=== PATIENT | male | born 1955 | race Caucasian/White ===

== ENCOUNTER → 2016-07-01 | Outpatient (CLI) | payer BC ==
[~2016-07-01] MED LIST: ACET-1256 PO; ASCA500 PO; ASPEC325 PO; BND25X PO; CETI10TA84 PO; CLC100 PO; CLTP PO; CYAN10005 PO; DIPH-437 PO; DXM/4 PO; FLAX1CAP11; GABA10PO PO; GABA300C19 PO; GFNSR600 PO; METO50TA16 PO; MRLP17 PO; MULT-506 PO; OMEGCAP2 PO; PANT40TA PO; POTA20TA16 PO; REVLIMID 5 MG PO; SENN-61 PO; SNQ/25 PO; ZOLEDRONIC ACID IV; [UNRECOGNIZED DRUG - OTHER] IV
--- NOTE | 2016-07-01 12:54 | DIAGNOSTIC IMAGING REPORT ---
RIGHT FOOT MIN 3 VIEWS ROUTINE CLINICAL HISTORY: Myeloma. COMPARISON: Right foot radiographs June 25, 2015. FINDINGS: The tarsometatarsal joints are intact. 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 No osseous lesion is identified by radiography within the right foot. IMPRESSION: 1. No osseous lesion identified within the right foot by radiography. 2. No change in severe arthritis of the right first metatarsophalangeal joint. Electronically signed by: Zack Turcios M.D. 07/01/2016 12:52 PM Dictated Date/Time: 07/01/2016 12:49 PM
--- NOTE | 2016-07-01 12:56 | DIAGNOSTIC IMAGING REPORT ---
LEFT FOOT MIN 3 VIEWS ROUTINE CLINICAL HISTORY: Myeloma. COMPARISON: Left foot radiograph June 25, 2015. FINDINGS: Alignment of the left foot is anatomic. There is severe arthritis of the left first metatarsophalangeal joint. No osseous lesion is identified by radiography within the left foot. IMPRESSION: 1. No osseous lesion within the left by radiography. 2. 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 Electronically signed by: Zack Turcios M.D. 07/01/2016 12:54 PM Dictated Date/Time: 07/01/2016 12:53 PM
--- NOTE | 2016-07-01 13:25 | DIAGNOSTIC IMAGING REPORT ---
SKELETAL SURVEY COMPLETE CLINICAL HISTORY: MYELOMA COMPARISON STUDY: Skeletal survey 05/06/2015. FINDINGS: 19 images of the axial and appendicular skeleton were submitted. Innumerable lytic lesions seen scattered throughout the visualized osseous structures are not significant changed. This is consistent with the patient's history of multiple myeloma. Old pathologic fractures within the ribs and spine remain unchanged. No acute fractures identified. IMPRESSION: Overall, no significant change compared to the prior study. Innumerable lytic lesions consistent with patient's history of multiple myeloma are again noted. Electronically signed by: Keyshawn Gtz M.D. 07/01/2016 1:24 PM Dictated Date/Time: 07/01/2016 12:50 PM
== END | disposition home or self-care (01) ==
LOC: C.RAD 11:12
PROVIDERS: ATTEND Nurse Practitioner
DX: C90.02 Multiple myeloma in relapse (principal)

== ENCOUNTER → 2016-10-12 | Outpatient (CLI) | payer BC ==
[~2016-10-12] MED LIST changes: +GABA-1218 PO; -GABA300C19 PO
--- NOTE | 2016-10-12 12:52 | DIAGNOSTIC IMAGING REPORT ---
CHEST 2 VIEWS ROUTINE CLINICAL HISTORY: Cough, multiple myeloma. COMPARISON STUDY: 08/28/2015 FINDINGS: Haziness at the level of cardiophrenic angles, is a finding which is felt to be secondary to prominent fat pads. The heart is normal in size. There is no failure. There is no focal pulmonary consolidation. There are no pleural effusions. There are old bilateral rib deformities.[ IMPRESSION: No active disease in the chest. Electronically signed by: Joselo Koch M.D. 10/12/2016 12:51 PM Dictated Date/Time: 10/12/2016 12:50 PM
== END | disposition home or self-care (01) ==
LOC: C.RAD 12:25
PROVIDERS: ATTEND Internal Medicine Hematology & Oncology
DX: C90.02 Multiple myeloma in relapse (principal)

== ENCOUNTER → 2016-12-02 | Outpatient (CLI) | payer BC ==
[~2016-12-02] MED LIST changes: -GABA-1218 PO; +GABA300C19 PO
--- NOTE | 2016-12-13 13:45 | PULMONARY FUNCTION TEST ---
Spirometry shows a mild decrease in forced vital capacity and FEV1 with a normal FEV1/FVC ratio. This would be compatible with mild restriction. Repeat study done following bronchodilators showed no significant change in function. Lung volumes showed decreased RV, FRC and TLC. This would be compatible with restriction. Diffusion was mildly decreased at 68%. However, when corrected for alveolar ventilation, it was normal. Clinical correlation is advised.
== END | disposition home or self-care (01) ==
LOC: C.RC 10:25
PROVIDERS: ATTEND Family Medicine
DX: J30.2 Other seasonal allergic rhinitis (principal); C90.00 Multiple myeloma not having achieved remission

== ENCOUNTER → 2017-05-04 | Outpatient (CLI) | payer BC ==
[~2017-05-04] MED LIST changes: +AMOX875T PO; +ASCOTAB PO; +ASPI81TA28 PO; +CALC-354 PO; +CHOL1TAB42 PO; +CLR10 PO; +CRD200 PO; +DFC200 PO; +DIPH25TA33 PO; +FIDA1TAB PO; -FLAX1CAP11; +FLAX1CAP11 PO; +GABA-1218 PO; -GABA300C19 PO; +GUAI1TAB55 PO; +LENA10CA3 PO; +MBXC PO; +METO-722 PO; +METO50TA8 PO; +POLY335019 PO; +POTA-639 PO; -POTA20TA16 PO; +VANC1CAP3 PO
--- NOTE | 2017-05-04 15:41 | DIAGNOSTIC IMAGING REPORT ---
PET/CT FULL BODY CLINICAL HISTORY: 61 years-old Male presenting with MYELOMA. TECHNIQUE: PET/CT was performed from the vertex through the feet following the intravenous administration of 9.204 mCi of F18-FDG. Blood glucose level 85 mg/dL. The injection was performed at 12:35 PM and imaging began at 3:[address] was performed for attenuation correction purposes and anatomic localization. COMPARISON: Skeletal survey from 07/01/2016. CT DOSE (mGy.cm): The estimated cumulative dose is 2499.72. FINDINGS: Head and neck: No FDG-avid mass in the visualized portion of the head or neck. No FDG avid or enlarged lymph nodes in the neck. Chest: No FDG-avid lymphadenopathy or pulmonary opacities. No axillary, supraclavicular, or mediastinal lymphadenopathy. Evaluation of the demarco limited without intravenous contrast. Atherosclerosis of the aorta. Normal heart size. No pericardial or pleural effusion. No focal infiltrate or nodule. Airways patent. Abdomen and pelvis: Normal physiologic distribution of radiotracer in the gastrointestinal and genitourinary tracts. No FDG avid lymphadenopathy or mass lesion. Musculoskeletal: Innumerable lucent lesions throughout the axial and appendicular skeleton compatible with the patient's known diagnosis of multiple myeloma. None of these lesions demonstrate FDG avidity. Lower extremities: Lucent lesions in the more distal appendicular skeleton of the lower extremity are not apparent. No FDG avidity in the lower extremities. IMPRESSION: 1. Initial PET/CT demonstrates aneurysmal lucent lesions throughout the axial and appendicular skeleton compatible with the patient's known diagnosis of multiple myeloma. However, none of these lesions demonstrate FDG avidity. This could be compatible with quiescent disease. Electronically signed by: Edi Washburn M.D. 05/04/2017 3:40 PM Dictated Date/Time: 05/04/2017 3:30 PM
== END | disposition home or self-care (01) ==
LOC: C.PET 11:28
PROVIDERS: ATTEND Internal Medicine Hematology & Oncology
DX: C90.02 Multiple myeloma in relapse (principal)

== ENCOUNTER → 2017-05-23 | Outpatient (CLI) | payer OTHER ==
[~2017-05-23] MED LIST changes: -AMOX875T PO; -ASCOTAB PO; -ASPI81TA28 PO; -CALC-354 PO; -CHOL1TAB42 PO; -CLR10 PO; -CRD200 PO; -DFC200 PO; -DIPH25TA33 PO; -FIDA1TAB PO; +FLAX1CAP11; -FLAX1CAP11 PO; -GUAI1TAB55 PO; -LENA10CA3 PO; -MBXC PO; -METO-722 PO; -METO50TA8 PO; -POLY335019 PO; -POTA-639 PO; +POTA20TA16 PO; -VANC1CAP3 PO
--- NOTE | 2017-05-23 12:06 | DIAGNOSTIC IMAGING REPORT ---
THORACIC SPINE 3 VIEWS ROUTINE, L-SPINE MIN 4 VIEWS ROUTINE HISTORY: 62 years-old Male M54.6,C90.00 acute back pain with history of multiple myeloma COMPARISON: PET CT 05/04/2017, skeletal survey radiographs 07/01/2016 and 05/06/2015 TECHNIQUE: 3 views of the thoracic spine and 5 views of the lumbar spine FINDINGS: THORACIC: Innumerable ill-defined lucent lesions are again seen throughout the thoracic spine and ribs. Chronic compression deformity of T11 again seen. Multilevel endplate degenerative changes are redemonstrated without acute fracture or subluxation identified. LUMBAR: Innumerable ill-defined lucent lesions are seen throughout the lumbar spine and pelvis. Multilevel endplate degenerative changes and facet arthrosis. No acute fracture or subluxation. Probable phleboliths of the right hemipelvis are noted. IMPRESSION: 1. No acute fracture or subluxation of the thoracic or lumbar spine. 2. Innumerable lytic lesions are again seen throughout compatible with patient history of multiple myeloma. 3. Chronic compression deformity of T11. The above report was generated using voice recognition software. It may contain grammatical, syntax or spelling errors. Electronically signed by: Mike Cullen M.D. 05/23/2017 12:05 PM Dictated Date/Time: 05/23/2017 11:59 AM
== END | disposition home or self-care (01) ==
LOC: C.RAD1850 11:20
PROVIDERS: ATTEND Family Medicine
DX: M54.6 Pain in thoracic spine (principal); C90.00 Multiple myeloma not having achieved remission; M53.84 Other specified dorsopathies, thoracic region

== ENCOUNTER → 2017-12-13 | Outpatient (CLI) | payer OTHER ==
[~2017-12-13] MED LIST changes: -ACET-1256 PO; -ASCA500 PO; +ASCOTAB PO; -ASPEC325 PO; +ASPI81TA28 PO; -BND25X PO; +CALC-354 PO; +CHOL1TAB42 PO; -CLC100 PO; +CLR10 PO; -CLTP PO; +CRD200 PO; -CYAN10005 PO; +DIPH25TA33 PO; +FIDA1TAB PO; -FLAX1CAP11; +FLAX1CAP11 PO; -GABA-1218 PO; -GFNSR600 PO; +GUAI1TAB55 PO; +LENA10CA3 PO; +MBXC PO; +METO-722 PO; -METO50TA16 PO; -MRLP17 PO; +POLY335019 PO; +POTA-639 PO; -POTA20TA16 PO; -ZOLEDRONIC ACID IV; -[UNRECOGNIZED DRUG - OTHER] IV
--- NOTE | 2017-12-13 13:57 | DIAGNOSTIC IMAGING REPORT ---
CHEST 2 VIEWS ROUTINE CLINICAL HISTORY: PNEUMONIA dyspnea COMPARISON STUDY: 11/07/2017 FINDINGS: Mild stable cardia megaly. Lungs are considered clear. There are no focal infiltrates. IMPRESSION: Lungs are now considered clear. The above report was generated using voice recognition software. It may contain grammatical, syntax or spelling errors. Electronically signed by: Dante Lee M.D. 12/13/2017 1:56 PM Dictated Date/Time: 12/13/2017 1:54 PM
== END | disposition home or self-care (01) ==
LOC: C.RAD1850 13:45
PROVIDERS: ATTEND Family Medicine
DX: J18.9 Pneumonia, unspecified organism (principal)

== ENCOUNTER 2020-02-29 19:16 | Inpatient (IN) ==
[~2020-02-29 19:16] MED LIST changes: -ASCOTAB PO; -ASPI81TA28 PO; -CALC-354 PO; -CETI10TA84 PO; -CHOL1TAB42 PO; -CLR10 PO; -CRD200 PO; -DIPH-437 PO; -DIPH25TA33 PO; -DXM/4 PO; +ETOMIDATE 2 MG/ML 20 ML VIAL IV ONE; -FIDA1TAB PO; -FLAX1CAP11 PO; -GABA10PO PO; -GUAI1TAB55 PO; -LENA10CA3 PO; -MBXC PO; -METO-722 PO; -MULT-506 PO; -OMEGCAP2 PO; -PANT40TA PO; -POLY335019 PO; -POTA-639 PO; -REVLIMID 5 MG PO; +ROCURONIUM BROMIDE 10 MG/ML 10 ML VIAL IV ONE; -SENN-61 PO; -SNQ/25 PO; +SODIUM CHLORIDE 0.9% 10ML FLUSH IV ONE
[2020-02-29] MEDS ORDERED: ACETAMINOPHEN 500 MG TAB PO STA (19:32)
[2020-02-29] MEDS ORDERED: CEFEPIME 2,000 MG/20 ML VIAL IV STA (19:32)
[2020-02-29] MEDS ORDERED: ACETAMINOPHEN 650 MG SUPP PR STA (19:42)
[2020-02-29] MEDS ORDERED: SODIUM CHLORIDE 0.9% 1000ML 1,000 ML IV SCH (19:45)
--- NOTE | 2020-02-29 20:01 | XRay Report ---
XR chest 1V portable HISTORY: SEPSIS COMPARISON: Chest 12/07/2018. FINDINGS: No pneumothorax. No pleural effusions. The heart remains mildly enlarged. Left subclavian P ort-A-Cath terminates at the SVC. There is a hazy left upper lobe airspace opacity. The right lung ap pears clear. IMPRESSION: Hazy left upper lobe airspace opacity. This likely represents a pneumonia. Recommend follow-up to ens ure resolution. ACT 112: Negative or not required by law. Electronically signed by: Keyshawn Gtz M.D. 02/29/2020 8:00 PM
[2020-02-29 20:04] LABS: Basophils # (auto) 0.03 K/uL (0-0.2); Basophils % (auto) 0.4 %; Hematocrit (blood only) 31.7 % (42-52); Hemoglobin 10.6 g/dL (14.0-18.0); Immature Granulocytes # (auto) 0.26 K/uL (0.00-0.02); Immature Granulocytes % (auto) 3.8 %; Lymphocytes # (auto) 0.69 K/uL (1.2-3.4); Lymphocytes % (auto) 10.2 %; Mean Corpuscular Hemoglobin 35.6 pg (25-34); Mean Corpuscular Hgb Conc 33.4 g/dL (32-36); Mean Corpuscular Volume 106.4 fL (80-100); Mean Platelet Volume 10.4 fL (7.4-10.4); Monocytes # (auto) 0.44 K/uL (0.11-0.59); Monocytes % (auto) 6.5 %; Neutrophils # (auto) 5.35 K/uL (1.4-6.5); Neutrophils % (auto) 79.1 %; Nucleated RBC # (auto) 0.06 K/uL (0-0); Nucleated RBC % (auto) 0.9 %; Platelet Count 145 K/uL (130-400); RDW Standard Deviation 57.9 fL (36.4-46.3); Red Blood Count 2.98 M/uL (4.7-6.1); White Blood Count 6.77 K/uL (4.8-10.8)
[2020-02-29 20:06] LABS: iSTAT Creatinine 2.2 mg/dl (0.6-1.3); iSTAT Hemoglobin 11.2 g/dl (14.0-18.0); iSTAT Ionized Calcium 1.08 mmol/l (1.12-1.32); iSTAT Potassium 3.1 mmol/L (3.3-5.0)
[2020-02-29] MEDS ORDERED: ONDANSETRON INJ 2 MG/ML 2 ML VIAL IV STA (20:06)
[2020-02-29 20:14] LABS: INR 1.2 (0.9-1.1); Partial Thromboplastin Ratio 0.9; Partial Thromboplastin Time 25.5 Seconds (21.0-31.0); Prothrombin Time 12.3 Seconds (9.0-12.0)
--- NOTE | 2020-02-29 20:19 | Emergency Department Note ---
Impression & Plan Sepsis, Acute confusion, Fever, Acute dehydration, Atrial fibrillation with rapid ventricular response, Rhabdomyolysis ED Provider Note NAME: PATRIC MAYER AGE: 64 SEX: M : 1955 ARRIVES VIA: Ambulance INFORMANT: [ems, nurses] ED PROVIDER(S): [Jair Pierre MD] CHIEF COMPLAINT: Illness HISTORY OF PRESENT ILLNESS: The patient is a 64-year-old male who was brought by EMS for an illness and change in mental state. Patient was not seen today by his neighbors. He typically goes out to get his mail/paper and he did not leave his house. They called for a wellness check. The patient was found in his home on the floor, he was confused and it appeared as if he had been down for some time. Blisters were noticed about his body and on his left arm. He was brought for evaluation. No further history is obtainable as the patient is altered. There is no family at the bedside, the history was obtained from the EMS crew and the nursing staff. Of note, there was a mention to the EMS crew from one of the neighbors that they think he may have had cancer therapy yesterday. REVIEW OF SYSTEMS: Unobtainable given his mental state. PMHx/PSHx: See Below SOCIAL HISTORY: See Below. PHYSICAL EXAM: GENERAL: Patient is in significant distress, vomiting. HEENT: No acute trauma, normocephalic atraumatic, mucous membranes dry, no nasal congestion, no scleral icterus. Pupils equal and reactive to light. NECK: No stridor, no adenopathy, no meningismus, trachea is midline. LUNGS: Clear to auscultation bilaterally, no wheeze, no rhonchi, breath sounds equal. Increased respiratory rate, no respiratory distress. HEART: Without murmurs gallops or rubs, definitely tachycardic, irregular rhythm. ABDOMEN: Soft, nontender, bowel sounds positive, no hernias, no peritonitis. EXTREMITIES: No cyanosis or edema, full range of motion of all the joints witho ut pain or difficulty. There is a large bandage about the left forearm from the wrist to the elbow. There is an IV in the left AC. NEUROLOGIC: Awake. Answers to his voice. Confused. Moves all extremities. SKIN: Patient has an erythematous flattened rash across the abdomen primarily on the left. He has several areas of linear clear fluid-filled blisters, one area around the left bicep and one across the mid abdomen. He has clear fluid-filled blisters about his left forearm that have been bandaged. No jaundice. DIFFERENTIAL DIAGNOSIS: Sepsis, UTI, pneumonia, metabolic, intracranial bleeding, UTI, chest or abdominal trauma, cervical spine injury, chemo reaction, coronavirus, electrolyte abnormalities, cardiac sources, intracerebral event, toxicologic, neurologic, as well as other pathologies. EMERGENCY DEPARTMENT COURSE/PROCEDURES: ECG: Indication was tachycardia. The ECG shows a rapid atrial fibrillation with a rate of 151. There is diffuse ST depression/change. No ST elevation. No PVCs. The QTc is 545. Continuous Cardiac Monitoring: An order was placed for continuous cardiac monitoring. The monitor shows a rate of 119 with atrial fibrillation. Critical Care Note: I have personally spent 65 minutes of critical care time in the direct management of this patient. This includes bedside care, interpretation of diagnostic studies, and testing, discussion with consultants, patient, and family members, and other required patient management activities. This 65 minutes is in excess of all separately billable procedures. MEDICAL DECISION MAKING: There is no leukocytosis. The patient is anemic with a hemoglobin of 10.6. The anemia is baseline looking back at previous testing. There is a normal platelet count. No concerning coagulopathy. Renal panel testing shows acute 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 with a creatinine of 2.41. No worrisome electrolyte abnormality. There were some subtle liver enzyme elevations. EKG shows an atrial fibrillation with some ST depression diffusely. Cardiac troponin was slightly elevated consistent with cardiac injury or strain. Procalcitonin level was elevated consistent with infection. Lactic acid level was elevated at over 3 consistent with infection. Urinalysis showed dehydration, there was no obvious infection. Coronavirus testing returned negative. Influenza testing returned negative. Total CK was elevated consistent with rhabdomyolysis. Chest film showed a patchy left upper lung infiltrate, no CHF. Chest CT shows a left upper lung infiltrate. Some chronic findings were noted. No evidence for acute rib fracture. Brain CT showed no acute bleed or mass-effect. C-spine CT showed no acute fracture. Abdominal and pelvis CT showed no acute intra-abdominal injury, there was no free air or evidence for abscess. The patient presented quite ill. He was confused and very febrile. He appeared dehydrated. The patient was aggressively managed. He received 2 L of IV saline, he was given a liter of lactated Ringer's. His port was accessed. A peripheral line was placed. He received IV cefepime and IV vancomycin as empiric antibiotic coverage. He was given IV Zofran for nausea. He received IV Lopressor to help control the heart rate. He was given rectal and then IV Tylenol. He was placed on a cooling blanket. With the above treatment, the patient has made improvement. His heart rate has come down, his temperature has come down. He is now answering questions. He states he fell yesterday and could not get up on his own. He has not had chemo treatment for about 4 weeks. He feels weak and thirsty right now. He denies pain. I reexamined the patient after he was more alert. He does not have meningismus. He is resting comfortably. He does not appear in respiratory distress. I spoke to the patient's sisters over the phone. As per their conversation with the patient, he is not to be aggressively resuscitated. He does not want to be on a ventilator or want CPR. He wants to be made comfortable. Hydration, antibiotics, oxygen therapy would be welcomed. Patient is aware of his findings thus far. I did speak to the ICU biomedical scientist. I spoke with the on-call hospitalist. Case management has been involved. Admission is clearly warranted. At this point, it appears he has pneumonia, bacteremia is a concern and blood cultures are of course pending. He was quite dehydrated and appears to be in rhabdomyolysis, likely from his prolonged downtime. Past Med/Surg History Medical History Atrial fibrillation DX SUMMER 2017 - FOLLOWS W/ DR. KENNEY Constipation GERD (gastroesophageal reflux disease) HTN (hypertension) Multiple myeloma Neuropathy BL FOOT; 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 CANCER TREATMENT Seasonal allergies Surgical History History of bone marrow biopsy History of cataract surgery BL History of colonoscopy History of incision and drainage CYST - RT GROIN History of stem cell transplant History of surgery CYST REMOVED FROM COCCYX 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; 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 Family History (System 10/30/19 @ 15:37 by Maricel Arizmendi) Family/Other Family history of diabetes mellitus Social History Smoking Status: Never smoker Second Hand Exposure: No; Do You Dip or Chew Tobacco: No; Hx Alcohol Use: Yes Alcohol type: wine Hx Substance Use: No Preferred Language: Maltese Communication Ability: Effective Predatory Animal Exterminator Required: No Beliefs That Will Affect Care: None Current Living Situation: Alone Other Information That Helps Us Care for You: No Feels Safe at Home: Yes Safety Concerns: Feels Safe At This Time Assistive Devices: None Allergies Allergies Allergy/AdvReac Type Severity Reaction Status Date / Time epinephrine Allergy Intermediate STATES Verified 10/30/19 15:37 GETS A "WARNER" levofloxacin Allergy Intermediate RASH Verified 02/29/20 22:23 Sulfa (Sulfonamide Allergy Intermediate Rash Verified 02/29/20 22:24 Antibiotics) house dust Allergy Unknown Itchy Verified 02/29/20 22:24 Eye(s) Home Meds Home Medications Medication Instructions Recorded Confirmed Calcium 600 + D(3) 1 cap PO QAM 08/07/18 02/29/20 acyclovir 400 mg PO BID 08/07/18 02/29/20 aspirin 81 mg PO QAM 08/07/18 02/29/20 cyanocobalamin (vitamin B-12) 1,000 mcg PO QAM 08/07/18 02/29/20 [Vitamin B-12] gabapentin 300 mg PO TID 08/07/18 02/29/20 guaifenesin [Mucinex] 600 mg PO Q12H PRN 08/07/18 02/29/20 metoprolol tartrate 50 mg PO TID 08/07/18 02/29/20 omega [id number] oil [Fish Oil] 2 cap PO QAM 08/07/18 02/29/20 pantoprazole 40 mg PO BID 08/07/18 02/29/20 ascorbic acid (vitamin C) 500 mg 500 mg PO QAM cap 02/23/19 02/29/20 capsule dexamethasone 4 mg tablet See Rx Instructions .ROUTE 02/23/19 02/29/20 .COMPLEX tab hydrochlorothiazide 12.5 mg PO QAM 06/08/19 02/29/20 potassium chloride 20 meq PO QAM 06/08/19 02/29/20 acetaminophen [Tylenol Extra 500 mg PO Q6H PRN 02/29/20 02/29/20 Strength] cetirizine 10 mg PO BID PRN 02/29/20 02/29/20 cod liver oil 1 cap PO DAILY 02/29/20 02/29/20 docusate sodium [Colace] 100 mg PO DAILY PRN 02/29/20 02/29/20 flaxseed oil 1 ea MISCELLANEOUS DAILY 02/29/20 02/29/20 fluticasone propionate [Flonase] 2 spray INTRANASAL DAILY 02/29/20 02/29/20 Previous Rx's Medication Instructions Recorded doxepin 100 mg capsule 100 mg PO HS #90 cap 02/25/20 Results & Data (ED) Vital Signs Vital Signs - 24 hr 02/29/20 19:20 02/29/20 19:22 02/29/20 19:35 Temperature Temperature Source Pulse Rate 133 H 130 H 152 H Pulse Rate from SpO2 Sensor 109 H 118 H 105 H Respiratory Rate 35 H 34 H Respiratory Effort / Characteristics Blood Pressure 199/91 H Blood Pressure Mean 108 Pulse Oximetry 93 93 94 Oxygen Delivery Method Room Air Room Air Room Air Oxygen Flow Rate Sepsis Recent Fever Within 48 Hours Sepsis New/Unexplained Change in Mental Status Sepsis Action Taken by Nursing 02/29/20 19:40 02/29/20 19:50 02/29/20 19:55 Temperature 41.2 C H 42.1 C H Temperature Source Rectal Pulse Rate 150 H 152 H Pulse Rate from SpO2 Sensor 113 H 112 H Respiratory Rate 32 H 40 H Respiratory Effort / Characteristics Blood Pressure 199/91 H Blood Pressure Mean 127 Pulse Oximetry 94 96 Oxygen Delivery Method Room Air Room Air Oxygen Flow Rate Sepsis Recent Fever Within 48 Hours Yes Sepsis New/Unexplained Change in Mental Status Yes Sepsis Action Taken by Nursing Physician Notified 02/29/20 20:00 02/29/20 20:10 02/29/20 20:20 Temperature Temperature Source Pulse Rate 142 H 144 H 160 H Pulse Rate from SpO2 Sensor 108 H 111 H 144 H Respiratory Rate 31 H 26 H 26 H Respiratory Effort / Characteristics Blood Pressure 173/91 H Blood Pressure Mean 106 Pulse Oximetry 93 95 90 Oxygen Delivery Method Room Air Room Air Room Air Oxygen Flow Rate Sepsis Recent Fever Within 48 Hours Sepsis New/Unexplained Change in Mental Status Sepsis Action Taken by Nursing 02/29/20 20:21 02/29/20 20:30 02/29/20 20:31 Temperature Temperature Source Pulse Rate 130 H 147 H 148 H Pulse Rate from SpO2 Sensor 116 H 123 H 125 H Respiratory Rate 13 32 H 54 H Respiratory Effort / Characteristics Non-Labored Blood Pressure 153/70 H Blood Pressure Mean 100 Pulse Oximetry 95 89 L 95 Oxygen Delivery Method Room Air Oxygen Flow Rate Sepsis Recent Fever Within 48 Hours Sepsis New/Unexplained Change in Mental Status Sepsis Action Taken by Nursing 02/29/20 20:40 02/29/20 21:00 02/29/20 21:02 Temperature Temperature Source Pulse Rate 147 H Pulse Rate from SpO2 Sensor 138 H 132 H Respiratory Rate 22 Respiratory Effort / Characteristics Blood Pressure 178/64 H Blood Pressure Mean 76 Pulse Oximetry 95 Oxygen Delivery Method Room Air Room Air Room Air Oxygen Flow Rate Sepsis Recent Fever Within 48 Hours Sepsis New/Unexplained Change in Mental Status Sepsis Action Taken by Nursing 02/29/20 21:10 02/29/20 21:11 02/29/20 21:12 Temperature Temperature Source Pulse Rate 137 H 133 H 109 H Pulse Rate from SpO2 Sensor 115 H 130 H 101 H Respiratory Rate 33 H 20 21 Respiratory Effort / Characteristics Blood Pressure 169/77 H Blood Pressure Mean 102 Pulse Oximetry 90 88 L 92 Oxygen Delivery Method Room Air Room Air Nasal Cannula Oxygen Flow Rate 2 Sepsis Recent Fever Within 48 Hours Sepsis New/Unexplained Change in Mental Status Sepsis Action Taken by Nursing 02/29/20 21:18 02/29/20 21:20 02/29/20 21:21 Temperature Temperature Source Pulse Rate 109 H 112 H Pulse Rate from SpO2 Sensor 107 H 105 H Respiratory Rate 27 H 23 Respiratory Effort / Characteristics Blood Pressure 159/87 H Blood Pressure Mean 99 Pulse Oximetry 92 95 Oxygen Delivery Method Nasal Cannula Nasal Cannula Nasal Cannula Oxygen Flow Rate 2 2 2 Sepsis Recent Fever Within 48 Hours Sepsis New/Unexplained Change in Mental Status Sepsis Action Taken by Nursing 02/29/20 21:30 02/29/20 21:31 02/29/20 21:40 Temperature Temperature Source Pulse Rate 110 H 114 H 130 H Pulse Rate from SpO2 Sensor 115 H 106 H 117 H Respiratory Rate 21 19 21 Respiratory Effort / Characteristics Blood Pressure 142/66 H Blood Pressure Mean 115 Pulse Oximetry 94 94 Oxygen Delivery Method Nasal Cannula Nasal Cannula Nasal Cannula Oxygen Flow Rate 2 2 2 Sepsis Recent Fever Within 48 Hours Sepsis New/Unexplained Change in Mental Status Sepsis Action Taken by Nursing 02/29/20 21:41 02/29/20 21:50 02/29/20 21:52 Temperature Temperature Source Pulse Rate 111 H 119 H 133 H Pulse Rate from SpO2 Sensor 115 H 113 H 120 H Respiratory Rate 26 H 24 29 H Respiratory Effort / Characteristics Blood Pressure 94/72 L 141/78 H Blood Pressure Mean 74 108 Pulse Oximetry 95 97 96 Oxygen Delivery Method Nasal Cannula Nasal Cannula Nasal Cannula Oxygen Flow Rate 2 2 2 Sepsis Recent Fever Within 48 Hours Sepsis New/Unexplained Change in Mental Status Sepsis Action Taken by Nursing 02/29/20 22:00 02/29/20 22:01 02/29/20 22:02 Temperature Temperature Source Pulse Rate 114 H 119 H 120 H Pulse Rate from SpO2 Sensor 118 H 122 H 118 H Respiratory Rate 26 H 29 H 29 H Respiratory Effort / Characteristics Blood Pressure 149/67 H Blood Pressure Mean 102 Pulse Oximetry 97 96 98 Oxygen Delivery Method Nasal Cannula Nasal Cannula Nasal Cannula Oxygen Flow Rate 2 2 2 Sepsis Recent Fever Within 48 Hours Sepsis New/Unexplained Change in Mental Status Sepsis Action Taken by Nursing 02/29/20 22:06 02/29/20 22:10 02/29/20 22:11 Temperature 39.1 C H Temperature Source Friedman Cath ( Temp Sensing) Pulse Rate 111 H 132 H Pulse Rate from SpO2 Sensor 121 H 122 H Respiratory Rate 21 25 H Respiratory Effort / Characteristics Blood Pressure 144/85 H Blood Pressure Mean 105 Pulse Oximetry 96 Oxygen Delivery Method Nasal Cannula Nasal Cannula Oxygen Flow Rate 2 2 Sepsis Recent Fever Within 48 Hours Sepsis New/Unexplained Change in Mental Status Sepsis Action Taken by Nursing 02/29/20 22:20 02/29/20 22:30 02/29/20 22:31 Temperature Temperature Source Pulse Rate 119 H Pulse Rate from SpO2 Sensor 118 H 109 H 109 H Respiratory Rate 16 19 19 Respiratory Effort / Characteristics Blood Pressure 109/77 Blood Pressure Mean 92 Pulse Oximetry 93 95 95 Oxygen Delivery Method Nasal Cannula Nasal Cannula Nasal Cannula Oxygen Flow Rate 2 2 2 Sepsis Recent Fever Within 48 Hours Sepsis New/Unexplained Change in Mental Status Sepsis Action Taken by Nursing 02/29/20 22:32 02/29/20 22:41 02/29/20 22:51 Temperature 38.8 C H Temperature Source Friedman Cath ( Temp Sensing) Pulse Rate 123 H 113 H Pulse Rate from SpO2 Sensor 105 H 107 H Respiratory Rate 20 20 Respiratory Effort / Characteristics Blood Pressure 109/87 136/75 Blood Pressure Mean 92 96 Pulse Oximetry 92 97 Oxygen Delivery Method Nasal Cannula Nasal Cannula Nasal Cannula Oxygen Flow Rate 2 2 2 Sepsis Recent Fever Within 48 Hours Sepsis New/Unexplained Change in Mental Status Sepsis Action Taken by Nursing 02/29/20 22:54 02/29/20 23:01 02/29/20 23:12 Temperature 38.7 C H Temperature Source Friedman Cath ( Temp Sensing) Pulse Rate 114 H 110 H Pulse Rate from SpO2 Sensor 106 H 107 H Respiratory Rate 18 16 Respiratory Effort / Characteristics Blood Pressure 159/84 H 115/76 Blood Pressure Mean 89 82 Pulse Oximetry 93 96 Oxygen Delivery Method Nasal Cannula Nasal Cannula Oxygen Flow Rate 2 2 Sepsis Recent Fever Within 48 Hours Sepsis New/Unexplained Change in Mental Status Sepsis Action Taken by Usp Medications Current Medication List: was personally reviewed by me Laboratory Data Attestation: I reviewed the patient's lab results. Result diagrams: 02/29/20 19:45 02/29/20 19:45 Lab Results 02/29/20 02/29/20 02/29/20 Range/Units 19:45 19:45 19:45 WBC 6.77 (4.8-10.8) K/uL RBC 2.98 L (4.7-6.1) M/uL Hgb 10.6 L (14.0-18.0) g/dL POC Hgb (14.0-18.0) g/dl Hct 31.7 L (42-52) % POC Hct (42-52) % MCV 106.4 H (80-100) fL MCH 35.6 H (25-34) pg MCHC 33.4 (32-36) g/dL RDW Std Deviation 57.9 H (36.4-46.3) fL RDW Coeff of Elvira 15.0 H (11.5-14.5) % Plt Count 145 (130-400) K/uL MPV 10.4 (7.4-10.4) fL Immature Gran % (Auto) 3.8 % Neut % (Auto) 79.1 % Lymph % (Auto) 10.2 % Ness % (Auto) 6.5 % Eos % (Auto) 0.0 % Baso % (Auto) 0.4 % Neut # (Auto) 5.35 (1.4-6.5) K/uL Lymph # (Auto) 0.69 L (1.2-3.4) K/uL Ness # (Auto) 0.44 (0.11-0.59) K/uL Eos # (Auto) 0.00 (0-0.5) K/uL Baso # (Auto) 0.03 (0-0.2) K/uL Immature Gran # (Auto) 0.26 H (0.00-0.02) K/uL Absolute Nucleated RBC 0.06 H (0-0) K/uL Nucleated RBC % (auto) 0.9 % PT 12.3 H (9.0-12.0) Seconds INR 1.2 H (0.9-1.1) APTT 25.5 (21.0-31.0) Seconds PTT Ratio 0.9 POC Sodium (135-144) mmol/L Sodium 135 L (136-145) mmol/L POC Potassium (3.3-5.0) mmol/L Potassium 3.1 L (3.5-5.1) mmol/L POC Chloride (101-112) mmol/L Chloride 103 (98-107) mmol/L Carbon Dioxide 21 (21-32) mmol/L POC Total CO2 (24-31) mmol/L Anion Gap 11.0 (3-11) POC Anion Gap (16-25) mmol/L POC BUN (7-18) mg/dl BUN 21 H (7-18) mg/dl Creatinine 2.41 H (0.6-1.4) mg/dl POC Creatinine (0.6-1.3) mg/dl Est Cr Clr Drug Dosing Not Reportable Est GFR ( Amer) 32.1 Est GFR (Non-Af Amer) 27.7 BUN/Creatinine Ratio 8.7 L (10-20) Glucose 201 H (70-99) mg/dl POC Glucose (other) (70-99) mg/dl Lactate (0.4-2.0) mmol/L Calcium 8.9 (8.5-10.1) mg/dl POC Ioniz Calcium Terrell (1.12-1.32) mmol/l Magnesium 2.4 (1.8-2.4) mg/dl Total Bilirubin 1.9 H (0.2-1) mg/dl AST 374 H (15-37) U/L ALT 85 H (12-78) U/L Alkaline Phosphatase 65 (45-117) U/L Total Creatine Kinase 29042 H (39-308) U/L Troponin I 0.885 H* (0-0.045) ng/ml Total Protein 9.2 H (6.4-8.2) gm/dl Albumin 2.9 L (3.4-5.0) gm/dl Globulin 6.3 H (2.5-4.0) gm/dl Albumin/Globulin Ratio 0.5 L (0.9-2) Procalcitonin (0-0.5) ng/ml Urine Color Urine Appearance (Clear) Urine pH (4.5-7.5) Ur Specific Evans (1.000-1.030) Urine Protein (Negative) Urine Glucose (UA) (Negative) Urine Ketones (Negative) Urine Blood (Negative) Urine Nitrite (Negative) Urine Bilirubin (Negative) Urine Urobilinogen (Negative) Ur Leukocyte Esterase (Negative) Urine WBC (Auto) (0-5) /hpf Urine RBC (Auto) (0-4) /hpf U Hyaline Cast (Auto) (0-5) /lpf U Epithel Cells (Auto) (0-5) /lpf Urine Bacteria (Auto) (Negative) Ur Renal Epithelial Cell (0-5) /lpf Granular Casts (0) /lpf COVID-19 Eval Order COVID-19 PCR (Negative) Influ A Molecular Assay (Negative) Influ B Molecular Assay (Negative) 02/29/20 02/29/20 02/29/20 Range/Units 19:45 19:54 20:01 WBC (4.8-10.8) K/uL RBC (4.7-6.1) M/uL Hgb (14.0-18.0) g/dL POC Hgb 11.2 L (14.0-18.0) g/dl Hct (42-52) % POC Hct 33 L (42-52) % MCV (80-100) fL MCH (25-34) pg MCHC (32-36) g/dL RDW Std Deviation (36.4-46.3) fL RDW Coeff of Elvira (11.5-14.5) % Plt Count (130-400) K/uL MPV (7.4-10.4) fL Immature Gran % (Auto) % Neut % (Auto) % Lymph % (Auto) % Ness % (Auto) % Eos % (Auto) % Baso % (Auto) % Neut # (Auto) (1.4-6.5) K/uL Lymph # (Auto) (1.2-3.4) K/uL Ness # (Auto) (0.11-0.59) K/uL Eos # (Auto) (0-0.5) K/uL Baso # (Auto) (0-0.2) K/uL Immature Gran # (Auto) (0.00-0.02) K/uL Absolute Nucleated RBC (0-0) K/uL Nucleated RBC % (auto) % PT (9.0-12.0) Seconds INR (0.9-1.1) APTT (21.0-31.0) Seconds PTT Ratio POC Sodium 137 (135-144) mmol/L Sodium (136-145) mmol/L POC Potassium 3.1 L (3.3-5.0) mmol/L Potassium (3.5-5.1) mmol/L POC Chloride 103 (101-112) mmol/L Chloride (98-107) mmol/L Carbon Dioxide (21-32) mmol/L POC Total CO2 18 L (24-31) mmol/L Anion Gap (3-11) POC Anion Gap 21.0 (16-25) mmol/L POC BUN 21 H (7-18) mg/dl BUN (7-18) mg/dl Creatinine (0.6-1.4) mg/dl POC Creatinine 2.2 H (0.6-1.3) mg/dl Est Cr Clr Drug Dosing Est GFR ( Amer) Est GFR (Non-Af Amer) BUN/Creatinine Ratio (10-20) Glucose (70-99) mg/dl POC Glucose (other) 200 H (70-99) mg/dl Lactate 3.6 H* (0.4-2.0) mmol/L Calcium (8.5-10.1) mg/dl POC Ioniz Calcium Terrell 1.08 L (1.12-1.32) mmol/l Magnesium (1.8-2.4) mg/dl Total Bilirubin (0.2-1) mg/dl AST (15-37) U/L ALT (12-78) U/L Alkaline Phosphatase (45-117) U/L Total Creatine Kinase (39-308) U/L Troponin I (0-0.045) ng/ml Total Protein (6.4-8.2) gm/dl Albumin (3.4-5.0) gm/dl Globulin (2.5-4.0) gm/dl Albumin/Globulin Ratio (0.9-2) Procalcitonin 2.27 H (0-0.5) ng/ml Urine Color Urine Appearance (Clear) Urine pH (4.5-7.5) Ur Specific Evans (1.000-1.030) Urine Protein (Negative) Urine Glucose (UA) (Negative) Urine Ketones (Negative) Urine Blood (Negative) Urine Nitrite (Negative) Urine Bilirubin (Negative) Urine Urobilinogen (Negative) Ur Leukocyte Esterase (Negative) Urine WBC (Auto) (0-5) /hpf Urine RBC (Auto) (0-4) /hpf U Hyaline Cast (Auto) (0-5) /lpf U Epithel Cells (Auto) (0-5) /lpf Urine Bacteria (Auto) (Negative) Ur Renal Epithelial Cell (0-5) /lpf Granular Casts (0) /lpf COVID-19 Eval Order COVID-19 PCR (Negative) Influ A Molecular Assay (Negative) Influ B Molecular Assay (Negative) 02/29/20 02/29/20 02/29/20 Range/Units 20:22 20:22 20:22 WBC (4.8-10.8) K/uL RBC (4.7-6.1) M/uL Hgb (14.0-18.0) g/dL POC Hgb (14.0-18.0) g/dl Hct (42-52) % POC Hct (42-52) % MCV (80-100) fL MCH (25-34) pg MCHC (32-36) g/dL RDW Std Deviation (36.4-46.3) fL RDW Coeff of Elvira (11.5-14.5) % Plt Count (130-400) K/uL MPV (7.4-10.4) fL Immature Gran % (Auto) % Neut % (Auto) % Lymph % (Auto) % Ness % (Auto) % Eos % (Auto) % Baso % (Auto) % Neut # (Auto) (1.4-6.5) K/uL Lymph # (Auto) (1.2-3.4) K/uL Ness # (Auto) (0.11-0.59) K/uL Eos # (Auto) (0-0.5) K/uL Baso # (Auto) (0-0.2) K/uL Immature Gran # (Auto) (0.00-0.02) K/uL Absolute Nucleated RBC (0-0) K/uL Nucleated RBC % (auto) % PT (9.0-12.0) Seconds INR (0.9-1.1) APTT (21.0-31.0) Seconds PTT Ratio POC Sodium (135-144) mmol/L Sodium (136-145) mmol/L POC Potassium (3.3-5.0) mmol/L Potassium (3.5-5.1) mmol/L POC Chloride (101-112) mmol/L Chloride (98-107) mmol/L Carbon Dioxide (21-32) mmol/L POC Total CO2 (24-31) mmol/L Anion Gap (3-11) POC Anion Gap (16-25) mmol/L POC BUN (7-18) mg/dl BUN (7-18) mg/dl Creatinine (0.6-1.4) mg/dl POC Creatinine (0.6-1.3) mg/dl Est Cr Clr Drug Dosing Est GFR ( Amer) Est GFR (Non-Af Amer) BUN/Creatinine Ratio (10-20) Glucose (70-99) mg/dl POC Glucose (other) (70-99) mg/dl Lactate (0.4-2.0) mmol/L Calcium (8.5-10.1) mg/dl POC Ioniz Calcium Terrell (1.12-1.32) mmol/l Magnesium (1.8-2.4) mg/dl Total Bilirubin (0.2-1) mg/dl AST (15-37) U/L ALT (12-78) U/L Alkaline Phosphatase (45-117) U/L Total Creatine Kinase (39-308) U/L Troponin I (0-0.045) ng/ml Total Protein (6.4-8.2) gm/dl Albumin (3.4-5.0) gm/dl Globulin (2.5-4.0) gm/dl Albumin/Globulin Ratio (0.9-2) Procalcitonin (0-0.5) ng/ml Urine Color Urine Appearance (Clear) Urine pH (4.5-7.5) Ur Specific Evans (1.000-1.030) Urine Protein (Negative) Urine Glucose (UA) (Negative) Urine Ketones (Negative) Urine Blood (Negative) Urine Nitrite (Negative) Urine Bilirubin (Negative) Urine Urobilinogen (Negative) Ur Leukocyte Esterase (Negative) Urine WBC (Auto) (0-5) /hpf Urine RBC (Auto) (0-4) /hpf U Hyaline Cast (Auto) (0-5) /lpf U Epithel Cells (Auto) (0-5) /lpf Urine Bacteria (Auto) (Negative) Ur Renal Epithelial Cell (0-5) /lpf Granular Casts (0) /lpf COVID-19 Eval Order Covid19 Done at [facility] COVID-19 PCR NEGATIVE (Negative) Influ A Molecular Assay Negative (Negative) Influ B Molecular Assay Negative (Negative) 02/29/20 02/29/20 Range/Units 21:48 21:48 WBC (4.8-10.8) K/uL RBC (4.7-6.1) M/uL Hgb (14.0-18.0) g/dL POC Hgb (14.0-18.0) g/dl Hct (42-52) % POC Hct (42-52) % MCV (80-100) fL MCH (25-34) pg MCHC (32-36) g/dL RDW Std Deviation (36.4-46.3) fL RDW Coeff of Elvira (11.5-14.5) % Plt Count (130-400) K/uL MPV (7.4-10.4) fL Immature Gran % (Auto) % Neut % (Auto) % Lymph % (Auto) % Ness % (Auto) % Eos % (Auto) % Baso % (Auto) % Neut # (Auto) (1.4-6.5) K/uL Lymph # (Auto) (1.2-3.4) K/uL Ness # (Auto) (0.11-0.59) K/uL Eos # (Auto) (0-0.5) K/uL Baso # (Auto) (0-0.2) K/uL Immature Gran # (Auto) (0.00-0.02) K/uL Absolute Nucleated RBC (0-0) K/uL Nucleated RBC % (auto) % PT (9.0-12.0) Seconds INR (0.9-1.1) APTT (21.0-31.0) Seconds PTT Ratio POC Sodium (135-144) mmol/L Sodium (136-145) mmol/L POC Potassium (3.3-5.0) mmol/L Potassium (3.5-5.1) mmol/L POC Chloride (101-112) mmol/L Chloride (98-107) mmol/L Carbon Dioxide (21-32) mmol/L POC Total CO2 (24-31) mmol/L Anion Gap (3-11) POC Anion Gap (16-25) mmol/L POC BUN (7-18) mg/dl BUN (7-18) mg/dl Creatinine (0.6-1.4) mg/dl POC Creatinine (0.6-1.3) mg/dl Est Cr Clr Drug Dosing Est GFR ( Amer) Est GFR (Non-Af Amer) BUN/Creatinine Ratio (10-20) Glucose (70-99) mg/dl POC Glucose (other) (70-99) mg/dl Lactate 1.9 (0.4-2.0) mmol/L Calcium (8.5-10.1) mg/dl POC Ioniz Calcium [place]rell (1.12-1.32) mmol/l Magnesium (1.8-2.4) mg/dl Total Bilirubin (0.2-1) mg/dl AST (15-37) U/L ALT (12-78) U/L Alkaline Phosphatase (45-117) U/L Total Creatine Kinase (39-308) U/L Troponin I (0-0.045) ng/ml Total Protein (6.4-8.2) gm/dl Albumin (3.4-5.0) gm/dl Globulin (2.5-4.0) gm/dl Albumin/Globulin Ratio (0.9-2) Procalcitonin (0-0.5) ng/ml Urine Color [place] Urine Appearance Turbid A (Clear) Urine pH 5.0 (4.5-7.5) Ur Specific [place] 1.025 (1.000-1.030) Urine Protein 3+ H (Negative) Urine Glucose (UA) Trace H (Negative) Urine Ketones 2+ H (Negative) Urine Blood 3+ H (Negative) Urine Nitrite Negative (Negative) Urine Bilirubin Negative (Negative) Urine Urobilinogen Negative (Negative) Ur Leukocyte Esterase 1+ H (Negative) Urine WBC (Auto) 10-30 H (0-5) /hpf Urine RBC (Auto) 10-30 H (0-4) /hpf U Hyaline Cast (Auto) >30 H (0-5) /lpf U Epithel Cells (Auto) >30 H (0-5) /lpf Urine Bacteria (Auto) Negative (Negative) Ur Renal Epithelial Cell 0-5 (0-5) /lpf Granular Casts >30 H (0) /lpf COVID-19 Eval Order COVID-19 PCR (Negative) Influ A Molecular Assay (Negative) Influ B Molecular Assay (Negative) Administered Medications Discontinued Medications Acetaminophen (Acetaminophen 650 Mg Supp) 650 mg MI NOW STA Stop: 02/29/20 19:43 Last Admin: 02/29/20 19:55 Dose: 650 mg Documented by: [id number] Sodium Chloride (Nss 1000ml) 1,000 mls @ 999 mls/hr IV .Q1H1M MIRLANDE Stop: 02/29/20 20:45 Last Infusion: 02/29/20 21:32 Dose: 0 mls/hr Documented by: [id number] Admin: 02/29/20 20:36 Dose: 999 mls/hr Documented by: [id number] Cefepime HCl (Maxipime) 2,000 mg in 20 mls @ 5 mls/min IV NOW STA; Protocol Stop: 02/29/20 19:35 Last Admin: 02/29/20 20:35 Dose: 5 mls/min Documented by: [id number] Sodium Chloride (Nss 1000ml) 1,000 mls @ 999 mls/hr IV .Q1H1M ONE Stop: 02/29/20 21:25 Last Infusion: 02/29/20 22:01 Dose: 0 mls/hr Documented by: [id number] Admin: 02/29/20 20:36 Dose: 999 mls/hr Documented by: [id number] Vancomycin HCl 2,000 mg/ (Sodium Chloride) 540 mls @ 200 mls/hr IV NOW ONE Stop: 02/29/20 23:37 Last Infusion: 03/01/20 00:33 Dose: 0 mls/hr Documented by: [id number] Admin: 02/29/20 21:37 Dose: 200 mls/hr Documented by: [id number] Lactated Ringer's (Lr) 1,000 mls @ 999 mls/hr IV .Q1H1M STA Stop: 02/29/20 22:20 Last Infusion: 02/29/20 22:30 Dose: 0 mls/hr Documented by: [id number] Admin: 02/29/20 21:29 Dose: 999 mls/hr Documented by: [id number] Acetaminophen (Ofirmev) 1,000 mg in 100 mls @ 400 mls/hr IV NOW STA Stop: 02/29/20 21:59 Last Infusion: 02/29/20 22:08 Dose: 0 mls/hr Documented by: [id number] Admin: 02/29/20 21:53 Dose: 400 mls/hr Documented by: [id number] Sodium Chloride (Nss 1000ml) 1,000 mls @ 999 mls/hr IV .Q1H1M ONE Stop: 03/01/20 01:30 Last Admin: 03/01/20 01:12 Dose: 999 mls/hr Documented by: [id number] Metoprolol Tartrate (Metoprolol Tartrate 1 Mg/Ml Vial) 5 mg IV NOW STA Stop: 02/29/20 20:32 Last Admin: 02/29/20 21:10 Dose: 5 mg Documented by: [id number] Miscellaneous Information (Vancomycin Consult Active) 1 ea N/A UD PRN PRN Reason: Consult Stop: 03/30/20 20:55 Last Admin: 02/29/20 21:37 Dose: 1 ea Documented by: [id number] Ondansetron HCl (Ondansetron Inj 2 Mg/Ml 2 Ml Vial) 4 mg IV NOW STA Stop: 02/29/20 20:07 Last Admin: 02/29/20 21:09 Dose: 4 mg Documented by: [id number] Imaging Data Radiologist's Impression: XR chest 1V portable HISTORY: SEPSIS COMPARISON: Chest 12/07/2018. FINDINGS: No pneumothorax. No pleural effusions. The heart remains mildly enlarged. Left subclavian Port-A-Cath terminates at the SVC. There is a hazy left upper lobe airspace opacity. The right lung appears clear. IMPRESSION: Hazy left upper lobe airspace opacity. This likely represents a pneumonia. Recommend follow-up to ensure resolution. CT chest wo con, CT abd pelvis wo con CT DOSE: HISTORY: Fall. Trauma. Possible fracture. TECHNIQUE: Multiaxial CT images of the chest, abdomen, pelvis were performed without contrast. A dose lowering technique was utilized adhering to the principles of ALARA. COMPARISON: Chest CT 11/06/2017. Abdomen and pelvis CT 11/03/2017. FINDINGS: Chest CT: No change in the multiple chronic wyvp-bn-jposdryh compression deformities seen throughout the majority thoracic spine. This most pronounced at T12. No associated retropulsion. There are again noted innumerable small lytic lesions seen scattered throughout the visualized osseous structures consistent with the patient's history of multiple myeloma. A few old bilateral rib fractures. No acute fractures identified within the chest. A left subclavian Port-A-Cath terminates at the proximal SVC. No pneumothorax. The central airways are patent. Mild respiratory motion artifact. Patchy area of consolidation involving the left upper lobe. This likely represents a pneumonia. No mediastinal or hilar lymphadenopathy. Normal caliber thoracic aorta. The heart is normal in size. No pleural or pericardial effusions. Abdomen/pelvis CT: No pneumoperitoneum. No pneumatosis. Innumerable lytic lesions seen scattered throughout the visualized osseous structures consistent with patient's history of multiple myeloma. No acute fractures within the visualized osseous structures. Small fat-containing umbilical hernia. Small fat- containing left inguinal hernia. The bladder is decompressed by a Friedman catheter. There are small extrapleural soft tissue nodules seen within the right posterior hemithorax anterior to the right lower ribs. The largest on image 53 measures 2.2 x 0.9 cm. These are new compared to the prior study could represent small plasmacytomas mild hepatic steatosis. The unenhanced gallbladder, pancreas, spleen, adrenal glands, and left kidney are within normal limits. There is a 1 cm hypodense lesion within the right kidney. This is incompletely characterized on this noncontrast study. No hydronephrosis. No retroperitoneal lymphadenopathy. Normal caliber abdominal aorta. No pelvic free fluid. Suboptimal evaluation for bowel pathology due to the lack of intravenous and oral contrast. However, there is no definite bowel wall thickening or obstruction. Normal appendix. IMPRESSION: 1. No acute traumatic process within the chest, abdomen, or pelvis. 2. Old, healed fractures within the ribs and thoracic spine are again noted. 3. Innumerable scattered lytic lesions seen throughout the visualized osseous structures consistent with the patient's known history of multiple myeloma. 4. Small extrapleural soft tissue nodule seen within the right posterior hemithorax anterior to the right lower ribs. 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 5. Additional findings as described above. HEAD CT NONCONTRAST CT DOSE: HISTORY: Fall. confusion TECHNIQUE: Multiaxial CT images of the head were performed without the use of intravenous contrast. Automated exposure control was utilized for this study. A dose lowering technique was utilized adhering to the principles of ALARA. Comparison: None. Findings: Trace fluid level within the left maxillary sinus and left anterior ethmoid air cells. The mastoid air cells are clear. The calvarium and skull base are intact. The ventricles and sulci are within normal limits. There is no mass, hematoma, midline shift, or acute infarct. Impression: No acute intracranial abnormality. CERVICAL SPINE CT CT DOSE: 3443.69 mGy.cm HISTORY: Fall. TECHNIQUE: Multiaxial CT images of the cervical spine were performed and reformatted in the sagittal and coronal plane without the use of contrast. A dose lowering technique was utilized adhering to the principles of ALARA. COMPARISON: None. FINDINGS: No fractures. No subluxation. Prevertebral soft tissues and the C1-C2 interval are intact. No pneumothorax. Multiple lytic lesions consistent with the patient's known history of multiple myeloma. Disc space narrowing at C5-C6 and C6-C7. IMPRESSION: No fractures within the cervical spine. Multiple myeloma. Head Trauma GCS Score: 13 Discharge Plan Visit Data Chief Complaint: Illness Stated Complaint: SEMI RESPONSIVE, FALL, FEVER ED Provider: Jair Pierre Discharge Problem: Sepsis, Acute confusion, Fever, Acute dehydration, Atrial fibrillation with rapid ventricular response, Rhabdomyolysis Patient Disposition: Admitted As Inpatient Condition: Serious Discharge Instructions Interventions: ED Discharge Assessment Last Done: 02/29/20 23:45 Discharge Problem: Sepsis Qualifiers: Sepsis type: sepsis due to unspecified organism Sepsis acute organ dysfunction status: with acute organ dysfunction Severe sepsis acute organ dysfunction type: encephalopathy Severe sepsis shock status: without septic shock Qualified Code(s): A41.9 - Sepsis, unspecified organism Fever Qualifiers: Fever type: unspecified Qualified Code(s): R50.9 - Fever, unspecified Rhabdomyolysis Qualifiers: Rhabdomyolysis type: non-traumatic Qualified Code(s): M62.82 - Rhabdomyolysis
[2020-02-29 20:21] LABS: Alanine Aminotransferase 85 U/L (12-78); Albumin Level 2.9 gm/dl (3.4-5.0); Aspartate Aminotransferase 374 U/L (15-37); BUN Creatinine Ratio 8.7 (10-20); Blood Urea Nitrogen 21 mg/dl (7-18); Calcium 8.9 mg/dl (8.5-10.1); Carbon Dioxide 21 mmol/L (21-32); Chloride 103 mmol/L (98-107); Est GFR (African American) 32.1; Est GFR (Non-African American) 27.7; Glucose 201 mg/dl (70-99); Magnesium 2.4 mg/dl (1.8-2.4); Potassium 3.1 mmol/L (3.5-5.1); Sodium 135 mmol/L (136-145)
[2020-02-29] MEDS ORDERED: SODIUM CHLORIDE 0.9% 1000ML 1,000 ML IV ONE (20:25)
[2020-02-29 20:30] LABS: Albumin Globulin Ratio 0.5 (0.9-2); Alkaline Phosphatase 65 U/L (45-117); Bilirubin,Total 1.9 mg/dl (0.2-1); Globulin 6.3 gm/dl (2.5-4.0); Total Protein 9.2 gm/dl (6.4-8.2); Troponin I 0.885 ng/ml (0-0.045)
[2020-02-29] MEDS ORDERED: METOPROLOL TARTRATE 1 MG/ML VIAL IV STA (20:31)
[2020-02-29] MEDS ORDERED: VANCOMYCIN CONSULT ACTIVE PRN (20:56)
[2020-02-29] MEDS ORDERED: VANCOMYCIN HCL 2,000 MG in SODIUM CHLORIDE 0.9% 500 ML IV ONE (20:56)
[2020-02-29] MEDS ORDERED: LACTATED RINGER'S 1,000 ML IV STA (21:20)
--- NOTE | 2020-02-29 21:35 | CT Scan Report ---
CT chest wo con, CT abd pelvis wo con CT DOSE: HISTORY: Fall. Trauma. Possible fracture. TECHNIQUE: Multiaxial CT images of the chest, abdomen, pelvis were performed without contrast. A dos e lowering technique was utilized adhering to the principles of ALARA. COMPARISON: Chest CT 11/06/2017. Abdomen and pelvis CT 11/03/2017. FINDINGS: Chest CT: No change in the multiple chronic ehmt-ip-bqjsixyz compression deformities seen throughout the majority thoracic spine. This most pronounced at T12. No associated retropulsion. There are again noted innumerable small lytic lesions seen scattered throughout the visualized osseous structures co nsistent with the patient's history of multiple myeloma. A few old bilateral rib fractures. No acute fractures identified within the chest. A left subclavian Port-A-Cath terminates at the proximal SVC. No pneumothorax. The central airways are patent. Mild respiratory motion artifact. Patchy area of con solidation involving the left upper lobe. This likely represents a pneumonia. No mediastinal or hilar lymphadenopathy. Normal caliber thoracic aorta. The heart is normal in size. No pleural or pericardi al effusions. Abdomen/pelvis CT: No pneumoperitoneum. No pneumatosis. Innumerable lytic lesions seen scattered thro ughout the visualized osseous structures consistent with patient's history of multiple myeloma. No ac [place] fractures within the visualized osseous structures. Small fat-containing umbilical hernia. Small fat-containing left inguinal hernia. The bladder is decompressed by a Friedman catheter. There are small extrapleural soft tissue nodules seen within the right posterior hemithorax anterior to the right lo wer ribs. The largest on image 53 measures 2.2 x 0.9 cm. These are new compared to the prior study co uld represent small plasmacytomas mild hepatic steatosis. The unenhanced gallbladder, pancreas, splee n, adrenal glands, and left kidney are within normal limits. There is a 1 cm hypodense lesion within the right kidney. This is incompletely characterized on this noncontrast study. No hydronephrosis. No retroperitoneal lymphadenopathy. Normal caliber abdominal aorta. No pelvic free fluid. Suboptimal ev aluation for bowel pathology due to the lack of intravenous and oral contrast. However, there is no d efinite bowel wall thickening or obstruction. Normal appendix. IMPRESSION: 1. No acute traumatic process within the chest, abdomen, or pelvis. 2. Old, healed fractures within the ribs and thoracic spine are again noted. 3. Innumerable scattered lytic lesions seen throughout the visualized osseous structures consistent w ith the patient's known history of multiple myeloma. 4. Small extrapleural soft tissue nodule seen within the right posterior hemithorax anterior to the r ight lower ribs. 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 5. Additional findings as described above. ACT 112: Negative or not required by law. Electronically signed by: Keyshawn Gtz M.D. 02/29/2020 9:33 PM
--- NOTE | 2020-02-29 21:39 | CT Scan Report ---
HEAD CT NONCONTRAST CT DOSE: HISTORY: Fall. confusion TECHNIQUE: Multiaxial CT images of the head were performed without the use of intravenous contrast. A utomated exposure control was utilized for this study. A dose lowering technique was utilized adheri ng to the principles of ALARA. Comparison: None. Findings: Trace fluid level within the left maxillary sinus and left anterior ethmoid air cells. The mastoid air cells are clear. The calvarium and skull base are intact. The ventricles and sulci are wi thin normal limits. There is no mass, hematoma, midline shift, or acute infarct. Impression: No acute intracranial abnormality. ACT 112: Negative or not required by law. Electronically signed by: Keyshawn Gtz M.D. 02/29/2020 9:37 PM
--- NOTE | 2020-02-29 21:43 | CT Scan Report ---
CERVICAL SPINE CT CT DOSE: 3443.69 mGy.cm HISTORY: Fall. TECHNIQUE: Multiaxial CT images of the cervical spine were performed and reformatted in the sagittal and coronal plane without the use of contrast. A dose lowering technique was utilized adhering to th e principles of ALARA. COMPARISON: None. FINDINGS: No fractures. No subluxation. Prevertebral soft tissues and the C1-C2 interval are intact. No pneumothorax. Multiple lytic lesions consistent with the patient's known history of multiple myelo ma. Disc space narrowing at C5-C6 and C6-C7. IMPRESSION: No fractures within the cervical spine. Multiple myeloma. ACT 112: Negative or not required by law. Electronically signed by: Keyshawn Gtz M.D. 02/29/2020 9:42 PM
[2020-02-29] MEDS ORDERED: ACETAMINOPHEN 1,000 MG/100 ML VIAL IV STA (21:45)
[2020-02-29 21:55] LABS: Influenza A virus by PCR Negative (Negative); Influenza B virus by PCR Negative (Negative)
[2020-02-29 22:01] LABS: Appearance Urine Turbid (Clear); Bacteria Urine Automated Negative (Negative); Blood Urine 3+ (Negative); Color Urine Orange; Epithelial Cell Urine Auto >30 /lpf (0-5); Glucose Urine UA Trace (Negative); Ketones Urine 2+ (Negative); Leukocyte Esterase Urine 1+ (Negative); Nitrite Urine Negative (Negative); Protein Urine 3+ (Negative); Specific Gravity Urine 1.025 (1.000-1.030); Urobilinogen Urine Negative (Negative)
[2020-02-29 22:09] LABS: Bilirubin Urine Negative (Negative); Ictotest Urine Negative (Negative)
[2020-02-29 22:15] LABS: Cast Urine Automated >30 /lpf (0-5); Granular Casts Urine >30 /lpf (0)
[2020-02-29 22:16] LABS: Renal Epithelial Cells Urine 0-5 /lpf (0-5)
[2020-02-29 22:47] LABS: Creatine Kinase 15222 U/L (39-308)
[2020-03-01] MEDS ORDERED: HEPARIN 100 UNIT/ML 5ML FLUSH FLUSH PRN (00:21)
[2020-03-01] MEDS ORDERED: GLUCOSE 40% GEL 15 GM TUBE PO PRN (00:30)
[2020-03-01] MEDS ORDERED: GLUCAGON FOR INJ 1 MG VIAL SQ PRN (00:30)
[2020-03-01] MEDS ORDERED: DOCUSATE SODIUM 100 MG CAP PO PRN (00:30)
[2020-03-01] MEDS ORDERED: DEXTROSE 50% 50 ML SYRINGE IV PRN (00:30)
[2020-03-01] MEDS ORDERED: GLUCOSE 10 TABS/TUBE PO PRN (00:30)
[2020-03-01] MEDS ORDERED: VANCOMYCIN CONSULT ACTIVE PRN (00:30)
[2020-03-01] MEDS ORDERED: CARBOHYDRATES FOR HYPOGLYCEMIA PO PRN (00:30)
[2020-03-01] MEDS ORDERED: SODIUM CHLORIDE 0.9% 1000ML 1,000 ML IV ONE (00:30)
[2020-03-01] MEDS ORDERED: VANCOMYCIN HCL 1,000 MG in SODIUM CHLORIDE 0.9% 250 ML IV SCH (00:30)
[2020-03-01] MEDS ORDERED: METOPROLOL TARTRATE 1 MG/ML VIAL IV STA ×2 (01:44→21:04)
[2020-03-01] MEDS: INSULIN ASPART 100 UNITS/ML 3 ML PEN SC SCH ×5 (01:47→20:50)
[2020-03-01] MEDS: SODIUM CHLORIDE 0.9% 1000ML 1,000 ML IV SCH ×4 (02:16→19:39)
[2020-03-01] MEDS: METOPROLOL TARTRATE 50 MG TAB PO SCH ×4 (02:23→21:29)
--- NOTE | 2020-03-01 05:34 | History & Physical Report ---
Date of Service February 29, 2020 Assessment & Plan (1) Sepsis: 64yo C male found down at home, acute metabolic encephalopathy. Febrile/tachycardic/tachypneic on arrival. Found with suspected PNA. Aggressively resuscitated in the ER with improvement in clinical status. Procal elevated at 2.27 -Follow cultures -Continue IVF -Repeat chemistry, LFTs in AM Present on Admission?: Yes (2) Pneumonia: Found with RUPINDER infiltrate concerning for PNA -Follow cultures -Vancomycin -Cefepime Present on Admission?: Yes (3) Rhabdomyolysis: [place] >[address]342, prolonged down time. -Aggressive IVF - patient received 3L crystalloid IVF in ER -Bolus NSS x 1L then NSS at 250mL/hr x 2 liters -Friedman in place, closely monitor UOP -Repeat CK -Monitor renal function and electroltyes Present on Admission?: Yes (4) Atrial fibrillation with rapid ventricular response: Tachycardic on arrival -Administered Metoprolol 5mg IV x 1 with improvement in hr -Continue Metoprolol 50mg po TID Present on Admission?: Yes (5) Elevated troponin: Patietn denies CP, palpitations. No EKG evidence of ischemia. +CHLOÉ -Trend troponin -Continue ASA 81mg po daily Present on Admission?: Yes (6) Abnormal liver enzymes: Mildly elevated LFTs. Does not appear to be in acute failure. Most likely secondary to sepsis, prolonged down time and rhabdomyolysis -Repeat LFTs with AM labs. Present on Admission?: Yes (7) Multiple myeloma in remission: Patient receiving chemotherapy, last 4 weeks ago. -Check LDH and Uric acid -Monitor PPx - continue Protonix 40mg po BID, Heparin TID Code - Full Dispo - Admit to PCU Present on Admission?: Yes Admission and Anticipated Discharge Date Admission Date: February 29, 2020 History of Present Illness Chief Complaint: found down Primary Care Provider: Cleveland Kennedy, 64yo C male with history of Multiple Myeloma, AF, GERD, HTN reports mechanical fall in his living room 1 day prior to admission. He laid on the floor x 1 day, unable to get up. Denies syncope or head trauma. Unable to provide clear details. Nursing states he was covered in urine when he arrived as well as vomit. Found by neighbors who noted he did not collect his mail - they called for a well check On arrival to the ER patietn found to be markedly febrile at 41.2 rectal, tachycardic at 150bpm, HTN at 199/91, tachypneic at 35 with adequate oxygenation on room air. ER Course: NSS x 2L, LR x 1 L, Vancomycin, Cefepime, Cooling blanket Allergies Allergy/AdvReac Type Severity Reaction Status Date / Time epinephrine Allergy Intermediate STATES Verified 10/30/19 15:37 GETS A "WARNER" levofloxacin Allergy Intermediate RASH Verified 02/29/20 22:23 Sulfa (Sulfonamide Allergy Intermediate Rash Verified 02/29/20 22:24 Antibiotics) house dust Allergy Unknown Itchy Verified 02/29/20 22:24 Eye(s) Home Medications Home Medications Medication Instructions Recorded Confirmed Type Calcium 600 + D(3) 1 cap PO QAM 08/07/18 02/29/20 History acyclovir 400 mg PO BID 08/07/18 02/29/20 History aspirin 81 mg PO QAM 08/07/18 02/29/20 History cyanocobalamin (vitamin B-12) 1,000 mcg PO QAM 08/07/18 02/29/20 History [Vitamin B-12] gabapentin 300 mg PO TID 08/07/18 02/29/20 History guaifenesin [Mucinex] 600 mg PO Q12H PRN 08/07/18 02/29/20 History metoprolol tartrate 50 mg PO TID 08/07/18 02/29/20 History omega 2-oqw-sae-fish oil [Fish Oil] 2 cap PO QAM 08/07/18 02/29/20 History pantoprazole 40 mg PO BID 08/07/18 02/29/20 History ascorbic acid (vitamin C) 500 mg 500 mg PO QAM cap 02/23/19 02/29/20 History capsule dexamethasone 4 mg tablet See Rx Instructions .ROUTE 02/23/19 02/29/20 History .COMPLEX tab hydrochlorothiazide 12.5 mg PO QAM 06/08/19 02/29/20 History potassium chloride 20 meq PO QAM 06/08/19 02/29/20 History doxepin 100 mg capsule 100 mg PO HS #90 cap 02/25/20 02/29/20 Rx acetaminophen [Tylenol Extra 500 mg PO Q6H PRN 02/29/20 02/29/20 History Strength] cetirizine 10 mg PO BID PRN 02/29/20 02/29/20 History cod liver oil 1 cap PO DAILY 02/29/20 02/29/20 History docusate sodium [Colace] 100 mg PO DAILY PRN 02/29/20 02/29/20 History flaxseed oil 1 ea MISCELLANEOUS DAILY 02/29/20 02/29/20 History fluticasone propionate [Flonase] 2 spray INTRANASAL DAILY 02/29/20 02/29/20 History Past Med/Surg History Medical History Atrial fibrillation DX SUMMER 2017 - FOLLOWS W/ DR. KENNEY Constipation GERD (gastroesophageal reflux disease) HTN (hypertension) Multiple myeloma Neuropathy BL FOOT; 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 CANCER TREATMENT Seasonal allergies Surgical History History of bone marrow biopsy History of cataract surgery BL History of colonoscopy History of incision and drainage CYST - RT GROIN History of stem cell transplant History of surgery CYST REMOVED FROM COCCYX 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; 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 Family History (System 10/30/19 @ 15:37 by Maricel Arizmendi) Family/Other Family history of diabetes mellitus Social History Smoking Status: Never smoker Second Hand Exposure: No; Do You Dip or Chew Tobacco: No; Hx Alcohol Use: Yes Alcohol type: wine Hx Substance Use: No Preferred Language: Malay Communication Ability: Effective 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 Required: No Beliefs That Will Affect Care: None Current Living Situation: Alone Other Information That Helps Us Care for You: No Feels Safe at Home: Yes Safety Concerns: Feels Safe At This Time Assistive Devices: None Review of Systems Review of Systems: All systems reviewed & are unremarkable except as noted in HPI & below +nausea/vomiting x 2 episodes in ER Physical Exam Physical Exam: General: patient ill in appearance, AA&O x 4, answering questions appropriately and following commands Skin: warm, dry, +bullous lesions on forearms, dressing in place, blistering on anterior abdoment HEENT: NC/AT, PERRL, EOMI, anicteric sclera, conjunctiva without injection, +periorbital edema, external ear normal to inspection and nontender, nares patent, dry mucus membranes, dentition intact, no oropharyngeal lesions, neck supple, trachea midline, no LAD, no thyromegaly, no JVD Heart: +S1/S2, regular with ectopy, no m/r/g Lungs: equal air entry bilaterally, no rales/rhonchi/wheezes Abd: +BS, soft, NT/ND, no masses/organomegaly/ascites Ext: warm, 2+ pulses in UE/LE bilaterally, no clubbing/cyanosis or edema Neuro: nonfocal, patient AA&O x 4, speech intact, no facial droop, moving all extremities on command with equal strength 5/5 Results & Data Results & Data ([facility]) Vital Signs (Past 12 Hours) Vital Signs Temp Pulse Pulse Resp BP BP Pulse Ox 03/01/20 03:27 37.4 C 96 H 18 105/70 90 03/01/20 01:53 163 H 124/66 03/01/20 00:38 37.5 C 107 H 22 121/68 100 03/01/20 00:30 123 H 02/29/20 23:52 38.3 C H 02/29/20 23:41 111 H 17 116/72 95 02/29/20 23:31 109 H 18 149/61 H 97 02/29/20 23:23 108 H 16 132/74 97 02/29/20 23:12 110 H 16 115/76 96 02/29/20 23:01 114 H 18 159/84 H 93 02/29/20 22:54 38.7 C H 02/29/20 22:51 113 H 20 136/75 97 02/29/20 22:41 123 H 20 109/87 92 02/29/20 22:32 38.8 C H 02/29/20 22:31 19 109/77 95 02/29/20 22:30 19 95 02/29/20 22:20 119 H 16 93 02/29/20 22:11 132 H 25 H 144/85 H 96 02/29/20 22:10 111 H 21 02/29/20 22:06 39.1 C H 02/29/20 22:02 120 H 29 H 98 02/29/20 22:01 119 H 29 H 149/67 H 96 02/29/20 22:00 114 H 26 H 97 02/29/20 21:52 133 H 29 H 141/78 H 96 02/29/20 21:50 119 H 24 97 02/29/20 21:41 111 H 26 H 94/72 L 95 02/29/20 21:40 130 H 21 94 02/29/20 21:31 114 H 19 142/66 H 94 02/29/20 21:30 110 H 21 02/29/20 21:21 112 H 23 159/87 H 95 02/29/20 21:20 109 H 27 H 02/29/20 21:18 92 02/29/20 21:12 109 H 21 92 02/29/20 21:11 133 H 20 169/77 H 88 L 02/29/20 21:10 137 H 33 H 90 02/29/20 21:02 147 H 22 178/64 H 95 02/29/20 20:31 148 H 54 H 153/70 H 95 02/29/20 20:30 147 H 32 H 89 L 02/29/20 20:21 130 H 13 95 02/29/20 20:20 160 H 26 H 173/91 H 90 02/29/20 20:10 144 H 26 H 95 02/29/20 20:00 142 H 31 H 93 02/29/20 19:55 42.1 C H 02/29/20 19:50 152 H 40 H 96 02/29/20 19:40 41.2 C H 150 H 32 H 199/91 H 94 02/29/20 19:35 152 H 34 H 94 02/29/20 19:22 130 H 93 02/29/20 19:20 133 H 35 H 199/91 H 93 Laboratory Results Lab Results 02/29/20 02/29/20 02/29/20 Range/Units 19:45 19:45 19:45 WBC 6.77 (4.8-10.8) K/uL RBC 2.98 L (4.7-6.1) M/uL Hgb 10.6 L (14.0-18.0) g/dL POC Hgb (14.0-18.0) g/dl Hct 31.7 L (42-52) % POC Hct (42-52) % MCV 106.4 H (80-100) fL MCH 35.6 H (25-34) pg MCHC 33.4 (32-36) g/dL RDW Std Deviation 57.9 H (36.4-46.3) fL RDW Coeff of Elvira 15.0 H (11.5-14.5) % Plt Count 145 (130-400) K/uL MPV 10.4 (7.4-10.4) fL Immature Gran % (Auto) 3.8 % Neut % (Auto) 79.1 % Lymph % (Auto) 10.2 % [place] % (Auto) 6.5 % Eos % (Auto) 0.0 % Baso % (Auto) 0.4 % Neut # (Auto) 5.35 (1.4-6.5) K/uL Lymph # (Auto) 0.69 L (1.2-3.4) K/uL [place] # (Auto) 0.44 (0.11-0.59) K/uL Eos # (Auto) 0.00 (0-0.5) K/uL Baso # (Auto) 0.03 (0-0.2) K/uL Immature Gran # (Auto) 0.26 H (0.00-0.02) K/uL Absolute Nucleated RBC 0.06 H (0-0) K/uL Nucleated RBC % (auto) 0.9 % PT 12.3 H (9.0-12.0) Seconds INR 1.2 H (0.9-1.1) APTT 25.5 (21.0-31.0) Seconds PTT Ratio 0.9 POC Sodium (135-144) mmol/L Sodium 135 L (136-145) mmol/L POC Potassium (3.3-5.0) mmol/L Potassium 3.1 L (3.5-5.1) mmol/L POC Chloride (101-112) mmol/L Chloride 103 (98-107) mmol/L Carbon Dioxide 21 (21-32) mmol/L POC Total CO2 (24-31) mmol/L Anion Gap 11.0 (3-11) POC Anion Gap (16-25) mmol/L POC BUN (7-18) mg/dl BUN 21 H (7-18) mg/dl Creatinine 2.41 H (0.6-1.4) mg/dl POC Creatinine (0.6-1.3) mg/dl Est Cr Clr Drug Dosing Not Reportable Est GFR ( Amer) 32.1 Est GFR (Non-Af Amer) 27.7 BUN/Creatinine Ratio 8.7 L (10-20) Glucose 201 H (70-99) mg/dl POC Glucose (70-99) mg/dl POC Glucose (other) (70-99) mg/dl Lactate (0.4-2.0) mmol/L Calcium 8.9 (8.5-10.1) mg/dl POC Ioniz Calcium Terrell (1.12-1.32) mmol/l Magnesium 2.4 (1.8-2.4) mg/dl Total Bilirubin 1.9 H (0.2-1) mg/dl AST 374 H (15-37) U/L ALT 85 H (12-78) U/L Alkaline Phosphatase 65 (45-117) U/L Total Creatine Kinase 58202 H (39-308) U/L Troponin I 0.885 H* (0-0.045) ng/ml Total Protein 9.2 H (6.4-8.2) gm/dl Albumin 2.9 L (3.4-5.0) gm/dl Globulin 6.3 H (2.5-4.0) gm/dl Albumin/Globulin Ratio 0.5 L (0.9-2) Procalcitonin (0-0.5) ng/ml Urine Color Urine Appearance (Clear) Urine pH (4.5-7.5) Ur Specific [place] (1.000-1.030) Urine Protein (Negative) Urine Glucose (UA) (Negative) Urine Ketones (Negative) Urine Blood (Negative) Urine Nitrite (Negative) Urine Bilirubin (Negative) Urine Urobilinogen (Negative) Ur Leukocyte Esterase (Negative) Urine WBC (Auto) (0-5) /hpf Urine RBC (Auto) (0-4) /hpf U Hyaline Cast (Auto) (0-5) /lpf U Epithel Cells (Auto) (0-5) /lpf Urine Bacteria (Auto) (Negative) Ur Renal Epithelial Cell (0-5) /lpf Granular Casts (0) /lpf COVID-19 Eval Order COVID-19 PCR (Negative) Influ A Molecular Assay (Negative) Influ B Molecular Assay (Negative) 02/29/20 02/29/20 02/29/20 Range/Units 19:45 19:54 20:01 WBC (4.8-10.8) K/uL RBC (4.7-6.1) M/uL Hgb (14.0-18.0) g/dL POC Hgb 11.2 L (14.0-18.0) g/dl Hct (42-52) % POC Hct 33 L (42-52) % MCV (80-100) fL MCH (25-34) pg MCHC (32-36) g/dL RDW Std Deviation (36.4-46.3) fL RDW Coeff of Elvira (11.5-14.5) % Plt Count (130-400) K/uL MPV (7.4-10.4) fL Immature Gran % (Auto) % Neut % (Auto) % Lymph % (Auto) % [place] % (Auto) % Eos % (Auto) % Baso % (Auto) % Neut # (Auto) (1.4-6.5) K/uL Lymph # (Auto) (1.2-3.4) K/uL [place] # (Auto) (0.11-0.59) K/uL Eos # (Auto) (0-0.5) K/uL Baso # (Auto) (0-0.2) K/uL Immature Gran # (Auto) (0.00-0.02) K/uL Absolute Nucleated RBC (0-0) K/uL Nucleated RBC % (auto) % PT (9.0-12.0) Seconds INR (0.9-1.1) APTT (21.0-31.0) Seconds PTT Ratio POC Sodium 137 (135-144) mmol/L Sodium (136-145) mmol/L POC Potassium 3.1 L (3.3-5.0) mmol/L Potassium (3.5-5.1) mmol/L POC Chloride 103 (101-112) mmol/L Chloride (98-107) mmol/L Carbon Dioxide (21-32) mmol/L POC Total CO2 18 L (24-31) mmol/L Anion Gap (3-11) POC Anion Gap 21.0 (16-25) mmol/L POC BUN 21 H (7-18) mg/dl BUN (7-18) mg/dl Creatinine (0.6-1.4) mg/dl POC Creatinine 2.2 H (0.6-1.3) mg/dl Est Cr Clr Drug Dosing Est GFR ( Amer) Est GFR (Non-Af Amer) BUN/Creatinine Ratio (10-20) Glucose (70-99) mg/dl POC Glucose (70-99) mg/dl POC Glucose (other) 200 H (70-99) mg/dl Lactate 3.6 H* (0.4-2.0) mmol/L Calcium (8.5-10.1) mg/dl POC Ioniz Calcium Terrell 1.08 L (1.12-1.32) mmol/l Magnesium (1.8-2.4) mg/dl Total Bilirubin (0.2-1) mg/dl AST (15-37) U/L ALT (12-78) U/L Alkaline Phosphatase (45-117) U/L Total Creatine Kinase (39-308) U/L Troponin I (0-0.045) ng/ml Total Protein (6.4-8.2) gm/dl Albumin (3.4-5.0) gm/dl Globulin (2.5-4.0) gm/dl Albumin/Globulin Ratio (0.9-2) Procalcitonin 2.27 H (0-0.5) ng/ml Urine Color Urine Appearance (Clear) Urine pH (4.5-7.5) Ur Specific [place] (1.000-1.030) Urine Protein (Negative) Urine Glucose (UA) (Negative) Urine Ketones (Negative) Urine Blood (Negative) Urine Nitrite (Negative) Urine Bilirubin (Negative) Urine Urobilinogen (Negative) Ur Leukocyte Esterase (Negative) Urine WBC (Auto) (0-5) /hpf Urine RBC (Auto) (0-4) /hpf U Hyaline Cast (Auto) (0-5) /lpf U Epithel Cells (Auto) (0-5) /lpf Urine Bacteria (Auto) (Negative) Ur Renal Epithelial Cell (0-5) /lpf Granular Casts (0) /lpf COVID-19 Eval Order COVID-19 PCR (Negative) Influ A Molecular Assay (Negative) Influ B Molecular Assay (Negative) 02/29/20 02/29/20 02/29/20 Range/Units 20:22 20:22 20:22 WBC (4.8-10.8) K/uL RBC (4.7-6.1) M/uL Hgb (14.0-18.0) g/dL POC Hgb (14.0-18.0) g/dl Hct (42-52) % POC Hct (42-52) % MCV (80-100) fL MCH (25-34) pg MCHC (32-36) g/dL RDW Std Deviation (36.4-46.3) fL RDW Coeff of Elvira (11.5-14.5) % Plt Count (130-400) K/uL MPV (7.4-10.4) fL Immature Gran % (Auto) % Neut % (Auto) % Lymph % (Auto) % [place] % (Auto) % Eos % (Auto) % Baso % (Auto) % Neut # (Auto) (1.4-6.5) K/uL Lymph # (Auto) (1.2-3.4) K/uL [place] # (Auto) (0.11-0.59) K/uL Eos # (Auto) (0-0.5) K/uL Baso # (Auto) (0-0.2) K/uL Immature Gran # (Auto) (0.00-0.02) K/uL Absolute Nucleated RBC (0-0) K/uL Nucleated RBC % (auto) % PT (9.0-12.0) Seconds INR (0.9-1.1) APTT (21.0-31.0) Seconds PTT Ratio POC Sodium (135-144) mmol/L Sodium (136-145) mmol/L POC Potassium (3.3-5.0) mmol/L Potassium (3.5-5.1) mmol/L POC Chloride (101-112) mmol/L Chloride (98-107) mmol/L Carbon Dioxide (21-32) mmol/L POC Total CO2 (24-31) mmol/L Anion Gap (3-11) POC Anion Gap (16-25) mmol/L POC BUN (7-18) mg/dl BUN (7-18) mg/dl Creatinine (0.6-1.4) mg/dl POC Creatinine (0.6-1.3) mg/dl Est Cr Clr Drug Dosing Est GFR ( Amer) Est GFR (Non-Af Amer) BUN/Creatinine Ratio (10-20) Glucose (70-99) mg/dl POC Glucose (70-99) mg/dl POC Glucose (other) (70-99) mg/dl Lactate (0.4-2.0) mmol/L Calcium (8.5-10.1) mg/dl POC Ioniz Calcium Terrell (1.12-1.32) mmol/l Magnesium (1.8-2.4) mg/dl Total Bilirubin (0.2-1) mg/dl AST (15-37) U/L ALT (12-78) U/L Alkaline Phosphatase (45-117) U/L Total Creatine Kinase (39-308) U/L Troponin I (0-0.045) ng/ml Total Protein (6.4-8.2) gm/dl Albumin (3.4-5.0) gm/dl Globulin (2.5-4.0) gm/dl Albumin/Globulin Ratio (0.9-2) Procalcitonin (0-0.5) ng/ml Urine Color Urine Appearance (Clear) Urine pH (4.5-7.5) Ur Specific [place] (1.000-1.030) Urine Protein (Negative) Urine Glucose (UA) (Negative) Urine Ketones (Negative) Urine Blood (Negative) Urine Nitrite (Negative) Urine Bilirubin (Negative) Urine Urobilinogen (Negative) Ur Leukocyte Esterase (Negative) Urine WBC (Auto) (0-5) /hpf Urine RBC (Auto) (0-4) /hpf U Hyaline Cast (Auto) (0-5) /lpf U Epithel Cells (Auto) (0-5) /lpf Urine Bacteria (Auto) (Negative) Ur Renal Epithelial Cell (0-5) /lpf Granular Casts (0) /lpf COVID-19 Eval Order Covid19 Done at [facility] COVID-19 PCR NEGATIVE (Negative) Influ A Molecular Assay Negative (Negative) Influ B Molecular Assay Negative (Negative) 02/29/20 02/29/20 03/01/20 Range/Units 21:48 21:48 01:20 WBC (4.8-10.8) K/uL RBC (4.7-6.1) M/uL Hgb (14.0-18.0) g/dL POC Hgb (14.0-18.0) g/dl Hct (42-52) % POC Hct (42-52) % MCV (80-100) fL MCH (25-34) pg MCHC (32-36) g/dL RDW Std Deviation (36.4-46.3) fL RDW Coeff of Elvira (11.5-14.5) % Plt Count (130-400) K/uL MPV (7.4-10.4) fL Immature Gran % (Auto) % Neut % (Auto) % Lymph % (Auto) % [place] % (Auto) % Eos % (Auto) % Baso % (Auto) % Neut # (Auto) (1.4-6.5) K/uL Lymph # (Auto) (1.2-3.4) K/uL [place] # (Auto) (0.11-0.59) K/uL Eos # (Auto) (0-0.5) K/uL Baso # (Auto) (0-0.2) K/uL Immature Gran # (Auto) (0.00-0.02) K/uL Absolute Nucleated RBC (0-0) K/uL Nucleated RBC % (auto) % PT (9.0-12.0) Seconds INR (0.9-1.1) APTT (21.0-31.0) Seconds PTT Ratio POC Sodium (135-144) mmol/L Sodium (136-145) mmol/L POC Potassium (3.3-5.0) mmol/L Potassium (3.5-5.1) mmol/L POC Chloride (101-112) mmol/L Chloride (98-107) mmol/L Carbon Dioxide (21-32) mmol/L POC Total CO2 (24-31) mmol/L Anion Gap (3-11) POC Anion Gap (16-25) mmol/L POC BUN (7-18) mg/dl BUN (7-18) mg/dl Creatinine (0.6-1.4) mg/dl POC Creatinine (0.6-1.3) mg/dl Est Cr Clr Drug Dosing Est GFR ( Amer) Est GFR (Non-Af Amer) BUN/Creatinine Ratio (10-20) Glucose (70-99) mg/dl POC Glucose 147 H (70-99) mg/dl POC Glucose (other) (70-99) mg/dl Lactate 1.9 (0.4-2.0) mmol/L Calcium (8.5-10.1) mg/dl POC Ioniz Calcium Terrell (1.12-1.32) mmol/l Magnesium (1.8-2.4) mg/dl Total Bilirubin (0.2-1) mg/dl AST (15-37) U/L ALT (12-78) U/L Alkaline Phosphatase (45-117) U/L Total Creatine Kinase (39-308) U/L Troponin I (0-0.045) ng/ml Total Protein (6.4-8.2) gm/dl Albumin (3.4-5.0) gm/dl Globulin (2.5-4.0) gm/dl Albumin/Globulin Ratio (0.9-2) Procalcitonin (0-0.5) ng/ml Urine Color Jensen Urine Appearance Turbid A (Clear) Urine pH 5.0 (4.5-7.5) Ur Specific [place] 1.025 (1.000-1.030) Urine Protein 3+ H (Negative) Urine Glucose (UA) Trace H (Negative) Urine Ketones 2+ H (Negative) Urine Blood 3+ H (Negative) Urine Nitrite Negative (Negative) Urine Bilirubin Negative (Negative) Urine Urobilinogen Negative (Negative) Ur Leukocyte Esterase 1+ H (Negative) Urine WBC (Auto) 10-30 H (0-5) /hpf Urine RBC (Auto) 10-30 H (0-4) /hpf U Hyaline Cast (Auto) >30 H (0-5) /lpf U Epithel Cells (Auto) >30 H (0-5) /lpf Urine Bacteria (Auto) Negative (Negative) Ur Renal Epithelial Cell 0-5 (0-5) /lpf Granular Casts >30 H (0) /lpf COVID-19 Eval Order COVID-19 PCR (Negative) Influ A Molecular Assay (Negative) Influ B Molecular Assay (Negative) Diagnostic Findings HEAD CT NONCONTRAST CT DOSE: HISTORY: Fall. confusion TECHNIQUE: Multiaxial CT images of the head were performed without the use of intravenous contrast. Automated exposure control was utilized for this study. A dose lowering technique was utilized adhering to the principles of ALARA. Comparison: None. Findings: Trace fluid level within the left maxillary sinus and left anterior ethmoid air cells. The mastoid air cells are clear. The calvarium and skull base are intact. The ventricles and sulci are within normal limits. There is no mass, hematoma, midline shift, or acute infarct. Impression: No acute intracranial abnormality. ACT 112: Negative or not required by law. Electronically signed by: Keyshawn Gtz M.D. 02/29/2020 9:37 PM Dictated: 02/29/202133 CT chest wo con, CT abd pelvis wo con CT DOSE: HISTORY: Fall. Trauma. Possible fracture. TECHNIQUE: Multiaxial CT images of the chest, abdomen, pelvis were performed without contrast. A dose lowering technique was utilized adhering to the principles of ALARA. COMPARISON: Chest CT 11/06/2017. Abdomen and pelvis CT 11/03/2017. FINDINGS: Chest CT: No change in the multiple chronic [id number] compression deformities seen throughout the majority thoracic spine. This most pronounced at T12. No associated retropulsion. There are again noted innumerable small lytic lesions seen scattered throughout the visualized osseous structures consistent with the patient's history of multiple myeloma. A few old bilateral rib fractures. No acute fractures identified within the chest. A left subclavian Port-A-Cath terminates at the proximal SVC. No pneumothorax. The central airways are patent. Mild respiratory motion artifact. Patchy area of consolidation involving the left upper lobe. This likely represents a pneumonia. No mediastinal or hilar lymphadenopathy. Normal caliber thoracic aorta. The heart is normal in size. No pleural or pericardial effusions. Abdomen/pelvis CT: No pneumoperitoneum. No pneumatosis. Innumerable lytic lesions seen scattered throughout the visualized osseous structures consistent with patient's history of multiple myeloma. No acute fractures within the visua lized osseous structures. Small fat-containing umbilical hernia. Small fat- containing left inguinal hernia. The bladder is decompressed by a Friedman catheter. There are small extrapleural soft tissue nodules seen within the right posterior hemithorax anterior to the right lower ribs. The largest on image 53 measures 2.2 x 0.9 cm. These are new compared to the prior study could represent small plasmacytomas mild hepatic steatosis. The unenhanced gallbladder, pancreas, spleen, adrenal glands, and left kidney are within normal limits. There is a 1 cm hypodense lesion within the right kidney. This is incompletely characterized on this noncontrast study. No hydronephrosis. No retroperitoneal lymphadenopathy. Normal caliber abdominal aorta. No pelvic free fluid. Suboptimal evaluation for bowel pathology due to the lack of intravenous and oral contrast. However, there is no definite bowel wall thickening or obstruction. Normal appendix. IMPRESSION: 1. No acute traumatic process within the chest, abdomen, or pelvis. 2. Old, healed fractures within the ribs and thoracic spine are again noted. 3. Innumerable scattered lytic lesions seen throughout the visualized osseous structures consistent with the patient's known history of multiple myeloma. 4. Small extrapleural soft tissue nodule seen within the right posterior hemithorax anterior to the right lower ribs. 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 5. Additional findings as described above. ACT 112: Negative or not required by law. Electronically signed by: Keyshawn Gtz M.D. 02/29/2020 9:33 PM Dictated: 02/29/202117 Transcribed: 02/29/202117 CT chest wo con, CT abd pelvis wo con CT DOSE: HISTORY: Fall. Trauma. Possible fracture. TECHNIQUE: Multiaxial CT images of the chest, abdomen, pelvis were performed without contrast. A dose lowering technique was utilized adhering to the principles of ALARA. COMPARISON: Chest CT 11/06/2017. Abdomen and pelvis CT 11/03/2017. FINDINGS: Chest CT: No change in the multiple chronic [id number] compression deformities seen throughout the majority thoracic spine. This most pronounced at T12. No associated retropulsion. There are again noted innumerable small lytic lesions seen scattered throughout the visualized osseous structures consistent with the patient's history of multiple myeloma. A few old bilateral rib fractures. No acute fractures identified within the chest. A left subclavian Port-A-Cath terminates at the proximal SVC. No pneumothorax. The central airways are patent. Mild respiratory motion artifact. Patchy area of consolidation involving the left upper lobe. This likely represents a pneumonia. No mediastinal or hilar lymphadenopathy. Normal caliber thoracic aorta. The heart is normal in size. No pleural or pericardial effusions. Abdomen/pelvis CT: No pneumoperitoneum. No pneumatosis. Innumerable lytic lesions seen scattered throughout the visualized osseous structures consistent with patient's history of multiple myeloma. No acute fractures within the visualized osseous structures. Small fat-containing umbilical hernia. Small fat- containing left inguinal hernia. The bladder is decompressed by a Friedman catheter. There are small extrapleural soft tissue nodules seen within the right posterior hemithorax anterior to the right lower ribs. The largest on image 53 measures 2.2 x 0.9 cm. These are new compared to the prior study could represent small plasmacytomas mild hepatic steatosis. The unenhanced gallbladder, pancreas, spleen, adrenal glands, and left kidney are within normal limits. Ther e is a 1 cm hypodense lesion within the right kidney. This is incompletely characterized on this noncontrast study. No hydronephrosis. No retroperitoneal lymphadenopathy. Normal caliber abdominal aorta. No pelvic free fluid. Suboptimal evaluation for bowel pathology due to the lack of intravenous and oral contrast. However, there is no definite bowel wall thickening or obstruction. Normal appendix. IMPRESSION: 1. No acute traumatic process within the chest, abdomen, or pelvis. 2. Old, healed fractures within the ribs and thoracic spine are again noted. 3. Innumerable scattered lytic lesions seen throughout the visualized osseous structures consistent with the patient's known history of multiple myeloma. 4. Small extrapleural soft tissue nodule seen within the right posterior hemithorax anterior to the right lower ribs. 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 5. Additional findings as described above. ACT 112: Negative or not required by law. Electronically signed by: Keyshawn Gtz M.D. 02/29/2020 9:33 PM Dictated: 02/29/202117 Transcribed: 02/29/202117 Code Status & VTE Plan Code Status Full VTE Prophylaxis Plan VTE Prophylaxis will be ordered: Yes PG Care Time/CCT Total # of Minutes Spent Total Time Spent with Patient: Total time spent is greater than 50% in coordination of care (as documented) at patient's floor/unit and/or counseling patient: Coding Level of Care Code 74799 Initial Inpt Care Lvl 3 Diagnoses Sepsis A41.9; R65.20; G93.40 Sepsis acute organ dysfunction status: with acute organ dysfunction Sepsis type: sepsis due to unspecified organism Severe sepsis acute organ dysfunction type: encephalopathy Severe sepsis shock status: without septic shock Pneumonia J18.9 Pneumonia type: due to unspecified organism Rhabdomyolysis M62.82 Rhabdomyolysis type: non-traumatic Atrial fibrillation with rapid ventricular response I48.91 Elevated troponin R77.8 Abnormal liver enzymes R74.8 Multiple myeloma in remission C90.01 (1) Sepsis Sepsis acute organ dysfunction status: with acute organ dysfunction Sepsis type: sepsis due to unspecified organism Severe sepsis acute organ dysfunction type: encephalopathy Severe sepsis shock status: without septic shock Qualified Code(s): A41.9 - Sepsis, unspecified organism; R65.20 - Severe sepsis without septic shock; G93.40 - Encephalopathy, unspecified (2) Rhabdomyolysis Rhabdomyolysis type: non-traumatic Qualified Code(s): M62.82 - Rhabdomyolysis (3) Pneumonia Pneumonia type: due to unspecified organism
[2020-03-01] MEDS: HEPARIN SOD 5,000 UNIT/0.5 ML VIAL SQ SCH ×3 (06:15→21:23)
[2020-03-01] MEDS ORDERED: CEFEPIME 2,000 MG in SYRINGE 0 ML IV SCH (08:00)
[2020-03-01 08:30] LABS: Hematocrit (blood only) 25.7 % (42-52); Hemoglobin 8.3 g/dL (14.0-18.0); Mean Corpuscular Hemoglobin 34.6 pg (25-34); Mean Corpuscular Hgb Conc 32.3 g/dL (32-36); Mean Corpuscular Volume 107.1 fL (80-100); Nucleated RBC # (auto) 0.02 K/uL (0-0); Nucleated RBC % (auto) 0.6 %; RDW Standard Deviation 58.6 fL (36.4-46.3); White Blood Count 2.85 K/uL (4.8-10.8)
[2020-03-01] MEDS: ACYCLOVIR 400 MG TAB PO SCH ×2 (08:36→21:27)
[2020-03-01] MEDS: ASPIRIN 81 MG ECTAB PO SCH (08:37)
[2020-03-01] MEDS: PANTOprazole 40 MG TAB PO SCH ×2 (08:37→21:27)
[2020-03-01] MEDS: GABAPENTIN 100 MG CAP PO SCH ×3 (08:37→21:26)
[2020-03-01] MEDS: CYANOCOBALAMIN 500 MCG TABLET (VITAMIN B-12) PO SCH (08:37)
[2020-03-01] MEDS: FLUTICASONE PROPIONATE NA SPR 16 GM BTL SCH (08:38)
[2020-03-01 08:54] LABS: Mean Platelet Volume 9.9 fL (7.4-10.4); Platelet Count 97 K/uL (130-400)
[2020-03-01 08:55] LABS: Basophils # (auto) 0.01 K/uL (0-0.2); Basophils % (auto) 0.4 %; Immature Granulocytes # (auto) 0.05 K/uL (0.00-0.02); Immature Granulocytes % (auto) 1.8 %; Lymphocytes # (auto) 0.34 K/uL (1.2-3.4); Lymphocytes % (auto) 11.9 %; Monocytes # (auto) 0.05 K/uL (0.11-0.59); Monocytes % (auto) 1.8 %; Neutrophils % (auto) 84.1 %; Platelet Estimate Decreased (Normal)
[2020-03-01 08:59] LABS: Albumin Level 1.9 gm/dl (3.4-5.0); BUN Creatinine Ratio 10.3 (10-20); Bilirubin Direct 0.5 mg/dl (0-0.2); Calcium 6.6 mg/dl (8.5-10.1); Creatinine Clr Calc Pharmacy 54.4 ml/min; Est GFR (African American) 50.8; Est GFR (Non-African American) 43.8; Potassium 3.1 mmol/L (3.5-5.1); Uric Acid 4.7 mg/dl (2.6-7.2)
[2020-03-01 09:13] LABS: Estimated Average Glucose 137 mg/dl; Hemoglobin A1C 6.4 % (4.5-5.6)
[2020-03-01 09:19] LABS: Bilirubin,Total 1.1 mg/dl (0.2-1); Phosphorus 2.1 mg/dl (2.5-4.9); Total Protein 6.7 gm/dl (6.4-8.2); Troponin I 1.16 ng/ml (0-0.045)
--- NOTE | 2020-03-01 09:23 | Pharmacy Report ---
Pharmacy Abx Initial Consult - Date of Service March 01, 2020 - Pharmacy Dosing Scope Date of Consult: 02/29/20 Consultation requested by: Dr. Mary Guillermo Pharmacy is consulted to initiate vancomycin IV dosing therapy, order appropriate labs and adjust drug dose/frequency. - Subjective The patient is a 64 year old M admitted on 02/29/20 23:14. - Objective Height: 5 ft 9 in Weight: 101.1 kg Vital Signs (Past 12hrs): Vital Signs Temp Pulse Pulse Resp BP BP Pulse Ox 03/01/20 07:30 36.9 C 76 18 147/61 H 94 03/01/20 03:27 37.4 C 96 H 18 105/70 90 03/01/20 01:53 163 H 124/66 03/01/20 00:38 37.5 C 107 H 22 121/68 100 03/01/20 00:30 123 H 02/29/20 23:52 38.3 C H 02/29/20 23:41 111 H 17 116/72 95 02/29/20 23:31 109 H 18 149/61 H 97 02/29/20 23:23 108 H 16 132/74 97 02/29/20 23:12 110 H 16 115/76 96 02/29/20 23:01 114 H 18 159/84 H 93 02/29/20 22:54 38.7 C H 02/29/20 22:51 113 H 20 136/75 97 02/29/20 22:41 123 H 20 109/87 92 02/29/20 22:32 38.8 C H 02/29/20 22:31 19 109/77 95 02/29/20 22:30 19 95 02/29/20 22:20 119 H 16 93 02/29/20 22:11 132 H 25 H 144/85 H 96 02/29/20 22:10 111 H 21 02/29/20 22:06 39.1 C H 02/29/20 22:02 120 H 29 H 98 02/29/20 22:01 119 H 29 H 149/67 H 96 02/29/20 22:00 114 H 26 H 97 02/29/20 21:52 133 H 29 H 141/78 H 96 02/29/20 21:50 119 H 24 97 02/29/20 21:41 111 H 26 H 94/72 L 95 02/29/20 21:40 130 H 21 94 02/29/20 21:31 114 H 19 142/66 H 94 02/29/20 21:30 110 H 21 02/29/20 21:21 112 H 23 159/87 H 95 Lab Results (24hrs): Laboratory Tests (24 Hours) 03/01/20 03/01/20 03/01/20 07:58 07:58 07:58 WBC 2.85 L Neut # (Auto) 2.40 Creatinine 1.65 H D Est Cr Clr Drug Dosing 54.4 Total Creatine Kinase Procalcitonin Random Vancomycin 18.8 02/29/20 02/29/20 02/29/20 19:45 19:45 19:45 WBC 6.77 Neut # (Auto) 5.35 Creatinine 2.41 H Est Cr Clr Drug Dosing Not Reportable Total Creatine Kinase 57977 H Procalcitonin 2.27 H Random Vancomycin Micro Results: 02/29/20 21:48 Urine Culture - Pending Urine,Straight Cath 02/29/20 20:30 Aerobic Blood Culture - Pending Blood Anaerobic Blood Culture - Pending 02/29/20 20:01 Aerobic Blood Culture - Pending Blood Anaerobic Blood Culture - Pending - Risk Factors for Resistance N/A - Assessment & Plan Assessment 64 year old M initiated on IV Vancomycin + Cefepime + Acyclovir for RUPINDER infiltrate/ suspected PNA Scr improved with aggressive hydration 2.41 --> 1.65 mg/dl overnight. Scr at/around baseline Blood and urine cultures are pending Ordered a nasal MRSA swab per protocol to assist with de-escalation. Plan Vancomycin IV * Loading dose: 2000 mg (20 mg/kg) * Maintenance dose: 1000 mg IV (10 mg/kg) every 12 hours * Goal trough level for PNA/Sepsis : 15 to 20 mcg/mL * Trough level ordered for 03/03/20 @ 1000 (with the 5th maintenance dose) Pharmacy will continue to follow and will adjust dose/frequency as necessary. Thank you.
[2020-03-01] MEDS ORDERED: PIPERACILL/TAZOBAC CONSULT ACTIVE PRN (09:30)
[2020-03-01] MEDS ORDERED: PIPERACILLIN/TAZOBACTAM 4.5 GM in DEXTROSE 5% 100 ML IV ONE (10:00)
--- NOTE | 2020-03-01 11:19 | Hospitalist Progress Note ---
Date of Service March 01, 2020 Assessment & Plan (1) CHLOÉ (acute kidney injury): (2) Sepsis: 64yo C male found down at home x24 hours, with acute metabolic encephalopathy, lactic acidosis. Febrile/tachycardic/tachypneic on arrival. Found with RUPINDER PNA on chest x-ray. Procal elevated at 2.27. Flu negative, Covid negative MRSA swab negative Immunocompromised with port in place -Blood pressures remain acceptable -Continue IV fluid resuscitation as below for rhabdomyolysis -Change cefepime to Zosyn for anaerobic coverage in case of aspiration pneumonia and continue vancomycin -Follow blood cultures -Tylenol as needed for fevers (3) Pneumonia: Found with RUPINDER infiltrate concerning for PNA -Follow cultures Continue antibiotics as above Follow chest x-ray to resolution (4) Rhabdomyolysis: [place] >22132, prolonged down time. CK increased on repeat today to 24,000 -Continue aggressive IVF - patient received 3L crystalloid IVF in ER and another 3 L since admission -Decrease IV fluids to 150 mL's per hour of normal saline -Friedman in place, closely monitor UOP -Follow serial CK -Monitor renal function which is now improving and electrolytes and replace as needed (5) Acute respiratory failure with hypoxia: Requiring 2 L nasal cannula to keep pulse ox greater than 88% Secondary to pneumonia and sepsis Wean off oxygen as able to (6) Atrial fibrillation with rapid ventricular response: Tachycardic on arrival into the 170s -Administered Metoprolol 5mg IV x 1 with improvement Has spontaneously converted to sinus rhythm with mild sinus tachycardia at times -Continue Metoprolol 50mg po TID and consider titration upward as needed -Appreciate cardiology consultation-recommends against anticoagulation at this time given brief period of atrial fibrillation and higher risk given multiple myeloma, anemia and thrombocytopenia (7) Elevated troponin: Patient denies CP, palpitations. No EKG evidence of ischemia. With acute kidney injury and rhabdomyolysis as well as rapid atrial fibrillation all contributing to myocardial demand ischemia. Did not present with acute coronary syndrome -Troponin peaked today at 1.1 and back down again. Appreciate cardiology consultation Echocardiogram without wall motion abnormalities and with preserved EF -Continue ASA 81mg po daily and metoprolol (8) Abnormal liver enzymes: Elevated LFTs most likely secondary to sepsis, prolonged down time and rhabdomyolysis CT abdomen/pelvis with mild hepatic steatosis, normal gallbladder and pancreas. -Repeat LFTs in the morning (9) Multiple myeloma in remission: Patient receiving chemotherapy, last 4 weeks ago. -LDH is quite elevated at 1000 and Uric acid normal Continue acyclovir Follow CBC With multiple lytic bone lesions diffusely on imaging (10) Hypokalemia: Replace with IV potassium Follow BMP and magnesium (11) Hypophosphatemia: Severely low Replace with IV potassium phosphorus and repeat levels later this evening and in the morning (12) CKD (chronic kidney disease): Baseline creatinine is around 1.4-1.7 With CHLOÉ upon admission which is now improved back to baseline -Avoid nephrotoxins -renally dose meds when appropriate -follow BMP (13) HTN (hypertension): Blood pressures are stable -Holding home HCTZ Continue metoprolol (14) GERD (gastroesophageal reflux disease): Continue PPI (15) Fall: Likely secondary to weakness from pneumonia and sepsis CT of the cervical spine, head CT, chest/abdomen/pelvis CT without fractures or acute findings other than PNA (16) Pancytopenia: Secondary to multiple myeloma and chemotherapy Transfuse as needed Follow CBC in the morning (17) Prediabetes: Hemoglobin A1c elevated at 6.4% Follow Accu-Cheks NovoLog sliding scale insulin (18) Neuropathy: Continue home gabapentin, doxepin Thought to be secondary to chemotherapy (19) DVT prophylaxis: Heparin SQ Disposition-continued stay on PCU Full code Discussed his care with his sister on the phone as per patient's request Admission and Anticipated Discharge Date Admission Date: February 29, 2020 Subjective Patient feeling very tired and a little short of breath. He recalls falling in his house but does not remember much since then. He does not remember vomiting but reports were that he was found in vomit. He denies chest pain or cough. Denies nausea or abdominal pain. Denies any joint pains anywhere. He converted from rapid atrial fibrillation to sinus rhythm after couple of hours. Has had some sinus tachycardia since then. Review of Systems Review of Systems: All systems reviewed & are unremarkable except as noted in HPI & below Physical Exam Constitutional: WD/WN, vitals as above Eyes: + anicteric sclerae and EOM intact bilaterally ENMT: external ear and nose normal, oropharynx normal Neck: trachea midline, no thyromegaly Respiratory: Auscultation: + diminished lung sounds (Throughout); no crackles and no wheezes Cardiovascular: Rate/Rhythm: regular rhythm and + tachycardic Heart Sounds: no murmur Extremities: no edema Chest (Breasts): Chest: normal inspection of chest Gastrointestinal (Abdomen): normal bowel sounds, soft, nontender, no hepatosplenomegaly Musculoskeletal: Extremities: extremities normal to inspection; no cyanosis and no clubbing Skin: + lesion (Multiple clear fluid-filled blisters on left arm and hand as well as across the abdomen) Trauma: + evidence of skin trauma (A horizontal linear area of ecchymosis and with some blisters across the mid abdomen, some mottling of lower extremities) Neurologic: moves all extremities and awake; no focal motor deficits Psychiatric: Orientation: alert and oriented x 3 Eye Contact: + fair eye contact Affect: + flat affect Genitourinary: Friedman catheter in place with clear yellow urine Lymphatic: no lymphedema Results & Data Results & Data ([facility]) Vital Signs (Past 12 Hours) Vital Signs Temp Pulse Pulse Resp BP BP Pulse Ox 03/01/20 07:30 36.9 C 76 18 147/61 H 94 03/01/20 03:27 37.4 C 96 H 18 105/70 90 03/01/20 01:53 163 H 124/66 03/01/20 00:38 37.5 C 107 H 22 121/68 100 03/01/20 00:30 123 H 02/29/20 23:52 38.3 C H 02/29/20 23:41 111 H 17 116/72 95 02/29/20 23:31 109 H 18 149/61 H 97 02/29/20 23:23 108 H 16 132/74 97 Laboratory Results 03/01/20 03/01/20 03/01/20 Range/Units Unknown 16:17 12:35 WBC (4.8-10.8) K/uL RBC (4.7-6.1) M/uL Hgb (14.0-18.0) g/dL POC Hgb (14.0-18.0) g/dl Hct (42-52) % POC Hct (42-52) % MCV (80-100) fL MCH (25-34) pg MCHC (32-36) g/dL RDW Std Deviation (36.4-46.3) fL RDW Coeff of Elvira (11.5-14.5) % Plt Count (130-400) K/uL MPV (7.4-10.4) fL Immature Gran % (Auto) % Neut % (Auto) % Lymph % (Auto) % Morgan % (Auto) % Eos % (Auto) % Baso % (Auto) % Neut # (Auto) (1.4-6.5) K/uL Lymph # (Auto) (1.2-3.4) K/uL Morgan # (Auto) (0.11-0.59) K/uL Eos # (Auto) (0-0.5) K/uL Baso # (Auto) (0-0.2) K/uL Immature Gran # (Auto) (0.00-0.02) K/uL Absolute Nucleated RBC (0-0) K/uL Nucleated RBC % (auto) % Platelet Estimate (Normal) PT (9.0-12.0) Seconds INR (0.9-1.1) APTT (21.0-31.0) Seconds PTT Ratio POC Sodium (135-144) mmol/L Sodium 141 (136-145) mmol/L POC Potassium (3.3-5.0) mmol/L Potassium 3.0 L (3.5-5.1) mmol/L POC Chloride (101-112) mmol/L Chloride 114 H (98-107) mmol/L Carbon Dioxide 23 (21-32) mmol/L POC Total CO2 (24-31) mmol/L Anion Gap 4.0 (3-11) POC Anion Gap (16-25) mmol/L POC BUN (7-18) mg/dl BUN 15 (7-18) mg/dl Creatinine 1.70 H (0.6-1.4) mg/dl POC Creatinine (0.6-1.3) mg/dl Est Cr Clr Drug Dosing 52.8 Est GFR ( Amer) 49.0 Est GFR (Non-Af Amer) 42.3 BUN/Creatinine Ratio 8.9 L (10-20) Glucose 106 H (70-99) mg/dl POC Glucose 120 H (70-99) mg/dl POC Glucose (other) (70-99) mg/dl Estimat Average Glucose mg/dl Hemoglobin A1c (4.5-5.6) % Lactate (0.4-2.0) mmol/L Uric Acid (2.6-7.2) mg/dl Calcium 6.8 L (8.5-10.1) mg/dl POC Ioniz Calcium Terrell (1.12-1.32) mmol/l Phosphorus 0.9 L* D (2.5-4.9) mg/dl Magnesium 2.0 (1.8-2.4) mg/dl Total Bilirubin 1.1 H (0.2-1) mg/dl Direct Bilirubin (0-0.2) mg/dl AST 524 H (15-37) U/L ALT 104 H (12-78) U/L Alkaline Phosphatase 45 (45-117) U/L Lactate Dehydrogenase (87-241) U/L Total Creatine Kinase (39-308) U/L Troponin I 1.010 H* (0-0.045) ng/ml Total Protein 6.6 (6.4-8.2) gm/dl Albumin 1.8 L (3.4-5.0) gm/dl Globulin 4.8 H (2.5-4.0) gm/dl Albumin/Globulin Ratio 0.4 L (0.9-2) Procalcitonin (0-0.5) ng/ml Urine Color Urine Appearance (Clear) Urine pH (4.5-7.5) Ur Specific Horner (1.000-1.030) Urine Protein (Negative) Urine Glucose (UA) (Negative) Urine Ketones (Negative) Urine Blood (Negative) Urine Nitrite (Negative) Urine Bilirubin (Negative) Urine Urobilinogen (Negative) Ur Leukocyte Esterase (Negative) Urine WBC (Auto) (0-5) /hpf Urine RBC (Auto) (0-4) /hpf U Hyaline Cast (Auto) (0-5) /lpf U Epithel Cells (Auto) (0-5) /lpf Urine Bacteria (Auto) (Negative) Ur Renal Epithelial Cell (0-5) /lpf Granular Casts (0) /lpf Nasal Screen MRSA (PCR) Negative (Negative) Random Vancomycin mcg/ml COVID-19 Eval Order COVID-19 PCR (Negative) Hepatitis C Ab Screen (Neg) Influ A Molecular Assay (Negative) Influ B Molecular Assay (Negative) Bld Cult Staph aureus PCR (Negative) Blood Culture MRSA PCR (Negative) 03/01/20 03/01/20 03/01/20 Range/Units 11:45 07:58 07:58 WBC (4.8-10.8) K/uL RBC (4.7-6.1) M/uL Hgb (14.0-18.0) g/dL POC Hgb (14.0-18.0) g/dl Hct (42-52) % POC Hct (42-52) % MCV (80-100) fL MCH (25-34) pg MCHC (32-36) g/dL RDW Std Deviation (36.4-46.3) fL RDW Coeff of Elvira (11.5-14.5) % Plt Count (130-400) K/uL MPV (7.4-10.4) fL Immature Gran % (Auto) % Neut % (Auto) % Lymph % (Auto) % Morgan % (Auto) % Eos % (Auto) % Baso % (Auto) % Neut # (Auto) (1.4-6.5) K/uL Lymph # (Auto) (1.2-3.4) K/uL Morgan # (Auto) (0.11-0.59) K/uL Eos # (Auto) (0-0.5) K/uL Baso # (Auto) (0-0.2) K/uL Immature Gran # (Auto) (0.00-0.02) K/uL Absolute Nucleated RBC (0-0) K/uL Nucleated RBC % (auto) % Platelet Estimate (Normal) PT (9.0-12.0) Seconds INR (0.9-1.1) APTT (21.0-31.0) Seconds PTT Ratio POC Sodium (135-144) mmol/L Sodium (136-145) mmol/L POC Potassium (3.3-5.0) mmol/L Potassium (3.5-5.1) mmol/L POC Chloride (101-112) mmol/L Chloride (98-107) mmol/L Carbon Dioxide (21-32) mmol/L POC Total CO2 (24-31) mmol/L Anion Gap (3-11) POC Anion Gap (16-25) mmol/L POC BUN (7-18) mg/dl BUN (7-18) mg/dl Creatinine (0.6-1.4) mg/dl POC Creatinine (0.6-1.3) mg/dl Est Cr Clr Drug Dosing Est GFR ( Amer) Est GFR (Non-Af Amer) BUN/Creatinine Ratio (10-20) Glucose (70-99) mg/dl POC Glucose 155 H (70-99) mg/dl POC Glucose (other) (70-99) mg/dl Estimat Average Glucose mg/dl Hemoglobin A1c (4.5-5.6) % Lactate (0.4-2.0) mmol/L Uric Acid (2.6-7.2) mg/dl Calcium (8.5-10.1) mg/dl POC Ioniz Calcium Terrell (1.12-1.32) mmol/l Phosphorus (2.5-4.9) mg/dl Magnesium (1.8-2.4) mg/dl Total Bilirubin (0.2-1) mg/dl Direct Bilirubin (0-0.2) mg/dl AST (15-37) U/L ALT (12-78) U/L Alkaline Phosphatase (45-117) U/L Lactate Dehydrogenase (87-241) U/L Total Creatine Kinase (39-308) U/L Troponin I (0-0.045) ng/ml Total Protein (6.4-8.2) gm/dl Albumin (3.4-5.0) gm/dl Globulin (2.5-4.0) gm/dl Albumin/Globulin Ratio (0.9-2) Procalcitonin (0-0.5) ng/ml Urine Color Urine Appearance (Clear) Urine pH (4.5-7.5) Ur Specific Horner (1.000-1.030) Urine Protein (Negative) Urine Glucose (UA) (Negative) Urine Ketones (Negative) Urine Blood (Negative) Urine Nitrite (Negative) Urine Bilirubin (Negative) Urine Urobilinogen (Negative) Ur Leukocyte Esterase (Negative) Urine WBC (Auto) (0-5) /hpf Urine RBC (Auto) (0-4) /hpf U Hyaline Cast (Auto) (0-5) /lpf U Epithel Cells (Auto) (0-5) /lpf Urine Bacteria (Auto) (Negative) Ur Renal Epithelial Cell (0-5) /lpf Granular Casts (0) /lpf Nasal Screen MRSA (PCR) (Negative) Random Vancomycin 18.8 mcg/ml COVID-19 Eval Order COVID-19 PCR (Negative) Hepatitis C Ab Screen Neg (Neg) Influ A Molecular Assay (Negative) Influ B Molecular Assay (Negative) Bld Cult Staph aureus PCR (Negative) Blood Culture MRSA PCR (Negative) 03/01/20 03/01/20 03/01/20 Range/Units 07:58 07:58 07:58 WBC (4.8-10.8) K/uL RBC (4.7-6.1) M/uL Hgb (14.0-18.0) g/dL POC Hgb (14.0-18.0) g/dl Hct (42-52) % POC Hct (42-52) % MCV (80-100) fL MCH (25-34) pg MCHC (32-36) g/dL RDW Std Deviation (36.4-46.3) fL RDW Coeff of Elvira (11.5-14.5) % Plt Count (130-400) K/uL MPV (7.4-10.4) fL Immature Gran % (Auto) % Neut % (Auto) % Lymph % (Auto) % Morgan % (Auto) % Eos % (Auto) % Baso % (Auto) % Neut # (Auto) (1.4-6.5) K/uL Lymph # (Auto) (1.2-3.4) K/uL Morgan # (Auto) (0.11-0.59) K/uL Eos # (Auto) (0-0.5) K/uL Baso # (Auto) (0-0.2) K/uL Immature Gran # (Auto) (0.00-0.02) K/uL Absolute Nucleated RBC (0-0) K/uL Nucleated RBC % (auto) % Platelet Estimate (Normal) PT (9.0-12.0) Seconds INR (0.9-1.1) APTT (21.0-31.0) Seconds PTT Ratio POC Sodium (135-144) mmol/L Sodium 142 D (136-145) mmol/L POC Potassium (3.3-5.0) mmol/L Potassium 3.1 L (3.5-5.1) mmol/L POC Chloride (101-112) mmol/L Chloride 115 H (98-107) mmol/L Carbon Dioxide 21 (21-32) mmol/L POC Total CO2 (24-31) mmol/L Anion Gap 6.0 (3-11) POC Anion Gap (16-25) mmol/L POC BUN (7-18) mg/dl BUN 17 (7-18) mg/dl Creatinine 1.65 H D (0.6-1.4) mg/dl POC Creatinine (0.6-1.3) mg/dl Est Cr Clr Drug Dosing 54.4 Est GFR ( Amer) 50.8 Est GFR (Non-Af Amer) 43.8 BUN/Creatinine Ratio 10.3 (10-20) Glucose 98 (70-99) mg/dl POC Glucose (70-99) mg/dl POC Glucose (other) (70-99) mg/dl Estimat Average Glucose 137 mg/dl Hemoglobin A1c 6.4 H (4.5-5.6) % Lactate (0.4-2.0) mmol/L Uric Acid 4.7 (2.6-7.2) mg/dl Calcium 6.6 L D (8.5-10.1) mg/dl POC Ioniz Calcium Terrell (1.12-1.32) mmol/l Phosphorus 2.1 L (2.5-4.9) mg/dl Magnesium (1.8-2.4) mg/dl Total Bilirubin 1.1 H (0.2-1) mg/dl Direct Bilirubin 0.5 H (0-0.2) mg/dl AST 528 H (15-37) U/L ALT 107 H (12-78) U/L Alkaline Phosphatase 45 (45-117) U/L Lactate Dehydrogenase 1010 H (87-241) U/L Total Creatine Kinase 84316 H (39-308) U/L Troponin I 1.160 H* (0-0.045) ng/ml Total Protein 6.7 D (6.4-8.2) gm/dl Albumin 1.9 L (3.4-5.0) gm/dl Globulin (2.5-4.0) gm/dl Albumin/Globulin Ratio (0.9-2) Procalcitonin (0-0.5) ng/ml Urine Color Urine Appearance (Clear) Urine pH (4.5-7.5) Ur Specific Horner (1.000-1.030) Urine Protein (Negative) Urine Glucose (UA) (Negative) Urine Ketones (Negative) Urine Blood (Negative) Urine Nitrite (Negative) Urine Bilirubin (Negative) Urine Urobilinogen (Negative) Ur Leukocyte Esterase (Negative) Urine WBC (Auto) (0-5) /hpf Urine RBC (Auto) (0-4) /hpf U Hyaline Cast (Auto) (0-5) /lpf U Epithel Cells (Auto) (0-5) /lpf Urine Bacteria (Auto) (Negative) Ur Renal Epithelial Cell (0-5) /lpf Granular Casts (0) /lpf Nasal Screen MRSA (PCR) (Negative) Random Vancomycin mcg/ml COVID-19 Eval Order COVID-19 PCR (Negative) Hepatitis C Ab Screen (Neg) Influ A Molecular Assay (Negative) Influ B Molecular Assay (Negative) Bld Cult Staph aureus PCR (Negative) Blood Culture MRSA PCR (Negative) 03/01/20 03/01/20 03/01/20 Range/Units 07:58 07:42 01:20 WBC 2.85 L (4.8-10.8) K/uL RBC 2.40 L (4.7-6.1) M/uL Hgb 8.3 L (14.0-18.0) g/dL POC Hgb (14.0-18.0) g/dl Hct 25.7 L (42-52) % POC Hct (42-52) % MCV 107.1 H (80-100) fL MCH 34.6 H (25-34) pg MCHC 32.3 (32-36) g/dL RDW Std Deviation 58.6 H (36.4-46.3) fL RDW Coeff of Elvira 15.0 H (11.5-14.5) % Plt Count 97 L (130-400) K/uL MPV 9.9 (7.4-10.4) fL Immature Gran % (Auto) 1.8 % Neut % (Auto) 84.1 % Lymph % (Auto) 11.9 % Morgan % (Auto) 1.8 % Eos % (Auto) 0.0 % Baso % (Auto) 0.4 % Neut # (Auto) 2.40 (1.4-6.5) K/uL Lymph # (Auto) 0.34 L (1.2-3.4) K/uL Morgan # (Auto) 0.05 L (0.11-0.59) K/uL Eos # (Auto) 0.00 (0-0.5) K/uL Baso # (Auto) 0.01 (0-0.2) K/uL Immature Gran # (Auto) 0.05 H (0.00-0.02) K/uL Absolute Nucleated RBC 0.02 H (0-0) K/uL Nucleated RBC % (auto) 0.6 % Platelet Estimate Decreased L (Normal) PT (9.0-12.0) Seconds INR (0.9-1.1) APTT (21.0-31.0) Seconds PTT Ratio POC Sodium (135-144) mmol/L Sodium (136-145) mmol/L POC Potassium (3.3-5.0) mmol/L Potassium (3.5-5.1) mmol/L POC Chloride (101-112) mmol/L Chloride (98-107) mmol/L Carbon Dioxide (21-32) mmol/L POC Total CO2 (24-31) mmol/L Anion Gap (3-11) POC Anion Gap (16-25) mmol/L POC BUN (7-18) mg/dl BUN (7-18) mg/dl Creatinine (0.6-1.4) mg/dl POC Creatinine (0.6-1.3) mg/dl Est Cr Clr Drug Dosing Est GFR ( Amer) Est GFR (Non-Af Amer) BUN/Creatinine Ratio (10-20) Glucose (70-99) mg/dl POC Glucose 108 H 147 H (70-99) mg/dl POC Glucose (other) (70-99) mg/dl Estimat Average Glucose mg/dl Hemoglobin A1c (4.5-5.6) % Lactate (0.4-2.0) mmol/L Uric Acid (2.6-7.2) mg/dl Calcium (8.5-10.1) mg/dl POC Ioniz Calcium Terrell (1.12-1.32) mmol/l Phosphorus (2.5-4.9) mg/dl Magnesium (1.8-2.4) mg/dl Total Bilirubin (0.2-1) mg/dl Direct Bilirubin (0-0.2) mg/dl AST (15-37) U/L ALT (12-78) U/L Alkaline Phosphatase (45-117) U/L Lactate Dehydrogenase (87-241) U/L Total Creatine Kinase (39-308) U/L Troponin I (0-0.045) ng/ml Total Protein (6.4-8.2) gm/dl Albumin (3.4-5.0) gm/dl Globulin (2.5-4.0) gm/dl Albumin/Globulin Ratio (0.9-2) Procalcitonin (0-0.5) ng/ml Urine Color Urine Appearance (Clear) Urine pH (4.5-7.5) Ur Specific Horner (1.000-1.030) Urine Protein (Negative) Urine Glucose (UA) (Negative) Urine Ketones (Negative) Urine Blood (Negative) Urine Nitrite (Negative) Urine Bilirubin (Negative) Urine Urobilinogen (Negative) Ur Leukocyte Esterase (Negative) Urine WBC (Auto) (0-5) /hpf Urine RBC (Auto) (0-4) /hpf U Hyaline Cast (Auto) (0-5) /lpf U Epithel Cells (Auto) (0-5) /lpf Urine Bacteria (Auto) (Negative) Ur Renal Epithelial Cell (0-5) /lpf Granular Casts (0) /lpf Nasal Screen MRSA (PCR) (Negative) Random Vancomycin mcg/ml COVID-19 Eval Order COVID-19 PCR (Negative) Hepatitis C Ab Screen (Neg) Influ A Molecular Assay (Negative) Influ B Molecular Assay (Negative) Bld Cult Staph aureus PCR (Negative) Blood Culture MRSA PCR (Negative) 02/29/20 02/29/20 02/29/20 Range/Units 21:48 21:48 20:22 WBC (4.8-10.8) K/uL RBC (4.7-6.1) M/uL Hgb (14.0-18.0) g/dL POC Hgb (14.0-18.0) g/dl Hct (42-52) % POC Hct (42-52) % MCV (80-100) fL MCH (25-34) pg MCHC (32-36) g/dL RDW Std Deviation (36.4-46.3) fL RDW Coeff of Elvira (11.5-14.5) % Plt Count (130-400) K/uL MPV (7.4-10.4) fL Immature Gran % (Auto) % Neut % (Auto) % Lymph % (Auto) % Morgan % (Auto) % Eos % (Auto) % Baso % (Auto) % Neut # (Auto) (1.4-6.5) K/uL Lymph # (Auto) (1.2-3.4) K/uL Morgan # (Auto) (0.11-0.59) K/uL Eos # (Auto) (0-0.5) K/uL Baso # (Auto) (0-0.2) K/uL Immature Gran # (Auto) (0.00-0.02) K/uL Absolute Nucleated RBC (0-0) K/uL Nucleated RBC % (auto) % Platelet Estimate (Normal) PT (9.0-12.0) Seconds INR (0.9-1.1) APTT (21.0-31.0) Seconds PTT Ratio POC Sodium (135-144) mmol/L Sodium (136-145) mmol/L POC Potassium (3.3-5.0) mmol/L Potassium (3.5-5.1) mmol/L POC Chloride (101-112) mmol/L Chloride (98-107) mmol/L Carbon Dioxide (21-32) mmol/L POC Total CO2 (24-31) mmol/L Anion Gap (3-11) POC Anion Gap (16-25) mmol/L POC BUN (7-18) mg/dl BUN (7-18) mg/dl Creatinine (0.6-1.4) mg/dl POC Creatinine (0.6-1.3) mg/dl Est Cr Clr Drug Dosing Est GFR ( Amer) Est GFR (Non-Af Amer) BUN/Creatinine Ratio (10-20) Glucose (70-99) mg/dl POC Glucose (70-99) mg/dl POC Glucose (other) (70-99) mg/dl Estimat Average Glucose mg/dl Hemoglobin A1c (4.5-5.6) % Lactate 1.9 (0.4-2.0) mmol/L Uric Acid (2.6-7.2) mg/dl Calcium (8.5-10.1) mg/dl POC Ioniz Calcium Terrell (1.12-1.32) mmol/l Phosphorus (2.5-4.9) mg/dl Magnesium (1.8-2.4) mg/dl Total Bilirubin (0.2-1) mg/dl Direct Bilirubin (0-0.2) mg/dl AST (15-37) U/L ALT (12-78) U/L Alkaline Phosphatase (45-117) U/L Lactate Dehydrogenase (87-241) U/L Total Creatine Kinase (39-308) U/L Troponin I (0-0.045) ng/ml Total Protein (6.4-8.2) gm/dl Albumin (3.4-5.0) gm/dl Globulin (2.5-4.0) gm/dl Albumin/Globulin Ratio (0.9-2) Procalcitonin (0-0.5) ng/ml Urine Color Thomas Urine Appearance Turbid A (Clear) Urine pH 5.0 (4.5-7.5) Ur Specific Horner 1.025 (1.000-1.030) Urine Protein 3+ H (Negative) Urine Glucose (UA) Trace H (Negative) Urine Ketones 2+ H (Negative) Urine Blood 3+ H (Negative) Urine Nitrite Negative (Negative) Urine Bilirubin Negative (Negative) Urine Urobilinogen Negative (Negative) Ur Leukocyte Esterase 1+ H (Negative) Urine WBC (Auto) 10-30 H (0-5) /hpf Urine RBC (Auto) 10-30 H (0-4) /hpf U Hyaline Cast (Auto) >30 H (0-5) /lpf U Epithel Cells (Auto) >30 H (0-5) /lpf Urine Bacteria (Auto) Negative (Negative) Ur Renal Epithelial Cell 0-5 (0-5) /lpf Granular Casts >30 H (0) /lpf Nasal Screen MRSA (PCR) (Negative) Random Vancomycin mcg/ml COVID-19 Eval Order COVID-19 PCR (Negative) Hepatitis C Ab Screen (Neg) Influ A Molecular Assay Negative (Negative) Influ B Molecular Assay Negative (Negative) Bld Cult Staph aureus PCR (Negative) Blood Culture MRSA PCR (Negative) 02/29/20 02/29/20 02/29/20 Range/Units 20:22 20:22 20:01 WBC (4.8-10.8) K/uL RBC (4.7-6.1) M/uL Hgb (14.0-18.0) g/dL POC Hgb (14.0-18.0) g/dl Hct (42-52) % POC Hct (42-52) % MCV (80-100) fL MCH (25-34) pg MCHC (32-36) g/dL RDW Std Deviation (36.4-46.3) fL RDW Coeff of Elvira (11.5-14.5) % Plt Count (130-400) K/uL MPV (7.4-10.4) fL Immature Gran % (Auto) % Neut % (Auto) % Lymph % (Auto) % Morgan % (Auto) % Eos % (Auto) % Baso % (Auto) % Neut # (Auto) (1.4-6.5) K/uL Lymph # (Auto) (1.2-3.4) K/uL Morgan # (Auto) (0.11-0.59) K/uL Eos # (Auto) (0-0.5) K/uL Baso # (Auto) (0-0.2) K/uL Immature Gran # (Auto) (0.00-0.02) K/uL Absolute Nucleated RBC (0-0) K/uL Nucleated RBC % (auto) % Platelet Estimate (Normal) PT (9.0-12.0) Seconds INR (0.9-1.1) APTT (21.0-31.0) Seconds PTT Ratio POC Sodium (135-144) mmol/L Sodium (136-145) mmol/L POC Potassium (3.3-5.0) mmol/L Potassium (3.5-5.1) mmol/L POC Chloride (101-112) mmol/L Chloride (98-107) mmol/L Carbon Dioxide (21-32) mmol/L POC Total CO2 (24-31) mmol/L Anion Gap (3-11) POC Anion Gap (16-25) mmol/L POC BUN (7-18) mg/dl BUN (7-18) mg/dl Creatinine (0.6-1.4) mg/dl POC Creatinine (0.6-1.3) mg/dl Est Cr Clr Drug Dosing Est GFR ( Amer) Est GFR (Non-Af Amer) BUN/Creatinine Ratio (10-20) Glucose (70-99) mg/dl POC Glucose (70-99) mg/dl POC Glucose (other) (70-99) mg/dl Estimat Average Glucose mg/dl Hemoglobin A1c (4.5-5.6) % Lactate (0.4-2.0) mmol/L Uric Acid (2.6-7.2) mg/dl Calcium (8.5-10.1) mg/dl POC Ioniz Calcium Terrell (1.12-1.32) mmol/l Phosphorus (2.5-4.9) mg/dl Magnesium (1.8-2.4) mg/dl Total Bilirubin (0.2-1) mg/dl Direct Bilirubin (0-0.2) mg/dl AST (15-37) U/L ALT (12-78) U/L Alkaline Phosphatase (45-117) U/L Lactate Dehydrogenase (87-241) U/L Total Creatine Kinase (39-308) U/L Troponin I (0-0.045) ng/ml Total Protein (6.4-8.2) gm/dl Albumin (3.4-5.0) gm/dl Globulin (2.5-4.0) gm/dl Albumin/Globulin Ratio (0.9-2) Procalcitonin (0-0.5) ng/ml Urine Color Urine Appearance (Clear) Urine pH (4.5-7.5) Ur Specific Horner (1.000-1.030) Urine Protein (Negative) Urine Glucose (UA) (Negative) Urine Ketones (Negative) Urine Blood (Negative) Urine Nitrite (Negative) Urine Bilirubin (Negative) Urine Urobilinogen (Negative) Ur Leukocyte Esterase (Negative) Urine WBC (Auto) (0-5) /hpf Urine RBC (Auto) (0-4) /hpf U Hyaline Cast (Auto) (0-5) /lpf U Epithel Cells (Auto) (0-5) /lpf Urine Bacteria (Auto) (Negative) Ur Renal Epithelial Cell (0-5) /lpf Granular Casts (0) /lpf Nasal Screen MRSA (PCR) (Negative) Random Vancomycin mcg/ml COVID-19 Eval Order Covid19 Done at [facility] COVID-19 PCR NEGATIVE (Negative) Hepatitis C Ab Screen (Neg) Influ A Molecular Assay (Negative) Influ B Molecular Assay (Negative) Bld Cult Staph aureus PCR Negative (Negative) Blood Culture MRSA PCR Negative (Negative) 02/29/20 02/29/20 02/29/20 Range/Units 20:01 19:54 19:45 WBC (4.8-10.8) K/uL RBC (4.7-6.1) M/uL Hgb (14.0-18.0) g/dL POC Hgb 11.2 L (14.0-18.0) g/dl Hct (42-52) % POC Hct 33 L (42-52) % MCV (80-100) fL MCH (25-34) pg MCHC (32-36) g/dL RDW Std Deviation (36.4-46.3) fL RDW Coeff of Elvira (11.5-14.5) % Plt Count (130-400) K/uL MPV (7.4-10.4) fL Immature Gran % (Auto) % Neut % (Auto) % Lymph % (Auto) % Morgan % (Auto) % Eos % (Auto) % Baso % (Auto) % Neut # (Auto) (1.4-6.5) K/uL Lymph # (Auto) (1.2-3.4) K/uL Morgan # (Auto) (0.11-0.59) K/uL Eos # (Auto) (0-0.5) K/uL Baso # (Auto) (0-0.2) K/uL Immature Gran # (Auto) (0.00-0.02) K/uL Absolute Nucleated RBC (0-0) K/uL Nucleated RBC % (auto) % Platelet Estimate (Normal) PT (9.0-12.0) Seconds INR (0.9-1.1) APTT (21.0-31.0) Seconds PTT Ratio POC Sodium 137 (135-144) mmol/L Sodium (136-145) mmol/L POC Potassium 3.1 L (3.3-5.0) mmol/L Potassium (3.5-5.1) mmol/L POC Chloride 103 (101-112) mmol/L Chloride (98-107) mmol/L Carbon Dioxide (21-32) mmol/L POC Total CO2 18 L (24-31) mmol/L Anion Gap (3-11) POC Anion Gap 21.0 (16-25) mmol/L POC BUN 21 H (7-18) mg/dl BUN (7-18) mg/dl Creatinine (0.6-1.4) mg/dl POC Creatinine 2.2 H (0.6-1.3) mg/dl Est Cr Clr Drug Dosing Est GFR ( Amer) Est GFR (Non-Af Amer) BUN/Creatinine Ratio (10-20) Glucose (70-99) mg/dl POC Glucose (70-99) mg/dl POC Glucose (other) 200 H (70-99) mg/dl Estimat Average Glucose mg/dl Hemoglobin A1c (4.5-5.6) % Lactate 3.6 H* (0.4-2.0) mmol/L Uric Acid (2.6-7.2) mg/dl Calcium (8.5-10.1) mg/dl POC Ioniz Calcium Terrell 1.08 L (1.12-1.32) mmol/l Phosphorus (2.5-4.9) mg/dl Magnesium (1.8-2.4) mg/dl Total Bilirubin (0.2-1) mg/dl Direct Bilirubin (0-0.2) mg/dl AST (15-37) U/L ALT (12-78) U/L Alkaline Phosphatase (45-117) U/L Lactate Dehydrogenase (87-241) U/L Total Creatine Kinase (39-308) U/L Troponin I (0-0.045) ng/ml Total Protein (6.4-8.2) gm/dl Albumin (3.4-5.0) gm/dl Globulin (2.5-4.0) gm/dl Albumin/Globulin Ratio (0.9-2) Procalcitonin 2.27 H (0-0.5) ng/ml Urine Color Urine Appearance (Clear) Urine pH (4.5-7.5) Ur Specific Horner (1.000-1.030) Urine Protein (Negative) Urine Glucose (UA) (Negative) Urine Ketones (Negative) Urine Blood (Negative) Urine Nitrite (Negative) Urine Bilirubin (Negative) Urine Urobilinogen (Negative) Ur Leukocyte Esterase (Negative) Urine WBC (Auto) (0-5) /hpf Urine RBC (Auto) (0-4) /hpf U Hyaline Cast (Auto) (0-5) /lpf U Epithel Cells (Auto) (0-5) /lpf Urine Bacteria (Auto) (Negative) Ur Renal Epithelial Cell (0-5) /lpf Granular Casts (0) /lpf Nasal Screen MRSA (PCR) (Negative) Random Vancomycin mcg/ml COVID-19 Eval Order COVID-19 PCR (Negative) Hepatitis C Ab Screen (Neg) Influ A Molecular Assay (Negative) Influ B Molecular Assay (Negative) Bld Cult Staph aureus PCR (Negative) Blood Culture MRSA PCR (Negative) 02/29/20 02/29/20 02/29/20 Range/Units 19:45 19:45 19:45 WBC 6.77 (4.8-10.8) K/uL RBC 2.98 L (4.7-6.1) M/uL Hgb 10.6 L (14.0-18.0) g/dL POC Hgb (14.0-18.0) g/dl Hct 31.7 L (42-52) % POC Hct (42-52) % MCV 106.4 H (80-100) fL MCH 35.6 H (25-34) pg MCHC 33.4 (32-36) g/dL RDW Std Deviation 57.9 H (36.4-46.3) fL RDW Coeff of Elvira 15.0 H (11.5-14.5) % Plt Count 145 (130-400) K/uL MPV 10.4 (7.4-10.4) fL Immature Gran % (Auto) 3.8 % Neut % (Auto) 79.1 % Lymph % (Auto) 10.2 % Morgan % (Auto) 6.5 % Eos % (Auto) 0.0 % Baso % (Auto) 0.4 % Neut # (Auto) 5.35 (1.4-6.5) K/uL Lymph # (Auto) 0.69 L (1.2-3.4) K/uL Morgan # (Auto) 0.44 (0.11-0.59) K/uL Eos # (Auto) 0.00 (0-0.5) K/uL Baso # (Auto) 0.03 (0-0.2) K/uL Immature Gran # (Auto) 0.26 H (0.00-0.02) K/uL Absolute Nucleated RBC 0.06 H (0-0) K/uL Nucleated RBC % (auto) 0.9 % Platelet Estimate (Normal) PT 12.3 H (9.0-12.0) Seconds INR 1.2 H (0.9-1.1) APTT 25.5 (21.0-31.0) Seconds PTT Ratio 0.9 POC Sodium (135-144) mmol/L Sodium 135 L (136-145) mmol/L POC Potassium (3.3-5.0) mmol/L Potassium 3.1 L (3.5-5.1) mmol/L POC Chloride (101-112) mmol/L Chloride 103 (98-107) mmol/L Carbon Dioxide 21 (21-32) mmol/L POC Total CO2 (24-31) mmol/L Anion Gap 11.0 (3-11) POC Anion Gap (16-25) mmol/L POC BUN (7-18) mg/dl BUN 21 H (7-18) mg/dl Creatinine 2.41 H (0.6-1.4) mg/dl POC Creatinine (0.6-1.3) mg/dl Est Cr Clr Drug Dosing Not Reportable Est GFR ( Amer) 32.1 Est GFR (Non-Af Amer) 27.7 BUN/Creatinine Ratio 8.7 L (10-20) Glucose 201 H (70-99) mg/dl POC Glucose (70-99) mg/dl POC Glucose (other) (70-99) mg/dl Estimat Average Glucose mg/dl Hemoglobin A1c (4.5-5.6) % Lactate (0.4-2.0) mmol/L Uric Acid (2.6-7.2) mg/dl Calcium 8.9 (8.5-10.1) mg/dl POC Ioniz Calcium Terrell (1.12-1.32) mmol/l Phosphorus (2.5-4.9) mg/dl Magnesium 2.4 (1.8-2.4) mg/dl Total Bilirubin 1.9 H (0.2-1) mg/dl Direct Bilirubin (0-0.2) mg/dl AST 374 H (15-37) U/L ALT 85 H (12-78) U/L Alkaline Phosphatase 65 (45-117) U/L Lactate Dehydrogenase (87-241) U/L Total Creatine Kinase 55800 H (39-308) U/L Troponin I 0.885 H* (0-0.045) ng/ml Total Protein 9.2 H (6.4-8.2) gm/dl Albumin 2.9 L (3.4-5.0) gm/dl Globulin 6.3 H (2.5-4.0) gm/dl Albumin/Globulin Ratio 0.5 L (0.9-2) Procalcitonin (0-0.5) ng/ml Urine Color Urine Appearance (Clear) Urine pH (4.5-7.5) Ur Specific Horner (1.000-1.030) Urine Protein (Negative) Urine Glucose (UA) (Negative) Urine Ketones (Negative) Urine Blood (Negative) Urine Nitrite (Negative) Urine Bilirubin (Negative) Urine Urobilinogen (Negative) Ur Leukocyte Esterase (Negative) Urine WBC (Auto) (0-5) /hpf Urine RBC (Auto) (0-4) /hpf U Hyaline Cast (Auto) (0-5) /lpf U Epithel Cells (Auto) (0-5) /lpf Urine Bacteria (Auto) (Negative) Ur Renal Epithelial Cell (0-5) /lpf Granular Casts (0) /lpf Nasal Screen MRSA (PCR) (Negative) Random Vancomycin mcg/ml COVID-19 Eval Order COVID-19 PCR (Negative) Hepatitis C Ab Screen (Neg) Influ A Molecular Assay (Negative) Influ B Molecular Assay (Negative) Bld Cult Staph aureus PCR (Negative) Blood Culture MRSA PCR (Negative) PG Care Time/CCT Total # of Minutes Spent Total Time Spent with Patient: Total time spent is greater than 50% in coordination of care (as documented) at patient's floor/unit and/or counseling patient: Coding Level of Care Code 56351 Subseq Hosp Care Lvl 3 Diagnoses CHLOÉ (acute kidney injury) N17.9 Sepsis A41.9; R65.20; G93.40 Sepsis acute organ dysfunction status: with acute organ dysfunction Sepsis type: sepsis due to unspecified organism Severe sepsis acute organ dysfunction type: encephalopathy Severe sepsis shock status: without septic shock Pneumonia J18.9 Pneumonia type: due to unspecified organism Rhabdomyolysis M62.82 Rhabdomyolysis type: non-traumatic Acute respiratory failure with hypoxia J96.01 Atrial fibrillation with rapid ventricular response I48.91 Elevated troponin R77.8 Abnormal liver enzymes R74.8 Multiple myeloma in remission C90.01 Hypokalemia E87.6 Hypophosphatemia E83.39 CKD (chronic kidney disease) N18.9 HTN (hypertension) I10 GERD (gastroesophageal reflux disease) K21.9 Fall W19.XXXA Pancytopenia D61.818 Prediabetes R73.03 Neuropathy G62.9 DVT prophylaxis Z29.9 (1) Rhabdomyolysis Rhabdomyolysis type: non-traumatic Qualified Code(s): M62.82 - Rhabdomyolysis (2) Sepsis Sepsis acute organ dysfunction status: with acute organ dysfunction Sepsis type: sepsis due to unspecified organism Severe sepsis acute organ dysfunction type: encephalopathy Severe sepsis shock status: without septic shock Qualified Code(s): A41.9 - Sepsis, unspecified organism; R65.20 - Severe sepsis without septic shock; G93.40 - Encephalopathy, unspecified (3) Pneumonia Pneumonia type: due to unspecified organism
[2020-03-01] MEDS: VANCOMYCIN HCL 1,000 MG in SODIUM CHLORIDE 0.9% 250 ML IV SCH ×2 (11:27→23:50)
[2020-03-01] MEDS: POTASSIUM CHLORIDE / WTR 10 MEQ/100 ML PLCT IV SCH ×3 (11:28→14:18)
[2020-03-01] MEDS: ACETAMINOPHEN 1,000 MG/100 ML VIAL IV PRN ×2 (11:53→23:34)
[2020-03-01 13:21] LABS: Albumin Level 1.8 gm/dl (3.4-5.0); BUN Creatinine Ratio 8.9 (10-20); Calcium 6.8 mg/dl (8.5-10.1); Creatinine Clr Calc Pharmacy 52.8 ml/min; Est GFR (Non-African American) 42.3
[2020-03-01 13:50] LABS: Albumin Globulin Ratio 0.4 (0.9-2); Bilirubin,Total 1.1 mg/dl (0.2-1); Globulin 4.8 gm/dl (2.5-4.0); Phosphorus 0.9 mg/dl (2.5-4.9); Total Protein 6.6 gm/dl (6.4-8.2); Troponin I 1.01 ng/ml (0-0.045)
[2020-03-01] MEDS ORDERED: POTASSIUM PHOS 3 MMOL/1 ML INFUSION IV STA ×2 (13:56→20:59)
[2020-03-01] MEDS ORDERED: POTASSIUM PHOSPHATE 24 MMOL in SODIUM CHLORIDE 0.9% 500 ML IV ONE (14:15)
--- NOTE | 2020-03-01 15:03 | XCELERA ---
[id number]
--- NOTE | 2020-03-01 15:17 | Cardiology Consultation ---
Date of Consultation March 01, 2020 Assessment & Plan (1) Paroxysmal atrial fibrillation: (2) Elevated troponin: (3) Sepsis: ASSESSMENT/PLAN: 1. Paroxysmal atrial fibrillation: This is his at least second known/documented episode. The first was when he was septic with neutropenic fever in 2018 and once again while septic with high fever. Fortunately, he spontaneously converted in less than 2 hours. Would recommend continuation of beta-hermelindo therapy. He believes his home dose is 100 mg twice daily of metoprolol. If tolerable, would change to his home dose. Would hold off on anticoagulation currently unless he has prolonged episode and if his blood counts and clinical s ituation at that time allows. His AFib is likely situational given his acute illness. Would also be concerned with long-term anticoagulation given current anemia and mild thrombocytopenia while being treated for multiple myeloma. 2. Elevated troponin: Likely multifactorial due to rhabdomyolysis, acute illness/sepsis with high fever, and also AFib with RVR overnight. He did not present with acute coronary syndrome. No further ischemic evaluation at this time. 3. Sepsis: As per primary service. 4. Disposition: Follow-up with his primary repairer pump Dr. Baig on discharge. Please call with any other questions or concerns during this hospital stay. Thank you for allowing me to participate in the care of your patient. Please call for any other questions or concerns. Sincerely, Joel Munoz M.D. History of Present Illness Reason for Consultation: AFib with RVR and elevated troponin Requesting Physician: Tamiko Marion MD Attending Physician: Tamiko Marion MD History of Present Illness Mr. Collins is a very pleasant 64-year-old gentleman with a history significant for multiple myeloma on chemotherapy and status post 2 separate stem cell tra nsplants, paroxysmal atrial fibrillation, hypertension, and peripheral neuropathy. His primary repairer pump is Dr. Baig. He was hospitalized in November of 2017 and after hospitalization, developed atrial fibrillation with rapid ventricular response his initial hospitalization at that time was for right lower lobe pneumonia and presumed sepsis and reportedly was pancytopenic at that time. During hospitalization, he received IV amiodarone and was discharged on amiodarone 200 mg daily. He was admitted yesterday on 02/29/2020 for concerns of sepsis and left upper lobe pneumonia. His presenting temperature was 41.2 degree C. He states that he had a mechanical fall at home and felt very weak. He was unable to get up off the floor and estimates that he laid on the floor for greater than 1 day. He was apparently found with emesis present as well although he does not recall all of the details of being on the ground. He believes the neighbor called to check up on him when they noticed that his mail was over flowing. He currently denies chest pain, shortness of breath, syncope, near-syncope, palpitations, edema, or bleeding. His left arm is wrapped as there apparently is some wound on his left arm. When asked about amiodarone, he does not recall being on that medication. His H and P list metoprolol 50 mg 3 times daily but he states he only takes it twice daily and believes the dose to be 100 mg twice daily. He admits that he still feels washed out and weak. He reportedly underwent cardiac catheterization in February of 2011 with no CAD. Review of systems: As above. Review of systems otherwise negative/unremarkable. Family history: No known premature CAD. Social history: Denies tobacco. Rare alcohol. No drugs. Lives alone. Never been . No children. On disability. He was unaccompanied. Allergies Allergy/AdvReac Type Severity Reaction Status Date / Time epinephrine Allergy Intermediate STATES Verified 10/30/19 15:37 GETS A "WARNER" levofloxacin Allergy Intermediate RASH Verified 02/29/20 22:23 Sulfa (Sulfonamide Allergy Intermediate Rash Verified 02/29/20 22:24 Antibiotics) house dust Allergy Unknown Itchy Verified 02/29/20 22:24 Eye(s) Home Medications Home Medications Medication Instructions Recorded Confirmed Type Calcium 600 + D(3) 1 cap PO QAM 08/07/18 02/29/20 History acyclovir 400 mg PO BID 08/07/18 02/29/20 History aspirin 81 mg PO QAM 08/07/18 02/29/20 History cyanocobalamin (vitamin B-12) 1,000 mcg PO QAM 08/07/18 02/29/20 History [Vitamin B-12] gabapentin 300 mg PO TID 08/07/18 02/29/20 History guaifenesin [Mucinex] 600 mg PO Q12H PRN 08/07/18 02/29/20 History metoprolol tartrate 50 mg PO TID 08/07/18 02/29/20 History omega [id number] oil [Fish Oil] 2 cap PO QAM 08/07/18 02/29/20 History pantoprazole 40 mg PO BID 08/07/18 02/29/20 History ascorbic acid (vitamin C) 500 mg 500 mg PO QAM cap 02/23/19 02/29/20 History capsule dexamethasone 4 mg tablet See Rx Instructions .ROUTE 02/23/19 02/29/20 History .COMPLEX tab hydrochlorothiazide 12.5 mg PO QAM 06/08/19 02/29/20 History potassium chloride 20 meq PO QAM 06/08/19 02/29/20 History doxepin 100 mg capsule 100 mg PO HS #90 cap 02/25/20 02/29/20 Rx acetaminophen [Tylenol Extra 500 mg PO Q6H PRN 02/29/20 02/29/20 History Strength] cetirizine 10 mg PO BID PRN 02/29/20 02/29/20 History cod liver oil 1 cap PO DAILY 02/29/20 02/29/20 History docusate sodium [Colace] 100 mg PO DAILY PRN 02/29/20 02/29/20 History flaxseed oil 1 ea MISCELLANEOUS DAILY 02/29/20 02/29/20 History fluticasone propionate [Flonase] 2 spray INTRANASAL DAILY 02/29/20 02/29/20 History Patient History Medical History (Updated 03/01/20 @ 15:13 by Tam Munoz MD) CKD (chronic kidney disease) Constipation GERD (gastroesophageal reflux disease) HTN (hypertension) Multiple myeloma Neuropathy BL FOOT; 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 CANCER TREATMENT Paroxysmal atrial fibrillation Seasonal allergies Surgical History History of bone marrow biopsy History of cataract surgery BL History of colonoscopy History of incision and drainage CYST - RT GROIN History of stem cell transplant History of surgery CYST REMOVED FROM COCCYX 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; 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 Family History (System 10/30/19 @ 15:37 by Maricel Arizmendi) Family/Other Family history of diabetes mellitus Social History Smoking Status: Never smoker Second Hand Exposure: No; Do You Dip or Chew Tobacco: No; Hx Alcohol Use: Yes Alcohol type: wine Hx Substance Use: No Preferred Language: Belarusian Communication Ability: Effective Pocket Stitcher Required: No Beliefs That Will Affect Care: None marital status: Single Current Living Situation: Alone Other Information That Helps Us Care for You: No Feels Safe at Home: Yes Safety Concerns: Feels Safe At This Time Assistive Devices: None Physical Exam 2 Physical Exam: Gen.: No acute distress. Somnolent but able to carry on conversation. Easily arousable. HEENT: Anicteric sclera. Neck: Very thick neck. Cardiac: PMI was nonpalpable. No ventricular heave. Regular. Normal S1-S2. No murmurs, rubs, or gallops. Pulmonary: Clear to auscultation bilaterally without wheezes, rales, or rhonchi. Abdomen: Soft, nontender, nondistended, with normoactive bowel sounds. No bruits noted. Extremities: 2+ right radial pulse. Distal left upper extremity is wrapped. 2+ posterior tibialis pulses bilaterally. Trace bilateral lower extremity edema. No cyanosis. Psychiatric: Affect appears appropriate. Results & Data ([facility]) Vital Signs (Past 12 Hours) Vital Signs Temp Pulse Pulse Resp BP Pulse Ox 03/01/20 12:30 37.7 C H 03/01/20 11:30 39.6 C H 115 H 24 128/64 96 03/01/20 08:00 112 H 03/01/20 07:30 36.9 C 76 18 147/61 H 94 03/01/20 03:27 37.4 C 96 H 18 105/70 90 Laboratory Results Laboratory Results - last 24 hr 02/29/20 02/29/20 02/29/20 19:45 19:45 19:45 WBC 6.77 RBC 2.98 L Hgb 10.6 L POC Hgb Hct 31.7 L POC Hct MCV 106.4 H MCH 35.6 H MCHC 33.4 RDW Std Deviation 57.9 H RDW Coeff of Elvira 15.0 H Plt Count 145 MPV 10.4 Immature Gran % (Auto) 3.8 Neut % (Auto) 79.1 Lymph % (Auto) 10.2 Gregg % (Auto) 6.5 Eos % (Auto) 0.0 Baso % (Auto) 0.4 Neut # (Auto) 5.35 Lymph # (Auto) 0.69 L Gregg # (Auto) 0.44 Eos # (Auto) 0.00 Baso # (Auto) 0.03 Immature Gran # (Auto) 0.26 H Absolute Nucleated RBC 0.06 H Nucleated RBC % (auto) 0.9 Platelet Estimate PT 12.3 H INR 1.2 H APTT 25.5 PTT Ratio 0.9 POC Sodium Sodium 135 L POC Potassium Potassium 3.1 L POC Chloride Chloride 103 Carbon Dioxide 21 POC Total CO2 Anion Gap 11.0 POC Anion Gap POC BUN BUN 21 H Creatinine 2.41 H POC Creatinine Est Cr Clr Drug Dosing Not Reportable Est GFR ( Amer) 32.1 Est GFR (Non-Af Amer) 27.7 BUN/Creatinine Ratio 8.7 L Glucose 201 H POC Glucose POC Glucose (other) Estimat Average Glucose Hemoglobin A1c Lactate Uric Acid Calcium 8.9 POC Ioniz Calcium Terrell Phosphorus Magnesium 2.4 Total Bilirubin 1.9 H Direct Bilirubin AST 374 H ALT 85 H Alkaline Phosphatase 65 Lactate Dehydrogenase Total Creatine Kinase 58755 H Troponin I 0.885 H* Total Protein 9.2 H Albumin 2.9 L Globulin 6.3 H Albumin/Globulin Ratio 0.5 L Procalcitonin Urine Color Urine Appearance Urine pH Ur Specific [place] Urine Protein Urine Glucose (UA) Urine Ketones Urine Blood Urine Nitrite Urine Bilirubin Urine Urobilinogen Ur Leukocyte Esterase Urine WBC (Auto) Urine RBC (Auto) U Hyaline Cast (Auto) U Epithel Cells (Auto) Urine Bacteria (Auto) Ur Renal Epithelial Cell Granular Casts Nasal Screen MRSA (PCR) Random Vancomycin COVID-19 Eval Order COVID-19 PCR Hepatitis C Ab Screen Influ A Molecular Assay Influ B Molecular Assay 02/29/20 02/29/20 02/29/20 19:45 19:54 20:01 WBC RBC Hgb POC Hgb 11.2 L Hct POC Hct 33 L MCV MCH MCHC RDW Std Deviation RDW Coeff of Elvira Plt Count MPV Immature Gran % (Auto) Neut % (Auto) Lymph % (Auto) Gregg % (Auto) Eos % (Auto) Baso % (Auto) Neut # (Auto) Lymph # (Auto) Gregg # (Auto) Eos # (Auto) Baso # (Auto) Immature Gran # (Auto) Absolute Nucleated RBC Nucleated RBC % (auto) Platelet Estimate PT INR APTT PTT Ratio POC Sodium 137 Sodium POC Potassium 3.1 L Potassium POC Chloride 103 Chloride Carbon Dioxide POC Total CO2 18 L Anion Gap POC Anion Gap 21.0 POC BUN 21 H BUN Creatinine POC Creatinine 2.2 H Est Cr Clr Drug Dosing Est GFR ( Amer) Est GFR (Non-Af Amer) BUN/Creatinine Ratio Glucose POC Glucose POC Glucose (other) 200 H Estimat Average Glucose Hemoglobin A1c Lactate 3.6 H* Uric Acid Calcium POC Ioniz Calcium Terrell 1.08 L Phosphorus Magnesium Total Bilirubin Direct Bilirubin AST ALT Alkaline Phosphatase Lactate Dehydrogenase Total Creatine Kinase Troponin I Total Protein Albumin Globulin Albumin/Globulin Ratio Procalcitonin 2.27 H Urine Color Urine Appearance Urine pH Ur Specific [place] Urine Protein Urine Glucose (UA) Urine Ketones Urine Blood Urine Nitrite Urine Bilirubin Urine Urobilinogen Ur Leukocyte Esterase Urine WBC (Auto) Urine RBC (Auto) U Hyaline Cast (Auto) U Epithel Cells (Auto) Urine Bacteria (Auto) Ur Renal Epithelial Cell Granular Casts Nasal Screen MRSA (PCR) Random Vancomycin COVID-19 Eval Order COVID-19 PCR Hepatitis C Ab Screen Influ A Molecular Assay Influ B Molecular Assay 02/29/20 02/29/20 02/29/20 20:22 20:22 20:22 WBC RBC Hgb POC Hgb Hct POC Hct MCV MCH MCHC RDW Std Deviation RDW Coeff of Elvira Plt Count MPV Immature Gran % (Auto) Neut % (Auto) Lymph % (Auto) Gregg % (Auto) Eos % (Auto) Baso % (Auto) Neut # (Auto) Lymph # (Auto) Gregg # (Auto) Eos # (Auto) Baso # (Auto) Immature Gran # (Auto) Absolute Nucleated RBC Nucleated RBC % (auto) Platelet Estimate PT INR APTT PTT Ratio POC Sodium Sodium POC Potassium Potassium POC Chloride Chloride Carbon Dioxide POC Total CO2 Anion Gap POC Anion Gap POC BUN BUN Creatinine POC Creatinine Est Cr Clr Drug Dosing Est GFR ( Amer) Est GFR (Non-Af Amer) BUN/Creatinine Ratio Glucose POC Glucose POC Glucose (other) Estimat Average Glucose Hemoglobin A1c Lactate Uric Acid Calcium POC Ioniz Calcium Terrell Phosphorus Magnesium Total Bilirubin Direct Bilirubin AST ALT Alkaline Phosphatase Lactate Dehydrogenase Total Creatine Kinase Troponin I Total Protein Albumin Globulin Albumin/Globulin Ratio Procalcitonin Urine Color Urine Appearance Urine pH Ur Specific [place] Urine Protein Urine Glucose (UA) Urine Ketones Urine Blood Urine Nitrite Urine Bilirubin Urine Urobilinogen Ur Leukocyte Esterase Urine WBC (Auto) Urine RBC (Auto) U Hyaline Cast (Auto) U Epithel Cells (Auto) Urine Bacteria (Auto) Ur Renal Epithelial Cell Granular Casts Nasal Screen MRSA (PCR) Random Vancomycin COVID-19 Eval Order Covid19 Done at [facility] COVID-19 PCR NEGATIVE Hepatitis C Ab Screen Influ A Molecular Assay Negative Influ B Molecular Assay Negative 02/29/20 02/29/20 03/01/20 21:48 21:48 01:20 WBC RBC Hgb POC Hgb Hct POC Hct MCV MCH MCHC RDW Std Deviation RDW Coeff of Elvira Plt Count MPV Immature Gran % (Auto) Neut % (Auto) Lymph % (Auto) Gregg % (Auto) Eos % (Auto) Baso % (Auto) Neut # (Auto) Lymph # (Auto) Gregg # (Auto) Eos # (Auto) Baso # (Auto) Immature Gran # (Auto) Absolute Nucleated RBC Nucleated RBC % (auto) Platelet Estimate PT INR APTT PTT Ratio POC Sodium Sodium POC Potassium Potassium POC Chloride Chloride Carbon Dioxide POC Total CO2 Anion Gap POC Anion Gap POC BUN BUN Creatinine POC Creatinine Est Cr Clr Drug Dosing Est GFR ( Amer) Est GFR (Non-Af Amer) BUN/Creatinine Ratio Glucose POC Glucose 147 H POC Glucose (other) Estimat Average Glucose Hemoglobin A1c Lactate 1.9 Uric Acid Calcium POC Ioniz Calcium Terrell Phosphorus Magnesium Total Bilirubin Direct Bilirubin AST ALT Alkaline Phosphatase Lactate Dehydrogenase Total Creatine Kinase Troponin I Total Protein Albumin Globulin Albumin/Globulin Ratio Procalcitonin Urine Color [place] Urine Appearance Turbid A Urine pH 5.0 Ur Specific [place] 1.025 Urine Protein 3+ H Urine Glucose (UA) Trace H Urine Ketones 2+ H Urine Blood 3+ H Urine Nitrite Negative Urine Bilirubin Negative Urine Urobilinogen Negative Ur Leukocyte Esterase 1+ H Urine WBC (Auto) 10-30 H Urine RBC (Auto) 10-30 H U Hyaline Cast (Auto) >30 H U Epithel Cells (Auto) >30 H Urine Bacteria (Auto) Negative Ur Renal Epithelial Cell 0-5 Granular Casts >30 H Nasal Screen MRSA (PCR) Random Vancomycin COVID-19 Eval Order COVID-19 PCR Hepatitis C Ab Screen Influ A Molecular Assay Influ B Molecular Assay 03/01/20 03/01/20 03/01/20 07:42 07:58 07:58 WBC 2.85 L RBC 2.40 L Hgb 8.3 L POC Hgb Hct 25.7 L POC Hct MCV 107.1 H MCH 34.6 H MCHC 32.3 RDW Std Deviation 58.6 H RDW Coeff of Elvira 15.0 H Plt Count 97 L MPV 9.9 Immature Gran % (Auto) 1.8 Neut % (Auto) 84.1 Lymph % (Auto) 11.9 Gregg % (Auto) 1.8 Eos % (Auto) 0.0 Baso % (Auto) 0.4 Neut # (Auto) 2.40 Lymph # (Auto) 0.34 L Gregg # (Auto) 0.05 L Eos # (Auto) 0.00 Baso # (Auto) 0.01 Immature Gran # (Auto) 0.05 H Absolute Nucleated RBC 0.02 H Nucleated RBC % (auto) 0.6 Platelet Estimate Decreased L PT INR APTT PTT Ratio POC Sodium Sodium 142 D POC Potassium Potassium 3.1 L POC Chloride Chloride 115 H Carbon Dioxide 21 POC Total CO2 Anion Gap 6.0 POC Anion Gap POC BUN BUN 17 Creatinine 1.65 H D POC Creatinine Est Cr Clr Drug Dosing 54.4 Est GFR ( Amer) 50.8 Est GFR (Non-Af Amer) 43.8 BUN/Creatinine Ratio 10.3 Glucose 98 POC Glucose 108 H POC Glucose (other) Estimat Average Glucose Hemoglobin A1c Lactate Uric Acid 4.7 Calcium 6.6 L D POC Ioniz Calcium Terrell Phosphorus 2.1 L Magnesium Total Bilirubin 1.1 H Direct Bilirubin 0.5 H AST 528 H ALT 107 H Alkaline Phosphatase 45 Lactate Dehydrogenase Total Creatine Kinase 99434 H Troponin I 1.160 H* Total Protein 6.7 D Albumin 1.9 L Globulin Albumin/Globulin Ratio Procalcitonin Urine Color Urine Appearance Urine pH Ur Specific [place] Urine Protein Urine Glucose (UA) Urine Ketones Urine Blood Urine Nitrite Urine Bilirubin Urine Urobilinogen Ur Leukocyte Esterase Urine WBC (Auto) Urine RBC (Auto) U Hyaline Cast (Auto) U Epithel Cells (Auto) Urine Bacteria (Auto) Ur Renal Epithelial Cell Granular Casts Nasal Screen MRSA (PCR) Random Vancomycin COVID-19 Eval Order COVID-19 PCR Hepatitis C Ab Screen Influ A Molecular Assay Influ B Molecular Assay 03/01/20 03/01/20 03/01/20 07:58 07:58 07:58 WBC RBC Hgb POC Hgb Hct POC Hct MCV MCH MCHC RDW Std Deviation RDW Coeff of Elvira Plt Count MPV Immature Gran % (Auto) Neut % (Auto) Lymph % (Auto) Gregg % (Auto) Eos % (Auto) Baso % (Auto) Neut # (Auto) Lymph # (Auto) Gregg # (Auto) Eos # (Auto) Baso # (Auto) Immature Gran # (Auto) Absolute Nucleated RBC Nucleated RBC % (auto) Platelet Estimate PT INR APTT PTT Ratio POC Sodium Sodium POC Potassium Potassium POC Chloride Chloride Carbon Dioxide POC Total CO2 Anion Gap POC Anion Gap POC BUN BUN Creatinine POC Creatinine Est Cr Clr Drug Dosing Est GFR ( Amer) Est GFR (Non-Af Amer) BUN/Creatinine Ratio Glucose POC Glucose POC Glucose (other) Estimat Average Glucose 137 Hemoglobin A1c 6.4 H Lactate Uric Acid Calcium POC Ioniz Calcium [place] Phosphorus Magnesium Total Bilirubin Direct Bilirubin AST ALT Alkaline Phosphatase Lactate Dehydrogenase 1010 H Total Creatine Kinase Troponin I Total Protein Albumin Globulin Albumin/Globulin Ratio Procalcitonin Urine Color Urine Appearance Urine pH Ur Specific [place] Urine Protein Urine Glucose (UA) Urine Ketones Urine Blood Urine Nitrite Urine Bilirubin Urine Urobilinogen Ur Leukocyte Esterase Urine WBC (Auto) Urine RBC (Auto) U Hyaline Cast (Auto) U Epithel Cells (Auto) Urine Bacteria (Auto) Ur Renal Epithelial Cell Granular Casts Nasal Screen MRSA (PCR) Random Vancomycin COVID-19 Eval Order COVID-19 PCR Hepatitis C Ab Screen Neg Influ A Molecular Assay Influ B Molecular Assay 03/01/20 03/01/20 03/01/20 07:58 11:45 12:35 WBC RBC Hgb POC Hgb Hct POC Hct MCV MCH MCHC RDW Std Deviation RDW Coeff of Elvira Plt Count MPV Immature Gran % (Auto) Neut % (Auto) Lymph % (Auto) Gregg % (Auto) Eos % (Auto) Baso % (Auto) Neut # (Auto) Lymph # (Auto) Gregg # (Auto) Eos # (Auto) Baso # (Auto) Immature Gran # (Auto) Absolute Nucleated RBC Nucleated RBC % (auto) Platelet Estimate PT INR APTT PTT Ratio POC Sodium Sodium 141 POC Potassium Potassium 3.0 L POC Chloride Chloride 114 H Carbon Dioxide 23 POC Total CO2 Anion Gap 4.0 POC Anion Gap POC BUN BUN 15 Creatinine 1.70 H POC Creatinine Est Cr Clr Drug Dosing 52.8 Est GFR ( Amer) 49.0 Est GFR (Non-Af Amer) 42.3 BUN/Creatinine Ratio 8.9 L Glucose 106 H POC Glucose 155 H POC Glucose (other) Estimat Average Glucose Hemoglobin A1c Lactate Uric Acid Calcium 6.8 L POC Ioniz Calcium Terrell Phosphorus 0.9 L* D Magnesium 2.0 Total Bilirubin 1.1 H Direct Bilirubin AST 524 H ALT 104 H Alkaline Phosphatase 45 Lactate Dehydrogenase Total Creatine Kinase Troponin I 1.010 H* Total Protein 6.6 Albumin 1.8 L Globulin 4.8 H Albumin/Globulin Ratio 0.4 L Procalcitonin Urine Color Urine Appearance Urine pH Ur Specific [place] Urine Protein Urine Glucose (UA) Urine Ketones Urine Blood Urine Nitrite Urine Bilirubin Urine Urobilinogen Ur Leukocyte Esterase Urine WBC (Auto) Urine RBC (Auto) U Hyaline Cast (Auto) U Epithel Cells (Auto) Urine Bacteria (Auto) Ur Renal Epithelial Cell Granular Casts Nasal Screen MRSA (PCR) Random Vancomycin 18.8 COVID-19 Eval Order COVID-19 PCR Hepatitis C Ab Screen Influ A Molecular Assay Influ B Molecular Assay 03/01/20 Unknown WBC RBC Hgb POC Hgb Hct POC Hct MCV MCH MCHC RDW Std Deviation RDW Coeff of Elvira Plt Count MPV Immature Gran % (Auto) Neut % (Auto) Lymph % (Auto) Gregg % (Auto) Eos % (Auto) Baso % (Auto) Neut # (Auto) Lymph # (Auto) Gregg # (Auto) Eos # (Auto) Baso # (Auto) Immature Gran # (Auto) Absolute Nucleated RBC Nucleated RBC % (auto) Platelet Estimate PT INR APTT PTT Ratio POC Sodium Sodium POC Potassium Potassium POC Chloride Chloride Carbon Dioxide POC Total CO2 Anion Gap POC Anion Gap POC BUN BUN Creatinine POC Creatinine Est Cr Clr Drug Dosing Est GFR ( Amer) Est GFR (Non-Af Amer) BUN/Creatinine Ratio Glucose POC Glucose POC Glucose (other) Estimat Average Glucose Hemoglobin A1c Lactate Uric Acid Calcium POC Ioniz Calcium Terrell Phosphorus Magnesium Total Bilirubin Direct Bilirubin AST ALT Alkaline Phosphatase Lactate Dehydrogenase Total Creatine Kinase Troponin I Total Protein Albumin Globulin Albumin/Globulin Ratio Procalcitonin Urine Color Urine Appearance Urine pH Ur Specific [place] Urine Protein Urine Glucose (UA) Urine Ketones Urine Blood Urine Nitrite Urine Bilirubin Urine Urobilinogen Ur Leukocyte Esterase Urine WBC (Auto) Urine RBC (Auto) U Hyaline Cast (Auto) U Epithel Cells (Auto) Urine Bacteria (Auto) Ur Renal Epithelial Cell Granular Casts Nasal Screen MRSA (PCR) Negative Random Vancomycin COVID-19 Eval Order COVID-19 PCR Hepatitis C Ab Screen Influ A Molecular Assay Influ B Molecular Assay Diagnostic Findings Telemetry personally reviewed: Sinus rhythm. Rhythm was AFib with RVR from approximately 1:33 a.m. to 3:04 a.m. and then converted to sinus rhythm without significant pause. Echo 03/01/2020: Normal LV systolic function and wall motion. No significant valvular abnormalities. ECG 02/29/2020 at 7:29 p.m.: Sinus tachycardia with frequent PACs and atrial run at 151 beats per minute. Inferolateral ST/T-wave abnormality. Chest/abdomen/pelvis CT 02/29/2020: No acute process. Innumerable scattered lytic lesions seen throughout the visualized osseous structures. New, small extrapleural soft tissue nodule within the right posterior hemithorax anterior to the right lower ribs. Medications Administered Current Inpatient Medications Acyclovir (Acyclovir 400 Mg Tab) 400 mg PO BID MIRLANDE Stop: 03/31/20 08:59 Last Admin: 03/01/20 08:36 Dose: 400 mg Documented by: Aspirin (Aspirin 81 Mg Ectab) 81 mg PO QAM MIRLANDE Stop: 03/31/20 08:59 Last Admin: 03/01/20 08:37 Dose: 81 mg Documented by: Cyanocobalamin (Cyanocobalamin 500 Mcg Tablet (Vitamin B-12)) 1,000 mcg PO QAM MIRLANDE Stop: 03/31/20 08:59 Last Admin: 03/01/20 08:37 Dose: 1,000 mcg Documented by: Dextrose (Dextrose 50% 50 Ml Syringe) 25 - 50 ml IV UD PRN; Protocol PRN Reason: Hypoglycemia Protocol Stop: 03/31/20 00:29 Docusate Sodium (Docusate Sodium 100 Mg Cap) 100 mg PO DAILY PRN PRN Reason: Constipation Stop: 03/31/20 00:29 Doxepin HCl (Doxepin Hcl 50 Mg Capsule) 100 mg PO HS MIRLANDE Stop: 03/31/20 20:59 Fluticasone Propionate (Fluticasone Propionate Na Spr 16 Gm Btl) 2 sprays NA DAILY MIRLANDE Stop: 03/31/20 08:59 Last Admin: 03/01/20 08:38 Dose: Not Given Documented by: Gabapentin (Gabapentin 100 Mg Cap) 200 mg PO TID MIRLANDE Stop: 03/31/20 08:59 Last Admin: 03/01/20 14:19 Dose: 200 mg Documented by: Glucagon (Glucagon For Inj 1 Mg Vial) 1 mg SQ UD PRN; Protocol PRN Reason: Hypoglycemia Protocol Stop: 03/31/20 00:29 Glucose (Glucose 10 Tabs/Tube) 4 - 8 tabs PO UD PRN; Protocol PRN Reason: Hypoglycemia Protocol Stop: 03/31/20 00:29 Glucose (Glucose 40% Gel 15 Gm Tube) 15 - 30 gm PO UD PRN; Protocol PRN Reason: Hypoglycemia Protocol Stop: 03/31/20 00:29 Heparin Sodium (Porcine) (Heparin 100 Unit/Ml 5ml Flush) 5 ml FLUSH PRN PRN PRN Reason: Flush Stop: 03/31/20 00:20 Heparin Sodium (Porcine) (Heparin Sod 5,000 Unit/0.5 Ml Vial) 7,500 units SQ Q8 MIRLANDE Stop: 03/31/20 05:59 Last Admin: 03/01/20 14:19 Dose: 7,500 units Documented by: Vancomycin HCl 1,000 mg/ (Sodium Chloride) 270 mls @ 200 mls/hr IV Q12H [facility] Stop: 03/08/20 09:59 Last Infusion: 03/01/20 13:09 Dose: Infused Documented by: Piperacillin Sod/Tazobactam (Sod 3.375 gm/ Dextrose) 115 mls @ 28.75 mls/hr IV Q8H [facility]; Protocol Stop: 03/08/20 17:59 Sodium Chloride (Nss 1000ml) 1,000 mls @ 150 mls/hr IV .Q6H40M [facility] Stop: 03/31/20 10:59 Last Infusion: 03/01/20 14:02 Dose: 150 mls/hr Documented by: Acetaminophen (Ofirmev) 1,000 mg in 100 mls @ 400 mls/hr IV Q8H PRN PRN Reason: fever or pain Stop: 03/04/20 11:21 Last Infusion: 03/01/20 12:38 Dose: Infused Documented by: Potassium Phosphate 24 mmol/ (Sodium Chloride) 508 mls @ 88 mls/hr IV ONE ONE Stop: 03/01/20 20:01 Last Admin: 03/01/20 15:20 Dose: 88 mls/hr Documented by: Insulin Aspart (Insulin Aspart 100 Units/Ml 3 Ml Pen) 0 units SC ACHS MIRLANDE Stop: 03/31/20 00:59 Last Admin: 03/01/20 11:53 Dose: Not Given Documented by: Metoprolol Tartrate (Metoprolol Tartrate 50 Mg Tab) 50 mg PO TID MIRLANDE Stop: 03/31/20 00:29 Last Admin: 03/01/20 14:19 Dose: 50 mg Documented by: Miscellaneous (Carbohydrates For Hypoglycemia ) 15 - 30 gm PO UD PRN PRN Reason: Hypoglycemia Protocol Stop: 03/31/20 00:29 Miscellaneous Information (Vancomycin Consult Active) 1 ea N/A UD PRN PRN Reason: Consult Stop: 03/31/20 00:29 Miscellaneous Information (Piperacill/Tazobac Consult Active) 1 ea N/A UD PRN PRN Reason: Consult Stop: 03/31/20 09:29 Pantoprazole Sodium (Pantoprazole 40 Mg Tab) 40 mg PO BID MIRLANDE Stop: 03/31/20 08:59 Last Admin: 03/01/20 08:37 Dose: 40 mg Documented by: PG Care Time/CCT Total # of Minutes Spent Total Time Spent with Patient: Total time spent is greater than 50% in coordination of care (as documented) at patient's floor/unit and/or counseling patient: Coding Level of Care Code 48438 Inpt Consult Level 4 Diagnoses Paroxysmal atrial fibrillation I48.0 Elevated troponin R77.8 Sepsis A41.9; R65.20; G93.40 Sepsis acute organ dysfunction status: with acute organ dysfunction Sepsis type: sepsis due to unspecified organism Severe sepsis acute organ dysfunction type: encephalopathy Severe sepsis shock status: without septic shock (1) Sepsis Sepsis acute organ dysfunction status: with acute organ dysfunction Sepsis type: sepsis due to unspecified organism Severe sepsis acute organ dysfunction type: encephalopathy Severe sepsis shock status: without septic shock Qualified Code(s): A41.9 - Sepsis, unspecified organism; R65.20 - Severe sepsis without septic shock; G93.40 - Encephalopathy, unspecified
[2020-03-01] MEDS: PIPERACILLIN/TAZOBACTAM 3.375 GM in DEXTROSE 5% 100 ML IV SCH (17:37)
[2020-03-01 20:31] LABS: Calcium 6.5 mg/dl (8.5-10.1); Creatinine Clr Calc Pharmacy 52.8 ml/min; Est GFR (Non-African American) 42.3; Potassium 3.4 mmol/L (3.5-5.1)
[2020-03-01 20:33] LABS: Phosphorus 2.3 mg/dl (2.5-4.9)
[2020-03-01] MEDS ORDERED: DOXEPIN HCL 50 MG CAPSULE PO SCH (21:00)
[2020-03-01] MEDS ORDERED: POTASSIUM CHLORIDE / WTR 10 MEQ/100 ML PLCT IV SCH (21:00)
[2020-03-01] MEDS ORDERED: METOPROLOL TARTRATE 1 MG/ML VIAL IV ONE (21:03)
[2020-03-01] MEDS ORDERED: POTASSIUM CHLORIDE CRTAB 20 MEQ TABCR PO STA (21:10)
[2020-03-01] MEDS ORDERED: POTASSIUM PHOSPHATE 21 MMOL in SODIUM CHLORIDE 0.9% 500 ML IV ONE (21:15)
[2020-03-01] MEDS ORDERED: CALCIUM GLUCONATE 10% 1,000 MG in SODIUM CHLORIDE 0.9% 50 ML IV STA (23:03)
--- NOTE | 2020-03-02 00:17 | Communication Note ---
Date of Service: March 02, 2020 Notified overnight that pt was in a fib with rvr. HR in 180s. Lopressor 5mg IV was ordered. His electrolytes (K+ and phos were optimized). HR eventually decreased to the one-teens. On exam, he had wheezing and a stat portable chest XR was ordered. Showed further definition of his RUPINDER pneumonia, no signs of fluid overload. Given pt was febrile later in the night and with this pt's cancer Hx and now pancytopenia, in discussion with Dr. Guillermo, fungal blood cultures were ordered. Resident Activity Tracking Resident Involvement: Manager Secondary Coverage Note Care Provided: Adult Hospital Medicine
[2020-03-02] MEDS: PIPERACILLIN/TAZOBACTAM 3.375 GM in DEXTROSE 5% 100 ML IV SCH ×3 (01:20→17:20)
[2020-03-02] MEDS ORDERED: KETOROLAC TROMETHAMINE 15 MG/ML VIAL IV ONE (02:56)
[2020-03-02] MEDS: SODIUM CHLORIDE 0.9% 1000ML 1,000 ML IV SCH ×2 (04:09→14:18)
[2020-03-02 06:15] LABS: Hematocrit (blood only) 24.7 % (42-52); Hemoglobin 7.9 g/dL (14.0-18.0); Mean Corpuscular Hemoglobin 34.6 pg (25-34); Mean Corpuscular Volume 108.3 fL (80-100); Mean Platelet Volume 9.9 fL (7.4-10.4); Platelet Count 76 K/uL (130-400); RDW Coefficient of Variation 15.3 % (11.5-14.5); RDW Standard Deviation 60.3 fL (36.4-46.3); Red Blood Count 2.28 M/uL (4.7-6.1); White Blood Count 1.68 K/uL (4.8-10.8)
[2020-03-02] MEDS: HEPARIN SOD 5,000 UNIT/0.5 ML VIAL SQ SCH (06:23)
[2020-03-02 06:46] LABS: Albumin Level 1.6 gm/dl (3.4-5.0); BUN Creatinine Ratio 9.2 (10-20); Calcium 6.6 mg/dl (8.5-10.1); Creatinine Clr Calc Pharmacy 46.9 ml/min; Est GFR (Non-African American) 35.4; Magnesium 1.8 mg/dl (1.8-2.4); Potassium 3.5 mmol/L (3.5-5.1)
[2020-03-02 07:17] LABS: Bilirubin Direct 0.5 mg/dl (0-0.2); Bilirubin,Total 0.9 mg/dl (0.2-1); Phosphorus 3.8 mg/dl (2.5-4.9); Total Protein 6.1 gm/dl (6.4-8.2)
[2020-03-02 07:22] LABS: Basophils # (auto) 0.01 K/uL (0-0.2); Basophils % (auto) 0.6 %; Immature Granulocytes # (auto) 0.12 K/uL (0.00-0.02); Immature Granulocytes % (auto) 7.1 %; Lymphocytes # (auto) 0.31 K/uL (1.2-3.4); Lymphocytes % (auto) 18.5 %; Macrocytosis Present; Monocytes # (auto) 0.03 K/uL (0.11-0.59); Monocytes % (auto) 1.8 %; Neutrophils # (auto) 1.21 K/uL (1.4-6.5); Ovalocytes 1+; Tear Drop Cells 1+
[2020-03-02] MEDS ORDERED: CALCIUM GLUCONATE 10% 1,000 MG in SODIUM CHLORIDE 0.9% 50 ML IV ONE (08:15)
[2020-03-02] MEDS: INSULIN ASPART 100 UNITS/ML 3 ML PEN SC SCH ×4 (08:27→21:11)
[2020-03-02] MEDS: METOPROLOL TARTRATE 50 MG TAB PO SCH ×3 (08:29→21:13)
[2020-03-02] MEDS: GABAPENTIN 100 MG CAP PO SCH (08:30)
[2020-03-02] MEDS: ASPIRIN 81 MG ECTAB PO SCH (08:30)
[2020-03-02] MEDS: PANTOprazole 40 MG TAB PO SCH ×2 (08:30→21:14)
[2020-03-02] MEDS: CYANOCOBALAMIN 500 MCG TABLET (VITAMIN B-12) PO SCH (08:30)
[2020-03-02] MEDS: FLUTICASONE PROPIONATE NA SPR 16 GM BTL SCH (08:34)
[2020-03-02] MEDS ORDERED: METOPROLOL TARTRATE 1 MG/ML VIAL IV PRN (08:54)
[2020-03-02] MEDS: ACETAMINOPHEN 1,000 MG/100 ML VIAL IV PRN ×2 (08:59→16:57)
[2020-03-02] MEDS ORDERED: AZITHROMYCIN 500 MG in DEXTROSE 5% 250 ML IV ONE (09:00)
[2020-03-02] MEDS ORDERED: CASPOFUNGIN 70 MG in SODIUM CHLORIDE 0.9% 250 ML IV ONE (09:00)
[2020-03-02] MEDS: ACYCLOVIR 400 MG TAB PO SCH ×2 (09:20→21:13)
--- NOTE | 2020-03-02 09:31 | XRay Report ---
XR chest 1V portable CLINICAL HISTORY: hypoxia COMPARISON STUDY: Chest CT February 29, 2020. Chest radiograph March 01, 2020. FINDINGS: Left subclavian Zarqaq-y-Hoky is in place. There is no pneumothorax or pleural effusion. In numerable lytic lesions consistent with multiple myeloma are better depicted on chest CT. Dense left upper lobe consolidation has progressed. Right lung is clear. There are multiple old bilateral rib fr actures. Cardiomediastinal silhouette is stable. IMPRESSION: Progression of dense left upper lung consolidation suggestive of pneumonia. Post treatme nt radiographs to ensure resolution are recommended. ACT 112: Negative or not required by law. Electronically signed by: Zack Turcios M.D. 03/02/2020 9:30 AM
--- NOTE | 2020-03-02 09:37 | XRay Report ---
XR shoulder LT min 2V routine CLINICAL HISTORY: Fall. Multiple myeloma. COMPARISON: Left shoulder radiographs August 28, 2015. FINDINGS: Left upper lobe consolidation is better depicted on the chest radiograph. A left subclavia n [id number] is also better shown on that exam. Numerous lytic skeletal lesions are noted on this exam. These are better depicted on recent CT. No pathologic fracture is likely that 5 within the left shoulder. Alignment of the left acromioclavicular and glenohumeral joints is anatomic. 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 IMPRESSION: 1. Multiple lytic skeletal lesions, better depicted on recent CT. No pathologic fracture. 2. Left upper lobe pneumonia. ACT 112: Negative or not required by law. Electronically signed by: Zack Turcios M.D. 03/02/2020 9:35 AM
--- NOTE | 2020-03-02 09:39 | XRay Report ---
XR humerus LT 2V CLINICAL HISTORY: fall,pain COMPARISON: Left shoulder radiographs August 28, 2015. FINDINGS: Numerous small lytic lesions within the left humerus are noted consistent with known multi ple myeloma. No pathologic fracture is noted. Alignment of left shoulder and elbow is anatomic. IMPRESSION: Numerous lytic lesions within the left humerus consistent with multiple myeloma. No patho logic fracture. ACT 112: Negative or not required by law. Electronically signed by: Zack Turcios M.D. 03/02/2020 9:37 AM
--- NOTE | 2020-03-02 09:41 | XRay Report ---
XR forearm LT 2V CLINICAL HISTORY: fall,swelling COMPARISON: None FINDINGS: No acute fracture of the left radius or ulna is identified. There is no evidence for osteo myelitis. Note is made of a small 2 mm metallic density which projects over the anterior soft tissues of the left mid forearm. No additional suspected radiopaque foreign bodies are identified. IV is inc identally noted. There is left forearm soft tissue swelling. IMPRESSION: 1. No fracture or evidence for ostomy myelitis within the left radius or ulna. 2. 2 mm metallic density which projects over the anterior soft tissues of the left mid forearm. This may reflect a tiny metallic foreign body. 3. Left arm soft tissue swelling ACT 112: Negative or not required by law. Electronically signed by: Zack Turcios M.D. 03/02/2020 9:40 AM
--- NOTE | 2020-03-02 10:08 | XRay Report ---
XR chest 1V portable CLINICAL HISTORY: new wheezing, r/o pulm edema COMPARISON STUDY: Chest radiograph and chest CT February 29, 2020. FINDINGS: Left subclavian Buqkzb-[id number]-Haxr is in place. Dense left upper lobe consolidation has signific antly increased. There is no pneumothorax or pleural effusion. There are old bilateral rib fractures. Numerous lytic lesions consistent with multiple myeloma are better depicted on the chest CT. Cardiom ediastinal silhouette is stable. No evidence for pulmonary edema. IMPRESSION: Significant progression of dense left upper lobe consolidation consistent with pneumonia. ACT 112: Negative or not required by law. Electronically signed by: Zack Turcios M.D. 03/02/2020 10:07 AM
[2020-03-02] MEDS: VANCOMYCIN HCL 1,000 MG in SODIUM CHLORIDE 0.9% 250 ML IV SCH (10:27)
[2020-03-02] MEDS ORDERED: LEVALBUTEROL HCL 0.63 MG/3 ML NEB NEB PRN (10:39)
--- NOTE | 2020-03-02 10:40 | Hospitalist Progress Note ---
Date of Service March 02, 2020 Assessment & Plan (1) Sepsis: Severe sepsis This patient is a 64yo C male found down at home x24 hours, with acute metabolic encephalopathy, lactic acidosis. Febrile with temperature of 107.8 /tachycardic/tachypneic on arrival. Found with RUPINDER PNA on chest x-ray. Procal elevated at 2.27. Flu negative, Covid negative MRSA swab negative Immunocompromised with port in place Blood cultures with 1/2 coagulase-negative Staphylococcus, repeat blood cultures no growth to date Fungal blood cultures drawn-smears negative, culture pending UA with seemingly contaminated sample, urine culture no growth Procalcitonin significantly elevated today up to 31.5 With lactic acidosis-lactate elevated at 3.6 on admission and then down to 1.9 Continues to spike significant fevers despite being on antibiotics for over 24 hours this morning. He is not neutropenic Added on azithromycin x1 dose, but then converted to doxycycline to avoid prolonged QT after starting on IV amiodarone. Needs atypical coverage; sent out for Legionella. Added on IV caspofungin-will follow LFTs -Check Fungitell although could be falsely elevated in the setting of Zosyn use -Continue IV Zosyn for pneumonia -Discontinue vancomycin given MRSA swab is negative and has 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 -Blood pressures were a little soft when he had rapid atrial fibrillation as below-transferred down to ICU in case of need for vasopressors on 03/02 -Has received copious IV fluid resuscitation for rhabdomyolysis and now third spacing due to severe hypoalbuminemia-has developed anasarca overnight- discontinue IV fluids and may need IV Bumex tomorrow -Tylenol as needed for fevers, on a cooling blanket (2) Pneumonia: Chest x-ray with RUPINDER socked in PNA-the source of his sepsis -Follow cultures-blood, sputum, fungal Continue antibiotics as above Follow chest x-ray -Supplemental O2 to keep pulse ox greater than 92% -Start Mucinex -Start Xopenex nebs as needed (3) Atrial fibrillation with rapid ventricular response: Paroxysmal atrial fibrillation with heart rates at times to the 190s Rates only improved to the 150s with IV Lopressor Blood pressure became a bit soft today-started on amiodarone with bolus and drip Spontaneously converted twice on 03/02 -Continue Metoprolol 50mg po TID and consider titration upward as needed [id number] score is 1 -Appreciate cardiology consultation-recommends against anticoagulation at this time given higher risk for bleeding given multiple myeloma, anemia and worsening thrombocytopenia (4) CHLOÉ (acute kidney injury): With creatinine elevated at 2.4 on admission and initially improved, but now worse again to 1.98 Urinalysis on admission with granular casts,'s most likely secondary to ATN from severe sepsis He has decreased effective arterial volume secondary to hypoalbuminemia, developing anasarca from copious IV fluid administration for rhabdomyolysis Also with nonanion gap metabolic acidosis He is making urine Appreciate nephrology consultation-plan for Bumex 2 mg IV x1 this evening Follow CK for rhabdomyolysis (5) Rhabdomyolysis: CK >59123 on arrival, secondary to prolonged down time. CK increased after admission to 24,000 but is now decreased to 11,000 after copious IV fluids were given -IV fluids were decreased in rate the day after admission and again this morning, but then after worsening anasarca today will be discontinued completely -Friedman in place, closely monitor UOP -Follow serial CK -Monitor renal function and electrolytes and replace as needed -Appreciate nephrology consultation With edema developing more in the left upper extremity which has evidence of pressure injuries and blisters as well as developing paresthesias and some weakness of the left upper extremity. He has good pulses, motor is intact distally, sensation diminished mostly in the ulnar distribution of the left hand. Watch out for development of compartment syndrome (6) Acute respiratory failure with hypoxia: Requiring 2 L nasal cannula to keep pulse ox greater than 88% Secondary to pneumonia and sepsis Wean off oxygen as able to (7) Elevated troponin: Patient denies CP, palpitations. No EKG evidence of ischemia. With acute kidney injury and rhabdomyolysis as well as rapid atrial fibrillation all contributing to myocardial demand ischemia. Did not present with acute coronary syndrome -Troponin peaked today at 1.1 and back down again. Appreciate cardiology consultation Echocardiogram without wall motion abnormalities and with preserved EF -Continue ASA 81mg po daily but would hold if platelets less than 50 -Continue home metoprolol (8) Abnormal liver enzymes: Elevated LFTs most likely secondary to sepsis and rhabdomyolysis CT abdomen/pelvis with mild hepatic steatosis, normal gallbladder and pancreas. -Repeat LFTs in the morning -Also now on amiodarone which is most likely a short-term solution (9) Multiple myeloma in remission: Patient receiving chemotherapy with Darzalex, last dose was 01/30/2020. Follows with Dr. Potts at the [facility] -LDH is quite elevated at 1000 and Uric acid normal, do not suspect tumor lysis syndrome Continue acyclovir for prophylaxis Follow CBC With multiple lytic bone lesions diffusely on imaging (10) Hypokalemia: Replaced and resolved Follow BMP and magnesium (11) Hypophosphatemia: Severely low-replaced and resolved Follow phosphorus level (12) CKD (chronic kidney disease): Baseline creatinine is around 1.4-1.7 With CHLOÉ as above -Avoid nephrotoxins -renally dose meds when appropriate -follow BMP (13) HTN (hypertension): Blood pressures are on the low side when he has rapid atrial fibrillation, but now improved after spontaneous conversion to sinus rhythm -Continue holding home HCTZ -Continue metoprolol with hold parameters (14) Fall: Likely secondary to weakness from pneumonia and sepsis CT of the cervical spine, head CT, chest/abdomen/pelvis CT without fractures or acute findings other than PNA (15) Pancytopenia: Secondary to multiple myeloma and chemotherapy as well as sepsis, possible DIC? Follow CBC in the morning Transfuse as needed (16) Prediabetes: Hemoglobin A1c elevated at 6.4% Follow Accu-Cheks NovoLog sliding scale insulin (17) Neuropathy: -We will now hold home gabapentin, doxepin while critically ill in the ICU Thought to be secondary to chemotherapy (18) Hypoalbuminemia: Albumin severely low at 1.6, likely secondary to cancer, poor nutrition, and sepsis Follow levels Third spacing (19) Paresthesia of left arm: As above, secondary to significant edema from rhabdomyolysis Watch for development of compartment syndrome Diuresing We will elevate arm on pillow (20) GERD (gastroesophageal reflux disease): Continue PPI (21) DVT prophylaxis: Heparin SQ was held by advertising project manager due to worsening thrombocytopenia Disposition-transferred care to ICU on 03/02 Full code Guarded prognosis I spent prolonged service time on this patient. Began caring for him at 8:30 AM-9 AM, back again from 10:30 AM and came out at 11 AM. I went back into the room again at [id number] Admission and Anticipated Discharge Date Admission Date: February 29, 2020 Subjective Patient continues to spike high fevers through the night and was in rapid atrial fibrillation with rates as high as the 190s overnight for about 2 hours. He was given IV Lopressor and electrolytes were replaced. He spontaneously converted back to sinus rhythm. He again spiked a fever this morning and was back in rapid atrial fibrillation with rates in the 170s. He was given IV Lopressor and had improvement to the 130s to 150s. However, he continued for 4 5 hours in rapid A. fib and was started on IV amiodarone. His blood pressure dropped to 90 systolic and his mentation was not as good as previous. Decision was made to transfer him down to the ICU in case of need for vasopressors. He reported this morning that he was feeling better than previous. He ate and drank a little bit today. He denied any diarrhea at that time. Denied abdominal pains. Denied chest pain. He feels a little short of breath and remains on oxygen. He is not coughing at all. I discussed the case with pulmonology/critical care both in the morning regarding the patient's pneumonia and overall status, and then again in the afternoon when his blood pressures dropped and decision was made to transfer him to the ICU. I also discussed the patient's care with cardiology and pharmacist regarding antibiotic choices. I also contacted his primary oncologist who informed me that the chemotherapy he is on is Darzalex and last dose was 01/30/2020. Oncologist does not expect that his blood counts would be suppressed further at this point in time as he is over 4 weeks out from the last dose Review of Systems Review of Systems: All systems reviewed & are unremarkable except as noted in HPI & below Denies joint pains but feels like he is having trouble lifting his left upper extremity due to significant edema. Also is having some paresthesias in the left forearm and hand likely due to compression on the nerves Physical Exam Constitutional: WD/WN, vitals as above + ill appearing and + obese Eyes: + anicteric sclerae Neck: trachea midline, no thyromegaly Respiratory: Auscultation: + diminished lung sounds (Throughout), + rhonchi (Left upper lung field) and + wheezes (Mild expiratory wheezes in the upper airways); no crackles Cardiovascular: Rate/Rhythm: + tachycardic and + irregularly irregular He art Sounds: no murmur Vessels: radial pulses present and ulnar pulses present Extremities: + edema (Anasarca of the face, left greater than right upper extremity, bilateral lower extremities) Gastrointestinal (Abdomen): normal bowel sounds, soft, nontender, no hepatosplenomegaly Musculoskeletal: Extremities: + extremities abnormal to inspection (Left upper extremity with 2+ edema, no tenderness to palpation over shoulder, elbow, wrist, or hand joints. Able to flex and extend and make a fist and wrist extension and flexion, able to flex and extend the elbow, not able to lift arm above the level of the shoulder), no cyanosis and no clubbing Skin: + lesion (Multiple clear fluid-filled blisters on left arm and hand as well as across the abdomen) and + wound (Left dorsal forearm with skin sloughing off of it, serous drainage, no erythema) Trauma: + evidence of skin trauma (A horizontal linear area of ecchymosis and with some blisters across the mid abdomen, some mottling of lower extremities) Neurologic: + focal motor deficit (Some weakness in the left shoulder abduction as above) and awake Motor/Sensory: + sensory deficit (Mild decreased sensation to light touch in the left hand in the distribution of the left ulnar nerve) Psychiatric: Orientation: alert and oriented x 3 Results & Data Results & Data ([facility]) Vital Signs (Past 12 Hours) Vital Signs Temp Pulse Pulse Resp BP BP Pulse Ox 03/02/20 09:19 165 H 129/71 03/02/20 09:04 165 H 20 129/71 95 03/02/20 07:30 36.5 C 88 18 124/76 96 03/02/20 03:17 38.7 C H 98 H 22 114/70 95 03/02/20 01:20 38.4 C H 03/01/20 23:47 107 H 03/01/20 23:02 39.4 C H 111 H 28 H 132/80 98 Laboratory Results 03/02/20 03/02/20 03/02/20 Range/Units 20:46 16:53 14:04 WBC 2.25 L (4.8-10.8) K/uL RBC 2.54 L (4.7-6.1) M/uL Hgb 8.8 L (14.0-18.0) g/dL Hct 27.3 L (42-52) % MCV 107.5 H (80-100) fL MCH 34.6 H (25-34) pg MCHC 32.2 (32-36) g/dL RDW Std Deviation 61.1 H (36.4-46.3) fL RDW Coeff of Elvira 15.5 H (11.5-14.5) % Plt Count 69 L (130-400) K/uL MPV 9.4 (7.4-10.4) fL Immature Gran % (Auto) 7.1 % Neut % (Auto) 77.0 % Lymph % (Auto) 12.9 % [place] % (Auto) 2.2 % Eos % (Auto) 0.4 % Baso % (Auto) 0.4 % Neut # (Auto) 1.73 (1.4-6.5) K/uL Lymph # (Auto) 0.29 L (1.2-3.4) K/uL [place] # (Auto) 0.05 L (0.11-0.59) K/uL Eos # (Auto) 0.01 (0-0.5) K/uL Baso # (Auto) 0.01 (0-0.2) K/uL Immature Gran # (Auto) 0.16 H (0.00-0.02) K/uL Absolute Nucleated RBC 0.02 H (0-0) K/uL Nucleated RBC % (auto) 0.8 % Macrocytosis Present Tear Drop Cells Ovalocytes 1+ Rouleaux 1+ Sodium (136-145) mmol/L Potassium (3.5-5.1) mmol/L Chloride (98-107) mmol/L Carbon Dioxide (21-32) mmol/L Anion Gap (3-11) BUN (7-18) mg/dl Creatinine (0.6-1.4) mg/dl Est Cr Clr Drug Dosing ml/min Est GFR ( Amer) Est GFR (Non-Af Amer) BUN/Creatinine Ratio (10-20) Glucose (70-99) mg/dl POC Glucose 109 H 121 H (70-99) mg/dl Calcium (8.5-10.1) mg/dl Phosphorus (2.5-4.9) mg/dl Magnesium (1.8-2.4) mg/dl Total Bilirubin (0.2-1) mg/dl Direct Bilirubin (0-0.2) mg/dl AST (15-37) U/L ALT (12-78) U/L Alkaline Phosphatase (45-117) U/L Total Creatine Kinase (39-308) U/L Total Protein (6.4-8.2) gm/dl Albumin (3.4-5.0) gm/dl Procalcitonin (0-0.5) ng/ml TSH (0.300-4.500) uIu/ml Urine Legionella Ag Beta-(1,3)-D-Glucan B-(1,3)-D-Glucan Intrp 03/02/20 03/02/20 03/02/20 Range/Units 14:04 11:34 09:52 WBC (4.8-10.8) K/uL RBC (4.7-6.1) M/uL Hgb (14.0-18.0) g/dL Hct (42-52) % MCV (80-100) fL MCH (25-34) pg MCHC (32-36) g/dL RDW Std Deviation (36.4-46.3) fL RDW Coeff of Elvira (11.5-14.5) % Plt Count (130-400) K/uL MPV (7.4-10.4) fL Immature Gran % (Auto) % Neut % (Auto) % Lymph % (Auto) % [place] % (Auto) % Eos % (Auto) % Baso % (Auto) % Neut # (Auto) (1.4-6.5) K/uL Lymph # (Auto) (1.2-3.4) K/uL [place]on # (Auto) (0.11-0.59) K/uL Eos # (Auto) (0-0.5) K/uL Baso # (Auto) (0-0.2) K/uL Immature Gran # (Auto) (0.00-0.02) K/uL Absolute Nucleated RBC (0-0) K/uL Nucleated RBC % (auto) % Macrocytosis Tear Drop Cells Ovalocytes Rouleaux Sodium 141 (136-145) mmol/L Potassium 4.1 D (3.5-5.1) mmol/L Chloride 114 H (98-107) mmol/L Carbon Dioxide 18 L (21-32) mmol/L Anion Gap 9.0 (3-11) BUN 24 H (7-18) mg/dl Creatinine 1.98 H (0.6-1.4) mg/dl Est Cr Clr Drug Dosing 46.6 ml/min Est GFR ( Amer) 40.8 Est GFR (Non-Af Amer) 35.2 BUN/Creatinine Ratio 12.0 (10-20) Glucose 122 H (70-99) mg/dl POC Glucose 124 H (70-99) mg/dl Calcium 6.7 L (8.5-10.1) mg/dl Phosphorus 4.1 (2.5-4.9) mg/dl Magnesium 2.0 (1.8-2.4) mg/dl Total Bilirubin (0.2-1) mg/dl Direct Bilirubin (0-0.2) mg/dl AST (15-37) U/L ALT (12-78) U/L Alkaline Phosphatase (45-117) U/L Total Creatine Kinase (39-308) U/L Total Protein (6.4-8.2) gm/dl Albumin (3.4-5.0) gm/dl Procalcitonin (0-0.5) ng/ml TSH 1.610 (0.300-4.500) uIu/ml Urine Legionella Ag Pending Beta-(1,3)-D-Glucan B-(1,3)-D-Glucan Intrp 03/02/20 03/02/20 03/02/20 Range/Units 09:43 07:35 05:30 WBC (4.8-10.8) K/uL RBC (4.7-6.1) M/uL Hgb (14.0-18.0) g/dL Hct (42-52) % MCV (80-100) fL MCH (25-34) pg MCHC (32-36) g/dL RDW Std Deviation (36.4-46.3) fL RDW Coeff of Elvira (11.5-14.5) % Plt Count (130-400) K/uL MPV (7.4-10.4) fL Immature Gran % (Auto) % Neut % (Auto) % Lymph % (Auto) % [place] % (Auto) % Eos % (Auto) % Baso % (Auto) % Neut # (Auto) (1.4-6.5) K/uL Lymph # (Auto) (1.2-3.4) K/uL [place] # (Auto) (0.11-0.59) K/uL Eos # (Auto) (0-0.5) K/uL Baso # (Auto) (0-0.2) K/uL Immature Gran # (Auto) (0.00-0.02) K/uL Absolute Nucleated RBC (0-0) K/uL Nucleated RBC % (auto) % Macrocytosis Tear Drop Cells Ovalocytes Rouleaux Sodium (136-145) mmol/L Potassium (3.5-5.1) mmol/L Chloride (98-107) mmol/L Carbon Dioxide (21-32) mmol/L Anion Gap (3-11) BUN (7-18) mg/dl Creatinine (0.6-1.4) mg/dl Est Cr Clr Drug Dosing ml/min Est GFR ( Amer) Est GFR (Non-Af Amer) BUN/Creatinine Ratio (10-20) Glucose (70-99) mg/dl POC Glucose 88 (70-99) mg/dl Calcium (8.5-10.1) mg/dl Phosphorus (2.5-4.9) mg/dl Magnesium (1.8-2.4) mg/dl Total Bilirubin (0.2-1) mg/dl Direct Bilirubin (0-0.2) mg/dl AST (15-37) U/L ALT (12-78) U/L Alkaline Phosphatase (45-117) U/L Total Creatine Kinase (39-308) U/L Total Protein (6.4-8.2) gm/dl Albumin (3.4-5.0) gm/dl Procalcitonin 31.54 H (0-0.5) ng/ml TSH (0.300-4.500) uIu/ml Urine Legionella Ag Beta-(1,3)-D-Glucan Pending B-(1,3)-D-Glucan Intrp Pending 03/02/20 03/02/20 Range/Units 05:30 05:30 WBC 1.68 L (4.8-10.8) K/uL RBC 2.28 L (4.7-6.1) M/uL Hgb 7.9 L (14.0-18.0) g/dL Hct 24.7 L (42-52) % MCV 108.3 H (80-100) fL MCH 34.6 H (25-34) pg MCHC 32.0 (32-36) g/dL RDW Std Deviation 60.3 H (36.4-46.3) fL RDW Coeff of Elvira 15.3 H (11.5-14.5) % Plt Count 76 L (130-400) K/uL MPV 9.9 (7.4-10.4) fL Immature Gran % (Auto) 7.1 % Neut % (Auto) 72.0 % Lymph % (Auto) 18.5 % [place] % (Auto) 1.8 % Eos % (Auto) 0.0 % Baso % (Auto) 0.6 % Neut # (Auto) 1.21 L (1.4-6.5) K/uL Lymph # (Auto) 0.31 L (1.2-3.4) K/uL [place] # (Auto) 0.03 L (0.11-0.59) K/uL Eos # (Auto) 0.00 (0-0.5) K/uL Baso # (Auto) 0.01 (0-0.2) K/uL Immature Gran # (Auto) 0.12 H (0.00-0.02) K/uL Absolute Nucleated RBC (0-0) K/uL Nucleated RBC % (auto) % Macrocytosis Present Tear Drop Cells 1+ Ovalocytes 1+ Rouleaux Sodium 144 (136-145) mmol/L Potassium 3.5 (3.5-5.1) mmol/L Chloride 117 H (98-107) mmol/L Carbon Dioxide 19 L (21-32) mmol/L Anion Gap 7.0 (3-11) BUN 18 (7-18) mg/dl Creatinine 1.97 H (0.6-1.4) mg/dl Est Cr Clr Drug Dosing 46.9 ml/min Est GFR ( Amer) 41.0 Est GFR (Non-Af Amer) 35.4 BUN/Creatinine Ratio 9.2 L (10-20) Glucose 85 (70-99) mg/dl POC Glucose (70-99) mg/dl Calcium 6.6 L (8.5-10.1) mg/dl Phosphorus 3.8 D (2.5-4.9) mg/dl Magnesium 1.8 (1.8-2.4) mg/dl Total Bilirubin 0.9 (0.2-1) mg/dl Direct Bilirubin 0.5 H (0-0.2) mg/dl AST 504 H (15-37) U/L ALT 105 H (12-78) U/L Alkaline Phosphatase 57 (45-117) U/L Total Creatine Kinase 29022 H (39-308) U/L Total Protein 6.1 L (6.4-8.2) gm/dl Albumin 1.6 L (3.4-5.0) gm/dl Procalcitonin (0-0.5) ng/ml TSH (0.300-4.500) uIu/ml Urine Legionella Ag Beta-(1,3)-D-Glucan B-(1,3)-D-Glucan Intrp PG Care Time/CCT Total # of Minutes Spent Total Time Spent with Patient: Total time spent is greater than 50% in coordination of care (as documented) at patient's floor/unit and/or counseling patient: Prolonged Care Time Prolonged Care Time: Yes Total Prolonged Care Time: 75 Coding Level of Care Code 51138 Subseq Hosp Care Lvl 3 (25 - SIGNIFICANT, SEPARATELY IDENTIFIABLE ) Diagnoses Sepsis A41.9; R65.20; G93.40 Sepsis acute organ dysfunction status: with acute organ dysfunction Sepsis type: sepsis due to unspecified organism Severe sepsis acute organ dysfunction type: encephalopathy Severe sepsis shock status: without septic shock Pneumonia J18.9 Pneumonia type: due to unspecified organism Atrial fibrillation with rapid ventricular response I48.91 CHLOÉ (acute kidney injury) N17.9 Rhabdomyolysis M62.82 Rhabdomyolysis type: non-traumatic Acute respiratory failure with hypoxia J96.01 Elevated troponin R77.8 Abnormal liver enzymes R74.8 Multiple myeloma in remission C90.01 Hypokalemia E87.6 Hypophosphatemia E83.39 CKD (chronic kidney disease) N18.9 HTN (hypertension) I10 Fall W19.XXXA Pancytopenia D61.818 Prediabetes R73.03 Neuropathy G62.9 Hypoalbuminemia E88.09 Paresthesia of left arm R20.2 GERD (gastroesophageal reflux disease) K21.9 DVT prophylaxis Z29.9 Additional Codes Prolonged Care Time - Prolonged Care Time: Yes ([id number]) (1) Rhabdomyolysis Rhabdomyolysis type: non-traumatic Qualified Code(s): M62.82 - Rhabdomyolysis (2) Sepsis Sepsis acute organ dysfunction status: with acute organ dysfunction Sepsis type: sepsis due to unspecified organism Severe sepsis acute organ dysfunction type: encephalopathy Severe sepsis shock status: without septic shock Qualified Code(s): A41.9 - Sepsis, unspecified organism; R65.20 - Severe sepsis without septic shock; G93.40 - Encephalopathy, unspecified (3) Pneumonia Pneumonia type: due to unspecified organism
[2020-03-02] MEDS ORDERED: 0.2 MICRON FILTER SET 1 EA IV ONE (11:01)
[2020-03-02] MEDS ORDERED: STAT IV Infusion **Titration per Protocol STA (11:01)
[2020-03-02] MEDS ORDERED: AMIODARONE IV BOLUS & DRIP IV STA (11:01)
[2020-03-02] MEDS ORDERED: AMIODARONE / D5W 150 MG/100 ML BAG IV ONE (11:15)
[2020-03-02] MEDS ORDERED: AMIODARONE / D5W 360 MG/200 ML BAG IV ONE (11:30)
--- NOTE | 2020-03-02 12:46 | Cardiology Progress Note ---
Date of Service March 02, 2020 Assessment & Plan (1) Paroxysmal atrial fibrillation: (2) Elevated troponin: (3) Sepsis: ASSESSMENT/PLAN: 1. Paroxysmal atrial fibrillation: Continues to have episodes of AFib with RVR with his most recent episode prolonged of approximately 3-4 hours less far. Became hypotensive with intravenous metoprolol per primary service. AFib exacerbations likely related to his spiking of fevers and underlying sepsis. Given that his heart rate is so tachycardic and likely to continue to intermittently occur, will start amiodarone IV. Monitor LFTs closely. LFTs are elevated at baseline due to rhabdomyolysis. Amiodarone hopefully will be a temporary medication, depending on clinical course and response. Chads Vasc score is 1, but he has worsening thrombocytopenia and anemia and therefore will not start anticoagulation therapy at this time. 2. Elevated troponin: Likely multifactorial due to rhabdomyolysis, acute illness/sepsis with high fever, and also AFib with RVR overnight. He did not present with acute coronary syndrome. No further ischemic evaluation at this time. 3. Sepsis: As per primary service. Continues to spike fevers. 4. Disposition: His primary civil engineer can resume his cardiology care tomorrow. Patient care discussed with Dr. Marion of the primary hospitalist service. Follow-up with his primary civil engineer Dr. Baig on discharge. Admission and Anticipated Discharge Date Admission Date: February 29, 2020 Subjective He has had recurrent paroxysmal atrial fibrillation with rapid ventricular response. He had an episode overnight at approximately 8:39 p.m. and spontaneously converted at 10:14 p.m. back to sinus rhythm. He then once again developed AFib at approximately 8:44 a.m. this morning and continues to be in atrial fibrillation with rapid ventricular response. His heart rates at times as high as the 170s to 180s or higher. Fortunately, he is asymptomatic. He was given intravenous metoprolol and became mildly hypotensive. He denies palpitations, chest pain, syncope, near-syncope. He feels more short of breath this morning the knee has previously. He continues to spike fevers with a T-max in last 24 hours of 39.4 C. Review of systems: As above. Physical Exam Physical Exam: Gen.: No acute distress. Somnolent but easily arousable and able to converse. HEENT: Anicteric sclera. His face appears to be more edematous. Neck: Very thick neck. Cardiac: PMI was nonpalpable. No ventricular heave. Regular. Normal S1-S2. No murmurs, rubs, or gallops. Pulmonary: Coarse breath sounds bilaterally with expiratory wheezing. Abdomen: Soft, nontender, nondistended, with normoactive bowel sounds. No bruits noted. Extremities: 2+ right radial pulse. Distal left upper extremity is wrapped. 2+ posterior tibialis pulses bilaterally. Trace bilateral lower extremity edema. No cyanosis. Psychiatric: Affect appears appropriate. Results & Data ([facility]) Vital Signs (Past 12 Hours) Vital Signs Temp Pulse Pulse Resp BP BP Pulse Ox 03/02/20 09:19 165 H 129/71 03/02/20 09:04 165 H 20 129/71 95 03/02/20 08:00 84 03/02/20 07:30 36.5 C 88 18 124/76 96 03/02/20 03:17 38.7 C H 98 H 22 114/70 95 03/02/20 01:20 38.4 C H Intake & Output 02/29/20 03/01/20 03/02/20 03/03/20 06:59 06:59 06:59 06:59 Intake Total 5831.667 / 5831.667 6315.000 / 6315.000 2039 Output Total 900 / 900 5 / 2125 Balance 4931.667 / 4931.667 4190.000 / 4190.000 2039 Weight 101.1 kg 107 kg Laboratory Results Laboratory Results - last 24 hr 02/29/20 03/01/20 03/01/20 20:01 12:35 16:17 WBC RBC Hgb Hct MCV MCH MCHC RDW Std Deviation RDW Coeff of Elvira Plt Count MPV Immature Gran % (Auto) Neut % (Auto) Lymph % (Auto) Pickett % (Auto) Eos % (Auto) Baso % (Auto) Neut # (Auto) Lymph # (Auto) Pickett # (Auto) Eos # (Auto) Baso # (Auto) Immature Gran # (Auto) Macrocytosis Tear Drop Cells Ovalocytes Sodium 141 Potassium 3.0 L Chloride 114 H Carbon Dioxide 23 Anion Gap 4.0 BUN 15 Creatinine 1.70 H Est Cr Clr Drug Dosing 52.8 Est GFR ( Amer) 49.0 Est GFR (Non-Af Amer) 42.3 BUN/Creatinine Ratio 8.9 L Glucose 106 H POC Glucose 120 H Calcium 6.8 L Phosphorus 0.9 L* D Magnesium 2.0 Total Bilirubin 1.1 H Direct Bilirubin AST 524 H ALT 104 H Alkaline Phosphatase 45 Total Creatine Kinase Troponin I 1.010 H* Total Protein 6.6 Albumin 1.8 L Globulin 4.8 H Albumin/Globulin Ratio 0.4 L Procalcitonin Urine Legionella Ag Bld Cult Staph aureus PCR Negative Blood Culture MRSA PCR Negative Beta-(1,3)-D-Glucan B-(1,3)-D-Glucan Intrp 03/01/20 03/01/20 03/02/20 19:59 20:39 05:30 WBC 1.68 L RBC 2.28 L Hgb 7.9 L Hct 24.7 L MCV 108.3 H MCH 34.6 H MCHC 32.0 RDW Std Deviation 60.3 H RDW Coeff of Elvira 15.3 H Plt Count 76 L MPV 9.9 Immature Gran % (Auto) 7.1 Neut % (Auto) 72.0 Lymph % (Auto) 18.5 Pickett % (Auto) 1.8 Eos % (Auto) 0.0 Baso % (Auto) 0.6 Neut # (Auto) 1.21 L Lymph # (Auto) 0.31 L Pickett # (Auto) 0.03 L Eos # (Auto) 0.00 Baso # (Auto) 0.01 Immature Gran # (Auto) 0.12 H Macrocytosis Present Tear Drop Cells 1+ Ovalocytes 1+ Sodium 142 Potassium 3.4 L Chloride 116 H Carbon Dioxide 21 Anion Gap 5.0 BUN 15 Creatinine 1.70 H Est Cr Clr Drug Dosing 52.8 Est GFR ( Amer) 49.0 Est GFR (Non-Af Amer) 42.3 BUN/Creatinine Ratio 9.0 L Glucose 106 H POC Glucose 114 H Calcium 6.5 L Phosphorus 2.3 L D Magnesium Total Bilirubin Direct Bilirubin AST ALT Alkaline Phosphatase Total Creatine Kinase Troponin I Total Protein Albumin Globulin Albumin/Globulin Ratio Procalcitonin Urine Legionella Ag Bld Cult Staph aureus PCR Blood Culture MRSA PCR Beta-(1,3)-D-Glucan B-(1,3)-D-Glucan Intrp 03/02/20 03/02/20 03/02/20 05:30 05:30 07:35 WBC RBC Hgb Hct MCV MCH MCHC RDW Std Deviation RDW Coeff of Elvira Plt Count MPV Immature Gran % (Auto) Neut % (Auto) Lymph % (Auto) Pickett % (Auto) Eos % (Auto) Baso % (Auto) Neut # (Auto) Lymph # (Auto) Pickett # (Auto) Eos # (Auto) Baso # (Auto) Immature Gran # (Auto) Macrocytosis Tear Drop Cells Ovalocytes Sodium 144 Potassium 3.5 Chloride 117 H Carbon Dioxide 19 L Anion Gap 7.0 BUN 18 Creatinine 1.97 H Est Cr Clr Drug Dosing 46.9 Est GFR ( Amer) 41.0 Est GFR (Non-Af Amer) 35.4 BUN/Creatinine Ratio 9.2 L Glucose 85 POC Glucose 88 Calcium 6.6 L Phosphorus 3.8 D Magnesium 1.8 Total Bilirubin 0.9 Direct Bilirubin 0.5 H AST 504 H ALT 105 H Alkaline Phosphatase 57 Total Creatine Kinase 24592 H Troponin I Total Protein 6.1 L Albumin 1.6 L Globulin Albumin/Globulin Ratio Procalcitonin 31.54 H Urine Legionella Ag Bld Cult Staph aureus PCR Blood Culture MRSA PCR Beta-(1,3)-D-Glucan B-(1,3)-D-Glucan Intrp 03/02/20 03/02/20 03/02/20 09:43 09:52 11:34 WBC RBC Hgb Hct MCV MCH MCHC RDW Std Deviation RDW Coeff of Elvira Plt Count MPV Immature Gran % (Auto) Neut % (Auto) Lymph % (Auto) Pickett % (Auto) Eos % (Auto) Baso % (Auto) Neut # (Auto) Lymph # (Auto) Pickett # (Auto) Eos # (Auto) Baso # (Auto) Immature Gran # (Auto) Macrocytosis Tear Drop Cells Ovalocytes Sodium Potassium Chloride Carbon Dioxide Anion Gap BUN Creatinine Est Cr Clr Drug Dosing Est GFR ( Amer) Est GFR (Non-Af Amer) BUN/Creatinine Ratio Glucose POC Glucose 124 H Calcium Phosphorus Magnesium Total Bilirubin Direct Bilirubin AST ALT Alkaline Phosphatase Total Creatine Kinase Troponin I Total Protein Albumin Globulin Albumin/Globulin Ratio Procalcitonin Urine Legionella Ag Pending Bld Cult Staph aureus PCR Blood Culture MRSA PCR Beta-(1,3)-D-Glucan Pending B-(1,3)-D-Glucan Intrp Pending Diagnostic Findings Telemetry personally reviewed: Atrial fibrillation with rapid ventricular response at the time of today's visit. He has had paroxysmal AFib, with current episodes starting near 8:44 a.m. to present time. Chest x-ray 03/02/2020: Progression of dense left upper lung consolidation, suggestive of pneumonia. Medications Administered Current Inpatient Medications Acyclovir (Acyclovir 400 Mg Tab) 400 mg PO BID MIRLANDE Stop: 03/31/20 08:59 Last Admin: 03/02/20 09:20 Dose: 400 mg Documented by: Aspirin (Aspirin 81 Mg Ectab) 81 mg PO QAM MIRLANDE Stop: 03/31/20 08:59 Last Admin: 03/02/20 08:30 Dose: 81 mg Documented by: Cyanocobalamin (Cyanocobalamin 500 Mcg Tablet (Vitamin B-12)) 1,000 mcg PO QAM MIRLANDE Stop: 03/31/20 08:59 Last Admin: 03/02/20 08:30 Dose: 1,000 mcg Documented by: Dextrose (Dextrose 50% 50 Ml Syringe) 25 - 50 ml IV UD PRN; Protocol PRN Reason: Hypoglycemia Protocol Stop: 03/31/20 00:29 Docusate Sodium (Docusate Sodium 100 Mg Cap) 100 mg PO DAILY PRN PRN Reason: Constipation Stop: 03/31/20 00:29 Doxepin HCl (Doxepin Hcl 50 Mg Capsule) 100 mg PO HS MIRLANDE Stop: 03/31/20 20:59 Last Admin: 03/01/20 21:26 Dose: 100 mg Documented by: Fluticasone Propionate (Fluticasone Propionate Na Spr 16 Gm Btl) 2 sprays NA DAILY MIRLANDE Stop: 03/31/20 08:59 Last Admin: 03/02/20 08:34 Dose: Not Given Documented by: Gabapentin (Gabapentin 100 Mg Cap) 200 mg PO TID MIRLANDE Stop: 03/31/20 08:59 Last Admin: 03/02/20 08:30 Dose: 200 mg Documented by: Glucagon (Glucagon For Inj 1 Mg Vial) 1 mg SQ UD PRN; Protocol PRN Reason: Hypoglycemia Protocol Stop: 03/31/20 00:29 Glucose (Glucose 10 Tabs/Tube) 4 - 8 tabs PO UD PRN; Protocol PRN Reason: Hypoglycemia Protocol Stop: 03/31/20 00:29 Glucose (Glucose 40% Gel 15 Gm Tube) 15 - 30 gm PO UD PRN; Protocol PRN Reason: Hypoglycemia Protocol Stop: 03/31/20 00:29 Guaifenesin (Guaifenesin 600 Mg Tabcr) 1,200 mg PO Q12 MIRLANDE Stop: 04/01/20 20:59 Heparin Sodium (Porcine) (Heparin 100 Unit/Ml 5ml Flush) 5 ml FLUSH PRN PRN PRN Reason: Flush Stop: 03/31/20 00:20 Heparin Sodium (Porcine) (Heparin Sod 5,000 Unit/0.5 Ml Vial) 7,500 units SQ Q8 MIRLANDE Stop: 03/31/20 05:59 Last Admin: 03/02/20 06:23 Dose: 7,500 units Documented by: Piperacillin Sod/Tazobactam (Sod 3.375 gm/ Dextrose) 115 mls @ 28.75 mls/hr IV Q8H MIRLANDE; Protocol Stop: 03/08/20 17:59 Last Admin: 03/02/20 10:27 Dose: 28.8 mls/hr Documented by: Sodium Chloride (Nss 1000ml) 1,000 mls @ 100 mls/hr IV .Q10H MIRLANDE Stop: 03/31/20 10:59 Last Infusion: 03/02/20 10:50 Dose: 0 mls/hr Documented by: Acetaminophen (Ofirmev) 1,000 mg in 100 mls @ 400 mls/hr IV Q8H PRN PRN Reason: fever or pain Stop: 03/04/20 11:21 Last Infusion: 03/02/20 09:23 Dose: Infused Documented by: Azithromycin 250 mg/ Dextrose 252.5 mls @ 125 mls/hr IV DAILY MIRLANDE Stop: 03/10/20 08:59 Caspofungin 50 mg/ Sodium (Chloride) 260 mls @ 250 mls/hr IV DAILY MIRLANDE Stop: 03/05/20 08:59 Amiodarone HCl/Dextrose (Nexterone / D5w) 360 mg in 200 mls @ 33.333 mls/hr IV ONE ONE Stop: 03/02/20 17:29 Last Admin: 03/02/20 11:43 Dose: 33.3 mls/hr Documented by: Amiodarone HCl/Dextrose (Nexterone / D5w) 360 mg in 200 mls @ 16.667 mls/hr IV .Q12H MIRLANDE Stop: 04/01/20 17:29 Insulin Aspart (Insulin Aspart 100 Units/Ml 3 Ml Pen) 0 units SC ACHS MIRLANDE Stop: 03/31/20 00:59 Last Admin: 03/02/20 11:44 Dose: Not Given Documented by: Levalbuterol HCl (Levalbuterol Hcl 0.63 Mg/3 Ml Neb) 0.63 mg NEB Q6R PRN PRN Reason: wheezing or SOB Stop: 04/01/20 12:59 Metoprolol Tartrate (Metoprolol Tartrate 50 Mg Tab) 50 mg PO TID MIRLANDE Stop: 03/31/20 00:29 Last Admin: 03/02/20 08:29 Dose: 50 mg Documented by: Metoprolol Tartrate (Metoprolol Tartrate 1 Mg/Ml Vial) 5 mg IV Q4 PRN PRN Reason: HR>120 Stop: 04/01/20 11:59 Last Admin: 03/02/20 09:19 Dose: 5 mg Documented by: Miscellaneous (Carbohydrates For Hypoglycemia ) 15 - 30 gm PO UD PRN PRN Reason: Hypoglycemia Protocol Stop: 03/31/20 00:29 Miscellaneous Information (Piperacill/Tazobac Consult Active) 1 ea N/A UD PRN PRN Reason: Consult Stop: 03/31/20 09:29 Pantoprazole Sodium (Pantoprazole 40 Mg Tab) 40 mg PO BID MIRLANDE Stop: 03/31/20 08:59 Last Admin: 03/02/20 08:30 Dose: 40 mg Documented by: PG Care Time/CCT Total # of Minutes Spent Total Time Spent with Patient: Total time spent is greater than 50% in coordination of care (as documented) at patient's floor/unit and/or counseling patient: Coding Level of Care Code 59596 Subseq Hosp Care Lvl 3 Diagnoses Paroxysmal atrial fibrillation I48.0 Elevated troponin R77.8 Sepsis A41.9; R65.20; G93.40 Sepsis acute organ dysfunction status: with acute organ dysfunction Sepsis type: sepsis due to unspecified organism Severe sepsis acute organ dysfunction type: encephalopathy Severe sepsis shock status: without septic shock (1) Sepsis Sepsis acute organ dysfunction status: with acute organ dysfunction Sepsis type: sepsis due to unspecified organism Severe sepsis acute organ dysfunction type: encephalopathy Severe sepsis shock status: without septic shock Qualified Code(s): A41.9 - Sepsis, unspecified organism; R65.20 - Severe sepsis without septic shock; G93.40 - Encephalopathy, unspecified
--- NOTE | 2020-03-02 13:26 | Critical Care Consultation ---
Date of Consultation March 02, 2020 Assessment & Plan (1) Atrial fibrillation with rapid ventricular response: Neurologic: Avoid mind altering agents at this point. He is on doxepin which we will hold. Holding gabapentin as well. Pulmonary: Ventilator/BiPAP settings: Head of the bed elevated to 30 degrees if intubated Cardiovascular: Will maintain mean arterial pressure above 65. Continue amiodarone drip. Holding on anticoagulation given thrombocytopenia and chads vas score of 1. If he becomes more unstable, will have to consider cardioversion for his atrial fibrillation with rapid ventricular response. Continue metoprolol 50 mg 3 times daily. Hold for blood pressure with a systolic less than 100. TSH is pending. He may need a central line and initiation of vasopressors. Continue to treat the underlying issue which is sepsis related to pneumonia. Gastrointestinal: We will maintain n.p.o. status for now. Continue pantoprazole twice daily. He does have LFT derangements likely related to rhabdomyolysis. Patient is complaining of diarrhea. Will check for C. difficile if next bowel movement is diarrhea. Renal: Patient with evidence of CHLOÉ. His albumin is 1.6. He is very likely third spacing. We will hold off further fluid administration at this point. He has evidence of a non anion gap acidosis likely related to large volumes of normal saline resuscitation. He is currently 11 L positive since admission. Will consider diuresis once his blood pressure is improved. We will hold IV fluids at this time. He may have evidence of ischemic ATN from hypotension. Multiple myeloma kidney is difficult to rule out. Replete magnesium and potassium to keep above 2 and 4 respectively. I am going to check a BMP, magnesium and phosphorus level. Trend CK given his rhabdomyolysis. Infectious disease: Continue Zosyn and azithromycin for now. MRSA screen was negative. Procalcitonin is elevated. He has a dense left upper lobe infiltrate. He is immunocompromise. We can continue caspofungin for the time being. He may need a bronchoscopy if no significant improvement is seen. I think most likely he has a bacterial pneumonia, but fungal infection is a possibility. I think this less likely represents invasive aspergillosis. Low threshold for an ID consult. Alkaline phosphatase within normal limits. COVID-19 testing was negative on 02/29/2020. Urine Legionella is pending. Beta glucan is pending as well. This may be falsely elevated in light of his Zosyn administration. He is been having watery diarrhea for several weeks. We will send for C. difficile PCR if his next stool is watery. Continue acyclovir for prophylaxis given his immun ocompromised state. Hematologic: He has evidence of pancytopenia likely from his multiple myeloma. Will need to get his records from his oncologist to see specifically which medications he has been receiving for his multiple myeloma. He has evidence of worsening thrombocytopenia likely related to sepsis coagulopathy and multiple myeloma. We will hold on DVT prophylaxis with chemicals at this time. Endocrine: Insulin protocol per ICU F/E/N: Holding fluids in food at this point. Lines and tubes: Peripheral IV and Friedman catheter VTE prophylaxis: SCD CODE STATUS: Full code Family at bedside: Disposition: Remain in the ICU today I have personally spent 52 minutes of critical care time in the direct management of this patient. This is a life/limb threatening event. This includes time spent evaluating patient, direct bedside care, chart review, placing orders, interpretation of diagnostic studies, discussion with consultants, patient, and family members, as well as other required patient management activities. This time is exclusive of all separately billable procedures, and teaching time and separate from and in addition to any other critical care service time. Thank you for allowing us to participate in the care of this patient. (2) Rhabdomyolysis: (3) Severe sepsis: (4) Fever: (5) Pancytopenia: (6) Multiple myeloma: (7) Acute kidney injury: History of Present Illness Reason for Consultation: Atrial fibrillation with rapid ventricular response and hypotension Requesting Physician: Dr. Tamiko Marion Attending Physician: Tamiko Marion MD History of Present Illness 64-year-old male with a past medical history of multiple myeloma, atrial fibrillation and GERD who was found down in his living room 1 day prior to the admission. He was apparently on the floor for 1 day. Nursing noted that he was covered in urine and vomit on arrival. He has been febrile throughout the hospital admission. His highest fever was 107.8 on admission. He was found to have a CT chest that demonstrated left upper lobe dense infiltrate. He is being started on IV amiodarone on the floor. Due to decreasing blood pressure and shortness of breath, ICU consultation was requested. He is currently saturating 95% on room air. Heart rate in the 160s. He has an elevated troponin which is being attributed to possible rhabdomyolysis and demand ischemia. It is not felt to be due to acute coronary syndrome. Cardiology is following the patient. Patient notes that he has been coughing with increased sputum production. He is shivering. He denies any chest pain. He denies any nausea or vomiting. He notes that he had a bone marrow transplant 2009. His last hospitalization was in 2018. He does have chronic diarrhea. He denies any pain in his legs. He notes that he was feeling well up until Tuesday. He does not recall passing out. He denies any recent travel. He has forced air heating at home. No recent sick contacts. No pets at home. He denies any history of smoking. Echo yesterday demonstrated an EF of 60 to 65%. No valvular abnormalities noted. Right ventricle was poorly visualized but appeared grossly normal in size. CBC demonstrates a hemoglobin of 7.9 and a platelet count that is trending down to 76,000. INR is 1.2 as of 02/28. He has evidence of a non-anion gap acidosis. Chloride is 117. Creatinine is worsening to 1.97. CK is elevated to 11,480. This is improved from the previous value. Troponin was elevated to 1.010 is trending downwards. He has evidence of LFT derangements which may be related to rhabdomyolysis. Procalcitonin is 31.54. TSH as of May 2019 was 1.2, lactate is pending. Blood cultures with evidence of coag negative staph on admission that is likely contaminant. Repeat blood cultures pending. Fungal cultures obtained as well. Patient is currently on azithromycin, caspofungin and Zosyn. He previously received a dose of vancomycin. Allergies Allergy/AdvReac Type Severity Reaction Status Date / Time epinephrine Allergy Intermediate STATES Verified 10/30/19 15:37 GETS A "WARNER" levofloxacin Allergy Intermediate RASH Verified 02/29/20 22:23 Sulfa (Sulfonamide Allergy Intermediate Rash Verified 02/29/20 22:24 Antibiotics) house dust Allergy Unknown Itchy Verified 02/29/20 22:24 Eye(s) Home Medications Home Medications Medication Instructions Recorded Confirmed Type Calcium 600 + D(3) 1 cap PO QAM 08/07/18 02/29/20 History acyclovir 400 mg PO BID 08/07/18 02/29/20 History aspirin 81 mg PO QAM 08/07/18 02/29/20 History cyanocobalamin (vitamin B-12) 1,000 mcg PO QAM 08/07/18 02/29/20 History [Vitamin B-12] gabapentin 300 mg PO TID 08/07/18 02/29/20 History guaifenesin [Mucinex] 600 mg PO Q12H PRN 08/07/18 02/29/20 History metoprolol tartrate 50 mg PO TID 08/07/18 02/29/20 History omega 5-cja-srf-fish oil [Fish Oil] 2 cap PO QAM 08/07/18 02/29/20 History pantoprazole 40 mg PO BID 08/07/18 02/29/20 History ascorbic acid (vitamin C) 500 mg 500 mg PO QAM cap 02/23/19 02/29/20 History capsule dexamethasone 4 mg tablet See Rx Instructions .ROUTE 02/23/19 02/29/20 History .COMPLEX tab hydrochlorothiazide 12.5 mg PO QAM 06/08/19 02/29/20 History potassium chloride 20 meq PO QAM 06/08/19 02/29/20 History doxepin 100 mg capsule 100 mg PO HS #90 cap 02/25/20 02/29/20 Rx acetaminophen [Tylenol Extra 500 mg PO Q6H PRN 02/29/20 02/29/20 History Strength] cetirizine 10 mg PO BID PRN 02/29/20 02/29/20 History cod liver oil 1 cap PO DAILY 02/29/20 02/29/20 History docusate sodium [Colace] 100 mg PO DAILY PRN 02/29/20 02/29/20 History flaxseed oil 1 ea MISCELLANEOUS DAILY 02/29/20 02/29/20 History fluticasone propionate [Flonase] 2 spray INTRANASAL DAILY 02/29/20 02/29/20 History Patient History Medical History (Updated 03/02/20 @ 13:18 by Isaias Alcantara MD) Acute kidney injury CKD (chronic kidney disease) Constipation GERD (gastroesophageal reflux disease) HTN (hypertension) Multiple myeloma Multiple myeloma Neuropathy BL FOOT; 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 CANCER TREATMENT Pancytopenia Paroxysmal atrial fibrillation Prediabetes Seasonal allergies Severe sepsis Surgical History History of bone marrow biopsy History of cataract surgery BL History of colonoscopy History of incision and drainage CYST - RT GROIN History of stem cell transplant History of surgery CYST REMOVED FROM COCCYX 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; 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 Family History Family/Other Family history of diabetes mellitus Social History Smoking Status: Never smoker Second Hand Exposure: No; Do You Dip or Chew Tobacco: No; Hx Alcohol Use: Yes Alcohol type: wine Hx Substance Use: No Preferred Language: Armenian Communication Ability: Effective Spool Sander Required: No Beliefs That Will Affect Care: None marital status: Single Current Living Situation: Alone Other Information That Helps Us Care for You: No Feels Safe at Home: Yes Safety Concerns: Feels Safe At This Time Assistive Devices: Glasses and Oxygen - Continuous Results & Data Results & Data ([facility]) Vital Signs (Past 12 Hours) Vital Signs Temp Pulse Pulse Resp BP BP Pulse Ox 03/02/20 09:19 165 H 129/71 03/02/20 09:04 165 H 20 129/71 95 03/02/20 08:00 84 03/02/20 07:30 97.7 F 88 18 124/76 96 03/02/20 03:17 101.7 F H 98 H 22 114/70 95 03/02/20 01:20 101.1 F H Coding Level of Care Code Critical Care 1st 30-74 mins Diagnoses Atrial fibrillation with rapid ventricular response I48.91 Rhabdomyolysis M62.82 Rhabdomyolysis type: non-traumatic Severe sepsis A41.9; R65.20 Fever R50.9 Fever type: unspecified Pancytopenia D61.818 Multiple myeloma C90.00 Acute kidney injury N17.9 Time Spent (min) 52 (1) Fever Fever type: unspecified Qualified Code(s): R50.9 - Fever, unspecified (2) Rhabdomyolysis Rhabdomyolysis type: non-traumatic Qualified Code(s): M62.82 - Rhabdomyolysis
[2020-03-02 14:15] LABS: Hematocrit (blood only) 27.3 % (42-52); Hemoglobin 8.8 g/dL (14.0-18.0); Mean Corpuscular Hemoglobin 34.6 pg (25-34); Mean Corpuscular Hgb Conc 32.2 g/dL (32-36); Mean Corpuscular Volume 107.5 fL (80-100); Nucleated RBC # (auto) 0.02 K/uL (0-0); Nucleated RBC % (auto) 0.8 %; RDW Coefficient of Variation 15.5 % (11.5-14.5); RDW Standard Deviation 61.1 fL (36.4-46.3); Red Blood Count 2.54 M/uL (4.7-6.1); White Blood Count 2.25 K/uL (4.8-10.8)
[2020-03-02 14:28] LABS: Mean Platelet Volume 9.4 fL (7.4-10.4); Platelet Count 69 K/uL (130-400)
[2020-03-02 14:41] LABS: Calcium 6.7 mg/dl (8.5-10.1); Creatinine Clr Calc Pharmacy 46.6 ml/min; Est GFR (African American) 40.8; Est GFR (Non-African American) 35.2; Potassium 4.1 mmol/L (3.5-5.1)
[2020-03-02 14:42] LABS: Basophils # (auto) 0.01 K/uL (0-0.2); Basophils % (auto) 0.4 %; Eosinophils # (auto) 0.01 K/uL (0-0.5); Eosinophils % (auto) 0.4 %; Immature Granulocytes # (auto) 0.16 K/uL (0.00-0.02); Immature Granulocytes % (auto) 7.1 %; Lymphocytes # (auto) 0.29 K/uL (1.2-3.4); Lymphocytes % (auto) 12.9 %; Macrocytosis Present; Monocytes # (auto) 0.05 K/uL (0.11-0.59); Monocytes % (auto) 2.2 %; Neutrophils # (auto) 1.73 K/uL (1.4-6.5); Ovalocytes 1+; Rouleaux 1+
[2020-03-02 14:46] LABS: Phosphorus 4.1 mg/dl (2.5-4.9); Thyroid Stimulating Hormone 1.61 uIu/ml (0.300-4.500)
--- NOTE | 2020-03-02 16:31 | Nephrology Consultation ---
Date of Consultation March 02, 2020 Assessment & Plan (1) Acute kidney injury: Mr. Collins was admitted with a fall at home, CHLOÉ with rhabdomyolysis, proteinuria, hypoalbuminemia with h/o MM. Cr was 2.4 on admission with b/l cr 1.5 to 1.7. CPK was >26918. Underlying CKD and proteinuria could be secondary to multiple myeloma. Cr slightly improved to 2.0, CPK slightly improved, but getting volume overloaded with NS since admission, and Hypoalbuminemia. --stop IV fluid, give Bumex 2 mg IV x 1 dose now --repeat CPK in am --monitor electrolyte and intake and output Will follow Thank you for the consult. (2) Fall: (3) Pancytopenia: (4) Rhabdomyolysis: History of Present Illness Reason for Consultation: CHLOÉ Attending Physician: Tamiko Marion MD History of Present Illness Mr. Kirt Collins is a 64yo C male with PMH of Stage 3 CKD, Multiple Myeloma, AF, GERD, HTN admitted to [facility] after a fall at home. Nephrology consult was requested to manage CHLOÉ. EMR records were reviewed in detail during visit. Mr. Collins was reported to ahve a mechanical fall at [facility] and he was on the floor for day, unable to get up. He was found by neighbors and eneida to ER. On arrival to the ER he was found to be markedly febrile at 41.2C, tachycardic at 150bpm, BM at 199/91, tachypneic at 35 with adequate oxygenation on room air. Received 2L NS and cefepime in ER. CPK was >22631. Cr was 2.4, K normal. UA with Proteinuria, hematuria and granular cast. Has marked hypoalbuminemia. CT A/L with no post renal obstruction. Has stage 3 A CKD, b/l cr 1.5 to 1.7 with Proteinuria. MM diagnosed in 2009, has been on Chemo. Imaging showed lytic bone lesion. Prior h/o paroxysmal A fib. [facility] admission has been having A fib with RVR. Currently c/o SOB and facial puffiness. Allergies Allergy/AdvReac Type Severity Reaction Status Date / Time epinephrine Allergy Intermediate STATES Verified 10/30/19 15:37 GETS A "WARNER" levofloxacin Allergy Intermediate RASH Verified 02/29/20 22:23 Sulfa (Sulfonamide Allergy Intermediate Rash Verified 02/29/20 22:24 Antibiotics) house dust Allergy Unknown Itchy Verified 02/29/20 22:24 Eye(s) Home Medications Home Medications Medication Instructions Recorded Confirmed Type Calcium 600 + D(3) 1 cap PO QAM 08/07/18 02/29/20 History acyclovir 400 mg PO BID 08/07/18 02/29/20 History aspirin 81 mg PO QAM 08/07/18 02/29/20 History cyanocobalamin (vitamin B-12) 1,000 mcg PO QAM 08/07/18 02/29/20 History [Vitamin B-12] gabapentin 300 mg PO TID 08/07/18 02/29/20 History guaifenesin [Mucinex] 600 mg PO Q12H PRN 08/07/18 02/29/20 History metoprolol tartrate 50 mg PO TID 08/07/18 02/29/20 History omega 1-bmf-mxw-fish oil [Fish Oil] 2 cap PO QAM 08/07/18 02/29/20 History pantoprazole 40 mg PO BID 08/07/18 02/29/20 History ascorbic acid (vitamin C) 500 mg 500 mg PO QAM cap 02/23/19 02/29/20 History capsule dexamethasone 4 mg tablet See Rx Instructions .ROUTE 02/23/19 02/29/20 History .COMPLEX tab hydrochlorothiazide 12.5 mg PO QAM 06/08/19 02/29/20 History potassium chloride 20 meq PO QAM 06/08/19 02/29/20 History doxepin 100 mg capsule 100 mg PO HS #90 cap 02/25/20 02/29/20 Rx acetaminophen [Tylenol Extra 500 mg PO Q6H PRN 02/29/20 02/29/20 History Strength] cetirizine 10 mg PO BID PRN 02/29/20 02/29/20 History cod liver oil 1 cap PO DAILY 02/29/20 02/29/20 History docusate sodium [Colace] 100 mg PO DAILY PRN 02/29/20 02/29/20 History flaxseed oil 1 ea MISCELLANEOUS DAILY 02/29/20 02/29/20 History fluticasone propionate [Flonase] 2 spray INTRANASAL DAILY 02/29/20 02/29/20 History Patient History Medical History (Updated 03/02/20 @ 13:18 by Isaias Alcantara MD) Acute kidney injury CKD (chronic kidney disease) Constipation GERD (gastroesophageal reflux disease) HTN (hypertension) Multiple myeloma Multiple myeloma Neuropathy BL FOOT; 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 CANCER TREATMENT Pancytopenia Paroxysmal atrial fibrillation Prediabetes Seasonal allergies Severe sepsis Surgical History History of bone marrow biopsy History of cataract surgery BL History of colonoscopy History of incision and drainage CYST - RT GROIN History of stem cell transplant History of surgery CYST REMOVED FROM COCCYX 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; 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 Family History Family/Other Family history of diabetes mellitus Social History Smoking Status: Never smoker Second Hand Exposure: No; Do You Dip or Chew Tobacco: No; Hx Alcohol Use: Yes Alcohol type: wine Hx Substance Use: No Preferred Language: Telugu Communication Ability: Effective Manager Spring Required: No Beliefs That Will Affect Care: None marital status: Single Current Living Situation: Alone Other Information That Helps Us Care for You: No Feels Safe at Home: Yes Safety Concerns: Feels Safe At This Time Assistive Devices: Glasses and Oxygen - Continuous Review of Systems Review of Systems: All systems reviewed & are unremarkable except as noted in HPI & below Physical Exam Constitutional: + ill appearing, + obese and + edematous; no acute distress Eyes: + eyelid abnormality (edematous) ENMT: external ear and nose normal, oropharynx normal Ears: no hearing impairment Neck: trachea midline Respiratory: + respiratory distress; no cough Auscultation: + diminished lung sounds and + rales Cardiovascular: Rate/Rhythm: + tachycardic and + irregularly irregular Heart Sounds: normal S1 and normal S2 Extremities: + edema Gastrointestinal (Abdomen): Inspection/Auscultation: normal bowel sounds and + abdominal edema Percussion/Palpation: abdomen nontender, no guarding and abdomen not rigid Musculoskeletal: Head/Neck/Chest: normocephalic and head atraumatic E xtremities: + upper extremity abnormal to inspection (edematous with blisters) Bilateral Skin: no rashes, warm and dry Neurologic: moves all extremities and awake; no focal motor deficits and not confused Psychiatric: A+Ox3, euthymic affect Results & Data ([facility]) Vital Signs (Past 12 Hours) Vital Signs Temp Pulse Pulse Resp BP BP BP 03/02/20 13:00 36.4 C L 130 H 20 90/61 L 03/02/20 09:19 165 H 129/71 03/02/20 09:04 165 H 20 129/71 03/02/20 08:00 84 03/02/20 07:30 36.5 C 88 18 124/76 Pulse Ox 03/02/20 13:00 94 03/02/20 09:19 03/02/20 09:04 95 03/02/20 08:00 03/02/20 07:30 96 PG Care Time/CCT Total # of Minutes Spent Total Time Spent with Patient: Total time spent is greater than 50% in coordination of care (as documented) at patient's floor/unit and/or counseling patient: Coding Level of Care Code 46378 Inpt Consult Level 5 Diagnoses Acute kidney injury N17.9 Fall W19.XXXA Pancytopenia D61.818 Rhabdomyolysis M62.82 Rhabdomyolysis type: non-traumatic (1) Rhabdomyolysis Rhabdomyolysis type: non-traumatic Qualified Code(s): M62.82 - Rhabdomyolysis
[2020-03-02] MEDS ORDERED: BUMETANIDE 2 MG in SYRINGE 0 ML IV ONE (16:45)
[2020-03-02] MEDS: AMIODARONE / D5W 360 MG/200 ML BAG IV SCH (17:06)
[2020-03-02] MEDS: guaiFENesin 600 MG TABCR PO SCH (21:12)
[2020-03-02] MEDS: DOXYCYCLINE HYCLATE 100 MG in DEXTROSE 5% 100 ML IV SCH (21:21)
--- NOTE | 2020-03-02 21:31 | Electrocardiogram Report ---
Test Reason : Blood Pressure : / mmHG Vent. Rate : 151 BPM Atrial Rate : 116 BPM P-R Int : 000 ms QRS Dur : 066 ms QT Int : 344 ms P-R-T Axes : 000 062 031 degrees QTc Int : 545 ms Sinus tachycardia with frequent Premature atrial complexes Abnormal ECG When compared with ECG of 08-JUN-2019 16:52, Vent. rate has increased BY 51 BPM Premature atrial complexes are now Present T wave inversion more evident in Inferolateral leads Confirmed by Tam Munoz ([id number]) on 03/02/2020 9:30:53 PM Referred By: REFERRED SELF Confirmed By:Tam uMnoz
[2020-03-03] MEDS ORDERED: VANCOMYCIN CONSULT ACTIVE PRN (00:58)
[2020-03-03] MEDS ORDERED: VANCOMYCIN HCL 1,500 MG in SODIUM CHLORIDE 0.9% 500 ML IV ONE (01:15)
[2020-03-03] MEDS ORDERED: VANCOMYCIN HCL 1,000 MG in SODIUM CHLORIDE 0.9% 250 ML IV ONE (01:15)
[2020-03-03] MEDS: PIPERACILLIN/TAZOBACTAM 3.375 GM in DEXTROSE 5% 100 ML IV SCH ×3 (01:53→17:54)
[2020-03-03 04:45] LABS: Hemoglobin 7.8 g/dL (14.0-18.0); Mean Corpuscular Hemoglobin 34.5 pg (25-34); Mean Corpuscular Hgb Conc 32.5 g/dL (32-36); Mean Corpuscular Volume 106.2 fL (80-100); RDW Coefficient of Variation 15.4 % (11.5-14.5); Red Blood Count 2.26 M/uL (4.7-6.1); White Blood Count 1.34 K/uL (4.8-10.8)
[2020-03-03 05:07] LABS: Platelet Count 60 K/uL (130-400)
[2020-03-03 05:17] LABS: Albumin Level 1.6 gm/dl (3.4-5.0); BUN Creatinine Ratio 11.9 (10-20); Calcium 6.7 mg/dl (8.5-10.1); Creatinine Clr Calc Pharmacy 36.3 ml/min; Est GFR (African American) 30.2; Magnesium 1.6 mg/dl (1.8-2.4); Potassium 3.6 mmol/L (3.5-5.1)
[2020-03-03 05:22] LABS: Basophils # (auto) 0.01 K/uL (0-0.2); Basophils % (auto) 0.7 %; Dohle Bodies 1+; Echinocytes 1+; Hypogranular Neutrophils 1+; Immature Granulocytes # (auto) 0.11 K/uL (0.00-0.02); Immature Granulocytes % (auto) 8.2 %; Lymphocytes # (auto) 0.24 K/uL (1.2-3.4); Lymphocytes % (auto) 17.9 %; Monocytes # (auto) 0.05 K/uL (0.11-0.59); Monocytes % (auto) 3.7 %; Neutrophils # (auto) 0.93 K/uL (1.4-6.5); Neutrophils % (auto) 69.5 %; Tear Drop Cells 1+
[2020-03-03] MEDS: AMIODARONE / D5W 360 MG/200 ML BAG IV SCH ×2 (05:44→16:45)
[2020-03-03 05:48] LABS: Albumin Globulin Ratio 0.4 (0.9-2); Bilirubin,Total 0.9 mg/dl (0.2-1); Globulin 4.4 gm/dl (2.5-4.0); Phosphorus 4.5 mg/dl (2.5-4.9)
--- NOTE | 2020-03-03 06:15 | Electrocardiogram Report ---
Test Reason : Blood Pressure : / mmHG Vent. Rate : 175 BPM Atrial Rate : 227 BPM P-R Int : 000 ms QRS Dur : 072 ms QT Int : 270 ms P-R-T Axes : 000 051 238 degrees QTc Int : 460 ms Atrial fibrillation with rapid ventricular response Low voltage QRS Abnormal ECG When compared with ECG of 29-FEB-2020 19:29, Atrial fibrillation has replaced Sinus rhythm QRS voltage has decreased Nonspecific T wave abnormality has replaced inverted T waves in Inferior leads Confirmed by Tam Munoz ([id number]) on 03/03/2020 6:15:08 AM Referred By: REFERRED SELF Confirmed By:Tam Munoz
[2020-03-03] MEDS: MAGNESIUM SULFATE / D5W 1 GM/100 ML BAG IV SCH ×2 (06:41→08:23)
--- NOTE | 2020-03-03 07:32 | Cardiology Progress Note ---
Date of Service March 03, 2020 Assessment & Plan Admission and Anticipated Discharge Date Admission Date: H EENT: 2+ carotid upstrokes no evidence of carotid bruits Lungs: Inspiratory and expiratory rhonchi throughout the lung sadler Heart regular rate and rhythm with occasional ectopy no appreciable murmurs rubs or gallops Abdomen: Soft nontender distended positive bowel sounds Extremities no clubbing cyanosis or edema he does have significant bruising on his arm Assessment & Plan (1) Paroxysmal atrial fibrillation: (2) Elevated troponin secondary to demand ischemia (3) Sepsis: Secondary to pneumonia with gram-positive cocci 4. Normal biventricular size and function by echo this admission 5. Pancytopenia secondary to sepsis 6. Elevated LFTs 7. Elevated CPK secondary to rhabdomyolysis From a cardiac standpoint he should remain on amiodarone IV at 0.5 mg/min. He seems to be maintaining sinus rhythm with it with frequent PACs. He cannot be anticoagulated at this time due to his thrombocytopenia. His echocardiogram was reviewed. His atrial fibrillation is secondary to his fevers and sepsis syndrome. He is currently followed by the last waxer in the ICU on appropriate antibiotics. We will have to watch his hemoglobin and platelets and white count at this point as they are now declining. Subjective Patient is sleeping. He was not awoken this morning. He continues to have high fevers. completely with it. With the fevers he has more confusion. At baseline His mental status is normal. Telemetry reveals sinus rhythm with PACs. Since he has been on amiodarone he has maintained sinus rhythm.
[2020-03-03] MEDS: INSULIN ASPART 100 UNITS/ML 3 ML PEN SC SCH ×4 (07:44→21:27)
[2020-03-03] MEDS: FLUTICASONE PROPIONATE NA SPR 16 GM BTL SCH (07:45)
[2020-03-03] MEDS: ASPIRIN 81 MG ECTAB PO SCH (07:45)
[2020-03-03] MEDS: METOPROLOL TARTRATE 50 MG TAB PO SCH ×3 (07:45→21:27)
[2020-03-03] MEDS: guaiFENesin 600 MG TABCR PO SCH ×2 (07:46→21:26)
[2020-03-03] MEDS: PANTOprazole 40 MG TAB PO SCH ×2 (07:46→21:26)
[2020-03-03] MEDS: CYANOCOBALAMIN 500 MCG TABLET (VITAMIN B-12) PO SCH (07:46)
[2020-03-03] MEDS: ACYCLOVIR 400 MG TAB PO SCH ×2 (07:47→21:27)
[2020-03-03] MEDS: DOXYCYCLINE HYCLATE 100 MG in DEXTROSE 5% 100 ML IV SCH ×2 (07:55→21:27)
--- NOTE | 2020-03-03 08:23 | Critical Care Progress Note ---
Date of Service March 03, 2020 Assessment & Plan (1) Atrial fibrillation with rapid ventricular response: Reason Critically Ill: 64 yo M who PMHx of multiple myeloma, currently undergoing chemotherapy who was admitted with severe sepsis. He subsequently became hypotensive, entering into A-fib with rapid ventricular response, and transferred to the ICU with possible need for vasopressor support. Overnight patient converted to sinus rhythm while on the amiodarone drip. Currently hemodynamically stable; has not required pressor support. Maintain good oxgyen saturation with minimal supplementation. The source of his sepsis is thought to be from a left lobar pneumonia, and gram positive bacteremia; currently on broad spectrum antibiotics. Neuro: - metabolic encephalopathy has resolved - holding home doxepin and gabapentin Cardiac: * A fib with RVR - spontaneously converted to sinus rhythm overnight - currently on Amiodarone drip at 0.5mls/hr - metoprolol 50mg, TID for rate control - [id number] score of 1 - holding anticoagulation given ongoing thrombocytopenia - continuous ekg monitor tech Respiratory: * Pneumonia - see below - currently saturating 94% on 3L via NC - no history of underlying lung disease GI: * Transaminitis - ALT 109, AST 494 - likely secondary to hypoperfusion (sepsis) - continue to trend * Hypoalbuminemia - Albumin low at 1.6 - likely secondary to multiple myeloma - NPO - continue Protonix BID RENAL/LYTES: * CHLOÉ - Cr 2.64, up from 1.98 - albumin low, suspect third spacing of fluid - ATN likely contributory as patient was septic upon ICU admission - patient up 11 L since admission, IV discontinued - will diurese with Bumex 2mg, IV, with hopes of improving Cr with increased forward flow - lactic acidosis improving - trend BMP - nephrology following, appreciate recs * Rhabdomyolysis - CK level trending down - fluids discontinued * Hypomagnesemia - level 1.6 - replacement ordered - calcium corrects to normal with low albumin : - azar in place, strict Is/Os ENDO: - Insulin per ICU protocol - TSH normal 1.6 HEME: * Thrombocytopenia - platelet level 60 - likely secondary to myeloma (bone marrow suppression) and sepsis - holding anticoagulation - trend CBC - no active bleeding at this time ID: * Pancytopenic - currently afebrile - patient is immunocompromised (hx multiple myeloma on chemotherapy) - 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 Fungal covered dropped today. - urine legionella antigen pending - procalcitonin elevated to 35 - Flu negative, Covid negative - MRSA swab negative - continue supplemental O2 to keep Ox sat > 92% * Gram + bacteremia - 3 of 4 blood cultures growing gram + cocci in clusters; MRSA PCR negative - continue to follow cultures - antibiotics as above - chemo port in place --> consider surgical removal in the setting of gram + bacteremia - although patient had echo on 03/01/20, which noted no valvular abnormalities. consider repeating given gram + bacteremia on 03/02 - ID teleconsult placed LINES/IV ACCESS: Peripheral IV and Azar catheter CODE STATUS: Full DVT PROPHYLAXIS: SCDs Thank you for allowing us to participate in the care of this patient. Please refer to my attending physician's documentation for any further recommendations. Admission and Anticipated Discharge Date Admission Date: February 29, 2020 Supervising Physician Co-Signing Physician Notes Dr. Doyle was the resident-physician during care of patient. I separately evaluated patient for sutherland portions of the history and the exam. I was present during the critical portion of medical decision making, and I discussed the case with the resident. I generally agree with the findings and plan except for any additions/exceptions noted. Patient continues to be febrile and tachycardic at times. He is converted to a sinus rhythm. He is not a candidate for anticoagulation given his thrombocytopenia and his low [id number] score. Continue broad-spectrum antibiotics. He is growing GPC on the latest blood culture. He does have a port in place which may need removal. Will consult infectious disease. He did have an echo 2 days ago with no evidence of vegetations, but they were not specifically looking for vegetations at that time. He may need a repeat echocardiogram if there is no clearance of bacteremia. He has a dense left upper lobe infiltrate likely a bacterial pneumonia. We have stopped her caspofungin as I suspect that there is enough evidence of bacterial infection at this time. He is mildly neutropenic. He has not required vasopressors or high amounts of oxygen at this time. His renal function is worsening. He is getting Bumex 2 mg IV daily. He is very volume overloaded. He likely has some degree of ATN. He is still a full code. Palliative care consultation may be beneficial in the near future. He will remain in the ICU for today. Subjective Patient reports that he is cold, asks to be covered up Physical Exam Constitutional: + ill appearing, + obese and cooperative Eyes: PERRL, conjunctivae normal, anicteric sclerae ENMT: external ear and nose normal, oropharynx normal Neck: normal visual inspection and trachea midline Respiratory: normal respiratory effort Auscultation: + rhonchi (present diffusely throughotu) and + wheezes (left upper lung field) Cardiovascular: Rate/Rhythm: regular rate and regular rhythm Heart Sounds: normal S1 and normal S2; no murmur Chest (Breasts): Chest: + vascular access device or port Gastrointestinal (Abdomen): normal bowel sounds, soft, nontender, no hepatosplenomegaly Skin: no rashes, warm and dry Psychiatric: Orientation: alert and oriented x 3 Genitourinary: Azar in place draining yellow urine without visible blood clots Resident Activity Tracking Resident Involvement: Resident Care Provided Care Provided: Adult Hospital Medicine
[2020-03-03] MEDS ORDERED: AZITHROMYCIN 250 MG in DEXTROSE 5% 250 ML IV SCH (09:00)
[2020-03-03] MEDS ORDERED: CASPOFUNGIN 50 MG in SODIUM CHLORIDE 0.9% 250 ML IV SCH (09:00)
[2020-03-03] MEDS ORDERED: VANCOMYCIN TROUGH ONE (09:30)
--- NOTE | 2020-03-03 10:42 | Nephrology Progress Note ---
Date of Service March 03, 2020 Assessment & Plan (1) Acute kidney injury: Mr. Collins was admitted with a fall at home, CHLOÉ with rhabdomyolysis, proteinuria, hypoalbuminemia with h/o MM. Cr was 2.4 on admission with b/l cr 1.5 to 1.7. CPK was >59996. Underlying CKD and high grade proteinuria secondary to multiple myeloma. Renal function slightly worsened, volume overloaded with NS since admission, and Hypoalbuminemia. --Recommend another dose of Bumex 2 mg now , aim for net even to slightly negative --monitor electrolyte and intake and output Will follow (2) Fall: (3) Pancytopenia: (4) Rhabdomyolysis: Admission and Anticipated Discharge Date Admission Date: February 29, 2020 Subjective Sourav was seen and evaluated in ICU this morning. Overall feeling poorly, had fever early this am, still has some SOB but. BP stable. Decent UO, net 2 L +. Renal function worsened to cr 2.5. Review of Systems Review of Systems: All systems reviewed & are unremarkable except as noted in HPI & below Physical Exam Constitutional: + ill appearing and + edematous; no acute distress Respiratory: Auscultation: + diminished lung sounds and + rales Cardiovascular: Rate/Rhythm: + tachycardic and + irregularly irregular Heart Sounds: normal S1 and normal S2 Extremities: + edema Skin: no rashes, warm and dry Neurologic: awake; no focal motor deficits and not confused Psychiatric: Orientation: alert and oriented x 3 Results & Data ([facility]) Vital Signs (Past 12 Hours) Vital Signs Temp Pulse Resp BP Pulse Ox 03/03/20 08:41 37.3 C 104 H 34 H 108/86 92 03/03/20 08:30 37.3 C 97 H 27 H 93 03/03/20 08:00 37.3 C 91 H 21 94 03/03/20 07:41 37.3 C 99 H 22 157/73 H 92 03/03/20 07:30 37.3 C 97 H 14 91 03/03/20 07:00 37.4 C 83 20 94 PG Care Time/CCT Total # of Minutes Spent Total Time Spent with Patient: Total time spent is greater than 50% in coordination of care (as documented) at patient's floor/unit and/or counseling patient: Coding Level of Care Code 37069 Subseq Hosp Care Lvl 3 Diagnoses Acute kidney injury N17.9 Fall W19.XXXA Pancytopenia D61.818 Rhabdomyolysis M62.82 Rhabdomyolysis type: non-traumatic (1) Rhabdomyolysis Rhabdomyolysis type: non-traumatic Qualified Code(s): M62.82 - Rhabdomyolysis
[2020-03-03 11:09] LABS: BUN Creatinine Ratio 11.5 (10-20); Calcium 6.7 mg/dl (8.5-10.1); Est GFR (African American) 28.8; Est GFR (Non-African American) 24.8; Potassium 3.8 mmol/L (3.5-5.1)
[2020-03-03] MEDS: ACETAMINOPHEN 1,000 MG/100 ML VIAL IV PRN (13:31)
--- NOTE | 2020-03-03 14:24 | Billing Data ---
Date of Service March 03, 2020 Coding Level of Care Code 73551 Initial Inpt Care Lvl 3
--- NOTE | 2020-03-03 15:22 | Pharmacy Report ---
Pharmacy Abx Dose Short Note - Date of Service March 03, 2020 - Assessment & Plan Assessment 64 year old M receiving vancomycin for treatment of staph species in the blood. Also receiving zosyn, doxycycline, and acyclovir. Therapy was initiated on 02/28 and d/c'd yesterday. Therapy was restarted this morning with a one time dose. A 12 hours random level was obtained to guide further dosing. ID consulted, awaiting further recs. Day # 4 of antimicrobial therapy. Plan Vancomycin * Random level this afternoon was 33.5 mcg/mL * No further dosing required today * Random level ordered for: 03/04/20 with AM labs Pharmacy will continue to follow and will adjust dose/frequency as necessary. Thank you.
--- NOTE | 2020-03-03 17:11 | Hospitalist Progress Note ---
Date of Service March 03, 2020 Assessment & Plan (1) Sepsis: Severe sepsis This patient is a 64yo C male found down at home x24 hours, with acute metabolic encephalopathy, lactic acidosis. Febrile with temperature of 107.8 /tachycardic/tachypneic on arrival. Found with RUPINDER PNA on chest x-ray. Procal elevated at 2.27. Flu negative, Covid negative MRSA swab negative Immunocompromised with port in place Blood cultures with 1/2 coagulase-negative Staphylococcus, repeat blood cultures no growth to date UA with seemingly contaminated sample, urine culture no growth Procalcitonin significantly elevated With lactic acidosis-lactate elevated at 3.6 on admission and then down to 1.9 Continues to spike significant fevers despite being on antibiotics for over 48 hours this morning. He is not neutropenic continue Zosyn, Daptomycin, Doxycycline, stop Caspofungin today -Blood pressures were a little soft when he had rapid atrial fibrillation as below-transferred down to ICU in case of need for vasopressors on 03/02 -Has received copious IV fluid resuscitation for rhabdomyolysis and now third spacing due to severe hypoalbuminemia-has developed anasarca overnight -Tylenol as needed for fevers, on a cooling blanket (2) Pneumonia: Chest x-ray with RUPNIDER socked in PNA-the source of his sepsis -Follow cultures-blood, sputum Continue antibiotics as above Follow chest x-ray -Supplemental O2 to keep pulse ox greater than 92%, currently breathing comfortably on 3L -Start Mucinex -Start Xopenex nebs as needed (3) Atrial fibrillation with rapid ventricular response: Paroxysmal atrial fibrillation with heart rates at times to the 190s Rates only improved to the 150s with IV Lopressor converted to sinus rhythm, sinus tachycardia on amiodarone, continue drip for today cardiology following -Continue Metoprolol 50mg po TID and consider titration upward as needed [id number] score is 1 -Appreciate cardiology consultation-recommends against anticoagulation at this time given higher risk for bleeding given multiple myeloma, anemia and worsening thrombocytopenia (4) CHLOÉ (acute kidney injury): With creatinine elevated at 2.4 on admission and initially improved, but now worse again to 2.6 Urinalysis on admission with granular casts,'s most likely secondary to ATN from severe sepsis He has decreased effective arterial volume secondary to hypoalbuminemia, developing anasarca from copious IV fluid administration for rhabdomyolysis Also with nonanion gap metabolic acidosis He is making urine Appreciate nephrology consultation-plan for Bumex 2 mg IV, want even or negative fluid balance next few days he is positive 11 liters for admission Follow CK for rhabdomyolysis, trending down (5) Rhabdomyolysis: CK >47317 on arrival, secondary to prolonged down time. CK increased after admission to 24,000 but is now decreased to 10,000 after copious IV fluids were given - stop fluids as he is 11 liters positive -Friedman in place, closely monitor UOP -Follow serial CK -Monitor renal function and electrolytes and replace as needed -Appreciate nephrology consultation With edema developing more in the left upper extremity which has evidence of pressure injuries and blisters as well as developing paresthesias and some weakness of the left upper extremity. He has good pulses, motor is intact distally, sensation diminished mostly in the ulnar distribution of the left hand. Watch out for development of compartment syndrome (6) Acute respiratory failure with hypoxia: Requiring 3 L nasal cannula to keep pulse ox greater than 88% Secondary to pneumonia and sepsis Wean off oxygen as able to (7) Elevated troponin: Patient denies CP, palpitations. No EKG evidence of ischemia. With acute kidney injury and rhabdomyolysis as well as rapid atrial fibrillation all contributing to myocardial demand ischemia. Did not present with acute coronary syndrome -Troponin peaked today at 1.1 and back down again. Appreciate cardiology consultation Echocardiogram without wall motion abnormalities and with preserved EF -Continue ASA 81mg po daily but would hold if platelets less than 50 -Continue home metoprolol (8) Abnormal liver enzymes: Elevated LFTs most likely secondary to sepsis and rhabdomyolysis CT abdomen/pelvis with mild hepatic steatosis, normal gallbladder and pancreas. -Repeat LFTs in the morning -Also now on amiodarone which is most likely a short-term solution (9) Multiple myeloma in remission: Patient receiving chemotherapy with Darzalex, last dose was 01/30/2020. Follows with Dr. Potts at the [facility] -LDH is quite elevated at 1000 and Uric acid normal, do not suspect tumor lysis syndrome Continue acyclovir for prophylaxis Follow CBC With multiple lytic bone lesions diffusely on imaging (10) Hypokalemia: Replaced and resolved Follow BMP and magnesium (11) Hypophosphatemia: Severely low-replaced and resolved Follow phosphorus level (12) CKD (chronic kidney disease): Baseline creatinine is around 1.4-1.7 With CHLOÉ as above -Avoid nephrotoxins -renally dose meds when appropriate -follow BMP (13) HTN (hypertension): Blood pressures are on the low side when he has rapid atrial fibrillation, but now improved after spontaneous conversion to sinus rhythm -Continue holding home HCTZ -Continue metoprolol with hold parameters (14) Fall: Likely secondary to weakness from pneumonia and sepsis CT of the cervical spine, head CT, chest/abdomen/pelvis CT without fractures or acute findings other than PNA (15) Pancytopenia: Secondary to multiple myeloma and chemotherapy as well as sepsis, possible DIC? Follow CBC in the morning Transfuse as needed (16) Prediabetes: Hemoglobin A1c elevated at 6.4% Follow Accu-Cheks NovoLog sliding scale insulin (17) Neuropathy: -We will now hold home gabapentin, doxepin while critically ill in the ICU Thought to be secondary to chemotherapy (18) Hypoalbuminemia: Albumin severely low at 1.6, likely secondary to cancer, poor nutrition, and sepsis Follow levels Third spacing (19) Paresthesia of left arm: As above, secondary to significant edema from rhabdomyolysis Watch for development of compartment syndrome Diuresing We will elevate arm on pillow (20) GERD (gastroesophageal reflux disease): Continue PPI (21) DVT prophylaxis: Heparin SQ was held by district attorney due to worsening thrombocytopenia Disposition-transferred care to ICU on 03/02 Full code Admission and Anticipated Discharge Date Admission Date: February 29, 2020 Subjective patient feeling better overall but still spiking fevers he wants to eat, will stop the NPO order discussed with Dr. Alcantara, no plans for bronchoscopy reviewed chart, reviewed labs today Review of Systems Review of Systems: All systems reviewed & are unremarkable except as noted in Subjective Constitutional: + fever, + chills, + sweats, + fatigue and + weakness Respiratory: + cough and + dyspnea Cardiovascular: no chest pain and no edema Physical Exam Constitutional: well developed, + ill appearing and + edematous; no acute distress Neck: trachea midline, no thyromegaly + thick neck Respiratory: normal respiratory effort, lungs clear to auscultation Cardiovascular: Rate/Rhythm: regular rhythm and + tachycardic Heart Sounds: normal S1 and normal S2; no murmur Vessels: no JVD Extremities: + edema (diffuse) Gastrointestinal (Abdomen): normal bowel sounds, soft, nontender, no hepatosplenomegaly Musculoskeletal: no cyanosis or clubbing, extremities motor strength 5/5 Skin: no rashes, warm and dry Lymphatic: no cervical or axillary lymphadenopathy Results & Data Results & Data ([facility]) Vital Signs (Past 12 Hours) Vital Signs Temp Pulse Resp BP Pulse Ox 03/03/20 14:00 38.7 C H 99 H 16 98 03/03/20 13:42 38.7 C H 107 H 40 H 161/77 H 96 03/03/20 13:31 38.6 C H 108 H 37 H 112/89 96 03/03/20 13:30 38.6 C H 108 H 27 H 96 03/03/20 13:00 38.4 C H 105 H 50 H 94 03/03/20 12:30 38.2 C H 105 H 36 H 94 03/03/20 12:00 38.0 C H 103 H 33 H 92 03/03/20 11:41 38.0 C H 99 H 40 H 94/73 L 91 03/03/20 11:30 37.9 C H 97 H 50 H 91 03/03/20 11:26 37.9 C H 97 H 32 H 150/90 H 90 03/03/20 11:00 37.7 C H 98 H 32 H 94 03/03/20 10:30 37.7 C H 94 H 33 H 93 03/03/20 10:00 37.6 C H 87 23 91 03/03/20 09:42 37.6 C H 88 20 133/78 92 03/03/20 09:30 37.5 C 83 29 H 91 03/03/20 09:00 37.4 C 96 H 30 H 90 03/03/20 08:41 37.3 C 104 H 34 H 108/86 92 03/03/20 08:30 37.3 C 97 H 27 H 93 03/03/20 08:00 37.3 C 91 H 21 94 03/03/20 07:41 37.3 C 99 H 22 157/73 H 92 03/03/20 07:30 37.3 C 97 H 14 91 03/03/20 07:00 37.4 C 83 20 94 Laboratory Results Laboratory Results - last 24 hr 03/01/20 03/02/20 03/03/20 19:59 20:46 04:07 WBC 1.34 L RBC 2.26 L Hgb 7.8 L Hct 24.0 L MCV 106.2 H MCH 34.5 H MCHC 32.5 RDW Std Deviation 61.0 H RDW Coeff of Elvira 15.4 H Plt Count 60 L MPV 10.0 Immature Gran % (Auto) 8.2 Neut % (Auto) 69.5 Lymph % (Auto) 17.9 [place] % (Auto) 3.7 Eos % (Auto) 0.0 Baso % (Auto) 0.7 Neut # (Auto) 0.93 L* Lymph # (Auto) 0.24 L [place] # (Auto) 0.05 L Eos # (Auto) 0.00 Baso # (Auto) 0.01 Immature Gran # (Auto) 0.11 H Hypogranular Neuts 1+ Dohle Bodies 1+ Tear Drop Cells 1+ Echinocytes 1+ Sodium Potassium Chloride Carbon Dioxide Anion Gap BUN Creatinine Est Cr Clr Drug Dosing Est GFR ( Amer) Est GFR (Non-Af Amer) BUN/Creatinine Ratio Glucose POC Glucose 109 H Calcium Phosphorus Magnesium Total Bilirubin AST ALT Alkaline Phosphatase Total Creatine Kinase Total Protein Albumin Globulin Albumin/Globulin Ratio Procalcitonin Random Vancomycin Bld Cult Staph aureus PCR Negative Blood Culture MRSA PCR Negative 03/03/20 03/03/20 03/03/20 04:07 04:07 07:43 WBC RBC Hgb Hct MCV MCH MCHC RDW Std Deviation RDW Coeff of Elvira Plt Count MPV Immature Gran % (Auto) Neut % (Auto) Lymph % (Auto) [place] % (Auto) Eos % (Auto) Baso % (Auto) Neut # (Auto) Lymph # (Auto) [place] # (Auto) Eos # (Auto) Baso # (Auto) Immature Gran # (Auto) Hypogranular Neuts Dohle Bodies Tear Drop Cells Echinocytes Sodium 142 Potassium 3.6 Chloride 114 H Carbon Dioxide 19 L Anion Gap 9.0 BUN 30 H Creatinine 2.54 H D Est Cr Clr Drug Dosing 36.3 Est GFR ( Amer) 30.2 Est GFR (Non-Af Amer) 26.0 BUN/Creatinine Ratio 11.9 Glucose 100 H POC Glucose 95 Calcium 6.7 L Phosphorus 4.5 Magnesium 1.6 L Total Bilirubin 0.9 AST 494 H ALT 109 H Alkaline Phosphatase 87 Total Creatine Kinase 62507 H Total Protein 6.0 L Albumin 1.6 L Globulin 4.4 H Albumin/Globulin Ratio 0.4 L Procalcitonin 35.10 H Random Vancomycin Bld Cult Staph aureus PCR Blood Culture MRSA PCR 03/03/20 03/03/20 03/03/20 10:34 11:21 13:52 WBC RBC Hgb Hct MCV MCH MCHC RDW Std Deviation RDW Coeff of Elvira Plt Count MPV Immature Gran % (Auto) Neut % (Auto) Lymph % (Auto) [place] % (Auto) Eos % (Auto) Baso % (Auto) Neut # (Auto) Lymph # (Auto) [place] # (Auto) Eos # (Auto) Baso # (Auto) Immature Gran # (Auto) Hypogranular Neuts Dohle Bodies Tear Drop Cells Echinocytes Sodium 142 Potassium 3.8 Chloride 113 H Carbon Dioxide 18 L Anion Gap 11.0 BUN 30 H Creatinine 2.64 H Est Cr Clr Drug Dosing 35.0 Est GFR ( Amer) 28.8 Est GFR (Non-Af Amer) 24.8 BUN/Creatinine Ratio 11.5 Glucose 112 H POC Glucose 106 H Calcium 6.7 L Phosphorus Magnesium Total Bilirubin AST ALT Alkaline Phosphatase Total Creatine Kinase Total Protein Albumin Globulin Albumin/Globulin Ratio Procalcitonin Random Vancomycin 33.5 Bld Cult Staph aureus PCR Blood Culture MRSA PCR 03/03/20 16:28 WBC RBC Hgb Hct MCV MCH MCHC RDW Std Deviation RDW Coeff of Elvira Plt Count MPV Immature Gran % (Auto) Neut % (Auto) Lymph % (Auto) [place] % (Auto) Eos % (Auto) Baso % (Auto) Neut # (Auto) Lymph # (Auto) [place] # (Auto) Eos # (Auto) Baso # (Auto) Immature Gran # (Auto) Hypogranular Neuts Dohle Bodies Tear Drop Cells Echinocytes Sodium Potassium Chloride Carbon Dioxide Anion Gap BUN Creatinine Est Cr Clr Drug Dosing Est GFR ( Amer) Est GFR (Non-Af Amer) BUN/Creatinine Ratio Glucose POC Glucose 106 H Calcium Phosphorus Magnesium Total Bilirubin AST ALT Alkaline Phosphatase Total Creatine Kinase Total Protein Albumin Globulin Albumin/Globulin Ratio Procalcitonin Random Vancomycin Bld Cult Staph aureus PCR Blood Culture MRSA PCR Medications Administered Current Inpatient Medications Acyclovir (Acyclovir 400 Mg Tab) 400 mg PO BID MIRLANDE Stop: 03/31/20 08:59 Last Admin: 03/03/20 07:47 Dose: 400 mg Documented by: Aspirin (Aspirin 81 Mg Ectab) 81 mg PO QAM [facility] Stop: 03/31/20 08:59 Last Admin: 03/03/20 07:45 Dose: 81 mg Documented by: Cyanocobalamin (Cyanocobalamin 500 Mcg Tablet (Vitamin B-12)) 1,000 mcg PO QAM MIRLANDE Stop: 03/31/20 08:59 Last Admin: 03/03/20 07:46 Dose: 1,000 mcg Documented by: Dextrose (Dextrose 50% 50 Ml Syringe) 25 - 50 ml IV UD PRN; Protocol PRN Reason: Hypoglycemia Protocol Stop: 03/31/20 00:29 Docusate Sodium (Docusate Sodium 100 Mg Cap) 100 mg PO DAILY PRN PRN Reason: Constipation Stop: 03/31/20 00:29 Fluticasone Propionate (Fluticasone Propionate Na Spr 16 Gm Btl) 2 sprays NA DAILY MIRLANDE Stop: 03/31/20 08:59 Last Admin: 03/03/20 07:45 Dose: 2 sprays Documented by: Gabapentin (Gabapentin 100 Mg Cap) 200 mg PO TID MIRLANDE Stop: 03/31/20 08:59 Last Admin: 03/02/20 08:30 Dose: 200 mg Documented by: Glucagon (Glucagon For Inj 1 Mg Vial) 1 mg SQ UD PRN; Protocol PRN Reason: Hypoglycemia Protocol Stop: 03/31/20 00:29 Glucose (Glucose 10 Tabs/Tube) 4 - 8 tabs PO UD PRN; Protocol PRN Reason: Hypoglycemia Protocol Stop: 03/31/20 00:29 Glucose (Glucose 40% Gel 15 Gm Tube) 15 - 30 gm PO UD PRN; Protocol PRN Reason: Hypoglycemia Protocol Stop: 03/31/20 00:29 Guaifenesin (Guaifenesin 600 Mg Tabcr) 1,200 mg PO Q12 MIRLANDE Stop: 04/01/20 20:59 Last Admin: 03/03/20 07:46 Dose: 1,200 mg Documented by: Heparin Sodium (Porcine) (Heparin 100 Unit/Ml 5ml Flush) 5 ml FLUSH PRN PRN PRN Reason: Flush Stop: 03/31/20 00:20 Heparin Sodium (Porcine) (Heparin Sod 5,000 Unit/0.5 Ml Vial) 7,500 units SQ Q8 MIRLANDE Stop: 03/31/20 05:59 Last Admin: 03/02/20 06:23 Dose: 7,500 units Documented by: Piperacillin Sod/Tazobactam (Sod 3.375 gm/ Dextrose) 115 mls @ 28.75 mls/hr IV Q8H [facility]; Protocol Stop: 03/08/20 17:59 Last Infusion: 03/03/20 14:23 Dose: Infused Documented by: Acetaminophen (Ofirmev) 1,000 mg in 100 mls @ 400 mls/hr IV Q8H PRN PRN Reason: fever or pain Stop: 03/04/20 11:21 Last Infusion: 03/03/20 14:23 Dose: Infused Documented by: Amiodarone HCl/Dextrose (Nexterone / D5w) 360 mg in 200 mls @ 16.667 mls/hr IV .Q12H [facility] Stop: 04/01/20 17:29 Last Admin: 03/03/20 16:45 Dose: 0.5 mg/min, 16.7 mls/hr Documented by: Doxycycline Hyclate 100 mg/ (Dextrose) 110 mls @ 55 mls/hr IV BID [facility] Stop: 03/09/20 20:59 Last Infusion: 03/03/20 09:59 Dose: Infused Documented by: Insulin Aspart (Insulin Aspart 100 Units/Ml 3 Ml Pen) 0 units SC ACHS [facility] Stop: 03/31/20 00:59 Last Admin: 03/03/20 16:46 Dose: Not Given Documented by: Levalbuterol HCl (Levalbuterol Hcl 0.63 Mg/3 Ml Neb) 0.63 mg NEB Q6R PRN PRN Reason: wheezing or SOB Stop: 04/01/20 12:59 Metoprolol Tartrate (Metoprolol Tartrate 50 Mg Tab) 50 mg PO TID [facility] Stop: 03/31/20 00:29 Last Admin: 03/03/20 13:32 Dose: 50 mg Documented by: Miscellaneous (Carbohydrates For Hypoglycemia ) 15 - 30 gm PO UD PRN PRN Reason: Hypoglycemia Protocol Stop: 03/31/20 00:29 Miscellaneous Information (Piperacill/Tazobac Consult Active) 1 ea N/A UD PRN PRN Reason: Consult Stop: 03/31/20 09:29 Miscellaneous Information (Vancomycin Consult Active) 1 ea N/A UD PRN PRN Reason: Consult Stop: 04/02/20 00:57 Pantoprazole Sodium (Pantoprazole 40 Mg Tab) 40 mg PO BID MIRLANDE Stop: 03/31/20 08:59 Last Admin: 03/03/20 07:46 Dose: 40 mg Documented by: PG Care Time/CCT Total # of Minutes Spent Total Time Spent with Patient: Total time spent is greater than 50% in coordinat ion of care (as documented) at patient's floor/unit and/or counseling patient: Coding Level of Care Code 07161 Subseq Hosp Care Lvl 3 Diagnoses Sepsis A41.9; R65.20; G93.40 Sepsis acute organ dysfunction status: with acute organ dysfunction Sepsis type: sepsis due to unspecified organism Severe sepsis acute organ dysfunction type: encephalopathy Severe sepsis shock status: without septic shock Pneumonia J18.9 Pneumonia type: due to unspecified organism Atrial fibrillation with rapid ventricular response I48.91 CHLOÉ (acute kidney injury) N17.9 Rhabdomyolysis M62.82 Rhabdomyolysis type: non-traumatic Acute respiratory failure with hypoxia J96.01 Elevated troponin R77.8 Abnormal liver enzymes R74.8 Multiple myeloma in remission C90.01 Hypokalemia E87.6 Hypophosphatemia E83.39 CKD (chronic kidney disease) N18.9 HTN (hypertension) I10 Fall W19.XXXA Pancytopenia D61.818 Prediabetes R73.03 Neuropathy G62.9 Hypoalbuminemia E88.09 Paresthesia of left arm R20.2 GERD (gastroesophageal reflux disease) K21.9 DVT prophylaxis Z29.9 (1) Sepsis Sepsis acute organ dysfunction status: with acute organ dysfunction Sepsis type: sepsis due to unspecified organism Severe sepsis acute organ dysfunction type: encephalopathy Severe sepsis shock status: without septic shock Qualified Code(s): A41.9 - Sepsis, unspecified organism; R65.20 - Severe sepsis without septic shock; G93.40 - Encephalopathy, unspecified (2) Pneumonia Pneumonia type: due to unspecified organism (3) Rhabdomyolysis Rhabdomyolysis type: non-traumatic Qualified Code(s): M62.82 - Rhabdomyolysis
[2020-03-04] MEDS: ACETAMINOPHEN 1,000 MG/100 ML VIAL IV PRN (00:50)
[2020-03-04] MEDS: PIPERACILLIN/TAZOBACTAM 3.375 GM in DEXTROSE 5% 100 ML IV SCH ×3 (02:56→18:12)
[2020-03-04 05:24] LABS: Hemoglobin 8.5 g/dL (14.0-18.0); Mean Corpuscular Hemoglobin 35.1 pg (25-34); Mean Corpuscular Volume 103.3 fL (80-100); Nucleated RBC # (auto) 0.02 K/uL (0-0); Nucleated RBC % (auto) 0.7 %; RDW Coefficient of Variation 15.5 % (11.5-14.5); RDW Standard Deviation 58.6 fL (36.4-46.3); Red Blood Count 2.42 M/uL (4.7-6.1); White Blood Count 2.91 K/uL (4.8-10.8)
[2020-03-04 05:25] LABS: Mean Platelet Volume 10.5 fL (7.4-10.4); Platelet Count 64 K/uL (130-400)
[2020-03-04 05:41] LABS: Albumin Level 1.6 gm/dl (3.4-5.0); BUN Creatinine Ratio 13.1 (10-20); Creatinine Clr Calc Pharmacy 31.6 ml/min; Est GFR (African American) 25.5; Magnesium 2.4 mg/dl (1.8-2.4); Potassium 3.5 mmol/L (3.5-5.1)
[2020-03-04 05:45] LABS: Basophils # (auto) 0.01 K/uL (0-0.2); Basophils % (auto) 0.3 %; Dohle Bodies 1+; Immature Granulocytes # (auto) 0.02 K/uL (0.00-0.02); Immature Granulocytes % (auto) 0.7 %; Lymphocytes # (auto) 0.31 K/uL (1.2-3.4); Lymphocytes % (auto) 10.7 %; Monocytes # (auto) 0.06 K/uL (0.11-0.59); Monocytes % (auto) 2.1 %; Neutrophils # (auto) 2.51 K/uL (1.4-6.5); Neutrophils % (auto) 86.2 %; Toxic Granulation Occasional; Toxic Vacuolation Occasional
[2020-03-04] MEDS ORDERED: METOPROLOL TARTRATE 1 MG/ML VIAL IV ONE (05:51)
[2020-03-04] MEDS ORDERED: METOPROLOL TARTRATE 1 MG/ML VIAL IV STA ×2 (05:51→06:02)
[2020-03-04] MEDS: AMIODARONE / D5W 360 MG/200 ML BAG IV SCH ×2 (06:00→18:37)
[2020-03-04 06:26] LABS: Albumin Globulin Ratio 0.3 (0.9-2); Bilirubin,Total 0.7 mg/dl (0.2-1); Globulin 5.1 gm/dl (2.5-4.0); Phosphorus 4.5 mg/dl (2.5-4.9); Total Protein 6.7 gm/dl (6.4-8.2)
--- NOTE | 2020-03-04 06:51 | Critical Care Progress Note ---
Date of Service March 04, 2020 Assessment & Plan (1) Atrial fibrillation with rapid ventricular response: Reason Critically Ill: 64 yo M who PMHx of multiple myeloma, currently undergoing chemotherapy who was admitted with severe sepsis. He subsequently became hypotensive, entering into A-fib with rapid ventricular response, and was transferred to the ICU with possible need for vasopressor support. He converted to sinus rhythm while on the amiodarone drip; over the past 24 hours he had a 15 minute run of recurrent A-fib with RVR that broke with 10mg of Lopressor. Fortunately, he has remained hemodynamically stable and has not required pressor support. Maintain good oxygen saturation with minimal supplementation. The source of his sepsis is thought to be from a left lobar pneumonia, and staph bacteremia; currently on broad spectrum antibiotics. He continues to spike fevers despite cooling blanket. Neuro: - metabolic encephalopathy has resolved - holding home doxepin and gabapentin Cardiac: * A fib with RVR - converted to sinus rhythm on amiodarone drop; recurrent 15 min run overnight that broke with 10mg of Lopressor - continue Amiodarone drip at 0.5mls/hr - metoprolol 50mg, TID for rate control - [id number] score of 1 - holding anticoagulation given ongoing thrombocytopenia - continuous security monitor - cause of A-fib likely his fever/sepsis - cardiology following, appreciate recs Respiratory: * Pneumonia - see below - tachypnea, RR to 30 - currently saturating 94% on 3L via NC - no history of underlying lung disease GI: * Transaminitis - ALT 102, down from 109 - AST 495, up from 494 - likely secondary to hypoperfusion (sepsis) - continue to trend * Hypoalbuminemia - Albumin low at 1.6 - likely secondary to multiple myeloma - continue Protonix BID - Full Liquid diet RENAL/LYTES: * CHLOÉ - Cr 2.92, up from 2.64; BUN increasing - 2mg Bumex given today in an effort to improve forward flow - etiology: albumin low, suspect third spacing of fluid; ATN likely contributory as patient was septic upon ICU admission - non-oliguric, IV fluids discontinued - lactic acidosis improving - trend BMP - nephrology following, appreciate recs * Rhabdomyolysis - CK level continues to trend down - fluids discontinued - patient found down for > 24 hours prior to presentation * Proteinuria - 3+ protein on UA - etiology: myeloma kidney * Hypomagnesemia - resolved - level 2.4 - calcium corrects to normal with low albumin : - azar in place, strict Is/Os ENDO: - Insulin per ICU protocol - TSH normal 1.6 HEME: * Thrombocytopenia - platelet level 64, up from 60 - likely secondary to myeloma (bone marrow suppression) and sepsis - holding anticoagulation and home aspirin - trend CBC - no active bleeding at this time * Macrocytic Anemia - Hgb 8.5, MCV 103.3 - likely secondary to myeloma (bone marrow suppression) ID: * Pancytopenic - febrile - patient is immunocompromised (hx multiple myeloma on chemotherapy) - most recent chemo infusion 5 weeks [employer] - continue acyclovir prophylaxis * Fever - ongoing despite application of cooling blanked - source: infection vs. drug vs. dysautonomia vs. CVA - patient does have ongoing PNA and gram + bacteremia, on abx - lack of generalized LAD and classic rash, drug fever/DRESS low on differential - neuro exam normal, CVA low suspicion * Pneumonia - dense left upper lobe infiltrate visualized on imaging - suspect bacterial etiology - Continue Zosyn, doxycycline and vancomycin. Fungal covered dropped 03/03 - legionella antigen pending - procalcitonin initially elevated to 35, down to 1 today - Flu negative, Covid negative - MRSA swab negative - continue supplemental O2 to keep Ox sat > 92% * Gram + bacteremia - 2 of 4 blood cultures growing gram + cocci in clusters/staph; MRSA PCR negative; repeat cultures ordered today - antibiotics as above - chemo port in place has been de-accessed--> consider surgical removal in the setting of gram + bacteremia - although patient had echo on 03/01/20, which noted no valvular abnormalities. consider repeating given gram + cocci on 03/03 - ID teleconsult placed; awaiting recommendations Integ: * Blisters - skin findings of left UE blisters appear to be consistent with bullous pemphigoid; dermatology consult placed. - no mucous membrane involvement LINES/IV ACCESS: Peripheral IV and Azar catheter CODE STATUS: Full DVT PROPHYLAXIS: SCDs Thank you for allowing us to participate in the care of this patient. Please refer to my attending physician's documentation for any further recommendations. Admission and Anticipated Discharge Date Admission Date: February 29, 2020 Supervising Physician Co-Signing Physician Notes Dr. Doyle was the resident-physician during care of patient. I separately evaluated patient for [place] portions of the history and the exam. I was present during the critical portion of medical decision making, and I discussed the case with the resident. I generally agree with the findings and plan except for any additions/exceptions noted. Patient continues to be febrile. Blood cultures growing staph species. Final speciation and sensitivities are pending. Appreciate infectious disease telehealth consult. Beta glucan is pending. We will hold off on her CT chest at this time. If repeat blood cultures are positive, will consult surgery to remove the port. Will obtain an upper extremity ultrasound on the left to rule out septic emboli. Continue Zosyn and doxycycline for the time being. Urine Legionella antigen is pending. I doubt that this is a Legionella pneumonia. We will hold off on bronchoscopy given his critical illness at this time. He is worsening 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 possibly related to myeloma kidney, ischemic ATN. Nephrology following. Continue amiodarone and metoprolol for his atrial fibrillation. Holding on anticoagulation as his chads vasc score is low and he has thrombocytopenia. Rhabdomyolysis is improving. Consulting dermatology for pemphigoid-like lesions in the left upper extremity.? Possible source,? Autoimmune process? Remain in ICU for today given tenuous status. Subjective Patient says he is slightly better than yesterday, still cold and shivering under blanket Review of Systems Review of Systems: All systems reviewed & are unremarkable except as noted in HPI & below Physical Exam Constitutional: + ill appearing, + obese and cooperative Eyes: PERRL, conjunctivae normal, anicteric sclerae ENMT: external ear and nose normal, oropharynx normal Neck: normal visual inspection and trachea midline Respiratory: normal respiratory effort Auscultation: + rhonchi (present diffusely throughotu) and + wheezes (left upper lung field) Cardiovascular: Rate/Rhythm: regular rate and regular rhythm Heart Sounds: normal S1 and normal S2; no murmur Chest (Breasts): Chest: + vascular access device or port Gastrointestinal (Abdomen): normal bowel sounds, soft, nontender, no hepatosplenomegaly Skin: no rashes, warm and dry large Blisters on left UE, now popped Psychiatric: Orientation: alert and oriented x 3 Genitourinary: Azar in place Results & Data Results & Data ([facility]) Vital Signs (Past 12 Hours) Vital Signs Pulse BP 03/04/20 06:07 132 H 127/90 03/04/20 05:59 165 H 127/90 Resident Activity Tracking Resident Involvement: Resident Care Provided Care Provided: Adult Hospital Medicine
--- NOTE | 2020-03-04 07:31 | Hospitalist Progress Note ---
Date of Service March 04, 2020 Assessment & Plan (1) Coagulase negative Staphylococcus bacteremia: now with 3 out of 4 cultures growing coag negative staph continue Zosyn IV repeat blood cultures drawn today, 03/04 likely needs port removed, made NPO after midnight might need repeat echocardiogram to firmly ruler out vegetations (2) Sepsis: Severe sepsis This patient is a 64yo C male found down at home x24 hours, with acute metabolic encephalopathy, lactic acidosis. Febrile with temperature of 107.8 /tachycardic/tachypneic on arrival. Found with RUPINDER PNA on chest x-ray. Procal elevated at 2.27. Flu negative, Covid negative MRSA swab negative Immunocompromised with port in place Blood cultures: 02/28 with coag negative staph, 03/01 with coag negative staph, repeat cultures 03/04 UA with seemingly contaminated sample, urine culture no growth Procalcitonin significantly elevated With lactic acidosis-lactate elevated at 3.6 on admission and then down to 1.9 Continues to spike significant fevers despite being on antibiotics for over 72 hours He is not neutropenic continue Zosyn, ID would prefer to use Zithromax but there is issue with QT prolongation with amiodarone -Tylenol as needed for fevers, on a cooling blanket (3) Pneumonia: Chest x-ray with RUPINDER socked in PNA-the source of his sepsis, likely a strep pneumonia -Follow cultures- blood cultures with coag neg staph Continue antibiotics as above Follow chest x-ray -Supplemental O2 to keep pulse ox greater than 92%, working harder to breathe today -Start Mucinex -Start Xopenex nebs as needed (4) Atrial fibrillation with rapid ventricular response: Paroxysmal atrial fibrillation with heart rates at times to the 190s Rates only improved to the 150s with IV Lopressor converted to sinus rhythm, sinus tachycardia on amiodarone, continue drip at 0.5mg/hr cardiology following -Continue Metoprolol 50mg po TID [id number] score is 1 -Appreciate cardiology consultation-recommends against anticoagulation at this time given higher risk for bleeding given multiple myeloma, anemia and worsening thrombocytopenia echo was largely normal (5) CHLOÉ (acute kidney injury): With creatinine elevated at 2.4 on admission and initially improved, but now worse again to 2.9 Urinalysis on admission with granular casts,'s most likely secondary to ATN from severe sepsis He has decreased effective arterial volume secondary to hypoalbuminemia, developing anasarca from copious IV fluid administration for rhabdomyolysis Also with nonanion gap metabolic acidosis He is making urine with Bumex Appreciate nephrology consultation- want even or negative fluid balance next few days he is positive 11 liters for admission Follow CK for rhabdomyolysis, trending down (6) Rhabdomyolysis: CK >07100 on arrival, secondary to prolonged down time. CK increased after admission to 24,000 but is now decreased to 7,000 after copious IV fluids were given - stop fluids 03/02 -Friedman in place, closely monitor UOP -Follow serial CK -Monitor renal function and electrolytes and replace as needed -Appreciate nephrology consultation With edema developing more in the left upper extremity which has evidence of pressure injuries and blisters as well as developing paresthesias and some weakness of the left upper extremity. He has good pulses, motor is intact distally, sensation diminished mostly in the ulnar distribution of the left hand. Watch out for development of compartment syndrome (7) Acute respiratory failure with hypoxia: Requiring 3 L nasal cannula to keep pulse ox greater than 88% Secondary to pneumonia and sepsis increased work of breathing today, tachypnea, labored breathing concern with his lobar pneumonia that he could continue to get worse pulmonary/ICU following (8) Elevated troponin: Patient denies CP, palpitations. No EKG evidence of ischemia. With acute kidney injury and rhabdomyolysis as well as rapid atrial fibrillation all contributing to myocardial demand ischemia. Did not present with acute coronary syndrome -Troponin peaked today at 1.1 and back down again. Appreciate cardiology consultation Echocardiogram without wall motion abnormalities and with preserved EF -Continue ASA 81mg po daily but would hold if platelets less than 50 -Continue home metoprolol (9) Abnormal liver enzymes: Elevated LFTs most likely secondary to sepsis and rhabdomyolysis CT abdomen/pelvis with mild hepatic steatosis, normal gallbladder and pancreas. -Repeat LFTs in the morning -Also now on amiodarone which is most likely a short-term solution (10) Multiple myeloma in remission: Patient receiving chemotherapy with Darzalex, last dose was 01/30/2020. Follows with Dr. Potts at the [facility] -LDH is quite elevated at 1000 and Uric acid normal, do not suspect tumor lysis syndrome Continue acyclovir for prophylaxis Follow CBC With multiple lytic bone lesions diffusely on imaging (11) Hypokalemia: Replaced and resolved Follow BMP and magnesium (12) Hypophosphatemia: Severely low-replaced and resolved Follow phosphorus level (13) CKD (chronic kidney disease): Baseline creatinine is around 1.4-1.7 With CHLOÉ as above -Avoid nephrotoxins -renally dose meds when appropriate -follow BMP (14) HTN (hypertension): Blood pressures are on the low side when he has rapid atrial fibrillation, but now improved after spontaneous conversion to sinus rhythm -Continue holding home HCTZ -Continue metoprolol with hold parameters (15) Fall: Likely secondary to weakness from pneumonia and sepsis CT of the cervical spine, head CT, chest/abdomen/pelvis CT without fractures or acute findings other than PNA (16) Pancytopenia: Secondary to multiple myeloma and chemotherapy as well as sepsis, possible DIC? Follow CBC in the morning Transfuse as needed (17) Prediabetes: Hemoglobin A1c elevated at 6.4% Follow Accu-Cheks NovoLog sliding scale insulin (18) Neuropathy: -We will now hold home gabapentin, doxepin while critically ill in the ICU Thought to be secondary to chemotherapy (19) Hypoalbuminemia: Albumin severely low at 1.6, likely secondary to cancer, poor nutrition, and sepsis Follow levels Third spacing (20) Paresthesia of left arm: As above, secondary to significant edema from rhabdomyolysis Watch for development of compartment syndrome Diuresing We will elevate arm on pillow (21) GERD (gastroesophageal reflux disease): Continue PPI (22) DVT prophylaxis: Heparin SQ was held by geographic information systems engineer due to worsening thrombocytopenia Disposition-transferred care to ICU on 03/02 Full code Admission and Anticipated Discharge Date Admission Date: February 29, 2020 Subjective patient sitting up today in bed, at the bedside he is breathing a little heavier today, more rapid no cough, still spiking fevers, repeat blood cultures drawn today discussed the case with infectious disease at [place], appreciate their input discussed with Dr. Alcantara in ICU, he is managing reviewed chart, reviewed labs patient tolerating full liquids, not really hungry for food no chest pain, no abdominal pain, no vomiting Review of Systems Review of Systems: All systems reviewed & are unremarkable except as noted in Subjective Constitutional: + fever, + chills, + sweats, + fatigue and + weakness Respiratory: + dyspnea Cardiovascular: + edema; no chest pain Gastrointestinal: no abdominal pain, no nausea, no vomiting, no constipation and no diarrhea/loose stools Physical Exam Constitutional: well developed, + ill appearing and + edematous; no acute distress Neck: trachea midline, no thyromegaly + thick neck Respiratory: + labored breathing, + uses accessory muscles and + tachypneic; no respiratory distress Auscultation: no crackles, no rales and no wheezes Cardiovascular: Rate/Rhythm: regular rhythm and + tachycardic Heart Sounds: normal S1 and normal S2; no murmur Vessels: no JVD Extremities: + edema (diffuse) Gastrointestinal (Abdomen): normal bowel sounds, soft, nontender, no hepatosplenomegaly Musculoskeletal: no cyanosis or clubbing, extremities motor strength 5/5 Skin: no rashes, warm and dry Lymphatic: no cervical or axillary lymphadenopathy Results & Data Results & Data ([facility]) Vital Signs (Past 12 Hours) Vital Signs Pulse BP 03/04/20 06:07 132 H 127/90 03/04/20 05:59 165 H 127/90 Laboratory Results Laboratory Results - last 24 hr 03/01/20 03/03/20 03/03/20 19:59 04:07 07:43 WBC RBC Hgb Hct MCV MCH MCHC RDW Std Deviation RDW Coeff of Elvira Plt Count MPV Immature Gran % (Auto) Neut % (Auto) Lymph % (Auto) Pershing % (Auto) Eos % (Auto) Baso % (Auto) Neut # (Auto) Lymph # (Auto) Pershing # (Auto) Eos # (Auto) Baso # (Auto) Immature Gran # (Auto) Absolute Nucleated RBC Nucleated RBC % (auto) Toxic Granulation Toxic Vacuolation Dohle Bodies Sodium Potassium Chloride Carbon Dioxide Anion Gap BUN Creatinine Est Cr Clr Drug Dosing Est GFR ( Amer) Est GFR (Non-Af Amer) BUN/Creatinine Ratio Glucose POC Glucose 95 Calcium Phosphorus Magnesium Total Bilirubin AST ALT Alkaline Phosphatase Total Creatine Kinase Total Protein Albumin Globulin Albumin/Globulin Ratio Procalcitonin 35.10 H Random Vancomycin Bld Cult Staph aureus PCR Negative Blood Culture MRSA PCR Negative 03/03/20 03/03/20 03/03/20 10:34 11:21 13:52 WBC RBC Hgb Hct MCV MCH MCHC RDW Std Deviation RDW Coeff of Elvira Plt Count MPV Immature Gran % (Auto) Neut % (Auto) Lymph % (Auto) Pershing % (Auto) Eos % (Auto) Baso % (Auto) Neut # (Auto) Lymph # (Auto) Pershing # (Auto) Eos # (Auto) Baso # (Auto) Immature Gran # (Auto) Absolute Nucleated RBC Nucleated RBC % (auto) Toxic Granulation Toxic Vacuolation Dohle Bodies Sodium 142 Potassium 3.8 Chloride 113 H Carbon Dioxide 18 L Anion Gap 11.0 BUN 30 H Creatinine 2.64 H Est Cr Clr Drug Dosing 35.0 Est GFR ( Amer) 28.8 Est GFR (Non-Af Amer) 24.8 BUN/Creatinine Ratio 11.5 Glucose 112 H POC Glucose 106 H Calcium 6.7 L Phosphorus Magnesium Total Bilirubin AST ALT Alkaline Phosphatase Total Creatine Kinase Total Protein Albumin Globulin Albumin/Globulin Ratio Procalcitonin Random Vancomycin 33.5 Bld Cult Staph aureus PCR Blood Culture MRSA PCR 03/03/20 03/03/20 03/04/20 16:28 21:14 05:17 WBC RBC Hgb Hct MCV MCH MCHC RDW Std Deviation RDW Coeff of Elvira Plt Count MPV Immature Gran % (Auto) Neut % (Auto) Lymph % (Auto) Pershing % (Auto) Eos % (Auto) Baso % (Auto) Neut # (Auto) Lymph # (Auto) Pershing # (Auto) Eos # (Auto) Baso # (Auto) Immature Gran # (Auto) Absolute Nucleated RBC Nucleated RBC % (auto) Toxic Granulation Toxic Vacuolation Dohle Bodies Sodium 141 Potassium 3.5 Chloride 112 H Carbon Dioxide 19 L Anion Gap 10.0 BUN 38 H Creatinine 2.92 H Est Cr Clr Drug Dosing 31.6 Est GFR ( Amer) 25.5 Est GFR (Non-Af Amer) 22.0 BUN/Creatinine Ratio 13.1 Glucose 107 H POC Glucose 106 H 125 H Calcium 7.0 L Phosphorus 4.5 Magnesium 2.4 Total Bilirubin 0.7 AST 495 H ALT 102 H Alkaline Phosphatase 183 H D Total Creatine Kinase 7223 H Total Protein 6.7 Albumin 1.6 L Globulin 5.1 H Albumin/Globulin Ratio 0.3 L Procalcitonin Random Vancomycin Bld Cult Staph aureus PCR Blood Culture MRSA PCR 03/04/20 03/04/20 03/04/20 05:17 05:17 07:24 WBC 2.91 L RBC 2.42 L Hgb 8.5 L Hct 25.0 L MCV 103.3 H MCH 35.1 H MCHC 34.0 RDW Std Deviation 58.6 H RDW Coeff of Elvira 15.5 H Plt Count 64 L MPV 10.5 H Immature Gran % (Auto) 0.7 Neut % (Auto) 86.2 Lymph % (Auto) 10.7 Pershing % (Auto) 2.1 Eos % (Auto) 0.0 Baso % (Auto) 0.3 Neut # (Auto) 2.51 Lymph # (Auto) 0.31 L Pershing # (Auto) 0.06 L Eos # (Auto) 0.00 Baso # (Auto) 0.01 Immature Gran # (Auto) 0.02 Absolute Nucleated RBC 0.02 H Nucleated RBC % (auto) 0.7 Toxic Granulation Occasional Toxic Vacuolation Occasional Dohle Bodies 1+ Sodium Potassium Chloride Carbon Dioxide Anion Gap BUN Creatinine Est Cr Clr Drug Dosing Est GFR ( Amer) Est GFR (Non-Af Amer) BUN/Creatinine Ratio Glucose POC Glucose 114 H Calcium Phosphorus Magnesium Total Bilirubin AST ALT Alkaline Phosphatase Total Creatine Kinase Total Protein Albumin Globulin Albumin/Globulin Ratio Procalcitonin Random Vancomycin Pending Bld Cult Staph aureus PCR Blood Culture MRSA PCR Microbiology 03/01/20 19:59 Blood Aerobic Blood Culture - Final Coag neg staph not lugdunensis 03/01/20 19:59 Blood Anaerobic Blood Culture - Final 03/01/20 19:59 Blood Aerobic Blood Culture - Preliminary Staphylococcus species 03/01/20 19:59 Blood Anaerobic Blood Culture - Preliminary No growth in Anaerobic bottle after 48 hours. 02/29/20 20:30 Blood Aerobic Blood Culture - Preliminary No growth in Aerobic bottle after 48 hours. 02/29/20 20:30 Blood Anaerobic Blood Culture - Preliminary No growth in Anaerobic bottle after 48 hours. 02/29/20 20:01 Blood Aerobic Blood Culture - Preliminary Coag neg staph not lugdunensis 02/29/20 20:01 Blood Anaerobic Blood Culture - Preliminary No growth in Anaerobic bottle after 48 hours. 03/02/20 05:30 Blood Fungal Smear - Final 02/29/20 21:48 Urine,Straight Cath Urine Culture - Final No growth - less than 1,000 colonies/mL. Medications Administered Current Inpatient Medications Acyclovir (Acyclovir 400 Mg Tab) 400 mg PO BID MIRLANDE Stop: 03/31/20 08:59 Last Admin: 03/03/20 21:27 Dose: 400 mg Documented by: Aspirin (Aspirin 81 Mg Ectab) 81 mg PO QAM [facility] Stop: 03/31/20 08:59 Last Admin: 03/03/20 07:45 Dose: 81 mg Documented by: Cyanocobalamin (Cyanocobalamin 500 Mcg Tablet (Vitamin B-12)) 1,000 mcg PO QAM MIRLANDE Stop: 03/31/20 08:59 Last Admin: 03/03/20 07:46 Dose: 1,000 mcg Documented by: Dextrose (Dextrose 50% 50 Ml Syringe) 25 - 50 ml IV UD PRN; Protocol PRN Reason: Hypoglycemia Protocol Stop: 03/31/20 00:29 Docusate Sodium (Docusate Sodium 100 Mg Cap) 100 mg PO DAILY PRN PRN Reason: Constipation Stop: 03/31/20 00:29 Fluticasone Propionate (Fluticasone Propionate Na Spr 16 Gm Btl) 2 sprays NA DAILY MIRLANDE Stop: 03/31/20 08:59 Last Admin: 03/03/20 07:45 Dose: 2 sprays Documented by: Gabapentin (Gabapentin 100 Mg Cap) 200 mg PO TID MIRLANDE Stop: 03/31/20 08:59 Last Admin: 03/02/20 08:30 Dose: 200 mg Documented by: Glucagon (Glucagon For Inj 1 Mg Vial) 1 mg SQ UD PRN; Protocol PRN Reason: Hypoglycemia Protocol Stop: 03/31/20 00:29 Glucose (Glucose 10 Tabs/Tube) 4 - 8 tabs PO UD PRN; Protocol PRN Reason: Hypoglycemia Protocol Stop: 03/31/20 00:29 Glucose (Glucose 40% Gel 15 Gm Tube) 15 - 30 gm PO UD PRN; Protocol PRN Reason: Hypoglycemia Protocol Stop: 03/31/20 00:29 Guaifenesin (Guaifenesin 600 Mg Tabcr) 1,200 mg PO Q12 MIR[facility]ANDE Stop: 04/01/20 20:59 Last Admin: 03/03/20 21:26 Dose: 1,200 mg Documented by: Heparin Sodium (Porcine) (Heparin 100 Unit/Ml 5ml Flush) 5 ml FLUSH PRN PRN PRN Reason: Flush Stop: 03/31/20 00:20 Heparin Sodium (Porcine) (Heparin Sod 5,000 Unit/0.5 Ml Vial) 7,500 units SQ Q8 MIRLANDE Stop: 03/31/20 05:59 Last Admin: 03/02/20 06:23 Dose: 7,500 units Documented by: Piperacillin Sod/Tazobactam (Sod 3.375 gm/ Dextrose) 115 mls @ 28.75 mls/hr IV Q8H [facility]; Protocol Stop: 03/08/20 17:59 Last Infusion: 03/04/20 07:16 Dose: Infused Documented by: Acetaminophen (Ofirmev) 1,000 mg in 100 mls @ 400 mls/hr IV Q8H PRN PRN Reason: fever or pain Stop: 03/04/20 11:21 Last Infusion: 03/04/20 01:06 Dose: Infused Documented by: Amiodarone HCl/Dextrose (Nexterone / D5w) 360 mg in 200 mls @ 16.667 mls/hr IV .Q12H [facility] Stop: 04/01/20 17:29 Last Admin: 03/04/20 06:00 Dose: 0.5 mg/min, 16.7 mls/hr Documented by: Doxycycline Hyclate 100 mg/ (Dextrose) 110 mls @ 55 mls/hr IV BID [facility] Stop: 03/09/20 20:59 Last Infusion: 03/03/20 23:35 Dose: Infused Documented by: Insulin Aspart (Insulin Aspart 100 Units/Ml 3 Ml Pen) 0 units SC ACHS [facility] Stop: 03/31/20 00:59 Last Admin: 03/03/20 21:27 Dose: Not Given Documented by: Levalbuterol HCl (Levalbuterol Hcl 0.63 Mg/3 Ml Neb) 0.63 mg NEB Q6R PRN PRN Reason: wheezing or SOB Stop: 04/01/20 12:59 Metoprolol Tartrate (Metoprolol Tartrate 50 Mg Tab) 50 mg PO TID [facility] Stop: 03/31/20 00:29 Last Admin: 03/03/20 21:27 Dose: 50 mg Documented by: Miscellaneous (Carbohydrates For Hypoglycemia ) 15 - 30 gm PO UD PRN PRN Reason: Hypoglycemia Protocol Stop: 03/31/20 00:29 Miscellaneous Information (Piperacill/Tazobac Consult Active) 1 ea N/A UD PRN PRN Reason: Consult Stop: 03/31/20 09:29 Miscellaneous Information (Vancomycin Consult Active) 1 ea N/A UD PRN PRN Reason: Consult Stop: 04/02/20 00:57 Pantoprazole Sodium (Pantoprazole 40 Mg Tab) 40 mg PO BID MIRLANDE Stop: 03/31/20 08:59 Last Admin: 03/03/20 21:26 Dose: 40 mg Documented by: PG Care Time/CCT Total # of Minutes Spent Total Time Spent with Patient: Total time spent is greater than 50% in coordination of care (as documented) at patient's floor/unit and/or counseling patient: Coding Level of Care Code 54722 Subseq Hosp Care Lvl 3 Diagnoses Coagulase negative Staphylococcus bacteremia R78.81; B95.7 Sepsis A41.9; R65.20; G93.40 Sepsis acute organ dysfunction status: with acute organ dysfunction Sepsis type: sepsis due to unspecified organism Severe sepsis acute organ dysfunction type: encephalopathy Severe sepsis shock status: without septic shock Pneumonia J18.9 Pneumonia type: due to unspecified organism Atrial fibrillation with rapid ventricular response I48.91 CHLOÉ (acute kidney injury) N17.9 Rhabdomyolysis M62.82 Rhabdomyolysis type: non-traumatic Acute respiratory failure with hypoxia J96.01 Elevated troponin R77.8 Abnormal liver enzymes R74.8 Multiple myeloma in remission C90.01 Hypokalemia E87.6 Hypophosphatemia E83.39 CKD (chronic kidney disease) N18.9 HTN (hypertension) I10 Fall W19.XXXA Pancytopenia D61.818 Prediabetes R73.03 Neuropathy G62.9 Hypoalbuminemia E88.09 Paresthesia of left arm R20.2 GERD (gastroesophageal reflux disease) K21.9 DVT prophylaxis Z29.9 (1) Rhabdomyolysis Rhabdomyolysis type: non-traumatic Qualified Code(s): M62.82 - Rhabdomyolysis (2) Sepsis Sepsis acute organ dysfunction status: with acute organ dysfunction Sepsis type: sepsis due to unspecified organism Severe sepsis acute organ dysfunction type: encephalopathy Severe sepsis shock status: without septic shock Qualified Code(s): A41.9 - Sepsis, unspecified organism; R65.20 - Severe sepsis without septic shock; G93.40 - Encephalopathy, unspecified (3) Pneumonia Pneumonia type: due to unspecified organism
[2020-03-04] MEDS: INSULIN ASPART 100 UNITS/ML 3 ML PEN SC SCH ×4 (07:36→21:48)
[2020-03-04] MEDS ORDERED: BUMETANIDE 1 MG TAB PO ONE (07:42)
[2020-03-04] MEDS: FLUTICASONE PROPIONATE NA SPR 16 GM BTL SCH (08:13)
[2020-03-04] MEDS: METOPROLOL TARTRATE 50 MG TAB PO SCH ×3 (08:13→21:50)
[2020-03-04] MEDS: guaiFENesin 600 MG TABCR PO SCH ×2 (08:15→21:50)
[2020-03-04] MEDS: PANTOprazole 40 MG TAB PO SCH ×2 (08:15→21:51)
[2020-03-04] MEDS: ACYCLOVIR 400 MG TAB PO SCH ×2 (08:16→21:49)
[2020-03-04] MEDS: CYANOCOBALAMIN 500 MCG TABLET (VITAMIN B-12) PO SCH (08:16)
--- NOTE | 2020-03-04 09:22 | Cardiology Progress Note ---
Date of Service March 04, 2020 Assessment & Plan Admission and Anticipated Discharge Date Admission Date: February 29, 2020 Subjective He looks much better than yesterday. He is talking in sentences he denies any further fevers but he does have a cooling blanket on. He is able to talk in sentences. He denies any palpitations or fluttering even when he is had atrial fibrillation. Denies any chest pain or chest pressure. He is eating this morning. He denies any lightheadedness or dizziness. He does have some underlying shortness of breath H EENT: 2+ carotid upstrokes no evidence of carotid bruits Lungs: Inspiratory and expiratory rhonchi throughout the lung sadler Heart regular rate and rhythm no appreciable murmurs rubs or gallops Abdomen: Soft nontender distended positive bowel sounds Extremities no clubbing cyanosis with mild edema he does have significant bruising on his arm Assessment & Plan (1) Paroxysmal atrial fibrillation: (2) Elevated troponin secondary to demand ischemia (3) Sepsis: Secondary to pneumonia with gram-positive cocci 4. Normal biventricular size and function by echo this admission 5. Pancytopenia secondary to sepsis 6. Elevated LFTs 7. Elevated CPK secondary to rhabdomyolysis 8. Acute on chronic kidney disease From a cardiac standpoint he should remain on amiodarone IV at 0.5 mg/min. If he has recurrent extended episodes of atrial fibrillation the amiodarone drip can be increased to 1 mg/min. He cannot be anticoagulated at this time due to his thrombocytopenia. I would prefer to allow him to have a higher blood pressure to perfuse his kidneys but if he continues to have recurrent atrial arrhythmias his metoprolol can be increased to 50 mg p.o. every 6 hours. His echocardiogram was reviewed. His atrial fibrillation is secondary to his fevers and sepsis syndrome. I do wonder if his atrial fibrillation is not exacerbated by underlying obstructive sleep apnea that he is known to have He is currently followed by the utility repairer in the ICU on appropriate antibiotics. His CBC is currently improving but his renal function appears worse. His urine output has been good though. He does appear very edematous in his face with a very low albumin. he would benefit from additional doses of diuretics in discussion with the renal service.. Results & Data ([facility]) Vital Signs (Past 12 Hours) Vital Signs Temp Pulse Resp BP Pulse Ox 03/04/20 07:00 37.2 C 99 H 27 H 93 03/04/20 06:41 37.2 C 95 H 28 H 146/106 H 93 03/04/20 06:07 132 H 127/90 03/04/20 06:00 37.1 C 144 H 34 H 89 L 03/04/20 05:59 165 H 127/90 03/04/20 05:57 37.1 C 153 H 37 H 127/90 94 03/04/20 05:00 36.8 C 115 H 33 H 94 03/04/20 04:41 36.9 C 102 H 30 H 140/102 H 94 03/04/20 04:00 37.1 C 100 H 27 H 96 03/04/20 03:56 37.0 C 90 24 129/96 95 03/04/20 03:00 37.7 C H 100 H 39 H 97 03/04/20 02:41 37.8 C H 106 H 22 117/84 97 03/04/20 02:00 38.2 C H 103 H 24 98 03/04/20 01:42 38.4 C H 113 H 30 H 124/91 97 03/04/20 01:00 38.8 C H 111 H 27 H 94 03/04/20 00:42 38.8 C H 109 H 48 H 164/71 H 94 03/04/20 00:00 38.9 C H 110 H 29 H 94 03/03/20 23:41 39.0 C H 106 H 24 147/83 H 94 03/03/20 23:00 39.0 C H 104 H 25 H 94 03/03/20 22:52 38.9 C H 104 H 29 H 145/106 H 95 03/03/20 22:41 38.9 C H 99 H 39 H 145/106 H 94 03/03/20 22:00 38.8 C H 109 H 39 H 95 03/03/20 21:42 38.6 C H 123 H 33 H 112/92 93
[2020-03-04] MEDS: DOXYCYCLINE HYCLATE 100 MG in DEXTROSE 5% 100 ML IV SCH ×2 (09:43→21:45)
--- NOTE | 2020-03-04 11:37 | Billing Data ---
Date of Service March 04, 2020 Coding Level of Care Code 05983 Initial Inpt Care Lvl 3
--- NOTE | 2020-03-04 11:48 | Nephrology Progress Note ---
Date of Service March 04, 2020 Assessment & Plan (1) Acute kidney injury: Mr. Collins was admitted with a fall at home, CHLOÉ with rhabdomyolysis, proteinuria, hypoalbuminemia with h/o MM. Cr was 2.4 on admission with b/l cr 1.5 to 1.7. CPK was >88400. Underlying CKD and high grade proteinuria secondary to multiple myeloma. CHLOÉ with rhabdomyolysis, hypoalbuminemia and intravascular volume depletion with 3rd spacing with history of nephrotic syndrome secondary to multiple myeloma. Vanco trough level was elevated at yesterday at 34 which slightly dropped to 23. Renal function continues to worsen, creatinine up to 2.9, electrolyte remained acceptable. CPK continues to improve, around 7000 today --continue to use diuretics as needed to keep net negative, still total 12 L positive since admission --monitor electrolyte, renal function daily and intake and output Will follow (2) Fall: (3) Pancytopenia: (4) Rhabdomyolysis: Admission and Anticipated Discharge Date Admission Date: February 29, 2020 Subjective Sourav was seen and evaluated in ICU this morning. Overall feeling poorly, had fever and chills early this am, still has some SOB but. BP stable. Decent UO, net 2 L +. Renal function worsened to cr 2.9. Review of Systems Review of Systems: All systems reviewed & are unremarkable except as noted in HPI & below Physical Exam Constitutional: + ill appearing, + obese and + edematous; no acute distress Respiratory: + respiratory distress Auscultation: + crackles Cardiovascular: Rate/Rhythm: + tachycardic and + irregularly irregular Heart Sounds: normal S1 and normal S2 Extremities: + edema Skin: no rashes, warm and dry Neurologic: awake; no focal motor deficits and not confused Psychiatric: A+Ox3, euthymic affect Results & Data ([facility]) Vital Signs (Past 12 Hours) Vital Signs Temp Pulse Resp BP Pulse Ox 03/04/20 07:00 37.2 C 99 H 27 H 93 03/04/20 06:41 37.2 C 95 H 28 H 146/106 H 93 03/04/20 06:07 132 H 127/90 03/04/20 06:00 37.1 C 144 H 34 H 89 L 03/04/20 05:59 165 H 127/90 03/04/20 05:57 37.1 C 153 H 37 H 127/90 94 03/04/20 05:00 36.8 C 115 H 33 H 94 03/04/20 04:41 36.9 C 102 H 30 H 140/102 H 94 03/04/20 04:00 37.1 C 100 H 27 H 96 03/04/20 03:56 37.0 C 90 24 129/96 95 03/04/20 03:00 37.7 C H 100 H 39 H 97 03/04/20 02:41 37.8 C H 106 H 22 117/84 97 03/04/20 02:00 38.2 C H 103 H 24 98 03/04/20 01:42 38.4 C H 113 H 30 H 124/91 97 03/04/20 01:00 38.8 C H 111 H 27 H 94 03/04/20 00:42 38.8 C H 109 H 48 H 164/71 H 94 03/04/20 00:00 38.9 C H 110 H 29 H 94 PG Care Time/CCT Total # of Minutes Spent Total Time Spent with Patient: Total time spent is greater than 50% in coordina tion of care (as documented) at patient's floor/unit and/or counseling patient: Coding Level of Care Code 20668 Subseq Hosp Care Lvl 3 Diagnoses Acute kidney injury N17.9 Fall W19.XXXA Pancytopenia D61.818 Rhabdomyolysis M62.82 Rhabdomyolysis type: non-traumatic (1) Rhabdomyolysis Rhabdomyolysis type: non-traumatic Qualified Code(s): M62.82 - Rhabdomyolysis
--- NOTE | 2020-03-04 12:56 | XRay Report ---
XR chest 1V portable CLINICAL HISTORY: Pneumonia follow-up study. COMPARISON STUDY: 03/02/2020 FINDINGS: The heart remains enlarged. There is a left-sided A-Port catheter. There is progressive lef t upper lobe pulmonary consolidation. There are equivocal trace effusions.[ IMPRESSION: Worsening left upper lobe pulmonary consolidation. ACT 112: Negative or not required by law. Electronically signed by: Joselo Koch M.D. 03/04/2020 12:55 PM
--- NOTE | 2020-03-04 13:33 | Ultrasound Report ---
US venous doppler UE LT CLINICAL HISTORY: Left arm pain and edema COMPARISON STUDY: No previous studies for comparison. FINDINGS: Grayscale and color flow imaging was performed. The examination was limited, due to edema a nd overlying bandages. There is nonvisualization of of portions of the subclavian, basilic, and ulnar vein. IMPRESSION: 1. Moderately limited study from a technical standpoint. 2. No DVT visualized however portions of the left subclavian basilic and ulnar veins were not visuali zed ACT 112: Negative or not required by law. Electronically signed by: Joselo Koch M.D. 03/04/2020 1:31 PM
--- NOTE | 2020-03-04 16:01 | Dermatology Consultation ---
Date of Consultation March 04, 2020 Assessment & Plan (1) Blister: Edema blisters: - These have developed due to acute onset of generalized swelling/anasarca likely related to aggressive volume resuscitation since admission with his history of rhabdomyolysis. These bulla do not represent bullous pemphigoid and should gradually resolve as his 3rd spacing reduces. No signs of secondary infection on exam. - Keep arm elevated as much as possible above the level of the heart to help with lymphatic drainage. - Agree with current daily wound care covering the erosions/prior blister sites with Aquacel, then ABD pad, then gauze wrap. - Optimize volume status as per primary team. - Call with any changes and I am happy to re-evaluate if needed. Present on Admission?: No History of Present Illness Reason for Consultation: Blisters on left arm Requesting Physician: Madelin Doyle MD Attending Physician: Geovanny Link DO History of Present Illness Patient is a 64-year old male with past medical history of multiple myeloma, atrial fibrillation and GERD who was admitted to [facility] on 03/01/2020 with acute metabolic encephalopathy and possible sepsis after being found down at home. Patient has had a somewhat complicated admission necessitating transfer to the ICU on 03/02/2020 due to persistent fevers and hypotension. Upon admission he was in rhabdomyolysis which required copious IV fluid resuscitation. This also led to the development of anasarca due to low albumin. I have been consulted to evaluate some blisters on the left upper arm. Patient denies any itching associated with the skin. He denies any history of skin issues/rashes or blistering in the past. He was seen by wound nursing earlier today and had the areas on the left forearm wrapped. He also reports that they have been trying to keep it more elevated to help with the swelling, which he believes is somewhat improved over the past day. He denies any other complaints related to the skin today. Allergies Allergy/AdvReac Type Severity Reaction Status Date / Time epinephrine Allergy Intermediate STATES Verified 10/30/19 15:37 GETS A "WARNER" levofloxacin Allergy Intermediate RASH Verified 02/29/20 22:23 Sulfa (Sulfonamide Allergy Intermediate Rash Verified 02/29/20 22:24 Antibiotics) house dust Allergy Unknown Itchy Verified 02/29/20 22:24 Eye(s) Home Medications Home Medications Medication Instructions Recorded Confirmed Type Calcium 600 + D(3) 1 cap PO QAM 08/07/18 02/29/20 History acyclovir 400 mg PO BID 08/07/18 02/29/20 History aspirin 81 mg PO QAM 08/07/18 02/29/20 History cyanocobalamin (vitamin B-12) 1,000 mcg PO QAM 08/07/18 02/29/20 History [Vitamin B-12] gabapentin 300 mg PO TID 08/07/18 02/29/20 History guaifenesin [Mucinex] 600 mg PO Q12H PRN 08/07/18 02/29/20 History metoprolol tartrate 50 mg PO TID 08/07/18 02/29/20 History omega [id number] oil [Fish Oil] 2 cap PO QAM 08/07/18 02/29/20 History pantoprazole 40 mg PO BID 08/07/18 02/29/20 History ascorbic acid (vitamin C) 500 mg 500 mg PO QAM cap 02/23/19 02/29/20 History capsule dexamethasone 4 mg tablet See Rx Instructions .ROUTE 02/23/19 02/29/20 History .COMPLEX tab hydrochlorothiazide 12.5 mg PO QAM 06/08/19 02/29/20 History potassium chloride 20 meq PO QAM 06/08/19 02/29/20 History doxepin 100 mg capsule 100 mg PO HS #90 cap 02/25/20 02/29/20 Rx acetaminophen [Tylenol Extra 500 mg PO Q6H PRN 02/29/20 02/29/20 History Strength] cetirizine 10 mg PO BID PRN 02/29/20 02/29/20 History cod liver oil 1 cap PO DAILY 02/29/20 02/29/20 History docusate sodium [Colace] 100 mg PO DAILY PRN 02/29/20 02/29/20 History flaxseed oil 1 ea MISCELLANEOUS DAILY 02/29/20 02/29/20 History fluticasone propionate [Flonase] 2 spray INTRANASAL DAILY 02/29/20 02/29/20 History Patient History Medical History (Updated 03/04/20 @ 16:40 by Jim Vale MD) Acute kidney injury CKD (chronic kidney disease) Constipation GERD (gastroesophageal reflux disease) HTN (hypertension) Multiple myeloma Multiple myeloma Neuropathy BL FOOT; 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 CANCER TREATMENT Pancytopenia Paroxysmal atrial fibrillation Prediabetes Seasonal allergies Severe sepsis Surgical History History of bone marrow biopsy History of cataract surgery BL History of colonoscopy History of incision and drainage CYST - RT GROIN History of stem cell transplant History of surgery CYST REMOVED FROM COCCYX 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; 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 Family History Family/Other Family history of diabetes mellitus Social History Smoking Status: Never smoker Second Hand Exposure: No; Do You Dip or Chew Tobacco: No; Hx Alcohol Use: Yes Alcohol type: wine Hx Substance Use: No Preferred Language: Armenian Communication Ability: Effective Quality Assurance Technician Required: No Beliefs That Will Affect Care: None marital status: Single Current Living Situation: Alone Other Information That Helps Us Care for You: No Feels Safe at Home: Yes Safety Concerns: Feels Safe At This Time Assistive Devices: Oxygen - Continuous Review of Systems Review of Systems: All systems reviewed & are unremarkable except as noted in HPI & below Physical Exam Constitutional: well developed, + obese and + edematous Eyes: ocular mucosa WNL ENMT: oral mucosa WNL without erosions/ulcerations Skin: +2 tense bullae without surrounding erythema on the dorsal hand with associated pitting edema +few remaining small bullae with surrounding clean-based superficial erosions and associated pitting edema on the dorsal forearm +pitting edema in the right hand/forearm, left lower leg, right lower leg Results & Data ([facility]) Vital Signs (Past 12 Hours) Vital Signs Temp Pulse Resp BP Pulse Ox 03/04/20 13:00 38.2 C H 103 H 44 H 95 03/04/20 12:56 38.2 C H 103 H 38 H 159/86 H 95 03/04/20 12:00 37.9 C H 100 H 23 97 03/04/20 11:58 37.9 C H 102 H 21 130/85 96 03/04/20 11:00 37.7 C H 99 H 19 95 03/04/20 10:41 37.5 C 96 H 34 H 146/80 H 95 03/04/20 10:00 37.2 C 91 H 29 H 95 03/04/20 09:41 37.1 C 90 24 145/89 H 96 03/04/20 09:00 37.0 C 94 H 24 95 03/04/20 08:00 37.0 C 97 H 34 H 94 03/04/20 07:41 37.2 C 102 H 21 144/76 H 95 03/04/20 07:00 37.2 C 99 H 27 H 93 03/04/20 06:41 37.2 C 95 H 28 H 146/106 H 93 03/04/20 06:07 132 H 127/90 03/04/20 06:00 37.1 C 144 H 34 H 89 L 03/04/20 05:59 165 H 127/90 03/04/20 05:57 37.1 C 153 H 37 H 127/90 94 03/04/20 05:00 36.8 C 115 H 33 H 94 03/04/20 04:41 36.9 C 102 H 30 H 140/102 H 94 03/04/20 04:00 37.1 C 100 H 27 H 96 Laboratory Results 03/04/20 03/04/20 03/04/20 Range/Units 16:23 11:18 08:49 WBC (4.8-10.8) K/uL RBC (4.7-6.1) M/uL Hgb (14.0-18.0) g/dL Hct (42-52) % MCV (80-100) fL MCH (25-34) pg MCHC (32-36) g/dL RDW Std Deviation (36.4-46.3) fL RDW Coeff of Elvira (11.5-14.5) % Plt Count (130-400) K/uL MPV (7.4-10.4) fL Immature Gran % (Auto) % Neut % (Auto) % Lymph % (Auto) % [place] % (Auto) % Eos % (Auto) % Baso % (Auto) % Neut # (Auto) (1.4-6.5) K/uL Lymph # (Auto) (1.2-3.4) K/uL [place] # (Auto) (0.11-0.59) K/uL Eos # (Auto) (0-0.5) K/uL Baso # (Auto) (0-0.2) K/uL Immature Gran # (Auto) (0.00-0.02) K/uL Absolute Nucleated RBC (0-0) K/uL Nucleated RBC % (auto) % Toxic Granulation Toxic Vacuolation Dohle Bodies Sodium (136-145) mmol/L Potassium (3.5-5.1) mmol/L Chloride (98-107) mmol/L Carbon Dioxide (21-32) mmol/L Anion Gap (3-11) BUN (7-18) mg/dl Creatinine (0.6-1.4) mg/dl Est Cr Clr Drug Dosing ml/min Est GFR ( Amer) Est GFR (Non-Af Amer) BUN/Creatinine Ratio (-20) Glucose (70-99) mg/dl POC Glucose 124 H 132 H (70-99) mg/dl Calcium (8.5-10.1) mg/dl Phosphorus (2.5-4.9) mg/dl Magnesium (1.8-2.4) mg/dl Total Bilirubin (0.2-1) mg/dl AST (15-37) U/L ALT (12-78) U/L Alkaline Phosphatase (45-117) U/L Total Creatine Kinase (39-308) U/L Total Protein (6.4-8.2) gm/dl Albumin (3.4-5.0) gm/dl Globulin (2.5-4.0) gm/dl Albumin/Globulin Ratio (0.9-2) Procalcitonin 1.25 H (0-0.5) ng/ml Random Vancomycin mcg/ml 03/04/20 03/04/20 03/04/20 Range/Units 07:24 05:17 05:17 WBC 2.91 L (4.8-10.8) K/uL RBC 2.42 L (4.7-6.1) M/uL Hgb 8.5 L (14.0-18.0) g/dL Hct 25.0 L (42-52) % MCV 103.3 H (80-100) fL MCH 35.1 H (25-34) pg MCHC 34.0 (32-36) g/dL RDW Std Deviation 58.6 H (36.4-46.3) fL RDW Coeff of Elvira 15.5 H (11.5-14.5) % Plt Count 64 L (130-400) K/uL MPV 10.5 H (7.4-10.4) fL Immature Gran % (Auto) 0.7 % Neut % (Auto) 86.2 % Lymph % (Auto) 10.7 % [place] % (Auto) 2.1 % Eos % (Auto) 0.0 % Baso % (Auto) 0.3 % Neut # (Auto) 2.51 (1.4-6.5) K/uL Lymph # (Auto) 0.31 L (1.2-3.4) K/uL [place] # (Auto) 0.06 L (0.11-0.59) K/uL Eos # (Auto) 0.00 (0-0.5) K/uL Baso # (Auto) 0.01 (0-0.2) K/uL Immature Gran # (Auto) 0.02 (0.00-0.02) K/uL Absolute Nucleated RBC 0.02 H (0-0) K/uL Nucleated RBC % (auto) 0.7 % Toxic Granulation Occasional Toxic Vacuolation Occasional Dohle Bodies 1+ Sodium (136-145) mmol/L Potassium (3.5-5.1) mmol/L Chloride (98-107) mmol/L Carbon Dioxide (21-32) mmol/L Anion Gap (3-11) BUN (7-18) mg/dl Creatinine (0.6-1.4) mg/dl Est Cr Clr Drug Dosing ml/min Est GFR ( Amer) Est GFR (Non-Af Amer) BUN/Creatinine Ratio (10-20) Glucose (70-99) mg/dl POC Glucose 114 H (70-99) mg/dl Calcium (8.5-10.1) mg/dl Phosphorus (2.5-4.9) mg/dl Magnesium (1.8-2.4) mg/dl Total Bilirubin (0.2-1) mg/dl AST (15-37) U/L ALT (12-78) U/L Alkaline Phosphatase (45-117) U/L Total Creatine Kinase (39-308) U/L Total Protein (6.4-8.2) gm/dl Albumin (3.4-5.0) gm/dl Globulin (2.5-4.0) gm/dl Albumin/Globulin Ratio (0.9-2) Procalcitonin (0-0.5) ng/ml Random Vancomycin 23.2 mcg/ml 03/04/20 03/03/20 03/03/20 Range/Units 05:17 21:14 16:28 WBC (4.8-10.8) K/uL RBC (4.7-6.1) M/uL Hgb (14.0-18.0) g/dL Hct (42-52) % MCV (80-100) fL MCH (25-34) pg MCHC (32-36) g/dL RDW Std Deviation (36.4-46.3) fL RDW Coeff of Elvira (11.5-14.5) % Plt Count (130-400) K/uL MPV (7.4-10.4) fL Immature Gran % (Auto) % Neut % (Auto) % Lymph % (Auto) % [place] % (Auto) % Eos % (Auto) % Baso % (Auto) % Neut # (Auto) (1.4-6.5) K/uL Lymph # (Auto) (1.2-3.4) K/uL [place] # (Auto) (0.11-0.59) K/uL Eos # (Auto) (0-0.5) K/uL Baso # (Auto) (0-0.2) K/uL Immature Gran # (Auto) (0.00-0.02) K/uL Absolute Nucleated RBC (0-0) K/uL Nucleated RBC % (auto) % Toxic Granulation Toxic Vacuolation Dohle Bodies Sodium 141 (136-145) mmol/L Potassium 3.5 (3.5-5.1) mmol/L Chloride 112 H (98-107) mmol/L Carbon Dioxide 19 L (21-32) mmol/L Anion Gap 10.0 (3-11) BUN 38 H (7-18) mg/dl Creatinine 2.92 H (0.6-1.4) mg/dl Est Cr Clr Drug Dosing 31.6 ml/min Est GFR ( Amer) 25.5 Est GFR (Non-Af Amer) 22.0 BUN/Creatinine Ratio 13.1 (10-20) Glucose 107 H (70-99) mg/dl POC Glucose 125 H 106 H (70-99) mg/dl Calcium 7.0 L (8.5-10.1) mg/dl Phosphorus 4.5 (2.5-4.9) mg/dl Magnesium 2.4 (1.8-2.4) mg/dl Total Bilirubin 0.7 (0.2-1) mg/dl AST 495 H (15-37) U/L ALT 102 H (12-78) U/L Alkaline Phosphatase 183 H D (45-117) U/L Total Creatine Kinase 7223 H (39-308) U/L Total Protein 6.7 (6.4-8.2) gm/dl Albumin 1.6 L (3.4-5.0) gm/dl Globulin 5.1 H (2.5-4.0) gm/dl Albumin/Globulin Ratio 0.3 L (0.9-2) Procalcitonin (0-0.5) ng/ml Random Vancomycin mcg/ml PG Care Time/CCT Total # of Minutes Spent Total Time Spent with Patient: Total time spent is greater than 50% in coordination of care (as documented) at patient's floor/unit and/or counseling patient: Coding Level of Care Code 86967 Initial Inpt Care Lvl 2 Diagnoses Blister T14.8XXA
[2020-03-04] MEDS: ALBUT/IPRATROP 3MG/0.5MG NEB 3 ML VIAL NEB SCH ×3 (16:05→22:42)
[2020-03-04] MEDS: SODIUM CHLOR 7% 4 ML NEB NEB SCH (19:28)
[2020-03-05] MEDS ORDERED: STAT IV Infusion **Titration per Protocol STA (00:58)
[2020-03-05] MEDS ORDERED: DEXMEDETOMIDINE HCL 200 MCG in SODIUM CHLORIDE 0.9% 48 ML IV SCH (01:00)
[2020-03-05] MEDS: PIPERACILLIN/TAZOBACTAM 3.375 GM in DEXTROSE 5% 100 ML IV SCH ×3 (02:00→18:43)
[2020-03-05] MEDS: ALBUT/IPRATROP 3MG/0.5MG NEB 3 ML VIAL NEB SCH ×6 (03:35→22:44)
[2020-03-05] MEDS ORDERED: METOPROLOL TARTRATE 1 MG/ML VIAL IV STA ×4 (04:36→21:32)
[2020-03-05 05:13] LABS: Mean Corpuscular Hgb Conc 33.2 g/dL (32-36); Nucleated RBC # (auto) 0.05 K/uL (0-0); Nucleated RBC % (auto) 1.6 %
[2020-03-05 05:32] LABS: Hematocrit (blood only) 21.7 % (42-52); Hemoglobin 7.2 g/dL (14.0-18.0); Mean Corpuscular Volume 102.4 fL (80-100); RDW Coefficient of Variation 15.7 % (11.5-14.5); RDW Standard Deviation 59.3 fL (36.4-46.3); Red Blood Count 2.12 M/uL (4.7-6.1); White Blood Count 2.93 K/uL (4.8-10.8)
[2020-03-05 05:41] LABS: Albumin Globulin Ratio 0.3 (0.9-2); Albumin Level 1.5 gm/dl (3.4-5.0); BUN Creatinine Ratio 13.9 (10-20); Bilirubin,Total 0.8 mg/dl (0.2-1); Calcium 7.1 mg/dl (8.5-10.1); Creatinine Clr Calc Pharmacy 31.2 ml/min; Est GFR (African American) 25.1; Est GFR (Non-African American) 21.6; Globulin 5.1 gm/dl (2.5-4.0); Magnesium 2.2 mg/dl (1.8-2.4); Phosphorus 4.4 mg/dl (2.5-4.9); Potassium 2.9 mmol/L (3.5-5.1); Total Protein 6.6 gm/dl (6.4-8.2)
[2020-03-05 05:56] LABS: Dohle Bodies 1+; Immature Granulocytes # (auto) 0.01 K/uL (0.00-0.02); Immature Granulocytes % (auto) 0.3 %; Lymphocytes # (auto) 0.22 K/uL (1.2-3.4); Lymphocytes % (auto) 7.5 %; Monocytes # (auto) 0.09 K/uL (0.11-0.59); Monocytes % (auto) 3.1 %; Neutrophils # (auto) 2.61 K/uL (1.4-6.5); Neutrophils % (auto) 89.1 %; Ovalocytes 1+; Platelet Count 39 K/uL (130-400); Platelet Estimate Decreased (Normal); Tear Drop Cells 1+
[2020-03-05] MEDS ORDERED: POTASSIUM CHLORIDE 20 MEQ/15 ML UDC PO STA ×2 (05:59→21:26)
[2020-03-05] MEDS ORDERED: POTASSIUM CHLORIDE CRTAB 20 MEQ TABCR PO STA (06:25)
--- NOTE | 2020-03-05 06:27 | Critical Care Progress Note ---
Date of Service March 05, 2020 Assessment & Plan (1) Atrial fibrillation with rapid ventricular response: Reason Critically Ill: 64 yo M who PMHx of multiple myeloma, currently undergoing chemotherapy who was admitted with severe sepsis. Patient developed A-fib with rapid ventricular response, and was transferred to the ICU with possible need for vasopressor support. He initially converted to sinus rhythm when placed on an amiodarone drip; however he has had several recurrent episodes of A-fib with RVR. Today his amiodarone drip was increased to 1.0mls/hr in response. Currently, he is in sinus rhythm. Serial chest Xrays showing progression of L upper lobar PNA. Bronchoscopy performed today showed significant mucous plugging in L upper lobe and macerated pleural epithelium, (likely due to thrombocytopenia) but no evidence of obstruction. BAL analysis pending. He continues to maintain good oxygen saturation with minimal supplementation. The source of his sepsis is thought to be from a left lobar pneumonia and gram pos bacteremia. Currently on broad spectrum antibiotics (vanc/zosyn/doxy). He continues to spike fevers despite cooling blanket. Neuro: - metabolic encephalopathy present on admission has resolved - sedation added today for bronchoscopy procedure - holding home doxepin and gabapentin Cardiac: * A fib with RVR - initially converted to sinus rhythm on amiodarone drip; recurrent runs each day promoted increase of amio drip from 0.5 to 1.0mls/hr - metoprolol 50mg, TID for rate control - [id number] score of 1 - holding anticoagulation given ongoing thrombocytopenia - continuous cardiac cath technician - cause of A-fib likely his fever/sepsis - cardiology following, appreciate recs Respiratory: * Left upper lobar pneumonia - see below - currently saturating 96% on 4L via NC - no history of underlying lung disease GI: * Transaminitis - ALT 94, down from 1092 - AST 439, down from 495 - likely secondary to hypoperfusion (sepsis) - continue to trend * Hypoalbuminemia - Albumin low at 1.6 - likely secondary to multiple myeloma - continue Protonix BID - Full Liquid diet RENAL/LYTES: * CHLOÉ - Cr 2.96, up from 2.92; BUN increasing - etiology: albumin low, suspect third spacing of fluid; ATN likely contributory as patient was septic upon ICU admission - non-oliguric, IV fluids discontinued - lactic acidosis improving - trend BMP - nephrology following, appreciate recs * Rhabdomyolysis - CK level continues to trend down - fluids discontinued - patient found down for > 24 hours prior to presentation * Proteinuria - 3+ protein on UA - etiology: myeloma kidney * Hypomagnesemia - resolved - level 2.2 * Hypokalemia - K at 2.9 today - Mag level normal - replacement ordered - calcium corrects to normal with low albumin : - azar in place, strict Is/Os ENDO: - Insulin per ICU protocol - TSH normal 1.6 HEME: * Thrombocytopenia - platelet level 39, down from 64 - likely secondary to myeloma (bone marrow suppression) and sepsis - holding anticoagulation and home aspirin - trend CBC - no active bleeding at this time * Macrocytic Anemia - Hgb 8.5, MCV 103.3 - likely secondary to myeloma (bone marrow suppression) ID: * Pancytopenic - ANC normal, 2.6K/ul - patient is immunocompromised (hx multiple myeloma on chemotherapy) - most recent chemo infusion 5 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 drug vs. dysautonomia vs. CVA - patient does have ongoing PNA and gram + bacteremia, on abx - lack of generalized LAD and classic rash, drug fever/DRESS low on differential - neuro exam normal, CVA low suspicion * Pneumonia - dense left upper lobe infiltrate visualized on imaging - suspect bacterial etiology; legionella antigen pending - bronchoscopy done today, awaiting analysis - procalcitonin initially elevated to 35, down to 1 - Continue Zosyn, doxycycline + added vancomycin today - Fungal covered dropped 03/03. Beta Glucan pending - Flu negative, Covid negative - MRSA swab negative - continue supplemental O2 to keep Ox sat > 92% * Gram + bacteremia - Blood cultures 03/01: 1 of 2 growing coag neg staph not reena. 1 of 2 growing staph, awaiting speciation. MRSA PCR negative - Blood culture repeated 03/04: no growth to date; continue to follow - antibiotics as above - Upper extremity US 03/04 showing no evidence of septic emboli, although not all vessels were visualized - chemo port in place has been de-accessed--> consider surgical removal in the setting of gram + bacteremia - echo on 03/01/20, which noted no valvular abnormalities; consider repeating given final result of blood cultures - ID teleconsult placed; appreciate recs Integ: * Blisters - no mucous membrane involvement - dermatology consult placed, evaluation not consistent with bullous pemphigoid - likely manifestation of 3rd spacing of excess fluid - wound care nurse consulted LINES/IV ACCESS: Peripheral IV and Azar catheter CODE STATUS: Full DVT PROPHYLAXIS: SCDs Thank you for allowing us to participate in the care of this patient. Please refer to my attending physician's documentation for any further recommendations. Admission and Anticipated Discharge Date Admission Date: February 29, 2020 Supervising Physician Co-Signing Physician Notes Dr. Doyle Was the resident-physician during care of patient. I separately evaluated patient for [place] portions of the history and the exam. I was present during the critical portion of medical decision making, and I discussed the case with the resident. I generally agree with the findings and plan except for any additions/exceptions noted. I performed a bronchoscopy today and found thick mucus in the left upper lobe with impaction. This was suctioned out. Significant maceration of the left upper lobe airways were noted. Subsequent chest x-ray state was worsening of consolidative process on the left side. Fungal cultures and AFB cultures were sent in addition to Gram stain culture. Blood cultures from 03/01/2020 growing Staphylococcus species. Follow-up blood cultures thus far have been negative. Apparently the Staphylococcus species is resistant to oxacillin. Continue vancomycin, Zosyn. Urine Legionella antigen was detected. He is currently on doxycycline due to QTC prolongation and amiodarone use. We will discontinue the IV amiodarone at this time and switch him to p.o tomorrow. I will start him on azithromycin 500 mg daily today as I would classify his Legionella pneumonia and severe. Doxycycline is appropriate for mild to moderate disease, but Levaquin or azithromycin will be preferable for severe disease. We will have to keep a close eye on his QTC as it was prolonged today. Caspofungin was discontinued several days ago. If there is evidence of fungal infection, will have to reconsider starting antifungal such as voriconazole given his immunocompromised state. He continues to be severely hypervolemic and have 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. Dosing diuretics on a as needed basis. Nephrology is following. Appreciate their recommendations. Hemoglobin and platelet count is trending downwards. We will continue to monitor and transfuse as needed. No overt signs of bleeding at this time. Bleeding his potassium. Starting on oral bicarb. Recheck a BMP today. Continue amiodarone and metoprolol for his atrial fibrillation. Appreciate cardiology recommendations. Holding DVT prophylaxis at this time given his thrombocytopenia. Continue duo nebs, hypertonic saline and CPT to help promote airway clearance. Patient continues to be a full code. Palliative care has been consulted. I have personally spent 43 minutes of critical care time in the direct management of this patient. This is a life/limb threatening event. This includes time spent evaluating patient, direct bedside care, chart review, pl acing orders, interpretation of diagnostic studies, discussion with consultants, patient, and/or family members regarding treatment decisions, as well as other required patient management activities. This time is exclusive of all separately billable procedures, and teaching time and separate from and in addition to any other critical care service time. Subjective Patient is sedated for his bronchoscopy Review of Systems Review of Systems: Unobtainable due to cognitive status Physical Exam Constitutional: + ill appearing, + obese and cooperative Eyes: PERRL, conjunctivae normal, anicteric sclerae ENMT: external ear and nose normal, oropharynx normal Neck: normal visual inspection and trachea midline Respiratory: normal respiratory effort Auscultation: + rhonchi (present diffusely throughotu) and + wheezes (left upper lung field) Cardiovascular: Rate/Rhythm: regular rate and regular rhythm Heart Sounds: normal S1 and normal S2; no murmur Chest (Breasts): Chest: + vascular access device or port Gastrointestinal (Abdomen): normal bowel sounds, soft, nontender, no hepatos plenomegaly Skin: no rashes, warm and dry Blisters present on L UE, now bandaged Psychiatric: Orientation: alert and oriented x 3 Genitourinary: Azar catheter in place, draining yellow urine without visible blood clots Results & Data Results & Data ([facility]) Vital Signs (Past 12 Hours) Vital Signs Temp Pulse Pulse Resp BP Pulse Ox 03/05/20 06:11 130 H 112/63 03/05/20 05:23 148 H 118/86 03/05/20 03:35 90 20 94 03/05/20 01:00 37.6 C H 98 H 29 H 95 03/05/20 00:57 98 H 36 H 153/87 H 95 03/05/20 00:05 95 H 35 H 162/92 H 93 03/05/20 00:00 37.7 C H 95 H 28 H 96 03/04/20 23:00 37.7 C H 108 H 43 H 94 03/04/20 22:58 37.7 C H 110 H 34 H 166/83 H 94 03/04/20 22:45 99 H 22 95 03/04/20 22:00 37.9 C H 102 H 35 H 93 03/04/20 21:57 37.9 C H 109 H 27 H 168/86 H 94 03/04/20 21:00 38.1 C H 105 H 26 H 93 03/04/20 20:58 38.0 C H 100 H 36 H 153/77 H 94 03/04/20 20:00 38.1 C H 101 H 37 H 94 03/04/20 19:57 38.1 C H 100 H 43 H 162/82 H 94 03/04/20 19:28 103 H 20 96 03/04/20 19:17 99 H 22 96 03/04/20 19:00 38.3 C H 99 H 40 H 95 03/04/20 18:57 38.3 C H 98 H 33 H 153/81 H 96 Resident Activity Tracking Resident Involvement: Resident Care Provided Care Provided: [facility]
[2020-03-05] MEDS ORDERED: POTASSIUM CHLORIDE / WTR 10 MEQ/100 ML PLCT IV SCH (06:30)
[2020-03-05] MEDS: POTASSIUM CHLORIDE / WTR 10 MEQ/100 ML PLCT IV SCH ×3 (06:30→22:21)
[2020-03-05] MEDS: AMIODARONE / D5W 360 MG/200 ML BAG IV SCH (06:35)
[2020-03-05] MEDS: SODIUM CHLOR 7% 4 ML NEB NEB SCH ×2 (07:06→19:49)
[2020-03-05] MEDS: INSULIN ASPART 100 UNITS/ML 3 ML PEN SC SCH ×4 (07:45→20:59)
--- NOTE | 2020-03-05 07:59 | Pre Anesthesia Assessment ---
Date of Service March 05, 2020 Pre Sedation Assessment Vital Signs Temp Pulse Pulse Resp BP Pulse Ox 03/05/20 07:32 96 H 18 98 03/05/20 06:11 130 H 112/63 03/05/20 05:23 148 H 118/86 03/05/20 03:35 90 20 94 03/05/20 01:00 99.7 F H 98 H 29 H 95 03/05/20 00:57 98 H 36 H 153/87 H 95 03/05/20 00:05 95 H 35 H 162/92 H 93 03/05/20 00:00 99.9 F H 95 H 28 H 96 03/04/20 23:00 99.9 F H 108 H 43 H 94 03/04/20 22:58 99.9 F H 110 H 34 H 166/83 H 94 03/04/20 22:45 99 H 22 95 03/04/20 22:00 100.2 F H 102 H 35 H 93 03/04/20 21:57 100.2 F H 109 H 27 H 168/86 H 94 03/04/20 21:00 100.6 F H 105 H 26 H 93 03/04/20 20:58 100.4 F H 100 H 36 H 153/77 H 94 03/04/20 20:00 100.6 F H 101 H 37 H 94 03/04/20 19:57 100.6 F H 100 H 43 H 162/82 H 94 03/04/20 19:28 103 H 20 96 03/04/20 19:17 99 H 22 96 03/04/20 19:00 100.9 F H 99 H 40 H 95 03/04/20 18:57 100.9 F H 98 H 33 H 153/81 H 96 03/04/20 18:23 101.1 F H 96 H 28 H 169/97 H 95 03/04/20 18:00 101.3 F H 100 H 30 H 96 03/04/20 17:00 101.3 F H 95 H 41 H 94 03/04/20 16:57 101.3 F H 110 H 45 H 145/76 H 94 03/04/20 16:10 91 H 20 94 03/04/20 16:00 101.1 F H 105 H 39 H 94 03/04/20 15:57 101.1 F H 116 H 37 H 174/74 H 93 03/04/20 15:00 100.9 F H 106 H 37 H 93 03/04/20 14:57 100.9 F H 115 H 40 H 147/82 H 94 03/04/20 14:00 100.8 F H 108 H 37 H 95 03/04/20 13:00 100.8 F H 103 H 44 H 95 03/04/20 12:56 100.8 F H 103 H 38 H 159/86 H 95 03/04/20 12:00 100.2 F H 100 H 23 97 03/04/20 11:58 100.2 F H 102 H 21 130/85 96 03/04/20 11:00 99.9 F H 99 H 19 95 03/04/20 10:41 99.5 F 96 H 34 H 146/80 H 95 03/04/20 10:00 99.0 F 91 H 29 H 95 03/04/20 09:41 98.8 F 90 24 145/89 H 96 03/04/20 09:00 98.6 F 94 H 24 95 03/04/20 08:00 98.6 F 97 H 34 H 94 Cardiovascular + regular rate and + regular rhythm + murmur Respiratory + labored breathing and + tachypneic + crackles Pre-Sedation Airway Assessment Smoking Status: Never smoker Hx Sleep Apnea: No Hx Difficult Intubation: No Short, Thick Neck: Yes Thyromental Distance: < 3.5 Finger Breadths Oral Cavity: + WNL Mallampati Class: II ASA: [id number] NPO Status Date of Last Intake of Fluids: 03/04/20 Time of Last Intake of Fluids: 07:58 Date of Last Intake of Solid Food: 03/04/20 Time of Last Intake of Solid Foods: 16:00 Procedure Planning Contraindications for Sedation: none Current Medications Reviewed: Yes Notes The planned sedation has been discussed with the patient. Informed Consent was obtained. I have identified the patient, determined the appropriateness of sedation and have assessed the patient immediately prior to the procedure. All medicine(s) and interventions are by my order.
[2020-03-05] MEDS ORDERED: fentaNYL citrate 100 MCG/2 ML VIAL ONE (08:13)
[2020-03-05] MEDS ORDERED: fentaNYL citrate 100 MCG/2 ML VIAL IV STA (08:42)
--- NOTE | 2020-03-05 08:50 | Procedure Note ---
Procedure Note Date of Service March 05, 2020 Note Sedation started at 8:18 AM. Procedure started 8:20 AM. Procedure ended at 8:33 AM. Sedation ended at 8:38 AM. PREOPERATIVE DIAGNOSIS: Left upper lobe collapse with pneumonia POSTOPERATIVE DIAGNOSIS: Left upper lobe mucous plugging PROCEDURE PERFORMED: Flexible fiberoptic bronchoscopy with bronchial washing and therapeutic lavage COMPLICATIONS: None. INDICATION: Evaluate left upper lobe collapse PROCEDURE: Informed consent was obtained for sedation and procedure. The patient was on a Precedex drip and this was continued. He was given 100 mcg of fentanyl throughout the procedure. Supplemental oxygen via nasal cannula as per nursing records was applied to the nasopharynx with adequate saturations achieved. Topical anesthesia with nebulized 1% lidocaine was achieved. The oropharynx and larynx were well visualized and showed diffuse erythema with areas of necrotic debris within the posterior oropharynx. There was normal vocal cord motion without masses or lesions. Additional topical anesthesia with 1% lidocaine was applied to the trachea and sky. The trachea appeared normal with diffuse green mucus lining the airway.The bronchoscope was then advanced through the sky, which was sharp. The scope was then advanced into the right main stem and each segment, subsegement in the right upper lobe, right middle lobe and right lower lobe was visualized. There was copious amounts of thick green and white secretions secretions noted. There were no other findings including evidence of mass, anatomic distortions, or hemorrhage. The bronchoscope was subsequently withdrawn and advanced into the left mainstem. Again, each segment and subsegment was well visualized. No specific masses or other lesions were identified throughout the tracheobronchial tree on the left. There was copious amounts of thick yellowish-green secretions noted. The bronchoscope was then wedged in the left upper lobe and bronchoalveolar lavage samples were obtained. 120 ml of saline was instilled and 40 ml of fluid was aspirated back.The bronchoscope was withdrawn and the area was suctioned clear. The bronchoscope was then withdrawn. The patient tolerated the procedure well without evidence of desaturation or complications. In summary, very thick mucoid secretions were noted in the left upper lobe. After removal of the secretions, and there was diffuse redness and edema noted in the left upper lobe. No significant bleeding noted. Significant scalp trauma was noted after the procedure. Bronchoalveolar lavage samples were sent for cell count, Gram stain and bacterial culture, AFB culture and smear, fungal culture and smear, Aspergillus galactomannan and cytology. Recommendations: Follow cultures and cytology. Continue antibiotics. Coding CPT Codes Pulmonary/Thoracic - Pulmonary and Thoracic: 38459 Dx bronchoscopy/BAL ([id number]) [facility] [place] Procedure Codes (Charges) Pulmonary/Thoracic Procedure 1: Pulmonary and Thoracic: 27710 Dx bronchoscopy/BAL
[2020-03-05] MEDS: FLUTICASONE PROPIONATE NA SPR 16 GM BTL SCH (08:51)
--- NOTE | 2020-03-05 08:56 | Post Anesthesia Assessment ---
Date of Service March 05, 2020 Post Sedation Assessment Vital Signs Temp Pulse Pulse Resp BP BP Pulse Ox 03/05/20 08:38 93 H 18 104/64 94 03/05/20 08:33 89 20 102/88 96 03/05/20 08:31 91 H 25 H 107/96 94 03/05/20 08:28 92 H 21 126/69 97 03/05/20 08:23 96 H 20 108/60 99 03/05/20 08:18 93 H 18 109/67 99 03/05/20 08:15 93 H 22 99/64 L 94 03/05/20 07:32 96 H 18 98 03/05/20 06:11 130 H 112/63 03/05/20 05:23 148 H 118/86 03/05/20 03:35 90 20 94 03/05/20 01:00 99.7 F H 98 H 29 H 95 03/05/20 00:57 98 H 36 H 153/87 H 95 03/05/20 00:05 95 H 35 H 162/92 H 93 03/05/20 00:00 99.9 F H 95 H 28 H 96 03/04/20 23:00 99.9 F H 108 H 43 H 94 03/04/20 22:58 99.9 F H 110 H 34 H 166/83 H 94 03/04/20 22:45 99 H 22 95 03/04/20 22:00 100.2 F H 102 H 35 H 93 03/04/20 21:57 100.2 F H 109 H 27 H 168/86 H 94 03/04/20 21:00 100.6 F H 105 H 26 H 93 03/04/20 20:58 100.4 F H 100 H 36 H 153/77 H 94 03/04/20 20:00 100.6 F H 101 H 37 H 94 03/04/20 19:57 100.6 F H 100 H 43 H 162/82 H 94 03/04/20 19:28 103 H 20 96 03/04/20 19:17 99 H 22 96 03/04/20 19:00 100.9 F H 99 H 40 H 95 03/04/20 18:57 100.9 F H 98 H 33 H 153/81 H 96 03/04/20 18:23 101.1 F H 96 H 28 H 169/97 H 95 03/04/20 18:00 101.3 F H 100 H 30 H 96 03/04/20 17:00 101.3 F H 95 H 41 H 94 03/04/20 16:57 101.3 F H 110 H 45 H 145/76 H 94 03/04/20 16:10 91 H 20 94 03/04/20 16:00 101.1 F H 105 H 39 H 94 03/04/20 15:57 101.1 F H 116 H 37 H 174/74 H 93 03/04/20 15:00 100.9 F H 106 H 37 H 93 03/04/20 14:57 100.9 F H 115 H 40 H 147/82 H 94 03/04/20 14:00 100.8 F H 108 H 37 H 95 03/04/20 13:00 100.8 F H 103 H 44 H 95 03/04/20 12:56 100.8 F H 103 H 38 H 159/86 H 95 03/04/20 12:00 100.2 F H 100 H 23 97 03/04/20 11:58 100.2 F H 102 H 21 130/85 96 03/04/20 11:00 99.9 F H 99 H 19 95 03/04/20 10:41 99.5 F 96 H 34 H 146/80 H 95 03/04/20 10:00 99.0 F 91 H 29 H 95 03/04/20 09:41 98.8 F 90 24 145/89 H 96 03/04/20 09:00 98.6 F 94 H 24 95 Recovery Score Activity: Moves 4 extremities Respiration: Deep Breath/Cough Circulation: +/-20% PreAnes Value Consciousness: Arouseable (by name) Oxygen Saturation: O2 needed for >90% Post Anesthesia Score: 8 Discharge Sedation Level of Care: Fast Track Phase II Post Sedation Plan On clinical assessment, the patient appears to have tolerated the sedation without complications. Patient is recovering as anticipated. Patient will continue to be monitored by nursing and may be discharged when sedation discharge criteria are met per below protocol. Upon Completions of procedure up to 15 minutes continue every 5 minute vital signs and the P.A.R. score; then discharge to a Phase I or Fast Track to Phase II per the following guidelines: * Discharge Patient to appropriate Phase II area if PAR is 8 or greater or return to pre- procedure baseline. The post - procedure orders will be as directed. * If PAR score is less than 8 or not return to pre-procedure baseline then patient will follow Phase I monitoring till PAR is reached for Phase II. The Phase I may be done in procedure room or may call to secure a Phase I area. * If naloxone or flumazenil are used for reversal, hold in Phase I for continued monitoring from when last reversal dose was given for a minimum of 60 minutes or longer pending the nurse and/or physician discretion of patient condition before discharge to Phase II. Please call the Sedation Physician to re-evaluate and complete post-note for discharge to Phase II area. Do NOT discharge from procedure sedation or Phase 1 until post- sedation evaluation note is complete by procedure /sedation MD Sedation Discharge Instructions to be given to the patient at discharge to home.
--- NOTE | 2020-03-05 09:01 | XRay Report ---
XR chest 1V portable HISTORY: 64 years-old Male post bronch follow-up study in a patient with recent bronchoscopy COMPARISON: Chest radiograph 03/04/2020 TECHNIQUE: Portable AP view of the chest FINDINGS: Unchanged positioning of a left pectoral Glttuh-u-Mogc catheter. Cardiac silhouette is enlarged. The right lung is generally clear. There is unchanged blunting of the costophrenic angles. Severe consoli dation of the left upper lung with mildly progressed left midlung opacities. No pneumothorax. Degener ative changes of the shoulders and spine. IMPRESSION: 1. Severe left upper lung consolidation redemonstrated. 2. No pneumothorax. ACT 112: Negative or not required by law. The above report was generated using voice recognition software. It may contain grammatical, syntax o r spelling errors. Electronically signed by: Mike Cullen M.D. 03/05/2020 8:59 AM
[2020-03-05] MEDS: DOXYCYCLINE HYCLATE 100 MG in DEXTROSE 5% 100 ML IV SCH ×2 (09:22→20:58)
--- NOTE | 2020-03-05 10:13 | Cardiology Progress Note ---
Date of Service March 05, 2020 Assessment & Plan Admission and Anticipated Discharge Date Admission Date: February 29, 2020 Subjective He is sleeping post bronchoscopy from sedation. And HPI cannot be obtained at this point. In discussion with the nursing staff his urine output has been good he has not received any diuretics. He is having recurrent atrial arrhythmias and his amiodarone was increased to 1 mg/min. He seems to break with IV Lopressor when he goes into atrial fibrillation. H EENT: 2+ carotid upstrokes no evidence of carotid bruits Lungs: Inspiratory and expiratory rhonchi throughout the lung sadler with expiratory wheezing Heart regular rate and rhythm no appreciable murmurs rubs or gallops Abdomen: Soft nontender distended positive bowel sounds Extremities no clubbing cyanosis with mild edema Assessment & Plan (1) Paroxysmal atrial fibrillation: (2) Elevated troponin secondary to demand ischemia (3) Sepsis: Secondary to pneumonia with gram-positive cocci 4. Normal biventricular size and function by echo this admission 5. Pancytopenia secondary to sepsis 6. Elevated LFTs 7. Elevated CPK secondary to rhabdomyolysis 8. Acute on chronic kidney disease From a cardiac standpoint he should remain on amiodarone IV at 1 mg/min. He cannot be anticoagulated at this time due to his thrombocytopenia. I would prefer to allow him to have a higher blood pressure to perfuse his kidneys but if he continues to have recurrent atrial arrhythmias his metoprolol can be increased to 50 mg p.o. every 6 hours. His echocardiogram was reviewed. His atrial fibrillation is secondary to his fevers and sepsis syndrome. I do wonder if his atrial fibrillation is not exacerbated by underlying obstructive sleep apnea that he is known to have He is currently followed by the truck supervisor in the ICU on appropriate antibiotics. His urine output has actually been good without diuretics. Unfortunately his renal function has not improved. His electrolytes are being replaced. Left to closely follow his hemoglobin which is trending down. This was discussed with the nursing staff Results & Data ([facility]) Vital Signs (Past 12 Hours) Vital Signs Temp Pulse Pulse Resp BP BP Pulse Ox 03/05/20 08:38 93 H 18 104/64 94 03/05/20 08:33 89 20 102/88 96 03/05/20 08:31 91 H 25 H 107/96 94 03/05/20 08:28 92 H 21 126/69 97 03/05/20 08:23 96 H 20 108/60 99 03/05/20 08:18 93 H 18 109/67 99 03/05/20 08:15 93 H 22 99/64 L 94 03/05/20 07:32 96 H 18 98 03/05/20 06:11 130 H 112/63 03/05/20 05:23 148 H 118/86 03/05/20 03:35 90 20 94 03/05/20 01:00 37.6 C H 98 H 29 H 95 03/05/20 00:57 98 H 36 H 153/87 H 95 03/05/20 00:05 95 H 35 H 162/92 H 93 03/05/20 00:00 37.7 C H 95 H 28 H 96 03/04/20 23:00 37.7 C H 108 H 43 H 94 03/04/20 22:58 37.7 C H 110 H 34 H 166/83 H 94 03/04/20 22:45 99 H 22 95
[2020-03-05] MEDS: METOPROLOL TARTRATE 50 MG TAB PO SCH ×3 (10:32→20:46)
[2020-03-05] MEDS: ACYCLOVIR 400 MG TAB PO SCH ×2 (10:33→20:50)
[2020-03-05] MEDS ORDERED: VANCOMYCIN CONSULT ACTIVE PRN (10:36)
[2020-03-05] MEDS: PANTOprazole 40 MG TAB PO SCH ×2 (10:40→20:49)
--- NOTE | 2020-03-05 10:56 | Nephrology Progress Note ---
Date of Service March 05, 2020 Assessment & Plan (1) Acute kidney injury: Mr. Collins was admitted with a fall at home, CHLOÉ with rhabdomyolysis, proteinuria, hypoalbuminemia with h/o MM. Cr was 2.4 on admission with b/l cr 1.5 to 1.7. CPK was >[id number]. Underlying CKD and high grade proteinuria secondary to multiple myeloma. Transferred to ICU for hemodynamically instability with AFib and RVR, now on IV amiodarone, no anticoagulation because of severe thrombocytopenia. CHLOÉ with rhabdomyolysis, hypoalbuminemia and intravascular volume depletion with 3rd spacing with history of nephrotic syndrome secondary to multiple myeloma. Had bronchoscopy this morning. --although Renal function continues to worsen, creatinine up to 3.0 but the rise in cr is seems slow compared to last few days. multiple electrolyte abnormality however his urine output has been decent off of diuretics, net negative. --replace with KCL 40 lizy and repeat K this afternoon --start on sodium bicarbonate 650 milligram twice a day --continue to use diuretics as needed to keep net negative, still total 12 L positive since admission --monitor electrolyte, renal function daily and intake and output Will follow (2) Fall: (3) Pancytopenia: (4) Rhabdomyolysis: Admission and Anticipated Discharge Date Admission Date: February 29, 2020 Herbert Benjamin was seen and evaluated in ICU this morning. He is awake, alert after anesthesia for bronchoscopy this morning. BP Relatively low, Decent UO, net 0.6 L negative off diuretics. Creatinine staying around 3, has multiple el ectrolyte abnormalities including metabolic acidosis and hypokalemia. Review of Systems Review of Systems: All systems reviewed & are unremarkable except as noted in HPI & below Physical Exam Constitutional: + ill appearing, + obese and + edematous; no acute distress Eyes: + eyelid abnormality (edematous) Respiratory: + respiratory distress; no cough Auscultation: + diminished lung sounds, + crackles and + rales Cardiovascular: Rate/Rhythm: + tachycardic and + irregularly irregular Heart Sounds: normal S1 and normal S2 Extremities: + edema Skin: edematous upper extremity with blisters. Neurologic: awake; no focal motor deficits and not confused Psychiatric: A+Ox3, euthymic affect Orientation: alert and oriented x 3 Results & Data ([facility]) Vital Signs (Past 12 Hours) Vital Signs Temp Pulse Pulse Resp BP BP Pulse Ox 10/28/20 10:42 98 H 22 96 03/05/20 08:38 93 H 18 104/64 94 03/05/20 08:33 89 20 102/88 96 03/05/20 08:31 91 H 25 H 107/96 94 03/05/20 08:28 92 H 21 126/69 97 03/05/20 08:23 96 H 20 108/60 99 03/05/20 08:18 93 H 18 109/67 99 03/05/20 08:15 93 H 22 99/64 L 94 03/05/20 07:32 96 H 18 98 03/05/20 06:11 130 H 112/63 03/05/20 05:23 148 H 118/86 03/05/20 03:35 90 20 94 03/05/20 01:00 37.6 C H 98 H 29 H 95 03/05/20 00:57 98 H 36 H 153/87 H 95 03/05/20 00:05 95 H 35 H 162/92 H 93 03/05/20 00:00 37.7 C H 95 H 28 H 96 03/04/20 23:00 37.7 C H 108 H 43 H 94 03/04/20 22:58 37.7 C H 110 H 34 H 166/83 H 94 PG Care Time/CCT Total # of Minutes Spent Total Time Spent with Patient: Total time spent is greater than 50% in coordination of care (as documented) at patient's floor/unit and/or counseling patient: Coding Level of Care Code 71997 Subseq Hosp Care Lvl 3 Diagnoses Acute kidney injury N17.9 Fall W19.XXXA Pancytopenia D61.818 Rhabdomyolysis M62.82 Rhabdomyolysis type: non-traumatic (1) Rhabdomyolysis Rhabdomyolysis type: non-traumatic Qualified Code(s): M62.82 - Rhabdomyolysis
[2020-03-05] MEDS: guaiFENesin 600 MG TABCR PO SCH ×2 (11:33→20:48)
[2020-03-05] MEDS: CYANOCOBALAMIN 500 MCG TABLET (VITAMIN B-12) PO SCH (11:33)
[2020-03-05] MEDS ORDERED: SODIUM BICARBONATE 650 MG TAB PO SCH (12:15)
[2020-03-05] MEDS ORDERED: AZITHROMYCIN 500 MG in DEXTROSE 5% 250 ML IV SCH (12:15)
--- NOTE | 2020-03-05 12:17 | Billing Data ---
Date of Service March 05, 2020 Coding Level of Care Code Critical Care 1st 30-74 mins Time Spent (min) 43
[2020-03-05] MEDS ORDERED: VANCOMYCIN HCL 750 MG in SODIUM CHLORIDE 0.9% 250 ML IV STA (12:41)
--- NOTE | 2020-03-05 12:50 | Pharmacy Report ---
Pharmacy Abx Dose Short Note - Date of Service March 05, 2020 - Assessment & Plan Assessment 64 year old M receiving vancomycin and zosyn for treatment of pulm source/CoNS bacteremia. Vancomycin restarted today given CoNS oxacillin resistant. Random level was ordered given poor kidney function and resulted as very near therapeutic ~48 hours after last dose. Will redose X 1 conservatively today and dose by random levels for now Day # 6 of antimicrobial therapy. Plan Vancomycin * Trough random level of 14.5 mcg/mL is nearly therapeutic * Redose 750 mg IV X 1 (last dose was 1500mg on 03/03@0200) * Goal trough level : 15 to 20 mcg/mL * Trough or random level ordered for: 03/06/20 with AM labs Pharmacy will continue to follow and will adjust dose/frequency as necessary. Thank you.
[2020-03-05 13:17] LABS: Calcium 7.2 mg/dl (8.5-10.1); Est GFR (African American) 24.9; Est GFR (Non-African American) 21.4; Potassium 3.1 mmol/L (3.5-5.1)
--- NOTE | 2020-03-05 15:50 | Palliative Care Consultation ---
Date of Consultation March 05, 2020 Assessment & Plan (1) Palliative care encounter: I met with Mr. Collins at bedside in his room to discuss his care. I explained by role as palliative care physician to assist with symptom management and clarify what is important to him with his current health status in order to ensure that his care matches with his values and goals. He reports that he lives alone and had been independent with care prior to admission. He does not have any family in the area but has a friend named Christiana Veliz, who has been a support to him. He reports that his goal is to be discharged to home. We reviewed his current status and discussed that he is seriously ill and not able to be discharged. If he does improve enough for discharge, he would likely need rehab before being able to go home alone. As he does not have any immediate family, I asked him who he would want to make medical decisions for him if he were unable to do so. He reports that he had been working this out with his siblings prior to admission but had not come to a conclusion. His most likely candidate was his brother who lives in [place] but he did not want him to make decisions because "he wouldn't agree to pull the plug". When questioned further about whether he would even consider vent support if he is worried about withdrawl, he told me that the conversation was over and that he wanted to rest. He is agreeable to further discussion tomorrow. He also indicated that he wou ld likely want his niece, Kerry Mercedes, to be his surrogate but hasn't discussed this with her. Thank you for allowing us to participate in his care. We will f/u tomorrow to discuss further. (2) Severe sepsis: (3) Multiple myeloma: (4) Acute kidney injury: (5) Paroxysmal atrial fibrillation: History of Present Illness Reason for Consultation: Goals of care Requesting Physician: Dr. Alcantara Attending Physician: Geovanny Link DO History of Present Illness 64 yo gentleman with h/o multiple myeloma with pancytopenia. He was admitted with sepsis after a fall at home with rhabdomyolysis and CHLOÉ. He has also required amiodarone drip for management of afib with RVR. He had bronchoscopy earlier today for removal of extensive mucous plugging causing collapse of RUPINDER. He is awake and alert. He does have some dyspnea and is not wearing his O2 when I entered his room. Dyspnea improved with O2. He has some discomfort with prolonged time in bed but denies any other pain or discomfort. We have been consulted to assist with goals of care. Allergies Allergy/AdvReac Type Severity Reaction Status Date / Time epinephrine Allergy Intermediate STATES Verified 10/30/19 15:37 GETS A "WARNER" levofloxacin Allergy Intermediate RASH Verified 02/29/20 22:23 Sulfa (Sulfonamide Allergy Intermediate Rash Verified 02/29/20 22:24 Antibiotics) house dust Allergy Unknown Itchy Verified 02/29/20 22:24 Eye(s) Home Medications Home Medications Medication Instructions Recorded Confirmed Type Calcium 600 + D(3) 1 cap PO QAM 08/07/18 02/29/20 History acyclovir 400 mg PO BID 08/07/18 02/29/20 History aspirin 81 mg PO QAM 08/07/18 02/29/20 History cyanocobalamin (vitamin B-12) 1,000 mcg PO QAM 08/07/18 02/29/20 History [Vitamin B-12] gabapentin 300 mg PO TID 08/07/18 02/29/20 History guaifenesin [Mucinex] 600 mg PO Q12H PRN 08/07/18 02/29/20 History metoprolol tartrate 50 mg PO TID 08/07/18 02/29/20 History omega 1-ont-vlu-fish oil [Fish Oil] 2 cap PO QAM 08/07/18 02/29/20 History pantoprazole 40 mg PO BID 08/07/18 02/29/20 History ascorbic acid (vitamin C) 500 mg 500 mg PO QAM cap 02/23/19 02/29/20 History capsule dexamethasone 4 mg tablet See Rx Instructions .ROUTE 02/23/19 02/29/20 History .COMPLEX tab hydrochlorothiazide 12.5 mg PO QAM 06/08/19 02/29/20 History potassium chloride 20 meq PO QAM 06/08/19 02/29/20 History doxepin 100 mg capsule 100 mg PO HS #90 cap 02/25/20 02/29/20 Rx acetaminophen [Tylenol Extra 500 mg PO Q6H PRN 02/29/20 02/29/20 History Strength] cetirizine 10 mg PO BID PRN 02/29/20 02/29/20 History cod liver oil 1 cap PO DAILY 02/29/20 02/29/20 History docusate sodium [Colace] 100 mg PO DAILY PRN 02/29/20 02/29/20 History flaxseed oil 1 ea MISCELLANEOUS DAILY 02/29/20 02/29/20 History fluticasone propionate [Flonase] 2 spray INTRANASAL DAILY 02/29/20 02/29/20 History Patient History Medical History (Updated 03/05/20 @ 16:02 by Claudia Santa MD) Acute kidney injury CKD (chronic kidney disease) Constipation GERD (gastroesophageal reflux disease) HTN (hypertension) Multiple myeloma Multiple myeloma Neuropathy BL FOOT; 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 CANCER TREATMENT Pancytopenia Paroxysmal atrial fibrillation Prediabetes Seasonal allergies Severe sepsis Surgical History History of bone marrow biopsy History of cataract surgery BL History of colonoscopy History of incision and drainage CYST - RT GROIN History of stem cell transplant History of surgery CYST REMOVED FROM COCCYX 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; 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 Family History Family/Other Family history of diabetes mellitus Social History Smoking Status: Never smoker Second Hand Exposure: No; Do You Dip or Chew Tobacco: No; Hx Alcohol Use: Yes Alcohol type: wine Hx Substance Use: No Preferred Language: French Communication Ability: Effective Sales Development Coordinator Required: No Beliefs That Will Affect Care: None marital status: Single Current Living Situation: Alone Other Information That Helps Us Care for You: No Feels Safe at Home: Yes Safety Concerns: Feels Safe At This Time Assistive Devices: Oxygen - Continuous Review of Systems Review of Systems: All systems reviewed & are unremarkable except as noted in HPI & below Physical Exam Constitutional: + ill appearing Eyes: EOM intact bilaterally Neck: trachea midline, no thyromegaly Respiratory: + labored breathing Cardiovascular: Rate/Rhythm: + tachycardic and + irregularly irregular Gastrointestinal (Abdomen): Percussion/Palpation: abdomen nontender Musculoskeletal: moving all extremities Skin: mottled on extremities Neurologic: no focal motor deficits Psychiatric: Orientation: alert and oriented x 3 Thought Process: clear/coherent thought process Results & Data ([facility]) Vital Signs (Past 12 Hours) Vital Signs Temp Pulse Pulse Resp BP BP Pulse Ox 03/05/20 15:14 95 H 18 92 03/05/20 11:20 99.7 F H 93 H 33 H 134/57 L 97 03/05/20 11:15 92 H 33 H 96 03/05/20 11:00 92 H 31 H 98 03/05/20 10:50 96 H 39 H 140/72 95 03/05/20 10:45 95 H 51 H 96 03/05/20 10:42 98 H 22 96 03/05/20 10:30 98 H 38 H 96 03/05/20 10:20 97 H 35 H 136/70 95 03/05/20 10:15 95 H 30 H 97 03/05/20 10:00 95 H 31 H 97 03/05/20 09:45 97 H 37 H 97 03/05/20 09:41 94 H 32 H 111/62 96 03/05/20 09:30 93 H 38 H 95 03/05/20 09:26 93 H 31 H 129/77 95 03/05/20 09:15 94 H 28 H 95 03/05/20 09:11 91 H 31 H 129/66 95 03/05/20 09:00 93 H 28 H 96 03/05/20 08:56 90 30 H 131/68 95 03/05/20 08:45 93 H 37 H 95 03/05/20 08:39 94 H 27 H 99/56 L 95 03/05/20 08:38 93 H 18 104/64 94 03/05/20 08:37 93 H 26 H 102/59 L 97 03/05/20 08:35 92 H 23 113/63 97 03/05/20 08:33 91 H 26 H 108/61 102/88 96 03/05/20 08:31 90 24 117/60 107/96 93 03/05/20 08:30 90 25 H 95 03/05/20 08:28 93 H 24 87/76 L 126/69 98 03/05/20 08:25 92 H 28 H 126/69 97 03/05/20 08:24 92 H 23 122/69 99 03/05/20 08:23 96 H 20 108/60 99 03/05/20 08:22 96 H 23 108/60 99 03/05/20 08:20 94 H 25 H 109/67 100 03/05/20 08:18 94 H 27 H 105/59 L 109/67 100 03/05/20 08:15 93 H 36 H 104/60 99/64 L 100 03/05/20 08:13 95 H 28 H 127/61 99 03/05/20 08:11 99 H 25 H 108/58 L 100 03/05/20 08:09 93 H 28 H 99/56 L 100 03/05/20 08:07 94 H 29 H 110/60 100 03/05/20 08:05 96 H 29 H 125/63 100 03/05/20 08:03 97 H 30 H 108/54 L 100 03/05/20 08:00 94 H 28 H 100 03/05/20 07:57 97 H 35 H 117/64 99 03/05/20 07:45 99 H 37 H 98 03/05/20 07:32 96 H 96 H 37 H 132/81 99 03/05/20 07:30 96 H 28 H 99 03/05/20 07:15 98.8 F 89 30 H 100 03/05/20 07:00 92 H 99 03/05/20 06:11 130 H 112/63 03/05/20 05:23 148 H 118/86 PG Care Time/CCT Total # of Minutes Spent Total Time Spent with Patient: Total time spent is greater than 50% in coordination of care (as documented) at patient's floor/unit and/or counseling patient: 73 minutes with 60 minutes spent discussing prognosis, advance care planning and goals of care. Coding Level of Care Code 69010 Inpt Consult Level 4 Diagnoses Palliative care encounter Z51.5 Severe sepsis A41.9; R65.20 Multiple myeloma C90.00 Acute kidney injury N17.9 Paroxysmal atrial fibrillation I48.0 Time Spent (min) 73 Comment [id number]
[2020-03-05 16:52] LABS: Fungitell (1-3)-B-D-Glucan 372 pg/mL
--- NOTE | 2020-03-05 16:53 | Hospitalist Progress Note ---
Date of Service March 05, 2020 Assessment & Plan (1) Coagulase negative Staphylococcus bacteremia: now with 3 out of 4 cultures growing coag negative staph, resistant to oxacillin start on Vancomycin today continue Zosyn IV repeat blood cultures drawn, 03/04 may need port removed might need repeat echocardiogram to firmly ruler out vegetations (2) Sepsis: Severe sepsis This patient is a 64yo C male found down at home x24 hours, with acute metabolic encephalopathy, lactic acidosis. Febrile with temperature of 107.8 /tachycardic/tachypneic on arrival. Found with RUPINDER PNA on chest x-ray. Procal elevated at 2.27. Flu negative, Covid negative MRSA swab negative Immunocompromised with port in place Blood cultures: 02/28 with coag negative staph, 03/01 with coag negative staph, repeat cultures 03/04 UA with seemingly contaminated sample, urine culture no growth Procalcitonin significantly elevated With lactic acidosis-lactate elevated at 3.6 on admission and then down to 1.9 Continues to spike significant fevers despite being on antibiotics for over 72 hours He is not neutropenic urine legionella positive today, will start on Zithromax 500mg daily with close attention to QTc continue Zosyn and Vancomycin no fungal coverage needed poor prognosis at this time, appreciate palliative consultation today working on making a POA, he lives alone, has family that does not live locally (3) Pneumonia: Chest x-ray with RUPINDER socked in PNA-the source of his sepsis, likely a strep pneumonia however, urine legionella positive today change doxy to Zithromax today continue Zosyn, add Vancomycin bronchoscopy today, 03/05, lavage with cultures taken (4) Atrial fibrillation with rapid ventricular response: Paroxysmal atrial fibrillation with heart rates at times to the 190s Rates only improved to the 150s with IV Lopressor converted to sinus rhythm, sinus tachycardia on amiodarone, continue drip at 0.5mg/hr change to PO amiodarone today cardiology following -Continue Metoprolol 50mg po TID [id number] score is 1 -Appreciate cardiology consultation-recommends against anticoagulation at this time given higher risk for bleeding given multiple myeloma, anemia and worsening thrombocytopenia echo was largely normal (5) CHLOÉ (acute kidney injury): With creatinine elevated at 2.4 on admission and initially improved, but now worse again to 2.9 rise is Cr is slowing down Urinalysis on admission with granular casts,'s most likely secondary to ATN from severe sepsis He has decreased effective arterial volume secondary to hypoalbuminemia, developing anasarca from copious IV fluid administration for rhabdomyolysis Also with nonanion gap metabolic acidosis He is making urine with Bumex Appreciate nephrology consultation- want even or negative fluid balance next few days he is positive 12 liters for admission Follow CK for rhabdomyolysis, trending down hypokalemia today, treated with 40mEq KCl sodium bicarb added today (6) Rhabdomyolysis: CK >59506 on arrival, secondary to prolonged down time. CK increased after admission to 24,000 but is now decreased to 7,000 after copious IV fluids were given - stop fluids 03/02 -Friedman in place, closely monitor UOP -Follow serial CK -Monitor renal function and electrolytes and replace as needed -Appreciate nephrology consultation (7) Acute respiratory failure with hypoxia: Requiring 4 L nasal cannula to keep pulse ox greater than 88% Secondary to pneumonia and sepsis increased work of breathing today, tachypnea, labored breathing concern with his lobar pneumonia that he could continue to get worse pulmonary/ICU following palliative care consult placed (8) Elevated troponin: Patient denies CP, palpitations. No EKG evidence of ischemia. With acute kidney injury and rhabdomyolysis as well as rapid atrial fibrillation all contributing to myocardial demand ischemia. Did not present with acute coronary syndrome -Troponin peaked today at 1.1 and back down again. Appreciate cardiology consultation Echocardiogram without wall motion abnormalities and with preserved EF -Continue ASA 81mg po daily but would hold if platelets less than 50 -Continue home metoprolol (9) Abnormal liver enzymes: Elevated LFTs most likely secondary to sepsis and rhabdomyolysis CT abdomen/pelvis with mild hepatic steatosis, normal gallbladder and pancreas. -Repeat LFTs in the morning -Also now on amiodarone which is most likely a short-term solution (10) Multiple myeloma in remission: Patient receiving chemotherapy with Darzalex, last dose was 01/30/2020. Follows with Dr. Potts at the [facility] -LDH is quite elevated at 1000 and Uric acid normal, do not suspect tumor lysis syndrome Continue acyclovir for prophylaxis Follow CBC With multiple lytic bone lesions diffusely on imaging (11) Hypokalemia: Replaced and resolved Follow BMP and magnesium (12) Hypophosphatemia: Severely low-replaced and resolved Follow phosphorus level (13) CKD (chronic kidney disease): Baseline creatinine is around 1.4-1.7 With CHLOÉ as above -Avoid nephrotoxins -renally dose meds when appropriate -follow BMP (14) HTN (hypertension): Blood pressures are on the low side when he has rapid atrial fibrillation, but now improved after spontaneous conversion to sinus rhythm -Continue holding home HCTZ -Continue metoprolol with hold parameters (15) Fall: Likely secondary to weakness from pneumonia and sepsis CT of the cervical spine, head CT, chest/abdomen/pelvis CT without fractures or acute findings other than PNA (16) Pancytopenia: Secondary to multiple myeloma and chemotherapy as well as sepsis, possible DIC? Follow CBC in the morning Transfuse as needed (17) Prediabetes: Hemoglobin A1c elevated at 6.4% Follow Accu-Cheks NovoLog sliding scale insulin (18) Neuropathy: -We will now hold home gabapentin, doxepin while critically ill in the ICU Thought to be secondary to chemotherapy (19) Hypoalbuminemia: Albumin severely low at 1.6, likely secondary to cancer, poor nutrition, and sepsis Follow levels Third spacing (20) Paresthesia of left arm: As above, secondary to significant edema from rhabdomyolysis Watch for development of compartment syndrome Diuresing We will elevate arm on pillow (21) GERD (gastroesophageal reflux disease): Continue PPI (22) DVT prophylaxis: Heparin SQ was held by medical management trainer due to worsening thrombocytopenia Disposition-transferred care to ICU on 03/02 Full code Admission and Anticipated Discharge Date Admission Date: February 29, 2020 Subjective patient had bronchoscopy this morning, thick mucous in left upper bronchus patient still with labored breathing, fevers, cough, poor oral intake he is still edematous, making urine with Bumex Cr has plateaued at 2.9 for the past two days, electrolytes stable discussed with Dr. 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 Review of Systems Review of Systems: All systems reviewed & are unremarkable except as noted in Subjective Constitutional: + fever, + chills, + sweats, + fatigue and + weakness Respiratory: + cough and + dyspnea; no wheezing Cardiovascular: + edema; no chest pain Gastrointestinal: no abdominal pain, no nausea, no vomiting, no constipation a nd no diarrhea/loose stools Physical Exam Constitutional: well developed, + ill appearing and + edematous; no acute distress Neck: trachea midline, no thyromegaly + thick neck Respiratory: normal respiratory effort, lungs clear to auscultation + labored breathing, + uses accessory muscles and + tachypneic; no respiratory distress Auscultation: no crackles, no rales and no wheezes Cardiovascular: Rate/Rhythm: regular rhythm and + tachycardic Heart Sounds: normal S1 and normal S2; no murmur Vessels: no JVD Extremities: + edema (diffuse) Gastrointestinal (Abdomen): normal bowel sounds, soft, nontender, no hepatosplenomegaly Musculoskeletal: no cyanosis or clubbing, extremities motor strength 5/5 Skin: no rashes, warm and dry Lymphatic: no cervical or axillary lymphadenopathy Results & Data Results & Data ([facility]) Vital Signs (Past 12 Hours) Vital Signs Temp Pulse Pulse Resp BP BP Pulse Ox 03/05/20 15:14 95 H 18 92 03/05/20 11:20 37.6 C H 93 H 33 H 134/57 L 97 03/05/20 11:15 92 H 33 H 96 03/05/20 11:00 92 H 31 H 98 03/05/20 10:50 96 H 39 H 140/72 95 03/05/20 10:45 95 H 51 H 96 03/05/20 10:42 98 H 22 96 03/05/20 10:30 98 H 38 H 96 03/05/20 10:20 97 H 35 H 136/70 95 03/05/20 10:15 95 H 30 H 97 03/05/20 10:00 95 H 31 H 97 03/05/20 09:45 97 H 37 H 97 03/05/20 09:41 94 H 32 H 111/62 96 03/05/20 09:30 93 H 38 H 95 03/05/20 09:26 93 H 31 H 129/77 95 03/05/20 09:15 94 H 28 H 95 03/05/20 09:11 91 H 31 H 129/66 95 03/05/20 09:00 93 H 28 H 96 03/05/20 08:56 90 30 H 131/68 95 03/05/20 08:45 93 H 37 H 95 03/05/20 08:39 94 H 27 H 99/56 L 95 03/05/20 08:38 93 H 18 104/64 94 03/05/20 08:37 93 H 26 H 102/59 L 97 03/05/20 08:35 92 H 23 113/63 97 03/05/20 08:33 91 H 26 H 108/61 102/88 96 03/05/20 08:31 90 24 117/60 107/96 93 03/05/20 08:30 90 25 H 95 03/05/20 08:28 93 H 24 87/76 L 126/69 98 03/05/20 08:25 92 H 28 H 126/69 97 03/05/20 08:24 92 H 23 122/69 99 03/05/20 08:23 96 H 20 108/60 99 03/05/20 08:22 96 H 23 108/60 99 03/05/20 08:20 94 H 25 H 109/67 100 03/05/20 08:18 94 H 27 H 105/59 L 109/67 100 03/05/20 08:15 93 H 36 H 104/60 99/64 L 100 03/05/20 08:13 95 H 28 H 127/61 99 03/05/20 08:11 99 H 25 H 108/58 L 100 03/05/20 08:09 93 H 28 H 99/56 L 100 03/05/20 08:07 94 H 29 H 110/60 100 03/05/20 08:05 96 H 29 H 125/63 100 03/05/20 08:03 97 H 30 H 108/54 L 100 03/05/20 08:00 94 H 28 H 100 03/05/20 07:57 97 H 35 H 117/64 99 03/05/20 07:45 99 H 37 H 98 03/05/20 07:32 96 H 96 H 37 H 132/81 99 03/05/20 07:30 96 H 28 H 99 03/05/20 07:15 37.1 C 89 30 H 100 03/05/20 07:00 92 H 99 03/05/20 06:11 130 H 112/63 03/05/20 05:23 148 H 118/86 Laboratory Results Laboratory Results - last 24 hr 03/02/20 03/02/20 03/04/20 09:43 09:52 21:42 WBC RBC Hgb POC Hgb Hct POC Hct MCV MCH MCHC RDW Std Deviation RDW Coeff of Elvira Plt Count Immature Gran % (Auto) Neut % (Auto) Lymph % (Auto) [place] % (Auto) Eos % (Auto) Baso % (Auto) Neut # (Auto) Lymph # (Auto) [place] # (Auto) Eos # (Auto) Baso # (Auto) Immature Gran # (Auto) Absolute Nucleated RBC Nucleated RBC % (auto) Dohle Bodies Platelet Estimate Tear Drop Cells Ovalocytes Sample Site POC pH POC pCO2 POC pO2 POC HCO3 POC Total CO2 POC Base Excess ABG pH (Temp Correct) ABG pCO2 (Temp Corrct POC ABG pO2 at Pt Temp POC ABG O2 Sat Khang Test O2 Delivery Device POC Sodium Sodium POC Potassium Potassium Chloride Carbon Dioxide Anion Gap BUN Creatinine Est Cr Clr Drug Dosing Est GFR ( Amer) Est GFR (Non-Af Amer) BUN/Creatinine Ratio Glucose POC Glucose POC Glucose (other) 191 H Calcium Phosphorus Magnesium Total Bilirubin AST ALT Alkaline Phosphatase Total Protein Albumin Globulin Albumin/Globulin Ratio Fluid Neutrophils % Fluid Lymphocytes % Fluid Eosinophils % Fluid Basophils % Fl Monocyt/Macrophag % Fluid Meso/Macro/[place] % Fluid Other Cells % Pleural Fluid Source Pleural Color Pleural Appearance Pleural WBC Pleural RBC Pleural Other Cells BAL A.galactomannan Ag BAL A.galactomann Index Random Vancomycin Legionella Source Legionella Culture Urine Legionella Ag SEE NOTE A Resp Virus Cult Rapid Viral Specimen Source Beta-(1,3)-D-Glucan 372 H B-(1,3)-D-Glucan Intrp POSITIVE A 03/05/20 03/05/20 03/05/20 05:01 05:01 07:29 WBC 2.93 L RBC 2.12 L Hgb 7.2 L POC Hgb Hct 21.7 L POC Hct MCV 102.4 H MCH 34.0 MCHC 33.2 RDW Std Deviation 59.3 H RDW Coeff of Elvira 15.7 H Plt Count 39 L Immature Gran % (Auto) 0.3 Neut % (Auto) 89.1 Lymph % (Auto) 7.5 [place] % (Auto) 3.1 Eos % (Auto) 0.0 Baso % (Auto) 0.0 Neut # (Auto) 2.61 Lymph # (Auto) 0.22 L [place] # (Auto) 0.09 L Eos # (Auto) 0.00 Baso # (Auto) 0.00 Immature Gran # (Auto) 0.01 Absolute Nucleated RBC 0.05 H Nucleated RBC % (auto) 1.6 Dohle Bodies 1+ Platelet Estimate Decreased L Tear Drop Cells 1+ Ovalocytes 1+ Sample Site POC pH POC pCO2 POC pO2 POC HCO3 POC Total CO2 POC Base Excess ABG pH (Temp Correct) ABG pCO2 (Temp Corrct POC ABG pO2 at Pt Temp POC ABG O2 Sat Khang Test O2 Delivery Device POC Sodium Sodium 139 POC Potassium Potassium 2.9 L D Chloride 108 H Carbon Dioxide 19 L Anion Gap 12.0 H BUN 41 H Creatinine 2.96 H Est Cr Clr Drug Dosing 31.2 Est GFR ( Amer) 25.1 Est GFR (Non-Af Amer) 21.6 BUN/Creatinine Ratio 13.9 Glucose 144 H POC Glucose 159 H POC Glucose (other) Calcium 7.1 L Phosphorus 4.4 Magnesium 2.2 Total Bilirubin 0.8 AST 439 H ALT 94 H Alkaline Phosphatase 254 H Total Protein 6.6 Albumin 1.5 L Globulin 5.1 H Albumin/Globulin Ratio 0.3 L Fluid Neutrophils % Fluid Lymphocytes % Fluid Eosinophils % Fluid Basophils % Fl Monocyt/Macrophag % Fluid Meso/Macro/[place] % Fluid Other Cells % Pleural Fluid Source Pleural Color Pleural Appearance Pleural WBC Pleural RBC Pleural Other Cells BAL A.galactomannan Ag BAL A.galactomann Index Random Vancomycin Legionella Source Legionella Culture Urine Legionella Ag Resp Virus Cult Rapid Viral Specimen Source Beta-(1,3)-D-Glucan B-(1,3)-D-Glucan Intrp 03/05/20 03/05/20 03/05/20 10:50 11:17 12:32 WBC RBC Hgb POC Hgb Hct POC Hct MCV MCH MCHC RDW Std Deviation RDW Coeff of Elvira Plt Count Immature Gran % (Auto) Neut % (Auto) Lymph % (Auto) [place] % (Auto) Eos % (Auto) Baso % (Auto) Neut # (Auto) Lymph # (Auto) [place] # (Auto) Eos # (Auto) Baso # (Auto) Immature Gran # (Auto) Absolute Nucleated RBC Nucleated RBC % (auto) Dohle Bodies Platelet Estimate Tear Drop Cells Ovalocytes Sample Site POC pH POC pCO2 POC pO2 POC HCO3 POC Total CO2 POC Base Excess ABG pH (Temp Correct) ABG pCO2 (Temp Corrct POC ABG pO2 at Pt Temp POC ABG O2 Sat Khang Test O2 Delivery Device POC Sodium Sodium 139 POC Potassium Potassium 3.1 L Chloride 109 H Carbon Dioxide 19 L Anion Gap 11.0 BUN 39 H Creatinine 2.98 H Est Cr Clr Drug Dosing 31.0 Est GFR ( Amer) 24.9 Est GFR (Non-Af Amer) 21.4 BUN/Creatinine Ratio 13.0 Glucose 148 H POC Glucose 168 H POC Glucose (other) Calcium 7.2 L Phosphorus Magnesium Total Bilirubin AST ALT Alkaline Phosphatase Total Protein Albumin Globulin Albumin/Globulin Ratio Fluid Neutrophils % Fluid Lymphocytes % Fluid Eosinophils % Fluid Basophils % Fl Monocyt/Macrophag % Fluid Meso/Macro/[place] % Fluid Other Cells % Pleural Fluid Source Pleural Color Pleural Appearance Pleural WBC Pleural RBC Pleural Other Cells BAL A.galactomannan Ag BAL A.galactomann Index Random Vancomycin 14.5 Legionella Source Legionella Culture Urine Legionella Ag Resp Virus Cult Rapid Viral Specimen Source Beta-(1,3)-D-Glucan B-(1,3)-D-Glucan Intrp 03/05/20 03/05/20 03/05/20 16:04 20:04 Unknown WBC RBC Hgb POC Hgb 6.5 L* Hct POC Hct 19 L* MCV MCH MCHC RDW Std Deviation RDW Coeff of Elvira Plt Count Immature Gran % (Auto) Neut % (Auto) Lymph % (Auto) [place] % (Auto) Eos % (Auto) Baso % (Auto) Neut # (Auto) Lymph # (Auto) [place] # (Auto) Eos # (Auto) Baso # (Auto) Immature Gran # (Auto) Absolute Nucleated RBC Nucleated RBC % (auto) Dohle Bodies Platelet Estimate Tear Drop Cells Ovalocytes Sample Site R Radial POC pH 7.36 POC pCO2 30 L POC pO2 128 H POC HCO3 17 L POC Total CO2 18 L POC Base Excess -8.0 ABG pH (Temp Correct) 7.350 ABG pCO2 (Temp Corrct 31 L POC ABG pO2 at Pt Temp 133 POC ABG O2 Sat 99.0 H Khang Test Pass O2 Delivery Device Cannula POC Sodium 140 Sodium POC Potassium 3.1 L Potassium Chloride Carbon Dioxide Anion Gap BUN Creatinine Est Cr Clr Drug Dosing Est GFR ( Amer) Est GFR (Non-Af Amer) BUN/Creatinine Ratio Glucose POC Glucose 123 H POC Glucose (other) Calcium Phosphorus Magnesium Total Bilirubin AST ALT Alkaline Phosphatase Total Protein Albumin Globulin Albumin/Globulin Ratio Fluid Neutrophils % Fluid Lymphocytes % Fluid Eosinophils % Fluid Basophils % Fl Monocyt/Macrophag % Fluid Meso/Macro/[place] % Fluid Other Cells % Pleural Fluid Source Pleural Color Pleural Appearance Pleural WBC Pleural RBC Pleural Other Cells BAL A.galactomannan Ag BAL A.galactomann Index Random Vancomycin Legionella Source Pending Legionella Culture Pending Urine Legionella Ag Resp Virus Cult Rapid Pending Viral Specimen Source Pending Beta-(1,3)-D-Glucan B-(1,3)-D-Glucan Intrp 03/05/20 03/05/20 Unknown Unknown WBC RBC Hgb POC Hgb Hct POC Hct MCV MCH MCHC RDW Std Deviation RDW Coeff of Elvira Plt Count Immature Gran % (Auto) Neut % (Auto) Lymph % (Auto) [place] % (Auto) Eos % (Auto) Baso % (Auto) Neut # (Auto) Lymph # (Auto) [place] # (Auto) Eos # (Auto) Baso # (Auto) Immature Gran # (Auto) Absolute Nucleated RBC Nucleated RBC % (auto) Dohle Bodies Platelet Estimate Tear Drop Cells Ovalocytes Sample Site POC pH POC pCO2 POC pO2 POC HCO3 POC Total CO2 POC Base Excess ABG pH (Temp Correct) ABG pCO2 (Temp Corrct POC ABG pO2 at Pt Temp POC ABG O2 Sat Khang Test O2 Delivery Device POC Sodium Sodium POC Potassium Potassium Chloride Carbon Dioxide Anion Gap BUN Creatinine Est Cr Clr Drug Dosing Est GFR ( Amer) Est GFR (Non-Af Amer) BUN/Creatinine Ratio Glucose POC Glucose POC Glucose (other) Calcium Phosphorus Magnesium Total Bilirubin AST ALT Alkaline Phosphatase Total Protein Albumin Globulin Albumin/Globulin Ratio Fluid Neutrophils % 37 Fluid Lymphocytes % 51 Fluid Eosinophils % 0 Fluid Basophils % Cancelled Fl Monocyt/Macrophag % 3 Fluid Meso/Macro/[place] % Cancelled Fluid Other Cells % 9.0 Pleural Fluid Source Cancelled Pleural Color Cancelled Pleural Appearance Cancelled Pleural WBC Cancelled Pleural RBC Cancelled Pleural Other Cells Cancelled BAL A.galactomannan Ag Pending BAL A.galactomann Index Pending Random Vancomycin Legionella Source Legionella Culture Urine Legionella Ag Resp Virus Cult Rapid Viral Specimen Source Beta-(1,3)-D-Glucan B-(1,3)-D-Glucan Intrp Medications Administered Current Inpatient Medications Acyclovir (Acyclovir 400 Mg Tab) 400 mg PO BID MIRLANDE Stop: 03/31/20 08:59 Last Admin: 03/05/20 10:33 Dose: 400 mg Documented by: Albuterol (Albut/Ipratrop 3mg/0.5mg Neb 3 Ml Vial) 3 ml NEB Q4R MIRLANDE Stop: 04/03/20 14:59 Last Admin: 03/05/20 19:49 Dose: 3 ml Documented by: Aspirin (Aspirin 81 Mg Ectab) 81 mg PO QAM MIRLANDE Stop: 03/31/20 08:59 Last Admin: 03/03/20 07:45 Dose: 81 mg Documented by: Cyanocobalamin (Cyanocobalamin 500 Mcg Tablet (Vitamin B-12)) 1,000 mcg PO QAM [facility] Stop: 03/31/20 08:59 Last Admin: 03/05/20 11:33 Dose: Not Given Documented by: Dextrose (Dextrose 50% 50 Ml Syringe) 25 - 50 ml IV UD PRN; Protocol PRN Reason: Hypoglycemia Protocol Stop: 03/31/20 00:29 Docusate Sodium (Docusate Sodium 100 Mg Cap) 100 mg PO DAILY PRN PRN Reason: Constipation Stop: 03/31/20 00:29 Fluticasone Propionate (Fluticasone Propionate Na Spr 16 Gm Btl) 2 sprays NA DAILY MIRLANDE Stop: 03/31/20 08:59 Last Admin: 03/05/20 08:51 Dose: Not Given Documented by: Gabapentin (Gabapentin 100 Mg Cap) 200 mg PO TID MIRLANDE Stop: 03/31/20 08:59 Last Admin: 03/02/20 08:30 Dose: 200 mg Documented by: Glucagon (Glucagon For Inj 1 Mg Vial) 1 mg SQ UD PRN; Protocol PRN Reason: Hypoglycemia Protocol Stop: 03/31/20 00:29 Glucose (Glucose 10 Tabs/Tube) 4 - 8 tabs PO UD PRN; Protocol PRN Reason: Hypoglycemia Protocol Stop: 03/31/20 00:29 Glucose (Glucose 40% Gel 15 Gm Tube) 15 - 30 gm PO UD PRN; Protocol PRN Reason: Hypoglycemia Protocol Stop: 03/31/20 00:29 Guaifenesin (Guaifenesin 600 Mg Tabcr) 1,200 mg PO Q12 MIRLANDE Stop: 04/01/20 20:59 Last Admin: 03/05/20 11:33 Dose: Not Given Documented by: Heparin Sodium (Porcine) (Heparin 100 Unit/Ml 5ml Flush) 5 ml FLUSH PRN PRN PRN Reason: Flush Stop: 03/31/20 00:20 Heparin Sodium (Porcine) (Heparin Sod 5,000 Unit/0.5 Ml Vial) 7,500 units SQ Q8 MIRLANDE Stop: 03/31/20 05:59 Last Admin: 03/02/20 06:23 Dose: 7,500 units Documented by: Piperacillin Sod/Tazobactam (Sod 3.375 gm/ Dextrose) 115 mls @ 28.75 mls/hr IV Q8H [facility]; Protocol Stop: 03/08/20 17:59 Last Admin: 03/05/20 18:43 Dose: 28.8 mls/hr Documented by: Doxycycline Hyclate 100 mg/ (Dextrose) 110 mls @ 55 mls/hr IV BID [facility] Stop: 03/09/20 20:59 Last Infusion: 03/05/20 11:33 Dose: Infused Documented by: Sodium Bicarbonate 150 meq/ (Dextrose) 1,150 mls @ 50 mls/hr IV .Q23H [facility] Stop: 04/04/20 20:29 Insulin Aspart (Insulin Aspart 100 Units/Ml 3 Ml Pen) 0 units SC ACHS MIRLANDE Stop: 03/31/20 00:59 Last Admin: 03/05/20 17:00 Dose: Not Given Documented by: Levalbuterol HCl (Levalbuterol Hcl 0.63 Mg/3 Ml Neb) 0.63 mg NEB Q6R PRN PRN Reason: wheezing or SOB Stop: 04/01/20 12:59 Metoprolol Tartrate (Metoprolol Tartrate 50 Mg Tab) 50 mg PO TID [facility] Stop: 03/31/20 00:29 Last Admin: 03/05/20 14:52 Dose: 50 mg Documented by: Miscellaneous (Carbohydrates For Hypoglycemia ) 15 - 30 gm PO UD PRN PRN Reason: Hypoglycemia Protocol Stop: 03/31/20 00:29 Miscellaneous Information (Piperacill/Tazobac Consult Active) 1 ea N/A UD PRN PRN Reason: Consult Stop: 03/31/20 09:29 Miscellaneous Information (Vancomycin Consult Active) 1 ea N/A UD PRN PRN Reason: Consult Stop: 04/04/20 10:35 Pantoprazole Sodium (Pantoprazole 40 Mg Tab) 40 mg PO BID [facility] Stop: 03/31/20 08:59 Last Admin: 03/05/20 10:40 Dose: 40 mg Documented by: Sodium Chloride (Sodium Chlor 7% 4 Ml Neb) 4 ml NEB BIDR [facility] Stop: 04/03/20 18:59 Last Admin: 03/05/20 19:49 Dose: 4 ml Documented by: PG Care Time/CCT Total # of Minutes Spent Total Time Spent with Patient: Total time spent is greater than 50% in coordination of care (as documented) at patient's floor/unit and/or counseling patient: Coding Level of Care Code 52147 Subseq Hosp Care Lvl 3 Diagnoses Coagulase negative Staphylococcus bacteremia R78.81; B95.7 Sepsis A41.9; R65.20; G93.40 Sepsis acute organ dysfunction status: with acute organ dysfunction Sepsis type: sepsis due to unspecified organism Severe sepsis acute organ dysfunction type: encephalopathy Severe sepsis shock status: without septic shock Pneumonia J18.9 Pneumonia type: due to unspecified organism Atrial fibrillation with rapid ventricular response I48.91 CHLOÉ (acute kidney injury) N17.9 Rhabdomyolysis M62.82 Rhabdomyolysis type: non-traumatic Acute respiratory failure with hypoxia J96.01 Elevated troponin R77.8 Abnormal liver enzymes R74.8 Multiple myeloma in remission C90.01 Hypokalemia E87.6 Hypophosphatemia E83.39 CKD (chronic kidney disease) N18.9 HTN (hypertension) I10 Fall W19.XXXA Pancytopenia D61.818 Prediabetes R73.03 Neuropathy G62.9 Hypoalbuminemia E88.09 Paresthesia of left arm R20.2 GERD (gastroesophageal reflux disease) K21.9 DVT prophylaxis Z29.9 (1) Rhabdomyolysis Rhabdomyolysis type: non-traumatic Qualified Code(s): M62.82 - Rhabdomyolysis (2) Sepsis Sepsis acute organ dysfunction status: with acute organ dysfunction Sepsis type: sepsis due to unspecified organism Severe sepsis acute organ dysfunction type: encephalopathy Severe sepsis shock status: without septic shock Qualified Code(s): A41.9 - Sepsis, unspecified organism; R65.20 - Severe sepsis without septic shock; G93.40 - Encephalopathy, unspecified (3) Pneumonia Pneumonia type: due to unspecified organism
[2020-03-05 18:06] LABS: Eosinophil Body Fluid Man 0 %; Fluid Mono/Macrophage 3 %; Lymphocyte Body Fluid Man 51 %; Neutrophil Body Fluid Man 37 %
[2020-03-05 20:19] LABS: iSTAT Allen Test Pass; iSTAT Art Bld Gas pCO2 Correct 31 mmHg (35-46); iSTAT Arterial Blood Gas HCO3 17 meg/L (19-24); iSTAT Arterial Blood Gas pCO2 30 mmHg (35-46); iSTAT Arterial Blood Gas pH 7.36 (7.35-7.45); iSTAT Arterial Blood Gas pO2 128 mmHg (80-95); iSTAT Arterial Blood Gas pO2 C 133; iSTAT Carbon Dioxide 18 mmol/L (24-31); iSTAT Hematocrit 19 % (42-52); iSTAT Hemoglobin 6.5 g/dl (14.0-18.0); iSTAT Potassium 3.1 mmol/L (3.3-5.0); iSTAT Site R Radial; iSTAT Sodium 140 mmol/L (135-144)
[2020-03-05] MEDS ORDERED: STAT IV STA (20:27)
[2020-03-05] MEDS ORDERED: SODIUM BICARBONATE 8.4% 150 MEQ in DEXTROSE 5% 1,000 ML IV SCH (20:30)
[2020-03-05] MEDS ORDERED: SODIUM BICARB 8.4% INJ 50 MEQ/50 ML SYR IV STA (20:42)
[2020-03-05 21:20] LABS: BUN Creatinine Ratio 12.8 (10-20); Calcium 7.1 mg/dl (8.5-10.1); Creatinine Clr Calc Pharmacy 30.1 ml/min; Est GFR (Non-African American) 20.7; Potassium 3.1 mmol/L (3.5-5.1)
[2020-03-06] MEDS: POTASSIUM CHLORIDE / WTR 10 MEQ/100 ML PLCT IV SCH ×4 (00:30→08:34)
[2020-03-06] MEDS: ALBUT/IPRATROP 3MG/0.5MG NEB 3 ML VIAL NEB SCH ×7 (02:10→23:00)
[2020-03-06] MEDS ORDERED: METOPROLOL TARTRATE 1 MG/ML VIAL IV ONE ×2 (02:12→07:38)
[2020-03-06] MEDS: PIPERACILLIN/TAZOBACTAM 3.375 GM in DEXTROSE 5% 100 ML IV SCH ×3 (02:17→17:46)
[2020-03-06 03:35] LABS: Base Excess VBG -2.9 mEq/L; HCO3 VBG 21 mmol/L; Oxygen Saturation VBG 71.7 %; PCO2 VBG 35 mmHg (38-50); PO2 VBG 39 mmHg; pH VBG 7.41 (7.36-7.41)
[2020-03-06 03:49] LABS: Albumin Level 1.4 gm/dl (3.4-5.0); BUN Creatinine Ratio 12.1 (10-20); Calcium 6.9 mg/dl (8.5-10.1); Creatinine Clr Calc Pharmacy 31.3 ml/min; Est GFR (African American) 25.2; Est GFR (Non-African American) 21.7; Potassium 2.8 mmol/L (3.5-5.1)
[2020-03-06 04:11] LABS: Phosphorus 2.4 mg/dl (2.5-4.9)
[2020-03-06] MEDS ORDERED: SODIUM CHLORIDE 0.9% 250 ML IV PRN (05:14)
[2020-03-06 05:44] LABS: Hematocrit (blood only) 18.2 % (42-52); Immature Granulocytes # (auto) 0.02 K/uL (0.00-0.02); Immature Granulocytes % (auto) 0.8 %; Lymphocytes # (auto) 0.31 K/uL (1.2-3.4); Mean Corpuscular Hemoglobin 33.7 pg (25-34); Mean Corpuscular Volume 102.2 fL (80-100); Monocytes % (auto) 4.2 %; Neutrophils # (auto) 1.95 K/uL (1.4-6.5); Nucleated RBC # (auto) 0.07 K/uL (0-0); Nucleated RBC % (auto) 3.1 %; Platelet Count 49 K/uL (130-400); Platelet Estimate Decreased (Normal); RDW Coefficient of Variation 15.8 % (11.5-14.5); RDW Standard Deviation 59.2 fL (36.4-46.3); Red Blood Count 1.78 M/uL (4.7-6.1); Tear Drop Cells 1+; White Blood Count 2.38 K/uL (4.8-10.8)
[2020-03-06] MEDS ORDERED: POTASSIUM PHOS 3 MMOL/1 ML INFUSION IV STA (05:55)
--- NOTE | 2020-03-06 05:59 | Electrocardiogram Report ---
Test Reason : Blood Pressure : / mmHG Vent. Rate : 144 BPM Atrial Rate : 153 BPM P-R Int : 000 ms QRS Dur : 084 ms QT Int : 336 ms P-R-T Axes : 000 053 235 degrees QTc Int : 520 ms Atrial fibrillation with rapid ventricular response Nonspecific ST and T wave abnormality Abnormal ECG When compared with ECG of 02-MAR-2020 08:55, Nonspecific T wave abnormality has replaced inverted T waves in Anterolateral leads Confirmed by Tam Munoz ([id number]) on 03/06/2020 5:58:44 AM Referred By: REFERRED SELF Confirmed By:Tam Munoz
--- NOTE | 2020-03-06 06:09 | Critical Care Progress Note ---
Date of Service March 06, 2020 Assessment & Plan (1) Atrial fibrillation with rapid ventricular response: Reason Critically Ill: 64 yo M who PMHx of multiple myeloma, currently undergoing chemotherapy, who was admitted with severe sepsis. Patient developed A-fib with rapid ventricular response, and was transferred to the ICU with possible need for vasopressor support. He initially converted to sinus rhythm when placed on an amiodarone drip; however he has had several recurrent episodes of A-fib with RVR. Amiodarone drip was discontinued yesterday due to a prolonged QT interval with intent to transition to oral amiodarone today. His A-fib broke with two 5mg pushes of IV Lopressor this morning. Currently, he is in sinus rhythm. He continues to maintain goal MAPs without pressors. The source of his sepsis is thought to be from a left lobar pneumonia and gram pos bacteremia. Patient underwent flexible bronchoscopy performed on 03/05 which showed significant mucous plugging in L upper lobe and macerated pleural epithelium, (likely due to thrombocytopenia) but no evidence of obstruction. Fluid analysis pending. His urine legionella antigen returned positive on 03/05 and macrolide coverage was added to his antibiotic regimen. He continues to maintain good oxygen saturation with minimal supplementation. Currently on broad spectrum antibiotics (vanc/zosyn/azithro). He continues to spike fevers despite cooling blanket and his kidney function remains poor but stable. He developed a non-gapped metabolic acidosis for which a sodium bicarb drip was started overnight. Bicarb has normalized today; drip discontinued. His hemoglobin dropped 6.0 this morning, below the transfusion threshold. Due to his chemo regimen, type and cross is a send out - awaiting for this to return before 2 units of irritated pRBCs can be given (units are on hold in blood bank). Patient met with palliative care yesterday - he remains unwilling to definitively state his wishes regarding goals of care. Oncology consult placed today. Neuro: - metabolic encephalopathy - likely secondary to sepsis - holding home doxepin and gabapentin Cardiac: * A fib with RVR -ongoing - initially converted to sinus rhythm on amiodarone drip; drip was discontinued due to his worsening QTc interval prolongation, plan to transition to oral amio today - metoprolol 50mg, TID increased to QID for tighter rate control - [id number] score of 1 - holding anticoagulation given ongoing thrombocytopenia and anemia - continuous tar heel - cause of A-fib likely his fever/sepsis - cardiology following, appreciate recs Respiratory: * Left upper lobar pneumonia - see below - currently saturating 98% on 3L via NC - no history of underlying lung disease GI: * Transaminitis - ALT 84, down from 94 - AST 336, down from 439 - likely secondary to hypoperfusion (sepsis) - continue to trend * Hypoalbuminemia - Albumin low at 1.6 - likely secondary to multiple myeloma - continue Protonix BID - NPO RENAL/LYTES: * CHLOÉ - Cr remains at 2.9, BUN at 36, ratio 12 - etiology: albumin low, suspect third spacing of fluid; ATN likely contributory as patient was septic upon ICU admission - non-oliguric, IV fluids discontinued - lactic acidosis resolved with bicarb drip - trend BMP - nephrology following, appreciate recs * Rhabdomyolysis - CK level continues to trend down - fluids discontinued - patient found down for > 24 hours prior to presentation * Proteinuria - 3+ protein on UA - etiology: myeloma kidney * Hypomagnesemia - resolved - level 2.2 * Hypokalemia - K at 2.8 today - Mag level normal - replacement ordered - calcium corrects to normal with low albumin : - azar in place, strict Is/Os ENDO: - Insulin per ICU protocol - TSH normal 1.6 HEME: * Multiple Myeloma - patient used to follow with Dr. Lopez - had two stem cell transplants at [facility] - most recent chemo infusion 5 weeks [employer] - oncology consulted, appreciate recs * Thrombocytopenia - platelet level 49, up from 39k - likely secondary to myeloma (bone marrow suppression) and sepsis - holding anticoagulation and home aspirin - trend CBC - no active bleeding at this time * Macrocytic Anemia - Hgb 6.0, MCV 103.3 - likely secondary to myeloma (bone marrow suppression) - typed and screened; 2 units irritated pRBCs ordered. Due to chemo use, type and screen is a send out, unit cannot be transfused until it returns ID: * Pancytopenic - ANC normal, 2.6K/ul - patient is immunocompromised (hx multiple myeloma on chemotherapy) - continue acyclovir prophylaxis * Fever - ongoing despite application of cooling blanket - source: infection vs. drug vs. dysautonomia vs. CVA - patient does have ongoing PNA and gram + bacteremia, on abx - lack of generalized LAD and classic rash, drug fever/DRESS low on differential - neuro exam normal, CVA low suspicion * Pneumonia - dense left upper lobe infiltrate visualized on imaging - legionella antigen returned positive on 03/05; azithromycin coverage added - bronchoscopy 03/05, with extensive mucous plugging, no evidence of obstruction. - 1 of 2 bronch wash samples growing richard. Fungal culture pending. Patient was initially started on anti-fungal treatment, covered dropped 03/03. Beta Glucan retuned at 372. - procalcitonin initially elevated to 35, down to 1 - Continue Zosyn, vanc and azithromycin; doxy d/c today - Flu negative, Covid negative - MRSA swab negative - continue supplemental O2 to keep Ox sat > 92% * Gram + bacteremia - Blood cultures 02/28: 1 of 2 growing coag neg staph not reena. drawn from R arm - Blood cultures 03/01: 1 of 2 growing coag neg staph not reena. 1 of 2 growing staph, awaiting speciation. MRSA PCR negative. both drawn from port - Blood cultures 03/04: no growth to date; continue to follow. 1 drawn from port (10 cc discarded), 1 drawn from R arm - continue antibiotics as above - Upper extremity US 03/04 showing no evidence of septic emboli, although not all vessels were visualized - chemo port in place has been de-accessed--> consider surgical removal in the setting of gram + bacteremia - echo on 03/01/20, which noted no valvular abnormalities; consider repeating given final result of blood cultures - ID teleconsult placed; appreciate recs Integ: * Blisters - no mucous membrane involvement - dermatology consult placed, evaluation not consistent with bullous pemphigoid - likely manifestation of 3rd spacing of excess fluid - wound care nurse consulted LINES/IV ACCESS: Peripheral IV and Azar catheter, chemo port CODE STATUS: Full DVT PROPHYLAXIS: SCDs; chemoprophylaxis contraindicated due to ongoing anemia and thrombocytopenia Thank you for allowing us to participate in the care of this patient. Please refer to my attending physician's documentation for any further recommendations. Admission and Anticipated Discharge Date Admission Date: February 29, 2020 Supervising Physician Co-Signing Physician Notes Dr. Doyle was resident physician during care of patient. I separately evaluated patient for sutherland portions of the history and the exam. I was present during the critical portion of medical decision making, and I discussed the case with the resident. I generally agree with the findings and plan. Patient's blood cultures are negative to date, there is no certainty with which where the previous positive blood cultures came from. In the light that the MRSA PCR is negative I feel it appropriate to de-escalate to MSSA antibiotics given the renal insufficiency. We are awaiting blood product from the blood bank for transfusion. Patient was discussed in multidisciplinary rounds Subjective Patient is asleep on exam, but arousable. Too drowsy to participate in meaningful conversation Review of Systems Review of Systems: Unobtainable due to cognitive status Physical Exam Constitutional: + ill appearing, + obese and cooperative Weight up 4kg since yesterday Shivering on exam Eyes: PERRL, conjunctivae normal, anicteric sclerae ENMT: external ear and nose normal, oropharynx normal Neck: normal visual inspection and trachea midline Respiratory: normal respiratory effort Auscultation: + rhonchi (present diffusely throughotu) and + wheezes (left upper lung field) Cardiovascular: Rate/Rhythm: regular rate and regular rhythm Heart Sounds: normal S1 and normal S2; no murmur Chest (Breasts): Chest: + vascular access device or port Gastrointestinal (Abdomen): normal bowel sounds, soft, nontender, no hepatosplenomegaly Skin: no rashes, warm and dry Blisters on left UE, wrapped by wound care Psychiatric: Orientation: alert and oriented x 3 Genitourinary: Azar catheter in place, draining yellow urine without visible blood clots Results & Data Results & Data ([facility]) Vital Signs (Past 12 Hours) Vital Signs Temp Pulse Pulse Resp BP Pulse Ox 03/06/20 03:18 105 H 26 H 94 03/06/20 02:15 145 H 149/81 H 03/06/20 02:00 146 H 39 H 96 03/06/20 01:29 106 H 33 H 149/81 H 95 03/06/20 01:00 101 H 30 H 96 03/06/20 00:33 106 H 151/72 H 03/06/20 00:29 105 H 34 H 145/88 H 95 03/06/20 00:00 38.2 C H 106 H 34 H 94 03/05/20 23:30 105 H 30 H 151/72 H 95 03/05/20 23:00 98 H 28 H 97 03/05/20 22:45 94 H 28 H 96 03/05/20 22:21 104 H 151/70 H 03/05/20 22:20 97 H 28 H 151/70 H 98 03/05/20 22:00 98 H 33 H 97 03/05/20 21:50 108 H 31 H 147/82 H 97 03/05/20 21:20 156 H 40 H 142/107 H 96 03/05/20 21:00 101 H 37 H 97 03/05/20 20:50 106 H 33 H 150/73 H 97 03/05/20 20:20 101 H 27 H 139/70 98 03/05/20 20:04 86 28 H 99 03/05/20 20:00 37.5 C 98 H 35 H 100 03/05/20 19:50 94 H 35 H 160/75 H 98 03/05/20 19:20 95 H 34 H 151/84 H 97 03/05/20 19:00 92 H 31 H 98 03/05/20 18:20 85 28 H 151/84 H 96 Critical Care Time Critical Care Time: Yes Total Critical Care Time: 45 I have personally spent 45 minutes of critical care time in the direct management of this patient. This is a life/limb threatening event. This includes time spent evaluating patient, direct bedside care, chart review, placing orders, interpretation of diagnostic studies, discussion with consultants, patient, and/or family members regarding treatment decisions, as well as other required patient management activities. This time is exclusive of all separately billable procedures, and teaching time and separate from and in addition to any other critical care service time. Resident Activity Tracking Resident Involvement: Resident Care Provided Care Provided: Adult [facility]
[2020-03-06] MEDS ORDERED: POTASSIUM PHOSPHATE 21 MMOL in SODIUM CHLORIDE 0.9% 500 ML IV ONE (06:15)
--- NOTE | 2020-03-06 06:32 | Electrocardiogram Report ---
Test Reason : Blood Pressure : / mmHG Vent. Rate : 104 BPM Atrial Rate : 104 BPM P-R Int : 140 ms QRS Dur : 096 ms QT Int : 478 ms P-R-T Axes : 019 054 086 degrees QTc Int : 628 ms Poor data quality, interpretation may be adversely affected Sinus tachycardia Low voltage QRS Nonspecific T wave abnormality Abnormal ECG When compared with ECG of 05-MAR-2020 05:19, Sinus rhythm has replaced Atrial fibrillation ST no longer depressed in Anterior leads Confirmed by Tam Munoz ([id number]) on 03/06/2020 6:32:17 AM Referred By: REFERRED SELF Confirmed By:Tam Munoz
[2020-03-06] MEDS: SODIUM CHLOR 7% 4 ML NEB NEB SCH ×3 (07:06→19:38)
[2020-03-06 07:21] LABS: Bilirubin Direct 0.5 mg/dl (0-0.2); Bilirubin,Total 0.9 mg/dl (0.2-1); Total Protein 6.3 gm/dl (6.4-8.2)
--- NOTE | 2020-03-06 07:33 | XRay Report ---
XR chest 1V portable CLINICAL HISTORY: Pneumonia COMPARISON STUDY: 02/26/2020 FINDINGS: The cardiac and mediastinal contours remain stable. There is a left-sided Mediport catheter present. There is dense consolidation of left upper lobe. There is indistinctness of the left heart border suggesting additional airspace opacities. A trace subpulmonic left pleural effusion cannot be excluded.[ IMPRESSION: Persistent left lung airspace opacities. No significant change when compared the precedin g study ACT 112: Negative or not required by law. Electronically signed by: Joselo Koch M.D. 03/06/2020 7:32 AM
[2020-03-06] MEDS: METOPROLOL TARTRATE 1 MG/ML VIAL IV PRN (07:56)
[2020-03-06] MEDS: ACYCLOVIR 400 MG TAB PO SCH ×2 (09:04→21:36)
[2020-03-06] MEDS: PANTOprazole 40 MG TAB PO SCH ×2 (09:04→21:36)
[2020-03-06] MEDS: guaiFENesin 600 MG TABCR PO SCH ×2 (09:04→21:36)
[2020-03-06] MEDS: INSULIN ASPART 100 UNITS/ML 3 ML PEN SC SCH ×4 (09:04→21:36)
[2020-03-06] MEDS: DOXYCYCLINE HYCLATE 100 MG in DEXTROSE 5% 100 ML IV SCH (09:04)
[2020-03-06] MEDS: FLUTICASONE PROPIONATE NA SPR 16 GM BTL SCH (09:05)
[2020-03-06] MEDS: METOPROLOL TARTRATE 50 MG TAB PO SCH ×3 (09:05→21:36)
[2020-03-06] MEDS: CYANOCOBALAMIN 500 MCG TABLET (VITAMIN B-12) PO SCH (09:05)
--- NOTE | 2020-03-06 10:54 | Nephrology Progress Note ---
Date of Service March 06, 2020 Assessment & Plan (1) Acute kidney injury: Mr. Collins was admitted with a fall at home, CHLOÉ with rhabdomyolysis, proteinuria, hypoalbuminemia with h/o MM. Cr was 2.4 on admission with b/l cr 1.5 to 1.7. CPK was >34902. Underlying CKD and high grade proteinuria secondary to multiple myeloma. Transferred to ICU for hemodynamically instability with AFib and RVR, now on IV amiodarone, no anticoagulation because of severe thrombocytopenia. CHLOÉ with rhabdomyolysis, hypoalbuminemia and intravascular volume depletion with 3rd spacing with history of nephrotic syndrome secondary to multiple myeloma. Renal function stable --decent UO without diuretics, use as needed --monitor electrolyte, renal function daily and intake and output --hopefully renal function will start to improve as overall clinically doing better Will follow (2) Fall: (3) Pancytopenia: (4) Rhabdomyolysis: Admission and Anticipated Discharge Date Admission Date: February 29, 2020 Herbert Benjamin was seen and evaluated in ICU this morning. Awake, alert, BP fair, Decent UO, net 1L positive. Creatinine staying around 3, has multiple electrolyte abnormalities including metabolic acidosis and hypokalemia. Review of Systems Review of Systems: All systems reviewed & are unremarkable except as noted in HPI & below Physical Exam Constitutional: + ill appearing, + obese and + edematous; no acute distress Respiratory: + respiratory distress; no cough Auscultation: + diminished lung sounds, + crackles and + rales Cardiovascular: Rate/Rhythm: + tachycardic Heart Sounds: normal S1 and normal S2 Extremities: + edema Musculoskeletal: Head/Neck/Chest: normocephalic and head atraumatic Extremities: + upper extremity abnormal to inspection (edematous with blisters) Bilateral Skin: no rashes, warm and dry Neurologic: awake; no focal motor deficits and not confused Psychiatric: A+Ox3, euthymic affect Orientation: alert and oriented x 3 Results & Data ([facility]) Vital Signs (Past 12 Hours) Vital Signs Temp Pulse Pulse Resp BP Pulse Ox 03/06/20 07:56 147 H 140/75 03/06/20 07:40 160 H 140/75 03/06/20 07:07 113 H 22 95 03/06/20 03:18 105 H 26 H 94 03/06/20 02:15 145 H 149/81 H 03/06/20 02:00 146 H 39 H 96 03/06/20 01:29 106 H 33 H 149/81 H 95 03/06/20 01:00 101 H 30 H 96 03/06/20 00:33 106 H 151/72 H 03/06/20 00:29 105 H 34 H 145/88 H 95 03/06/20 00:00 38.2 C H 106 H 34 H 94 03/05/20 23:30 105 H 30 H 151/72 H 95 03/05/20 23:00 98 H 28 H 97 PG Care Time/CCT Total # of Minutes Spent Total Time Spent with Patient: Total time spent is greater than 50% in coordination of care (as documented) at patient's floor/unit and/or counseling patient: Coding Level of Care Code 65253 Subseq Hosp Care Lvl 3 Diagnoses Acute kidney injury N17.9 Fall W19.XXXA Pancytopenia D61.818 Rhabdomyolysis M62.82 Rhabdomyolysis type: non-traumatic (1) Rhabdomyolysis Rhabdomyolysis type: non-traumatic Qualified Code(s): M62.82 - Rhabdomyolysis
--- NOTE | 2020-03-06 11:12 | Palliative Care Progress Note ---
Date of Service March 06, 2020 Assessment & Plan (1) Palliative care encounter: I followed up and met with this gentleman at his bedside in room 109. The patient was able to recall his conversation yesterday with Dr. Santa regarding the possibility of assigning a designated decision maker in the event he was unable to make decisions independently. He mentioned his two sisters, Celina and Deb. He mentioned that he would not want Deb involved because she 'has a lot on her plate. He did mention that he did complete a form indicating his decision maker during a previous hospital stay. In review of his extended chart, I found a completed document indicating that he would want two decision makers: 1. Zarina Killian who is his sister that lives in [facility] [phone] and in collaboration with 2 .Christiana Samuel [phone] [place] [phone]. The document went further to say that he did not want aggressive care, nor did he wish to have artificial nutrition if indicated in his care. This document was signed on November 10, 2017. For now, when we discussed his code status, he indicated he would not want to be kept alive on machines, but would be willing to have short-term intubation and CPR if necessary. For now, the patient will remain a full code per his wishes. For now, palliative care will sign off on this patient. Please feel free to re- involve us should he decline or if additional support is requested. Thank you for involving the palliative care team. (2) Severe sepsis: (3) Multiple myeloma: (4) Acute kidney injury: (5) Paroxysmal atrial fibrillation: Admission and Anticipated Discharge Date Admission Date: February 29, 2020 Herbert Benjamin was seen and evaluated in ICU this morning. Patient appears in no apparent distress. Please see A/P for further details. Review of Systems Review of Systems: All systems reviewed & are unremarkable except as noted in HPI & below Physical Exam Constitutional: + ill appearing Neck: trachea midline, no thyromegaly Respiratory: + uses accessory muscles Cardiovascular: Rate/Rhythm: + tachycardic and + irregularly irregular Gastrointestinal (Abdomen): normal bowel sounds, soft, nontender, no hepatosplenomegaly Neurologic: no focal motor deficits Psychiatric: Orientation: alert and oriented x 3 Thought Process: clear/coherent thought process Insight: good insight Judgement: good judgement Results & Data ([facility]) Vital Signs (Past 12 Hours) Vital Signs Temp Pulse Pulse Resp BP Pulse Ox 03/06/20 07:56 147 H 140/75 03/06/20 07:40 160 H 140/75 03/06/20 07:07 113 H 22 95 03/06/20 03:18 105 H 26 H 94 03/06/20 02:15 145 H 149/81 H 03/06/20 02:00 146 H 39 H 96 03/06/20 01:29 106 H 33 H 149/81 H 95 03/06/20 01:00 101 H 30 H 96 03/06/20 00:33 106 H 151/72 H 03/06/20 00:29 105 H 34 H 145/88 H 95 03/06/20 00:00 38.2 C H 106 H 34 H 94 03/05/20 23:30 105 H 30 H 151/72 H 95 PG Care Time/CCT Total # of Minutes Spent Total Time Spent with Patient: Total time spent is greater than 50% in coordination of care (as documented) at patient's floor/unit and/or counseling patient: 35 Coding Level of Care Code 22063 Subseq Hosp Care Lvl 3 Diagnoses Palliative care encounter Z51.5 Severe sepsis A41.9; R65.20 Multiple myeloma C90.00 Acute kidney injury N17.9 Paroxysmal atrial fibrillation I48.0 Time Spent (min) 35 Time Spent Midlevel Total time spent 35 minutes with > 50% of that time spent assessing the patient, discussing goals of care with the patient and collaborating with IDT
[2020-03-06 11:41] LABS: BUN Creatinine Ratio 11.5 (10-20); Creatinine Clr Calc Pharmacy 33.3 ml/min; Est GFR (African American) 26.6; Est GFR (Non-African American) 22.9; Potassium 2.9 mmol/L (3.5-5.1)
[2020-03-06] MEDS: POTASSIUM CHLORIDE / WTR 20 MEQ/100 ML PLCT IV SCH ×3 (12:33→16:34)
[2020-03-06] MEDS: AZITHROMYCIN 500 MG in DEXTROSE 5% 250 ML IV SCH (12:46)
--- NOTE | 2020-03-06 18:00 | Consultation Report ---
DATE OF CONSULTATION: 03/06/2020 HISTORY OF PRESENT ILLNESS: He is a 64-year-old man admitted with sepsis. The patient was found on the floor. He was admitted to the ICU. Blood cultures grew out Staph organism. Urine grew out legionella. The patient is on vancomycin, Unasyn and azithromycin. He also was found to have a very high CK. The patient was in 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 with a creatinine between 2 and 3. During his time in the hospital, the patient's creatinine has stabilized at around 3. He is normocalcemic. Absolute neutrophil counts are approximately 1.9. The patient is awake, alert, mildly confused. His hematological history is as follows: In 12/2009, the patient presented with anemia, leukopenia and 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. Serum protein electrophoresis showed monoclonal spike of 3.4 grams. Immunoelectrophoresis showed the spike to be IgG kappa. A kappa lambda chain ratio was 123. Bone marrow biopsy showed kappa restricted plasma cells making up 80-90% of the cellularity of the bone marrow. Cytogenetics showed hyperdiploid state on chromosomes 3, 5, and 9. He was sent to [facility] and placed on a protocol consisting of Revlimid, Velcade, dexamethasone. 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 He was then treated with Revlimid and dexamethasone alone obtaining a good response. His monoclonal protein dropped to 0.4 grams and his light chain ratio to 8. The patient's hemoglobin and renal function improved as well. In 10/2010, he underwent autologous stem cell transplantation with high-dose melphalan. Repeat bone marrow biopsy 11/30/2010 showed only 0.1% plasma cells with normal cytogenetics. He underwent a second autologous transplant on April 22. Post-transplant, he was placed on maintenance Revlimid and weekly dexamethasone. He began this therapy in 05/2011 and continued it to 05/2013. His protein electrophoresis again became positive with monoclonal protein in the mid 2014. This gradually sabino over the next year. Revlimid 25 mg a day for 21 out of 28 days was restarted along with weekly dexamethasone. His monoclonal protein once again declined. However, the dose of Revlimid had to be reduced because of marrow toxicity. Even at a very low dose, he still had difficulty with his blood counts. Therefore, Revlimid was stopped. He also had progression of his monoclonal protein. Second line therapy with Darzalex, Pomalyst and dexamethasone began 06/15/2018. However, once again he could not tolerate medication because of low blood counts. Pomalyst was thus stopped and the patient is currently on Darzalex (daratumumab) alone. PHYSICAL EXAMINATION: The patient is awake but drowsy and mildly confused. No rashes, no adenopathy, no jaundice. No abdominal tenderness. IMPRESSION: 1. IgG kappa myeloma, partial remission. 2. The patient has severely compromised marrow because of this disease and the high-dose chemotherapy he received associated with his transplants. 3. Sepsis as above described with secondary to 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. 4. 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 Suggest the patient should be transfused to a hematocrit of 25-30. He should be vigorously hydrated. The patient on appropriate intravenous antibiotic therapy. Should absolute neutrophil count drop below 1000, I would recommend Neupogen 1.6 mL subQ daily. The patient should be on anti-DVT prophylaxis with either antiembolism stockings or low dose Lovenox. Prognosis guarded. ID and Renal input appreciated I will follow along with you.
--- NOTE | 2020-03-06 21:10 | Hospitalist Progress Note ---
Date of Service March 06, 2020 Assessment & Plan (1) Coagulase negative Staphylococcus bacteremia: 3 out of 4 cultures growing coag negative staph, resistant to oxacillin start on Vancomycin 03/05 continue Zosyn IV repeat blood cultures drawn, 03/04, no growth thus far may need port removed, it is de-accessed at this time no septic clots on venous US might need repeat echocardiogram to firmly ruler out vegetations, initial echo showed no vegetations (2) Sepsis: Severe sepsis This patient is a 64yo C male found down at home x24 hours, with acute metabolic encephalopathy, lactic acidosis. Febrile with temperature of 107.8 /tachycardic/tachypneic on arrival. Found with RUPINDER PNA on chest x-ray. Procal elevated at 2.27. Flu negative, Covid negative MRSA swab negative Immunocompromised with port in place Blood cultures: 02/28 with coag negative staph, 03/01 with coag negative staph, repeat cultures 03/04 UA with seemingly contaminated sample, urine culture no growth Procalcitonin significantly elevated With lactic acidosis-lactate elevated at 3.6 on admission and then down to 1.9 Continues to spike significant fevers despite being on antibiotics He is not neutropenic urine legionella positive, continue Zithromax 500mg daily with close attention to QTc continue Zosyn and Vancomycin no fungal coverage needed poor prognosis at this time, appreciate palliative consultation (3) Anemia: macrocytic, down to 6.0 today this is due to marrow failure, suppression from both myeloma and chemotherapy appreciate hematology consultation will transfuse 2 units but type/cross is send out due to being on chemotherapy, needs irradiated product repeat Hb in the morning (4) Pneumonia: Chest x-ray with RUPINDER socked in PNA-the source of his sepsis, likely a strep pneumonia however, urine legionella positive change doxy to Zithromax 500mg daily continue Zosyn, add Vancomycin bronchoscopy 03/05, lavage with cultures taken breathing a little easier, saturating 99% on 3L (5) Atrial fibrillation with rapid ventricular response: Paroxysmal atrial fibrillation with heart rates at times to the 190s Rates only improved to the 150s with IV Lopressor converted to sinus rhythm, sinus tachycardia on amiodarone, continue drip at 0.5mg/hr change to PO amiodarone 03/05 had some brief RVR episodes today that resolved with Lopressor 5mg IV push increase metoprolol to 50mg QID cardiology following [id number] score is 1 -Appreciate cardiology consultation-recommends against anticoagulation at this time given higher risk for bleeding given multiple myeloma, anemia and worsening thrombocytopenia echo was largely normal (6) CHLOÉ (acute kidney injury): With creatinine elevated at 2.4 on admission and initially improved, but then peaked at 3.07 rise is Cr is slowing down to 2.8 today Urinalysis on admission with granular casts,'s most likely secondary to ATN from severe sepsis He has decreased effective arterial volume secondary to hypoalbuminemia, developing anasarca from copious IV fluid administration for rhabdomyolysis Also with nonanion gap metabolic acidosis, resolved today He is making urine without Bumex Appreciate nephrology consultation- want even or negative fluid balance next few days Follow CK for rhabdomyolysis, trending down hypokalemia today at 2.9, treated with PO replacement sodium bicarb PO (7) Rhabdomyolysis: CK >[address]11 on arrival, secondary to prolonged down time. CK increased after admission to 24,000 but is now decreased to 7,000 after copious IV fluids were given - stop fluids 03/02 -Friedman in place, closely monitor UOP -Follow serial CK -Monitor renal function and electrolytes and replace as needed -Appreciate nephrology consultation (8) Acute respiratory failure with hypoxia: Requiring 3 L nasal cannula and saturations at 99% Secondary to pneumonia and sepsis easier breathing today pulmonary/ICU following palliative care consult placed (9) Elevated troponin: Patient denies CP, palpitations. No EKG evidence of ischemia. With acute kidney injury and rhabdomyolysis as well as rapid atrial fibrillation all contributing to myocardial demand ischemia. Did not present with acute coronary syndrome -Troponin peaked today at 1.1 and back down again. Appreciate cardiology consultation Echocardiogram without wall motion abnormalities and with preserved EF -Continue ASA 81mg po daily but would hold if platelets less than 50 -Continue home metoprolol (10) Abnormal liver enzymes: Elevated LFTs most likely secondary to sepsis and rhabdomyolysis CT abdomen/pelvis with mild hepatic steatosis, normal gallbladder and pancreas. -Also now on amiodarone which is most likely a short-term solution (11) Multiple myeloma in remission: Patient receiving chemotherapy with Darzalex, last dose was 01/30/2020. Follows with Dr. Potts at the [facility] -LDH is quite elevated at 1000 and Uric acid normal, do not suspect tumor lysis syndrome Continue acyclovir for prophylaxis Follow CBC With multiple lytic bone lesions diffusely on imaging (12) Hypokalemia: Replaced and resolved Follow BMP and magnesium (13) Hypophosphatemia: Severely low-replaced and resolved Follow phosphorus level (14) CKD (chronic kidney disease): Baseline creatinine is around 1.4-1.7 With CHLOÉ as above -Avoid nephrotoxins -renally dose meds when appropriate -follow BMP (15) HTN (hypertension): Blood pressures are on the low side when he has rapid atrial fibrillation, but now improved after spontaneous conversion to sinus rhythm -Continue holding home HCTZ -Continue metoprolol with hold parameters (16) Fall: Likely secondary to weakness from pneumonia and sepsis CT of the cervical spine, head CT, chest/abdomen/pelvis CT without fractures or acute findings other than PNA (17) Pancytopenia: Secondary to multiple myeloma and chemotherapy as well as sepsis, possible DIC? Follow CBC in the morning Transfuse as needed (18) Prediabetes: Hemoglobin A1c elevated at 6.4% Follow Accu-Cheks NovoLog sliding scale insulin (19) Neuropathy: -We will now hold home gabapentin, doxepin while critically ill in the ICU Thought to be secondary to chemotherapy (20) Hypoalbuminemia: Albumin severely low at 1.6, likely secondary to cancer, poor nutrition, and sepsis Follow levels Third spacing (21) Paresthesia of left arm: As above, secondary to significant edema from rhabdomyolysis Watch for development of compartment syndrome Diuresing We will elevate arm on pillow (22) GERD (gastroesophageal reflux disease): Continue PPI (23) DVT prophylaxis: Heparin SQ was held by 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 due to worsening thrombocytopenia Disposition-transferred care to ICU on 03/02 Full code Admission and Anticipated Discharge Date Admission Date: February 29, 2020 Subjective patient breathing a little better today poor appetite less severe fevers today reviewed labs, Hb dropped to 6.0, appreciate consultation from hematology his bone marrow is suppressed from both myeloma and the chemotherapy to treat his disease discussed with palliative care, he will continue to be full code, he has named his sister and friend as decision makers Cr is coming down slowly, 2.8 this morning making urine without diuretics, K is 2.9, replacement given metabolic acidosis overnight, treated with bicarb, resolved this morning Review of Systems Review of Systems: All systems reviewed & are unremarkable except as noted in Subjective Constitutional: + fever, + chills, + sweats, + fatigue and + weakness Respiratory: + cough, + dyspnea, + dyspnea on exertion and + sputum production Cardiovascular: + edema; no chest pain Gastrointestinal: no abdominal pain, no nausea, no vomiting, no constipation and no diarrhea/loose stools Physical Exam Constitutional: well developed, + ill appearing and + edematous; no acute distress Neck: trachea midline, no thyromegaly + thick neck Respiratory: normal respiratory effort, lungs clear to auscultation + labored breathing, + uses accessory muscles and + tachypneic; no respiratory distress Auscultation: no crackles, no rales and no wheezes Cardiovascular: Rate/Rhythm: regular rhythm and + tachycardic Heart Sounds: normal S1 and normal S2; no murmur Vessels: no JVD Extremities: + edema (diffuse) Gastrointestinal (Abdomen): normal bowel sounds, soft, nontender, no hepatosplenomegaly Musculoskeletal: no cyanosis or clubbing, extremities motor strength 5/5 Skin: no rashes, warm and dry Lymphatic: no cervical or axillary lymphadenopathy Results & Data Results & Data ([facility]) Vital Signs (Past 12 Hours) Vital Signs Temp Pulse Pulse Resp BP Pulse Ox 03/06/20 20:00 38.2 C H 104 H 22 99 03/06/20 19:38 107 H 26 H 94 03/06/20 19:30 38.2 C H 100 H 32 H 158/78 H 96 03/06/20 19:00 38.1 C H 102 H 27 H 96 03/06/20 17:30 38.0 C H 102 H 31 H 135/77 96 03/06/20 17:00 38.1 C H 102 H 29 H 95 03/06/20 16:30 38.0 C H 98 H 23 151/75 H 95 03/06/20 16:00 37.9 C H 104 H 41 H 94 03/06/20 15:30 37.8 C H 100 H 93 H 29 H 157/74 H 100 03/06/20 15:00 104 H 40 H 95 03/06/20 14:31 101 H 17 97 03/06/20 14:30 103 H 33 H 143/75 H 96 03/06/20 14:00 101 H 28 H 97 03/06/20 13:31 95 H 27 H 98 03/06/20 13:30 96 H 23 165/82 H 97 03/06/20 13:00 96 H 27 H 98 03/06/20 12:31 97 H 21 97 03/06/20 12:30 98 H 23 135/72 98 03/06/20 12:00 96 H 25 H 97 03/06/20 11:30 101 H 34 H 146/72 H 03/06/20 11:17 95 H 24 98 03/06/20 11:00 98 H 33 H 97 03/06/20 10:30 97 H 35 H 148/67 H 97 03/06/20 10:00 90 25 H 99 03/06/20 09:30 103 H 28 H 144/72 H 97 03/06/20 09:00 98 H 19 98 Laboratory Results Laboratory Results - last 24 hr 03/05/20 03/05/20 03/06/20 20:52 20:57 03:23 WBC RBC Hgb Hct MCV MCH MCHC RDW Std Deviation RDW Coeff of Elvira Plt Count Immature Gran % (Auto) Neut % (Auto) Lymph % (Auto) [place] % (Auto) Eos % (Auto) Baso % (Auto) Neut # (Auto) Lymph # (Auto) [place] # (Auto) Eos # (Auto) Baso # (Auto) Immature Gran # (Auto) Absolute Nucleated RBC Nucleated RBC % (auto) Platelet Estimate Tear Drop Cells VBG pH VBG pCO2 VBG pO2 VBG HCO3 VBG O2 Saturation VBG Base Excess Sodium 140 142 Potassium 3.1 L 2.8 L Chloride 110 H 109 H Carbon Dioxide 20 L 24 Anion Gap 10.0 9.0 BUN 39 H 36 H Creatinine 3.07 H 2.95 H Est Cr Clr Drug Dosing 30.1 31.3 Est GFR ( Amer) 24.0 25.2 Est GFR (Non-Af Amer) 20.7 21.7 BUN/Creatinine Ratio 12.8 12.1 Glucose 201 H 228 H POC Glucose 213 H Calcium 7.1 L 6.9 L Phosphorus 2.4 L D Magnesium 2.0 Total Bilirubin 0.9 Direct Bilirubin 0.5 H AST 336 H ALT 84 H Alkaline Phosphatase 289 H Total Creatine Kinase 2513 H Total Protein 6.3 L Albumin 1.4 L Random Vancomycin Blood Type Antibody Screen Antibody Identification Antibody ID Referred Antibody ID Comment Direct Antiglob Test BRENT (IgG-AHG) BRENT, Polyspecific BRENT C3b, C3d 5 Min Crossmatch 03/06/20 03/06/20 03/06/20 03:23 03:23 03:28 WBC 2.38 L RBC 1.78 L Hgb 6.0 L* Hct 18.2 L* MCV 102.2 H MCH 33.7 MCHC 33.0 RDW Std Deviation 59.2 H RDW Coeff of Elvira 15.8 H Plt Count 49 L Immature Gran % (Auto) 0.8 Neut % (Auto) 82.0 Lymph % (Auto) 13.0 [place] % (Auto) 4.2 Eos % (Auto) 0.0 Baso % (Auto) 0.0 Neut # (Auto) 1.95 Lymph # (Auto) 0.31 L [place] # (Auto) 0.10 L Eos # (Auto) 0.00 Baso # (Auto) 0.00 Immature Gran # (Auto) 0.02 Absolute Nucleated RBC 0.07 H Nucleated RBC % (auto) 3.1 Platelet Estimate Decreased L Tear Drop Cells 1+ VBG pH 7.41 VBG pCO2 35 L VBG pO2 39 VBG HCO3 21 VBG O2 Saturation 71.7 VBG Base Excess -2.9 Sodium Potassium Chloride Carbon Dioxide Anion Gap BUN Creatinine Est Cr Clr Drug Dosing Est GFR ( Amer) Est GFR (Non-Af Amer) BUN/Creatinine Ratio Glucose POC Glucose Calcium Phosphorus Magnesium Total Bilirubin Direct Bilirubin AST ALT Alkaline Phosphatase Total Creatine Kinase Total Protein Albumin Random Vancomycin 20.7 Blood Type Antibody Screen Antibody Identification Antibody ID Referred Antibody ID Comment Direct Antiglob Test BRENT (IgG-AHG) BRENT, Polyspecific BRENT C3b, C3d 5 Min Crossmatch 03/06/20 03/06/20 03/06/20 05:32 07:15 09:03 WBC RBC Hgb Hct MCV MCH MCHC RDW Std Deviation RDW Coeff of Elvira Plt Count Immature Gran % (Auto) Neut % (Auto) Lymph % (Auto) [place] % (Auto) Eos % (Auto) Baso % (Auto) Neut # (Auto) Lymph # (Auto) [place] # (Auto) Eos # (Auto) Baso # (Auto) Immature Gran # (Auto) Absolute Nucleated RBC Nucleated RBC % (auto) Platelet Estimate Tear Drop Cells VBG pH VBG pCO2 VBG pO2 VBG HCO3 VBG O2 Saturation VBG Base Excess Sodium Potassium Chloride Carbon Dioxide Anion Gap BUN Creatinine Est Cr Clr Drug Dosing Est GFR ( Amer) Est GFR (Non-Af Amer) BUN/Creatinine Ratio Glucose POC Glucose 167 H Calcium Phosphorus Magnesium Total Bilirubin Direct Bilirubin AST ALT Alkaline Phosphatase Total Creatine Kinase Total Protein Albumin Random Vancomycin Blood Type O Positive Antibody Screen POSITIVE A Antibody Identification Panagglutinin due to drug Antibody ID Referred Pending Antibody ID Comment Direct Antiglob Test Negative BRENT (IgG-AHG) Neg BRENT, Polyspecific Neg BRENT C3b, C3d 5 Min Neg Crossmatch See Detail 03/06/20 03/06/20 03/06/20 11:10 11:40 16:33 WBC RBC Hgb Hct MCV MCH MCHC RDW Std Deviation RDW Coeff of Elvira Plt Count Immature Gran % (Auto) Neut % (Auto) Lymph % (Auto) [place] % (Auto) Eos % (Auto) Baso % (Auto) Neut # (Auto) Lymph # (Auto) [place] # (Auto) Eos # (Auto) Baso # (Auto) Immature Gran # (Auto) Absolute Nucleated RBC Nucleated RBC % (auto) Platelet Estimate Tear Drop Cells VBG pH VBG pCO2 VBG pO2 VBG HCO3 VBG O2 Saturation VBG Base Excess Sodium 143 Potassium 2.9 L Chloride 110 H Carbon Dioxide 25 Anion Gap 8.0 BUN 32 H Creatinine 2.82 H Est Cr Clr Drug Dosing 33.3 Est GFR ( Amer) 26.6 Est GFR (Non-Af Amer) 22.9 BUN/Creatinine Ratio 11.5 Glucose 154 H POC Glucose 154 H 188 H Calcium 7.0 L Phosphorus Magnesium Total Bilirubin Direct Bilirubin AST ALT Alkaline Phosphatase Total Creatine Kinase Total Protein Albumin Random Vancomycin Blood Type Antibody Screen Antibody Identification Antibody ID Referred Antibody ID Comment Direct Antiglob Test BRENT (IgG-AHG) BRENT, Polyspecific BRENT C3b, C3d 5 Min Crossmatch Medications Administered Current Inpatient Medications Acyclovir (Acyclovir 400 Mg Tab) 400 mg PO BID MIRLANDE Stop: 03/31/20 08:59 Last Admin: 03/06/20 09:04 Dose: 400 mg Documented by: Albuterol (Albut/Ipratrop 3mg/0.5mg Neb 3 Ml Vial) 3 ml NEB Q4R MIRLANDE Stop: 04/03/20 14:59 Last Admin: 03/06/20 19:38 Dose: 3 ml Documented by: Aspirin (Aspirin 81 Mg Ectab) 81 mg PO QAM [facility] Stop: 03/31/20 08:59 Last Admin: 03/03/20 07:45 Dose: 81 mg Documented by: Cyanocobalamin (Cyanocobalamin 500 Mcg Tablet (Vitamin B-12)) 1,000 mcg PO QAM MIRLANDE Stop: 03/31/20 08:59 Last Admin: 03/06/20 09:05 Dose: 1,000 mcg Documented by: Dextrose (Dextrose 50% 50 Ml Syringe) 25 - 50 ml IV UD PRN; Protocol PRN Reason: Hypoglycemia Protocol Stop: 03/31/20 00:29 Docusate Sodium (Docusate Sodium 100 Mg Cap) 100 mg PO DAILY PRN PRN Reason: Constipation Stop: 03/31/20 00:29 Fluticasone Propionate (Fluticasone Propionate Na Spr 16 Gm Btl) 2 sprays NA DAILY MIRLANDE Stop: 03/31/20 08:59 Last Admin: 03/06/20 09:05 Dose: 2 sprays Documented by: Gabapentin (Gabapentin 100 Mg Cap) 200 mg PO TID MIRLANDE Stop: 03/31/20 08:59 Last Admin: 03/02/20 08:30 Dose: 200 mg Documented by: Glucagon (Glucagon For Inj 1 Mg Vial) 1 mg SQ UD PRN; Protocol PRN Reason: Hypoglycemia Protocol Stop: 03/31/20 00:29 Glucose (Glucose 10 Tabs/Tube) 4 - 8 tabs PO UD PRN; Protocol PRN Reason: Hypoglycemia Protocol Stop: 03/31/20 00:29 Glucose (Glucose 40% Gel 15 Gm Tube) 15 - 30 gm PO UD PRN; Protocol PRN Reason: Hypoglycemia Protocol Stop: 03/31/20 00:29 Guaifenesin (Guaifenesin 600 Mg Tabcr) 1,200 mg PO Q12 MIRLANDE Stop: 04/01/20 20:59 Last Admin: 03/06/20 09:04 Dose: 1,200 mg Documented by: Heparin Sodium (Porcine) (Heparin 100 Unit/Ml 5ml Flush) 5 ml FLUSH PRN PRN PRN Reason: Flush Stop: 03/31/20 00:20 Heparin Sodium (Porcine) (Heparin Sod 5,000 Unit/0.5 Ml Vial) 7,500 units SQ Q8 MIRLANDE Stop: 03/31/20 05:59 Last Admin: 03/02/20 06:23 Dose: 7,500 units Documented by: Piperacillin Sod/Tazobactam (Sod 3.375 gm/ Dextrose) 115 mls @ 28.75 mls/hr IV Q8H [facility]; Protocol Stop: 03/08/20 17:59 Last Admin: 03/06/20 17:46 Dose: 28.7 mls/hr Documented by: Azithromycin 500 mg/ Dextrose 255 mls @ 127.5 mls/hr IV Q24H [facility] Stop: 03/15/20 13:44 Last Infusion: 03/06/20 15:02 Dose: Infused Documented by: Insulin Aspart (Insulin Aspart 100 Units/Ml 3 Ml Pen) 0 units SC ACHS [facility] Stop: 03/31/20 00:59 Last Admin: 03/06/20 16:34 Dose: 1 units Documented by: Levalbuterol HCl (Levalbuterol Hcl 0.63 Mg/3 Ml Neb) 0.63 mg NEB Q6R PRN PRN Reason: wheezing or SOB Stop: 04/01/20 12:59 Metoprolol Tartrate (Metoprolol Tartrate 1 Mg/Ml Vial) 5 mg IV Q4H PRN PRN Reason: Tachycardia Stop: 04/05/20 07:31 Last Admin: 03/06/20 07:56 Dose: 5 mg Documented by: Metoprolol Tartrate (Metoprolol Tartrate 50 Mg Tab) 50 mg PO Q6H [facility] Stop: 04/05/20 07:59 Last Admin: 03/06/20 15:03 Dose: 50 mg Documented by: Miscellaneous (Carbohydrates For Hypoglycemia ) 15 - 30 gm PO UD PRN PRN Reason: Hypoglycemia Protocol Stop: 03/31/20 00:29 Miscellaneous Information (Piperacill/Tazobac Consult Active) 1 ea N/A UD PRN PRN Reason: Consult Stop: 03/31/20 09:29 Pantoprazole Sodium (Pantoprazole 40 Mg Tab) 40 mg PO BID [facility] Stop: 03/31/20 08:59 Last Admin: 03/06/20 09:04 Dose: 40 mg Documented by: Sodium Chloride (Sodium Chlor 7% 4 Ml Neb) 4 ml NEB BIDR MIRLANDE Stop: 04/03/20 18:59 Last Admin: 03/06/20 19:38 Dose: 4 ml Documented by: PG Care Time/CCT Total # of Minutes Spent Total Time Spent with Patient: Total time spent is greater than 50% in coordination of care (as documented) at patient's floor/unit and/or counseling patient: Coding Level of Care Code 09202 Subseq Hosp Care Lvl 3 Diagnoses Coagulase negative Staphylococcus bacteremia R78.81; B95.7 Sepsis A41.9; R65.20; G93.40 Sepsis acute organ dysfunction status: with acute organ dysfunction Sepsis type: sepsis due to unspecified organism Severe sepsis acute organ dysfunction type: encephalopathy Severe sepsis shock status: without septic shock Anemia D64.9 Pneumonia J18.9 Pneumonia type: due to unspecified organism Atrial fibrillation with rapid ventricular response I48.91 CHLOÉ (acute kidney injury) N17.9 Rhabdomyolysis M62.82 Rhabdomyolysis type: non-traumatic Acute respiratory failure with hypoxia J96.01 Elevated troponin R77.8 Abnormal liver enzymes R74.8 Multiple myeloma in remission C90.01 Hypokalemia E87.6 Hypophosphatemia E83.39 CKD (chronic kidney disease) N18.9 HTN (hypertension) I10 Fall W19.XXXA Pancytopenia D61.818 Prediabetes R73.03 Neuropathy G62.9 Hypoalbuminemia E88.09 Paresthesia of left arm R20.2 GERD (gastroesophageal reflux disease) K21.9 DVT prophylaxis Z29.9 (1) Sepsis Sepsis acute organ dysfunction status: with acute organ dysfunction Sepsis type: sepsis due to unspecified organism Severe sepsis acute organ dysfunction type: encephalopathy Severe sepsis shock status: without septic shock Qualified Code(s): A41.9 - Sepsis, unspecified organism; R65.20 - Severe sepsis without septic shock; G93.40 - Encephalopathy, unspecified (2) Pneumonia Pneumonia type: due to unspecified organism (3) Rhabdomyolysis Rhabdomyolysis type: non-traumatic Qualified Code(s): M62.82 - Rhabdomyolysis
[2020-03-07 01:22] LABS: Hematocrit (blood only) 22.5 % (42-52); Hemoglobin 7.6 g/dL (14.0-18.0)
[2020-03-07] MEDS ORDERED: SODIUM CHLORIDE 0.9% 250 ML IV PRN (01:32)
[2020-03-07 02:14] LABS: Hematocrit (blood only) 22.1 % (42-52); Hemoglobin 7.5 g/dL (14.0-18.0); Mean Corpuscular Hemoglobin 34.2 pg (25-34); Mean Corpuscular Hgb Conc 33.9 g/dL (32-36); Mean Corpuscular Volume 100.9 fL (80-100); Nucleated RBC # (auto) 0.11 K/uL (0-0); Nucleated RBC % (auto) 4.8 %; Red Blood Count 2.19 M/uL (4.7-6.1); White Blood Count 2.31 K/uL (4.8-10.8)
[2020-03-07] MEDS: PIPERACILLIN/TAZOBACTAM 3.375 GM in DEXTROSE 5% 100 ML IV SCH ×2 (02:19→09:19)
[2020-03-07] MEDS: METOPROLOL TARTRATE 50 MG TAB PO SCH ×4 (02:20→21:57)
[2020-03-07 02:30] LABS: Albumin Level 1.5 gm/dl (3.4-5.0); BUN Creatinine Ratio 9.6 (10-20); Calcium 7.4 mg/dl (8.5-10.1); Est GFR (African American) 25.4; Est GFR (Non-African American) 21.9; Potassium 3.1 mmol/L (3.5-5.1)
[2020-03-07 02:36] LABS: Mean Platelet Volume 11.2 fL (7.4-10.4); Platelet Count 43 K/uL (130-400)
[2020-03-07 02:40] LABS: Basophils # (auto) 0.01 K/uL (0-0.2); Basophils % (auto) 0.4 %; Eosinophils # (auto) 0.02 K/uL (0-0.5); Eosinophils % (auto) 0.9 %; Immature Granulocytes # (auto) 0.02 K/uL (0.00-0.02); Immature Granulocytes % (auto) 0.9 %; Lymphocytes # (auto) 0.36 K/uL (1.2-3.4); Lymphocytes % (auto) 15.6 %; Monocytes # (auto) 0.14 K/uL (0.11-0.59); Monocytes % (auto) 6.1 %; Neutrophils # (auto) 1.76 K/uL (1.4-6.5); Neutrophils % (auto) 76.1 %; Polychromasia 1+
[2020-03-07 02:51] LABS: Bilirubin Direct 0.7 mg/dl (0-0.2); Bilirubin,Total 1.1 mg/dl (0.2-1); Phosphorus 2.3 mg/dl (2.5-4.9); Total Protein 6.3 gm/dl (6.4-8.2)
[2020-03-07] MEDS: ALBUT/IPRATROP 3MG/0.5MG NEB 3 ML VIAL NEB SCH ×6 (03:41→23:27)
[2020-03-07] MEDS ORDERED: POTASSIUM PHOS 3 MMOL/1 ML INFUSION IV STA (05:02)
[2020-03-07] MEDS ORDERED: POTASSIUM PHOSPHATE 21 MMOL in SODIUM CHLORIDE 0.9% 500 ML IV ONE (05:15)
--- NOTE | 2020-03-07 05:15 | Electrocardiogram Report ---
Test Reason : Blood Pressure : / mmHG Vent. Rate : 109 BPM Atrial Rate : 147 BPM P-R Int : 168 ms QRS Dur : 084 ms QT Int : 334 ms P-R-T Axes : 039 037 024 degrees QTc Int : 449 ms Sinus tachycardia with Premature atrial complexes Premature ventricular complexes Nonspecific T wave abnormality Low voltage QRS Borderline ECG When compared with ECG of 05-MAR-2020 12:54, Premature atrial complexes are now Present Premature ventricular complexes are now Present Nonspecific T wave abnormality, worse in Inferior leads Nonspecific T wave abnormality, improved in Anterolateral leads Confirmed by Tam Munoz ([id number]) on 03/07/2020 5:15:20 AM Referred By: REFERRED SELF Confirmed By:Tam Munoz
--- NOTE | 2020-03-07 06:09 | Critical Care Progress Note ---
Date of Service March 07, 2020 Assessment & Plan (1) Atrial fibrillation with rapid ventricular response: Reason Critically Ill: 64 yo M who PMHx of multiple myeloma, currently undergoing chemotherapy, who was admitted with severe sepsis. Patient developed A-fib with rapid ventricular response, and was transferred to the ICU with possible need for vasopressor support. He initially converted to sinus rhythm when placed on an amiodarone drip; however he has had several recurrent episodes of A-fib with RVR. Amiodarone drip was discontinued yesterday due to a prolonged QT interval with intent to transition to oral amiodarone today. His A-fib broke with two 5mg pushes of IV Lopressor this morning. Currently, he is in sinus rhythm. He continues to maintain goal MAPs without pressors. The source of his sepsis is thought to be from a left lobar pneumonia and gram pos bacteremia. Patient underwent flexible bronchoscopy performed on 03/05 which showed significant mucous plugging in L upper lobe and macerated pleural epithelium, (likely due to thrombocytopenia) but no evidence of obstruction. Fluid analysis pending. His urine legionella antigen returned positive on 03/05 and macrolide coverage was added to his antibiotic regimen. Currently on broad spectrum antibiotics (vanc/zosyn/azithro). His hypoxia has resolved, breathing well on room air. It is unclear if this is due to adequate treatment of his PNA or due to improvement in his Hgb with blood transfusion. He continues to be febrile, but his fever curve has improved overall since admission. His kidney function remains poor but has plateaued. He developed a non-gapped metabolic acidosis for which a sodium bicarb drip was started overnight. Bicarb has normalized today; drip discontinued. Patient met with palliative care and wishes to continue to pursue aggressive therapy. Neuro: - metabolic encephalopathy; resolving, likely secondary to sepsis - holding home doxepin and gabapentin Cardiac: * A fib with RVR - resolved - initially converted to sinus rhythm on amiodarone drip; drip was discontinued due to his worsening QTc interval prolongation. QTc interval has normalized with discontinuation of amiodarone. - now converted to sinus rhythm - continue metoprolol 50mg, QID - [id number] score of 1 - holding anticoagulation given ongoing thrombocytopenia and anemia - continuous manager cardiac - cause of A-fib likely his fever/sepsis - cardiology following, appreciate recs Respiratory: * Left upper lobar pneumonia - see below - currently saturating 91% on room air - no history of underlying lung disease GI: * Transaminitis - ALT 84, down from 94 - AST 336, down from 439 - likely secondary to hypoperfusion (sepsis) - continue to trend * Hypoalbuminemia - Albumin low at 1.6 - likely secondary to multiple myeloma - continue Protonix BID - NPO RENAL/LYTES: * CHLOÉ - Cr remains at 2.9, BUN at 28, ratio 9 - etiology: albumin low, suspect third spacing of fluid; ATN likely contributory as patient was septic upon ICU admission - non-oliguric, IV fluids discontinued - lactic acidosis resolved with bicarb drip - trend BMP - nephrology following, appreciate recs * Rhabdomyolysis - CK level continues to trend down - fluids discontinued - patient found down for > 24 hours prior to presentation * Proteinuria - 3+ protein on UA - etiology: myeloma kidney - electrolyte replacement per ICU protocol - calcium corrects to normal with low albumin : - azar in place, strict Is/Os ENDO: - Insulin per ICU protocol - TSH normal 1.6 HEME: * Multiple Myeloma - patient used to follow with Dr. 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 - oncology consulted, appreciate recs * Thrombocytopenia - platelet level 43 - likely secondary to myeloma (bone marrow suppression) and sepsis - holding anticoagulation and home aspirin - trend CBC - no active bleeding at this time * Macrocytic Anemia - Hgb 7.5, up from 6.0 - MCV 103.3 - likely secondary to myeloma (bone marrow suppression); no obvious source of bleeding - 2 units irritated pRBCs transfused overnight ID: * Pancytopenic - ANC normal, 1.7/ul; oncology recommending Neupogen if ANC drops below 1 - patient is immunocompromised (hx multiple myeloma on chemotherapy) - continue acyclovir prophylaxis * Fever - improving - fever curve improved since admission - source: infection vs. drug vs. dysautonomia vs. CVA - patient does have ongoing PNA and gram + bacteremia, on abx - lack of generalized LAD and classic rash, drug fever/DRESS low on differential - neuro exam normal, CVA low suspicion * Pneumonia - dense left upper lobe infiltrate visualized on imaging - legionella antigen returned positive on 03/05; azithromycin coverage added (recommend 10 day course) - bronchoscopy 03/05, with extensive mucous plugging, no evidence of obstruction. - 1 of 2 bronch wash samples growing richard. Fungal culture pending. Patient was initially started on anti-fungal treatment, covered dropped 03/03. Beta Glucan retuned at 372. - procalcitonin initially elevated to 35, down to 1 - Flu negative, Covid negative - MRSA swab negative * Gram + bacteremia - Blood cultures 02/28: 1 of 2 growing coag neg staph not reena. drawn from R arm - Blood cultures 03/01: 1 of 2 growing coag neg staph not reena. 1 of 2 growing staph, awaiting speciation. MRSA PCR negative. both drawn from port - Blood cultures 03/04: no growth to date; continue to follow. 1 drawn from port (10 cc discarded), 1 drawn from R arm - recommend 14 day course of zosyn (patient is immunocompromised, at risk for pseudomonas) and 14 day course of vancomycin (1 blood culture grew coag neg staph that was resistant to oxacillin) - Upper extremity US 03/04 showing no evidence of septic emboli, although not all vessels were visualized - chemo port in place has been de-accessed--> consider surgical removal in the setting of gram + bacteremia - echo on 03/01/20, which noted no valvular abnormalities; consider repeating given final result of blood cultures - ID teleconsult placed; appreciate recs Integ: * Blisters - no mucous membrane involvement - dermatology consult placed, evaluation not consistent with bullous pemphigoid - likely manifestation of 3rd spacing of excess fluid - wound care nurse consulted LINES/IV ACCESS: Peripheral IV and Azar catheter, chemo port CODE STATUS: Full DVT PROPHYLAXIS: SCDs; chemoprophylaxis contraindicated due to ongoing anemia and thrombocytopenia Thank you for allowing us to participate in the care of this patient. Please refer to my attending physician's documentation for any further recommendations. Admission and Anticipated Discharge Date Admission Date: February 29, 2020 Supervising Physician Co-Signing Physician Notes Dr. Doyle was resident physician during care of patient. I separately evaluated patient for [place] portions of the history and the exam. I was present during the critical portion of medical decision making, and I discussed the case with the resident. I generally agree with the findings and plan. Patient was discussed in multidisciplinary rounds Oxygenation improved which may be secondary to increased oxygen carrying capacity associated from blood transfusion also could be improvement in presumptive pneumonia. Continue with Zithromax QTC tolerable that will cover the Legionella. Patient continues to improve, again PCR for oxacillin resistance was negative, however, this is coag negative staph that could possibly carry oxacillin resistance. He is been treated with vancomycin and remains therapeutic at this time. He has a negative set of blood cultures from 03/04, given the 2 organisms in the initial blood culture as it is also reported that they are from the port we will continue for 14 days of vancomycin therapy with lock therapy. Ultimately this patient is immunocompromised at risk for Pseudomonas with previous hypoxia that could be related to pneumonia will continue 14-day therapy of Zosyn vancomycin, 10 days of Zithromax therapy in conjunction with previous doxycycline. Unless infectious disease provides alternative recommendations. He is no longer hypoxic he is tolerating room air and does not appear to be in septic shock, at least the sepsis appears to be appropriately treated. He can be downgraded out of the ICU today Subjective Patient received 2 units of irradiated pRBCs overnight. He is feeling better today - much more alert and conversant. Physical Exam Constitutional: + ill appearing, + obese and cooperative Eyes: PERRL, conjunctivae normal, anicteric sclerae ENMT: external ear and nose normal, oropharynx normal Neck: normal visual inspection and trachea midline Respiratory: normal respiratory effort Auscultation: + rhonchi (present dif fusely throughotu) and + wheezes (left upper lung field) Cardiovascular: Rate/Rhythm: regular rate and regular rhythm Heart Sounds: normal S1 and normal S2; no murmur Chest (Breasts): Chest: + vascular access device or port Gastrointestinal (Abdomen): normal bowel sounds, soft, nontender, no hepatosplenomegaly Skin: no rashes, warm and dry Psychiatric: Orientation: alert and oriented x 3 Results & Data Results & Data ([facility]) Vital Signs (Past 12 Hours) Vital Signs Temp Pulse Pulse Resp BP Pulse Ox 03/07/20 04:31 37.9 C H 94 H 24 152/78 H 96 03/07/20 04:25 37.9 C H 91 H 23 152/78 H 95 03/07/20 04:15 37.9 C H 88 19 95 03/07/20 04:09 37.9 C H 94 H 22 177/84 H 96 03/07/20 04:00 37.9 C H 90 21 95 03/07/20 03:55 37.9 C H 91 H 24 162/85 H 99 03/07/20 03:45 38.0 C H 89 36 H 99 03/07/20 03:41 94 H 28 H 97 03/07/20 03:39 38.0 C H 88 23 158/87 H 97 03/07/20 03:30 38.0 C H 92 H 31 H 97 03/07/20 03:24 38.0 C H 96 H 28 H 172/84 H 97 03/07/20 03:15 38.0 C H 92 H 24 98 03/07/20 03:09 38.0 C H 97 H 30 H 171/80 H 97 03/07/20 03:00 38.0 C H 97 H 26 H 97 03/07/20 02:54 38.0 C H 99 H 31 H 158/79 H 97 03/07/20 02:45 38.1 C H 97 H 27 H 98 03/07/20 02:39 38.1 C H 96 H 29 H 158/81 H 97 03/07/20 02:30 38.1 C H 100 H 28 H 96 03/07/20 02:24 38.1 C H 99 H 32 H 160/81 H 97 03/07/20 02:22 38.1 C H 98 H 28 H 138/90 97 03/07/20 02:15 38.1 C H 103 H 19 96 03/07/20 02:10 38.1 C H 101 H 21 138/90 97 03/07/20 02:00 38.2 C H 99 H 29 H 97 03/07/20 01:54 38.2 C H 96 H 31 H 160/83 H 97 03/07/20 01:45 38.2 C H 100 H 29 H 97 03/07/20 01:41 38.2 C H 104 H 18 166/81 H 96 03/07/20 01:30 38.2 C H 96 H 24 98 03/07/20 01:24 38.2 C H 96 H 28 H 146/79 H 97 03/07/20 01:15 38.2 C H 97 H 26 H 96 03/07/20 01:09 38.2 C H 101 H 28 H 157/74 H 97 03/07/20 01:00 38.2 C H 101 H 42 H 96 03/07/20 00:54 38.2 C H 101 H 25 H 166/73 H 96 03/07/20 00:45 38.3 C H 101 H 20 97 03/07/20 00:39 38.3 C H 98 H 29 H 156/79 H 95 03/07/20 00:30 38.3 C H 103 H 19 97 03/07/20 00:24 38.3 C H 99 H 26 H 158/80 H 97 03/07/20 00:15 38.3 C H 99 H 22 169/71 H 97 03/07/20 00:00 38.3 C H 97 H 28 H 97 03/06/20 23:54 38.3 C H 98 H 30 H 158/87 H 97 03/06/20 23:45 38.3 C H 100 H 26 H 97 03/06/20 23:39 38.3 C H 96 H 25 H 167/82 H 97 03/06/20 23:30 38.3 C H 100 H 31 H 96 03/06/20 23:24 38.3 C H 99 H 28 H 153/78 H 96 03/06/20 23:15 38.3 C H 99 H 27 H 98 03/06/20 23:09 38.4 C H 97 H 23 167/77 H 99 03/06/20 23:00 38.4 C H 100 H 99 H 26 H 96 03/06/20 22:54 38.4 C H 98 H 28 H 138/86 97 03/06/20 22:45 38.4 C H 95 H 26 H 97 03/06/20 22:39 38.4 C H 101 H 24 153/103 H 96 03/06/20 22:30 38.4 C H 103 H 29 H 98 03/06/20 22:24 38.4 C H 103 H 30 H 157/77 H 97 03/06/20 22:15 38.3 C H 106 H 33 H 96 03/06/20 22:06 38.3 C H 106 H 30 H 164/72 H 97 03/06/20 22:05 38.3 C H 97 H 28 H 158/87 H 97 03/06/20 22:00 38.3 C H 105 H 28 H 96 03/06/20 21:30 38.3 C H 109 H 31 H 164/72 H 95 03/06/20 21:00 38.3 C H 115 H 20 94 03/06/20 20:00 38.2 C H 104 H 22 99 03/06/20 19:38 107 H 26 H 94 03/06/20 19:30 38.2 C H 100 H 32 H 158/78 H 96 03/06/20 19:00 38.1 C H 102 H 27 H 96 Resident Activity Tracking Resident Involvement: Resident Care Provided Care Provided: [facility]
[2020-03-07] MEDS: SODIUM CHLOR 7% 4 ML NEB NEB SCH ×2 (07:09→19:14)
[2020-03-07] MEDS: POTASSIUM CHLORIDE / WTR 10 MEQ/100 ML PLCT IV SCH ×4 (07:09→10:49)
[2020-03-07] MEDS: ACYCLOVIR 400 MG TAB PO SCH ×2 (07:48→21:56)
[2020-03-07] MEDS: CYANOCOBALAMIN 500 MCG TABLET (VITAMIN B-12) PO SCH (07:49)
[2020-03-07] MEDS: FLUTICASONE PROPIONATE NA SPR 16 GM BTL SCH (07:49)
[2020-03-07] MEDS: PANTOprazole 40 MG TAB PO SCH ×2 (07:49→21:55)
[2020-03-07] MEDS: guaiFENesin 600 MG TABCR PO SCH ×2 (07:49→21:55)
[2020-03-07] MEDS: INSULIN ASPART 100 UNITS/ML 3 ML PEN SC SCH ×4 (07:57→22:16)
--- NOTE | 2020-03-07 08:20 | Billing Data ---
Date of Service March 06, 2020 Coding Level of Care Code Critical Care 1st 30-74 mins Time Spent (min) 40
--- NOTE | 2020-03-07 10:24 | Billing Data ---
Date of Service March 07, 2020 Coding Level of Care Code 74606 Subseq Hosp Care Lvl 3
[2020-03-07] MEDS ORDERED: VANCOMYCIN CONSULT ACTIVE PRN (10:39)
--- NOTE | 2020-03-07 11:15 | Hospitalist Progress Note ---
Date of Service March 07, 2020 Assessment & Plan (1) Coagulase negative Staphylococcus bacteremia: 3 out of 4 cultures growing coag negative staph, resistant to oxacillin start on Vancomycin 03/05 continue Zosyn IV repeat blood cultures drawn, 03/04, no growth thus far at three days may need port removed no septic clots on venous US might need repeat echocardiogram to firmly ruler out vegetations, initial echo showed no vegetations if cultures from 03/04 do grow bacteria then plan for port removal, SKIP (2) Sepsis: Severe sepsis This patient is a 64yo C male found down at home x24 hours, with acute metabolic encephalopathy, lactic acidosis. Febrile with temperature of 107.8 /tachycardic/tachypneic on arrival. Found with RUPINDER PNA on chest x-ray. Procal elevated at 2.27. Flu negative, Covid negative MRSA swab negative Immunocompromised from multiple myeloma with port in place Blood cultures: 02/28 with coag negative staph, 03/01 with coag negative staph, repeat cultures 03/04 UA with seemingly contaminated sample, urine culture no growth Procalcitonin significantly elevated With lactic acidosis-lactate elevated at 3.6 on admission and then down to 1.9 less febrile today He is not neutropenic but he is leukopenic urine legionella positive, continue Zithromax 500mg daily with close attention to QTc continue Zosyn and Vancomycin no fungal coverage needed poor prognosis at this time, he is slowly getting better but 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, 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 (3) Anemia: macrocytic, down to 6.0 03/06 this is due to marrow failure, suppression from both myeloma and chemotherapy appreciate hematology consultation will transfuse 2 units but type/cross is send out due to being on chemotherapy, needs irradiated product Hb up to 7.5 today after transfusion repeat H/H in the morning (4) Pneumonia: Chest x-ray with RUPINDER socked in PNA-the source of his sepsis, likely a strep pneumonia however, urine legionella positive change doxy to Zithromax 500mg daily continue Zosyn, add Vancomycin bronchoscopy 03/05, lavage with cultures taken breathing is better, down to room air today (5) Atrial fibrillation with rapid ventricular response: Paroxysmal atrial fibrillation with heart rates at times to the 190s Rates only improved to the 150s with IV Lopressor converted to sinus rhythm, sinus tachycardia on amiodarone, continue drip at 0.5mg/hr change to PO amiodarone 03/05 had some brief RVR episodes 03/06 that resolved with Lopressor 5mg IV push increase metoprolol to 50mg QID cardiology following [id number] score is 1 -Appreciate cardiology consultation-recommends against anticoagulation at this time given higher risk for bleeding given multiple myeloma, anemia and worsening thrombocytopenia echo was largely normal (6) CHLOÉ (acute kidney injury): With creatinine elevated at 2.4 on admission and initially improved, but then peaked at 3.07 Cr is 2.9 today continue to monitor, no role for diuretics today Urinalysis on admission with granular casts,'s most likely secondary to ATN from severe sepsis He has decreased effective arterial volume secondary to hypoalbuminemia, developing anasarca from copious IV fluid administration for rhabdomyolysis Also with nonanion gap metabolic acidosis, resolved He is making urine without Bumex Appreciate nephrology consultation- want even or negative fluid balance next few days Follow CK for rhabdomyolysis, trending down hypokalemia today at 3.1, treated with PO replacement sodium bicarb PO (7) Rhabdomyolysis: CK >16009 on arrival, secondary to prolonged down time. CK increased after admission to 24,000 but is now decreased to 1500 after copious IV fluids were given - stopped fluids 03/02 -Friedman in place, closely monitor UOP -Follow serial CK -Monitor renal function and electrolytes and replace as needed -Appreciate nephrology consultation (8) Acute respiratory failure with hypoxia: Requiring 3 L nasal cannula and saturations at 99% Secondary to pneumonia and sepsis easier breathing today, down to room air today pulmonary following palliative care consult placed (9) Elevated troponin: Patient denies CP, palpitations. No EKG evidence of ischemia. With acute kidney injury and rhabdomyolysis as well as rapid atrial fibrillation all contributing to myocardial demand ischemia. Did not present with acute coronary syndrome -Troponin peaked at 1.1 and back down again. Appreciate cardiology consultation Echocardiogram without wall motion abnormalities and with preserved EF -Continue ASA 81mg po daily but would hold if platelets less than 50 -Continue home metoprolol (10) Abnormal liver enzymes: Elevated LFTs most likely secondary to sepsis and rhabdomyolysis CT abdomen/pelvis with mild hepatic steatosis, normal gallbladder and pancreas. -Also now on amiodarone which is most likely a short-term solution (11) Multiple myeloma in remission: Patient receiving chemotherapy with Darzalex, last dose was 01/30/2020. [facility] -LDH is quite elevated at 1000 and Uric acid normal, do not suspect tumor lysis syndrome Continue acyclovir for prophylaxis Follow CBC With multiple lytic bone lesions diffusely on imaging (12) Hypokalemia: Replace today Follow BMP and magnesium (13) Hypophosphatemia: Severely low-replaced and resolved Follow phosphorus level (14) CKD (chronic kidney disease): Baseline creatinine is around 1.4-1.7 With CHLOÉ as above -Avoid nephrotoxins -renally dose meds when appropriate -follow BMP (15) HTN (hypertension): Blood pressures are on the low side when he has rapid atrial fibrillation, but now improved after spontaneous conversion to sinus rhythm -Continue holding home HCTZ -Continue metoprolol with hold parameters (16) Fall: Likely secondary to weakness from pneumonia and sepsis CT of the cervical spine, head CT, chest/abdomen/pelvis CT without fractures or acute findings other than PNA (17) Pancytopenia: Secondary to multiple myeloma and chemotherapy as well as sepsis, possible DIC? Follow CBC in the morning Transfuse as needed (18) Prediabetes: Hemoglobin A1c elevated at 6.4% Follow Accu-Cheks NovoLog sliding scale insulin (19) Neuropathy: -We will now hold home gabapentin, doxepin while critically ill in the ICU Thought to be secondary to chemotherapy (20) Hypoalbuminemia: Albumin severely low at 1.5, likely secondary to cancer, poor nutrition, and sepsis Follow levels Third spacing (21) Paresthesia of left arm: As above, secondary to significant edema from rhabdomyolysis Watch for development of compartment syndrome Diuresing We will elevate arm on pillow (22) GERD (gastroesophageal reflux disease): Continue PPI (23) DVT prophylaxis: Heparin SQ was held by structural technician due to worsening thrombocytopenia Disposition-transfer to PCU today, PT/OT Full code Admission and Anticipated Discharge Date Admission Date: February 29, 2020 Subjective patient breathing better today, actually down to room air today he has an intermittently productive cough, mucous is very thick, difficult to get up less fevers today, less edema advance his appetite today, he is tired of liquids, no nausea reviewed labs, WBC 2.3, Hb 7.5 (after transfusion), plts 43k Cr is 2.9, K 3.1, phosphorus 2.3, CK down to 1650, albumin low at 1.[address] Monteiro, will transfer to PCU today Review of Systems Review of Systems: All systems reviewed & are unremarkable except as noted in Subjective Constitutional: + fever, + chills, + sweats, + fatigue, + weakness and + daytime sleepiness Respiratory: + cough, + chest congestion, + dyspnea and + sputum production; no wheezing Cardiovascular: + edema; no chest pain, no palpitations and no syncope Gastrointestinal: no abdominal pain, no nausea, no vomiting, no constipation and no diarrhea/loose stools Physical Exam Constitutional: well developed, + ill appearing and + edematous; no acute distress Neck: trachea midline, no thyromegaly + thick neck Respiratory: + cough and + tachypneic; no respiratory distress Auscultation: no crackles, no rales and no wheezes Cardiovascular: Rate/Rhythm: regular rate and regular rhythm Heart Sounds: normal S1 and normal S2; no murmur Vessels: no JVD Extremities: + edema (diffuse) Gastrointestinal (Abdomen): normal bowel sounds, soft, nontender, no hepatosplenomegaly Musculoskeletal: no cyanosis or clubbing, extremities motor strength 5/5 Skin: no rashes, warm and dry (blistering left forearm) Neurologic: patellar DTR's 2+ bilat, sensation intact and PERRL, EOMI, accommodation nl, no face palsy, no dysarthria Psychiatric: Orientation: alert and oriented x 3 Affect: + flat affect Lymphatic: no cervical or axillary lymphadenopathy Results & Data Results & Data ([facility]) Vital Signs (Past 12 Hours) Vital Signs Temp Pulse Pulse Pulse Resp BP Pulse Ox 03/07/20 11:08 100 H 24 93 03/07/20 10:10 37.8 C H 97 H 22 159/93 H 91 03/07/20 10:00 37.8 C H 94 H 24 91 03/07/20 09:11 37.7 C H 105 H 23 91 03/07/20 09:10 37.7 C H 102 H 27 H 175/87 H 91 03/07/20 09:00 37.7 C H 96 H 24 92 03/07/20 07:55 37.6 C H 97 H 23 161/102 H 96 03/07/20 07:25 37.7 C H 90 21 167/94 H 100 03/07/20 07:10 82 25 H 97 03/07/20 04:31 37.9 C H 94 H 24 152/78 H 96 03/07/20 04:25 37.9 C H 91 H 23 152/78 H 95 03/07/20 04:15 37.9 C H 88 19 95 03/07/20 04:09 37.9 C H 94 H 22 177/84 H 96 03/07/20 04:00 37.9 C H 90 21 95 03/07/20 03:55 37.9 C H 91 H 24 162/85 H 99 03/07/20 03:45 38.0 C H 89 36 H 99 03/07/20 03:41 94 H 28 H 97 03/07/20 03:39 38.0 C H 88 23 158/87 H 97 03/07/20 03:30 38.0 C H 92 H 31 H 97 03/07/20 03:24 38.0 C H 96 H 28 H 172/84 H 97 03/07/20 03:15 38.0 C H 92 H 24 98 03/07/20 03:09 38.0 C H 97 H 30 H 171/80 H 97 03/07/20 03:00 38.0 C H 97 H 26 H 97 03/07/20 02:54 38.0 C H 99 H 31 H 158/79 H 97 03/07/20 02:45 38.1 C H 97 H 27 H 98 03/07/20 02:39 38.1 C H 96 H 29 H 158/81 H 97 03/07/20 02:30 38.1 C H 100 H 28 H 96 03/07/20 02:24 38.1 C H 99 H 32 H 160/81 H 97 03/07/20 02:22 38.1 C H 98 H 28 H 138/90 97 03/07/20 02:15 38.1 C H 103 H 19 96 03/07/20 02:10 38.1 C H 101 H 21 138/90 97 03/07/20 02:00 38.2 C H 99 H 29 H 97 03/07/20 01:54 38.2 C H 96 H 31 H 160/83 H 97 03/07/20 01:45 38.2 C H 100 H 29 H 97 03/07/20 01:41 38.2 C H 104 H 18 166/81 H 96 03/07/20 01:30 38.2 C H 96 H 24 98 03/07/20 01:24 38.2 C H 96 H 28 H 146/79 H 97 03/07/20 01:15 38.2 C H 97 H 26 H 96 03/07/20 01:09 38.2 C H 101 H 28 H 157/74 H 97 03/07/20 01:00 38.2 C H 101 H 42 H 96 03/07/20 00:54 38.2 C H 101 H 25 H 166/73 H 96 03/07/20 00:45 38.3 C H 101 H 20 97 03/07/20 00:39 38.3 C H 98 H 29 H 156/79 H 95 03/07/20 00:30 38.3 C H 103 H 19 97 03/07/20 00:24 38.3 C H 99 H 26 H 158/80 H 97 03/07/20 00:15 38.3 C H 99 H 22 169/71 H 97 03/07/20 00:00 38.3 C H 97 H 28 H 97 03/06/20 23:54 38.3 C H 98 H 30 H 158/87 H 97 03/06/20 23:45 38.3 C H 100 H 26 H 97 03/06/20 23:39 38.3 C H 96 H 25 H 167/82 H 97 03/06/20 23:30 38.3 C H 100 H 31 H 96 03/06/20 23:24 38.3 C H 99 H 28 H 153/78 H 96 03/06/20 23:15 38.3 C H 99 H 27 H 98 Laboratory Results Laboratory Results - last 24 hr 03/06/20 03/06/20 03/06/20 05:32 11:10 11:40 WBC RBC Hgb Hct MCV MCH MCHC RDW Std Deviation RDW Coeff of Elvira Plt Count MPV Immature Gran % (Auto) Neut % (Auto) Lymph % (Auto) [place] % (Auto) Eos % (Auto) Baso % (Auto) Neut # (Auto) Lymph # (Auto) [place] # (Auto) Eos # (Auto) Baso # (Auto) Immature Gran # (Auto) Absolute Nucleated RBC Nucleated RBC % (auto) Polychromasia Sodium 143 Potassium 2.9 L Chloride 110 H Carbon Dioxide 25 Anion Gap 8.0 BUN 32 H Creatinine 2.82 H Est Cr Clr Drug Dosing 33.3 Est GFR ( Amer) 26.6 Est GFR (Non-Af Amer) 22.9 BUN/Creatinine Ratio 11.5 Glucose 154 H POC Glucose 154 H Calcium 7.0 L Phosphorus Magnesium Total Bilirubin Direct Bilirubin AST ALT Alkaline Phosphatase Total Creatine Kinase Total Protein Albumin Random Vancomycin Blood Type O Positive Antibody Screen POSITIVE A Antibody Identification Panagglutinin due to drug Antibody ID Comment Direct Antiglob Test Negative BRENT (IgG-AHG) Neg BRENT, Polyspecific Neg BRENT C3b, C3d 5 Min Neg Crossmatch See Detail 03/06/20 03/06/20 03/07/20 16:33 21:33 01:13 WBC RBC Hgb 7.6 L Hct 22.5 L MCV MCH MCHC RDW Std Deviation RDW Coeff of Elvira Plt Count MPV Immature Gran % (Auto) Neut % (Auto) Lymph % (Auto) [place] % (Auto) Eos % (Auto) Baso % (Auto) Neut # (Auto) Lymph # (Auto) [place] # (Auto) Eos # (Auto) Baso # (Auto) Immature Gran # (Auto) Absolute Nucleated RBC Nucleated RBC % (auto) Polychromasia Sodium Potassium Chloride Carbon Dioxide Anion Gap BUN Creatinine Est Cr Clr Drug Dosing Est GFR ( Amer) Est GFR (Non-Af Amer) BUN/Creatinine Ratio Glucose POC Glucose 188 H 163 H Calcium Phosphorus Magnesium Total Bilirubin Direct Bilirubin AST ALT Alkaline Phosphatase Total Creatine Kinase Total Protein Albumin Random Vancomycin Blood Type Antibody Screen Antibody Identification Antibody ID Comment Direct Antiglob Test BRENT (IgG-AHG) BRENT, Polyspecific BRENT C3b, C3d 5 Min Crossmatch 03/07/20 03/07/20 03/07/20 02:04 02:04 07:56 WBC 2.31 L RBC 2.19 L Hgb 7.5 L Hct 22.1 L MCV 100.9 H MCH 34.2 H MCHC 33.9 RDW Std Deviation 63.0 H RDW Coeff of Elvira 17.0 H Plt Count 43 L MPV 11.2 H Immature Gran % (Auto) 0.9 Neut % (Auto) 76.1 Lymph % (Auto) 15.6 [place] % (Auto) 6.1 Eos % (Auto) 0.9 Baso % (Auto) 0.4 Neut # (Auto) 1.76 Lymph # (Auto) 0.36 L [place] # (Auto) 0.14 Eos # (Auto) 0.02 Baso # (Auto) 0.01 Immature Gran # (Auto) 0.02 Absolute Nucleated RBC 0.11 H Nucleated RBC % (auto) 4.8 Polychromasia 1+ Sodium 146 H Potassium 3.1 L Chloride 114 H Carbon Dioxide 27 Anion Gap 5.0 BUN 28 H Creatinine 2.93 H Est Cr Clr Drug Dosing 32.0 Est GFR ( Amer) 25.4 Est GFR (Non-Af Amer) 21.9 BUN/Creatinine Ratio 9.6 L Glucose 111 H POC Glucose 158 H Calcium 7.4 L Phosphorus 2.3 L Magnesium 2.0 Total Bilirubin 1.1 H Direct Bilirubin 0.7 H AST 277 H ALT 80 H Alkaline Phosphatase 332 H Total Creatine Kinase 1650 H Total Protein 6.3 L Albumin 1.5 L Random Vancomycin Blood Type Antibody Screen Antibody Identification Antibody ID Comment Direct Antiglob Test BRENT (IgG-AHG) BRENT, Polyspecific BRENT C3b, C3d 5 Min Crossmatch 03/07/20 03/07/20 10:51 10:59 WBC RBC Hgb Hct MCV MCH MCHC RDW Std Deviation RDW Coeff of Elvira Plt Count MPV Immature Gran % (Auto) Neut % (Auto) Lymph % (Auto) [place] % (Auto) Eos % (Auto) Baso % (Auto) Neut # (Auto) Lymph # (Auto) [place] # (Auto) Eos # (Auto) Baso # (Auto) Immature Gran # (Auto) Absolute Nucleated RBC Nucleated RBC % (auto) Polychromasia Sodium Potassium Chloride Carbon Dioxide Anion Gap BUN Creatinine Est Cr Clr Drug Dosing Est GFR ( Amer) Est GFR (Non-Af Amer) BUN/Creatinine Ratio Glucose POC Glucose 135 H Calcium Phosphorus Magnesium Total Bilirubin Direct Bilirubin AST ALT Alkaline Phosphatase Total Creatine Kinase Total Protein Albumin Random Vancomycin Pending Blood Type Antibody Screen Antibody Identification Antibody ID Comment Direct Antiglob Test BRENT (IgG-AHG) BRENT, Polyspecific BRENT C3b, C3d 5 Min Crossmatch Medications Administered Current Inpatient Medications Acyclovir (Acyclovir 400 Mg Tab) 400 mg PO BID MIRLANDE Stop: 11/23/20 08:59 Last Admin: 03/07/20 07:48 Dose: 400 mg Documented by: Albuterol (Albut/Ipratrop 3mg/0.5mg Neb 3 Ml Vial) 3 ml NEB Q4R MIRLANDE Stop: 04/03/20 14:59 Last Admin: 03/07/20 11:07 Dose: 3 ml Documented by: Aspirin (Aspirin 81 Mg Ectab) 81 mg PO QAM MIRLANDE Stop: 03/31/20 08:59 Last Admin: 03/03/20 07:45 Dose: 81 mg Documented by: Cyanocobalamin (Cyanocobalamin 500 Mcg Tablet (Vitamin B-12)) 1,000 mcg PO QAM REPLACED BY [facility] Stop: 03/31/20 08:59 Last Admin: 03/07/20 07:49 Dose: 1,000 mcg Documented by: Dextrose (Dextrose 50% 50 Ml Syringe) 25 - 50 ml IV UD PRN; Protocol PRN Reason: Hypoglycemia Protocol Stop: 03/31/20 00:29 Docusate Sodium (Docusate Sodium 100 Mg Cap) 100 mg PO DAILY PRN PRN Reason: Constipation Stop: 03/31/20 00:29 Fluticasone Propionate (Fluticasone Propionate Na Spr 16 Gm Btl) 2 sprays NA DAILY MIRLANDE Stop: 03/31/20 08:59 Last Admin: 03/07/20 07:49 Dose: 2 sprays Documented by: Gabapentin (Gabapentin 100 Mg Cap) 200 mg PO TID MIRLANDE Stop: 03/31/20 08:59 Last Admin: 03/02/20 08:30 Dose: 200 mg Documented by: Glucagon (Glucagon For Inj 1 Mg Vial) 1 mg SQ UD PRN; Protocol PRN Reason: Hypoglycemia Protocol Stop: 03/31/20 00:29 Glucose (Glucose 10 Tabs/Tube) 4 - 8 tabs PO UD PRN; Protocol PRN Reason: Hypoglycemia Protocol Stop: 03/31/20 00:29 Glucose (Glucose 40% Gel 15 Gm Tube) 15 - 30 gm PO UD PRN; Protocol PRN Reason: Hypoglycemia Protocol Stop: 03/31/20 00:29 Guaifenesin (Guaifenesin 600 Mg Tabcr) 1,200 mg PO Q12 MIRLANDE Stop: 04/01/20 20:59 Last Admin: 03/07/20 07:49 Dose: 1,200 mg Documented by: Heparin Sodium (Porcine) (Heparin 100 Unit/Ml 5ml Flush) 5 ml FLUSH PRN PRN PRN Reason: Flush Stop: 03/31/20 00:20 Heparin Sodium (Porcine) (Heparin Sod 5,000 Unit/0.5 Ml Vial) 7,500 units SQ Q8 MIRLANDE Stop: 03/31/20 05:59 Last Admin: 03/02/20 06:23 Dose: 7,500 units Documented by: Piperacillin Sod/Tazobactam (Sod 3.375 gm/ Dextrose) 115 mls @ 28.75 mls/hr IV Q8H REPLACED BY [facility]; Protocol Stop: 03/15/20 13:59 Last Admin: 03/07/20 09:19 Dose: 28.8 mls/hr Documented by: Azithromycin 500 mg/ Dextrose 255 mls @ 127.5 mls/hr IV Q24H REPLACED BY [facility] Stop: 03/15/20 13:44 Last Infusion: 03/06/20 15:02 Dose: Infused Documented by: Sodium Chloride (Nss) 250 mls @ 15 mls/hr IV .[id number] PRN PRN Reason: For Transfusion Stop: 03/07/20 11:32 Vancomycin HCl 1 ml/ Syringe 1 mls @ 4 mls/min INTC Q24H REPLACED BY [facility]; Protocol Stop: 04/06/20 10:44 Insulin Aspart (Insulin Aspart 100 Units/Ml 3 Ml Pen) 0 units SC ACHS REPLACED BY [facility] Stop: 03/31/20 00:59 Last Admin: 03/07/20 07:57 Dose: Not Given Documented by: Levalbuterol HCl (Levalbuterol Hcl 0.63 Mg/3 Ml Neb) 0.63 mg NEB Q6R PRN PRN Reason: wheezing or SOB Stop: 04/01/20 12:59 Metoprolol Tartrate (Metoprolol Tartrate 1 Mg/Ml Vial) 5 mg IV Q4H PRN PRN Reason: Tachycardia Stop: 04/05/20 07:31 Last Admin: 03/06/20 07:56 Dose: 5 mg Documented by: Metoprolol Tartrate (Metoprolol Tartrate 50 Mg Tab) 50 mg PO Q6H MIRLANDE Stop: 04/05/20 07:59 Last Admin: 03/07/20 07:48 Dose: 50 mg Documented by: Miscellaneous (Carbohydrates For Hypoglycemia ) 15 - 30 gm PO UD PRN PRN Reason: Hypoglycemia Protocol Stop: 03/31/20 00:29 Miscellaneous Information (Piperacill/Tazobac Consult Active) 1 ea N/A UD PRN PRN Reason: Consult Stop: 03/15/20 13:59 Miscellaneous Information (Vancomycin Consult Active) 1 ea N/A UD PRN PRN Reason: Consult Stop: 04/06/20 10:38 Pantoprazole Sodium (Pantoprazole 40 Mg Tab) 40 mg PO BID REPLACED BY [facility] Stop: 03/31/20 08:59 Last Admin: 03/07/20 07:49 Dose: 40 mg Documented by: Sodium Chloride (Sodium Chlor 7% 4 Ml Neb) 4 ml NEB BIDR MIRLANDE Stop: 04/03/20 18:59 Last Admin: 03/07/20 07:09 Dose: 4 ml Documented by: PG Care Time/CCT Total # of Minutes Spent Total Time Spent with Patient: Total time spent is greater than 50% in coordination of care (as documented) at patient's floor/unit and/or counseling patient: Coding Level of Care Code 51551 Subseq Hosp Care Lvl 3 Diagnoses Coagulase negative Staphylococcus bacteremia R78.81; B95.7 Sepsis A41.9; R65.20; G93.40 Sepsis acute organ dysfunction status: with acute organ dysfunction Sepsis type: sepsis due to unspecified organism Severe sepsis acute organ dysfunction type: encephalopathy Severe sepsis shock status: without septic shock Anemia D64.9 Pneumonia J18.9 Pneumonia type: due to unspecified organism Atrial fibrillation with rapid ventricular response I48.91 CHLOÉ (acute kidney injury) N17.9 Rhabdomyolysis M62.82 Rhabdomyolysis type: non-traumatic Acute respiratory failure with hypoxia J96.01 Elevated troponin R77.8 Abnormal liver enzymes R74.8 Multiple myeloma in remission C90.01 Hypokalemia E87.6 Hypophosphatemia E83.39 CKD (chronic kidney disease) N18.9 HTN (hypertension) I10 Fall W19.XXXA Pancytopenia D61.818 Prediabetes R73.03 Neuropathy G62.9 Hypoalbuminemia E88.09 Paresthesia of left arm R20.2 GERD (gastroesophageal reflux disease) K21.9 DVT prophylaxis Z29.9 (1) Rhabdomyolysis Rhabdomyolysis type: non-traumatic Qualified Code(s): M62.82 - Rhabdomyolysis (2) Sepsis Sepsis acute organ dysfunction status: with acute organ dysfunction Sepsis type: sepsis due to unspecified organism Severe sepsis acute organ dysfunction type: encephalopathy Severe sepsis shock status: without septic shock Qualified Code(s): A41.9 - Sepsis, unspecified organism; R65.20 - Severe sepsis without septic shock; G93.40 - Encephalopathy, unspecified (3) Pneumonia Pneumonia type: due to unspecified organism
--- NOTE | 2020-03-07 11:57 | Nephrology Progress Note ---
Date of Service March 07, 2020 Assessment & Plan (1) Acute kidney injury: Mr. Collins was admitted with a fall at home, CHLOÉ with rhabdomyolysis, proteinuria, hypoalbuminemia with h/o MM. Cr was 2.4 on admission with b/l cr 1.5 to 1.7. CPK was >[id number]. Underlying CKD and high grade proteinuria secondary to multiple myeloma. Transferred to ICU for hemodynamically instability with AFib and RVR, now on IV amiodarone, no anticoagulation because of severe thrombocytopenia. CHLOÉ with rhabdomyolysis, hypoalbuminemia and intravascular volume depletion with 3rd spacing with history of nephrotic syndrome secondary to multiple myeloma. Renal function stable, decent UO. --overall stable. --monitor electrolyte, renal function daily and intake and output --hopefully renal function will start to improve as overall clinically doing better Will follow (2) Fall: (3) Pancytopenia: (4) Rhabdomyolysis: Admission and Anticipated Discharge Date Admission Date: February 29, 2020 Herbert Benjamin was seen and evaluated in ICU this morning. Awake, alert, BP fair, Decent UO, net negative >1.2 L. Creatinine staying around 3, metabolic acidosis and hypokalemia improved.. Review of Systems Review of Systems: All systems reviewed & are unremarkable except as noted in HPI & below Physical Exam Constitutional: well developed and well nourished; no acute distress Respiratory: normal respiratory effort, lungs clear to auscultation Cardiovascular: RRR, no murmur, no edema Neurologic: moves all extremities and awake; not confused Psychiatric: A+Ox3, euthymic affect Results & Data ([facility]) Vital Signs (Past 12 Hours) Vital Signs Temp Pulse Pulse Pulse Resp BP Pulse Ox 03/07/20 11:11 37.9 C H 104 H 25 H 153/95 H 92 03/07/20 11:08 100 H 24 93 03/07/20 11:00 37.9 C H 103 H 28 H 91 03/07/20 10:10 37.8 C H 97 H 22 159/93 H 91 03/07/20 10:00 37.8 C H 94 H 24 91 03/07/20 09:11 37.7 C H 105 H 23 91 03/07/20 09:10 37.7 C H 102 H 27 H 175/87 H 91 03/07/20 09:00 37.7 C H 96 H 24 92 03/07/20 07:55 37.6 C H 97 H 23 161/102 H 96 03/07/20 07:25 37.7 C H 90 21 167/94 H 100 03/07/20 07:10 82 25 H 97 03/07/20 04:31 37.9 C H 94 H 24 152/78 H 96 03/07/20 04:25 37.9 C H 91 H 23 152/78 H 95 03/07/20 04:15 37.9 C H 88 19 95 03/07/20 04:09 37.9 C H 94 H 22 177/84 H 96 03/07/20 04:00 37.9 C H 90 21 95 03/07/20 03:55 37.9 C H 91 H 24 162/85 H 99 03/07/20 03:45 38.0 C H 89 36 H 99 03/07/20 03:41 94 H 28 H 97 03/07/20 03:39 38.0 C H 88 23 158/87 H 97 03/07/20 03:30 38.0 C H 92 H 31 H 97 03/07/20 03:24 38.0 C H 96 H 28 H 172/84 H 97 03/07/20 03:15 38.0 C H 92 H 24 98 03/07/20 03:09 38.0 C H 97 H 30 H 171/80 H 97 03/07/20 03:00 38.0 C H 97 H 26 H 97 03/07/20 02:54 38.0 C H 99 H 31 H 158/79 H 97 03/07/20 02:45 38.1 C H 97 H 27 H 98 03/07/20 02:39 38.1 C H 96 H 29 H 158/81 H 97 03/07/20 02:30 38.1 C H 100 H 28 H 96 03/07/20 02:24 38.1 C H 99 H 32 H 160/81 H 97 03/07/20 02:22 38.1 C H 98 H 28 H 138/90 97 03/07/20 02:15 38.1 C H 103 H 19 96 03/07/20 02:10 38.1 C H 101 H 21 138/90 97 03/07/20 02:00 38.2 C H 99 H 29 H 97 03/07/20 01:54 38.2 C H 96 H 31 H 160/83 H 97 03/07/20 01:45 38.2 C H 100 H 29 H 97 03/07/20 01:41 38.2 C H 104 H 18 166/81 H 96 03/07/20 01:30 38.2 C H 96 H 24 98 03/07/20 01:24 38.2 C H 96 H 28 H 146/79 H 97 03/07/20 01:15 38.2 C H 97 H 26 H 96 03/07/20 01:09 38.2 C H 101 H 28 H 157/74 H 97 03/07/20 01:00 38.2 C H 101 H 42 H 96 03/07/20 00:54 38.2 C H 101 H 25 H 166/73 H 96 03/07/20 00:45 38.3 C H 101 H 20 97 03/07/20 00:39 38.3 C H 98 H 29 H 156/79 H 95 03/07/20 00:30 38.3 C H 103 H 19 97 03/07/20 00:24 38.3 C H 99 H 26 H 158/80 H 97 03/07/20 00:15 38.3 C H 99 H 22 169/71 H 97 03/07/20 00:00 38.3 C H 97 H 28 H 97 PG Care Time/CCT Total # of Minutes Spent Total Time Spent with Patient: Total time spent is greater than 50% in coordination of care (as documented) at patient's floor/unit and/or counseling patient: Coding Level of Care Code 14624 Subseq Hosp Care Lvl 3 Diagnoses Acute kidney injury N17.9 Fall W19.XXXA Pancytopenia D61.818 Rhabdomyolysis M62.82 Rhabdomyolysis type: non-traumatic (1) Rhabdomyolysis Rhabdomyolysis type: non-traumatic Qualified Code(s): M62.82 - Rhabdomyolysis
[2020-03-07] MEDS: AZITHROMYCIN 500 MG in DEXTROSE 5% 250 ML IV SCH (12:52)
[2020-03-07] MEDS ORDERED: VANCOMYCIN HCL 750 MG in SODIUM CHLORIDE 0.9% 250 ML IV ONE (13:00)
[2020-03-07] MEDS ORDERED: CEFTAROLINE FOSAMIL ACETATE 200 MG in SODIUM CHLORIDE 0.9% 250 ML IV SCH (16:00)
[2020-03-07] MEDS: CEFTAROLINE FOSAMIL ACETATE 400 MG in SODIUM CHLORIDE 0.9% 250 ML IV SCH (16:13)
--- NOTE | 2020-03-07 22:02 | Electrocardiogram Report ---
Test Reason : Blood Pressure : / mmHG Vent. Rate : 100 BPM Atrial Rate : 100 BPM P-R Int : 134 ms QRS Dur : 082 ms QT Int : 308 ms P-R-T Axes : 036 046 046 degrees QTc Int : 397 ms Normal sinus rhythm Nonspecific T wave abnormality Abnormal ECG When compared with ECG of 06-MAR-2020 07:58, Premature ventricular complexes are no longer Present Premature atrial complexes are no longer Present Nonspecific T wave abnormality, improved in Inferior leads Confirmed by Tam Munoz ([id number]) on 03/07/2020 10:02:16 PM Referred By: REFERRED SELF Confirmed By:Tam Munoz
[2020-03-08] MEDS: METOPROLOL TARTRATE 50 MG TAB PO SCH ×4 (02:33→20:16)
[2020-03-08] MEDS: ALBUT/IPRATROP 3MG/0.5MG NEB 3 ML VIAL NEB SCH ×3 (03:20→10:42)
[2020-03-08] MEDS: CEFTAROLINE FOSAMIL ACETATE 400 MG in SODIUM CHLORIDE 0.9% 250 ML IV SCH ×2 (04:45→16:03)
[2020-03-08] MEDS: METOPROLOL TARTRATE 1 MG/ML VIAL IV PRN ×2 (04:45→08:59)
[2020-03-08] MEDS: SODIUM CHLOR 7% 4 ML NEB NEB SCH ×2 (07:19→19:16)
[2020-03-08] MEDS: INSULIN ASPART 100 UNITS/ML 3 ML PEN SC SCH ×4 (08:33→22:43)
[2020-03-08] MEDS: guaiFENesin 600 MG TABCR PO SCH ×2 (08:36→20:16)
[2020-03-08] MEDS: CYANOCOBALAMIN 500 MCG TABLET (VITAMIN B-12) PO SCH (08:37)
[2020-03-08] MEDS: ACYCLOVIR 400 MG TAB PO SCH ×2 (08:37→20:16)
[2020-03-08] MEDS: PANTOprazole 40 MG TAB PO SCH ×2 (08:37→20:16)
[2020-03-08] MEDS ORDERED: dilTIAZem HCl 5 MG/ML 5 ML VIAL IV STA (09:19)
[2020-03-08 09:28] LABS: Mean Corpuscular Hgb Conc 32.7 g/dL (32-36); Nucleated RBC # (auto) 0.07 K/uL (0-0); Nucleated RBC % (auto) 2.9 %
[2020-03-08 09:47] LABS: Hematocrit (blood only) 29.7 % (42-52); Hemoglobin 9.7 g/dL (14.0-18.0); Mean Corpuscular Hemoglobin 33.2 pg (25-34); Mean Corpuscular Volume 101.7 fL (80-100); RDW Coefficient of Variation 18.1 % (11.5-14.5); RDW Standard Deviation 67.7 fL (36.4-46.3); Red Blood Count 2.92 M/uL (4.7-6.1); White Blood Count 2.46 K/uL (4.8-10.8)
[2020-03-08 10:02] LABS: Basophils # (auto) 0.01 K/uL (0-0.2); Basophils % (auto) 0.4 %; Immature Granulocytes # (auto) 0.02 K/uL (0.00-0.02); Immature Granulocytes % (auto) 0.8 %; Lymphocytes # (auto) 0.38 K/uL (1.2-3.4); Lymphocytes % (auto) 15.4 %; Monocytes % (auto) 4.1 %; Neutrophils # (auto) 1.95 K/uL (1.4-6.5); Neutrophils % (auto) 79.3 %; Platelet Count 37 K/uL (130-400); Rouleaux 1+
[2020-03-08 10:23] LABS: Albumin Level 1.6 gm/dl (3.4-5.0); BUN Creatinine Ratio 7.9 (10-20); Blood Urea Nitrogen 23 mg/dl (7-18); Calcium 8.1 mg/dl (8.5-10.1); Carbon Dioxide 24 mmol/L (21-32); Chloride 112 mmol/L (98-107); Est GFR (African American) 25.7; Est GFR (Non-African American) 22.2; Glucose 160 mg/dl (70-99); Phosphorus 3.1 mg/dl (2.5-4.9); Sodium 144 mmol/L (136-145)
[2020-03-08] MEDS: FLUTICASONE PROPIONATE NA SPR 16 GM BTL SCH (11:57)
[2020-03-08] MEDS: AZITHROMYCIN 500 MG in DEXTROSE 5% 250 ML IV SCH (12:05)
[2020-03-08] MEDS ORDERED: ALBUT/IPRATROP 3MG/0.5MG NEB 3 ML VIAL NEB PRN (13:04)
--- NOTE | 2020-03-08 13:19 | Nephrology Progress Note ---
Date of Service March 08, 2020 Assessment & Plan (1) Acute kidney injury: CHLOÉ due to rhabdomyolysis and possible ATN. BP acceptable. Total body water high but intravascularly dry. Hypoalbuminemia. No need for additional IVF at this time. Will monitor I/O's and strive for an even fluid balance. Encourage oral protein intake. HCTZ has been held. CHLOÉ with rhabdomyolysis, hypoalbuminemia and intravascular volume depletion with 3rd spacing with history of nephrotic syndrome secondary to multiple myeloma. Medications appropriately dosed for kidney function. 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 s/p 2 u PRBC earlier during admission. (3) Rhabdomyolysis: Last CK remained elevated but improving. Will repeat in the AM. Urine output is acceptable. Continue to document I/O's. (4) CKD (chronic kidney disease): CKD III A3 related to history of multiple myeloma. Baseline creatinine 1.5-1.7 mg/dL. Admission and Anticipated Discharge Date Admission Date: February 29, 2020 Subjective No acute events overnight. Afebrile. Fatigue persists. Denies significant dyspnea. Appetite decreased. Voiding large volume of urine. No chest pain or palpitations. Review of Systems Constitutional: + fatigue and + weakness Eyes: no problem reported Ear, Nose, Mouth, Throat: no problem reported Respiratory: no cough, no chest congestion and no dyspnea Cardiovascular: no problem reported Gastrointestinal: no problem reported Musculoskeletal: no problem reported Integumentary: no problem reported Neurologic: no problem reported Psychiatric: no problem reported Endocrine: no problem reported Hematologic / Lymphatic: no problem reported Physical Exam Constitutional: well developed and + obese; no acute distress Eyes: + anicteric sclerae; no corneal abnormality ENMT: Mouth: no oral mucosal abnormality and oral mucous membranes not dry Neck: normal visual inspection, trachea midline and + thick neck Respiratory: + tachypneic; no respiratory distress Auscultation: + diminished lung sounds Cardiovascular: Rate/Rhythm: regular rate Heart Sounds: normal S1 and normal S2 Extremities: + edema Gastrointestinal (Abdomen): Inspection/Auscultation: + abdomen distended Percussion/Palpation: abdomen nontender Musculoskeletal: Extremities: no cyanosis and no clubbing Skin: normal turgor; no lesions Neurologic: Motor/Sensory: no tremor and no asterixis Psychiatric: Orientation: alert and oriented x 3 Results & Data ([facility]) Vital Signs (Past 12 Hours) Vital Signs Temp Pulse Pulse Resp BP BP BP 03/08/20 12:24 37.3 C 100 H 22 152/83 H 03/08/20 10:44 102 H 18 03/08/20 10:37 96 H 03/08/20 08:59 167 H 152/85 H 03/08/20 08:00 36.8 C 96 H 24 170/79 H 03/08/20 07:20 96 H 22 03/08/20 05:50 164/85 H 03/08/20 04:45 98 H 178/80 H 03/08/20 04:26 37.2 C 98 H 18 178/80 H 03/08/20 03:22 101 H 26 H 03/08/20 02:34 36.8 C Pulse Ox 03/08/20 12:24 98 03/08/20 10:44 98 03/08/20 10:37 03/08/20 08:59 03/08/20 08:00 100 03/08/20 07:20 95 03/08/20 05:50 03/08/20 04:45 03/08/20 04:26 95 03/08/20 03:22 96 03/08/20 02:34 PG Care Time/CCT Total # of Minutes Spent Total Time Spent with Patient: Total time spent is greater than 50% in coordination of care (as documented) at patient's floor/unit and/or counseling patient: Coding Level of Care Code 82800 Subseq Hosp Care Lvl 3 Diagnoses Acute kidney injury N17.9 Pancytopenia D61.818 Rhabdomyolysis M62.82 Rhabdomyolysis type: non-traumatic CKD (chronic kidney disease) N18.9 (1) Rhabdomyolysis Rhabdomyolysis type: non-traumatic Qualified Code(s): M62.82 - Rhabdomyolysis
--- NOTE | 2020-03-08 16:36 | Hospitalist Progress Note ---
Date of Service March 08, 2020 Assessment & Plan (1) Coagulase negative Staphylococcus bacteremia: 3 out of 4 cultures growing coag negative staph, resistant to oxacillin start on Vancomycin 03/05 continue Zosyn IV repeat blood cultures drawn, 03/04, no growth thus far at four days no fever today, first time all week he has had a 24 hour period without a fever may need port removed no septic clots on venous US might need repeat echocardiogram to firmly ruler out vegetations, initial echo showed no vegetations if cultures from 03/04 do grow bacteria then plan for port removal, SKIP (2) Sepsis: Severe sepsis This patient is a 64yo C male found down at home x24 hours, with acute metabolic encephalopathy, lactic acidosis. Febrile with temperature of 107.8 /tachycardic/tachypneic on arrival. Found with RUPINDER PNA on chest x-ray. Procal elevated at 2.27. Flu negative, Covid negative MRSA swab negative Immunocompromised from multiple myeloma with port in place Blood cultures: 02/28 with coag negative staph, 03/01 with coag negative staph, repeat cultures 03/04 no growth UA with seemingly contaminated sample, urine culture no growth Procalcitonin significantly elevated With lactic acidosis-lactate elevated at 3.6 on admission and then down to 1.9 no fever today!! He is not neutropenic but he is leukopenic urine legionella positive, continue Zithromax 500mg daily with close attention to QTc continue Zosyn and Vancomycin no fungal coverage needed poor prognosis at this time, he is slowly getting better but overall snf prognosis poor with multiple myeloma, 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 (3) Anemia: macrocytic, down to 6.0 03/06 this is due to marrow failure, suppression from both myeloma and chemotherapy appreciate hematology consultation transfused 2 units 03/06, Hb up above 9 today (4) Pneumonia: Chest x-ray with RUPINDER socked in PNA-the source of his sepsis, likely a strep pneumonia however, urine legionella positive continue Zithromax 500mg daily x 7 days continue Zosyn, add Vancomycin bronchoscopy 03/05, lavage with cultures taken continue flutter valve breathing is better, down to room air for two days (5) Atrial fibrillation with rapid ventricular response: Paroxysmal atrial fibrillation with heart rates at times to the 190s converted to sinus rhythm, sinus tachycardia on amiodarone change to PO amiodarone 03/05 had some brief RVR this morning, resolved with Diltiazem 10mg IV push continue metoprolol 50mg QID cardiology following [id number] score is 1 -Appreciate cardiology consultation-recommends against anticoagulation at this time given higher risk for bleeding given multiple myeloma, anemia and worsening thrombocytopenia echo was largely normal (6) CHLOÉ (acute kidney injury): With creatinine elevated at 2.4 on admission and initially improved, but then peaked at 3.07 Cr is 2.9 again today continue to monitor, no role for diuretics today he continues to self diurese Urinalysis on admission with granular casts,'s most likely secondary to ATN from severe sepsis He has decreased effective arterial volume secondary to hypoalbuminemia, developing anasarca from copious IV fluid administration for rhabdomyolysis Also with nonanion gap metabolic acidosis, resolved He is making urine without Bumex Appreciate nephrology consultation- want even or negative fluid balance next few days Follow CK for rhabdomyolysis, trending down (7) Rhabdomyolysis: CK >51292 on arrival, secondary to prolonged down time. CK increased after admission to 24,000 but is now decreased to 1500 after copious IV fluids were given - stopped fluids 03/02 -Azar in place, closely monitor UOP -Follow serial CK -Monitor renal function and electrolytes and replace as needed -Appreciate nephrology consultation (8) Acute respiratory failure with hypoxia: Requiring 3 L nasal cannula and saturations at 99% Secondary to pneumonia and sepsis easier breathing past two days, on room air pulmonary following (9) Elevated troponin: Patient denies CP, palpitations. No EKG evidence of ischemia. With acute kidney injury and rhabdomyolysis as well as rapid atrial fibrillation all contri buting to myocardial demand ischemia. Did not present with acute coronary syndrome -Troponin peaked at 1.1 and back down again. Appreciate cardiology consultation Echocardiogram without wall motion abnormalities and with preserved EF -Continue ASA 81mg po daily but would hold if platelets less than 50 -Continue home metoprolol (10) Abnormal liver enzymes: Elevated LFTs most likely secondary to sepsis and rhabdomyolysis CT abdomen/pelvis with mild hepatic steatosis, normal gallbladder and pancreas. -Also now on amiodarone which is most likely a short-term solution (11) Multiple myeloma in remission: Patient receiving chemotherapy with Darzalex, last dose was 01/30/2020. Follows with Dr. Katlyn at the cancer [facility] -LDH is quite elevated at 1000 and Uric acid normal, do not suspect tumor lysis syndrome Continue acyclovir for prophylaxis Follow CBC With multiple lytic bone lesions diffusely on imaging (12) Hypokalemia: Follow BMP and magnesium (13) Hypophosphatemia: Severely low-replaced and resolved Follow phosphorus level (14) CKD (chronic kidney disease): Baseline creatinine is around 1.4-1.7 With CHLOÉ as above -Avoid nephrotoxins -renally dose meds when appropriate -follow BMP (15) HTN (hypertension): Blood pressures are on the low side when he has rapid atrial fibrillation, but now improved after spontaneous conversion to sinus rhythm -Continue holding home HCTZ -Continue metoprolol with hold parameters (16) Fall: Likely secondary to weakness from pneumonia and sepsis CT of the cervical spine, head CT, chest/abdomen/pelvis CT without fractures or acute findings other than PNA (17) Pancytopenia: Secondary to multiple myeloma and chemotherapy as well as sepsis, possible DIC? Follow CBC in the morning Transfuse as needed (18) Prediabetes: Hemoglobin A1c elevated at 6.4% Follow Accu-Cheks NovoLog sliding scale insulin (19) Neuropathy: -We will now hold home gabapentin, doxepin while critically ill in the ICU Thought to be secondary to chemotherapy (20) Hypoalbuminemia: Albumin severely low at 1.5, likely secondary to cancer, poor nutrition, and sepsis Follow levels Third spacing (21) Paresthesia of left arm: As above, secondary to significant edema from rhabdomyolysis Watch for development of compartment syndrome Diuresing We will elevate arm on pillow (22) GERD (gastroesophageal reflux disease): Continue PPI (23) DVT prophylaxis: Heparin SQ was held by health education aide due to worsening thrombocytopenia Disposition-transfer to PCU today, PT/OT Full code Admission and Anticipated Discharge Date Admission Date: February 29, 2020 Subjective patient continues to breathe well on room air no fever for 24 hours, this is the first time in a week he has not had a fever, possible sign that he is recovering went into RVR this morning, resolved after Lopressor 5mg IV and Diltiazem 10mg IV he had no symptoms, HR in the 160's reviewed labs, WBC 2k, Hb 9.7, plts 37 CR 2.9, potassium and magnesium did not come back he is still not eating well, he is drinking he is making a lot of urine via azar, several liters Review of Systems Review of Systems: All systems reviewed & are unremarkable except as noted in Subjective Physical Exam Constitutional: well developed, + ill appearing and + edematous; no acute distress Neck: trachea midline, no thyromegaly + thick neck Respiratory: normal respiratory effort, lungs clear to auscultation + cough and + tachypneic; no respiratory distress Auscultation: no crackles, no rales and no wheezes Cardiovascular: Rate/Rhythm: + tachycardic and + irregularly irregular Heart Sounds: normal S1 and normal S2; no murmur Vessels: no JVD Extremities: + edema (diffuse) Gastrointestinal (Abdomen): normal bowel sounds, soft, nontender, no hepatosplenomegaly Musculoskeletal: no cyanosis or clubbing, extremities motor strength 5/5 Skin: no rashes, warm and dry (blistering left forearm) Neurologic: patellar DTR's 2+ bilat, sensation intact and PERRL, EOMI, accommodation nl, no face palsy, no dysarthria Psychiatric: Orientation: alert and oriented x 3 Affect: + flat affect Lymphatic: no cervical or axillary lymphadenopathy Results & Data Results & Data ([facility]) Vital Signs (Past 12 Hours) Vital Signs Temp Pulse Pulse Resp BP BP BP 03/08/20 15:20 36.7 C 89 22 172/100 H 03/08/20 12:24 37.3 C 100 H 22 152/83 H 03/08/20 10:44 102 H 18 03/08/20 10:37 96 H 03/08/20 08:59 167 H 152/85 H 03/08/20 08:00 36.8 C 96 H 24 170/79 H 03/08/20 07:20 96 H 22 03/08/20 05:50 164/85 H 03/08/20 04:45 98 H 178/80 H Pulse Ox 03/08/20 15:20 96 03/08/20 12:24 98 03/08/20 10:44 98 03/08/20 10:37 03/08/20 08:59 03/08/20 08:00 100 03/08/20 07:20 95 03/08/20 05:50 03/08/20 04:45 Laboratory Results Laboratory Results - last 24 hr 03/07/20 03/07/2003/08/20 16:43 19:59 07:22 WBC RBC Hgb Hct MCV MCH MCHC RDW Std Deviation RDW Coeff of Elvira Plt Count Immature Gran % (Auto) Neut % (Auto) Lymph % (Auto) [place] % (Auto) Eos % (Auto) Baso % (Auto) Neut # (Auto) Lymph # (Auto) [place] # (Auto) Eos # (Auto) Baso # (Auto) Immature Gran # (Auto) Absolute Nucleated RBC Nucleated RBC % (auto) Rouleaux Sodium Potassium Chloride Carbon Dioxide Anion Gap BUN Creatinine Est Cr Clr Drug Dosing Est GFR ( Amer) Est GFR (Non-Af Amer) BUN/Creatinine Ratio Glucose POC Glucose 145 H 120 H 132 H Calcium Phosphorus Magnesium Albumin 03/08/20 03/08/20 03/08/20 09:09 09:09 11:17 WBC 2.46 L RBC 2.92 L Hgb 9.7 L Hct 29.7 L MCV 101.7 H MCH 33.2 MCHC 32.7 RDW Std Deviation 67.7 H RDW Coeff of Elvira 18.1 H Plt Count 37 L Immature Gran % (Auto) 0.8 Neut % (Auto) 79.3 Lymph % (Auto) 15.4 [place] % (Auto) 4.1 Eos % (Auto) 0.0 Baso % (Auto) 0.4 Neut # (Auto) 1.95 Lymph # (Auto) 0.38 L [place] # (Auto) 0.10 L Eos # (Auto) 0.00 Baso # (Auto) 0.01 Immature Gran # (Auto) 0.02 Absolute Nucleated RBC 0.07 H Nucleated RBC % (auto) 2.9 Rouleaux 1+ Sodium 144 Potassium TNP Chloride 112 H Carbon Dioxide 24 Anion Gap 8.0 BUN 23 H Creatinine 2.90 H Est Cr Clr Drug Dosing 32.0 Est GFR ( Amer) 25.7 Est GFR (Non-Af Amer) 22.2 BUN/Creatinine Ratio 7.9 L Glucose 160 H POC Glucose 172 H Calcium 8.1 L Phosphorus 3.1 Magnesium TNP Albumin 1.6 L 03/08/20 16:13 WBC RBC Hgb Hct MCV MCH MCHC RDW Std Deviation RDW Coeff of Elvira Plt Count Immature Gran % (Auto) Neut % (Auto) Lymph % (Auto) [place] % (Auto) Eos % (Auto) Baso % (Auto) Neut # (Auto) Lymph # (Auto) [place] # (Auto) Eos # (Auto) Baso # (Auto) Immature Gran # (Auto) Absolute Nucleated RBC Nucleated RBC % (auto) Rouleaux Sodium Potassium Chloride Carbon Dioxide Anion Gap BUN Creatinine Est Cr Clr Drug Dosing Est GFR ( Amer) Est GFR (Non-Af Amer) BUN/Creatinine Ratio Glucose POC Glucose 127 H Calcium Phosphorus Magnesium Albumin Medications Administered Current Inpatient Medications Acyclovir (Acyclovir 400 Mg Tab) 400 mg PO BID [facility] Stop: 03/31/20 08:59 Last Admin: 03/08/20 08:37 Dose: 400 mg Documented by: Albuterol (Albut/Ipratrop 3mg/0.5mg Neb 3 Ml Vial) 3 ml NEB Q4R PRN PRN Reason: Shortness Of Breath Or Wheezing Stop: 04/03/20 14:59 Aspirin (Aspirin 81 Mg Ectab) 81 mg PO QAM [facility] Stop: 03/31/20 08:59 Last Admin: 03/03/20 07:45 Dose: 81 mg Documented by: Cyanocobalamin (Cyanocobalamin 500 Mcg Tablet (Vitamin B-12)) 1,000 mcg PO QAM MIRLANDE Stop: 03/31/20 08:59 Last Admin: 03/08/20 08:37 Dose: 1,000 mcg Documented by: Dextrose (Dextrose 50% 50 Ml Syringe) 25 - 50 ml IV UD PRN; Protocol PRN Reason: Hypoglycemia Protocol Stop: 03/31/20 00:29 Docusate Sodium (Docusate Sodium 100 Mg Cap) 100 mg PO DAILY PRN PRN Reason: Constipation Stop: 03/31/20 00:29 Fluticasone Propionate (Fluticasone Propionate Na Spr 16 Gm Btl) 2 sprays NA DAILY MIRLANDE Stop: 03/31/20 08:59 Last Admin: 03/08/20 11:57 Dose: Not Given Documented by: Gabapentin (Gabapentin 100 Mg Cap) 200 mg PO TID MIRLANDE Stop: 03/31/20 08:59 Last Admin: 03/02/20 08:30 Dose: 200 mg Documented by: Glucagon (Glucagon For Inj 1 Mg Vial) 1 mg SQ UD PRN; Protocol PRN Reason: Hypoglycemia Protocol Stop: 03/31/20 00:29 Glucose (Glucose 10 Tabs/Tube) 4 - 8 tabs PO UD PRN; Protocol PRN Reason: Hypoglycemia Protocol Stop: 03/31/20 00:29 Glucose (Glucose 40% Gel 15 Gm Tube) 15 - 30 gm PO UD PRN; Protocol PRN Reason: Hypoglycemia Protocol Stop: 03/31/20 00:29 Guaifenesin (Guaifenesin 600 Mg Tabcr) 1,200 mg PO Q12 MIRLANDE Stop: 04/01/20 20:59 Last Admin: 03/08/20 08:36 Dose: 1,200 mg Documented by: Heparin Sodium (Porcine) (Heparin 100 Unit/Ml 5ml Flush) 5 ml FLUSH PRN PRN PRN Reason: Flush Stop: 03/31/20 00:20 Heparin Sodium (Porcine) (Heparin Sod 5,000 Unit/0.5 Ml Vial) 7,500 units SQ Q8 MIRLANDE Stop: 03/31/20 05:59 Last Admin: 03/02/20 06:23 Dose: 7,500 units Documented by: Azithromycin 500 mg/ Dextrose 255 mls @ 127.5 mls/hr IV Q24H [facility] Stop: 03/15/20 13:44 Last Infusion: 03/08/20 14:15 Dose: Infused Documented by: Vancomycin HCl 2.1 ml/ Syringe 2.1 mls @ 504 mls/hr INTC Q24H MIRLANDE; Protocol Stop: 03/18/20 23:59 Last Admin: 03/08/20 16:08 Dose: 504 mls/hr Documented by: Ceftaroline Fosamil 400 mg/ (Sodium Chloride) 263.3333 mls @ 256.667 mls/hr IV Q12H MIRLANDE; Protocol Stop: 03/18/20 23:59 Last Admin: 03/08/20 16:03 Dose: 257 mls/hr Documented by: Insulin Aspart (Insulin Aspart 100 Units/Ml 3 Ml Pen) 0 units SC ACHS MIRLANDE Stop: 03/31/20 00:59 Last Admin: 03/08/20 12:12 Dose: 2 units Documented by: Levalbuterol HCl (Levalbuterol Hcl 0.63 Mg/3 Ml Neb) 0.63 mg NEB Q6R PRN PRN Reason: wheezing or SOB Stop: 04/01/20 12:59 Metoprolol Tartrate (Metoprolol Tartrate 1 Mg/Ml Vial) 5 mg IV Q4H PRN PRN Reason: Tachycardia Stop: 04/05/20 07:31 Last Admin: 03/08/20 08:59 Dose: 5 mg Documented by: Metoprolol Tartrate (Metoprolol Tartrate 50 Mg Tab) 50 mg PO Q6H MIRLANDE Stop: 04/05/20 07:59 Last Admin: 03/08/20 16:08 Dose: 50 mg Documented by: Miscellaneous (Carbohydrates For Hypoglycemia ) 15 - 30 gm PO UD PRN PRN Reason: Hypoglycemia Protocol Stop: 03/31/20 00:29 Pantoprazole Sodium (Pantoprazole 40 Mg Tab) 40 mg PO BID MIRLANDE Stop: 03/31/20 08:59 Last Admin: 03/08/20 08:37 Dose: 40 mg Documented by: Sodium Chloride (Sodium Chlor 7% 4 Ml Neb) 4 ml NEB BIDR [facility] Stop: 04/03/20 18:59 Last Admin: 03/08/20 07:19 Dose: 4 ml Documented by: PG Care Time/CCT Total # of Minutes Spent Total Time Spent with Patient: Total time spent is greater than 50% in coordination of care (as documented) at patient's floor/unit and/or counseling patient: Coding Level of Care Code 44328 Subseq Hosp Care Lvl 3 Diagnoses Coagulase negative Staphylococcus bacteremia R78.81; B95.7 Sepsis A41.9; R65.20; G93.40 Sepsis acute organ dysfunction status: with acute organ dysfunction Sepsis type: sepsis due to unspecified organism Severe sepsis acute organ dysfunction type: encephalopathy Severe sepsis shock status: without septic shock Anemia D64.9 Pneumonia J18.9 Pneumonia type: due to unspecified organism Atrial fibrillation with rapid ventricular response I48.91 CHLOÉ (acute kidney injury) N17.9 Rhabdomyolysis M62.82 Rhabdomyolysis type: non-traumatic Acute respiratory failure with hypoxia J96.01 Elevated troponin R77.8 Abnormal liver enzymes R74.8 Multiple myeloma in remission C90.01 Hypokalemia E87.6 Hypophosphatemia E83.39 CKD (chronic kidney disease) N18.9 HTN (hypertension) I10 Fall W19.XXXA Pancytopenia D61.818 Prediabetes R73.03 Neuropathy G62.9 Hypoalbuminemia E88.09 Paresthesia of left arm R20.2 GERD (gastroesophageal reflux disease) K21.9 DVT prophylaxis Z29.9 (1) Rhabdomyolysis Rhabdomyolysis type: non-traumatic Qualified Code(s): M62.82 - Rhabdomyolysis (2) Sepsis Sepsis acute organ dysfunction status: with acute organ dysfunction Sepsis type: sepsis due to unspecified organism Severe sepsis acute organ dysfunction type: encephalopathy Severe sepsis shock status: without septic shock Qualified Code(s): A41.9 - Sepsis, unspecified organism; R65.20 - Severe sepsis without septic shock; G93.40 - Encephalopathy, unspecified (3) Pneumonia Pneumonia type: due to unspecified organism
[2020-03-08 22:38] LABS: Aspergillus Ag, BAL Not Detected (Not Detected)
[2020-03-09] MEDS: CEFTAROLINE FOSAMIL ACETATE 400 MG in SODIUM CHLORIDE 0.9% 250 ML IV SCH ×2 (03:04→15:30)
[2020-03-09] MEDS: METOPROLOL TARTRATE 50 MG TAB PO SCH ×4 (03:04→21:09)
[2020-03-09] MEDS: SODIUM CHLOR 7% 4 ML NEB NEB SCH ×2 (07:22→20:03)
[2020-03-09] MEDS: INSULIN ASPART 100 UNITS/ML 3 ML PEN SC SCH ×4 (07:59→21:12)
[2020-03-09 08:20] LABS: Albumin Level 1.6 gm/dl (3.4-5.0); BUN Creatinine Ratio 7.6 (10-20); Calcium 8.3 mg/dl (8.5-10.1); Est GFR (African American) 26.7; Potassium 2.9 mmol/L (3.5-5.1)
[2020-03-09 08:21] LABS: Phosphorus 3.2 mg/dl (2.5-4.9)
[2020-03-09 08:23] LABS: Nucleated RBC # (auto) 0.06 K/uL (0-0)
[2020-03-09 08:39] LABS: Basophils # (auto) 0.02 K/uL (0-0.2); Basophils % (auto) 0.6 %; Eosinophils # (auto) 0.02 K/uL (0-0.5); Eosinophils % (auto) 0.6 %; Hematocrit (blood only) 30.1 % (42-52); Hemoglobin 9.8 g/dL (14.0-18.0); Immature Granulocytes # (auto) 0.02 K/uL (0.00-0.02); Immature Granulocytes % (auto) 0.6 %; Lymphocytes # (auto) 0.67 K/uL (1.2-3.4); Lymphocytes % (auto) 21.7 %; Mean Corpuscular Hemoglobin 32.8 pg (25-34); Mean Corpuscular Hgb Conc 32.6 g/dL (32-36); Mean Corpuscular Volume 100.7 fL (80-100); Monocytes # (auto) 0.16 K/uL (0.11-0.59); Monocytes % (auto) 5.2 %; Neutrophils % (auto) 71.3 %; Platelet Count 56 K/uL (130-400); RDW Coefficient of Variation 17.8 % (11.5-14.5); RDW Standard Deviation 65.4 fL (36.4-46.3); Red Blood Count 2.99 M/uL (4.7-6.1); Rouleaux 1+; White Blood Count 3.09 K/uL (4.8-10.8)
[2020-03-09] MEDS: guaiFENesin 600 MG TABCR PO SCH ×2 (08:49→21:09)
[2020-03-09] MEDS: FLUTICASONE PROPIONATE NA SPR 16 GM BTL SCH (08:51)
[2020-03-09] MEDS: CYANOCOBALAMIN 500 MCG TABLET (VITAMIN B-12) PO SCH (08:51)
[2020-03-09] MEDS: ACYCLOVIR 400 MG TAB PO SCH ×2 (08:52→21:08)
[2020-03-09] MEDS: PANTOprazole 40 MG TAB PO SCH ×2 (08:52→21:08)
--- NOTE | 2020-03-09 08:55 | Hospitalist Progress Note ---
Date of Service March 09, 2020 Assessment & Plan (1) Coagulase negative Staphylococcus bacteremia: 3 out of 4 cultures growing coag negative staph, resistant to oxacillin start on Vancomycin 03/05 continue Ceftaroline/Zithromax for pneumonia repeat blood cultures drawn, 03/04, no growth thus far at five days no fever for 48 hours will plan to keep port for now no septic clots on venous US might need repeat echocardiogram to firmly ruler out vegetations, initial echo showed no vegetations for now, keep port and no need for SKIP since cultures from 03/04 show no growth (2) Sepsis: Severe sepsis This patient is a 64yo C male found down at home x24 hours, with acute metabolic encephalopathy, lactic acidosis. Febrile with temperature of 107.8 /tachycardic/tachypneic on arrival. Found with RUPINDER PNA on chest x-ray. Procal elevated at 2.27. Flu negative, Covid negative MRSA swab negative Immunocompromised from multiple myeloma with port in place Blood cultures: 02/28 with coag negative staph, 03/01 with coag negative staph, repeat cultures 03/04 no growth With lactic acidosis-lactate elevated at 3.6 on admission and then down to 1.9 no fever for two days He is not neutropenic but he is leukopenic urine legionella positive, continue Zithromax 500mg daily with close attention to QTc will need 7 days of treatment continue Ceftaroline and Vancomycin no fungal coverage needed poor prognosis at this time, he is slowly getting better but 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, 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 will nee rehab (3) Anemia: macrocytic, down to 6.0 03/06 this is due to marrow failure, suppression from both myeloma and chemotherapy appreciate hematology consultation transfused 2 units 03/06, Hb up to 9.8 (4) Pneumonia: Chest x-ray with RUPINDER socked in PNA-the source of his sepsis, likely a strep pneumonia however, urine legionella positive continue Zithromax 500mg daily x 7 days (started 03/06, today is day 4) continue Ceftaroline and Vancomycin, need 14 days from negative culture which was 03/04 bronchoscopy 03/05, lavage with cultures taken, no growth continue flutter valve breathing is better, down to room air for three days (5) Atrial fibrillation with rapid ventricular response: Paroxysmal atrial fibrillation with heart rates at times to the 190s converted to sinus rhythm, sinus tachycardia on amiodarone continue amiodarone 200mg PO daily continue metoprolol 50mg QID, change to 100mg BID tomorrow cardiology following [id number] score is 1 -Appreciate cardiology consultation-recommends against anticoagulation at this time given higher risk for bleeding given multiple myeloma, anemia and worsening thrombocytopenia echo was largely normal (6) CHLOÉ (acute kidney injury): With creatinine elevated at 2.4 on admission and initially improved, but then peaked at 3.07 Cr down to 2.8 continue to monitor, no role for diuretics today he continues to self diurese K is low at 2.9, give 20mEq TID plus 30mEq IV today Urinalysis on admission with granular casts,'s most likely secondary to ATN from severe sepsis He has decreased effective arterial volume secondary to hypoalbuminemia, developing anasarca from copious IV fluid administration for rhabdomyolysis Also with nonanion gap metabolic acidosis, resolved He is making urine without Bumex Appreciate nephrology consultation- want even or negative fluid balance next few days Follow CK for rhabdomyolysis, trending down (7) Rhabdomyolysis: CK >42194 on arrival, secondary to prolonged down time. CK increased after admission to 24,000 but is now decreased to 1500 after copious IV fluids were given - stopped fluids 03/02 -Friedman in place, closely monitor UOP -Follow serial CK -Monitor renal function and electrolytes and replace as needed -Appreciate nephrology consultation (8) Acute respiratory failure with hypoxia: Was requiring 3 L nasal cannula and saturations at 99% Secondary to pneumonia and sepsis easier breathing past three days, on room air pulmonary following (9) Elevated troponin: Patient denies CP, palpitations. No EKG evidence of ischemia. With acute kidney injury and rhabdomyolysis as well as rapid atrial fibrillation all contributing to myocardial demand ischemia. Did not present with acute coronary syndrome -Troponin peaked at 1.1 and back down again. Appreciate cardiology consultation Echocardiogram without wall motion abnormalities and with preserved EF -Continue ASA 81mg po daily but would hold if platelets less than 50 -Continue home metoprolol (10) Abnormal liver enzymes: Elevated LFTs most likely secondary to sepsis and rhabdomyolysis CT abdomen/pelvis with mild hepatic steatosis, normal gallbladder and pancreas. -Also now on amiodarone which is most likely a short-term solution (11) Multiple myeloma in remission: Patient receiving chemotherapy with Darzalex, last dose was 01/30/2020. Follows with Dr. Potts at the [facility] -LDH is quite elevated at 1000 and Uric acid normal, do not suspect tumor lysis syndrome Continue acyclovir for prophylaxis Follow CBC With multiple lytic bone lesions diffusely on imaging (12) Hypokalemia: 2.9 today, ordered 20mEq TID and 30mEq IV (13) Hypophosphatemia: Severely low-replaced and resolved Follow phosphorus level (14) CKD (chronic kidney disease): Baseline creatinine is around 1.4-1.7 With CHLOÉ as above -Avoid nephrotoxins -renally dose meds when appropriate -follow BMP (15) HTN (hypertension): Blood pressures are on the low side when he has rapid atrial fibrillation, but now improved after spontaneous conversion to sinus rhythm -Continue holding home HCTZ -Continue metoprolol with hold parameters (16) Fall: Likely secondary to weakness from pneumonia and sepsis CT of the cervical spine, head CT, chest/abdomen/pelvis CT without fractures or acute findings other than PNA (17) Pancytopenia: Secondary to multiple myeloma and chemotherapy as well as sepsis, possible DIC? Follow CBC in the morning Transfuse as needed (18) Prediabetes: Hemoglobin A1c elevated at 6.4% Follow Accu-Cheks NovoLog sliding scale insulin (19) Neuropathy: -We will now hold home gabapentin, doxepin while critically ill in the ICU Thought to be secondary to chemotherapy (20) Hypoalbuminemia: Albumin severely low at 1.6, likely secondary to cancer, poor nutrition, and sepsis Follow levels Third spacing (21) Paresthesia of left arm: As above, secondary to significant edema from rhabdomyolysis Watch for development of compartment syndrome Diuresing We will elevate arm on pillow (22) GERD (gastroesophageal reflux disease): Continue PPI (23) DVT prophylaxis: Heparin SQ was held by provider contracting consultant due to worsening thrombocytopenia Disposition- continue PT/OT, plan for rehab, likely ready Tuesday Full code Admission and Anticipated Discharge Date Admission Date: February 29, 2020 Subjective patient is breathing better today, has a cough but no sputum coming up no fever now for two straight days reviewed labs, WBC low and platelets low, Hb is stable Cr down slightly at 2.8, making a lot of urine blood cultures still negative from 03/04 discussed with patient that he will likely need rehab when he is recovered from illness he agrees with this no chest pain, no vomiting, no diarrhea Review of Systems Review of Systems: All systems reviewed & are unremarkable except as noted in Subjective Constitutional: + fatigue and + weakness; no fever, no chills and no sweats Respiratory: + cough, + dyspnea and + dyspnea on exertion; no sputum production Cardiovascular: + edema; no chest pain, no palpitations, no lightheadedness and no syncope Gastrointestinal: no abdominal pain, no nausea, no vomiting, no constipation and no diarrhea/loose stools Physical Exam Constitutional: well developed, + ill appearing and + edematous; no acute distress Neck: trachea midline, no thyromegaly + thick neck Respiratory: normal respiratory effort, lungs clear to auscultation + cough; no respiratory distress Auscultation: no crackles, no rales and no wheezes Cardiovascular: Rate/Rhythm: regular rate and + irregularly irregular Heart Sounds: normal S1 and normal S2; no murmur Vessels: no JVD Extremities: + edema (diffuse) Gastrointestinal (Abdomen): normal bowel sounds, soft, nontender, no hepatosplenomegaly Musculoskeletal: no cyanosis or clubbing, extremities motor strength 5/5 Skin: no rashes, warm and dry (blistering left forearm) Neurologic: patellar DTR's 2+ bilat, sensation intact and PERRL, EOMI, accommo dation nl, no face palsy, no dysarthria Psychiatric: Orientation: alert and oriented x 3 Affect: + flat affect Lymphatic: no cervical or axillary lymphadenopathy Results & Data Results & Data ([facility]) Vital Signs (Past 12 Hours) Vital Signs Temp Pulse Pulse Resp BP BP Pulse Ox 03/09/20 08:31 36.9 C 86 21 139/79 96 03/09/20 08:15 89 03/09/20 07:22 88 18 98 03/09/20 03:42 36.6 C 87 16 163/83 H 95 03/08/20 23:22 36.7 C 89 20 155/91 H 99 Laboratory Results Laboratory Results - last 24 hr 03/05/20 03/08/20 03/08/20 Unknown 09:09 09:09 WBC RBC Hgb Hct MCV MCH MCHC RDW Std Deviation RDW Coeff of Elvira Plt Count 37 L Immature Gran % (Auto) 0.8 Neut % (Auto) 79.3 Lymph % (Auto) 15.4 [place] % (Auto) 4.1 Eos % (Auto) 0.0 Baso % (Auto) 0.4 Neut # (Auto) 1.95 Lymph # (Auto) 0.38 L [place] # (Auto) 0.10 L Eos # (Auto) 0.00 Baso # (Auto) 0.01 Immature Gran # (Auto) 0.02 Absolute Nucleated RBC Nucleated RBC % (auto) Rouleaux 1+ Sodium 144 Potassium TNP Chloride 112 H Carbon Dioxide 24 Anion Gap 8.0 BUN 23 H Creatinine 2.90 H Est Cr Clr Drug Dosing 32.0 Est GFR ( Amer) 25.7 Est GFR (Non-Af Amer) 22.2 BUN/Creatinine Ratio 7.9 L Glucose 160 H POC Glucose Calcium 8.1 L Phosphorus 3.1 Magnesium TNP Albumin 1.6 L BAL A.galactomannan Ag Not Detected BAL A.galactomann Index 0.34 03/08/20 03/08/20 03/08/20 11:17 16:13 20:26 WBC RBC Hgb Hct MCV MCH MCHC RDW Std Deviation RDW Coeff of Elvira Plt Count Immature Gran % (Auto) Neut % (Auto) Lymph % (Auto) [place] % (Auto) Eos % (Auto) Baso % (Auto) Neut # (Auto) Lymph # (Auto) [place] # (Auto) Eos # (Auto) Baso # (Auto) Immature Gran # (Auto) Absolute Nucleated RBC Nucleated RBC % (auto) Rouleaux Sodium Potassium Chloride Carbon Dioxide Anion Gap BUN Creatinine Est Cr Clr Drug Dosing Est GFR ( Amer) Est GFR (Non-Af Amer) BUN/Creatinine Ratio Glucose POC Glucose 172 H 127 H 114 H Calcium Phosphorus Magnesium Albumin BAL A.galactomannan Ag BAL A.galactomann Index 03/09/20 03/09/20 03/09/20 07:26 07:38 07:45 WBC 3.09 L RBC 2.99 L Hgb 9.8 L Hct 30.1 L MCV 100.7 H MCH 32.8 MCHC 32.6 RDW Std Deviation 65.4 H RDW Coeff of Elvira 17.8 H Plt Count 56 L D Immature Gran % (Auto) 0.6 Neut % (Auto) 71.3 Lymph % (Auto) 21.7 [place] % (Auto) 5.2 Eos % (Auto) 0.6 Baso % (Auto) 0.6 Neut # (Auto) 2.20 Lymph # (Auto) 0.67 L [place] # (Auto) 0.16 Eos # (Auto) 0.02 Baso # (Auto) 0.02 Immature Gran # (Auto) 0.02 Absolute Nucleated RBC 0.06 H Nucleated RBC % (auto) 2.0 Rouleaux 1+ Sodium 144 Potassium 2.9 L Chloride 112 H Carbon Dioxide 24 Anion Gap 8.0 BUN 21 H Creatinine 2.81 H Est Cr Clr Drug Dosing 33.0 Est GFR ( Amer) 26.7 Est GFR (Non-Af Amer) 23.0 BUN/Creatinine Ratio 7.6 L Glucose 111 H POC Glucose 106 H Calcium 8.3 L Phosphorus 3.2 Magnesium Albumin 1.6 L BAL A.galactomannan Ag BAL A.galactomann Index Medications Administered Current Inpatient Medications Acyclovir (Acyclovir 400 Mg Tab) 400 mg PO BID [facility] Stop: 03/31/20 08:59 Last Admin: 03/09/20 08:52 Dose: 400 mg Documented by: Albuterol (Albut/Ipratrop 3mg/0.5mg Neb 3 Ml Vial) 3 ml NEB Q4R PRN PRN Reason: Shortness Of Breath Or Wheezing Stop: 04/03/20 14:59 Aspirin (Aspirin 81 Mg Ectab) [facility] [place] Stop: 03/31/20 08:59 Last Admin: 03/03/20 07:45 Dose: 81 mg Documented by: Cyanocobalamin (Cyanocobalamin 500 Mcg Tablet (Vitamin B-12)) 1,000 mcg PO QAM [facility] Stop: 03/31/20 08:59 Last Admin: 03/09/20 08:51 Dose: 1,000 mcg Documented by: Dextrose (Dextrose 50% 50 Ml Syringe) 25 - 50 ml IV UD PRN; Protocol PRN Reason: Hypoglycemia Protocol Stop: 03/31/20 00:29 Docusate Sodium (Docusate Sodium 100 Mg Cap) 100 mg PO DAILY PRN PRN Reason: Constipation Stop: 03/31/20 00:29 Fluticasone Propionate (Fluticasone Propionate Na Spr 16 Gm Btl) 2 sprays NA DAILY [facility] Stop: 03/31/20 08:59 Last Admin: 03/09/20 08:51 Dose: 2 sprays Documented by: Gabapentin (Gabapentin 100 Mg Cap) 200 mg PO TID [facility] Stop: 03/31/20 08:59 Last Admin: 03/02/20 08:30 Dose: 200 mg Documented by: Glucagon (Glucagon For Inj 1 Mg Vial) 1 mg SQ UD PRN; Protocol PRN Reason: Hypoglycemia Protocol Stop: 03/31/20 00:29 Glucose (Glucose 10 Tabs/Tube) 4 - 8 tabs PO UD PRN; Protocol PRN Reason: Hypoglycemia Protocol Stop: 03/31/20 00:29 Glucose (Glucose 40% Gel 15 Gm Tube) 15 - 30 gm PO UD PRN; Protocol PRN Reason: Hypoglycemia Protocol Stop: 03/31/20 00:29 Guaifenesin (Guaifenesin 600 Mg Tabcr) 1,200 mg PO Q12 [facility] Stop: 04/01/20 20:59 Last Admin: 03/09/20 08:49 Dose: 1,200 mg Documented by: Heparin Sodium (Porcine) (Heparin 100 Unit/Ml 5ml Flush) 5 ml FLUSH PRN PRN PRN Reason: Flush Stop: 03/31/20 00:20 Heparin Sodium (Porcine) (Heparin Sod 5,000 Unit/0.5 Ml Vial) 7,500 units SQ Q8 [facility] Stop: 03/31/20 05:59 Last Admin: 03/02/20 06:23 Dose: 7,500 units Documented by: Azithromycin 500 mg/ Dextrose 255 mls @ 127.5 mls/hr IV Q24H [facility] Stop: 03/15/20 13:44 Last Infusion: 03/08/20 14:15 Dose: Infused Documented by: Vancomycin HCl 2.1 ml/ Syringe 2.1 mls @ 504 mls/hr INTC Q24H [facility]; Protocol Stop: 03/18/20 23:59 Last Admin: 03/08/20 16:08 Dose: 504 mls/hr Documented by: Ceftaroline Fosamil 400 mg/ (Sodium Chloride) 263.3333 mls @ 256.667 mls/hr IV Q12H [facility]; Protocol Stop: 03/18/20 23:59 Last Infusion: 03/09/20 04:29 Dose: Infused Documented by: Potassium Chloride (K Jose / Wtr) 10 meq in 100 mls @ 100 mls/hr IV Q1H [facility] Stop: 03/09/20 09:51 Insulin Aspart (Insulin Aspart 100 Units/Ml 3 Ml Pen) 0 units SC ACHS [facility] Stop: 03/31/20 00:59 Last Admin: 03/09/20 07:59 Dose: Not Given Documented by: Levalbuterol HCl (Levalbuterol Hcl 0.63 Mg/3 Ml Neb) 0.63 mg NEB Q6R PRN PRN Reason: wheezing or SOB Stop: 04/01/20 12:59 Metoprolol Tartrate (Metoprolol Tartrate 1 Mg/Ml Vial) 5 mg IV Q4H PRN PRN Reason: Tachycardia Stop: 04/05/20 07:31 Last Admin: 03/08/20 08:59 Dose: 5 mg Documented by: Metoprolol Tartrate (Metoprolol Tartrate 50 Mg Tab) 50 mg PO Q6H [facility] Stop: 04/05/20 07:59 Last Admin: 03/09/20 08:49 Dose: 50 mg Documented by: Miscellaneous (Carbohydrates For Hypoglycemia ) 15 - 30 gm PO UD PRN PRN Reason: Hypoglycemia Protocol Stop: 03/31/20 00:29 Pantoprazole Sodium (Pantoprazole 40 Mg Tab) 40 mg PO BID [facility] Stop: 03/31/20 08:59 Last Admin: 03/09/20 08:52 Dose: 40 mg Documented by: Potassium Chloride (Potassium Chloride 20 Meq Tabcr) 20 meq PO TID [facility] Stop: 04/08/20 08:59 Sodium Chloride (Sodium Chlor 7% 4 Ml Neb) 4 ml NEB BIDR [facility] Stop: 04/03/20 18:59 Last Admin: 03/09/20 07:22 Dose: 4 ml Documented by: PG Care Time/CCT Total # of Minutes Spent Total Time Spent with Patient: Total time spent is greater than 50% in coordination of care (as documented) at patient's floor/unit and/or counseling patient: Coding Level of Care Code 05542 Subseq Hosp Care Lvl 3 Diagnoses Coagulase negative Staphylococcus bacteremia R78.81; B95.7 Sepsis A41.9; R65.20; G93.40 Sepsis acute organ dysfunction status: with acute organ dysfunction Sepsis type: sepsis due to unspecified organism Severe sepsis acute organ dysfunction type: encephalopathy Severe sepsis shock status: without septic shock Anemia D64.9 Pneumonia J18.9 Pneumonia type: due to unspecified organism Atrial fibrillation with rapid ventricular response I48.91 CHLOÉ (acute kidney injury) N17.9 Rhabdomyolysis M62.82 Rhabdomyolysis type: non-traumatic Acute respiratory failure with hypoxia J96.01 Elevated troponin R77.8 Abnormal liver enzymes R74.8 Multiple myeloma in remission C90.01 Hypokalemia E87.6 Hypophosphatemia E83.39 CKD (chronic kidney disease) N18.9 HTN (hypertension) I10 Fall W19.XXXA Pancytopenia D61.818 Prediabetes R73.03 Neuropathy G62.9 Hypoalbuminemia E88.09 Paresthesia of left arm R20.2 GERD (gastroesophageal reflux disease) K21.9 DVT prophylaxis Z29.9 (1) Rhabdomyolysis Rhabdomyolysis type: non-traumatic Qualified Code(s): M62.82 - Rhabdomyolysis (2) Sepsis Sepsis acute organ dysfunction status: with acute organ dysfunction Sepsis type: sepsis due to unspecified organism Severe sepsis acute organ dysfunction type: encephalopathy Severe sepsis shock status: without septic shock Quali fied Code(s): A41.9 - Sepsis, unspecified organism; R65.20 - Severe sepsis without septic shock; G93.40 - Encephalopathy, unspecified (3) Pneumonia Pneumonia type: due to unspecified organism
[2020-03-09] MEDS: POTASSIUM CHLORIDE / WTR 10 MEQ/100 ML PLCT IV SCH ×3 (09:45→12:10)
[2020-03-09 10:19] LABS: Magnesium 1.7 mg/dl (1.8-2.4)
[2020-03-09] MEDS: POTASSIUM CHLORIDE CRTAB 20 MEQ TABCR PO SCH ×3 (11:01→21:08)
--- NOTE | 2020-03-09 11:39 | Cardiology Progress Note ---
Date of Service March 09, 2020 Assessment & Plan (1) Paroxysmal atrial fibrillation: (2) Hypokalemia: (3) Hypomagnesemia: (4) Pancytopenia: Case discussed with Dr. Link. Initiating oral amiodarone 200 mg daily (he was previously amiodarone loaded intravenously). Continue metoprolol 50 mg every 6 hours, with further adjustments based on hemodynamics/recurrent dysrhythmias. May need to taper as amiodarone is added if he develops bradycardia (less than 50 bpm). No anticoagulation short-term due to thrombocytopenia/anemia. Replenish electrolytes to decrease risk of recurrent dysrhythmia: -Potassium goal>3.5 (ideally>4) -Magnesium goal>1.8 (ideally>2) Admission and Anticipated Discharge Date Admission Date: February 29, 2020 Subjective Uneventful night. Episodes of atrial fibrillation with rapid ventricular response yesterday, but none overnight or this morning. Off IV amiodarone and on oral beta-blockers, initiating oral amiodarone as well. He denied any chest pain, dyspnea, subjective palpitations, or lightheadedness. During yesterday's episodes of atrial fibrillation with rapid ventricular response he has not noted any associated symptoms. No specific complaints at the time of my visit. Physical Exam Physical Exam: Subdued affect, no distress. Afebrile. Normotensive. Pulse 86 and regular. Respirations 21 but not obviously labored. Skin: Scattered ecchymoses (e.g. right forearm). HEENT: unremarkable. Neck: Jugular venous pulse one third of the way to the angle of the jaw at 90 degrees, no obvious carotid bruits. Lungs: Scattered rhonchi with faint expiratory wheezing. No accessory muscle use, intercostal retraction, or nasal flaring. Cardiac: Mildly reduced heart tones, no obvious murmur or gallop. Abdomen benign. Extremities: Trace pretibial edema, pulses brisk. Neurologic: Subdued affect, answers questions appropriately, grossly nonfocal. Results & Data ([facility]) Vital Signs (Past 12 Hours) Vital Signs Temp Pulse Pulse Resp BP Pulse Ox 03/09/20 08:31 98.4 F 86 21 139/79 96 03/09/20 08:15 89 03/09/20 07:22 88 18 98 03/09/20 03:42 97.9 F 87 16 163/83 H 95 Laboratory Results WBC 3.09, hemoglobin 9.8, platelet count 56,000. Normal sodium, potassium reduced at 2.9, BUN 21, creatinine 2.8 (stable). Magnesium 1.7. Albumin 1.6. Diagnostic Findings Telemetry monitoring showed sinus rhythm between 70 and 90 bpm overnight. As noted, he had episodes of atrial fibrillation with rapid ventricular response yesterday. PG Care Time/CCT Total # of Minutes Spent Total Time Spent with Patient: Total time spent is greater than 50% in coordination of care (as documented) at patient's floor/unit and/or counseling patient: Coding Level of Care Code 15991 Subseq Hosp Care Lvl 3 Diagnoses Paroxysmal atrial fibrillation I48.0 Hypokalemia E87.6 Hypomagnesemia E83.42 Pancytopenia D61.818
[2020-03-09] MEDS: AMIODARONE 200 MG TAB PO SCH (11:45)
--- NOTE | 2020-03-09 12:23 | Nephrology Progress Note ---
Date of Service March 09, 2020 Assessment & Plan (1) Acute kidney injury: CHLOÉ due to rhabdomyolysis and possible ATN. Creatinine stable at 2.8 mg/dL. Remains in a negative daily fluid balance without diuretics. BP acceptable. Total body water remains increased despite poor oral intake. O bligatory intake via IV > 1 L from IV medications. Working on converting or PO. Encourage oral protein intake. HCTZ has been held. CHLÉO with rhabdomyolysis, hypoalbuminemia, and intravascular volume depletion with 3rd spacing complicated by underlying nephrosis secondary to multiple myeloma. Medications appropriately dosed for kidney function. 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 s/p 2 u PRBC earlier during admission. (3) Rhabdomyolysis: Last CK remained elevated but improving. Will repeat in the AM. Urine output is acceptable. Continue to document I/O's. (4) CKD (chronic kidney disease): CKD III A3 related to history of multiple myeloma. Baseline creatinine 1.5-1.7 mg/dL. Admission and Anticipated Discharge Date Admission Date: February 29, 2020 Subjective No acute events overnight. Denies chest pain or palpitations. Breathing comfortably. No fevers or chills. Kirt remains very weak. He is thirst. Appetite is poor. Review of Systems Review of Systems: All systems reviewed & are unremarkable except as noted in HPI & below Physical Exam Constitutional: well developed and + obese; no acute distress Eyes: + anicteric sclerae; no corneal abnormality ENMT: Mouth: no oral mucosal abnormality and oral mucous membranes not dry Neck: normal visual inspection, trachea midline and + thick neck Respiratory: + tachypneic; no respiratory distress Auscultation: + diminished lung sounds Cardiovascular: Rate/Rhythm: regular rate Heart Sounds: normal S1 and normal S2 Extremities: + edema Gastrointestinal (Abdomen): Inspection/Auscultation: + abdomen distended Percussion/Palpation: abdomen nontender Musculoskeletal: Extremities: no cyanosis and no clubbing Skin: normal turgor; no lesions Neurologic: Motor/Sensory: no tremor and no asterixis Psychiatric: Orientation: alert and oriented x 3 Results & Data ([facility]) Vital Signs (Past 12 Hours) Vital Signs Temp Pulse Pulse Resp BP Pulse Ox 03/09/20 11:34 36.7 C 96 H 20 162/94 H 97 11/01/20 08:31 36.9 C 86 21 139/79 96 03/09/20 08:15 89 03/09/20 07:22 88 18 98 03/09/20 03:42 36.6 C 87 16 163/83 H 95 Laboratory Results Laboratory Results - last 24 hr 03/05/20 03/08/20 03/08/20 Unknown 16:13 20:26 WBC RBC Hgb Hct MCV MCH MCHC RDW Std Deviation RDW Coeff of Elvira Plt Count Immature Gran % (Auto) Neut % (Auto) Lymph % (Auto) Wolfe % (Auto) Eos % (Auto) Baso % (Auto) Neut # (Auto) Lymph # (Auto) Wolfe # (Auto) Eos # (Auto) Baso # (Auto) Immature Gran # (Auto) Absolute Nucleated RBC Nucleated RBC % (auto) Rouleaux Sodium Potassium Chloride Carbon Dioxide Anion Gap BUN Creatinine Est Cr Clr Drug Dosing Est GFR ( Amer) Est GFR (Non-Af Amer) BUN/Creatinine Ratio Glucose POC Glucose 127 H 114 H Calcium Phosphorus Magnesium Albumin BAL A.galactomannan Ag Not Detected BAL A.galactomann Index 0.34 03/09/20 03/09/20 03/09/20 07:26 07:38 07:45 WBC 3.09 L RBC 2.99 L Hgb 9.8 L Hct 30.1 L MCV 100.7 H MCH 32.8 MCHC 32.6 RDW Std Deviation 65.4 H RDW Coeff of Elvira 17.8 H Plt Count 56 L D Immature Gran % (Auto) 0.6 Neut % (Auto) 71.3 Lymph % (Auto) 21.7 Wolfe % (Auto) 5.2 Eos % (Auto) 0.6 Baso % (Auto) 0.6 Neut # (Auto) 2.20 Lymph # (Auto) 0.67 L Wolfe # (Auto) 0.16 Eos # (Auto) 0.02 Baso # (Auto) 0.02 Immature Gran # (Auto) 0.02 Absolute Nucleated RBC 0.06 H Nucleated RBC % (auto) 2.0 Rouleaux 1+ Sodium 144 Potassium 2.9 L Chloride 112 H Carbon Dioxide 24 Anion Gap 8.0 BUN 21 H Creatinine 2.81 H Est Cr Clr Drug Dosing 33.0 Est GFR ( Amer) 26.7 Est GFR (Non-Af Amer) 23.0 BUN/Creatinine Ratio 7.6 L Glucose 111 H POC Glucose 106 H Calcium 8.3 L Phosphorus 3.2 Magnesium 1.7 L Albumin 1.6 L BAL A.galactomannan Ag BAL A.galactomann Index 03/09/20 11:19 WBC RBC Hgb Hct MCV MCH MCHC RDW Std Deviation RDW Coeff of Elvira Plt Count Immature Gran % (Auto) Neut % (Auto) Lymph % (Auto) Wolfe % (Auto) Eos % (Auto) Baso % (Auto) Neut # (Auto) Lymph # (Auto) Wolfe # (Auto) Eos # (Auto) Baso # (Auto) Immature Gran # (Auto) Absolute Nucleated RBC Nucleated RBC % (auto) Rouleaux Sodium Potassium Chloride Carbon Dioxide Anion Gap BUN Creatinine Est Cr Clr Drug Dosing Est GFR ( Amer) Est GFR (Non-Af Amer) BUN/Creatinine Ratio Glucose POC Glucose 126 H Calcium Phosphorus Magnesium Albumin BAL A.galactomannan Ag BAL A.galactomann Index PG Care Time/CCT Total # of Minutes Spent Total Time Spent with Patient: Total time spent is greater than 50% in coordination of care (as documented) at patient's floor/unit and/or counseling patient: Coding Level of Care Code 65315 Subseq Hosp Care Lvl 3 Diagnoses Acute kidney injury N17.9 Pancytopenia D61.818 Rhabdomyolysis M62.82 Rhabdomyolysis type: non-traumatic CKD (chronic kidney disease) N18.9 (1) Rhabdomyolysis Rhabdomyolysis type: non-traumatic Qualified Code(s): M62.82 - Rhabdomyolysis
[2020-03-09] MEDS: AZITHROMYCIN 500 MG in DEXTROSE 5% 250 ML IV SCH (12:57)
[2020-03-09] MEDS: MAGNESIUM SULFATE / D5W 1 GM/100 ML BAG IV SCH ×2 (13:00→15:00)
[2020-03-10] MEDS: CEFTAROLINE FOSAMIL ACETATE 400 MG in SODIUM CHLORIDE 0.9% 250 ML IV SCH ×2 (04:19→15:49)
[2020-03-10] MEDS: SODIUM CHLOR 7% 4 ML NEB NEB SCH (07:25)
[2020-03-10 07:40] LABS: Mean Corpuscular Hgb Conc 32.8 g/dL (32-36); Nucleated RBC # (auto) 0.03 K/uL (0-0); Nucleated RBC % (auto) 0.7 %
[2020-03-10 07:58] LABS: Hemoglobin 9.5 g/dL (14.0-18.0); Mean Corpuscular Hemoglobin 32.9 pg (25-34); Mean Corpuscular Volume 100.3 fL (80-100); RDW Coefficient of Variation 17.6 % (11.5-14.5); RDW Standard Deviation 64.6 fL (36.4-46.3); Red Blood Count 2.89 M/uL (4.7-6.1)
[2020-03-10 08:05] LABS: Platelet Count 77 K/uL (130-400)
[2020-03-10 08:06] LABS: Basophils # (auto) 0.01 K/uL (0-0.2); Basophils % (auto) 0.3 %; Eosinophils # (auto) 0.01 K/uL (0-0.5); Eosinophils % (auto) 0.3 %; Immature Granulocytes # (auto) 0.06 K/uL (0.00-0.02); Immature Granulocytes % (auto) 1.5 %; Lymphocytes % (auto) 20.5 %; Monocytes # (auto) 0.23 K/uL (0.11-0.59); Monocytes % (auto) 5.9 %; Neutrophils # (auto) 2.79 K/uL (1.4-6.5); Neutrophils % (auto) 71.5 %
[2020-03-10 08:26] LABS: Albumin Level 1.6 gm/dl (3.4-5.0); BUN Creatinine Ratio 6.5 (10-20); Creatinine Clr Calc Pharmacy 33.3 ml/min; Est GFR (African American) 28.1; Est GFR (Non-African American) 24.3; Potassium 2.9 mmol/L (3.5-5.1)
[2020-03-10] MEDS: INSULIN ASPART 100 UNITS/ML 3 ML PEN SC SCH ×4 (08:32→21:56)
[2020-03-10] MEDS: guaiFENesin 600 MG TABCR PO SCH ×2 (08:34→19:49)
[2020-03-10] MEDS: MULTIVITAMIN TAB PO SCH (08:35)
[2020-03-10] MEDS: CYANOCOBALAMIN 500 MCG TABLET (VITAMIN B-12) PO SCH (08:35)
[2020-03-10] MEDS: ACYCLOVIR 400 MG TAB PO SCH ×2 (08:35→19:49)
[2020-03-10] MEDS: POTASSIUM CHLORIDE CRTAB 20 MEQ TABCR PO SCH ×3 (08:35→21:56)
[2020-03-10] MEDS: AMIODARONE 200 MG TAB PO SCH (08:35)
[2020-03-10] MEDS: FLUTICASONE PROPIONATE NA SPR 16 GM BTL SCH (08:36)
[2020-03-10] MEDS: PANTOprazole 40 MG TAB PO SCH ×2 (08:36→19:49)
[2020-03-10] MEDS: METOPROLOL TARTRATE 100 MG TAB PO SCH ×2 (08:36→19:49)
[2020-03-10 08:38] LABS: Phosphorus 2.6 mg/dl (2.5-4.9)
--- NOTE | 2020-03-10 11:11 | Nephrology Progress Note ---
Date of Service March 10, 2020 Assessment & Plan (1) Acute kidney injury: CHLOÉ due to rhabdomyolysis and possible ATN. Creatinine slightly improved to 2.7 mg/dL. Remains in a negative daily fluid balance without diuretics. Metabolic profile demonstrates persistent hypokalemia. Oral replacement with KCl 20 mEq TID started yesterday and continued. Additional 30 mEq IV provided this AM. Will recheck a metabolic profile this afternoon. Magnesium 2.0 is acceptable. PO4 acceptable but dropped slightly to 2.6 and will be monitored. Encourage nutrition, including protein supplements. BP slightly elevated this morning. Asymptomatic in this regard. Defer JAVON/ARB for now in setting of renal recovery. CHLOÉ with rhabdomyolysis, hypoalbuminemia, and intravascular volume depletion with 3rd spacing complicated by underlying nephrosis secondary to multiple myeloma. Medications appropriately dosed for kidney function. 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 s/p 2 u PRBC earlier during admission. (3) Rhabdomyolysis: Last CK remained elevated but improving. Will repeat in the AM. Urine output is acceptable. Continue to document I/O's. (4) CKD (chronic kidney disease): CKD III A3 related to history of multiple myeloma. Baseline creatinine 1.5-1.7 mg/dL. Admission and Anticipated Discharge Date Admission Date: February 29, 2020 Subjective No acute events overnight. Remains very weak. Appetite decreased. No fevers or chills. No chest pain or palpitations. Denies significant dyspnea. Reports some congestion in his chest this morning. No diarrhea. Review of Systems Review of Systems: All systems reviewed & are unremarkable except as noted in HPI & below Physical Exam Constitutional: well developed and + obese; no acute distress Eyes: + anicteric sclerae; no corneal abnormality ENMT: Mouth: + dry oral mucous membranes; no oral mucosal abnormality Neck: normal visual inspection, trachea midline and + thick neck Respiratory: no respiratory distress Auscultation: + diminished lung sounds Cardiovascular: Rate/Rhythm: regular rate Heart Sounds: normal S1 and normal S2 Extremities: + edema Gastrointestinal (Abdomen): Inspection/Auscultation: + abdomen distended Percussion/Palpation: abdomen nontender Musculoskeletal: Extremities: no cyanosis and no clubbing Skin: normal turgor; no lesions Neurologic: Motor/Sensory: no tremor and no asterixis Psychiatric: Orientation: alert and oriented x 3 Results & Data ([facility]) Vital Signs (Past 12 Hours) Vital Signs Temp Pulse Resp BP Pulse Ox 03/10/20 07:25 104 H 20 97 03/10/20 07:20 36.7 C 104 H 22 177/98 H 94 03/10/20 04:40 36.7 C 86 20 176/99 H 95 03/10/20 00:17 36.7 C 101 H 22 148/87 H 95 Laboratory Results Laboratory Results - last 24 hr 03/09/20 03/09/20 03/09/20 11:19 15:40 20:10 WBC RBC Hgb Hct MCV MCH MCHC RDW Std Deviation RDW Coeff of Elvira Plt Count Immature Gran % (Auto) Neut % (Auto) Lymph % (Auto) Ralls % (Auto) Eos % (Auto) Baso % (Auto) Neut # (Auto) Lymph # (Auto) Ralls # (Auto) Eos # (Auto) Baso # (Auto) Immature Gran # (Auto) Absolute Nucleated RBC Nucleated RBC % (auto) Sodium Potassium Chloride Carbon Dioxide Anion Gap BUN Creatinine Est Cr Clr Drug Dosing Est GFR ( Amer) Est GFR (Non-Af Amer) BUN/Creatinine Ratio Glucose POC Glucose 126 H 147 H 109 H Calcium Phosphorus Magnesium Total Creatine Kinase Albumin Stl C. diff Tox B Gene 03/10/20 03/10/20 03/10/20 00:38 06:49 06:49 WBC 3.90 L RBC 2.89 L Hgb 9.5 L Hct 29.0 L MCV 100.3 H MCH 32.9 MCHC 32.8 RDW Std Deviation 64.6 H RDW Coeff of Elvira 17.6 H Plt Count 77 L Immature Gran % (Auto) 1.5 Neut % (Auto) 71.5 Lymph % (Auto) 20.5 Ralls % (Auto) 5.9 Eos % (Auto) 0.3 Baso % (Auto) 0.3 Neut # (Auto) 2.79 Lymph # (Auto) 0.80 L Ralls # (Auto) 0.23 Eos # (Auto) 0.01 Baso # (Auto) 0.01 Immature Gran # (Auto) 0.06 H Absolute Nucleated RBC 0.03 H Nucleated RBC % (auto) 0.7 Sodium 145 Potassium 2.9 L Chloride 115 H Carbon Dioxide 22 Anion Gap 9.0 BUN 18 Creatinine 2.69 H Est Cr Clr Drug Dosing 33.3 Est GFR ( Amer) 28.1 Est GFR (Non-Af Amer) 24.3 BUN/Creatinine Ratio 6.5 L Glucose 131 H POC Glucose Calcium 8.0 L Phosphorus 2.6 Magnesium 2.0 Total Creatine Kinase 339 H Albumin 1.6 L Stl C. diff Tox B Gene Negative Cdiff Gene 03/10/20 07:18 WBC RBC Hgb Hct MCV MCH MCHC RDW Std Deviation RDW Coeff of Elvira Plt Count Immature Gran % (Auto) Neut % (Auto) Lymph % (Auto) Ralls % (Auto) Eos % (Auto) Baso % (Auto) Neut # (Auto) Lymph # (Auto) Ralls # (Auto) Eos # (Auto) Baso # (Auto) Immature Gran # (Auto) Absolute Nucleated RBC Nucleated RBC % (auto) Sodium Potassium Chloride Carbon Dioxide Anion Gap BUN Creatinine Est Cr Clr Drug Dosing Est GFR ( Amer) Est GFR (Non-Af Amer) BUN/Creatinine Ratio Glucose POC Glucose 117 H Calcium Phosphorus Magnesium Total Creatine Kinase Albumin Stl C. diff Tox B Gene PG Care Time/CCT Total # of Minutes Spent Total Time Spent with Patient: Total time spent is greater than 50% in coordination of care (as documented) at patient's floor/unit and/or counseling patient: Coding Level of Care Code 60962 Subseq Hosp Care Lvl 3 Diagnoses Acute kidney injury N17.9 Pancytopenia D61.818 Rhabdomyolysis M62.82 Rhabdomyolysis type: non-traumatic CKD (chronic kidney disease) N18.9 (1) Rhabdomyolysis Rhabdomyolysis type: non-traumatic Qualified Code(s): M62.82 - Rhabdomyolysis
[2020-03-10] MEDS: POTASSIUM CHLORIDE / WTR 10 MEQ/100 ML PLCT IV SCH ×3 (11:53→13:59)
[2020-03-10] MEDS: AZITHROMYCIN 500 MG in DEXTROSE 5% 250 ML IV SCH (11:55)
--- NOTE | 2020-03-10 15:34 | Hospitalist Progress Note ---
Date of Service March 10, 2020 Assessment & Plan (1) Coagulase negative Staphylococcus bacteremia: 3 out of 4 cultures growing coag negative staph, resistant to oxacillin on 1 set and sensitive on another Was Vancomycin but has now been discontinued intravenously, but he is getting Vanco locks in his port in an effort to save it. Port does not appear infected. Repeat blood cultures from 03/04 remain no growth to date Carly CAMPO was contacted by the ICU team re: antibiotics and duration given his positive blood cultures from 03/01 with two different coag neg staph species (one oxacillin sensitive, one resistant). Dr. Wong recommended discontinuation of zosyn and vanc, and instead treating the bacteremia with IV ceftaroline for 14 days from the first negative blood culture. She also recommended removal of his mediport given he is still febrile (although she was aware he is a bleeding risk given thrombocytopenia and anemia). She agreed with 10 day duration of azithromycin for legionella PNA. Remains afebrile now for 72 hours will plan to keep port for now no septic clots on venous US might need repeat echocardiogram to firmly ruler out vegetations, initial echo showed no vegetations (2) Sepsis: Severe sepsis, septicemia-resolving This patient is a 64yo C male found down at home x24 hours, with acute metabolic encephalopathy, lactic acidosis. Febrile with temperature of 107.8 /tachycardic/tachypneic on arrival. Found with RUPINDER PNA on chest x-ray. Procal elevated at 2.27. Flu negative, Covid negative MRSA swab negative Immunocompromised from multiple myeloma with port in place Blood cultures: 02/28 with coag negative staph, 03/01 with coag negative staph, repeat cultures 03/04 no growth as above With lactic acidosis-lactate elevated at 3.6 on admission and then down to 1.9 Now afebrile x 72 hrs urine legionella positive, continue Zithromax 500mg daily with close attention to QTc as above x 10 days continue Ceftaroline and Vancomycin no fungal coverage needed, Beta-D glucan positive (false positive?), Fungal cultures negative Serenity growing from bronc washing (3) Anemia: macrocytic, down to 6.0 03/06 this is due to marrow failure, suppression from both myeloma and chemotherapy appreciate hematology consultation transfused 2 units 03/06, Hb up to 9.5 today and stable Follow CBC (4) Pneumonia: Chest x-ray with RUPINDER socked in PNA-the source of his sepsis urine legionella antigen positive continue Zithromax 500mg daily x 10 days (started 03/06, final dose will be 03/15) bronchoscopy 03/05, lavage with cultures taken, no growth continue flutter valve breathing is better, down to room air for many days Encourage mobilization (5) Atrial fibrillation with rapid ventricular response: Paroxysmal atrial fibrillation with heart rates at times to the 190s converted to sinus rhythm, sinus tachycardia on IV amiodarone continue amiodarone 200mg PO daily continue metoprolol 100mg BID cardiology following [id number] score is 1 -Appreciate cardiology consultation-recommends against anticoagulation at this time given higher risk for bleeding given multiple myeloma, anemia and worsening thrombocytopenia echo was largely normal (6) HCLOÉ (acute kidney injury): With creatinine elevated at 2.4 on admission and initially improved, but then peaked at 3.07 Cr stable at 2.6-2.8 continue to monitor, no role for diuretics today he continues to self diurese Urinalysis on admission with granular casts,'s most likely secondary to ATN from severe sepsis He has decreased effective arterial volume secondary to hypoalbuminemia, developing anasarca from copious IV fluid administration for rhabdomyolysis Also with nonanion gap metabolic acidosis, resolved He is making urine without Bumex Appreciate nephrology consultation- want even or negative fluid balance next few days Follow CK for rhabdomyolysis, trending down (7) Rhabdomyolysis: CK >24061 on arrival, secondary to prolonged down time. CK increased after admission to 24,000 but is now decreased to 300 after copious IV fluids were given - stopped fluids 03/02 -Friedman in place, closely monitor UOP, can likely discontinue Friedman catheter tomorrow -Follow serial CK -Monitor renal function and electrolytes and replace as needed -Appreciate nephrology consultation (8) Acute respiratory failure with hypoxia: Was requiring 3 L nasal cannula and saturations at 99% Secondary to pneumonia and sepsis Now resolved (9) Elevated troponin: Patient denies CP, palpitations. No EKG evidence of ischemia. With acute kidney injury and rhabdomyolysis as well as rapid atrial fibrillation all contributing to myocardial demand ischemia. Did not present with acute coronary syndrome -Troponin peaked at 1.1 and back down again. Appreciate cardiology consultation Echocardiogram without wall motion abnormalities and with preserved EF -Was on ASA 81mg po daily but held for low platelets-can likely restart tomorrow if platelets remain greater than 50 -Continue metoprolol as above (10) Abnormal liver enzymes: Elevated LFTs most likely secondary to sepsis and rhabdomyolysis CT abdomen/pelvis with mild hepatic steatosis, normal gallbladder and pancreas. -Also now on amiodarone LFTs were improving on last check-we will follow again in the morning (11) Multiple myeloma in remission: Patient receiving chemotherapy with Darzalex, last dose was 01/30/2020. Follows with Dr. Potts at the [facility] -LDH is quite elevated at 1000 and Uric acid normal, do not suspect tumor lysis syndrome Continue acyclovir for prophylaxis Follow CBC With multiple lytic bone lesions diffusely on imaging -Future chemotherapy is on hold until stabilized from medical standpoint (12) Hypokalemia: K is low again at 2.9, continue 20mEq TID plus 30mEq IV again today Repeat BMP later in the day was improved with potassium 3.5 Follow BMP in the morning (13) Hypophosphatemia: Severely low-replaced and resolved Follow phosphorus level (14) CKD (chronic kidney disease): Baseline creatinine is around 1.4-1.7 With CHLOÉ as above -Avoid nephrotoxins -renally dose meds when appropriate -follow BMP (15) HTN (hypertension): Blood pressures are on the low side when he has rapid atrial fibrillation, but now improved after spontaneous conversion to sinus rhythm -Continue holding home HCTZ -Continue metoprolol with hold parameters (16) Fall: Likely secondary to weakness from pneumonia and sepsis CT of the cervical spine, head CT, chest/abdomen/pelvis CT without fractures or acute findings other than PNA With continued left shoulder pain and weakness-consult orthopedic surgery (17) Pancytopenia: Secondary to multiple myeloma and chemotherapy as well as sepsis, possible DIC? Now improving Follow CBC in the morning Transfuse as needed (18) Prediabetes: Hemoglobin A1c elevated at 6.4% Follow Accu-Cheks NovoLog sliding scale insulin (19) Neuropathy: -Continue to hold home gabapentin, doxepin Thought to be secondary to chemotherapy (20) Hypoalbuminemia: Albumin severely low at 1.6, likely secondary to cancer, poor nutrition, and sepsis Follow levels Third spacing Appreciate dietary consultation (21) Paresthesia of left arm: As above, secondary to significant edema from rhabdomyolysis Watch for development of compartment syndrome Diuresing -Continue to elevate arm on pillow (22) GERD (gastroesophageal reflux disease): Continue PPI (23) Shoulder weakness: With persistent weakness of the left shoulder, but able to move the distal hand and fingers, suspect some sort of rotator cuff tear during his fall Continues with edema Doppler of the left upper extremity negative for DVT X-rays negative for fracture of the shoulder -Consult orthopedic surgery for further management to see if MRI is necessary (24) DVT prophylaxis: Heparin SQ was held by mortgage loan coordinator due to worsening thrombocytopenia, but can be restarted now that platelets are greater than 50 Disposition- continue PT/OT, plan for rehab, likely ready in the next 2 to 3 days Full code Admission and Anticipated Discharge Date Admission Date: February 29, 2020 Subjective Patient reports still feels very weak. He could not do much with physical therapy today but was out of bed to chair for a little bit. He still cannot move his left arm at the shoulder at all. He is weaned off oxygen and reports feeling a little short of breath. Not much cough. No chest pain. No nausea but has a very low appetite. He is having loose stools but C. difficile is negative. He is making urine and Friedman catheter remains in place. He would like it to stay in at least 1 more day until he can be more mobile. Telemetry with normal sinus rhythm, PVCs, PACs, rates 90s to 120s with a burst of A. fib to the 160s. Review of Systems Review of Systems: All systems reviewed & are unremarkable except as noted in HPI & below Physical Exam Constitutional: WD/WN, vitals as above + obese Eyes: + anicteric sclerae Neck: trachea midline, no thyromegaly Respiratory: Auscultation: + diminished lung sounds (Throughout) and + rhonchi (Left upper lung field) Cardiovascular: Rate/Rhythm: regular rate and regular rhythm Heart Sounds: no murmur Vessels: radial pulses present Extremities: + edema (Much improved with less edema of the legs and arms except left arm2+) Chest (Breasts): Chest: + vascular access device or port (Port in place on the left, no surrounding erythema) Gastrointestinal (Abdomen): normal bowel sounds, soft, nontender, no hepatosplenomegaly Musculoskeletal: Extremities: + extremities abnormal to inspection (Left upper extremity with 2+ edema, no tenderness to palpation over shoulder, elbow, wrist, or hand joints. Able to flex and extend and make a fist and wrist extension and flexion, able to flex and extend the elbow, not able to lift arm above the level of the shoulder), no cyanosis and no clubbing Neurologic: + focal motor deficit (Some weakness in the left shoulder abduction as above) and awake Psychiatric: Orientation: alert and oriented x 3 Affect: euthymic affect Genitourinary: Friedman catheter in place draining clear yellow urine Results & Data Results & Data ([facility]) Vital Signs (Past 12 Hours) Vital Signs Temp Pulse Resp BP Pulse Ox 03/10/20 11:14 36.6 C 90 22 138/78 98 03/10/20 07:25 104 H 20 97 03/10/20 07:20 36.7 C 104 H 22 177/98 H 94 03/10/20 04:40 36.7 C 86 20 176/99 H 95 Laboratory Results 03/10/20 03/10/20 03/10/20 Range/Units 16:16 14:34 11:22 WBC (4.8-10.8) K/uL RBC (4.7-6.1) M/uL Hgb (14.0-18.0) g/dL Hct (42-52) % MCV (80-100) fL MCH (25-34) pg MCHC (32-36) g/dL RDW Std Deviation (36.4-46.3) fL RDW Coeff of Elvira (11.5-14.5) % Plt Count (130-400) K/uL Immature Gran % (Auto) % Neut % (Auto) % Lymph % (Auto) % Hudson % (Auto) % Eos % (Auto) % Baso % (Auto) % Neut # (Auto) (1.4-6.5) K/uL Lymph # (Auto) (1.2-3.4) K/uL Hudson # (Auto) (0.11-0.59) K/uL Eos # (Auto) (0-0.5) K/uL Baso # (Auto) (0-0.2) K/uL Immature Gran # (Auto) (0.00-0.02) K/uL Absolute Nucleated RBC (0-0) K/uL Nucleated RBC % (auto) % Sodium 145 (136-145) mmol/L Potassium 3.5 D (3.5-5.1) mmol/L Chloride 116 H (98-107) mmol/L Carbon Dioxide 21 (21-32) mmol/L Anion Gap 8.0 (3-11) BUN 17 (7-18) mg/dl Creatinine 2.81 H (0.6-1.4) mg/dl Est Cr Clr Drug Dosing 31.9 ml/min Est GFR ( Amer) 26.7 Est GFR (Non-Af Amer) 23.0 BUN/Creatinine Ratio 5.9 L (10-20) Glucose 118 H (70-99) mg/dl POC Glucose 104 H 110 H (70-99) mg/dl Calcium 8.3 L (8.5-10.1) mg/dl Phosphorus (2.5-4.9) mg/dl Magnesium (1.8-2.4) mg/dl Total Creatine Kinase (39-308) U/L Albumin (3.4-5.0) gm/dl Stl C. diff Tox B Gene (Neg) 03/10/20 03/10/20 03/10/20 Range/Units 07:18 06:49 06:49 WBC 3.90 L (4.8-10.8) K/uL RBC 2.89 L (4.7-6.1) M/uL Hgb 9.5 L (14.0-18.0) g/dL Hct 29.0 L (42-52) % MCV 100.3 H (80-100) fL MCH 32.9 (25-34) pg MCHC 32.8 (32-36) g/dL RDW Std Deviation 64.6 H (36.4-46.3) fL RDW Coeff of Elvira 17.6 H (11.5-14.5) % Plt Count 77 L (130-400) K/uL Immature Gran % (Auto) 1.5 % Neut % (Auto) 71.5 % Lymph % (Auto) 20.5 % Hudson % (Auto) 5.9 % Eos % (Auto) 0.3 % Baso % (Auto) 0.3 % Neut # (Auto) 2.79 (1.4-6.5) K/uL Lymph # (Auto) 0.80 L (1.2-3.4) K/uL Hudson # (Auto) 0.23 (0.11-0.59) K/uL Eos # (Auto) 0.01 (0-0.5) K/uL Baso # (Auto) 0.01 (0-0.2) K/uL Immature Gran # (Auto) 0.06 H (0.00-0.02) K/uL Absolute Nucleated RBC 0.03 H (0-0) K/uL Nucleated RBC % (auto) 0.7 % Sodium 145 (136-145) mmol/L Potassium 2.9 L (3.5-5.1) mmol/L Chloride 115 H (98-107) mmol/L Carbon Dioxide 22 (21-32) mmol/L Anion Gap 9.0 (3-11) BUN 18 (7-18) mg/dl Creatinine 2.69 H (0.6-1.4) mg/dl Est Cr Clr Drug Dosing 33.3 ml/min Est GFR ( Amer) 28.1 Est GFR (Non-Af Amer) 24.3 BUN/Creatinine Ratio 6.5 L (10-20) Glucose 131 H (70-99) mg/dl POC Glucose 117 H (70-99) mg/dl Calcium 8.0 L (8.5-10.1) mg/dl Phosphorus 2.6 (2.5-4.9) mg/dl Magnesium 2.0 (1.8-2.4) mg/dl Total Creatine Kinase 339 H (39-308) U/L Albumin 1.6 L (3.4-5.0) gm/dl Stl C. diff Tox B Gene (Neg) 03/10/20 03/09/20 Range/Units 00:38 20:10 WBC (4.8-10.8) K/uL RBC (4.7-6.1) M/uL Hgb (14.0-18.0) g/dL Hct (42-52) % MCV (80-100) fL MCH (25-34) pg MCHC (32-36) g/dL RDW Std Deviation (36.4-46.3) fL RDW Coeff of Elvira (11.5-14.5) % Plt Count (130-400) K/uL Immature Gran % (Auto) % Neut % (Auto) % Lymph % (Auto) % Hudson % (Auto) % Eos % (Auto) % Baso % (Auto) % Neut # (Auto) (1.4-6.5) K/uL Lymph # (Auto) (1.2-3.4) K/uL Hudson # (Auto) (0.11-0.59) K/uL Eos # (Auto) (0-0.5) K/uL Baso # (Auto) (0-0.2) K/uL Immature Gran # (Auto) (0.00-0.02) K/uL Absolute Nucleated RBC (0-0) K/uL Nucleated RBC % (auto) % Sodium (136-145) mmol/L Potassium (3.5-5.1) mmol/L Chloride (98-107) mmol/L Carbon Dioxide (21-32) mmol/L Anion Gap (3-11) BUN (7-18) mg/dl Creatinine (0.6-1.4) mg/dl Est Cr Clr Drug Dosing ml/min Est GFR ( Amer) Est GFR (Non-Af Amer) BUN/Creatinine Ratio (10-20) Glucose (70-99) mg/dl POC Glucose 109 H (70-99) mg/dl Calcium (8.5-10.1) mg/dl Phosphorus (2.5-4.9) mg/dl Magnesium (1.8-2.4) mg/dl Total Creatine Kinase (39-308) U/L Albumin (3.4-5.0) gm/dl Stl C. diff Tox B Gene Negative Cdiff Gene (Neg) PG Care Time/CCT Total # of Minutes Spent Total Time Spent with Patient: Total time spent is greater than 50% in brownfield program coordinator rdination of care (as documented) at patient's floor/unit and/or counseling patient: Coding Level of Care Code 14214 Subseq Hosp Care Lvl 3 Diagnoses Coagulase negative Staphylococcus bacteremia R78.81; B95.7 Sepsis A41.9; R65.20; G93.40 Sepsis acute organ dysfunction status: with acute organ dysfunction Sepsis type: sepsis due to unspecified organism Severe sepsis acute organ dysfunction type: encephalopathy Severe sepsis shock status: without septic shock Anemia D64.9 Pneumonia J18.9 Pneumonia type: due to unspecified organism Atrial fibrillation with rapid ventricular response I48.91 CHLOÉ (acute kidney injury) N17.9 Rhabdomyolysis M62.82 Rhabdomyolysis type: non-traumatic Acute respiratory failure with hypoxia J96.01 Elevated troponin R77.8 Abnormal liver enzymes R74.8 Multiple myeloma in remission C90.01 Hypokalemia E87.6 Hypophosphatemia E83.39 CKD (chronic kidney disease) N18.9 HTN (hypertension) I10 Fall W19.XXXA Pancytopenia D61.818 Prediabetes R73.03 Neuropathy G62.9 Hypoalbuminemia E88.09 Paresthesia of left arm R20.2 GERD (gastroesophageal reflux disease) K21.9 Shoulder weakness R29.898 DVT prophylaxis Z29.9 (1) Rhabdomyolysis Rhabdomyolysis type: non-traumatic Qualified Code(s): M62.82 - Rhabdomyolysis (2) Sepsis Sepsis acute organ dysfunction status: with acute organ dysfunction Sepsis type: sepsis due to unspecified organism Severe sepsis acute organ dysfunction type: encephalopathy Severe sepsis shock status: without septic shock Qualified Code(s): A41.9 - Sepsis, unspecified organism; R65.20 - Severe sepsis without septic shock; G93.40 - Encephalopathy, unspecified (3) Pneumonia Pneumonia type: due to unspecified organism
[2020-03-10 16:11] LABS: BUN Creatinine Ratio 5.9 (10-20); Calcium 8.3 mg/dl (8.5-10.1); Creatinine Clr Calc Pharmacy 31.9 ml/min; Est GFR (African American) 26.7; Potassium 3.5 mmol/L (3.5-5.1)
[2020-03-10] MEDS: HEPARIN SOD 5,000 UNIT/0.5 ML VIAL SQ SCH (21:56)
[2020-03-11] MEDS: CEFTAROLINE FOSAMIL ACETATE 400 MG in SODIUM CHLORIDE 0.9% 250 ML IV SCH ×2 (04:17→15:31)
[2020-03-11] MEDS: HEPARIN SOD 5,000 UNIT/0.5 ML VIAL SQ SCH ×3 (05:25→21:44)
[2020-03-11 06:24] LABS: Hematocrit (blood only) 29.6 % (42-52); Hemoglobin 9.8 g/dL (14.0-18.0); Mean Corpuscular Hemoglobin 33.3 pg (25-34); Mean Corpuscular Hgb Conc 33.1 g/dL (32-36); Mean Corpuscular Volume 100.7 fL (80-100); Platelet Count 98 K/uL (130-400); RDW Coefficient of Variation 17.6 % (11.5-14.5); RDW Standard Deviation 65.1 fL (36.4-46.3); Red Blood Count 2.94 M/uL (4.7-6.1); White Blood Count 3.56 K/uL (4.8-10.8)
[2020-03-11 06:54] LABS: Albumin Level 1.7 gm/dl (3.4-5.0); BUN Creatinine Ratio 5.7 (10-20); Bilirubin Direct 0.4 mg/dl (0-0.2); Calcium 8.1 mg/dl (8.5-10.1); Creatinine Clr Calc Pharmacy 33.1 ml/min; Est GFR (African American) 28.3; Est GFR (Non-African American) 24.4; Magnesium 1.8 mg/dl (1.8-2.4); Potassium 2.9 mmol/L (3.5-5.1)
[2020-03-11 06:56] LABS: Bilirubin,Total 0.8 mg/dl (0.2-1); Phosphorus 2.8 mg/dl (2.5-4.9); Total Protein 6.6 gm/dl (6.4-8.2)
[2020-03-11 07:00] LABS: Basophils # (auto) 0.01 K/uL (0-0.2); Basophils % (auto) 0.3 %; Eosinophils # (auto) 0.02 K/uL (0-0.5); Eosinophils % (auto) 0.6 %; Immature Granulocytes # (auto) 0.07 K/uL (0.00-0.02); Lymphocytes % (auto) 25.3 %; Monocytes # (auto) 0.19 K/uL (0.11-0.59); Monocytes % (auto) 5.3 %; Neutrophils # (auto) 2.37 K/uL (1.4-6.5); Neutrophils % (auto) 66.5 %
[2020-03-11] MEDS: METOPROLOL TARTRATE 100 MG TAB PO SCH ×2 (07:37→21:19)
[2020-03-11] MEDS: AMIODARONE 200 MG TAB PO SCH (07:38)
[2020-03-11] MEDS: FLUTICASONE PROPIONATE NA SPR 16 GM BTL SCH (07:38)
[2020-03-11] MEDS: POTASSIUM CHLORIDE CRTAB 20 MEQ TABCR PO SCH ×3 (07:38→21:23)
[2020-03-11] MEDS: guaiFENesin 600 MG TABCR PO SCH ×2 (07:39→21:18)
[2020-03-11] MEDS: ASPIRIN 81 MG ECTAB PO SCH (07:39)
[2020-03-11] MEDS: MULTIVITAMIN TAB PO SCH (07:40)
[2020-03-11] MEDS: CYANOCOBALAMIN 500 MCG TABLET (VITAMIN B-12) PO SCH (07:40)
[2020-03-11] MEDS: PANTOprazole 40 MG TAB PO SCH ×2 (07:40→21:18)
[2020-03-11] MEDS: ACYCLOVIR 400 MG TAB PO SCH ×2 (07:40→21:18)
[2020-03-11] MEDS: INSULIN ASPART 100 UNITS/ML 3 ML PEN SC SCH ×4 (07:42→21:45)
[2020-03-11] MEDS ORDERED: POTASSIUM CHLORIDE CRTAB 20 MEQ TABCR PO ONE (08:15)
[2020-03-11] MEDS: POTASSIUM CHLORIDE / WTR 10 MEQ/100 ML PLCT IV SCH ×3 (09:39→11:30)
[2020-03-11 10:16] LABS: Appearance Urine Cloudy (Clear); Bacteria Urine Automated Negative (Negative); Bilirubin Urine Negative (Negative); Blood Urine 2+ (Negative); Color Urine Yellow; Epithelial Cell Urine Auto >30 /lpf (0-5); Glucose Urine UA Negative (Negative); Ketones Urine Negative (Negative); Leukocyte Esterase Urine Trace (Negative); Nitrite Urine Negative (Negative); Protein Urine 1+ (Negative); Urobilinogen Urine Negative (Negative); pH Urine 5.5 (4.5-7.5)
--- NOTE | 2020-03-11 10:24 | Consultation Report ---
DATE OF CONSULTATION: 03/11/2020 CHIEF COMPLAINT: Left shoulder weakness. HISTORY OF PRESENT ILLNESS: The patient is a 64-year-old male, right hand dominant, who was found down by his neighbor on 03/01/2020. He had a mechanical fall one day prior to that and laid on the floor for a day on his left side. Prior to this injury not had any problems with his left shoulder. He was brought to the Emergency Room where he was found to be markedly febrile, tachycardic and hypertensive as well as tachypneic. He was admitted to the hospital with a diagnosis of a sepsis and rhabdomyolysis as well as AFib with RVR. He is currently receiving chemotherapy for multiple myeloma. He had metabolic encephalopathy on first arrival to the hospital. His mental status is somewhat improved. He has been found to be bacteremic with coag negative staph and is currently on IV antibiotics. He has received 2 units of packed red blood cells for anemia during his hospital admission, suspected due to marrow failure. He has been diagnosed with pneumonias, which is the suspected source of his sepsis. His AFib with RVR is converted back to sinus rhythm and he is on amiodarone. He is also being treated for acute kidney injury. His creatinine kinase is decreased from his rhabdomyolysis diagnosis. He is being followed by Hematology, Nephrology and Cardiology. His elevated troponins have trended downward since his hospital admission. Liver function tests were elevated on admission and are trending downward. Blood pressure is under better control. In speaking with the patient about his left shoulder, he reports that he is unable to raise his arm up. He has never had something like this before. He does report a history of neuropathy affecting the pinkie, ring and long fingers on the left hand. He states that the shoulder is not a very painful. Denies any numbness or tingling above and beyond his baseline neuropathy. PAST MEDICAL HISTORY, PAST SURGICAL HISTORY, 14-POINT REVIEW OF SYSTEMS, SOCIAL HISTORY, ALLERGIES, MEDICATIONS: Are reviewed in the chart. PHYSICAL EXAMINATION: VITAL SIGNS: Show him to be afebrile this morning at 36.7. Blood pressure slightly elevated at 163/89, mildly tachycardic at 102, respiratory rate 19. Oxygen saturation 96% on room air. GENERAL: A pleasant male who has some difficulty finding words, but responds to questions appropriately. PSYCHIATRIC: Mood and affect are appropriate. EXTREMITIES: Left shoulder exam reveals the patient to have intact sensation to light touch in the axillary, radial and median nerve distributions. He has some decreased sensation to light touch; however, in the ulnar nerve distribution on his pinkie finger. However, his finger abduction is intact. He is able to fire EPL and FPL. He can fire wrist extensors and wrist flexors at 4/5. Biceps and triceps function are intact at 4-/5 and 4/5 respectively. His deltoid function is intact at 4/5. He is able to fire his subscapularis with 4/5 strength. However, he has no ability to externally rotate his arm with his elbow kept at the side. When I place his shoulder in 90 degrees of abducted position, he is unable to hold the arm there. RESULTS REVIEWED: X-rays done on admission 03/02/2020 are reviewed. These include x-rays of the humerus and shoulder. No fractures visualized. He does have some lytic lesions consistent with his diagnosis of multiple myeloma. 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 The patient has recovered significantly from his hospital admission; however, has multiple underlying medical comorbidities of high severity, most notably multiple myeloma on chemotherapy and coag negative staph bacteremia. Differential diagnosis includes a rotator cuff tear versus neuropathy versus others. PLAN: MRI of the left shoulder would be a reasonable consideration to help narrow the differential diagnosis. This is certainly not an emergency; however, and we will defer to the primary care team on whether he is medically stable enough to go for an MRI. This can be ordered at their discretion. The preferred study would be a noncontrast MRI. Recommend physical therapy for continued passive range of motion and mobilization of his arm and shoulder. Orthopedics will continue to follow. [facility]
--- NOTE | 2020-03-11 10:41 | Hospitalist Progress Note ---
Date of Service March 11, 2020 Assessment & Plan (1) Coagulase negative Staphylococcus bacteremia: 3 out of 4 cultures growing coag negative staph, resistant to oxacillin on 1 set and sensitive on another Was Vancomycin but has now been discontinued intravenously, but he is getting Vanco locks in his port in an effort to save it. Port does not appear infected. Repeat blood cultures from 03/04 remain no growth to date Carly CAMPO was contacted by the ICU team re: antibiotics and duration given his positive blood cultures from 03/01 with two different coag neg staph species (one oxacillin sensitive, one resistant). Dr. Wong recommended discontinuation of zosyn and vanc, and instead treating the bacteremia with IV ceftaroline for 14 days from the first negative blood culture. She also recommended removal of his mediport given he is still febrile (although she was aware he is a bleeding risk given thrombocytopenia and anemia). She agreed with 10 day duration of azithromycin for legionella PNA. Remains afebrile now for many days will plan to keep port for now no septic clots on venous US might need repeat echocardiogram to firmly ruler out vegetations, initial echo showed no vegetations (2) Sepsis: Severe sepsis, septicemia-resolved This patient is a 64yo C male found down at home x24 hours, with acute metabolic encephalopathy, lactic acidosis. Febrile with temperature of 107.8 /tachycardic/tachypneic on arrival. Found with RUPINDER PNA on chest x-ray. Procal elevated at 2.27. Flu negative, Covid negative MRSA swab negative Immunocompromised from multiple myeloma with port in place Blood cultures: 02/28 with coag negative staph, 03/01 with coag negative staph, repeat cultures 03/04 no growth as above With lactic acidosis-lactate elevated at 3.6 on admission and then down to 1.9 Now afebrile as above for many days urine legionella positive, continue Zithromax 500mg daily with close attention to QTc as above x 10 days continue Ceftaroline for bacteremia and Vancomycin [place] no fungal coverage needed, Beta-D glucan positive (false positive?), BAL negative, fungal cultures negative Serenity growing from bronc washing (3) Anemia: macrocytic, down to 6.0 03/06 this is due to marrow failure, suppression from both myeloma and chemotherapy appreciate hematology consultation transfused 2 units 03/06, Hb up to 9.8 today and stable Follow CBC (4) Pneumonia: Chest x-ray with RUPINDER socked in PNA-the source of his sepsis urine legionella antigen positive continue Zithromax 500mg daily x 10 days (started 03/06, final dose will be 03/15) bronchoscopy 03/05, lavage with cultures taken, no growth continue flutter valve breathing is better, down to room air for many days Encourage mobilization Lungs sound clear (5) Atrial fibrillation with rapid ventricular response: Paroxysmal atrial fibrillation with heart rates at times to the 190s converted to sinus rhythm, sinus tachycardia on IV amiodarone continue amiodarone 200mg PO daily continue metoprolol 100mg BID cardiology following Only some atrial ectopy but no A. fib sustained for many days [id number] score is 1 -Appreciate cardiology consultation-recommends against anticoagulation at this time given higher risk for bleeding given multiple myeloma, anemia and worsening thrombocytopenia echo was largely normal (6) CHLOÉ (acute kidney injury): With creatinine elevated at 2.4 on admission and initially improved, but then peaked at 3.07 Cr remains stable at 2.6-2.8 continue to monitor he continues to self diurese, copious amounts of urine Now with hypernatremia which is somewhat concerning-checking urine osmolality as per nephrology Follow urine output Urinalysis on admission with granular casts,'s most likely secondary to ATN from severe sepsis Repeat urinalysis on 03/11 again with granular casts but improving, otherwise contaminated, less protein He has decreased effective arterial volume secondary to hypoalbuminemia, developed anasarca from copious IV fluid administration for rhabdomyolysis which is now improved Also with nonanion gap metabolic acidosis, resolved Follow BMP Continue Friedman catheter for now as per nephrology for close monitoring of urine output in the setting of hypernatremia and CHLOÉ (7) Rhabdomyolysis: CK >72899 on arrival, secondary to prolonged down time. CK increased after admission to 24,000 but is now decreased to 300 after copious IV fluids were given - stopped fluids 03/02 -Friedman in place, closely monitor UOP -Monitor renal function and electrolytes and replace as needed -Appreciate nephrology consultation (8) Acute respiratory failure with hypoxia: Was requiring 3 L nasal cannula and saturations at 99% Secondary to pneumonia and sepsis Now resolved (9) Elevated troponin: Patient denies CP, palpitations. No EKG evidence of ischemia. With acute kidney injury and rhabdomyolysis as well as rapid atrial fibrillation all contributing to myocardial demand ischemia. Did not present with acute coronary syndrome -Troponin peaked at 1.1 and back down again. Appreciate cardiology consultation Echocardiogram without wall motion abnormalities and with preserved EF -Continue ASA 81mg po daily -Continue metoprolol as above (10) Abnormal liver enzymes: Elevated LFTs most likely secondary to sepsis and rhabdomyolysis-now much improved CT abdomen/pelvis with mild hepatic steatosis, normal gallbladder and pancreas. -Also now on amiodarone (11) Multiple myeloma in remission: Patient receiving chemotherapy with Darzalex, last dose was 01/30/2020. Follows with Dr. Potts at the [facility] -LDH was quite elevated at 1000 and Uric acid normal, did not suspect tumor lysis syndrome Continue acyclovir for prophylaxis Follow CBC With multiple lytic bone lesions diffusely on imaging -Future chemotherapy is on hold until stabilized from medical standpoint (12) Hypokalemia: K is persistently low at 2.9 Some due to poor p.o. intake, other may be nephrogenic in origin -Increased replacement orally to 40mEq TID plus further IV replacement today as per nephrology Follow BMP in the morning (13) Hypophosphatemia: Severely low-replaced and resolved Follow phosphorus level (14) CKD (chronic kidney disease): Baseline creatinine is around 1.4-1.7 With CHLOÉ as above -Avoid nephrotoxins -renally dose meds when appropriate -follow BMP (15) HTN (hypertension): Blood pressures are on the low side when he has rapid atrial fibrillation, but now improved after spontaneous conversion to sinus rhythm -Continue holding home HCTZ -Continue metoprolol with hold parameters (16) Fall: Likely secondary to weakness from pneumonia and sepsis CT of the cervical spine, head CT, chest/abdomen/pelvis CT without fractures or acute findings other than PNA With continued left shoulder pain and weakness-consult orthopedic surgery- recommends MRI when medically stable (17) Pancytopenia: Secondary to multiple myeloma and chemotherapy as well as sepsis, possible DIC? Now improving Follow CBC in the morning Transfuse as needed (18) Prediabetes: Hemoglobin A1c elevated at 6.4% Follow Accu-Cheks NovoLog sliding scale insulin (19) Neuropathy: -Continue to hold home gabapentin, doxepin Thought to be secondary to chemotherapy (20) Hypoalbuminemia: Albumin severely low at 1.7, likely secondary to cancer, poor nutrition, and sepsis Follow levels Third spacing but is improving Appreciate dietary consultation Encourage patient to increase p.o. intake (21) Paresthesia of left arm: As above, secondary to significant edema from rhabdomyolysis Now improving with improvement in edema Diuresing -Continue to elevate arm on pillow (22) GERD (gastroesophageal reflux disease): Continue PPI (23) Shoulder weakness: With persistent weakness of the left shoulder, but able to move the distal hand and fingers, suspect some sort of rotator cuff tear during his fall Continues with edema which is improving Doppler of the left upper extremity negative for DVT X-rays negative for fracture of the shoulder -Consult orthopedic surgery for further management appreciated-recommends left shoulder MRI without contrast when medically stable. Could be neuropathy versus rotator cuff tear as per orthopedics. Would not be a good surgical candidate at this time secondary to multiple comorbidities and acute illness (24) Hypernatremia: Sodium rising to 149 as above, with copious urine output Checking urine osmolality Follow BMP (25) DVT prophylaxis: Heparin SQ restarted now that platelets are greater than 50 Disposition- continue PT/OT, plan for rehab, likely ready in the next 2 to 3 days Full code Admission and Anticipated Discharge Date Admission Date: February 29, 2020 Subjective Patient feels tired, not getting much sleep due to interruptions through the night.He denies chest pain or shortness of breath. He seems lethargic today but is conversive and has a flat affect. The orthopedic surgeon came by he reports and told him that he may have a rotator cuff tear and could get an MRI when felt to be safe to do so from a medical standpoint. He is making copious urine and his sodium level has gone up. Remains afebrile. Telemetry with sinus arrhythmia, PACs, rates in the 90s, atrial couplets, PVCs Review of Systems Review of Systems: All systems reviewed & are unremarkable except as noted in HPI & below Physical Exam Constitutional: WD/WN, vitals as above + obese Eyes: + anicteric sclerae Neck: trachea midline, no thyromegaly Respiratory: normal respiratory effort, lungs clear to auscultation Cardiovascular: Rate/Rhythm: regular rate and regular rhythm Heart Sounds: no murmur Vessels: radial pulses present Extremities: + edema (Much improved with less edema of the legs and 1+ left arm) Chest (Breasts): Chest: + vascular access device or port (Port in place on the left, no surrounding erythema) Gastrointestinal (Abdomen): normal bowel sounds, soft, nontender, no hepatosplenomegaly Musculoskeletal: Extremities: no cyanosis and no clubbing No tenderness palpation over left shoulder, edema is less in the left upper arm, still with some edema in the left fingers, able to flex and extend fingers and thumb on the left Neurologic: awake Psychiatric: Orientation: alert and oriented x 3 Affect: + flat affect Genitourinary: Friedman catheter with clear yellow urine Results & Data Results & Data ([facility]) Vital Signs (Past 12 Hours) Vital Signs Temp Pulse Resp BP Pulse Ox 03/11/20 07:33 36.7 C 102 H 19 163/89 H 96 03/11/20 04:21 36.8 C 95 H 20 145/88 H 95 03/10/20 23:39 37.1 C 86 20 159/72 H 96 Laboratory Results 03/11/20 03/11/20 03/11/20 Range/Units 10:10 10:10 07:31 WBC (4.8-10.8) K/uL RBC (4.7-6.1) M/uL Hgb (14.0-18.0) g/dL Hct (42-52) % MCV (80-100) fL MCH (25-34) pg MCHC (32-36) g/dL RDW Std Deviation (36.4-46.3) fL RDW Coeff of Elvira (11.5-14.5) % Plt Count (130-400) K/uL MPV (7.4-10.4) fL Immature Gran % (Auto) % Neut % (Auto) % Lymph % (Auto) % [place] % (Auto) % Eos % (Auto) % Baso % (Auto) % Neut # (Auto) (1.4-6.5) K/uL Lymph # (Auto) (1.2-3.4) K/uL [place] # (Auto) (0.11-0.59) K/uL Eos # (Auto) (0-0.5) K/uL Baso # (Auto) (0-0.2) K/uL Immature Gran # (Auto) (0.00-0.02) K/uL Sodium (136-145) mmol/L Potassium (3.5-5.1) mmol/L Chloride (98-107) mmol/L Carbon Dioxide (21-32) mmol/L Anion Gap (3-11) BUN (7-18) mg/dl Creatinine (0.6-1.4) mg/dl Est Cr Clr Drug Dosing ml/min Est GFR ( Amer) Est GFR (Non-Af Amer) BUN/Creatinine Ratio (10-20) Glucose (70-99) mg/dl POC Glucose 115 H (70-99) mg/dl Calcium (8.5-10.1) mg/dl Phosphorus (2.5-4.9) mg/dl Magnesium (1.8-2.4) mg/dl Total Bilirubin (0.2-1) mg/dl Direct Bilirubin (0-0.2) mg/dl AST (15-37) U/L ALT (12-78) U/L Alkaline Phosphatase (45-117) U/L Total Protein (6.4-8.2) gm/dl Albumin (3.4-5.0) gm/dl Urine Color Yellow Urine Appearance Cloudy A (Clear) Urine pH 5.5 (4.5-7.5) Ur Specific [place] 1.010 (1.000-1.030) Urine Protein 1+ H (Negative) Urine Glucose (UA) Negative (Negative) Urine Ketones Negative (Negative) Urine Blood 2+ H (Negative) Urine Nitrite Negative (Negative) Urine Bilirubin Negative (Negative) Urine Urobilinogen Negative (Negative) Ur Leukocyte Esterase Trace H (Negative) Urine WBC (Auto) 10-30 H (0-5) /hpf Urine RBC (Auto) 5-10 H (0-4) /hpf U Hyaline Cast (Auto) 10-30 H (0-5) /lpf U Epithel Cells (Auto) >30 H (0-5) /lpf Urine Bacteria (Auto) Negative (Negative) Granular Casts 5-10 H (0) /lpf Urine Yeast Not Reportable Urine Osmolality 264 L (500-800) mOsm/kg Antibody ID Referred 03/11/20 03/11/20 03/10/20 Range/Units 05:53 05:53 19:57 WBC 3.56 L (4.8-10.8) K/uL RBC 2.94 L (4.7-6.1) M/uL Hgb 9.8 L (14.0-18.0) g/dL Hct 29.6 L (42-52) % MCV 100.7 H (80-100) fL MCH 33.3 (25-34) pg MCHC 33.1 (32-36) g/dL RDW Std Deviation 65.1 H (36.4-46.3) fL RDW Coeff of Elvira 17.6 H (11.5-14.5) % Plt Count 98 L (130-400) K/uL MPV 12.0 H (7.4-10.4) fL Immature Gran % (Auto) 2.0 % Neut % (Auto) 66.5 % Lymph % (Auto) 25.3 % [place] % (Auto) 5.3 % Eos % (Auto) 0.6 % Baso % (Auto) 0.3 % Neut # (Auto) 2.37 (1.4-6.5) K/uL Lymph # (Auto) 0.90 L (1.2-3.4) K/uL [place] # (Auto) 0.19 (0.11-0.59) K/uL Eos # (Auto) 0.02 (0-0.5) K/uL Baso # (Auto) 0.01 (0-0.2) K/uL Immature Gran # (Auto) 0.07 H (0.00-0.02) K/uL Sodium 149 H (136-145) mmol/L Potassium 2.9 L D (3.5-5.1) mmol/L Chloride 117 H (98-107) mmol/L Carbon Dioxide 24 (21-32) mmol/L Anion Gap 8.0 (3-11) BUN 15 (7-18) mg/dl Creatinine 2.68 H (0.6-1.4) mg/dl Est Cr Clr Drug Dosing 33.1 ml/min Est GFR ( Amer) 28.3 Est GFR (Non-Af Amer) 24.4 BUN/Creatinine Ratio 5.7 L (10-20) Glucose 114 H (70-99) mg/dl POC Glucose 125 H (70-99) mg/dl Calcium 8.1 L (8.5-10.1) mg/dl Phosphorus 2.8 (2.5-4.9) mg/dl Magnesium 1.8 (1.8-2.4) mg/dl Total Bilirubin 0.8 (0.2-1) mg/dl Direct Bilirubin 0.4 H (0-0.2) mg/dl AST 82 H (15-37) U/L ALT 56 (12-78) U/L Alkaline Phosphatase 222 H (45-117) U/L Total Protein 6.6 (6.4-8.2) gm/dl Albumin 1.7 L (3.4-5.0) gm/dl Urine Color Urine Appearance (Clear) Urine pH (4.5-7.5) Ur Specific [place] (1.000-1.030) Urine Protein (Negative) Urine Glucose (UA) (Negative) Urine Ketones (Negative) Urine Blood (Negative) Urine Nitrite (Negative) Urine Bilirubin (Negative) Urine Urobilinogen (Negative) Ur Leukocyte Esterase (Negative) Urine WBC (Auto) (0-5) /hpf Urine RBC (Auto) (0-4) /hpf U Hyaline Cast (Auto) (0-5) /lpf U Epithel Cells (Auto) (0-5) /lpf Urine Bacteria (Auto) (Negative) Granular Casts (0) /lpf Urine Yeast Urine Osmolality (500-800) mOsm/kg Antibody ID Referred 03/10/20 03/10/20 03/10/20 Range/Units 16:16 14:34 11:22 WBC (4.8-10.8) K/uL RBC (4.7-6.1) M/uL Hgb (14.0-18.0) g/dL Hct (42-52) % MCV (80-100) fL MCH (25-34) pg MCHC (32-36) g/dL RDW Std Deviation (36.4-46.3) fL RDW Coeff of Elvira (11.5-14.5) % Plt Count (130-400) K/uL MPV (7.4-10.4) fL Immature Gran % (Auto) % Neut % (Auto) % Lymph % (Auto) % [place] % (Auto) % Eos % (Auto) % Baso % (Auto) % Neut # (Auto) (1.4-6.5) K/uL Lymph # (Auto) (1.2-3.4) K/uL [place] # (Auto) (0.11-0.59) K/uL Eos # (Auto) (0-0.5) K/uL Baso # (Auto) (0-0.2) K/uL Immature Gran # (Auto) (0.00-0.02) K/uL Sodium 145 (136-145) mmol/L Potassium 3.5 D (3.5-5.1) mmol/L Chloride 116 H (98-107) mmol/L Carbon Dioxide 21 (21-32) mmol/L Anion Gap 8.0 (3-11) BUN 17 (7-18) mg/dl Creatinine 2.81 H (0.6-1.4) mg/dl Est Cr Clr Drug Dosing 31.9 ml/min Est GFR ( Amer) 26.7 Est GFR (Non-Af Amer) 23.0 BUN/Creatinine Ratio 5.9 L (10-20) Glucose 118 H (70-99) mg/dl POC Glucose 104 H 110 H (70-99) mg/dl Calcium 8.3 L (8.5-10.1) mg/dl Phosphorus (2.5-4.9) mg/dl Magnesium (1.8-2.4) mg/dl Total Bilirubin (0.2-1) mg/dl Direct Bilirubin (0-0.2) mg/dl AST (15-37) U/L ALT (12-78) U/L Alkaline Phosphatase (45-117) U/L Total Protein (6.4-8.2) gm/dl Albumin (3.4-5.0) gm/dl Urine Color Urine Appearance (Clear) Urine pH (4.5-7.5) Ur Specific [place] (1.000-1.030) Urine Protein (Negative) Urine Glucose (UA) (Negative) Urine Ketones (Negative) Urine Blood (Negative) Urine Nitrite (Negative) Urine Bilirubin (Negative) Urine Urobilinogen (Negative) Ur Leukocyte Esterase (Negative) Urine WBC (Auto) (0-5) /hpf Urine RBC (Auto) (0-4) /hpf U Hyaline Cast (Auto) (0-5) /lpf U Epithel Cells (Auto) (0-5) /lpf Urine Bacteria (Auto) (Negative) Granular Casts (0) /lpf Urine Yeast Urine Osmolality (500-800) mOsm/kg Antibody ID Referred 03/06/20 Range/Units 07:15 WBC (4.8-10.8) K/uL RBC (4.7-6.1) M/uL Hgb (14.0-18.0) g/dL Hct (42-52) % MCV (80-100) fL MCH (25-34) pg MCHC (32-36) g/dL RDW Std Deviation (36.4-46.3) fL RDW Coeff of Elvira (11.5-14.5) % Plt Count (130-400) K/uL MPV (7.4-10.4) fL Immature Gran % (Auto) % Neut % (Auto) % Lymph % (Auto) % [place] % (Auto) % Eos % (Auto) % Baso % (Auto) % Neut # (Auto) (1.4-6.5) K/uL Lymph # (Auto) (1.2-3.4) K/uL [place] # (Auto) (0.11-0.59) K/uL Eos # (Auto) (0-0.5) K/uL Baso # (Auto) (0-0.2) K/uL Immature Gran # (Auto) (0.00-0.02) K/uL Sodium (136-145) mmol/L Potassium (3.5-5.1) mmol/L Chloride (98-107) mmol/L Carbon Dioxide (21-32) mmol/L Anion Gap (3-11) BUN (7-18) mg/dl Creatinine (0.6-1.4) mg/dl Est Cr Clr Drug Dosing ml/min Est GFR ( Amer) Est GFR (Non-Af Amer) BUN/Creatinine Ratio (10-20) Glucose (70-99) mg/dl POC Glucose (70-99) mg/dl Calcium (8.5-10.1) mg/dl Phosphorus (2.5-4.9) mg/dl Magnesium (1.8-2.4) mg/dl Total Bilirubin (0.2-1) mg/dl Direct Bilirubin (0-0.2) mg/dl AST (15-37) U/L ALT (12-78) U/L Alkaline Phosphatase (45-117) U/L Total Protein (6.4-8.2) gm/dl Albumin (3.4-5.0) gm/dl Urine Color Urine Appearance (Clear) Urine pH (4.5-7.5) Ur Specific [place] (1.000-1.030) Urine Protein (Negative) Urine Glucose (UA) (Negative) Urine Ketones (Negative) Urine Blood (Negative) Urine Nitrite (Negative) Urine Bilirubin (Negative) Urine Urobilinogen (Negative) Ur Leukocyte Esterase (Negative) Urine WBC (Auto) (0-5) /hpf Urine RBC (Auto) (0-4) /hpf U Hyaline Cast (Auto) (0-5) /lpf U Epithel Cells (Auto) (0-5) /lpf Urine Bacteria (Auto) (Negative) Granular Casts (0) /lpf Urine Yeast Urine Osmolality (500-800) mOsm/kg Antibody ID Referred PG Care Time/CCT Total # of Minutes Spent Total Time Spent with Patient: Total time spent is greater than 50% in coordination of care (as documented) at patient's floor/unit and/or counseling patient: Coding Level of Care Code 71888 Subseq Hosp Care Lvl 3 Diagnoses Coagulase negative Staphylococcus bacteremia R78.81; B95.7 Sepsis A41.9; R65.20; G93.40 Sepsis acute organ dysfunction status: with acute organ dysfunction Sepsis type: sepsis due to unspecified organism Severe sepsis acute organ dysfunction type: encephalopathy Severe sepsis shock status: without septic shock Anemia D64.9 Pneumonia J18.9 Pneumonia type: due to unspecified organism Atrial fibrillation with rapid ventricular response I48.91 CHLOÉ (acute kidney injury) N17.9 Rhabdomyolysis M62.82 Rhabdomyolysis type: non-traumatic Acute respiratory failure with hypoxia J96.01 Elevated troponin R77.8 Abnormal liver enzymes R74.8 Multiple myeloma in remission C90.01 Hypokalemia E87.6 Hypophosphatemia E83.39 CKD (chronic kidney disease) N18.9 HTN (hypertension) I10 Fall W19.XXXA Pancytopenia D61.818 Prediabetes R73.03 Neuropathy G62.9 Hypoalbuminemia E88.09 Paresthesia of left arm R20.2 GERD (gastroesophageal reflux disease) K21.9 Shoulder weakness R29.898 Hypernatremia E87.0 DVT prophylaxis Z29.9 (1) Rhabdomyolysis Rhabdomyolysis type: non-traumatic Qualified Code(s): M62.82 - Rhabdomyolysis (2) Sepsis Sepsis acute organ dysfunction status: with acute organ dysfunction Sepsis type: sepsis due to unspecified organism Severe sepsis acute organ dysfunction type: encephalopathy Severe sepsis shock status: without septic shock Qualified Code(s): A41.9 - Sepsis, unspecified organism; R65.20 - Severe sepsis without septic shock; G93.40 - Encephalopathy, unspecified (3) Pneumonia Pneumonia type: due to unspecified organism
[2020-03-11] MEDS: AZITHROMYCIN 500 MG in DEXTROSE 5% 250 ML IV SCH (11:50)
--- NOTE | 2020-03-11 12:40 | Nephrology Progress Note ---
Date of Service March 11, 2020 Assessment & Plan (1) Acute kidney injury: CHLOÉ due to rhabdomyolysis and possible ATN. Creatinine stable at 2.7 mg/dL. Polyuria persists. Persistent hypokalemia. Increasing free water deficit. Endorses thirst. Oral fluid encouraged. Metabolic profile demonstrates persistent hypokalemia. Oral replacement with KCl 20 mEq TID increased to 40 mEq TID today. Additional 30 mEq IV provided this AM. Will recheck a metabolic profile this afternoon. Magnesium had been. PO4 acceptable. Urine studies will be updated today, including osmolality. Encourage nutrition, including protein supplements. BP slightly elevated this morning. Asymptomatic in this regard. Defer JAVON/ARB for now in setting of renal recovery. CHLOÉ with rhabdomyolysis, hypoalbuminemia, and intravascular volume depletion with 3rd spacing complicated by underlying nephrosis secondary to multiple myeloma. Medications appropriately dosed for kidney function. 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 s/p 2 u PRBC earlier during admission. (3) Rhabdomyolysis: Last CK remained elevated but improving. Will repeat in the AM. Urine output is acceptable. Continue to document I/O's. (4) CKD (chronic kidney disease): CKD III A3 related to history of multiple myeloma. Baseline creatinine 1.5-1.7 mg/dL. Admission and Anticipated Discharge Date Admission Date: February 29, 2020 Subjective No acute events overnight. Kirt remains very weak. Appetite is poor. A few small loose bowel movements reported overnight. No chest pain or palpitations. Denies significant dyspnea. Remains polyuric. Review of Systems Review of Systems: All systems reviewed & are unremarkable except as noted in HPI & below Constitutional: + fatigue and + weakness Gastrointestinal: A few small loose bowel movements overnight Physical Exam Constitutional: well developed and + obese; no acute distress Eyes: + anicteric sclerae; no corneal abnormality ENMT: Mouth: + dry oral mucous membranes; no oral mucosal abnormality Neck: normal visual inspection, trachea midline and + thick neck Respiratory: no respiratory distress Auscultation: + diminished lung sounds Cardiovascular: Rate/Rhythm: regular rate Heart Sounds: normal S1 and normal S2 Extremities: + edema Gastrointestinal (Abdomen): Inspection/Auscultation: + abdomen distended Percussion/Palpation: abdomen nontender Musculoskeletal: Extremities: no cyanosis and no clubbing Skin: normal turgor; no lesions Neurologic: Motor/Sensory: no tremor and no asterixis Psychiatric: Orientation: alert and oriented x 3 Results & Data ([facility]) Vital Signs (Past 12 Hours) Vital Signs Temp Pulse Resp BP Pulse Ox 03/11/20 11:24 36.7 C 83 16 164/75 H 98 03/11/20 07:33 36.7 C 102 H 19 163/89 H 96 03/11/20 04:21 36.8 C 95 H 20 145/88 H 95 Laboratory Results Laboratory Results - last 24 hr 03/06/20 03/10/20 03/10/20 07:15 14:34 16:16 WBC RBC Hgb Hct MCV MCH MCHC RDW Std Deviation RDW Coeff of Elvira Plt Count MPV Immature Gran % (Auto) Neut % (Auto) Lymph % (Auto) [place] % (Auto) Eos % (Auto) Baso % (Auto) Neut # (Auto) Lymph # (Auto) [place] # (Auto) Eos # (Auto) Baso # (Auto) Immature Gran # (Auto) Sodium 145 Potassium 3.5 D Chloride 116 H Carbon Dioxide 21 Anion Gap 8.0 BUN 17 Creatinine 2.81 H Est Cr Clr Drug Dosing 31.9 Est GFR ( Amer) 26.7 Est GFR (Non-Af Amer) 23.0 BUN/Creatinine Ratio 5.9 L Glucose 118 H POC Glucose 104 H Calcium 8.3 L Phosphorus Magnesium Total Bilirubin Direct Bilirubin AST ALT Alkaline Phosphatase Total Protein Albumin Urine Color Urine Appearance Urine pH Ur Specific [place] Urine Protein Urine Glucose (UA) Urine Ketones Urine Blood Urine Nitrite Urine Bilirubin Urine Urobilinogen Ur Leukocyte Esterase Urine WBC (Auto) Urine RBC (Auto) U Hyaline Cast (Auto) U Epithel Cells (Auto) Urine Bacteria (Auto) Granular Casts Urine Yeast Urine Osmolality Antibody ID Referred 03/10/20 03/11/20 03/11/20 19:57 05:53 05:53 WBC 3.56 L RBC 2.94 L Hgb 9.8 L Hct 29.6 L MCV 100.7 H MCH 33.3 MCHC 33.1 RDW Std Deviation 65.1 H RDW Coeff of Elvira 17.6 H Plt Count 98 L MPV 12.0 H Immature Gran % (Auto) 2.0 Neut % (Auto) 66.5 Lymph % (Auto) 25.3 [place] % (Auto) 5.3 Eos % (Auto) 0.6 Baso % (Auto) 0.3 Neut # (Auto) 2.37 Lymph # (Auto) 0.[address] [place] # (Auto) 0.19 Eos # (Auto) 0.02 Baso # (Auto) 0.01 Immature Gran # (Auto) 0.07 H Sodium 149 H Potassium 2.9 L D Chloride 117 H Carbon Dioxide 24 Anion Gap 8.0 BUN 15 Creatinine 2.68 H Est Cr Clr Drug Dosing 33.1 Est GFR ( Amer) 28.3 Est GFR (Non-Af Amer) 24.4 BUN/Creatinine Ratio 5.7 L Glucose 114 H POC Glucose 125 H Calcium 8.1 L Phosphorus 2.8 Magnesium 1.8 Total Bilirubin 0.8 Direct Bilirubin 0.4 H AST 82 H ALT 56 Alkaline Phosphatase 222 H Total Protein 6.6 Albumin 1.7 L Urine Color Urine Appearance Urine pH Ur Specific [place] Urine Protein Urine Glucose (UA) Urine Ketones Urine Blood Urine Nitrite Urine Bilirubin Urine Urobilinogen Ur Leukocyte Esterase Urine WBC (Auto) Urine RBC (Auto) U Hyaline Cast (Auto) U Epithel Cells (Auto) Urine Bacteria (Auto) Granular Casts Urine Yeast Urine Osmolality Antibody ID Referred 03/11/20 03/11/20 03/11/20 07:31 10:10 10:10 WBC RBC Hgb Hct MCV MCH MCHC RDW Std Deviation RDW Coeff of Elvira Plt Count MPV Immature Gran % (Auto) Neut % (Auto) Lymph % (Auto) [place] % (Auto) Eos % (Auto) Baso % (Auto) Neut # (Auto) Lymph # (Auto) [place] # (Auto) Eos # (Auto) Baso # (Auto) Immature Gran # (Auto) Sodium Potassium Chloride Carbon Dioxide Anion Gap BUN Creatinine Est Cr Clr Drug Dosing Est GFR ( Amer) Est GFR (Non-Af Amer) BUN/Creatinine Ratio Glucose POC Glucose 115 H Calcium Phosphorus Magnesium Total Bilirubin Direct Bilirubin AST ALT Alkaline Phosphatase Total Protein Albumin Urine Color Yellow Urine Appearance Cloudy A Urine pH 5.5 Ur Specific [place] 1.010 Urine Protein 1+ H Urine Glucose (UA) Negative Urine Ketones Negative Urine Blood 2+ H Urine Nitrite Negative Urine Bilirubin Negative Urine Urobilinogen Negative Ur Leukocyte Esterase Trace H Urine WBC (Auto) 10-30 H Urine RBC (Auto) 5-10 H U Hyaline Cast (Auto) 10-30 H U Epithel Cells (Auto) >30 H Urine Bacteria (Auto) Negative Granular Casts 5-10 H Urine Yeast Not Reportable Urine Osmolality 264 L Antibody ID Referred 03/11/20 11:22 WBC RBC Hgb Hct MCV MCH MCHC RDW Std Deviation RDW Coeff of Elvira Plt Count MPV Immature Gran % (Auto) Neut % (Auto) Lymph % (Auto) [place] % (Auto) Eos % (Auto) Baso % (Auto) Neut # (Auto) Lymph # (Auto) [place] # (Auto) Eos # (Auto) Baso # (Auto) Immature Gran # (Auto) Sodium Potassium Chloride Carbon Dioxide Anion Gap BUN Creatinine Est Cr Clr Drug Dosing Est GFR ( Amer) Est GFR (Non-Af Amer) BUN/Creatinine Ratio Glucose POC Glucose 108 H Calcium Phosphorus Magnesium Total Bilirubin Direct Bilirubin AST ALT Alkaline Phosphatase Total Protein Albumin Urine Color Urine Appearance Urine pH Ur Specific [place] Urine Protein Urine Glucose (UA) Urine Ketones Urine Blood Urine Nitrite Urine Bilirubin Urine Urobilinogen Ur Leukocyte Esterase Urine WBC (Auto) Urine RBC (Auto) U Hyaline Cast (Auto) U Epithel Cells (Auto) Urine Bacteria (Auto) Granular Casts Urine Yeast Urine Osmolality Antibody ID Referred PG Care Time/CCT Total # of Minutes Spent Total Time Spent with Patient: Total time spent is greater than 50% in coordination of care (as documented) at patient's floor/unit and/or counseling patient: Coding Level of Care Code 17490 Subseq Hosp Care Lvl 3 Diagnoses Acute kidney injury N17.9 Pancytopenia D61.818 Rhabdomyolysis M62.82 Rhabdomyolysis type: non-traumatic CKD (chronic kidney disease) N18.9 (1) Rhabdomyolysis Rhabdomyolysis type: non-traumatic Qualified Code(s): M62.82 - Rhabdomyolysis
[2020-03-11 15:28] LABS: BUN Creatinine Ratio 5.3 (10-20); Calcium 8.1 mg/dl (8.5-10.1); Creatinine Clr Calc Pharmacy 32.7 ml/min; Est GFR (African American) 27.9; Est GFR (Non-African American) 24.1; Magnesium 1.7 mg/dl (1.8-2.4); Potassium 3.9 mmol/L (3.5-5.1)
[2020-03-11] MEDS: MAGNESIUM SULFATE / D5W 1 GM/100 ML BAG IV SCH ×2 (17:18→19:40)
[2020-03-12] MEDS: CEFTAROLINE FOSAMIL ACETATE 400 MG in SODIUM CHLORIDE 0.9% 250 ML IV SCH ×2 (04:09→16:20)
[2020-03-12] MEDS: HEPARIN SOD 5,000 UNIT/0.5 ML VIAL SQ SCH ×3 (05:25→22:18)
[2020-03-12 07:11] LABS: Albumin Level 1.6 gm/dl (3.4-5.0); BUN Creatinine Ratio 4.5 (10-20); Calcium 8.2 mg/dl (8.5-10.1); Creatinine Clr Calc Pharmacy 31.6 ml/min; Est GFR (African American) 27.2; Est GFR (Non-African American) 23.4; Phosphorus 2.6 mg/dl (2.5-4.9); Potassium 3.5 mmol/L (3.5-5.1)
[2020-03-12 07:27] LABS: Hemoglobin 9.1 g/dL (14.0-18.0); Mean Corpuscular Hemoglobin 32.6 pg (25-34); Mean Corpuscular Hgb Conc 32.5 g/dL (32-36); Mean Corpuscular Volume 100.4 fL (80-100); Mean Platelet Volume 12.2 fL (7.4-10.4); Platelet Count 119 K/uL (130-400); RDW Coefficient of Variation 17.3 % (11.5-14.5); RDW Standard Deviation 63.8 fL (36.4-46.3); Red Blood Count 2.79 M/uL (4.7-6.1)
[2020-03-12 07:28] LABS: Basophils # (auto) 0.01 K/uL (0-0.2); Basophils % (auto) 0.3 %; Eosinophils # (auto) 0.02 K/uL (0-0.5); Eosinophils % (auto) 0.5 %; Immature Granulocytes # (auto) 0.09 K/uL (0.00-0.02); Immature Granulocytes % (auto) 2.4 %; Lymphocytes # (auto) 1.15 K/uL (1.2-3.4); Lymphocytes % (auto) 30.3 %; Monocytes # (auto) 0.21 K/uL (0.11-0.59); Monocytes % (auto) 5.5 %; Neutrophils # (auto) 2.32 K/uL (1.4-6.5); Tear Drop Cells 1+
[2020-03-12] MEDS: METOPROLOL TARTRATE 100 MG TAB PO SCH ×2 (08:52→21:52)
[2020-03-12] MEDS: PANTOprazole 40 MG TAB PO SCH ×2 (08:52→21:53)
[2020-03-12] MEDS: FLUTICASONE PROPIONATE NA SPR 16 GM BTL SCH (08:52)
[2020-03-12] MEDS: ACYCLOVIR 400 MG TAB PO SCH ×2 (08:53→21:54)
[2020-03-12] MEDS: AMIODARONE 200 MG TAB PO SCH (08:53)
[2020-03-12] MEDS: guaiFENesin 600 MG TABCR PO SCH ×2 (08:53→21:52)
[2020-03-12] MEDS: CYANOCOBALAMIN 500 MCG TABLET (VITAMIN B-12) PO SCH (08:53)
[2020-03-12] MEDS: MULTIVITAMIN TAB PO SCH (08:53)
[2020-03-12] MEDS: INSULIN ASPART 100 UNITS/ML 3 ML PEN SC SCH ×4 (08:54→21:52)
[2020-03-12] MEDS: ASPIRIN 81 MG ECTAB PO SCH (10:41)
[2020-03-12] MEDS: POTASSIUM CHLORIDE CRTAB 20 MEQ TABCR PO SCH (10:42)
--- NOTE | 2020-03-12 12:37 | Nephrology Progress Note ---
Date of Service March 12, 2020 Assessment & Plan (1) Acute kidney injury: CHLOÉ due to rhabdomyolysis and possible ATN. Creatinine stable at 2.7 mg/dL. Polyuria persists. Persistent hypokalemia improving with replacement. Stable free water deficit despite thirst and encouraged PO fluids. Will provide IV D5w today @150 ml/hr with a stop at 2 L to assist in correction. Uosm suggests that Kirt is still struggling to concentrate his urine but without significant solute diuresis. Metabolic profile demonstrates persistent hypokalemia. Oral replacement with KCl 40 mEq TID. Magnesium monitored with treatment. PO4 acceptable. Urine studies will be updated today, including osmolality. Encourage nutrition, including protein supplements. BP slightly elevated this morning. Asymptomatic in this regard. Defer JAVON/ARB for now in setting of renal recovery. CHLOÉ with rhabdomyolysis, hypoalbuminemia, and intravascular volume depletion with 3rd spacing complicated by underlying nephrosis secondary to multiple myeloma. Medications appropriately dosed for kidney function. 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 s/p 2 u PRBC earlier during admission. (3) Rhabdomyolysis: Resolved. Last CK 300. Urine output is acceptable. Continue to document I/O's. (4) CKD (chronic kidney disease): CKD III A3 related to history of multiple myeloma. Baseline creatinine 1.5-1.7 mg/dL. Admission and Anticipated Discharge Date Admission Date: February 29, 2020 Subjective No acute events overnight. Kitr remains very weak. He was out of bed to chair with PT/OT this morning. Appetite is poor. No diarrhea. No chest pain or palpitations. Denies significant dyspnea. Remains polyuric. Review of Systems Review of Systems: All systems reviewed & are unremarkable except as noted in HPI & below Physical Exam Constitutional: well developed and + obese; no acute distress Eyes: + anicteric sclerae; no corneal abnormality ENMT: Mouth: + dry oral mucous membranes; no oral mucosal abnormality Neck: normal visual inspection, trachea midline and + thick neck Respiratory: no respiratory distress Auscultation: + diminished lung sounds Cardiovascular: Rate/Rhythm: regular rate Heart Sounds: normal S1 and normal S2 Extremities: + edema Gastrointestinal (Abdomen): Inspection/Auscultation: + abdomen distended Percussion/Palpation: abdomen nontender Musculoskeletal: Extremities: no cyanosis and no clubbing Skin: normal turgor; no lesions Neurologic: Motor/Sensory: no tremor and no asterixis Psychiatric: Orientation: alert and oriented x 3 Results & Data ([facility]) Vital Signs (Past 12 Hours) Vital Signs Temp Pulse Pulse Resp BP Pulse Ox 03/12/20 11:09 36.7 C 83 16 126/79 99 03/12/20 08:00 85 03/12/20 04:24 36.8 C 88 18 151/64 H 95 Laboratory Results Laboratory Results - last 24 hr 03/11/20 03/11/20 03/11/20 14:48 16:10 20:30 WBC RBC Hgb Hct MCV MCH MCHC RDW Std Deviation RDW Coeff of Elvira Plt Count MPV Immature Gran % (Auto) Neut % (Auto) Lymph % (Auto) [place] % (Auto) Eos % (Auto) Baso % (Auto) Neut # (Auto) Lymph # (Auto) [place] # (Auto) Eos # (Auto) Baso # (Auto) Immature Gran # (Auto) Tear Drop Cells Sodium 146 H Potassium 3.9 D Chloride 119 H Carbon Dioxide 20 L Anion Gap 8.0 BUN 14 Creatinine 2.71 H Est Cr Clr Drug Dosing 32.7 Est GFR ( Amer) 27.9 Est GFR (Non-Af Amer) 24.1 BUN/Creatinine Ratio 5.3 L Glucose 139 H POC Glucose 125 H 146 H Calcium 8.1 L Phosphorus Magnesium 1.7 L Albumin Specimen Hemolysis 03/12/20 03/12/20 03/12/20 06:01 06:01 07:26 WBC 3.80 L RBC 2.79 L Hgb 9.1 L Hct 28.0 L MCV 100.4 H MCH 32.6 MCHC 32.5 RDW Std Deviation 63.8 H RDW Coeff of Elvira 17.3 H Plt Count 119 L MPV 12.2 H Immature Gran % (Auto) 2.4 Neut % (Auto) 61.0 Lymph % (Auto) 30.3 [place] % (Auto) 5.5 Eos % (Auto) 0.5 Baso % (Auto) 0.3 Neut # (Auto) 2.32 Lymph # (Auto) 1.15 L [place] # (Auto) 0.21 Eos # (Auto) 0.02 Baso # (Auto) 0.01 Immature Gran # (Auto) 0.09 H Tear Drop Cells 1+ Sodium 149 H Potassium 3.5 Chloride 120 H Carbon Dioxide 24 Anion Gap 4.0 BUN 13 Creatinine 2.77 H Est Cr Clr Drug Dosing 31.6 Est GFR ( Amer) 27.2 Est GFR (Non-Af Amer) 23.4 BUN/Creatinine Ratio 4.5 L Glucose 118 H POC Glucose 129 H Calcium 8.2 L Phosphorus 2.6 Magnesium Albumin 1.6 L Specimen Hemolysis 03/12/20 11:06 WBC RBC Hgb Hct MCV MCH MCHC RDW Std Deviation RDW Coeff of Elvira Plt Count MPV Immature Gran % (Auto) Neut % (Auto) Lymph % (Auto) [place] % (Auto) Eos % (Auto) Baso % (Auto) Neut # (Auto) Lymph # (Auto) [place] # (Auto) Eos # (Auto) Baso # (Auto) Immature Gran # (Auto) Tear Drop Cells Sodium Potassium Chloride Carbon Dioxide Anion Gap BUN Creatinine Est Cr Clr Drug Dosing Est GFR ( Amer) Est GFR (Non-Af Amer) BUN/Creatinine Ratio Glucose POC Glucose 135 H Calcium Phosphorus Magnesium Albumin Specimen Hemolysis PG Care Time/CCT Total # of Minutes Spent Total Time Spent with Patient: Total time spent is greater than 50% in coordination of care (as documented) at patient's floor/unit and/or counseling patient: Coding Level of Care Code 74769 Subseq Hosp Care Lvl 3 Diagnoses Acute kidney injury N17.9 Pancytopenia D61.818 Rhabdomyolysis M62.82 Rhabdomyolysis type: non-traumatic CKD (chronic kidney disease) N18.9 (1) Rhabdomyolysis Rhabdomyolysis type: non-traumatic Qualified Code(s): M62.82 - Rhabdomyolysis
[2020-03-12] MEDS: AZITHROMYCIN 500 MG in DEXTROSE 5% 250 ML IV SCH (12:48)
[2020-03-12] MEDS ORDERED: ZINC SULFATE 220 MG CAPSULE PO SCH (13:45)
--- NOTE | 2020-03-12 14:16 | Hospitalist Progress Note ---
Date of Service March 12, 2020 Assessment & Plan (1) Coagulase negative Staphylococcus bacteremia: 3 out of 4 cultures growing coag negative staph, resistant to oxacillin on 1 set and sensitive on another Was Vancomycin but has now been discontinued intravenously, but he is getting Vanco locks in his port in an effort to save it. Port does not appear infected. Repeat blood cultures from 03/04 remain no growth to date Carly CAMPO was contacted by the ICU team re: antibiotics and duration given his positive blood cultures from 03/01 with two different coag neg staph species (one oxacillin sensitive, one resistant). Dr. Wong recommended discontinuation of zosyn and vanc, and instead treating the bacteremia with IV ceftaroline for 14 days from the first negative blood culture. She also recommended removal of his mediport given he is still febrile (although she was aware he is a bleeding risk given thrombocytopenia and anemia). She agreed with 10 day duration of azithromycin for legionella PNA. Remains afebrile now for many days will plan to keep port for now no septic clots on venous US initial echo showed no vegetations (2) Sepsis: Severe sepsis, septicemia-resolved This patient is a 64yo C male found down at home x24 hours, with acute metabolic encephalopathy, lactic acidosis. Febrile with temperature of 107.8 /tachycardic/tachypneic on arrival. Found with RUPINDER PNA on chest x-ray. Procal elevated at 2.27. Flu negative, Covid negative MRSA swab negative Immunocompromised from multiple myeloma with port in place Blood cultures: 02/28 with coag negative staph, 03/01 with coag negative staph, repeat cultures 03/04 no growth as above With lactic acidosis-lactate elevated at 3.6 on admission and then down to 1.9 Now afebrile as above for many days urine legionella positive, continue Zithromax 500mg daily with close attention to QTc as above x 10 days continue Ceftaroline for bacteremia and Vancomycin [place] no fungal coverage needed, Beta-D glucan positive (false positive?), BAL aggluttinin negative, fungal cultures negative Serenity growing from bronc washing-colonized (3) Anemia: macrocytic, down to 6.0 03/06 this is due to marrow failure, suppression from both myeloma and chemotherapy appreciate hematology consultation transfused 2 units 03/06, Hb up to 9.1 today and stable Follow CBC (4) Pneumonia: Chest x-ray with RUPINDER socked in PNA-the source of his sepsis urine legionella antigen positive continue Zithromax 500mg daily x 10 days (started 03/06, final dose will be 03/15) bronchoscopy 03/05, lavage with cultures taken, no growth continue flutter valve breathing is better, down to room air for many days Encourage mobilization Lungs sound clear (5) Atrial fibrillation with rapid ventricular response: Paroxysmal atrial fibrillation with heart rates at times to the 190s converted to sinus rhythm, sinus tachycardia on IV amiodarone continue amiodarone 200mg PO daily continue metoprolol 100mg BID cardiology following Only some atrial ectopy but no A. fib sustained for many days [id number] score is 1 -Appreciate cardiology consultation-recommends against anticoagulation at this time given higher risk for bleeding given multiple myeloma, anemia and worsening thrombocytopenia echo was largely normal stable for transfer off [facility] (6) CHLOÉ (acute kidney injury): With creatinine elevated at 2.4 on admission and initially improved, but then peaked at 3.07 Cr remains stable at 2.6-2.8 continue to monitor he continues to self diurese, copious amounts of urine Now with hypernatremia which is somewhat concerning-checking urine osmolality as per nephrology which shows not properly diluting urine yet Na+ increasing further Follow urine output Urinalysis on admission with granular casts,'s most likely secondary to ATN from severe sepsis Repeat urinalysis on 03/11 again with granular casts but improving, otherwise contaminated, less protein He has decreased effective arterial volume secondary to hypoalbuminemia, developed anasarca from copious IV fluid administration for rhabdomyolysis which is now improved Also with nonanion gap metabolic acidosis, resolved Follow BMP Continue Friedman catheter for now as per nephrology for close monitoring of urine output in the setting of hypernatremia and CHLOÉ -giving 2L D5W to help keep up with hydration given hypernatremia and polyuria as per Nephro (7) Rhabdomyolysis: CK >82659 on arrival, secondary to prolonged down time. CK increased after admission to 24,000 but is now decreased to 300 after copious IV fluids were given - stopped fluids 03/02 -Friedman in place, closely monitor UOP -Monitor renal function and electrolytes and replace as needed -Appreciate nephrology consultation (8) Acute respiratory failure with hypoxia: Was requiring 3 L nasal cannula and saturations at 99% Secondary to pneumonia and sepsis Now resolved (9) Elevated troponin: Patient denies CP, palpitations. No EKG evidence of ischemia. With acute kidney injury and rhabdomyolysis as well as rapid atrial fibrillation all contributing to myocardial demand ischemia. Did not present with acute coronary syndrome -Troponin peaked at 1.1 and back down again. Appreciate cardiology consultation Echocardiogram without wall motion abnormalities and with preserved EF -Continue ASA 81mg po daily -Continue metoprolol as above (10) Abnormal liver enzymes: Elevated LFTs most likely secondary to sepsis and rhabdomyolysis-now much improved CT abdomen/pelvis with mild hepatic steatosis, normal gallbladder and pancreas. -Also now on amiodarone (11) Multiple myeloma in remission: Patient receiving chemotherapy with Darzalex, last dose was 01/30/2020. Follows with Dr. Potts at the [facility] -LDH was quite elevated at 1000 and Uric acid normal, did not suspect tumor lysis syndrome Continue acyclovir for prophylaxis Follow CBC With multiple lytic bone lesions diffusely on imaging -Future chemotherapy is on hold until stabilized from medical standpoint (12) Hypokalemia: K+ finally improved after many days of replacing Some due to poor p.o. intake, other may be nephrogenic in origin -continue replacement orally but decrease dose to 40mEq BID Follow BMP in the morning (13) Hypophosphatemia: Severely low-replaced and resolved Follow phosphorus level (14) CKD (chronic kidney disease): Baseline creatinine is around 1.4-1.7 With CHLOÉ as above -Avoid nephrotoxins -renally dose meds when appropriate -follow BMP (15) HTN (hypertension): Blood pressures are on the low side when he has rapid atrial fibrillation, but now improved after spontaneous conversion to sinus rhythm -Continue holding home HCTZ -Continue metoprolol with hold parameters (16) Fall: Likely secondary to weakness from pneumonia and sepsis CT of the cervical spine, head CT, chest/abdomen/pelvis CT without fractures or acute findings other than PNA With continued left shoulder pain and weakness-consult orthopedic surgery- recommends MRI when medically stable (17) Pancytopenia: Secondary to multiple myeloma and chemotherapy as well as sepsis, possible DIC? Now improving Follow CBC in the morning Transfuse as needed (18) Prediabetes: Hemoglobin A1c elevated at 6.4% Follow Accu-Cheks NovoLog sliding scale insulin (19) Neuropathy: -Continue to hold home gabapentin, doxepin Thought to be secondary to chemotherapy (20) Hypoalbuminemia: Albumin severely low at 1.7, likely secondary to cancer, poor nutrition, and sepsis Follow levels Third spacing but is improving Appreciate dietary consultation Encourage patient to increase p.o. intake (21) Paresthesia of left arm: As above, secondary to significant edema from rhabdomyolysis Now improving with improvement in edema Diuresing -Continue to elevate arm on pillow (22) GERD (gastroesophageal reflux disease): Continue PPI (23) Shoulder weakness: With persistent weakness of the left shoulder, but able to move the distal hand and fingers, suspect some sort of rotator cuff tear during his fall Continues with edema which is improving Doppler of the left upper extremity negative for DVT X-rays negative for fracture of the shoulder -Consult orthopedic surgery for further management appreciated-recommends left shoulder MRI without contrast when medically stable. Could be neuropathy versus rotator cuff tear as per orthopedics. Would not be a good surgical candidate at this time secondary to multiple comorbidities and acute illness (24) Hypernatremia: Sodium rising to 149 again, with copious urine output Checking urine osmolality again D5W as above kidneys not properly diluting urine Appreciate Nephro management Follow BMP (25) DVT prophylaxis: Heparin SQ Disposition- continue PT/OT, plan for rehab, lnot medically stable yet Downgrade to medical Full code Admission and Anticipated Discharge Date Admission Date: February 29, 2020 Subjective Pt feeling ok. No chest pain or SOB, mild cough. Was OOB to chair x 1 hour today and was quite weak, very difficult for him. No abd pain. Still not eating much Telwe with NSR Review of Systems Review of Systems: All systems reviewed & are unremarkable except as noted in HPI & below Physical Exam Constitutional: WD/WN, vitals as above + obese Eyes: + anicteric sclerae Neck: trachea midline, no thyromegaly Respiratory: normal respiratory effort, lungs clear to auscultation Cardiovascular: Rate/Rhythm: regular rate and regular rhythm Heart Sounds: no murmur Extremities: + edema (Much improved with less edema of the legs and 1+ left arm) Chest (Breasts): Chest: + vascular access device or port (Port in place on the left, no surrounding erythema) Gastrointestinal (Abdomen): normal bowel sounds, soft, nontender, no hepatosplenomegaly Musculoskeletal: Extremities: no cyanosis and no clubbing Skin: + lesion (Multiple clear fluid-filled blisters on left arm and hand as well as across the abdomen) Neurologic: awake Psychiatric: Orientation: alert and oriented x 3 Affect: + flat affect Genitourinary: Friedman catheter with clear yellow urine Lymphatic: no lymphedema Results & Data Results & Data ([facility]) Vital Signs (Past 12 Hours) Vital Signs Temp Pulse Pulse Resp BP Pulse Ox 03/12/20 11:09 36.7 C 83 16 126/79 99 03/12/20 08:00 85 03/12/20 04:24 36.8 C 88 18 151/64 H 95 Laboratory Results 03/12/20 03/12/20 03/12/20 Range/Units 11:06 07:26 06:01 WBC (4.8-10.8) K/uL RBC (4.7-6.1) M/uL Hgb (14.0-18.0) g/dL Hct (42-52) % MCV (80-100) fL MCH (25-34) pg MCHC (32-36) g/dL RDW Std Deviation (36.4-46.3) fL RDW Coeff of Elvira (11.5-14.5) % Plt Count (130-400) K/uL MPV (7.4-10.4) fL Immature Gran % (Auto) % Neut % (Auto) % Lymph % (Auto) % [place] % (Auto) % Eos % (Auto) % Baso % (Auto) % Neut # (Auto) (1.4-6.5) K/uL Lymph # (Auto) (1.2-3.4) K/uL [place] # (Auto) (0.11-0.59) K/uL Eos # (Auto) (0-0.5) K/uL Baso # (Auto) (0-0.2) K/uL Immature Gran # (Auto) (0.00-0.02) K/uL Tear Drop Cells Sodium 149 H (136-145) mmol/L Potassium 3.5 (3.5-5.1) mmol/L Chloride 120 H (98-107) mmol/L Carbon Dioxide 24 (21-32) mmol/L Anion Gap 4.0 (3-11) BUN 13 (7-18) mg/dl Creatinine 2.77 H (0.6-1.4) mg/dl Est Cr Clr Drug Dosing 31.6 ml/min Est GFR ( Amer) 27.2 Est GFR (Non-Af Amer) 23.4 BUN/Creatinine Ratio 4.5 L (10-20) Glucose 118 H (70-99) mg/dl POC Glucose 135 H 129 H (70-99) mg/dl Calcium 8.2 L (8.5-10.1) mg/dl Phosphorus 2.6 (2.5-4.9) mg/dl Magnesium (1.8-2.4) mg/dl Albumin 1.6 L (3.4-5.0) gm/dl Specimen Hemolysis 03/12/20 03/11/20 03/11/20 Range/Units 06:01 20:30 16:10 WBC 3.80 L (4.8-10.8) K/uL RBC 2.79 L (4.7-6.1) M/uL Hgb 9.1 L (14.0-18.0) g/dL Hct 28.0 L (42-52) % MCV 100.4 H (80-100) fL MCH 32.6 (25-34) pg MCHC 32.5 (32-36) g/dL RDW Std Deviation 63.8 H (36.4-46.3) fL RDW Coeff of Elvira 17.3 H (11.5-14.5) % Plt Count 119 L (130-400) K/uL MPV 12.2 H (7.4-10.4) fL Immature Gran % (Auto) 2.4 % Neut % (Auto) 61.0 % Lymph % (Auto) 30.3 % [place] % (Auto) 5.5 % Eos % (Auto) 0.5 % Baso % (Auto) 0.3 % Neut # (Auto) 2.32 (1.4-6.5) K/uL Lymph # (Auto) 1.15 L (1.2-3.4) K/uL [place] # (Auto) 0.21 (0.11-0.59) K/uL Eos # (Auto) 0.02 (0-0.5) K/uL Baso # (Auto) 0.01 (0-0.2) K/uL Immature Gran # (Auto) 0.09 H (0.00-0.02) K/uL Tear Drop Cells 1+ Sodium (136-145) mmol/L Potassium (3.5-5.1) mmol/L Chloride (98-107) mmol/L Carbon Dioxide (21-32) mmol/L Anion Gap (3-11) BUN (7-18) mg/dl Creatinine (0.6-1.4) mg/dl Est Cr Clr Drug Dosing ml/min Est GFR ( Amer) Est GFR (Non-Af Amer) BUN/Creatinine Ratio (10-20) Glucose (70-99) mg/dl POC Glucose 146 H 125 H (70-99) mg/dl Calcium (8.5-10.1) mg/dl Phosphorus (2.5-4.9) mg/dl Magnesium (1.8-2.4) mg/dl Albumin (3.4-5.0) gm/dl Specimen Hemolysis 03/11/20 Range/Units 14:48 WBC (4.8-10.8) K/uL RBC (4.7-6.1) M/uL Hgb (14.0-18.0) g/dL Hct (42-52) % MCV (80-100) fL MCH (25-34) pg MCHC (32-36) g/dL RDW Std Deviation (36.4-46.3) fL RDW Coeff of Elvira (11.5-14.5) % Plt Count (130-400) K/uL MPV (7.4-10.4) fL Immature Gran % (Auto) % Neut % (Auto) % Lymph % (Auto) % [place] % (Auto) % Eos % (Auto) % Baso % (Auto) % Neut # (Auto) (1.4-6.5) K/uL Lymph # (Auto) (1.2-3.4) K/uL [place] # (Auto) (0.11-0.59) K/uL Eos # (Auto) (0-0.5) K/uL Baso # (Auto) (0-0.2) K/uL Immature Gran # (Auto) (0.00-0.02) K/uL Tear Drop Cells Sodium 146 H (136-145) mmol/L Potassium 3.9 D (3.5-5.1) mmol/L Chloride 119 H (98-107) mmol/L Carbon Dioxide 20 L (21-32) mmol/L Anion Gap 8.0 (3-11) BUN 14 (7-18) mg/dl Creatinine 2.71 H (0.6-1.4) mg/dl Est Cr Clr Drug Dosing 32.7 ml/min Est GFR ( Amer) 27.9 Est GFR (Non-Af Amer) 24.1 BUN/Creatinine Ratio 5.3 L (10-20) Glucose 139 H (70-99) mg/dl POC Glucose (70-99) mg/dl Calcium 8.1 L (8.5-10.1) mg/dl Phosphorus (2.5-4.9) mg/dl Magnesium 1.7 L (1.8-2.4) mg/dl Albumin (3.4-5.0) gm/dl Specimen Hemolysis PG Care Time/CCT Total # of Minutes Spent Total Time Spent with Patient: Total time spent is greater than 50% in coordination of care (as documented) at patient's floor/unit and/or counseling patient: Coding Level of Care Code 95078 Subseq Hosp Care Lvl 3 Diagnoses Coagulase negative Staphylococcus bacteremia R78.81; B95.7 Sepsis A41.9; R65.20; G93.40 Sepsis acute organ dysfunction status: with acute organ dysfunction Sepsis type: sepsis due to unspecified organism Severe sepsis acute organ dysfunction type: encephalopathy Severe sepsis shock status: without septic shock Anemia D64.9 Pneumonia J18.9 Pneumonia type: due to unspecified organism Atrial fibrillation with rapid ventricular response I48.91 CHLOÉ (acute kidney injury) N17.9 Rhabdomyolysis M62.82 Rhabdomyolysis type: non-traumatic Acute respiratory failure with hypoxia J96.01 Elevated troponin R77.8 Abnormal liver enzymes R74.8 Multiple myeloma in remission C90.01 Hypokalemia E87.6 Hypophosphatemia E83.39 CKD (chronic kidney disease) N18.9 HTN (hypertension) I10 Fall W19.XXXA Pancytopenia D61.818 Prediabetes R73.03 Neuropathy G62.9 Hypoalbuminemia E88.09 Paresthesia of left arm R20.2 GERD (gastroesophageal reflux disease) K21.9 Shoulder weakness R29.898 Hypernatremia E87.0 DVT prophylaxis Z29.9 (1) Sepsis Sepsis acute organ dysfunction status: with acute organ dysfunction Sepsis type: sepsis due to unspecified organism Severe sepsis acute organ dysfunction type: encephalopathy Severe sepsis shock status: without septic shock Qualified Code(s): A41.9 - Sepsis, unspecified organism; R65.20 - Severe sepsis without septic shock; G93.40 - Encephalopathy, unspecified (2) Pneumonia Pneumonia type: due to unspecified organism (3) Rhabdomyolysis Rhabdomyolysis type: non-traumatic Qualified Code(s): M62.82 - Rhabdomyolysis
[2020-03-12] MEDS: DEXTROSE 5% 1,000 ML IV SCH ×2 (14:41→22:54)
[2020-03-12] MEDS ORDERED: RAPID SEQUENCE INDUCTION BAG ONE (17:15)
--- NOTE | 2020-03-12 17:28 | Procedure Note ---
Procedure Note Date of Service March 12, 2020 INTUBATION PROCEDURE NOTE: Attending: Dr Mirta Alvarado MD Patient was evaluated and plan to intubate was made for cardiac arrest. Sedative agent used: Etomidate 20 mg Paralysis agent used: Rocuronium 30 mg Emergent consent was implied given patients rapidly declining clinical status and need for airway protection. The patient was prepared in the appropriate fashion. The patient was easily pre-oxygenated by using [id number] ventilation. With help of glide scope grade 1 vocal cords were visualized and 7.5 [place] ETT was introduced on first attempt to 24 cm at the lip. The stylette was removed and balloon was inflated with 10mL of air. Appropriate Colorimetric change was appreciated for at least 10 breaths. Bilateral chest rise and breath sounds were appreciated without air sounds in the epigastrium. Patient tolerated the procedure well and there were no immediate complications. Chest Xray to follow for confirming placement. Coding CPT Codes Resuscitation - Resuscitation: [id number] Endotracheal Intubation, emergency ([id number]) [facility] [place] (Charges) Resuscitation Resuscitation: 32745 Endotracheal Intubation, emergency
[2020-03-12] MEDS ORDERED: PROPOFOL IV EMULSION 10 MG/ML 100 ML VIAL IV ONE (17:48)
[2020-03-12] MEDS ORDERED: STAT IV Infusion **Titration per Protocol STA ×3 (17:53→18:22)
[2020-03-12] MEDS ORDERED: NOREPINEPHRINE BIT INJ 8 MG in DEXTROSE 5% 500 ML IV SCH (18:00)
[2020-03-12] MEDS ORDERED: PROPOFOL BOLUS FROM BAG IV PRN (18:09)
--- NOTE | 2020-03-12 18:16 | Procedure Note ---
Procedure Note Date of Service March 12, 2020 Procedure: Inserting ultrasound-guided central online content editor: Dr. Mirta Alvarado Indication: Hypotension. Consent: Emergent Anesthesia: 1% lidocaine without epinephrine local. Procedure: Consent was verified and timeout performed. Appropriate imaging studies were reviewed prior to the procedure. Under aseptic and sterile condition, right IJ vein was accessed under direct ultrasound guidance. Guidewire was confirmed to be within the lumen of vein with the help of ultrasound. Catheter was introduced via Seldinger technique. Guide a wire was removed. Good non-pulsatile blood flow was appreciated from all the ports. The catheter was placed at 16 cm and sutured in place. BioPatch was applied to the catheter and a sterile Tegaderm dressing was applied over the catheter with careful attention to sterility. Lung sliding was appreciated post procedure with the help ultrasound. Chest x-ray to follow Patient tolerated the procedure well. Blood loss: Less than 2 cc Complications: None Coding CPT Codes Tubes, Drains, and Vasc Access - Tubes, Drains, and Vasc Access: [id number] Place catheter in vein superior or inferior vena cava ([id number]) Tubes, Drains, and Vasc Access - Tubes, Drains, and Vasc Access: [id number] Ultrasound Guidance For Vascular ([id number]) [facility] [place] Procedure Codes (Charges) Tubes, Drains, and Vasc Access Procedure 1: Tubes, Drains, and Vasc Access: [id number] Place catheter in vein superior or inferior vena cava Procedure 2: Tubes, Drains, and Vasc Access: [id number] Ultrasound Guidance For Vascular
[2020-03-12] MEDS ORDERED: LACTATED RINGER'S 1,000 ML IV ONE (18:26)
--- NOTE | 2020-03-12 18:29 | Critical Care Consultation ---
Date of Consultation March 12, 2020 Assessment & Plan (1) Atrial fibrillation with rapid ventricular response: 64-year-old with a complicated past medical history of multiple myeloma on chemotherapy, A. fib with not on antianticoagulation, was admitted to the ICU on this admission for sepsis from bacteremia, left upper lobe pneumonia as well as rhabdomyolysis. He was hemodynamically stable and successfully downgraded. On 03/12/2020 he had CODE BLUE frequently transferred to ICU Neurologic: Intubated Sedated Pulmonary: -- VDRF Secondary to cardiac arrest Continue with ventilatory support Keep RASS -1 Daily sedation holidays and SBT's Chlorhexidine mouthwash Cardiovascular: --Cardiac arrest Follow-up troponin Follow-up EKG --A. fib Not on any anticoagulation due to high risk of bleeding Continue with rate control Gastrointestinal: -- Acute blood loss anaemia Rule out GI bleed Type and screen Transfuse as needed to keep hemoglobin greater than 7, transfuse 1 unit PRBC Monitor H&H Consult GI Renal: --CHLOÉ on CKD Likely secondary rhabdomyolysis with a component of ATN Currently in polyuric phase Monitor BUN/creatinine Avoid nephrotoxic medication --Hypernatremia with hyperchloremia Replace with free water Infectious disease: --Septic shock with coagulase-negative staph bacteremia Patient still spiking fevers Vancomycin has been discontinued, patient is getting Vanco locks to save the port. I think the port might need to come out if the blood culture is positive and he still spiking fever. On IV ceftaroline --Legionella pneumonia Total 10 days of azithromycin Hematologic: --Acute blood loss anemia Plan as above --Multiple myeloma On chemotherapy as an outpatient Endocrine: Hyperglycemia protocol as per ICU Lines and tubes: Right IJ, Friedman catheter, left Port-A-Cath VTE prophylaxis: ICDs GI prophylaxis: Protonix CODE STATUS: Full code Plan: Follow-up lactate, follow-up ABG. Based on the ABG will decide whether the patient will need VQ scan or not. Follow-up CMP Repeat H&H at 4 hours if it is trending down transfuse Hold heparin. I have personally spent 65 minutes of critical care time in the direct management of this patient. This is a life/limb threatening event. This includes time spent evaluating patient, direct bedside care, chart review, placing orders, interpretation of diagnostic studies, discussion with consultants, patient, and family members, as well as other required patient management activities. This time is exclusive of all separately billable procedures, and teaching time and separate from and in addition to any other critical care service time. Please note the above document was generated using voice recognition software. It may contain grammatical, syntax or spelling errors. History of Present Illness Attending Physician: Tamiko Marion MD History of Present Illness 64-year-old male history of multiple myeloma on chemotherapy and was admitted to the ICU initially after being found on the floor at his home, on this admission for sepsis he also developed A. fib with RVR but he was not considered a candidate for anticoagulation given his high risk of bleeding. He had vasopressor support in the beginning. Was also started on amiodarone drip at that time. Amiodarone drip was discontinued later on because of prolonged QT. The left upper lobe pneumonia which the patient has was found to be Legionella. Patient was also found to be in rhabdomyolysis on the ICU which has since resolved. Patient blood culture also grew coagulase-negative staph oxacillin sensitive. Today on the floor there was a CODE BLUE called. The patient was having bowel movement he suddenly became unresponsive with no pulse CPR was initiated he got 1 dose of epi patient got ROSC. At that time I was present in the room. He was still obtunded. Plan was to intubate the patient. He was successfully intubated. Patient was looking very pale. Blood pressure just prior to intubation was systolic in the 130s and diastolic in the 70s. With heart rate of 120. Patient was breathing agonal. Patient has been spiking fever. History was obtained from previous records. Allergies Allergy/AdvReac Type Severity Reaction Status Date / Time epinephrine Allergy Intermediate STATES Verified 10/30/19 15:37 GETS A "WARNER" levofloxacin Allergy Intermediate RASH Verified 02/29/20 22:23 Sulfa (Sulfonamide Allergy Intermediate Rash Verified 02/29/20 22:24 Antibiotics) house dust Allergy Unknown Itchy Verified 02/29/20 22:24 Eye(s) Home Medications Home Medications Medication Instructions Recorded Confirmed Type Calcium 600 + D(3) 1 cap PO QAM 08/07/18 02/29/20 History acyclovir 400 mg PO BID 08/07/18 02/29/20 History aspirin 81 mg PO QAM 08/07/18 02/29/20 History cyanocobalamin (vitamin B-12) 1,000 mcg PO QAM 08/07/18 02/29/20 History [Vitamin B-12] gabapentin 300 mg PO TID 08/07/18 02/29/20 History guaifenesin [Mucinex] 600 mg PO Q12H PRN 08/07/18 02/29/20 History metoprolol tartrate 50 mg PO TID 08/07/18 02/29/20 History omega 5-oez-zty-fish oil [Fish Oil] 2 cap PO QAM 08/07/18 02/29/20 History pantoprazole 40 mg PO BID 08/07/18 02/29/20 History ascorbic acid (vitamin C) 500 mg 500 mg PO QAM cap 02/23/19 02/29/20 History capsule dexamethasone 4 mg tablet See Rx Instructions .ROUTE 02/23/19 02/29/20 History .COMPLEX tab hydrochlorothiazide 12.5 mg PO QAM 06/08/19 02/29/20 History potassium chloride 20 meq PO QAM 06/08/19 02/29/20 History doxepin 100 mg capsule 100 mg PO HS #90 cap 02/25/20 02/29/20 Rx acetaminophen [Tylenol Extra 500 mg PO Q6H PRN 02/29/20 02/29/20 History Strength] cetirizine 10 mg PO BID PRN 02/29/20 02/29/20 History cod liver oil 1 cap PO DAILY 02/29/20 02/29/20 History docusate sodium [Colace] 100 mg PO DAILY PRN 02/29/20 02/29/20 History flaxseed oil 1 ea MISCELLANEOUS DAILY 02/29/20 02/29/20 History fluticasone propionate [Flonase] 2 spray INTRANASAL DAILY 02/29/20 02/29/20 History Patient History Medical History (Updated 03/11/20 @ 10:50 by Tamiko Marion MD) Acute kidney injury CKD (chronic kidney disease) Constipation GERD (gastroesophageal reflux disease) HTN (hypertension) Multiple myeloma Multiple myeloma Neuropathy BL FOOT; 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 CANCER TREATMENT Pancytopenia Paroxysmal atrial fibrillation Prediabetes Seasonal allergies Severe sepsis Surgical History History of bone marrow biopsy History of cataract surgery BL History of colonoscopy History of incision and drainage CYST - RT GROIN History of stem cell transplant History of surgery CYST REMOVED FROM COCCYX 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; 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 Family History Family/Other Family history of diabetes mellitus Social History Smoking Status: Never smoker Second Hand Exposure: No; Do You Dip or Chew Tobacco: No; Hx Alcohol Use: Yes Alcohol type: wine Hx Substance Use: No Preferred Language: Latvian Communication Ability: Effective Maintenance Mechanic Required: No Beliefs That Will Affect Care: None marital status: Single Current Living Situation: Alone Other Information That Helps Us Care for You: No Feels Safe at Home: Yes Safety Concerns: Feels Safe At This Time Assistive Devices: None Review of Systems Review of Systems: Unobtainable due to cognitive status and Unobtainable due to endotracheal tube Physical Exam Physical Exam: Constitutional: No acute distress HEENT: PERRLA, positive ETT, pale conjunctiva Respiratory system: Decreased air entry bilaterally, no wheeze, no rhonchi, positive crackles bilaterally CVS: S1-S2 positive, left-sided Port-A-Cath Abdomen: Soft, nontender, nondistended, positive bowel sounds x4, obese Extremities: +1 pulses bilaterally radialis/ dorsalis pedis, no cyanosis, positive edema Neuro: Patient was moving all extremities actively just prior to intubation Psych: Unable to assess G/U: Positive Friedman Skin: no rashes, warm and dry Lymphatic: no cervical or axillary lymphadenopathy Results & Data Results & Data ([facility]) Vital Signs (Past 12 Hours) Vital Signs Temp Pulse Pulse Resp BP BP Pulse Ox 03/12/20 18:00 38.4 C H 121 H 20 86/52 L 100 03/12/20 17:50 38.3 C H 123 H 21 85/52 L 100 03/12/20 17:45 38.3 C H 126 H 20 89/61 L 100 03/12/20 17:42 38.2 C H 127 H 20 89/61 L 100 03/12/20 17:35 38.0 C H 132 H 20 98/62 L 96 03/12/20 15:51 36.8 C 96 H 20 146/67 H 99 03/12/20 11:09 36.7 C 83 16 126/79 99 03/12/20 08:00 85 03/12/20 18:38 Coding Level of Care Code Critical Care 1st 30-74 mins Diagnoses Atrial fibrillation with rapid ventricular response I48.91 Time Spent (min) 65
[2020-03-12] MEDS: propofoL 1,000 MG/100 ML VIAL IV SCH ×2 (18:30→22:56)
[2020-03-12] MEDS ORDERED: fentaNYL DRIP 1,250 MCG/250 ML BAG IV SCH (18:30)
[2020-03-12 18:48] LABS: Hematocrit (blood only) 23.1 % (42-52); Hemoglobin 7.3 g/dL (14.0-18.0); Mean Corpuscular Hemoglobin 32.9 pg (25-34); Mean Corpuscular Volume 104.1 fL (80-100); Mean Platelet Volume 11.1 fL (7.4-10.4); Nucleated RBC # (auto) 0.04 K/uL (0-0); Nucleated RBC % (auto) 0.6 %; Platelet Count 176 K/uL (130-400); RDW Coefficient of Variation 17.5 % (11.5-14.5); RDW Standard Deviation 66.3 fL (36.4-46.3); Red Blood Count 2.22 M/uL (4.7-6.1); White Blood Count 6.51 K/uL (4.8-10.8)
--- NOTE | 2020-03-12 18:54 | XRay Report ---
XR chest 1V portable HISTORY: central line placed COMPARISON: Chest 03/06/2020. FINDINGS: Left upper lobe consolidation has slightly improved. A left subclavian Port-A-Cath which te rminates at the proximal SVC. Interval placement of right jugular central venous catheter which also terminates in the SVC. Endotracheal tube terminates 4.3 cm from the sky. There is an additional tu be which is looped over the neck. If this represents a nasogastric tube should be removed. No pneumot horax. No pleural effusions. The heart is normal in size. IMPRESSION: 1. There is a tube which is looped in the region of the neck. This could be related to the endotrache al tube. However, if there has been a nasogastric tube placed, then this should be removed. 2. Slight improvement in the left upper lobe consolidation. 3. The remaining lines/tubes appear in good position. 4. No pneumothorax. ACT 112: Negative or not required by law. Electronically signed by: Keyshawn Gtz M.D. 03/12/2020 6:53 PM
[2020-03-12 19:05] LABS: Albumin Level 1.4 gm/dl (3.4-5.0); BUN Creatinine Ratio 3.9 (10-20); Calcium 7.6 mg/dl (8.5-10.1); Creatinine Clr Calc Pharmacy 28.8 ml/min; Est GFR (African American) 24.3; Est GFR (Non-African American) 20.9; Potassium 3.8 mmol/L (3.5-5.1)
[2020-03-12 19:07] LABS: Mean Corpuscular Hgb Conc 31.6 g/dL (32-36)
[2020-03-12 19:09] LABS: Anisocytosis Present; Basophils # (auto) 0.01 K/uL (0-0.2); Basophils % (auto) 0.2 %; Eosinophils # (auto) 0.02 K/uL (0-0.5); Eosinophils % (auto) 0.3 %; Immature Granulocytes # (auto) 0.15 K/uL (0.00-0.02); Immature Granulocytes % (auto) 2.3 %; Lymphocytes # (auto) 1.72 K/uL (1.2-3.4); Lymphocytes % (auto) 26.4 %; Monocytes # (auto) 0.33 K/uL (0.11-0.59); Monocytes % (auto) 5.1 %; Neutrophils # (auto) 4.28 K/uL (1.4-6.5); Neutrophils % (auto) 65.7 %; Polychromasia 1+
[2020-03-12 19:09] LABS: iSTAT Allen Test Pass; iSTAT Art Bld Gas pCO2 Correct 56 mmHg (35-46); iSTAT Art Bld Gas pH Corrected 7.121 (7.35-7.45); iSTAT Arterial Blood Gas HCO3 18 meg/L (19-24); iSTAT Arterial Blood Gas pCO2 53 mmHg (35-46); iSTAT Arterial Blood Gas pH 7.14 (7.35-7.45); iSTAT Arterial Blood Gas pO2 < 32 mmHg (80-95); iSTAT Arterial Blood Gas pO2 C 23; iSTAT Carbon Dioxide 20 mmol/L (24-31); iSTAT FiO2 100 %; iSTAT Hematocrit 30 % (42-52); iSTAT Hemoglobin 10.2 g/dl (14.0-18.0); iSTAT Site R Radial; iSTAT Sodium 141 mmol/L (135-144)
[2020-03-12 19:14] LABS: Albumin Globulin Ratio 0.3 (0.9-2); Bilirubin,Total 0.5 mg/dl (0.2-1); Globulin 4.3 gm/dl (2.5-4.0); Total Protein 5.7 gm/dl (6.4-8.2); Troponin I 0.174 ng/ml (0-0.045)
--- NOTE | 2020-03-12 19:46 | Procedure Note ---
Procedure Note Date of Service March 12, 2020 Procedure: Femoral Arterial Line Placement Attending: Dr. Alvarado APC: Wayne Benjamin PA-C Indication: Central Drug Administration, Poor Venous Access, Multiple Lab Draws Necessary, etc. Anesthesia: Lidocaine 1% Emergent consent implied in the setting of status post PEA arrest requiring clos e hemodynamic monitoring, vasopressor support, frequent ABGs, etc. A time-out was completed verifying correct patient, procedure, site, positioning, and implants(s) or special equipment if applicable. Patients RIGHT Groin was cleansed and draped in the typical sterile fashion using Chloraprep. The Femoral Vein and Femoral Artery were identified using ultrasound. The superficial tissue was anesthetized using 3.0 mL of 1% lidocaine without epinephrine under direct visualization with the ultrasound. After adequate anesthetization was achieved, the Femoral Artery was cannulated under direct ultrasound guidance using an introducer needle on a syringe. Good arterial blood return was maintained prior to removal of syringe from introducer needle. Using Seldinger Technique, a guide wire was advanced through the introducer needle without resistance. The introducer needle was removed and ultrasound images were obtained of the guide wire within the Femoral Vein and saved to the patients medical record. A 20 gauge arterial catheter was advanced into the vessel without resistance. The guide wire was removed intact from the catheter without issue. Line was attached to appropriate transducer tubing. The catheter was placed at the hub and sutured in place. BioPatch was applied to the catheter and a sterile Tegaderm dressing was applied over the catheter with careful attention to sterility. Patient tolerated procedure well. No immediate complications were met. Images obtained are saved for permanent record Procedural Ultrasound Guidance: Procedure Date: 03/12/2020 Indication: Pressors, frequent ABGs, Poor peripheral access. Attending: Dr. Alvarado APC: Wayne Benjamin PA-C Artery AND Vein visualized: YES Compressible Vein: YES Guidewire or Short Catheter seen in artery prior to catheter placement: YES Line confirmed in Artery with ultrasound: YES Images obtained are saved for permanent record. Coding CPT Codes Tubes, Drains, and Vasc Access - Tubes, Drains, and Vasc Access: [id number] Place Catheter In Artery ([id number]) Tubes, Drains, and Vasc Access - Tubes, Drains, and Vasc Access: [id number] Ultrasound Guidance For Vascular ([id number]) [facility] Procedure Codes (Charges) Tubes, Drains, and Vasc Access Procedure 3: Tubes, Drains, and Vasc Access: [id number] Place Catheter In Artery Procedure 4: Tubes, Drains, and Vasc Access: [id number] Ultrasound Guidance For Vascular
[2020-03-12 20:05] LABS: iSTAT Art Bld Gas pCO2 Correct 33 mmHg (35-46); iSTAT Art Bld Gas pH Corrected 7.382 (7.35-7.45); iSTAT Arterial Blood Gas HCO3 19 meg/L (19-24); iSTAT Arterial Blood Gas pCO2 31 mmHg (35-46); iSTAT Arterial Blood Gas pO2 374 mmHg (80-95); iSTAT Arterial Blood Gas pO2 C 381; iSTAT Carbon Dioxide 20 mmol/L (24-31); iSTAT FiO2 100 %; iSTAT Hematocrit 18 % (42-52); iSTAT Hemoglobin 6.1 g/dl (14.0-18.0); iSTAT Potassium 3.8 mmol/L (3.3-5.0); iSTAT Site Art Line; iSTAT Sodium 146 mmol/L (135-144)
[2020-03-12] MEDS ORDERED: LACTATED RINGER'S 500 ML IV ONE (20:10)
[2020-03-12] MEDS ORDERED: SODIUM CHLORIDE 0.9% 250 ML IV PRN ×2 (20:10→20:31)
--- NOTE | 2020-03-12 20:42 | Communication Note ---
Date of Service: March 12, 2020 I assumed care of patient after 7 PM. RIGHT femoral arterial line was placed. Please see separate note. OG was placed as well. Orders were placed to CT chest as well as abdomen pelvis secondary to drop in H&H status post PEA arrest. I did receive a phone call from radiologist who reports concerning findings of new large RIGHT-sided intra-abdominal hematoma which is retroperitoneal. Orders had been previously placed to transfuse 2 units. This is complicated by the fact that the patient has a prior history of stem cell transplant x2 and previ ous blood has had to come from [facility] out of [facility]. Thankfully, we have 2 units of irradiated blood on hold for the patient. I spoke with blood bank who will prepare the units. 2207: I spoke with on-call general surgery. He agrees with transfer to appropriate facility with need for possible intervention radiation as well as more robust blood supply. 2210: I spoke with Dr. Quigley at [facility]. Explained current circumstances and wish to transfer to facility. After lengthy conversation. He does agree to accept patient in transfer. He does suggest that I reach out to the patient's nurse contacts and explain dire situation given the patient's underlying comorbidities and recent arrest as well as RP bleed. Additionally, repeat COVID-19 testing was necessary per [facility] policy prior to transfer. Order was placed for COVID-19 rapid. 224: Attempted to call Sister (Zarina Killian) @ listed number in chart to no answer. 224: I reached out to Christiana Samuel ([phone])/( - CELL - Preferred). She acknowledges that most recently during this hospitalization, she and the patient's sister Chari Killian have been assigned to make medical decisions for the patient. She is uncertain of extended wishes of the patient at this time and did not wish to make any decisions regarding continuation of care versus comfort measures if felt appropriate without speaking with Chari. I offered to reach out to Chari to explain situation. She provided me home phone contact. I will be in touch with Chari for any changes. 2250: Received a call back from Dr. Quigley regarding further questions with regard to patient's care. 2257: Called sister Zarina ([phone]). Had a lengthy discussion regarding today's events as well as concern with RP bleed and possible need for intervention versus surgery versus limitations at this institution. We did discuss that she has been assigned medical decision making in conjunction with Christiana. At this point, there has been no discussion regarding end-of-life wishes, whether the patient would want chronic hemodialysis, or other long-term care decisions. She does acknowledge that she understands that this may be decision she would need to make in the next few days. After our discussion, ultimately she wishes for the patient to be transferred to [place] to allow for their assessment with the caveat that she would be willing to reassess transition to comfort measures only if in the event that it was felt the patient was progressing to nonsurvivable state and if costs of procedure intervention outweigh the benefits. She will reach out to Christiana paul to discuss ongoing care. I informed her that I would contact her when we receive bed assignment from [facility]. 2328: Spoke with Christiana. She and Zarina are in agreement. Will proceed with transfer as previously discussed. 2342: COVID-19 PCR NEGATIVE. 2243: Contacted [facility] and provided NEGATIVE results to transfer nurse. Confirmed Tresa to fly. Will call back w/ ETA. 0009: Called from [facility] with bed assignment. Cindy Patel to call w/ ETA. 0011: Called Christiana to update her w/ bed assignment at [facility] (SICU [id number]) I have personally spent 85 minutes of critical care time in the direct management of this patient. This is a life/limb threatening event. This includes time spent evaluating patient, direct bedside care, chart review, placing orders, interpretation of diagnostic studies, discussion with consultants, patient, and family members, as well as other required patient management a ctivities. This time is exclusive of all separately billable procedures, and teaching time and separate from and in addition to any other critical care service time. Coding Level of Care Code Critical Care ea addt'l 30 min Time Spent (min) 85
[2020-03-12 20:49] LABS: Hematocrit (blood only) 21.2 % (42-52); Hemoglobin 6.9 g/dL (14.0-18.0)
[2020-03-12] MEDS ORDERED: POTASSIUM CHLORIDE CRTAB 20 MEQ TABCR PO SCH (21:00)
--- NOTE | 2020-03-12 21:37 | CT Scan Report ---
CT chest wo con, CT abd pelvis wo con CT DOSE: 2354.55 mGy.cm HISTORY: Status post cardiac arrest. TECHNIQUE: Multiaxial CT images of the chest, abdomen, and pelvis were performed without contrast. A dose lowering technique was utilized adhering to the principles of ALARA. COMPARISON: Chest CT and abdomen pelvis CT 02/29/2020. FINDINGS: No change in the multiple chronic pgpd-ya-[id number] compression deformities seen throughout the majority thoracic spine. This most pronounced at T12. No associated retropulsion. There are again noted innumerable small lytic lesions seen scattered throughout the visualized osseous structures co nsistent with the patient's history of multiple myeloma. A few old bilateral rib fractures. There are acute fractures within the anterior bilateral anterior third, fourth fifth, and sixth ribs. There is also an acute nondisplaced right anterior second rib fracture. This may be due to the recent chest c ompressions. There is a right jugular central venous catheter terminates at the SVC. Nasogastric tube terminates in the stomach. Endotracheal tube terminates 3.5 cm from the sky. No pericardial effus ion. The heart is normal in size. Small left and trace right pleural effusions. No mediastinal hemato ma. A left subclavian Port-A-Cath terminates at the proximal SVC. No pneumothorax. The central airway s are patent. Mild respiratory motion artifact. Dense consolidation involving the left upper lobe as it progressed. This likely represents a pneumonia. No mediastinal or hilar lymphadenopathy. Normal ca liber thoracic aorta. Abdomen/pelvis CT: No pneumoperitoneum. No pneumatosis. Innumerable lytic lesions seen scattered thro ughout the visualized osseous structures consistent with patient's history of multiple myeloma. Bilat eral anterior rib fractures are better appreciated on the same day chest CT. Small fat-containing umb ilical hernia. Small fat-containing left inguinal hernia. The bladder is decompressed by a Friedman cath eter. There are small extrapleural soft tissue nodules seen within the right posterior hemithorax ant erior to the right lower ribs. These could represent small plasmacytomas. Mild hepatic steatosis. The unenhanced pancreas, spleen, adrenal glands, and left kidney are within normal limits. Punctate ston e within the gallbladder. There is a 1 cm hypodense lesion within the right kidney. This is incomplet justo characterized on this noncontrast study. No hydronephrosis. No retroperitoneal lymphadenopathy. N ormal caliber abdominal aorta. Interval development of a large right-sided intra-abdominal hematoma m easuring 15 x 8 x 7 cm in size. This is primarily retroperitoneal. However, there are a few intraperi toneal components of hemorrhage identified. This is most pronounced within the right upper quadrant w here there is a small amount of perihepatic hemorrhage. There is also small amount of intraperitoneal hemorrhage obscuring the appendix and distal ileal loops. This hematoma results in mild anterior dis placement of the cecum and ascending colon. This may represent mesenteric/omental injury. No extralum inal gas to suggest a bowel injury. There is also right flank subcutaneous contusion. There is a part ially visualized right common femoral catheter. IMPRESSION: 1. Bilateral anterior rib fractures as described above. No pneumothorax. 2. Satisfactory support line placement. 3. Interval development of a large right-sided intra-abdominal hematoma measuring 15 x 8 x 7 cm in si ze. This is primarily retroperitoneal. However, there are a few intraperitoneal components of hemorrh age identified. This is most pronounced within the right upper quadrant where there is a small amount of perihepatic hemorrhage. There is also small amount of intraperitoneal hemorrhage obscuring the ap pendix and distal ileal loops. This hematoma results in mild anterior displacement of the cecum and a scending colon. This may represent mesenteric/omental injury. No extraluminal gas to suggest a bowel injury. 4. Small left and trace right effusions. 5. Innumerable scattered lytic lesions seen throughout the visualized osseous structures consistent w ith the patient's known history of multiple myeloma. 6. Additional findings as described above. 7. These findings were discussed with the patient's surveyor helper rod, Wayne Benjamin at 9:30 PM on 03/12/2020. ACT 112: Negative or not required by law. Electronically signed by: Keyshawn Gtz M.D. 03/12/2020 9:36 PM
[2020-03-12] MEDS ORDERED: DEXTROSE 5% IV ONE (22:15)
[2020-03-12] MEDS ORDERED: PROTAMINE SULFATE IV ONE (22:15)
[2020-03-12 22:23] LABS: INR 1.5 (0.9-1.1); Partial Thromboplastin Ratio 1.8; Prothrombin Time 15.6 Seconds (9.0-12.0)
[2020-03-12 22:26] LABS: Potassium Random Urine 51.3 mmol/L; Uric Acid Urine Random 57.6 mg/dl
[2020-03-12] MEDS ORDERED: PHYTONADIONE 5 MG in SODIUM CHLORIDE 0.9% 50 ML IV ONE (22:45)
[2020-03-13] MEDS ORDERED: CALCIUM 600MG + VIT D 400 IU TAB PO SCH (09:00)
[2020-03-13] MEDS ORDERED: ASCORBIC ACID 500 MG TAB PO SCH (09:00)
--- NOTE | 2020-03-13 17:35 | Discharge Summary ---
Date of Service March 13, 2020 Admission HPI Per Admitting Provider 64yo C male with history of Multiple Myeloma, AF, GERD, HTN reports mechanical fall in his living room 1 day prior to admission. He laid on the floor x 1 day, unable to get up. Denies syncope or head trauma. Unable to provide clear details. Nursing states he was covered in urine when he arrived as well as vomit. Found by neighbors who noted he did not collect his mail - they called for a well check On arrival to the ER [place] found to be markedly febrile at 41.2 rectal, tachycardic at 150bpm, HTN at 199/91, tachypneic at 35 with adequate oxygenation on room air. ER Course: NSS x 2L, LR x 1 L, Vancomycin, Cefepime, Cooling blanket Principal Diagnosis Coagulase negative Staphylococcus Septicemia, Legionella Pneumonia, Rhabdomyolysis, Acute kidney injury, Retroperitoneal hemorrhage, PEA arrest Discharge Exam Constitutional + obese Eyes + anicteric sclerae Neck trachea midline, no thyromegaly Respiratory normal respiratory effort, lungs clear to auscultation Auscultation: + diminished lung sounds (Throughout) and + rhonchi (Left upper lung field) Cardiovascular Rate/Rhythm: regular rate and regular rhythm Heart Sounds: no murmur Vessels: radial pulses present Extremities: + edema (Much improved with less edema of the legs and 1+ left arm) Chest (Breasts) Chest: + vascular access device or port (Port in place on the left, no surrounding erythema) Gastrointestinal (Abdomen) normal bowel sounds, soft, nontender, no hepatosplenomegaly Musculoskeletal Extremities: no cyanosis and no clubbing Skin + lesion (Multiple clear fluid-filled blisters on left arm and hand as well as across the abdomen) Neurologic awake Discharge Data Allergies Allergy/AdvReac Type Severity Reaction Status Date / Time epinephrine Allergy Intermediate STATES Verified 10/30/19 15:37 GETS A "WARNER" levofloxacin Allergy Intermediate RASH Verified 02/29/20 22:23 Sulfa (Sulfonamide Allergy Intermediate Rash Verified 02/29/20 22:24 Antibiotics) house dust Allergy Unknown Itchy Verified 02/29/20 22:24 Eye(s) Consultations 02/29/20 21:53 ED Decision to Admit Stat 03/01/20 10:53 Consult Cardiology Routine 03/02/20 07:58 Consult Nephrology Routine 03/02/20 14:10 Consult Industrial Sewer Stat 03/03/20 08:00 Consult Cardiology Routine 03/03/20 10:25 Consult Infectious Diseases Routine 03/04/20 10:44 Consult Dermatology Routine 03/04/20 15:06 Consult Palliative Care Routine 03/06/20 10:54 Consult Oncology Routine 03/10/20 15:32 Consult Orthopedic Surgery Routine 03/12/20 22:11 Burn CD for patient Stat Ordered Studies 02/29/20 19:32 CT abd pelvis wo con Stat CT chest wo con Stat CT head/brain wo con Stat 02/29/20 20:19 CT cervical spine wo con Stat 03/04/20 11:37 US venous doppler UE LT Urgent 03/12/20 17:26 US point of care ultrasound Urgent 03/12/20 20:10 CT abd pelvis wo con Stat CT chest wo con Stat CXRs ECHO Hospital Course (1) Retroperitoneal bleed: Noted to have large right sided RP bleed s/p PEA arrest on day of discharge. Likely cause of PEA arrest but could have been as a result of CPR also. He had no c/o back pain or abd pain when seen by me a few hours earlier and hgb had been stable for many days prior to PEA arrest. He was on SQ heparin for DVT prophylaxis only and platelets had recovered to normal Hgb dropped to 6.0 and was transfused 2 units blood Transfer out to tertiary care facility in case of need for IR provedure to stop bleeding as well as for central blood bank given need for specialized blood in setting of previous stem cell transplants (2) PEA (Pulseless electrical activity): as above, occurred on day of discharge possibly secondary to spontaneous RP bleed achieved ROSC after a few minutes Now intubated and being transferred out as above (3) Coagulase negative Staphylococcus bacteremia: 3 out of 4 cultures growing coag negative staph, resistant to oxacillin on 1 set and sensitive on another Was Vancomycin but has now been discontinued intravenously, but he is getting Vanco locks in his port in an effort to save it. Port does not appear infected. Repeat blood cultures from 03/04 remain no growth to date Carly ALBER was contacted by the ICU team re: antibiotics and duration given his positive blood cultures from 03/01 with two different coag neg staph species (one oxacillin sensitive, one resistant). Dr. Wong recommended discontinuation of zosyn and vanc, and instead treating the bacteremia with IV ceftaroline for 14 days from the first negative blood culture. She also recommended removal of his mediport given he is still febrile (although she was aware he is a bleeding risk given thrombocytopenia and anemia). She agreed with 10 day duration of azithromycin for legionella PNA. Remains afebrile now for many days will plan to keep port for now no septic clots on venous US initial echo showed no vegetations (4) Sepsis: Severe sepsis, septicemia-resolved This patient is a 64yo C male found down at home x24 hours, with acute metabolic encephalopathy, lactic acidosis. Febrile with temperature of 107.8 /tachycardic/tachypneic on arrival. Found with RUPINDER PNA on chest x-ray. Procal elevated at 2.27. Flu negative, Covid negative MRSA swab negative Immunocompromised from multiple myeloma with port in place Blood cultures: 02/28 with coag negative staph, 03/01 with coag negative staph, repeat cultures 03/04 no growth as above With lactic acidosis-lactate elevated at 3.6 on admission and then down to 1.9 Now afebrile as above for many days urine legionella positive, continue Zithromax 500mg daily with close attention to QTc as above x 10 days continue Ceftaroline for bacteremia and Vancomycin [place] no fungal coverage needed, Beta-D glucan positive (false positive?), BAL aggluttinin negative, fungal cultures negative Serenity growing from bronc washing-colonized (5) Anemia: macrocytic, down to 6.0 03/06 this was thought to be due to marrow failure, suppression from both myeloma and chemotherapy appreciate hematology consultation transfused 2 units 03/06, Hb up to 9.1 for many days and stable then down to 6.0 again as above on day of dc / RP bleed transfused 2 more units on day of dc (6) Pneumonia: Chest x-ray with RUPINDER socked in PNA-the source of his sepsis along with CoN Staph bacteremia urine legionella antigen positive continue Zithromax 500mg daily x 10 days (started 03/06, final dose will be 03/15) bronchoscopy 03/05, lavage with cultures taken, no growth continue flutter valve breathing is better, down to room air for many days Encourage mobilization Now on vent for PEA arrest (7) Atrial fibrillation with rapid ventricular response: Paroxysmal atrial fibrillation with heart rates at times to the 190s converted to sinus rhythm, sinus tachycardia on IV amiodarone continue amiodarone 200mg PO daily continue metoprolol 100mg BID cardiology following Only some atrial ectopy but no A. fib sustained for many days [id number] score is 1 -Appreciate cardiology consultation-recommends against anticoagulation at this time given higher risk for bleeding given multiple myeloma, anemia and worsening thrombocytopenia echo was largely normal (8) CHLOÉ (acute kidney injury): With creatinine elevated at 2.4 on admission and initially improved, but then peaked at 3.07 Cr remains stable at 2.6-2.8 continue to monitor he continues to self diurese, copious amounts of urine Now with hypernatremia which is somewhat concerning-checking urine osmolality as per nephrology which shows not properly diluting urine yet Na+ increasing further Follow urine output Urinalysis on admission with granular casts, most likely secondary to ATN from severe sepsis Repeat urinalysis on 03/11 again with granular casts but improving, otherwise contaminated, less protein He has decreased effective arterial volume secondary to hypoalbuminemia, developed anasarca from copious IV fluid administration for rhabdomyolysis which is now improved Also with nonanion gap metabolic acidosis, resolved Follow BMP Continue Friedman catheter for now as per nephrology for close monitoring of urine output in the setting of hypernatremia and CHLOÉ -giving 2L D5W to help keep up with hydration given hypernatremia and polyuria as per Nephro (9) Rhabdomyolysis: CK >14474 on arrival, secondary to prolonged down time. CK increased after admission to 24,000 but is now decreased to 300 after copious IV fluids were given - stopped fluids 03/02 -Friedman in place, closely monitor UOP -Monitor renal function and electrolytes and replace as needed -Appreciate nephrology consultation (10) Acute respiratory failure with hypoxia: Was requiring 3 L nasal cannula and saturations at 99% Secondary to pneumonia and sepsis Was resolved, now on vent as above for resp failure from PEA arrest (11) Elevated troponin: Patient denies CP, palpitations. No EKG evidence of ischemia. With acute kidney injury and rhabdomyolysis as well as rapid atrial fibrillation all contributing to myocardial demand ischemia. Did not present with acute coronary syndrome -Troponin peaked at 1.1 and back down again. Appreciate cardiology consultation Echocardiogram without wall motion abnormalities and with preserved EF -Continue ASA 81mg po daily -Continue metoprolol as above (12) Abnormal liver enzymes: Elevated LFTs most likely secondary to sepsis and rhabdomyolysis-now much improved CT abdomen/pelvis with mild hepatic steatosis, normal gallbladder and pancreas. -Also now on amiodarone (13) Multiple myeloma in remission: Patient receiving chemotherapy with Darzalex, last dose was 01/30/2020. Follows with Dr. Potts at the [facility] -LDH was quite elevated at 1000 and Uric acid normal, did not suspect tumor lysis syndrome Continue acyclovir for prophylaxis Follow CBC With multiple lytic bone lesions diffusely on imaging -Future chemotherapy is on hold until stabilized from medical standpoint (14) Hypokalemia: K+ finally improved after many days of replacing Some due to poor p.o. intake, other may be nephrogenic in origin -continue replacement orally but decrease dose to 40mEq BID Follow BMP in the morning (15) Hypophosphatemia: Severely low-replaced and resolved Follow phosphorus level (16) CKD (chronic kidney disease): Baseline creatinine is around 1.4-1.7 With CHLOÉ as above -Avoid nephrotoxins -renally dose meds when appropriate -follow BMP (17) HTN (hypertension): Blood pressures are on the low side when he has rapid atrial fibrillation, but now improved after spontaneous conversion to sinus rhythm -Continue holding home HCTZ -Continue metoprolol with hold parameters (18) Fall: Likely secondary to weakness from pneumonia and sepsis CT of the cervical spine, head CT, chest/abdomen/pelvis CT without fractures or acute findings other than PNA With continued left shoulder pain and weakness-consult orthopedic surgery- recommends MRI when medically stable (19) Pancytopenia: Secondary to multiple myeloma and chemotherapy as well as sepsis, possible DIC? Follow CBC in the morning Transfuse as needed (20) Prediabetes: Hemoglobin A1c elevated at 6.4% Follow Accu-Cheks NovoLog sliding scale insulin (21) Neuropathy: -Continue to hold home gabapentin, doxepin Thought to be secondary to chemotherapy (22) Hypoalbuminemia: Albumin severely low at 1.7, likely secondary to cancer, poor nutrition, and sepsis Follow levels Third spacing but is improving Appreciate dietary consultation Encourage patient to increase p.o. intake (23) Paresthesia of left arm: As above, secondary to significant edema from rhabdomyolysis Now improving with improvement in edema Diuresing -Continue to elevate arm on pillow (24) GERD (gastroesophageal reflux disease): Continue PPI (25) Shoulder weakness: With persistent weakness of the left shoulder, but able to move the distal hand and fingers, suspect some sort of rotator cuff tear during his fall Continues with edema which is improving Doppler of the left upper extremity negative for DVT X-rays negative for fracture of the shoulder -Consult orthopedic surgery for further management appreciated-recommends left shoulder MRI without contrast when medically stable. Could be neuropathy versus rotator cuff tear as per orthopedics. Would not be a good surgical candidate at this time secondary to multiple comorbidities and acute illness (26) Hypernatremia: Sodium rising to 149 again, with copious urine output Checking urine osmolality again D5W as above kidneys not properly diluting urine Appreciate Nephro management Follow BMP (27) DVT prophylaxis: Heparin SQ should be held for RP bleeding Disposition- transfer to tertiary care facility Full code Total Time Total Time Spent Total Time Spent (In Minutes): 35 min Total Time Includes: Examination of the Patient Discharge Plan Discharge Items Patient Disposition: Transfer Acute Care Hospital Reason For Visit: FEVER, TACHYCARDIA Discharge Diagnosis: RP Bleed Condition on Discharge: Serious Activity: As commented below Activity Comment: Bedrest Lifting: None Follow-up/Referrals: Cleveland Kennedy DO [Primary Care Provider] - Diet: Nothing by Mouth Addtl Attending Provider Instructions: [place] [facility] [place] [facility] Studies at Discharge: No Stand-Alone Forms: My [facility] Skilled Items Patient informed of condition?: No DNR: No Discharge Level of Care: Other Communicable Disease: No Discharge Prognosis: Deteriorating Lines: Peripheral IV Urinary Catheter: Yes Medications and DC Order Prescriptions: Discontinued doxepin 100 mg capsule 100 mg PO HS Qty: 90 RF: 1 dexamethasone 4 mg tablet See Rx Instructions .ROUTE .COMPLEX RF: 0 ascorbic acid (vitamin C) 500 mg capsule 500 mg PO QAM RF: 0 cyanocobalamin (vitamin B-12) [Vitamin B-12] 1,000 mcg Tablet 1,000 mcg PO QAM RF: 0 acyclovir 400 mg Tablet 400 mg PO BID RF: 0 pantoprazole 40 mg Tablet,Delayed Release (Dr/Ec) 40 mg PO BID RF: 0 metoprolol tartrate 50 mg Tablet 50 mg PO TID RF: 0 gabapentin 300 mg Capsule 300 mg PO TID RF: 0 Calcium 600 + D(3) 600 mg calcium- 200 unit Capsule 1 cap PO QAM RF: 0 omega 9-[id number]-fish oil [Fish Oil] 1,000 mg (120 mg-180 mg) Capsule 2 cap PO QAM RF: 0 guaifenesin [Mucinex] 600 mg Tablet Extended Release 12hr 600 mg PO Q12H PRN (Reason: Congestion) RF: 0 aspirin 81 mg Tablet,Delayed Release (Dr/Ec) 81 mg PO QAM RF: 0 potassium chloride 20 mEq Tablet Extended Release 20 meq PO QAM RF: 0 hydrochlorothiazide 25 mg Tablet 12.5 mg PO QAM RF: 0 fluticasone propionate [Flonase] 50 mcg/actuation [place],Suspension 2 spray INTRANASAL DAILY RF: 0 acetaminophen [Tylenol Extra Strength] 500 mg Tablet 500 mg PO Q6H PRN (Reason: Headache) RF: 0 docusate sodium [Colace] 100 mg Capsule 100 mg PO DAILY PRN (Reason: Constipation) RF: 0 cetirizine 10 mg Tablet 10 mg PO BID PRN (Reason: Allergy Symptoms) RF: 0 flaxseed oil Oil 1 ea MISCELLANEOUS DAILY RF: 0 cod liver oil Capsule 1 cap PO DAILY RF: 0 Discharge Orders: Discharge Order (Routine); Ordered 03/13/20 Ordered By: Wayne Koroma/Other Patient Handouts: Prediabetes, A1C Admission Data Admit Date/Time: 02/29/20 23:14 Attending Provider: Tamiko Marion Admit Provider: Haleigh Guillermo Primary Care Provider: Cleveland Kennedy Other Providers: [facility] ; Haleigh Guillermo ; Tam Munoz ; Evangelina Dunham Vyacheslav ; Hi Baig ; Danny Blank ; Radha Davidson ; Donald Guillermo I. ; Donald Tolbert II ; Allegra Adames ; Dante Shultz ; Jim Vale ; Claudia Santa ; Skyler Garcia ; Edi Sterling Other Interventions: Discharge Summary Assessment (RN) Last Done: 03/13/20 01:56 Coding Level of Care Code D/C Day Management >30 mins Diagnoses Retroperitoneal bleed R58 PEA (Pulseless electrical activity) I46.9 Coagulase negative Staphylococcus bacteremia R78.81; B95.7 Sepsis A41.9; R65.20; G93.40 Sepsis acute organ dysfunction status: with acute organ dysfunction Sepsis type: sepsis due to unspecified organism Severe sepsis acute organ dysfunction type: encephalopathy Severe sepsis shock status: without septic shock Anemia D64.9 Pneumonia J18.9 Pneumonia type: due to unspecified organism Atrial fibrillation with rapid ventricular response I48.91 CHLOÉ (acute kidney injury) N17.9 Rhabdomyolysis M62.82 Rhabdomyolysis type: non-traumatic Acute respiratory failure with hypoxia J96.01 Elevated troponin R77.8 Abnormal liver enzymes R74.8 Multiple myeloma in remission C90.01 Hypokalemia E87.6 Hypophosphatemia E83.39 CKD (chronic kidney disease) N18.9 HTN (hypertension) I10 Fall W19.XXXA Pancytopenia D61.818 Prediabetes R73.03 Neuropathy G62.9 Hypoalbuminemia E88.09 Paresthesia of left arm R20.2 GERD (gastroesophageal reflux disease) K21.9 Shoulder weakness R29.898 Hypernatremia E87.0 DVT prophylaxis Z29.9
[2020-03-16 00:41] LABS: Legionella Culture Source LUL; Source BRONCH WASH LUL
== END 2020-03-13 01:56 | disposition short-term general hospital (02) | DRG 871 ==
LOC: ED 19:16 → 2S 23:14 → SUATTDRO 23:14 → 2S 23:45 → 1E 03-02 13:53 → 2S 03-07 13:32 → 2E 03-09 14:55 → 1E 03-12 13:57

== ENCOUNTER 2020-04-16 11:06 | Inpatient (IN) ==
[2020-04-16] MEDS ORDERED: SODIUM CHLORIDE 0.9% 1000ML 1,000 ML IV ONE ×3 (11:49→22:45)
[2020-04-16 12:21] LABS: Basophils # (auto) 0.01 K/uL (0-0.2); Basophils % (auto) 0.2 %; Eosinophils # (auto) 0.06 K/uL (0-0.5); Eosinophils % (auto) 1.3 %; Hematocrit (blood only) 27.4 % (42-52); Hemoglobin 9.1 g/dL (14.0-18.0); Immature Granulocytes # (auto) 0.02 K/uL (0.00-0.02); Immature Granulocytes % (auto) 0.4 %; Lymphocytes # (auto) 1.65 K/uL (1.2-3.4); Lymphocytes % (auto) 35.9 %; Mean Corpuscular Hemoglobin 31.5 pg (25-34); Mean Corpuscular Hgb Conc 33.2 g/dL (32-36); Mean Corpuscular Volume 94.8 fL (80-100); Mean Platelet Volume 9.8 fL (7.4-10.4); Monocytes % (auto) 6.5 %; Neutrophils # (auto) 2.55 K/uL (1.4-6.5); Neutrophils % (auto) 55.7 %; Platelet Count 168 K/uL (130-400); RDW Coefficient of Variation 17.1 % (11.5-14.5); RDW Standard Deviation 54.2 fL (36.4-46.3); Red Blood Count 2.89 M/uL (4.7-6.1); White Blood Count 4.59 K/uL (4.8-10.8)
--- NOTE | 2020-04-16 12:22 | Emergency Department Note ---
Impression & Plan Pneumonia, Acute hypotension, Weakness, Acute dehydration ED Provider Note NAME: PATRIC MAYER AGE: 64 SEX: M : 1955 ARRIVES VIA: Ambulance INFORMANT: Patient, ED PROVIDER(S): Haja Arizmendi DO CHIEF COMPLAINT: Weakness HPI: The patient is a 64-year-old male who presented to the emergency department for an evaluation of generalized weakness. The patient was seen in our facility recently for different complaints. He has a history of multiple myeloma. He had cardiac arrest and was transferred to [facility]. After his stay at [facility] he was transferred to rehab and is currently living at [facility]. He has been having follow-up appointments as usual but recently was starting to feel weak. He states that he has been compliant with his outpatient medications. The patient had a follow-up appointment today with [place] and was noted to have low blood pressure. For that reason he was sent to the emergency department for further evaluation. He denies having any nausea or vomiting but has had some loose bowel movements. He complains of mild abdominal distention and pain. He denies having any dysuria or frequency. He states he is having dizziness upon standing. ROS: See above HPI for pertinent positives & negatives. A total of 10 systems reviewed and were otherwise negative. PAST MEDICAL HISTORY: See Below PAST SURGICAL HISTORY: See Below FAMILY HISTORY: See Below SOCIAL HISTORY: See Below HOME MEDICATIONS: See Below ALLERGIES: See Below VITALS: See Below PHYSICAL EXAMINATION: GENERAL: Patient is awake alert in no acute distress patient is resting comfortably and showing no signs of anxiety EYES: The conjunctivae are clear. The pupils are round and reactive. EARS, NOSE, MOUTH AND THROAT: The nose is without any evidence of any deformity. Mucous membranes are dry. NECK: The neck is nontender and supple. RESPIRATORY: Normal respiratory effort is noted there is no evidence of wheezing rhonchi or rales CARDIOVASCULAR: Regular rhythm was noted to auscultation. No definite murmur was noted. GASTROINTESTINAL: The abdomen was soft and mildly distended. There was no guarding rigidity appreciated. MUSCULOSKELETAL/EXTREMITIES: There is no evidence of gross deformity full range of motion is noted in the hips and shoulders. SKIN: Skin was warm and dry. There is poor turgor noted. Pulses were symmetric in both feet. NEUROLOGIC: Patient is awake alert and oriented x3. MEDICAL DECISION MAKING: The patient is a 64-year-old male who presented to the emergency department for an evaluation of generalized weakness. The patient was sent to the emergency department by his cardiology group because of hypotension. The patient himself has been having generalized weakness as well as some loose bowel movements. He was treated with IV fluids and IV antibiotics for presumed new pneumonia. I discussed the patient's laboratory and radiographic studies with him. Given his condition and his recent history of cardiac arrest and transfer I did feel the patient may be better treated as an inpatient. I discussed [facility]. They have agreed to evaluate the patient in the emergency department for further management and disposition. Triage Nursing notes reviewed. Prior medical records reviewed Vital Signs: reviewed and remarkable for hypotension Differential diagnosis: Infection, dehydration, metabolic abnormality, hypo/hyperglycemia, electrolyte disturbance, anemia, hypoxia, cardiac sources, intracerebral event, toxicologic, neurologic, as well as other pathologies. ER treatment provided: See below Diagnostics interpreted by me: ECG: EKG was obtained in the emergency department. My interpretation is normal sinus rhythm at 89 bpm. There was no ectopy. Inferior and lateral ST depressions with T wave inversions were noted. This was compared to a tracing from March 072019. The ST segment abnormalities are more pronounced however a similar tracing was noted from the previous EKG. Cardiac Monitoring: An order was placed for continuous cardiac monitoring. The monitor shows a rate of 89 bpm with sinus rhythm. Laboratory studies: As stated above and show below. Imaging studies: See below Consultation(s): [id number]: I discussed this case with Dr. Burk Past Med/Surg History Medical History Acute confusion Acute dehydration Acute kidney injury CKD (chronic kidney disease) Constipation Fever HTN (hypertension) Hypomagnesemia Multiple myeloma Multiple myeloma Neuropathy BL FOOT; 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 CANCER TREATMENT Pancytopenia Paroxysmal atrial fibrillation Retroperitoneal bleed Rhabdomyolysis Seasonal allergies Severe sepsis Surgical History History of bone marrow biopsy History of cataract surgery BL History of colonoscopy History of incision and drainage CYST - RT GROIN History of stem cell transplant History of surgery CYST REMOVED FROM COCCYX 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; 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 Family History Family/Other Family history of diabetes mellitus Social History Smoking Status: Never smoker Second Hand Exposure: No; Hx Alcohol Use: Yes Alcohol type: wine Hx Substance Use: No Preferred Language: [place]guill[place] Communication Ability: Effective Fruit Packer Required: No Beliefs That Will Affect Care: None marital status: Single Current Living Situation: Alone Feels Safe at Home: Yes Assistive Devices: None Allergies Allergies Allergy/AdvReac Type Severity Reaction Status Date / Time epinephrine Allergy Intermediate STATES Verified 04/16/20 13:32 GETS A "WARNER" levofloxacin Allergy Intermediate RASH Verified 04/16/20 13:32 Sulfa (Sulfonamide Allergy Intermediate Rash Verified 04/16/20 13:32 Antibiotics) house dust Allergy Unknown Itchy Verified 04/16/20 13:32 Eye(s) Home Meds Home Medications Medication Instructions Recorded Confirmed Calcium 600 + D(3) 1 cap PO QAM 08/07/18 04/16/20 acyclovir 400 mg PO BID 08/07/18 04/16/20 aspirin 81 mg PO QAM 08/07/18 04/16/20 cyanocobalamin (vitamin B-12) 1,000 mcg PO QAM 08/07/18 04/16/20 [Vitamin B-12] gabapentin 300 mg PO TID 08/07/18 04/16/20 guaifenesin [Mucinex] 600 mg PO Q12H PRN 08/07/18 04/16/20 metoprolol tartrate 50 mg PO TID 08/07/18 04/16/20 omega 5-tao-zlw-fish oil [Fish Oil] 2 cap PO QAM 08/07/18 04/16/20 ascorbic acid (vitamin C) 500 mg 500 mg PO QAM cap 02/23/19 04/16/20 capsule potassium chloride 20 meq PO QAM 06/08/19 04/16/20 acetaminophen [Tylenol Extra 500 mg PO Q6H PRN 02/29/20 04/16/20 Strength] cetirizine 10 mg PO BID PRN 02/29/20 04/16/20 docusate sodium [Colace] 100 mg PO DAILY PRN 02/29/20 04/16/20 fluticasone propionate [Flonase] 2 spray INTRANASAL DAILY 02/29/20 04/16/20 albuterol sulfate 2.5 mg INHALATION Q4H PRN 04/16/20 04/16/20 amiodarone 200 mg PO DAILY 04/16/20 04/16/20 carboxymethylcellulose sodium 1 drp OPB BID 04/16/20 04/16/20 [Artificial Tears (cmc)] doxycycline hyclate 100 mg IV Q12H 04/16/20 04/16/20 heparin (porcine) 5,000 unit SUBCUT Q8H 04/16/20 04/16/20 lidocaine 1 patch TOPICAL DAILY 04/16/20 04/16/20 lisinopril 5 mg PO DAILY 04/16/20 04/16/20 loteprednol etabonate [Lotemax] 1 drp OPB DAILY 04/16/20 04/16/20 miconazole nitrate 1 applic TOPICAL BID 04/16/20 04/16/20 multivitamin 1 tab PO QAM 04/16/20 04/16/20 oxycodone 2.5 mg PO Q4H PRN 04/16/20 04/16/20 pantoprazole 20 mg PO BID 04/16/20 04/16/20 polyethylene glycol 3350 [Miralax] 17 g PO DAILY PRN 04/16/20 04/16/20 simethicone 80 mg PO QID PRN 04/16/20 04/16/20 Previous Rx's Medication Instructions Recorded doxepin 100 mg capsule 100 mg PO HS #90 cap 02/25/20 Results & Data (ED) Vital Signs Vital Signs - 24 hr 04/16/20 11:27 04/16/20 11:41 04/16/20 11:59 Temperature 37.0 C Temperature Source Oral Pulse Rate 93 H 92 H Respiratory Rate 18 18 Respiratory Effort / Characteristics Non-Labored Spontaneous Respiratory Depth Normal Respiratory Pattern Agonal Blood Pressure 87/54 L 86/50 L Blood Pressure Mean 65 63 Blood Pressure Position Semi-fowlers Pulse Oximetry 100 100 100 Oxygen Delivery Method Room Air Room Air Sepsis Recent Fever Within 48 Hours No Sepsis New/Unexplained Change in Mental Status N/A Sepsis Action Taken by Nursing No Action Required 04/16/20 12:15 04/16/20 12:30 04/16/20 13:00 Temperature Temperature Source Pulse Rate 89 86 88 Respiratory Rate 23 21 19 Respiratory Effort / Characteristics Respiratory Depth Respiratory Pattern Blood Pressure 94/55 L 109/59 L 106/57 L Blood Pressure Mean 65 72 76 Blood Pressure Position Pulse Oximetry 100 100 96 Oxygen Delivery Method Sepsis Recent Fever Within 48 Hours Sepsis New/Unexplained Change in Mental Status Sepsis Action Taken by Nursing 04/16/20 13:30 04/16/20 14:00 Temperature Temperature Source Pulse Rate 87 88 Respiratory Rate 19 23 Respiratory Effort / Characteristics Respiratory Depth Respiratory Pattern Blood Pressure 117/58 L 110/55 L Blood Pressure Mean 74 72 Blood Pressure Position Pulse Oximetry 97 99 Oxygen Delivery Method Sepsis Recent Fever Within 48 Hours Sepsis New/Unexplained Change in Mental Status Sepsis Action Taken by Correction Medications Current Medication List: was personally reviewed by me Laboratory Data Attestation: I reviewed the patient's lab results. Result diagrams: 04/16/20 12:04 04/16/20 12:04 Lab Results 04/16/20 04/16/20 04/16/20 Range/Units 12:04 12:04 12:04 WBC (4.8-10.8) K/uL RBC (4.7-6.1) M/uL Hgb (14.0-18.0) g/dL Hct (42-52) % MCV (80-100) fL MCH (25-34) pg MCHC (32-36) g/dL RDW Std Deviation (36.4-46.3) fL RDW Coeff of Elvira (11.5-14.5) % Plt Count (130-400) K/uL MPV (7.4-10.4) fL Immature Gran % (Auto) % Neut % (Auto) % Lymph % (Auto) % Gem % (Auto) % Eos % (Auto) % Baso % (Auto) % Neut # (Auto) (1.4-6.5) K/uL Lymph # (Auto) (1.2-3.4) K/uL Gem # (Auto) (0.11-0.59) K/uL Eos # (Auto) (0-0.5) K/uL Baso # (Auto) (0-0.2) K/uL Immature Gran # (Auto) (0.00-0.02) K/uL PT (9.0-12.0) Seconds INR (0.9-1.1) APTT (21.0-31.0) Seconds PTT Ratio Sodium 137 (136-145) mmol/L Potassium 3.3 L (3.5-5.1) mmol/L Chloride 106 (98-107) mmol/L Carbon Dioxide 24 (21-32) mmol/L Anion Gap 7.0 (3-11) BUN 12 (7-18) mg/dl Creatinine 3.16 H (0.6-1.4) mg/dl Est Cr Clr Drug Dosing 26.6 ml/min Est GFR ( Amer) 23.2 Est GFR (Non-Af Amer) 20.0 BUN/Creatinine Ratio 3.8 L (10-20) Glucose 108 H (70-99) mg/dl Lactate (0.4-2.0) mmol/L Calcium 8.7 (8.5-10.1) mg/dl Magnesium 2.0 (1.8-2.4) mg/dl Total Bilirubin 0.8 (0.2-1) mg/dl AST 33 (15-37) U/L ALT 24 (12-78) U/L Alkaline Phosphatase 183 H (45-117) U/L Troponin I < 0.015 (0-0.045) ng/ml Total Protein 8.0 (6.4-8.2) gm/dl Albumin 2.4 L (3.4-5.0) gm/dl Globulin 5.6 H (2.5-4.0) gm/dl Albumin/Globulin Ratio 0.4 L (0.9-2) Procalcitonin 0.17 (0-0.5) ng/ml Random Cortisol 16.68 mcg/dl COVID-19 Eval Order SARS-CoV-2, RNA, NAAT (NEGATIVE) 04/16/20 04/16/20 04/16/20 Range/Units 12:04 12:04 12:04 WBC 4.59 L (4.8-10.8) K/uL RBC 2.89 L (4.7-6.1) M/uL Hgb 9.1 L (14.0-18.0) g/dL Hct 27.4 L (42-52) % MCV 94.8 (80-100) fL MCH 31.5 (25-34) pg MCHC 33.2 (32-36) g/dL RDW Std Deviation 54.2 H (36.4-46.3) fL RDW Coeff of Elvira 17.1 H (11.5-14.5) % Plt Count 168 (130-400) K/uL MPV 9.8 (7.4-10.4) fL Immature Gran % (Auto) 0.4 % Neut % (Auto) 55.7 % Lymph % (Auto) 35.9 % Gem % (Auto) 6.5 % Eos % (Auto) 1.3 % Baso % (Auto) 0.2 % Neut # (Auto) 2.55 (1.4-6.5) K/uL Lymph # (Auto) 1.65 (1.2-3.4) K/uL Gem # (Auto) 0.30 (0.11-0.59) K/uL Eos # (Auto) 0.06 (0-0.5) K/uL Baso # (Auto) 0.01 (0-0.2) K/uL Immature Gran # (Auto) 0.02 (0.00-0.02) K/uL PT 13.6 H (9.0-12.0) Seconds INR 1.3 H (0.9-1.1) APTT 28.9 (21.0-31.0) Seconds PTT Ratio 1.0 Sodium (136-145) mmol/L Potassium (3.5-5.1) mmol/L Chloride (98-107) mmol/L Carbon Dioxide (21-32) mmol/L Anion Gap (3-11) BUN (7-18) mg/dl Creatinine (0.6-1.4) mg/dl Est Cr Clr Drug Dosing ml/min Est GFR ( Amer) Est GFR (Non-Af Amer) BUN/Creatinine Ratio (10-20) Glucose (70-99) mg/dl Lactate 2.2 H* (0.4-2.0) mmol/L Calcium (8.5-10.1) mg/dl Magnesium (1.8-2.4) mg/dl Total Bilirubin (0.2-1) mg/dl AST (15-37) U/L ALT (12-78) U/L Alkaline Phosphatase (45-117) U/L Troponin I (0-0.045) ng/ml Total Protein (6.4-8.2) gm/dl Albumin (3.4-5.0) gm/dl Globulin (2.5-4.0) gm/dl Albumin/Globulin Ratio (0.9-2) Procalcitonin (0-0.5) ng/ml Random Cortisol mcg/dl COVID-19 Eval Order SARS-CoV-2, RNA, NAAT (NEGATIVE) 04/16/20 04/16/20 04/16/20 Range/Units 12:04 12:04 14:04 WBC (4.8-10.8) K/uL RBC (4.7-6.1) M/uL Hgb (14.0-18.0) g/dL Hct (42-52) % MCV (80-100) fL MCH (25-34) pg MCHC (32-36) g/dL RDW Std Deviation (36.4-46.3) fL RDW Coeff of Elvira (11.5-14.5) % Plt Count (130-400) K/uL MPV (7.4-10.4) fL Immature Gran % (Auto) % Neut % (Auto) % Lymph % (Auto) % Gem % (Auto) % Eos % (Auto) % Baso % (Auto) % Neut # (Auto) (1.4-6.5) K/uL Lymph # (Auto) (1.2-3.4) K/uL Gem # (Auto) (0.11-0.59) K/uL Eos # (Auto) (0-0.5) K/uL Baso # (Auto) (0-0.2) K/uL Immature Gran # (Auto) (0.00-0.02) K/uL PT (9.0-12.0) Seconds INR (0.9-1.1) APTT (21.0-31.0) Seconds PTT Ratio Sodium (136-145) mmol/L Potassium (3.5-5.1) mmol/L Chloride (98-107) mmol/L Carbon Dioxide (21-32) mmol/L Anion Gap (3-11) BUN (7-18) mg/dl Creatinine (0.6-1.4) mg/dl Est Cr Clr Drug Dosing ml/min Est GFR ( Amer) Est GFR (Non-Af Amer) BUN/Creatinine Ratio (10-20) Glucose (70-99) mg/dl Lactate 1.2 (0.4-2.0) mmol/L Calcium (8.5-10.1) mg/dl Magnesium (1.8-2.4) mg/dl Total Bilirubin (0.2-1) mg/dl AST (15-37) U/L ALT (12-78) U/L Alkaline Phosphatase (45-117) U/L Troponin I (0-0.045) ng/ml Total Protein (6.4-8.2) gm/dl Albumin (3.4-5.0) gm/dl Globulin (2.5-4.0) gm/dl Albumin/Globulin Ratio (0.9-2) Procalcitonin (0-0.5) ng/ml Random Cortisol mcg/dl COVID-19 Eval Order Covid19 IDNow atMMNC SARS-CoV-2, RNA, NAAT NEGATIVE (NEGATIVE) Administered Medications Vancomycin HCl 1,750 mg/ (Sodium Chloride) 535 mls @ 200 mls/hr IV NOW ONE Stop: 04/16/20 16:08 Last Admin: 04/16/20 14:23 Dose: 200 mls/hr Documented by: [id number] Discontinued Medications Sodium Chloride (Nss 1000ml) 1,000 mls @ 999 mls/hr IV .Q1H1M ONE Stop: 04/16/20 12:49 Last Infusion: 04/16/20 13:14 Dose: 0 mls/hr Documented by: [id number] Admin: 04/16/20 12:13 Dose: 999 mls/hr Documented by: [id number] Piperacillin Sod/Tazobactam Sod (Zosyn) 4.5 gm in 120 mls @ 240 mls/hr IV NOW ONE Stop: 04/16/20 13:57 Last Infusion: 04/16/20 14:25 Dose: 0 mls/hr Documented by: [id number] Admin: 04/16/20 13:44 Dose: 240 mls/hr Documented by: [id number] Sodium Chloride (Nss 1000ml) 1,000 mls @ 999 mls/hr IV .Q1H1M ONE Stop: 04/16/20 14:28 Last Admin: 04/16/20 13:44 Dose: 999 mls/hr Documented by: [id number] Imaging Data Radiologist's Impression: Patient: PATRIC MAYER Admit Date: 04/16/20 MR#: [id number] Address1: [address] [place] [address] Acct ID:[id number] Address2: Date: 1955 [facility] Zip: [place] [address] Age: 64 Location: ED Sex: M Room/Bed: Replaced By [facility] Phy: Diagnosis: N/V Weakness Tejal Phy: Cleveland Kennedy D.O. Service Date: 04/16/20 [facility] Phy: Interpreting Phy: Joselo Koch MD Admit Phy: Ordering Phy: Haja Arizmendi DO cc: ~ XR KUB/Abdomen 1 view CLINICAL HISTORY: Abdominal distention COMPARISON STUDY: No previous studies for comparison. FINDINGS: There is mild gaseous prominence of left central bowel loops. There a re no transition zones indicate bowel obstruction. There are no calcifications suspicious for renal calculi. Pelvic basin calcifications likely represent phleboliths IMPRESSION: Nonobstructive bowel gas pattern ACT 112: Negative or not required by law. Electronically signed by: Joselo Koch M.D. 04/16/2020 12:29 PM Dictated: 04/16/20 1228 Transcribed: 04/16/20 1228 Patient: PATRIC MAYER Admit Date: 04/16/20 MR#: [id number] Address1: [address] [place] [address] Acct ID:[id number] Address2: Date: 1955 [facility] Zip: [place] [address] Age: 64 Location: ED Sex: M Room/Bed: Replaced By [facility] Phy: Diagnosis: N/V Weakness Tejal Phy: Cleveland Kennedy D.O. Service Date: 04/16/20 [facility] Phy: Interpreting Phy: Joselo Koch MD Admit Phy: Ordering Phy: Haja Arizmendi DO cc: ~ XR chest 1V portable CLINICAL HISTORY: SEPSIS COMPARISON STUDY: 03/12/2020 FINDINGS: The endotracheal tube nasogastric tube and bilateral central venous catheters have been removed. There is been interval clearing of the left upper lobe airspace opacities. There is blunting the right lateral costophrenic angle. There are airspace opacities the right medial lung base, atelectatic versus infectious/inflammatory[. There is equivocal lytic lesion involving the left proximal humeral metaphysis IMPRESSION: 1. Suspected trace right pleural effusion 2. Right medial basilar opacities, atelectatic versus infectious/inflammatory 3. Interval clearing of the previously identified left upper lobe consolidation 4. Equivocal lytic lesion involving the left proximal humeral metaphysis ACT 112: Negative or not required by law. Electronically signed by: Joselo Koch M.D. 04/16/2020 12:32 PM Dictated: 04/16/20 1229 Transcribed: 04/16/20 1229 Blood Pressure Blood Pressure Findings: Low blood pressure Discharge Plan Visit Data Chief Complaint: Illness Stated Complaint: N/V Weakness ED Provider: Haja Arizmendi Discharge Problem: Pneumonia, Acute hypotension, Weakness, Acute dehydration Forms Stand Alone Forms: [employer] Prescriptions Prescriptions: No Action doxepin 100 mg capsule 100 mg PO HS Qty: 90 RF: 1 ascorbic acid (vitamin C) 500 mg capsule 500 mg PO QAM RF: 0 cyanocobalamin (vitamin B-12) [Vitamin B-12] 1,000 mcg Tablet 1,000 mcg PO QAM RF: 0 acyclovir 400 mg Tablet 400 mg PO BID RF: 0 metoprolol tartrate 50 mg Tablet 50 mg PO TID RF: 0 gabapentin 300 mg Capsule 300 mg PO TID RF: 0 Calcium 600 + D(3) 600 mg calcium- 200 unit Capsule 1 cap PO QAM RF: 0 omega 4-wyn-iac-fish oil [Fish Oil] 1,000 mg (120 mg-180 mg) Capsule 2 cap PO QAM RF: 0 guaifenesin [Mucinex] 600 mg Tablet Extended Release 12hr 600 mg PO Q12H PRN (Reason: Congestion) RF: 0 aspirin 81 mg Tablet,Delayed Release (Dr/Ec) 81 mg PO QAM RF: 0 potassium chloride 20 mEq Tablet Extended Release 20 meq PO QAM RF: 0 fluticasone propionate [Flonase] 50 mcg/actuation [place],Suspension 2 spray INTRANASAL DAILY RF: 0 acetaminophen [Tylenol Extra Strength] 500 mg Tablet 500 mg PO Q6H PRN (Reason: Headache) RF: 0 docusate sodium [Colace] 100 mg Capsule 100 mg PO DAILY PRN (Reason: Constipation) RF: 0 cetirizine 10 mg Tablet 10 mg PO BID PRN (Reason: Allergy Symptoms) RF: 0 multivitamin Tablet 1 tab PO QAM RF: 0 amiodarone 200 mg Tablet 200 mg PO DAILY RF: 0 pantoprazole 20 mg tablet,delayed release (DR/EC) 20 mg PO BID RF: 0 doxycycline hyclate 100 mg Recon Soln 100 mg IV Q12H RF: 0 miconazole nitrate 2 % Ointment 1 applic TOPICAL BID RF: 0 lidocaine 5 % Adhesive Patch,Medicated 1 patch TOPICAL DAILY RF: 0 lisinopril 5 mg Tablet 5 mg PO DAILY RF: 0 loteprednol etabonate [Lotemax] 0.5 % Drops,Suspension 1 drp OPB DAILY RF: 0 polyethylene glycol 3350 [Miralax] 17 gram/dose Powder 17 g PO DAILY PRN (Reason: Constipation) RF: 0 heparin (porcine) 5,000 unit/mL Solution 5,000 unit SUBCUT Q8H RF: 0 simethicone 80 mg Tablet,Chewable 80 mg PO QID PRN (Reason: abdominal bloating/ gas pain) RF: 0 oxycodone 5 mg Tablet 2.5 mg PO Q4H PRN (Reason: Moderate Pain (Scale Score 5-6)) RF: 0 albuterol sulfate 2.5 mg/0.5 mL Solution For Nebulization 2.5 mg INHALATION Q4H PRN (Reason: Wheezing) RF: 0 Artificial Tears (cmc) 1 % Drops 1 drp OPB BID RF: 0 Discharge Problem: Pneumonia Qualifiers: Pneumonia type: due to unspecified organism Laterality: unspecified laterality Lung location: unspecified part of lung Qualified Code(s): J18.9 - Pneumonia, unspecified organism
--- NOTE | 2020-04-16 12:30 | XRay Report ---
XR KUB/Abdomen 1 view CLINICAL HISTORY: Abdominal distention COMPARISON STUDY: No previous studies for comparison. FINDINGS: There is mild gaseous prominence of left central bowel loops. There are no transition zones indicate bowel obstruction. There are no calcifications suspicious for renal calculi. Pelvic basin c alcifications likely represent phleboliths IMPRESSION: Nonobstructive bowel gas pattern ACT 112: Negative or not required by law. Electronically signed by: Joselo Koch M.D. 04/16/2020 12:29 PM
--- NOTE | 2020-04-16 12:34 | XRay Report ---
XR chest 1V portable CLINICAL HISTORY: SEPSIS COMPARISON STUDY: 03/12/2020 FINDINGS: The endotracheal tube nasogastric tube and bilateral central venous catheters have been rem dariel. There is been interval clearing of the left upper lobe airspace opacities. There is blunting th e right lateral costophrenic angle. There are airspace opacities the right medial lung base, atelecta tic versus infectious/inflammatory[. There is equivocal lytic lesion involving the left proximal darwin ral metaphysis IMPRESSION: 1. Suspected trace right pleural effusion 2. Right medial basilar opacities, atelectatic versus infectious/inflammatory 3. Interval clearing of the previously identified left upper lobe consolidation 4. Equivocal lytic lesion involving the left proximal humeral metaphysis ACT 112: Negative or not required by law. Electronically signed by: Joselo Koch M.D. 04/16/2020 12:32 PM
[2020-04-16 12:36] LABS: INR 1.3 (0.9-1.1); Partial Thromboplastin Time 28.9 Seconds (21.0-31.0); Prothrombin Time 13.6 Seconds (9.0-12.0)
[2020-04-16 12:37] LABS: Alanine Aminotransferase 24 U/L (12-78); Albumin Level 2.4 gm/dl (3.4-5.0); Aspartate Aminotransferase 33 U/L (15-37); BUN Creatinine Ratio 3.8 (10-20); Blood Urea Nitrogen 12 mg/dl (7-18); Calcium 8.7 mg/dl (8.5-10.1); Carbon Dioxide 24 mmol/L (21-32); Chloride 106 mmol/L (98-107); Creatinine Clr Calc Pharmacy 26.6 ml/min; Est GFR (African American) 23.2; Glucose 108 mg/dl (70-99); Potassium 3.3 mmol/L (3.5-5.1); Sodium 137 mmol/L (136-145)
[2020-04-16 12:42] LABS: Albumin Globulin Ratio 0.4 (0.9-2); Alkaline Phosphatase 183 U/L (45-117); Bilirubin,Total 0.8 mg/dl (0.2-1); Globulin 5.6 gm/dl (2.5-4.0); Troponin I < 0.015 ng/ml (0-0.045)
[2020-04-16] MEDS ORDERED: PIPERACILLIN/TAZOBACTAM 4.5 GM/120 ML BAG IV ONE (13:28)
[2020-04-16] MEDS ORDERED: PIPERACILL/TAZOBAC CONSULT ACTIVE PRN (13:28)
[2020-04-16] MEDS ORDERED: VANCOMYCIN CONSULT ACTIVE PRN (13:28)
[2020-04-16] MEDS ORDERED: VANCOMYCIN HCL 1,750 MG in SODIUM CHLORIDE 0.9% 500 ML IV ONE (13:28)
--- NOTE | 2020-04-16 14:24 | Electrocardiogram Report ---
Test Reason : Blood Pressure : / mmHG Vent. Rate : 089 BPM Atrial Rate : 089 BPM P-R Int : 148 ms QRS Dur : 086 ms QT Int : 420 ms P-R-T Axes : 031 030 018 degrees QTc Int : 511 ms Normal sinus rhythm Nonspecific ST and T wave abnormality Prolonged QT Abnormal ECG When compared with ECG of 07-MAR-2020 09:11, Nonspecific T wave abnormality, worse in Inferior leads QT has lengthened Confirmed by Haja Gaona ([id number]) on 04/16/2020 2:23:30 PM Referred By: Confirmed By:Haja Gaona
[2020-04-16 16:20] LABS: Appearance Urine Clear (Clear); Bacteria Urine Automated Negative (Negative); Bilirubin Urine Negative (Negative); Blood Urine Negative (Negative); Color Urine Yellow; Epithelial Cell Urine Auto >30 /lpf (0-5); Glucose Urine UA Negative (Negative); Ketones Urine Negative (Negative); Leukocyte Esterase Urine Trace (Negative); Nitrite Urine Negative (Negative); Protein Urine 1+ (Negative); RBC Urine Automated 0-4 /hpf (0-4); Specific Gravity Urine 1.011 (1.000-1.030); Urobilinogen Urine Negative (Negative)
--- NOTE | 2020-04-16 16:28 | History & Physical Report ---
Date of Service April 16, 2020 Assessment & Plan (1) Pneumonia: Admit obs med tele On chest Xray right medial basilar opacity atelectasis vs infection/inflammation, left upper lobe consolidation from previous now resolved Will continue vanc given in ED until MRSA swab obtained, dc if negative. Doxy rather than azithro due to prolonged QT and ceftriaxone to cover pneumonia. Initial procalcitonin normal, recheck am. If still wnl and patient is stable could consider dc'ing abx as pna is equivocal and patient does not have a cough or leukocytosis COVID negative (2) Nausea: Unclear etiology but may be stress gastritis from recent cardiac arrest and hospitalization Will give Compazine 5 mg q8h scheduled and pantoprazole bid QT is prolonged on EKG so will avoid Zofran for now KUB without obstruction (3) Weakness: Secondary to deconditioning, dehydration, possible infection PT/OT (4) Acute dehydration: Secondary to nausea/vomiting NSS @ 125 Recheck prp am (5) Anemia: History of spontaneous retroperitoneal bleed in the setting of low platelets following chemotherapy in July Now with hgb 9.1 which appears to be around baseline recheck prp am (6) Multiple myeloma: Patient was on Darzalex, it does not appear that he has resumed chemotherapy since his previous admission in July Continue acyclovir for now for tumor lysis syndrome prophylaxis, will inquire tomorrow with his oncologist about last chemo, likely was on 01/30/2020 Lytic bone lesions on imaging (7) CHLOÉ (acute kidney injury): Creatinine 3.16 likely due to dehydration at least in part although bun is not elevated. Hypokalemia, no anion gap, bicarb wnl Avoid nephrotoxins - will hold home lisinopril IVF @ 125 mls/hr Recheck prp am (8) Hypotension: Likely secondary to acute dehydration Blood pressures were running in the 80s systolically on presentation to ED, now 98/55 Given 2L IVF in ED, will continue IVF with NSS @ 125 ml/hr (9) CKD (chronic kidney disease): Per [place] discharge summary, patient was discharged with creatinine 1.6. Baseline pre-February was 1.4-1.7 (10) Paroxysmal atrial fibrillation: EKG currently in SR Not anticoagulated due to recent retroperitoneal bleed. Additonally, cardiology was consulted last admission as this was a new diagnosis and they did not recommend anticoagulation inthe setting of multiple myeloma with risk for bleeding and as patient's CHA2DS2_VASc score was 1 DC'd asa per orders from Dr. Baig in [facility] records. Will leave amiodarone at 200 mg for now, Dr. Baig considering decreasing to 100 mg daily (11) HTN (hypertension): Hold lisinopril as above, continue metoprolol (12) Shoulder weakness: Left shoulder, ongoing since admission in July, possibly due to rotator cuff injury sustained during fall. Ortho was consulted during the last admission and recommended an MRI without contrast when medically stable. (13) Hypokalemia: Potassium 3.3 - will give 20 mEq po (14) Elevated INR: INR 1.3, appears his INR was elevated as far back as November 2017. 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 Collins presents today for weakness and nausea/vomiting which he says has been ongoing since his discharge from [facility] a month and a half ago. He had occasional lightheadedness, no chest pain or palpitations. One loose stool per day, no blood in his stool, no abdominal pain. He is chilled but no aches or fevers. No dysuria or hesitancy. He has healing left arm wounds but otherwise no skin issues. He has no cough but does feel somewhat short of breath. Mr. Collins was discharged from [facility] on 03/22 after being transferred from [facility]. He had been admitted to [facility] after being found down for about a day by a neighbor. He was septic with a very high fever and found to have Legionella pna and coag neg staph in his blood thought to be from an infected port. He was improving but then had a cardiac arrest with PEA and was found to have a large retroperitoneal bleed. This subsequently lead to his transfer to [facility]. From there he went to [facility] and then [facility] and continues to be a resident there. Pmhx: multiple myeloma s/p autologous stem cell transplantation x 2 , cardiac arrest, atrial fibrillation, peripheral neuropathy secondary to chemotherapy, hypertension, allergic rhinitis, Social: from [employer], on disability due to cancer, never smoker, rare alcohol Family: sister with DM, mother of complications from an MVA, father had prediabetes Allergies Allergy/AdvReac Type Severity Reaction Status Date / Time epinephrine Allergy Intermediate STATES Verified 04/16/20 13:32 GETS A "WARNER" levofloxacin Allergy Intermediate RASH Verified 04/16/20 13:32 Sulfa (Sulfonamide Allergy Intermediate Rash Verified 04/16/20 13:32 Antibiotics) house dust Allergy Unknown Itchy Verified 04/16/20 13:32 Eye(s) Home Medications Medication Instructions Recorded Confirmed Type Calcium 600 + D(3) 1 cap PO QAM 08/07/18 04/16/20 History acyclovir 400 mg PO BID 08/07/18 04/16/20 History aspirin 81 mg PO QAM 08/07/18 04/16/20 History cyanocobalamin (vitamin B-12) 1,000 mcg PO QAM 08/07/18 04/16/20 History [Vitamin B-12] gabapentin 300 mg PO TID 08/07/18 04/16/20 History guaifenesin [Mucinex] 600 mg PO Q12H PRN 08/07/18 04/16/20 History metoprolol tartrate 50 mg PO TID 08/07/18 04/16/20 History omega 4-isb-pip-fish oil [Fish Oil] 2 cap PO QAM 08/07/18 04/16/20 History ascorbic acid (vitamin C) 500 mg 500 mg PO QAM cap 02/23/19 04/16/20 History capsule potassium chloride 20 meq PO QAM 06/08/19 04/16/20 History doxepin 100 mg capsule 100 mg PO HS #90 cap 02/25/20 04/16/20 Rx acetaminophen [Tylenol Extra 500 mg PO Q6H PRN 02/29/20 04/16/20 History Strength] cetirizine 10 mg PO BID PRN 02/29/20 04/16/20 History docusate sodium [Colace] 100 mg PO DAILY PRN 02/29/20 04/16/20 History fluticasone propionate [Flonase] 2 spray INTRANASAL DAILY 02/29/20 04/16/20 History albuterol sulfate 2.5 mg INHALATION Q4H PRN 04/16/20 04/16/20 History amiodarone 200 mg PO DAILY 04/16/20 04/16/20 History carboxymethylcellulose sodium 1 drp OPB BID 04/16/20 04/16/20 History [Artificial Tears (cmc)] doxycycline hyclate 100 mg IV Q12H 04/16/20 04/16/20 History heparin (porcine) 5,000 unit SUBCUT Q8H 04/16/20 04/16/20 History lidocaine 1 patch TOPICAL DAILY 04/16/20 04/16/20 History lisinopril 5 mg PO DAILY 04/16/20 04/16/20 History loteprednol etabonate [Lotemax] 1 drp OPB DAILY 04/16/20 04/16/20 History miconazole nitrate 1 applic TOPICAL BID 04/16/20 04/16/20 History multivitamin 1 tab PO QAM 04/16/20 04/16/20 History oxycodone 2.5 mg PO Q4H PRN 04/16/20 04/16/20 History pantoprazole 20 mg PO BID 04/16/20 04/16/20 History polyethylene glycol 3350 [Miralax] 17 g PO DAILY PRN 04/16/20 04/16/20 History simethicone 80 mg PO QID PRN 04/16/20 04/16/20 History Past Med/Surg History Medical History Acute confusion Acute dehydration Acute kidney injury CKD (chronic kidney disease) Constipation Fever HTN (hypertension) Hypomagnesemia Multiple myeloma Multiple myeloma Neuropathy BL FOOT; 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 CANCER TREATMENT Pancytopenia Paroxysmal atrial fibrillation Retroperitoneal bleed Rhabdomyolysis Seasonal allergies Severe sepsis Surgical History History of bone marrow biopsy History of cataract surgery BL History of colonoscopy History of incision and drainage CYST - RT GROIN History of stem cell transplant History of surgery CYST REMOVED FROM COCCYX 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; 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 Family History Family/Other Family history of diabetes mellitus Social History Smoking Status: Never smoker Second Hand Exposure: No; Hx Alcohol Use: Yes Alcohol type: wine Hx Substance Use: No Preferred Language: Thai Communication Ability: Effective Test Bore Helper Required: No Beliefs That Will Affect Care: None marital status: Single Current Living Situation: Personal Care Facility Current Living Situation Comment: [facility] Other Information That Helps Us Care for You: No Feels Safe at Home: Yes Safety Concerns: Feels Safe At This Time Assistive Devices: Glasses Review of Systems Review of Systems: All systems reviewed & are unremarkable except as noted in HPI & below Physical Exam Physical Exam: General: no distress Eyes: normal inspection, PERLL Respiratory: chest non tender, clear to auscultation, normal breath sounds, no respiratory distress, no accessory muscle use Cardiac: regular rate and rhythm, no rub or gallop, no murmur, no edema, no jvd GI/: active bowel sounds, no abd pain or tenderness, soft, non distended Extremities: normal range of motion, normal strength, non tender Neuro: CN II - XII intact, alert Psych:Oriented x 3, normal mood and affect Skin: normal color, dry Results & Data Results & Data ([facility]) Vital Signs (Past 12 Hours) Vital Signs Temp Pulse Resp BP Pulse Ox 04/16/20 16:09 88 21 95/55 L 100 04/16/20 16:00 90 18 97/61 L 100 04/16/20 15:30 89 21 113/56 L 98 04/16/20 15:00 83 17 116/62 98 04/16/20 14:30 84 20 104/62 98 04/16/20 14:00 88 23 110/55 L 99 04/16/20 13:30 87 19 117/58 L 97 04/16/20 13:00 88 19 106/57 L 96 04/16/20 12:30 86 21 109/59 L 100 04/16/20 12:15 89 23 94/55 L 100 04/16/20 11:59 100 04/16/20 11:41 92 H 18 86/50 L 100 04/16/20 11:27 37.0 C 93 H 18 87/54 L 100 Supervising Physician Co-Signing Physician Notes I personally examined the patient and verified all [place] points of history and exam, discussed case, and agree with decision making with S Guillard [employer]. nausae/vomiting. probably hasn't eaten in about 2 days, only about 25-30oz fluids per day last few days. no cp no sob no f/c/s vitals noted fatigued and nasueated. heent nc at mm somewhat dry. cardio reg no r/m/g. lungs cta b/l no rr/w good effort abd soft maybe mild epigastric ttp no guarding no rebound no rigidity intractable nausea/vomiting/dehydration and subsequent ARF - exam c/w maybe mild gastritis but definitely appears ill and quite dehydrated. fluids, acid suppression, anti-emetics, encourage PO intake. if fails then GI for EGD questionable pneumonia - no sx, no hypoxia, but does have plausibility for aspiration - for now abx, follow closely - but if ongoing questionable at worst findings - then low threshold to dc abx. otherwise as above, no pharmacologic dvt prohp given recent retroperitoneal bleed. PG Care Time/CCT Total # of Minutes Spent Total Time Spent with Patient: Total time spent is greater than 50% in coordination of care (as documented) at patient's floor/unit and/or counseling patient: Coding Level of Care Code 68486 Initial Inpt Care Lvl 3 Diagnoses Pneumonia J18.9 Laterality: unspecified laterality Lung location: unspecified part of lung Pneumonia type: due to unspecified organism Nausea R11.0 Weakness R53.1 Acute dehydration E86.0 Anemia D64.9 Multiple myeloma C90.00 CHLOÉ (acute kidney injury) N17.9 Hypotension I95.9 CKD (chronic kidney disease) N18.9 Paroxysmal atrial fibrillation I48.0 HTN (hypertension) I10 Shoulder weakness R29.898 Hypokalemia E87.6 Elevated INR R79.1 Alkaline phosphatase elevation R74.8 Prediabetes R73.03 Neuropathy G62.9 DVT prophylaxis Z29.9 (1) Pneumonia Laterality: unspecified laterality Lung location: unspecified part of lung Pneumonia type: due to unspecified organism Qualified Code(s): J18.9 - Pneumonia, unspecified organism
[2020-04-16] MEDS ORDERED: DOCUSATE SODIUM 100 MG CAP PO PRN (19:14)
[2020-04-16] MEDS ORDERED: guaiFENesin 600 MG TABCR PO PRN (19:14)
[2020-04-16] MEDS ORDERED: POTASSIUM CHLORIDE CRTAB 20 MEQ TABCR PO STA (19:14)
[2020-04-16] MEDS ORDERED: SIMETHICONE 80 MG CHEW PO PRN (19:14)
[2020-04-16] MEDS ORDERED: POLYETHYLENE (MIRALAX) 17 GM PACK PO PRN (19:14)
[2020-04-16] MEDS ORDERED: ACETAMINOPHEN 500 MG TAB PO PRN ×2 (19:14→22:49)
[2020-04-16] MEDS ORDERED: CETIRIZINE HCL 10 MG TABLET PO PRN (19:14)
[2020-04-16] MEDS ORDERED: oxyCODONE HCL IR 5 MG TAB (IMMEDIATE RELEASE) PO PRN (19:24)
[2020-04-16] MEDS: SODIUM CHLORIDE 0.9% 1000ML 1,000 ML IV SCH (19:48)
[2020-04-16] MEDS ORDERED: cefTRIAXone SODIUM 2,000 MG in DEXTROSE 5% 50 ML IV SCH (20:00)
[2020-04-16] MEDS: PROCHLORPERAZINE MALEATE 5 MG TAB PO SCH (20:12)
[2020-04-16] MEDS: METOPROLOL TARTRATE 50 MG TAB PO SCH (20:13)
[2020-04-16] MEDS: PANTOprazole 40 MG TAB PO SCH (20:14)
[2020-04-16] MEDS: DOXEPIN HCL 50 MG CAPSULE PO SCH (20:14)
[2020-04-16] MEDS: ACYCLOVIR 400 MG TAB PO SCH (20:15)
[2020-04-16] MEDS ORDERED: GABAPENTIN 300 MG CAP PO SCH (21:00)
[2020-04-16] MEDS ORDERED: PANTOprazole 40 MG TAB PO SCH (21:00)
[2020-04-16] MEDS: MICONAZOLE NITRATE 2% CR 30 GM TUBE EXT SCH (21:01)
[2020-04-16] MEDS: DOXYCYCLINE HYCLATE 100 MG in DEXTROSE 5% 100 ML IV SCH (21:01)
[2020-04-16] MEDS ORDERED: SODIUM CHLORIDE 0.9% 1000ML 1,000 ML IV SCH (23:45)
[2020-04-17 00:14] LABS: Mean Corpuscular Hemoglobin 32.3 pg (25-34); Mean Corpuscular Hgb Conc 33.3 g/dL (32-36); Mean Corpuscular Volume 96.8 fL (80-100); Mean Platelet Volume 8.8 fL (7.4-10.4); Platelet Count 113 K/uL (130-400); RDW Coefficient of Variation 17.4 % (11.5-14.5); RDW Standard Deviation 55.6 fL (36.4-46.3); Red Blood Count 2.17 M/uL (4.7-6.1); White Blood Count 3.72 K/uL (4.8-10.8)
[2020-04-17 00:15] LABS: Eosinophils # (auto) 0.06 K/uL (0-0.5); Eosinophils % (auto) 1.6 %; Immature Granulocytes # (auto) 0.03 K/uL (0.00-0.02); Immature Granulocytes % (auto) 0.8 %; Lymphocytes # (auto) 0.41 K/uL (1.2-3.4); Monocytes # (auto) 0.18 K/uL (0.11-0.59); Monocytes % (auto) 4.8 %; Neutrophils # (auto) 3.04 K/uL (1.4-6.5); Neutrophils % (auto) 81.8 %; RBC Morphology Unremarkable
[2020-04-17 00:16] LABS: Albumin Level 1.8 gm/dl (3.4-5.0); BUN Creatinine Ratio 4.1 (10-20); Calcium 7.5 mg/dl (8.5-10.1); Creatinine Clr Calc Pharmacy 28.9 ml/min; Est GFR (African American) 25.6; Est GFR (Non-African American) 22.1; Potassium 3.7 mmol/L (3.5-5.1)
[2020-04-17 00:21] LABS: Albumin Globulin Ratio 0.4 (0.9-2); Bilirubin,Total 0.5 mg/dl (0.2-1); Globulin 4.2 gm/dl (2.5-4.0)
[2020-04-17] MEDS ORDERED: PIPERACILL/TAZOBAC CONSULT ACTIVE PRN (03:36)
[2020-04-17] MEDS ORDERED: PIPERACILLIN/TAZOBACTAM 3.375 GM in DEXTROSE 5% 100 ML IV ONE (04:00)
--- NOTE | 2020-04-17 04:49 | Communication Note ---
Date of Service: April 16, 2020 Notified of altered mental status and undetectable blood pressure in patient around 9 pm. Evaluated patient and he was found to be minimally responsive and hypotensive with MAP around 65. Patient was also febrile and tachycardic. Immediately bolused NSS x2 L and got CBC CMP and lactic acid pressure improved, as did patient's mental status patient having abdominal pain and his hemoglobin dropped from 9.1 to 7. Given his recent history of retroperitoneal hemorrhage and hypotension did get CT abdomen pelvis to evaluate retroperitoneal hemorrhage which showed marked improvement from previous scan without active bleeding. Patient is now +5 L since admission so drop in hemoglobin likely dilutional and overall anemia from previous major bleed. Will get hemoccult in subsequent stools to rule out GI losses. Patient doing better at present. Added zosyn for patient's pneumonia coverage as he does meet risk factors for pseudomonal infection given recent hospitalizations with IV antibiotics in last month. Fever resolved after tylenol dose. still waiting on lactate, Will get repeat CBC in AM and continue to monitor closely.
[2020-04-17] MEDS: SODIUM CHLORIDE 0.9% 1000ML 1,000 ML IV SCH ×2 (06:33→19:23)
[2020-04-17] MEDS: PROCHLORPERAZINE MALEATE 5 MG TAB PO SCH ×3 (06:34→21:13)
[2020-04-17 06:40] LABS: Hematocrit (blood only) 20.7 % (42-52); Hemoglobin 6.8 g/dL (14.0-18.0); Mean Corpuscular Hemoglobin 31.9 pg (25-34); Mean Corpuscular Hgb Conc 32.9 g/dL (32-36); Mean Corpuscular Volume 97.2 fL (80-100); Mean Platelet Volume 9.5 fL (7.4-10.4); Platelet Count 103 K/uL (130-400); RDW Coefficient of Variation 17.5 % (11.5-14.5); RDW Standard Deviation 56.7 fL (36.4-46.3); Red Blood Count 2.13 M/uL (4.7-6.1); White Blood Count 3.02 K/uL (4.8-10.8)
[2020-04-17 06:49] LABS: ALC (manual) 0.82 K/uL (1.2-3.4); ANC (manual) 2.13 K/uL (1.4-6.5); Eosinophils # (manual) 0.05 K/uL (0-0.5); Eosinophils % (manual) 1.7 %; Giant Platelets 1+; Large Granular Lymph # (manua 0.55 K/uL; Large Granular Lymph % (manual) 18.3 %; Lymphocytes # (manual) 0.26 K/uL (1.2-3.4); Lymphocytes % (manual) 8.7 %; Monocytes # (manual) 0.03 K/uL (0.11-0.59); Monocytes % (manual) 0.9 %; Neutrophils # (manual) 2.13 K/uL (1.4-6.5); Neutrophils % (manual) 70.4 %
[2020-04-17 06:50] LABS: BUN Creatinine Ratio 3.8 (10-20); Creatinine Clr Calc Pharmacy 28.3 ml/min; Est GFR (Non-African American) 21.5
[2020-04-17] MEDS ORDERED: SODIUM CHLORIDE 0.9% 250 ML IV PRN (07:02)
--- NOTE | 2020-04-17 07:42 | CT Scan Report ---
ABDOMEN AND PELVIS CT WITHOUT CONTRAST CT DOSE: 698.20 mGy.cm HISTORY: Right-sided abdominal Pain Hypotension TECHNIQUE: Multiaxial CT images of the abdomen and pelvis were performed without contrast. A dose lo wering technique was utilized adhering to the principles of ALARA. COMPARISON STUDY: Abdomen and pelvis CT 03/12/2020. FINDINGS: Small right pleural effusion has increased in size. Focal consolidation within the right lo wer lobe posteriorly favors compressive atelectasis from the pleural effusion. Trace left pleural eff usion has improved. No pneumoperitoneum. No pneumatosis. Innumerable lytic lesions are again seen thr oughout the visualized osseous structures consistent with the patient's history of multiple myeloma. Healing/healed bilateral pathologic rib fractures are noted. Cholelithiasis. No gallbladder wall thic kening. The unenhanced liver, spleen, adrenal glands, and pancreas are within normal limits. No renal or ureteral stones. No hydronephrosis. No retroperitoneal lymphadenopathy. Normal bladder. Suboptima l evaluation for bowel pathology due to the lack of intravenous and oral contrast. However, there is no definite bowel wall thickening or obstruction. A short segment of the appendix is identified and a ppears to be within normal limits. The right retroperitoneal hematoma has significantly decreased in size. Mild right perinephric edema remains unchanged. A right retroperitoneal hematoma measures a max imal thickness of 3.7 cm. This previously measured up to 9 cm. Tiny fat-containing umbilical hernia. Subcutaneous nodules within the anterior abdominal wall are likely secondary to medication injection. IMPRESSION: 1. Interval decrease in size in the small right retroperitoneal hematoma. 2. Small right pleural effusion and trace left pleural effusion. 3. Cholelithiasis. 4. No definite bowel wall thickening or obstruction. 5. Multiple lytic lesions seen throughout the osseous structures consistent with multiple myeloma. ACT 112: Negative or not required by law. Electronically signed by: Keyshawn Gtz M.D. 04/17/2020 7:40 AM
[2020-04-17] MEDS: ASCORBIC ACID 500 MG TAB PO SCH (08:26)
[2020-04-17] MEDS: MULTIVITAMIN TAB PO SCH (08:27)
[2020-04-17] MEDS: AMIODARONE 200 MG TAB PO SCH (08:27)
[2020-04-17] MEDS: CALCIUM 600MG + VIT D 400 IU TAB PO SCH (08:27)
[2020-04-17] MEDS: ACYCLOVIR 400 MG TAB PO SCH ×2 (08:28→21:13)
[2020-04-17] MEDS: PANTOprazole 40 MG TAB PO SCH (08:28)
[2020-04-17] MEDS: POTASSIUM CHLORIDE CRTAB 20 MEQ TABCR PO SCH (08:28)
[2020-04-17] MEDS: GABAPENTIN 100 MG CAP PO SCH ×3 (08:29→21:12)
[2020-04-17] MEDS: LIDOCAINE 5% 1 PATCH TD SCH (08:30)
[2020-04-17] MEDS: MICONAZOLE NITRATE 2% CR 30 GM TUBE EXT SCH ×2 (08:31→21:11)
[2020-04-17] MEDS ORDERED: OMEGA-3 (PURIFIED FISH OIL) 1 GM CAP PO SCH (09:00)
[2020-04-17] MEDS ORDERED: lisinopril 5 MG TAB PO SCH (09:00)
[2020-04-17] MEDS ORDERED: ASPIRIN 81 MG ECTAB PO SCH (09:00)
[2020-04-17] MEDS: DOXYCYCLINE HYCLATE 100 MG in DEXTROSE 5% 100 ML IV SCH (09:18)
[2020-04-17] MEDS: CYANOCOBALAMIN 500 MCG TABLET (VITAMIN B-12) PO SCH (09:20)
[2020-04-17] MEDS: FLUTICASONE PROPIONATE NA SPR 16 GM BTL NAE SCH (09:20)
--- NOTE | 2020-04-17 09:42 | Hospitalist Progress Note ---
Date of Service April 17, 2020 Assessment & Plan (1) Hypotension: Kirt Collins is a 70-year-old male with complex past medical history significant for multiple myeloma; who presents for nausea, vomiting, decreased oral intake, weakness over the last several weeks. Overnight had acute Dec ompensation of blood pressure that was unresponsive to two one liter normal saline bolus Acute hypotension: -Overnight patient had profound hypotension to systolic of 50s -Was nonresponsive to normal saline boluses, and patient continued to remain with increased somnolence -CT abdomen pelvis was conducted which demonstrated similar appearing retroperitoneal hematoma as closely demonstrated in March -Patient improved somnolence and blood pressure following infusion of 2 units PRBCs -Hemoglobin overnight decreased from admission 9.1 to this a.m. 6.8 -Continue to monitor H&H daily, repeat this afternoon Retroperitoneal bleed: -CT abdomen pelvis from March demonstrated retroperitoneal bleed at that time, as compared to CT from overnight appearance similar -Potential concerns that given inability to demonstrate improvement in retroperitoneal bleed with definite concerns for acute blood loss of undetermined source that the retroperitoneal bleed demonstrated on CT scan overnight with the exacerbation of previous retroperitoneal bleed that had not previously completely resolved -We will discuss potential options with general surgery colleagues for further elucidation of potential options -Continue to monitor H&H daily, patient consented for blood if no improvement Nausea/vomiting: -Patient continues to have nausea, however has not had vomiting since admission -Continue Protonix for potential calibrations from gastritis -Continue to evaluate following maintain stabilization from acute blood loss Weakness: -Weakness was present prior to acute blood loss, but worsened overnight -Given patient's recent retroperitoneal bleed, previous worsening of peritoneal bleed and limited oral intake, potential considerations for vitamin deficiency, iron deficiency, anemia related weakness -Pretransfusion iron panel pending -We will continue to monitor (2) Nausea: (3) Weakness: (4) Acute dehydration: (5) Retroperitoneal bleed: Admission and Anticipated Discharge Date Admission Date: April 16, 2020 Supervising Physician Co-Signing Physician Notes I personally examined the patient and verified all [place] points of history and ex am, discussed case, and agree with decision making with Dr Napier. more awake after transfusion. drank some, still hasn't eaten. nausea better. a little bit of abdominal discomfort. vitals noted nad heent nc at mmm breathing unlabored no accessory muscles good effort abd soft mild distention mild lower abdominal tenderness no epigastric tenderness no guarding no rebound acute hypotension / acute blood loss anemia - suspect recurrent retroperitoneal bleed (appears c/w hemorrhagic shock but without overt GI bleeding or other site of bleeding) - CT fairly stable but given time frame in between ??was it smaller and then current CT shows being bigger again. follow closely but appears more stable now. needed 2 units PRBC, may need more - but again stable for now. if it is rebleed into same space would expect tamponade at a lower loss than before. follow for FOBT and any overt GI bleeding - but wtihout any evident at this point appears less and less likely that GI bleeding is culprit. nausea - does seem improved. continue acid suppression and anti-emetics. UGI bleed would tie together nausae and blood loss anemia - but there's really no bedside/clinical evidence that this is the case otherwise as above Subjective Presented to bedside this morning approximately 0700 after discussions with night team, and demonstration of continued vital sign instability, with downtrending hemoglobin. On presentation to bedside, patient was with increased somnolence but arousable to verbal stimuli. Was able to intermittently make complete sentences and was able to follow along with discussions between nursing staff and with this provider. With the decreased hemoglobin demonstrated on labs from a.m. patient was consented for 2 units of packed red blood cells and subsequently transfusion. Throughout the day patient had improvement in mentation with improvement of somnolence, continues to remain with increased fatigue despite the transfusion of 2 units packed red blood cells. Patient was additionally complaining of some diffuse abdominal pain, with continued nausea, no vomiting, no changes to bowel movements, denies bright red blood per rectum, denies melena. Review of Systems Review of Systems: Unobtainable due to reduced consciousness Physical Exam Constitutional: well developed, well nourished and + lethargic; no acute distress Eyes: PERRL, conjunctivae normal, anicteric sclerae Respiratory: normal respiratory effort, lungs clear to auscultation Cardiovascular: Rate/Rhythm: regular rhythm and + tachycardic Heart Sounds: no gallop, no murmur and no cardiac rub Vessels: normal peripheral pulses; no JVD Gastrointestinal (Abdomen): Inspection/Auscultation: abdomen normal to inspection and normal bowel sounds; abdomen not distended and no abdominal wall ecchymosis Percussion/Palpation: + abdomen tender (Diffuse) and abdomen soft; no guarding and abdomen not rigid Skin: turgor not decreased, no rashes, no lesions and no jaundice Psychiatric: Orientation: alert and oriented x 3 Results & Data Results & Data ([facility]) Vital Signs (Past 12 Hours) Vital Signs Temp Pulse Pulse Resp BP BP Pulse Ox 04/17/20 08:03 37.1 C 87 20 107/65 97 04/17/20 02:07 91 H 04/17/20 01:19 85/50 L 04/16/20 23:47 36.7 C 91 H 20 114/61 98 04/16/20 23:18 88/49 L 04/16/20 22:48 38.4 C H 92 H 56/38 L 96 04/16/20 22:41 36.5 C 90 20 59/35 L 96 Laboratory Results 04/17/20 04/17/20 04/17/20 Range/Units 17:10 16:56 11:18 WBC (4.8-10.8) K/uL RBC (4.7-6.1) M/uL Hgb Pending (14.0-18.0) g/dL Hct Pending (42-52) % MCV (80-100) fL MCH (25-34) pg MCHC (32-36) g/dL RDW Std Deviation (36.4-46.3) fL RDW Coeff of Elvira (11.5-14.5) % Plt Count (130-400) K/uL MPV (7.4-10.4) fL Immature Gran % (Auto) % Neut % (Auto) % Lymph % (Auto) % Preston % (Auto) % Eos % (Auto) % Baso % (Auto) % Neut # (Auto) (1.4-6.5) K/uL Lymph # (Auto) (1.2-3.4) K/uL Preston # (Auto) (0.11-0.59) K/uL Eos # (Auto) (0-0.5) K/uL Baso # (Auto) (0-0.2) K/uL Immature Gran # (Auto) (0.00-0.02) K/uL Neutrophils % (Manual) % Lymphocytes % (Manual) % Monocytes % (Manual) % Eosinophils % (Manual) % Neutrophils # (Manual) (1.4-6.5) K/uL Total Absolute Neuts (1.4-6.5) K/uL Lymphocytes # (Manual) (1.2-3.4) K/uL Total Abs Lymphocytes (1.2-3.4) K/uL Monocytes # (Manual) (0.11-0.59) K/uL Eosinophils # (Manual) (0-0.5) K/uL Large Granular Lymphs % # Lrg Granular Lymphs K/uL Giant Platelets RBC Morphology Sodium (136-145) mmol/L Potassium (3.5-5.1) mmol/L Chloride (98-107) mmol/L Carbon Dioxide (21-32) mmol/L Anion Gap (3-11) BUN (7-18) mg/dl Creatinine (0.6-1.4) mg/dl Est Cr Clr Drug Dosing ml/min Est GFR ( Amer) Est GFR (Non-Af Amer) BUN/Creatinine Ratio (10-20) Glucose (70-99) mg/dl POC Glucose 106 H 121 H (70-99) mg/dl Lactate (0.4-2.0) mmol/L Calcium (8.5-10.1) mg/dl Total Bilirubin (0.2-1) mg/dl AST (15-37) U/L ALT (12-78) U/L Alkaline Phosphatase (45-117) U/L Total Protein (6.4-8.2) gm/dl Albumin (3.4-5.0) gm/dl Globulin (2.5-4.0) gm/dl Albumin/Globulin Ratio (0.9-2) Procalcitonin (0-0.5) ng/ml Blood Type Antibody Screen Crossmatch 04/17/20 04/17/20 04/17/20 Range/Units 07:41 07:30 05:48 WBC (4.8-10.8) K/uL RBC (4.7-6.1) M/uL Hgb (14.0-18.0) g/dL Hct (42-52) % MCV (80-100) fL MCH (25-34) pg MCHC (32-36) g/dL RDW Std Deviation (36.4-46.3) fL RDW Coeff of Elvira (11.5-14.5) % Plt Count (130-400) K/uL MPV (7.4-10.4) fL Immature Gran % (Auto) % Neut % (Auto) % Lymph % (Auto) % Preston % (Auto) % Eos % (Auto) % Baso % (Auto) % Neut # (Auto) (1.4-6.5) K/uL Lymph # (Auto) (1.2-3.4) K/uL Preston # (Auto) (0.11-0.59) K/uL Eos # (Auto) (0-0.5) K/uL Baso # (Auto) (0-0.2) K/uL Immature Gran # (Auto) (0.00-0.02) K/uL Neutrophils % (Manual) % Lymphocytes % (Manual) % Monocytes % (Manual) % Eosinophils % (Manual) % Neutrophils # (Manual) (1.4-6.5) K/uL Total Absolute Neuts (1.4-6.5) K/uL Lymphocytes # (Manual) (1.2-3.4) K/uL Total Abs Lymphocytes (1.2-3.4) K/uL Monocytes # (Manual) (0.11-0.59) K/uL Eosinophils # (Manual) (0-0.5) K/uL Large Granular Lymphs % # Lrg Granular Lymphs K/uL Giant Platelets RBC Morphology Sodium (136-145) mmol/L Potassium (3.5-5.1) mmol/L Chloride (98-107) mmol/L Carbon Dioxide (21-32) mmol/L Anion Gap (3-11) BUN (7-18) mg/dl Creatinine (0.6-1.4) mg/dl Est Cr Clr Drug Dosing ml/min Est GFR ( Amer) Est GFR (Non-Af Amer) BUN/Creatinine Ratio (10-20) Glucose (70-99) mg/dl POC Glucose 97 (70-99) mg/dl Lactate (0.4-2.0) mmol/L Calcium (8.5-10.1) mg/dl Total Bilirubin (0.2-1) mg/dl AST (15-37) U/L ALT (12-78) U/L Alkaline Phosphatase (45-117) U/L Total Protein (6.4-8.2) gm/dl Albumin (3.4-5.0) gm/dl Globulin (2.5-4.0) gm/dl Albumin/Globulin Ratio (0.9-2) Procalcitonin 0.30 (0-0.5) ng/ml Blood Type O Positive Antibody Screen NEGATIVE Crossmatch See Detail 04/17/20 04/17/20 04/16/20 Range/Units 05:48 05:48 23:45 WBC 3.02 L (4.8-10.8) K/uL RBC 2.13 L (4.7-6.1) M/uL Hgb 6.8 L* (14.0-18.0) g/dL Hct 20.7 L* (42-52) % MCV 97.2 (80-100) fL MCH 31.9 (25-34) pg MCHC 32.9 (32-36) g/dL RDW Std Deviation 56.7 H (36.4-46.3) fL RDW Coeff of Elvira 17.5 H (11.5-14.5) % Plt Count 103 L (130-400) K/uL MPV 9.5 (7.4-10.4) fL Immature Gran % (Auto) % Neut % (Auto) % Lymph % (Auto) % Preston % (Auto) % Eos % (Auto) % Baso % (Auto) % Neut # (Auto) (1.4-6.5) K/uL Lymph # (Auto) (1.2-3.4) K/uL Preston # (Auto) (0.11-0.59) K/uL Eos # (Auto) (0-0.5) K/uL Baso # (Auto) (0-0.2) K/uL Immature Gran # (Auto) (0.00-0.02) K/uL Neutrophils % (Manual) 70.4 % Lymphocytes % (Manual) 8.7 % Monocytes % (Manual) 0.9 % Eosinophils % (Manual) 1.7 % Neutrophils # (Manual) 2.13 (1.4-6.5) K/uL Total Absolute Neuts 2.13 (1.4-6.5) K/uL Lymphocytes # (Manual) 0.26 L (1.2-3.4) K/uL Total Abs Lymphocytes 0.82 L (1.2-3.4) K/uL Monocytes # (Manual) 0.03 L (0.11-0.59) K/uL Eosinophils # (Manual) 0.05 (0-0.5) K/uL Large Granular Lymphs 18.3 % # Lrg Granular Lymphs 0.55 K/uL Giant Platelets 1+ RBC Morphology Sodium 141 (136-145) mmol/L Potassium 4.0 (3.5-5.1) mmol/L Chloride 116 H (98-107) mmol/L Carbon Dioxide 19 L (21-32) mmol/L Anion Gap 6.0 (3-11) BUN 11 (7-18) mg/dl Creatinine 2.97 H (0.6-1.4) mg/dl Est Cr Clr Drug Dosing 28.3 ml/min Est GFR ( Amer) 25.0 Est GFR (Non-Af Amer) 21.5 BUN/Creatinine Ratio 3.8 L (10-20) Glucose 87 (70-99) mg/dl POC Glucose (70-99) mg/dl Lactate 1.2 (0.4-2.0) mmol/L Calcium 7.0 L (8.5-10.1) mg/dl Total Bilirubin (0.2-1) mg/dl AST (15-37) U/L ALT (12-78) U/L Alkaline Phosphatase (45-117) U/L Total Protein (6.4-8.2) gm/dl Albumin (3.4-5.0) gm/dl Globulin (2.5-4.0) gm/dl Albumin/Globulin Ratio (0.9-2) Procalcitonin (0-0.5) ng/ml Blood Type Antibody Screen Crossmatch 04/16/20 04/16/20 04/16/20 Range/Units 23:45 23:45 22:31 WBC 3.72 L (4.8-10.8) K/uL RBC 2.17 L (4.7-6.1) M/uL Hgb 7.0 L (14.0-18.0) g/dL Hct 21.0 L (42-52) % MCV 96.8 (80-100) fL MCH 32.3 (25-34) pg MCHC 33.3 (32-36) g/dL RDW Std Deviation 55.6 H (36.4-46.3) fL RDW Coeff of Elvira 17.4 H (11.5-14.5) % Plt Count 113 L (130-400) K/uL MPV 8.8 (7.4-10.4) fL Immature Gran % (Auto) 0.8 % Neut % (Auto) 81.8 % Lymph % (Auto) 11.0 % Preston % (Auto) 4.8 % Eos % (Auto) 1.6 % Baso % (Auto) 0.0 % Neut # (Auto) 3.04 (1.4-6.5) K/uL Lymph # (Auto) 0.41 L (1.2-3.4) K/uL Preston # (Auto) 0.18 (0.11-0.59) K/uL Eos # (Auto) 0.06 (0-0.5) K/uL Baso # (Auto) 0.00 (0-0.2) K/uL Immature Gran # (Auto) 0.03 H (0.00-0.02) K/uL Neutrophils % (Manual) % Lymphocytes % (Manual) % Monocytes % (Manual) % Eosinophils % (Manual) % Neutrophils # (Manual) (1.4-6.5) K/uL Total Absolute Neuts (1.4-6.5) K/uL Lymphocytes # (Manual) (1.2-3.4) K/uL Total Abs Lymphocytes (1.2-3.4) K/uL Monocytes # (Manual) (0.11-0.59) K/uL Eosinophils # (Manual) (0-0.5) K/uL Large Granular Lymphs % # Lrg Granular Lymphs K/uL Giant Platelets RBC Morphology Unremarkable Sodium 143 (136-145) mmol/L Potassium 3.7 (3.5-5.1) mmol/L Chloride 115 H (98-107) mmol/L Carbon Dioxide 20 L (21-32) mmol/L Anion Gap 8.0 (3-11) BUN 12 (7-18) mg/dl Creatinine 2.91 H (0.6-1.4) mg/dl Est Cr Clr Drug Dosing 28.9 ml/min Est GFR ( Amer) 25.6 Est GFR (Non-Af Amer) 22.1 BUN/Creatinine Ratio 4.1 L (10-20) Glucose 104 H (70-99) mg/dl POC Glucose 131 H (70-99) mg/dl Lactate (0.4-2.0) mmol/L Calcium 7.5 L (8.5-10.1) mg/dl Total Bilirubin 0.5 (0.2-1) mg/dl AST 31 (15-37) U/L ALT 17 (12-78) U/L Alkaline Phosphatase 150 H (45-117) U/L Total Protein 6.0 L D (6.4-8.2) gm/dl Albumin 1.8 L (3.4-5.0) gm/dl Globulin 4.2 H (2.5-4.0) gm/dl Albumin/Globulin Ratio 0.4 L (0.9-2) Procalcitonin (0-0.5) ng/ml Blood Type Antibody Screen Crossmatch 04/16/20 Range/Units 22:13 WBC (4.8-10.8) K/uL RBC (4.7-6.1) M/uL Hgb (14.0-18.0) g/dL Hct (42-52) % MCV (80-100) fL MCH (25-34) pg MCHC (32-36) g/dL RDW Std Deviation (36.4-46.3) fL RDW Coeff of Elvira (11.5-14.5) % Plt Count (130-400) K/uL MPV (7.4-10.4) fL Immature Gran % (Auto) % Neut % (Auto) % Lymph % (Auto) % Preston % (Auto) % Eos % (Auto) % Baso % (Auto) % Neut # (Auto) (1.4-6.5) K/uL Lymph # (Auto) (1.2-3.4) K/uL Preston # (Auto) (0.11-0.59) K/uL Eos # (Auto) (0-0.5) K/uL Baso # (Auto) (0-0.2) K/uL Immature Gran # (Auto) (0.00-0.02) K/uL Neutrophils % (Manual) % Lymphocytes % (Manual) % Monocytes % (Manual) % Eosinophils % (Manual) % Neutrophils # (Manual) (1.4-6.5) K/uL Total Absolute Neuts (1.4-6.5) K/uL Lymphocytes # (Manual) (1.2-3.4) K/uL Total Abs Lymphocytes (1.2-3.4) K/uL Monocytes # (Manual) (0.11-0.59) K/uL Eosinophils # (Manual) (0-0.5) K/uL Large Granular Lymphs % # Lrg Granular Lymphs K/uL Giant Platelets RBC Morphology Sodium (136-145) mmol/L Potassium (3.5-5.1) mmol/L Chloride (98-107) mmol/L Carbon Dioxide (21-32) mmol/L Anion Gap (3-11) BUN (7-18) mg/dl Creatinine (0.6-1.4) mg/dl Est Cr Clr Drug Dosing ml/min Est GFR ( Amer) Est GFR (Non-Af Amer) BUN/Creatinine Ratio (10-20) Glucose (70-99) mg/dl POC Glucose 113 H (70-99) mg/dl Lactate (0.4-2.0) mmol/L Calcium (8.5-10.1) mg/dl Total Bilirubin (0.2-1) mg/dl AST (15-37) U/L ALT (12-78) U/L Alkaline Phosphatase (45-117) U/L Total Protein (6.4-8.2) gm/dl Albumin (3.4-5.0) gm/dl Globulin (2.5-4.0) gm/dl Albumin/Globulin Ratio (0.9-2) Procalcitonin (0-0.5) ng/ml Blood Type Antibody Screen Crossmatch Medications Administered Current Inpatient Medications Acetaminophen (Acetaminophen 500 Mg Tab) 500 mg PO Q6H PRN PRN Reason: Headache Stop: 05/16/20 19:13 Acetaminophen (Acetaminophen 500 Mg Tab) 1,000 mg PO Q6H PRN PRN Reason: Fever Stop: 05/16/20 22:48 Last Admin: 04/17/20 00:04 Dose: 1,000 mg Documented by: Acyclovir (Acyclovir 400 Mg Tab) 400 mg PO BID [place]ANDE Stop: 05/16/20 20:59 Last Admin: 04/17/20 08:28 Dose: 400 mg Documented by: Amiodarone HCl (Amiodarone 200 Mg Tab) 200 mg PO DAILY [facility] Stop: 05/17/20 08:59 Last Admin: 04/17/20 08:27 Dose: 200 mg Documented by: Ascorbic Acid (Ascorbic Acid 500 Mg Tab) 500 mg PO QAM [facility] Stop: 05/17/20 08:59 Last Admin: 04/17/20 08:26 Dose: 500 mg Documented by: Cetirizine HCl (Cetirizine Hcl 10 Mg Tablet) 10 mg PO BID PRN PRN Reason: Allergy Symptoms Stop: 05/16/20 19:13 Cyanocobalamin (Cyanocobalamin 500 Mcg Tablet (Vitamin B-12)) 1,000 mcg PO QAM [facility] Stop: 05/17/20 08:59 Last Admin: 04/17/20 09:20 Dose: 1,000 mcg Documented by: Docusate Sodium (Docusate Sodium 100 Mg Cap) 100 mg PO DAILY PRN PRN Reason: Constipation Stop: 05/16/20 19:13 Doxepin HCl (Doxepin Hcl 50 Mg Capsule) 100 mg PO HS [facility] Stop: 05/16/20 20:59 Last Admin: 04/16/20 20:14 Dose: 100 mg Documented by: Fluticasone Propionate (Fluticasone Propionate Na Spr 16 Gm Btl) 2 sprays MARSHA DAILY [facility] Stop: 05/17/20 08:59 Last Admin: 04/17/20 09:20 Dose: 2 sprays Documented by: Gabapentin (Gabapentin 100 Mg Cap) 200 mg PO TID [facility] Stop: 05/17/20 08:59 Last Admin: 04/17/20 13:30 Dose: 200 mg Documented by: Guaifenesin (Guaifenesin 600 Mg Tabcr) 600 mg PO Q12H PRN PRN Reason: Congestion Stop: 05/16/20 19:13 Sodium Chloride (Nss 1000ml) 1,000 mls @ 125 mls/hr IV .Q8H [facility] Stop: 05/16/20 19:13 Last Infusion: 04/17/20 14:50 Dose: 125 mls/hr Documented by: Pantoprazole Sodium 40 mg/ (Dextrose) 100 mls @ 20 mls/hr IV Q5H [facility] Stop: 05/17/20 09:14 Last Admin: 12/10/20 15:03 Dose: 8 mg/hr, 20 mls/hr Documented by: Lidocaine (Lidocaine 5% 1 Patch) 1 patch TD DAILY [facility] Stop: 05/17/20 08:59 Last Admin: 04/17/20 08:30 Dose: Not Given Documented by: Lisinopril (Lisinopril 5 Mg Tab) 5 mg PO DAILY [facility] Stop: 05/17/20 08:59 Last Admin: 04/17/20 08:26 Dose: 5 mg Documented by: Metoprolol Tartrate (Metoprolol Tartrate 50 Mg Tab) 50 mg PO TID [facility] Stop: 05/16/20 20:59 Last Admin: 04/16/20 20:13 Dose: 50 mg Documented by: Miconazole Nitrate (Miconazole Nitrate 2% Cr 30 Gm Tube) 1 appln EXT BID [facility] Stop: 05/16/20 20:59 Last Admin: 04/17/20 08:31 Dose: Not Given Documented by: Miscellaneous (Remove Lidoderm Patch) 1 ea N/A DAILY@2100 [facility] Stop: 05/16/20 20:59 Last Admin: 04/16/20 20:21 Dose: Not Given Documented by: Multivitamins (Multivitamin Tab) [facility] [place] Stop: 05/17/20 08:59 Last Admin: 04/17/20 08:27 Dose: 1 tab Documented by: Multivitamins/Minerals (Calcium 600mg + Vit D 400 Iu Tab) 1 tab PO QAM [facility] Stop: 05/17/20 08:59 Last Admin: 04/17/20 08:27 Dose: 1 tab Documented by: Oxycodone HCl (Oxycodone Hcl Ir 5 Mg Tab (Immediate Release)) 5 mg PO Q4H PRN PRN Reason: Moderate Pain (Scale Score 5-6) Stop: 04/30/20 19:23 Polyethylene Glycol (Polyethylene (Miralax) 17 Gm Pack) 17 gm PO DAILY PRN PRN Reason: Constipation Stop: 05/16/20 19:13 Potassium Chloride (Potassium Chloride Crtab 20 Meq Tabcr) 20 meq PO QAM [facility] Stop: 05/17/20 08:59 Last Admin: 04/17/20 08:28 Dose: 20 meq Documented by: Prochlorperazine (Prochlorperazine Maleate 5 Mg Tab) 5 mg PO Q8 [facility] Stop: 05/16/20 19:44 Last Admin: 04/17/20 13:30 Dose: 5 mg Documented by: Simethicone (Simethicone 80 Mg Chew) 80 mg PO QID PRN PRN Reason: abdominal bloating/ gas pain Stop: 05/16/20 19:13 Resident Activity Tracking Resident Involvement: Resident Care Provided Care Provided: Adult Hospital Medicine
[2020-04-17] MEDS ORDERED: PIPERACILLIN/TAZOBACTAM 3.375 GM in DEXTROSE 5% 100 ML IV SCH (10:00)
[2020-04-17] MEDS: PANTOprazole 40 MG in DEXTROSE 5% 100 ML IV SCH ×3 (10:11→19:24)
[2020-04-17] MEDS ORDERED: Nursing to Pharmacy Communication SCH (15:15)
--- NOTE | 2020-04-17 18:15 | Billing Data ---
Date of Service April 17, 2020 Coding Level of Care Code 77123 Subseq Hosp Care Lvl 3
[2020-04-17 18:21] LABS: Hematocrit (blood only) 29.7 % (42-52)
[2020-04-17 18:28] LABS: Ferritin 1277.9 ng/ml (8-388)
[2020-04-17] MEDS ORDERED: DOXYCYCLINE HYCLATE 100 MG CAP PO SCH (21:00)
[2020-04-17] MEDS: DOXEPIN HCL 50 MG CAPSULE PO SCH (21:12)
[2020-04-18] MEDS: PANTOprazole 40 MG in DEXTROSE 5% 100 ML IV SCH ×5 (00:21→20:20)
[2020-04-18] MEDS: SODIUM CHLORIDE 0.9% 1000ML 1,000 ML IV SCH ×2 (03:36→11:32)
[2020-04-18] MEDS: PROCHLORPERAZINE MALEATE 5 MG TAB PO SCH ×3 (06:29→21:47)
--- NOTE | 2020-04-18 06:47 | Electrocardiogram Report ---
Test Reason : Blood Pressure : / mmHG Vent. Rate : 086 BPM Atrial Rate : 086 BPM P-R Int : 170 ms QRS Dur : 090 ms QT Int : 372 ms P-R-T Axes : 055 045 069 degrees QTc Int : 445 ms Normal sinus rhythm Low voltage QRS Nonspecific T wave abnormality Abnormal ECG When compared with ECG of 16-APR-2020 11:23, QT has shortened Confirmed by Tam Munoz ([id number]) on 04/18/2020 6:46:42 AM Referred By: REFERRED SELF Confirmed By:Tam Munoz
[2020-04-18 07:46] LABS: Hematocrit (blood only) 26.7 % (42-52)
[2020-04-18 08:03] LABS: BUN Creatinine Ratio 3.7 (10-20); Calcium 7.2 mg/dl (8.5-10.1); Creatinine Clr Calc Pharmacy 30.3 ml/min; Est GFR (African American) 26.9; Est GFR (Non-African American) 23.2; Potassium 3.4 mmol/L (3.5-5.1)
[2020-04-18] MEDS: ACYCLOVIR 400 MG TAB PO SCH ×2 (10:03→20:21)
[2020-04-18] MEDS: GABAPENTIN 100 MG CAP PO SCH ×3 (10:03→20:21)
[2020-04-18] MEDS: FLUTICASONE PROPIONATE NA SPR 16 GM BTL NAE SCH (10:03)
[2020-04-18] MEDS: MULTIVITAMIN TAB PO SCH (10:04)
[2020-04-18] MEDS: AMIODARONE 200 MG TAB PO SCH (10:04)
[2020-04-18] MEDS: POTASSIUM CHLORIDE CRTAB 20 MEQ TABCR PO SCH (10:04)
[2020-04-18] MEDS: LIDOCAINE 5% 1 PATCH TD SCH (10:04)
[2020-04-18] MEDS: CALCIUM 600MG + VIT D 400 IU TAB PO SCH ×2 (10:05→10:18)
[2020-04-18] MEDS: ASCORBIC ACID 500 MG TAB PO SCH (10:05)
[2020-04-18] MEDS: CYANOCOBALAMIN 500 MCG TABLET (VITAMIN B-12) PO SCH (10:05)
[2020-04-18] MEDS: MICONAZOLE NITRATE 2% CR 30 GM TUBE EXT SCH ×2 (10:07→20:23)
--- NOTE | 2020-04-18 15:53 | Hospitalist Progress Note ---
Date of Service April 18, 2020 Assessment & Plan (1) Hypotension: Kirt Collins is a 70-year-old male with complex past medical history significant for multiple myeloma; who presents for nausea, vomiting, decreased oral intake, weakness over the last several weeks. Overnight had acute Dec ompensation of blood pressure that was unresponsive to two one liter normal saline bolus Acute hypotension: -Overnight patient had profound hypotension to systolic of 50s -Was nonresponsive to normal saline boluses, and patient continued to remain with increased somnolence -CT abdomen pelvis was conducted which demonstrated similar appearing retroperitoneal hematoma as closely demonstrated in March -Patient improved somnolence and blood pressure following infusion of 2 units PRBCs -Hemoglobin stable throughout the day -Continue to monitor H&H daily, repeat this evening Retroperitoneal bleed: -CT abdomen pelvis from March demonstrated retroperitoneal bleed at that time, as compared to CT from overnight appearance similar -Potential concerns that given inability to demonstrate improvement in retroperitoneal bleed with definite concerns for acute blood loss of undetermined source that the retroperitoneal bleed demonstrated on CT scan overnight with the exacerbation of previous retroperitoneal bleed that had not previously completely resolved -We will discuss potential options with general surgery colleagues for further elucidation of potential options -Continue to monitor H&H daily, patient consented for blood if no improvement Nausea/vomiting: -Patient continues to have nausea, however has not had vomiting since admission -Continue Protonix for potential calibrations from gastritis -Continue to evaluate following maintain stabilization from acute blood loss Weakness: -Weakness was present prior to acute blood loss, but worsened overnight -Given patient's recent retroperitoneal bleed, previous worsening of peritoneal bleed and limited oral intake, potential considerations for vitamin deficiency, iron deficiency, anemia related weakness -likely secondary to decreased oral intake -We will continue to monitor Decreased oral intake: -patient with reduced appetite and decreased oral intake for several weeks -trial Remeron 15mg QHS for appetite stimulation (2) Nausea: (3) Weakness: (4) Acute dehydration: (5) Retroperitoneal bleed: Admission and Anticipated Discharge Date Admission Date: April 17, 2020 Supervising Physician Co-Signing Physician Notes I personally examined the patient and verified all [place] points of history and exam, discussed case, and agree with decision making with Dr Napier.. eating better, not a lot but better. no n/v. belly feeling ok. less fatigued. vitals noted nad heent nc at mmm breathing unlabored no accessory muscles good effort skinno rashes no pallor or icterus intractable nausea/vomiting/dehydration and subsequent ARF - improving. continue ppi and antiemetics. eating better, but still not great - trial of remeron HS to help appetite questionable pneumonia - no sx, no hypoxia, off abx and doing well acute hypotension / acute blood loss anemia - suspect recurrent retroperitoneal bleed (appears c/w hemorrhagic shock but without overt GI bleeding or other site of bleeding) - CT fairly stable but given time frame in between ??was it smaller and then current CT shows being bigger again. follow closely but appears more stable now. needed 2 units PRBC, may need more - but again stable for now. if it is rebleed into same space would expect tamponade at a lower loss than before. follow for FOBT and any overt GI bleeding - but wtihout any evident at this point appears less and less likely that GI bleeding is culprit. follow CBC, since rebleed - probably repeat CT for stability over time otherwise as above, no pharmacologic dvt proph given retroperitoneal bleed. Subjective Patient feels considerably improved this AM, no longer having increased fatigue or somnelence, was able to work with PT/OT and feels like his strength is a little better but is struggling to know why his overall fatigue continues. Was able to eat better throughout the day without nausea or vomiting or worsening of abdominal pain. Wants help with deciding if it would be worthwhile to continue to hold [facility] or if he should release it because he might have to stay awhile. Educated that the bed hold is probably the better decision at this time, as he continues to improve but that it will be something that he has to review on a day to day basis. Review of Systems Review of Systems: All systems reviewed & are unremarkable except as noted in Subjective Physical Exam Constitutional: well developed and well nourished; no acute distress Eyes: PERRL, conjunctivae normal, anicteric sclerae Respiratory: normal respiratory effort, lungs clear to auscultation Cardiovascular: Rate/Rhythm: regular rhythm and + tachycardic Heart Sounds: no gallop, no murmur and no cardiac rub Vessels: normal peripheral pulses; no JVD Gastrointestinal (Abdomen): Inspection/Auscultation: abdomen normal to inspection and normal bowel sounds; abdomen not distended and no abdominal wall ecchymosis Percussion/Palpation: + abdomen tender (non-focal) and abdomen soft; no guarding and abdomen not rigid Skin: turgor not decreased, no rashes, no lesions and no jaundice Psychiatric: Orientation: alert and oriented x 3 Results & Data Results & Data ([facility]) Vital Signs (Past 12 Hours) Vital Signs Temp Pulse Pulse Resp BP Pulse Ox 04/18/20 15:09 36.7 C 93 H 20 127/72 99 04/18/20 11:41 36.7 C 100 H 20 115/73 99 04/18/20 08:04 36.7 C 98 H 20 119/71 96 04/18/20 07:32 96 H 04/18/20 04:00 36.6 C 96 H 18 114/66 96 Laboratory Results 04/18/20 04/18/20 04/18/20 Range/Units 11:29 07:43 06:52 Hgb (14.0-18.0) g/dL Hct (42-52) % Sodium (136-145) mmol/L Potassium (3.5-5.1) mmol/L Chloride (98-107) mmol/L Carbon Dioxide (21-32) mmol/L Anion Gap (3-11) BUN (7-18) mg/dl Creatinine (0.6-1.4) mg/dl Est Cr Clr Drug Dosing ml/min Est GFR ( Amer) Est GFR (Non-Af Amer) BUN/Creatinine Ratio (10-20) Glucose (70-99) mg/dl POC Glucose 118 H 94 (70-99) mg/dl Calcium (8.5-10.1) mg/dl Iron (35-175) mcg/dl TIBC (250-450) mcg/dl Ferritin (8-388) ng/ml Vitamin B12 612 (193-986) pg/ml Folate 10.00 (>5.38) ng/ml 04/18/20 04/18/20 04/17/20 Range/Units 06:52 06:52 20:14 Hgb 9.0 L (14.0-18.0) g/dL Hct 26.7 L (42-52) % Sodium 146 H (136-145) mmol/L Potassium 3.4 L (3.5-5.1) mmol/L Chloride 121 H (98-107) mmol/L Carbon Dioxide 19 L (21-32) mmol/L Anion Gap 6.0 (3-11) BUN 10 (7-18) mg/dl Creatinine 2.79 H (0.6-1.4) mg/dl Est Cr Clr Drug Dosing 30.3 ml/min Est GFR ( Amer) 26.9 Est GFR (Non-Af Amer) 23.2 BUN/Creatinine Ratio 3.7 L (10-20) Glucose 89 (70-99) mg/dl POC Glucose 112 H (70-99) mg/dl Calcium 7.2 L (8.5-10.1) mg/dl Iron (35-175) mcg/dl TIBC (250-450) mcg/dl Ferritin (8-388) ng/ml Vitamin B12 (193-986) pg/ml Folate (>5.38) ng/ml 04/17/20 04/17/20 04/17/20 Range/Units 17:10 16:56 05:48 Hgb 10.0 L D (14.0-18.0) g/dL Hct 29.7 L (42-52) % Sodium (136-145) mmol/L Potassium (3.5-5.1) mmol/L Chloride (98-107) mmol/L Carbon Dioxide (21-32) mmol/L Anion Gap (3-11) BUN (7-18) mg/dl Creatinine (0.6-1.4) mg/dl Est Cr Clr Drug Dosing ml/min Est GFR ( Amer) Est GFR (Non-Af Amer) BUN/Creatinine Ratio (10-20) Glucose (70-99) mg/dl POC Glucose 106 H (70-99) mg/dl Calcium (8.5-10.1) mg/dl Iron 54 (35-175) mcg/dl TIBC 154 L (250-450) mcg/dl Ferritin 1277.9 H (8-388) ng/ml Vitamin B12 (193-986) pg/ml Folate (>5.38) ng/ml Medications Administered Current Inpatient Medications Acetaminophen (Acetaminophen 500 Mg Tab) 500 mg PO Q6H PRN PRN Reason: Headache Stop: 05/16/20 19:13 Acetaminophen (Acetaminophen 500 Mg Tab) 1,000 mg PO Q6H PRN PRN Reason: Fever Stop: 05/16/20 22:48 Last Admin: 12/10/20 00:04 Dose: 1,000 mg Documented by: Acyclovir (Acyclovir 400 Mg Tab) 400 mg PO BID [facility] Stop: 05/16/20 20:59 Last Admin: 04/18/20 10:03 Dose: 400 mg Documented by: Amiodarone HCl (Amiodarone 200 Mg Tab) 200 mg PO DAILY [facility] Stop: 05/17/20 08:59 Last Admin: 04/18/20 10:04 Dose: 200 mg Documented by: Ascorbic Acid (Ascorbic Acid 500 Mg Tab) 500 mg PO QAM [facility] Stop: 05/17/20 08:59 Last Admin: 04/18/20 10:05 Dose: 500 mg Documented by: Cetirizine HCl (Cetirizine Hcl 10 Mg Tablet) 10 mg PO BID PRN PRN Reason: Allergy Symptoms Stop: 05/16/20 19:13 Cyanocobalamin (Cyanocobalamin 500 Mcg Tablet (Vitamin B-12)) 1,000 mcg PO QAM [facility] Stop: 05/17/20 08:59 Last Admin: 04/18/20 10:05 Dose: 1,000 mcg Documented by: Docusate Sodium (Docusate Sodium 100 Mg Cap) 100 mg PO DAILY PRN PRN Reason: Constipation Stop: 05/16/20 19:13 Doxepin HCl (Doxepin Hcl 50 Mg Capsule) 100 mg PO HS [facility] Stop: 05/16/20 20:59 Last Admin: 04/17/20 21:12 Dose: 100 mg Documented by: Fluticasone Propionate (Fluticasone Propionate Na Spr 16 Gm Btl) 2 sprays MARSHA DAILY [facility] Stop: 05/17/20 08:59 Last Admin: 04/18/20 10:03 Dose: Not Given Documented by: Gabapentin (Gabapentin 100 Mg Cap) 200 mg PO TID [facility] Stop: 05/17/20 08:59 Last Admin: 04/18/20 14:24 Dose: 200 mg Documented by: Guaifenesin (Guaifenesin 600 Mg Tabcr) 600 mg PO Q12H PRN PRN Reason: Congestion Stop: 05/16/20 19:13 Sodium Chloride (Nss 1000ml) 1,000 mls @ 125 mls/hr IV .Q8H [facility] Stop: 05/16/20 19:13 Last Admin: 04/18/20 11:32 Dose: 125 mls/hr Documented by: Pantoprazole Sodium 40 mg/ (Dextrose) 100 mls @ 20 mls/hr IV Q5H [facility] Stop: 05/17/20 09:14 Last Admin: 04/18/20 11:30 Dose: 8 mg/hr, 20 mls/hr Documented by: Lidocaine (Lidocaine 5% 1 Patch) 1 patch TD DAILY [facility] Stop: 05/17/20 08:59 Last Admin: 04/18/20 10:04 Dose: Not Given Documented by: Lisinopril (Lisinopril 5 Mg Tab) 5 mg PO DAILY [facility] Stop: 05/17/20 08:59 Last Admin: 04/17/20 08:26 Dose: 5 mg Documented by: Metoprolol Tartrate (Metoprolol Tartrate 50 Mg Tab) 50 mg PO TID [facility] Stop: 05/16/20 20:59 Last Admin: 04/16/20 20:13 Dose: 50 mg Documented by: Miconazole Nitrate (Miconazole Nitrate 2% Cr 30 Gm Tube) 1 appln EXT BID [facility] Stop: 05/16/20 20:59 Last Admin: 04/18/20 10:07 Dose: 1 appln Documented by: Mirtazapine (Mirtazapine Tab 15 Mg Tab) 15 mg PO HS [facility] Stop: 05/18/20 20:59 Miscellaneous (Remove Lidoderm Patch) 1 ea N/A DAILY@2100 [facility] Stop: 05/16/20 20:59 Last Admin: 04/17/20 21:12 Dose: Not Given Documented by: Multivitamins (Multivitamin Tab) 1 tab PO QAM [facility] Stop: 05/17/20 08:59 Last Admin: 04/18/20 10:04 Dose: 1 tab Documented by: Multivitamins/Minerals (Calcium 600mg + Vit D 400 Iu Tab) 1 tab PO QAM [facility] Stop: 05/17/20 08:59 Last Admin: 04/18/20 10:18 Dose: Not Given Documented by: Oxycodone HCl (Oxycodone Hcl Ir 5 Mg Tab (Immediate Release)) 5 mg PO Q4H PRN PRN Reason: Moderate Pain (Scale Score 5-6) Stop: 04/30/20 19:23 Polyethylene Glycol (Polyethylene (Miralax) 17 Gm Pack) 17 gm PO DAILY PRN PRN Reason: Constipation Stop: 05/16/20 19:13 Potassium Chloride (Potassium Chloride Crtab 20 Meq Tabcr) 20 meq PO QAM [place]DE Stop: 05/17/20 08:59 Last Admin: 04/18/20 10:04 Dose: 20 meq Documented by: Prochlorperazine (Prochlorperazine Maleate 5 Mg Tab) 5 mg PO Q8 [facility] Stop: 05/16/20 19:44 Last Admin: 04/18/20 14:24 Dose: 5 mg Documented by: Simethicone (Simethicone 80 Mg Chew) 80 mg PO QID PRN PRN Reason: abdominal bloating/ gas pain Stop: 05/16/20 19:13 Resident Activity Tracking Resident Involvement: Resident Care Provided Care Provided: Adult Hospital Medicine
--- NOTE | 2020-04-18 17:54 | Billing Data ---
Date of Service April 18, 2020 Coding Level of Care Code 34602 Subseq Hosp Care Lvl 3
[2020-04-18] MEDS: SODIUM CHLOR 0.45% + 20MEQ KCL 20 MEQ/1,000 ML BAG IV SCH (18:54)
[2020-04-18] MEDS: DOXEPIN HCL 50 MG CAPSULE PO SCH (20:21)
[2020-04-18] MEDS: MIRTAZAPINE TAB 15 MG TAB PO SCH (20:21)
[2020-04-18 20:57] LABS: Hematocrit (blood only) 27.2 % (42-52); Hemoglobin 9.2 g/dL (14.0-18.0)
[2020-04-19] MEDS: PANTOprazole 40 MG in DEXTROSE 5% 100 ML IV SCH ×2 (01:31→06:58)
[2020-04-19] MEDS: SODIUM CHLOR 0.45% + 20MEQ KCL 20 MEQ/1,000 ML BAG IV SCH ×4 (04:54→22:10)
[2020-04-19] MEDS: PROCHLORPERAZINE MALEATE 5 MG TAB PO SCH ×3 (05:01→21:08)
[2020-04-19 06:32] LABS: Mean Corpuscular Hemoglobin 30.9 pg (25-34); Mean Corpuscular Hgb Conc 33.3 g/dL (32-36); Mean Corpuscular Volume 92.8 fL (80-100); RDW Coefficient of Variation 18.5 % (11.5-14.5); RDW Standard Deviation 59.6 fL (36.4-46.3); Red Blood Count 2.91 M/uL (4.7-6.1); White Blood Count 3.25 K/uL (4.8-10.8)
[2020-04-19 06:58] LABS: Mean Platelet Volume 9.5 fL (7.4-10.4); Platelet Count 86 K/uL (130-400)
[2020-04-19 06:59] LABS: BUN Creatinine Ratio 2.6 (10-20); Calcium 7.3 mg/dl (8.5-10.1); Creatinine Clr Calc Pharmacy 33.4 ml/min; Est GFR (African American) 30.7; Est GFR (Non-African American) 26.5; Potassium 3.3 mmol/L (3.5-5.1)
[2020-04-19 07:01] LABS: Eosinophils # (auto) 0.22 K/uL (0-0.5); Eosinophils % (auto) 6.8 %; Immature Granulocytes # (auto) 0.03 K/uL (0.00-0.02); Immature Granulocytes % (auto) 0.9 %; Lymphocytes # (auto) 1.02 K/uL (1.2-3.4); Lymphocytes % (auto) 31.4 %; Monocytes # (auto) 0.23 K/uL (0.11-0.59); Monocytes % (auto) 7.1 %; Neutrophils # (auto) 1.75 K/uL (1.4-6.5); Neutrophils % (auto) 53.8 %; Platelet Estimate Decreased (Normal)
--- NOTE | 2020-04-19 07:46 | Hospitalist Progress Note ---
Date of Service April 19, 2020 Assessment & Plan (1) Hypotension: Kirt Collins is a 70-year-old male with complex past medical history significant for multiple myeloma; who presents for nausea, vomiting, decreased oral intake, weakness over the last several weeks. Hospital stay significant for acute retroperitoneal hemorrhage causing hypotension. Nausea/vomiting: - new emesis this morning - prochlorperazine scheduled, added PRN zofrn 4 mg IV - likely aspect of gastric ulceration/gastritis/mucosal irritation causing nausea. Already on Pantoprazole 40 mg BID, added sucralfate QID for additional coverage. - will monitor into tomorrow and consider GI consult for scope if N/V not improving. Acute hypotension: resolved - s/p 2 u PRBC transfusion for hg 6.8 - CT A/P showing retroperitoneal hematoma similar to march - H/H stable, asymptomatic anemia with Hg/Hct 02/02 - consented for blood in situation of re-bleed Weakness: -Weakness was present prior to acute blood loss,improved at this time -Given patient's recent retroperitoneal bleed, likely secondary to anemia + dehydration Decreased oral intake: -patient with reduced appetite and decreased oral intake for several weeks -trial Remeron 15mg QHS for appetite stimulation DVT ppx: chemical contraindicated in setting of retroperitoneal bleed. SCDs FEN/GI: oral intake, PPI + sucralfate Code Status: FUll Code DIspo: bed hold at [facility] for return when medically stable (2) Nausea: (3) Weakness: (4) Acute dehydration: (5) Retroperitoneal bleed: Admission and Anticipated Discharge Date Admission Date: April 17, 2020 Supervising Physician Co-Signing Physician Notes I personally examined the patient and verified all [place] points of history and exam, discussed case, and agree with decision making with Dr Rhodes. some nausea/dry heaves this AM but better now. actually ate better today than overall. vitals noted nad heent nc at mmm breathing unlabored no accessory muscles good effort skin no rashes no pallor or icterus. ad soft nd nt intractable nausea/vomiting/dehydration and subsequent ARF - improving. continue ppi and antiemetics. add carafate. continues to be eating better, continue current meds otherwise, continue to encourage intake. goal appears to be calories about 2049 a day - outlined extensively. questionable pneumonia - no sx, no hypoxia, off abx and doing well hypernatremia and hypokalemia - fluids adjusted, f/u BMP in AM acute hypotension / acute blood loss anemia - suspect recurrent retroperitoneal bleed (appears c/w hemorrhagic shock but without overt GI bleeding or other site of bleeding) - CT fairly stable but given time frame in between ??was it smaller and then current CT shows being bigger again. follow closely but appears more stable now. needed 2 units PRBC, appearing stable now. if it is rebleed into same space would expect tamponade at a lower loss than before. FOBT negative, and no s/s of GI bleeding. follow CBC, since rebleed - probably repeat CT for stability over time, but appearing overall stable. otherwise as above, no pharmacologic dvt proph given retroperitoneal bleed. if Hgb stable, eating continues to improve, electrolytes improve - possibly back to SNF again tomorrow Subjective had an episode of emesis this mornign during breakfast. says these episodes don't happen often and don't have specific triggers. describes "episode" as having emesis and esophageal spasms afterward for 15 minutes. also says he takes a while to return to normal and feel okay after episode. generally feels improving in terms of strength and is okay with going back to [facility] for care after stable at the hospital. Review of Systems Constitutional: no weakness Respiratory: + cough; no dyspnea Gastrointestinal: + abdominal pain, + nausea and + vomiting; no hematemesis, no constipation and no diarrhea/loose stools Physical Exam Physical Exam: Constitutional: obese, in no apparent distress, sitting somewhat agitated in bed. Cardiac: RRR, no murmurs, gallops or rubs. Normal S1, S2 Pulm: CTA BL, no wheezes, rhonchi, crackles or rubs, moving air well throughout both lungs Back: no CVA tenderness, no bruising Results & Data Results & Data ([facility]) Vital Signs (Past 12 Hours) Vital Signs Temp Pulse Pulse Resp BP Pulse Ox 04/19/20 06:30 36.5 C 99 H 16 159/88 H 97 04/19/20 02:52 36.5 C 100 H 16 121/73 94 04/19/20 01:02 109 H 04/18/20 23:50 36.5 C 102 H 20 144/73 H 98 Laboratory Results WBC 3.25 K/uL (4.8-10.8) L 04/19/20 05:55 RBC 2.91 M/uL (4.7-6.1) L 04/19/20 05:55 Hgb 9.0 g/dL (14.0-18.0) L 04/19/20 05:55 Hct 27.0 % (42-52) L 04/19/20 05:55 MCV 92.8 fL (80-100) 04/19/20 05:55 MCH 30.9 pg (25-34) 04/19/20 05:55 MCHC 33.3 g/dL (32-36) 04/19/20 05:55 RDW Std Deviation 59.6 fL (36.4-46.3) H 04/19/20 05:55 RDW Coeff of Elvira 18.5 % (11.5-14.5) H 04/19/20 05:55 Plt Count 86 K/uL (130-400) L 04/19/20 05:55 MPV 9.5 fL (7.4-10.4) 04/19/20 05:55 Immature Gran % (Auto) 0.9 % 04/19/20 05:55 Neut % (Auto) 53.8 % 04/19/20 05:55 Lymph % (Auto) 31.4 % 04/19/20 05:55 Mora % (Auto) 7.1 % 04/19/20 05:55 Eos % (Auto) 6.8 % 04/19/20 05:55 Baso % (Auto) 0.0 % 04/19/20 05:55 Neut # (Auto) 1.75 K/uL (1.4-6.5) 04/19/20 05:55 Lymph # (Auto) 1.02 K/uL (1.2-3.4) L 04/19/20 05:55 Mora # (Auto) 0.23 K/uL (0.11-0.59) 04/19/20 05:55 Eos # (Auto) 0.22 K/uL (0-0.5) 04/19/20 05:55 Baso # (Auto) 0.00 K/uL (0-0.2) 04/19/20 05:55 Immature Gran # (Auto) 0.03 K/uL (0.00-0.02) H 04/19/20 05:55 Neutrophils % (Manual) 70.4 % 04/17/20 05:48 Lymphocytes % (Manual) 8.7 % 04/17/20 05:48 Monocytes % (Manual) 0.9 % 04/17/20 05:48 Eosinophils % (Manual) 1.7 % 04/17/20 05:48 Neutrophils # (Manual) 2.13 K/uL (1.4-6.5) 04/17/20 05:48 Total Absolute Neuts 2.13 K/uL (1.4-6.5) 04/17/20 05:48 Lymphocytes # (Manual) 0.26 K/uL (1.2-3.4) L 04/17/20 05:48 Total Abs Lymphocytes 0.82 K/uL (1.2-3.4) L 04/17/20 05:48 Monocytes # (Manual) 0.03 K/uL (0.11-0.59) L 04/17/20 05:48 Eosinophils # (Manual) 0.05 K/uL (0-0.5) 04/17/20 05:48 Large Granular Lymphs 18.3 % 04/17/20 05:48 # Lrg Granular Lymphs 0.55 K/uL 04/17/20 05:48 Platelet Estimate Decreased (Normal) L 04/19/20 05:55 Giant Platelets 1+ 04/17/20 05:48 RBC Morphology Unremarkable 04/16/20 23:45 PT 13.6 Seconds (9.0-12.0) H 04/16/20 12:04 INR 1.3 (0.9-1.1) H 04/16/20 12:04 APTT 28.9 Seconds (21.0-31.0) 04/16/20 12:04 PTT Ratio 1.0 04/16/20 12:04 Sodium 147 mmol/L (136-145) H 04/19/20 05:55 Potassium 3.3 mmol/L (3.5-5.1) L 04/19/20 05:55 Chloride 123 mmol/L (98-107) H 04/19/20 05:55 Carbon Dioxide 20 mmol/L (21-32) L 04/19/20 05:55 Anion Gap 4.0 (3-11) 04/19/20 05:55 BUN 7 mg/dl (7-18) 04/19/20 05:55 Creatinine 2.50 mg/dl (0.6-1.4) H 04/19/20 05:55 Est Cr Clr Drug Dosing 33.4 ml/min 04/19/20 05:55 Est GFR ( Amer) 30.7 04/19/20 05:55 Est GFR (Non-Af Amer) 26.5 04/19/20 05:55 BUN/Creatinine Ratio 2.6 (10-20) L 04/19/20 05:55 Glucose 92 mg/dl (70-99) 04/19/20 05:55 POC Glucose 171 mg/dl (70-99) H 04/19/20 11:59 Lactate 1.2 mmol/L (0.4-2.0) 04/16/20 23:45 Calcium 7.3 mg/dl (8.5-10.1) L 04/19/20 05:55 Magnesium 2.0 mg/dl (1.8-2.4) 04/16/20 12:04 Iron 54 mcg/dl (35-175) 04/17/20 05:48 TIBC 154 mcg/dl (250-450) L 04/17/20 05:48 Total Bilirubin 0.5 mg/dl (0.2-1) 04/16/20 23:45 Ferritin 1277.9 ng/ml (8-388) H 04/17/20 05:48 AST 31 U/L (15-37) 04/16/20 23:45 ALT 17 U/L (12-78) 04/16/20 23:45 Alkaline Phosphatase 150 U/L (45-117) H 04/16/20 23:45 Troponin I < 0.015 ng/ml (0-0.045) 04/16/20 12:04 Total Protein 6.0 gm/dl (6.4-8.2) L D 04/16/20 23:45 Albumin 1.8 gm/dl (3.4-5.0) L 04/16/20 23:45 Globulin 4.2 gm/dl (2.5-4.0) H 04/16/20 23:45 Albumin/Globulin Ratio 0.4 (0.9-2) L 04/16/20 23:45 Vitamin B12 612 pg/ml (193-986) 04/18/20 06:52 Folate 10.00 ng/ml (>5.38) 04/18/20 06:52 Procalcitonin 0.30 ng/ml (0-0.5) 04/17/20 05:48 Random Cortisol 16.68 mcg/dl 04/16/20 12:04 Urine Color Yellow 04/16/20 15:57 Urine Appearance Clear (Clear) 04/16/20 15:57 Urine pH 6.0 (4.5-7.5) 04/16/20 15:57 Ur Specific [place] 1.011 (1.000-1.030) 04/16/20 15:57 Urine Protein 1+ (Negative) H 04/16/20 15:57 Urine Glucose (UA) Negative (Negative) 04/16/20 15:57 Urine Ketones Negative (Negative) 04/16/20 15:57 Urine Blood Negative (Negative) 04/16/20 15:57 Urine Nitrite Negative (Negative) 04/16/20 15:57 Urine Bilirubin Negative (Negative) 04/16/20 15:57 Urine Urobilinogen Negative (Negative) 04/16/20 15:57 Ur Leukocyte Esterase Trace (Negative) H 04/16/20 15:57 Urine WBC (Auto) 1-5 /hpf (0-5) 04/16/20 15:57 Urine RBC (Auto) 0-4 /hpf (0-4) 04/16/20 15:57 U Hyaline Cast (Auto) 5-10 /lpf (0-5) H 04/16/20 15:57 U Epithel Cells (Auto) >30 /lpf (0-5) H 04/16/20 15:57 Urine Bacteria (Auto) Negative (Negative) 04/16/20 15:57 Nasal Screen MRSA (PCR) Negative (Negative) 04/16/20 13:42 Stool Occult Bld Scrn Negative (Negative) 04/18/20 Unknown COVID-19 Eval Order Covid19 IDNow [facility] 04/16/20 12:04 SARS-CoV-2, RNA, NAAT NEGATIVE (NEGATIVE) 04/16/20 12:04 Blood Type O Positive 04/17/20 07:30 Antibody Screen NEGATIVE 04/17/20 07:30 Crossmatch See Detail 04/17/20 07:30 Resident Activity Tracking Resident Involvement: Resident Care Provided Care Provided: Adult Hospital Medicine
[2020-04-19] MEDS: AMIODARONE 200 MG TAB PO SCH (08:14)
[2020-04-19] MEDS: CYANOCOBALAMIN 500 MCG TABLET (VITAMIN B-12) PO SCH (08:14)
[2020-04-19] MEDS: MULTIVITAMIN TAB PO SCH (08:14)
[2020-04-19] MEDS: CALCIUM 600MG + VIT D 400 IU TAB PO SCH (08:15)
[2020-04-19] MEDS: ACYCLOVIR 400 MG TAB PO SCH ×2 (08:15→21:09)
[2020-04-19] MEDS: FLUTICASONE PROPIONATE NA SPR 16 GM BTL NAE SCH (08:15)
[2020-04-19] MEDS: ASCORBIC ACID 500 MG TAB PO SCH (08:15)
[2020-04-19] MEDS: POTASSIUM CHLORIDE CRTAB 20 MEQ TABCR PO SCH (08:15)
[2020-04-19] MEDS: GABAPENTIN 100 MG CAP PO SCH ×3 (08:16→21:09)
[2020-04-19] MEDS: LIDOCAINE 5% 1 PATCH TD SCH (08:16)
[2020-04-19] MEDS: MICONAZOLE NITRATE 2% CR 30 GM TUBE EXT SCH ×2 (08:17→22:14)
[2020-04-19] MEDS ORDERED: ONDANSETRON INJ 2 MG/ML 2 ML VIAL IV PRN (08:56)
[2020-04-19] MEDS: PANTOprazole 40 MG TAB PO SCH ×2 (09:47→21:10)
--- NOTE | 2020-04-19 16:47 | Billing Data ---
Date of Service April 19, 2020 Coding Level of Care Code 71733 Subseq Hosp Care Lvl 3
[2020-04-19] MEDS: SUCRALFATE 1 GM/10 ML UDC PO SCH ×2 (17:05→21:08)
[2020-04-19] MEDS: METOPROLOL TARTRATE 50 MG TAB PO SCH (21:08)
[2020-04-19] MEDS: DOXEPIN HCL 50 MG CAPSULE PO SCH (21:09)
[2020-04-19] MEDS: MIRTAZAPINE TAB 15 MG TAB PO SCH (21:10)
[2020-04-20] MEDS: SODIUM CHLOR 0.45% + 20MEQ KCL 20 MEQ/1,000 ML BAG IV SCH ×3 (05:08→13:31)
[2020-04-20] MEDS: PROCHLORPERAZINE MALEATE 5 MG TAB PO SCH ×2 (06:11→13:27)
[2020-04-20 06:26] LABS: Hemoglobin 9.1 g/dL (14.0-18.0); Mean Corpuscular Hemoglobin 31.1 pg (25-34); Mean Corpuscular Hgb Conc 33.7 g/dL (32-36); Mean Corpuscular Volume 92.2 fL (80-100); RDW Standard Deviation 56.6 fL (36.4-46.3); Red Blood Count 2.93 M/uL (4.7-6.1); White Blood Count 3.09 K/uL (4.8-10.8)
[2020-04-20 06:31] LABS: Mean Platelet Volume 8.8 fL (7.4-10.4); Platelet Count 73 K/uL (130-400)
[2020-04-20 06:52] LABS: Eosinophils # (auto) 0.15 K/uL (0-0.5); Eosinophils % (auto) 4.9 %; Immature Granulocytes # (auto) 0.02 K/uL (0.00-0.02); Immature Granulocytes % (auto) 0.6 %; Lymphocytes # (auto) 1.11 K/uL (1.2-3.4); Lymphocytes % (auto) 35.9 %; Monocytes # (auto) 0.21 K/uL (0.11-0.59); Monocytes % (auto) 6.8 %; Neutrophils % (auto) 51.8 %
[2020-04-20 07:01] LABS: BUN Creatinine Ratio 1.7 (10-20); Calcium 7.5 mg/dl (8.5-10.1); Creatinine Clr Calc Pharmacy 36.2 ml/min; Est GFR (African American) 33.8; Est GFR (Non-African American) 29.2; Potassium 3.6 mmol/L (3.5-5.1)
[2020-04-20] MEDS: POTASSIUM CHLORIDE CRTAB 20 MEQ TABCR PO SCH (07:58)
[2020-04-20] MEDS: METOPROLOL TARTRATE 50 MG TAB PO SCH ×2 (07:58→13:27)
[2020-04-20] MEDS: CYANOCOBALAMIN 500 MCG TABLET (VITAMIN B-12) PO SCH (07:59)
[2020-04-20] MEDS: GABAPENTIN 100 MG CAP PO SCH ×2 (07:59→13:28)
[2020-04-20] MEDS: MULTIVITAMIN TAB PO SCH (07:59)
[2020-04-20] MEDS: AMIODARONE 200 MG TAB PO SCH (08:00)
[2020-04-20] MEDS: ASCORBIC ACID 500 MG TAB PO SCH (08:00)
[2020-04-20] MEDS: PANTOprazole 40 MG TAB PO SCH (08:00)
[2020-04-20] MEDS: CALCIUM 600MG + VIT D 400 IU TAB PO SCH (08:00)
[2020-04-20] MEDS: ACYCLOVIR 400 MG TAB PO SCH (08:00)
[2020-04-20] MEDS: FLUTICASONE PROPIONATE NA SPR 16 GM BTL NAE SCH (08:01)
[2020-04-20] MEDS: LIDOCAINE 5% 1 PATCH TD SCH (08:01)
[2020-04-20] MEDS: SUCRALFATE 1 GM/10 ML UDC PO SCH ×2 (08:01→13:29)
[2020-04-20] MEDS: MICONAZOLE NITRATE 2% CR 30 GM TUBE EXT SCH (08:01)
--- NOTE | 2020-04-20 09:19 | XRay Report ---
XR chest 1V portable HISTORY: Aspiration pneumonia. Follow-up. COMPARISON: Chest 04/16/2020. FINDINGS: No pneumothorax. The heart is stable in size. The left lung consistent essentially clear. S mall right pleural effusion and hazy right basilar densities persist. Bilateral anterior rib fracture s are better appreciated on the recent chest CT. A few lytic lesions are noted consistent with the pa tient's history of multiple myeloma. IMPRESSION: 1. No change in the small right pleural effusion and hazy right basilar densities. This may represent atelectasis. 2. A few lytic lesions consistent with patient's history of multiple myeloma. 3. Bilateral anterior rib fractures are better appreciated on the recent chest CT. No pneumothorax. ACT 112: Negative or not required by law. Electronically signed by: Keyshawn Gtz M.D. 04/20/2020 9:17 AM
--- NOTE | 2020-04-20 10:15 | Hospitalist Progress Note ---
Date of Service April 20, 2020 Assessment & Plan (1) Hypotension: Kirt Collins is a 70-year-old male with complex past medical history significant for multiple myeloma; who presents for nausea, vomiting, decreased oral intake, weakness over the last several weeks. Hospital stay significant for acute retroperitoneal hemorrhage causing hypotension. Nausea/vomiting: - new emesis this morning - prochlorperazine scheduled, added PRN zofrn 4 mg IV - likely aspect of gastric ulceration/gastritis/mucosal irritation causing nausea. Already on Pantoprazole 40 mg BID, added sucralfate QID for additional coverage. - will monitor into tomorrow and consider GI consult for scope if N/V not improving. Acute hypotension: resolved - s/p 2 u PRBC transfusion for hg 6.8 - CT A/P showing retroperitoneal hematoma similar to march - H/H stable, asymptomatic anemia with Hg/Hct 02/02 - consented for blood in situation of re-bleed Weakness: -Weakness was present prior to acute blood loss,improved at this time -Given patient's recent retroperitoneal bleed, likely secondary to anemia + dehydration Decreased oral intake: -patient with reduced appetite and decreased oral intake for several weeks -trial Remeron 15mg QHS for appetite stimulation DVT ppx: chemical contraindicated in setting of retroperitoneal bleed. SCDs FEN/GI: oral intake, PPI + sucralfate Code Status: FUll Code DIspo: bed hold at [facility] for return when medically stable (2) Nausea: (3) Weakness: (4) Acute dehydration: (5) Retroperitoneal bleed: Admission and Anticipated Discharge Date Admission Date: April 17, 2020 Results & Data Results & Data ([facility]) Vital Signs (Past 12 Hours) Vital Signs Temp Pulse Pulse Resp BP Pulse Ox 04/20/20 07:37 87 04/20/20 07:18 37.2 C 88 18 156/82 H 98 04/20/20 05:22 36.4 C L 87 20 150/81 H 98 04/20/20 01:47 86 04/19/20 22:22 38.1 C H 83 16 133/78 96
--- NOTE | 2020-04-20 18:18 | Discharge Summary ---
Date of Service April 20, 2020 Admission HPI Per Admitting Provider Mr. Collins presents today for weakness and nausea/vomiting which he says has been ongoing since his discharge from [facility] a month and a half ago. He had occasional lightheadedness, no chest pain or palpitations. One loose stool per day, no blood in his stool, no abdominal pain. He is chilled but no aches or fevers. No dysuria or hesitancy. He has healing left arm wounds but otherwise no skin issues. He has no cough but does feel somewhat short of breath. Mr. Collins was discharged from [facility] on 03/22 after being transferred from [facility]. He had been admitted to [facility] after being found down for about a day by a neighbor. He was septic with a very high fever and found to have Legionella pna and coag neg staph in his blood thought to be from an infected port. He was improving but then had a cardiac arrest with PEA and was found to have a large retroperitoneal bleed. This subsequently lead to his transfer to [facility]. From there he went to [facility] and then [facility] and continues to be a resident there. Pmhx: multiple myeloma s/p autologous stem cell transplantation x 2 , cardiac arrest, atrial fibrillation, peripheral neuropathy secondary to chemotherapy, hypertension, allergic rhinitis, Social: from [facility], on disability due to cancer, never smoker, rare alcohol Family: sister with DM, mother of complications from an MVA, father had prediabetes Admission Exam Per Admitting Provider General: no distress Eyes: normal inspection, PERLL Respiratory: chest non tender, clear to auscultation, normal breath sounds, no respiratory distress, no accessory muscle use Cardiac: regular rate and rhythm, no rub or gallop, no murmur, no edema, no jvd GI/: active bowel sounds, no abd pain or tenderness, soft, non distended Extremities: normal range of motion, normal strength, non tender Neuro: CN II - XII intact, alert Psych:Oriented x 3, normal mood and affect Skin: normal color, dry Principal Diagnosis Nausea, Retroperitoneal Bleed Discharge Exam Constitutional: obese, in no apparent distress,laying comfortably in bed. Eyes: EOMI, pupils equal and reactive bilaterally, no scleral icterus Cardiac: RRR, no murmurs, gallops or rubs. Normal S1, S2 Pulm: CTA BL, no wheezes, rhonchi, crackles or rubs, moving air well. somewhat diminished air movement in right lower lung. Abd: soft, mild epigastric tenderness, nondistended, normal bowel sounds, no rebound or guarding Extremities: 2+ peripheral pulses, no edema Neuro: no focal deficits, moving all 4 limbs, A&Ox3 Discharge Data Allergies Allergy/AdvReac Type Severity Reaction Status Date / Time epinephrine Allergy Intermediate STATES Verified 04/16/20 13:32 GETS A "WARNER" levofloxacin Allergy Intermediate RASH Verified 04/16/20 13:32 Sulfa (Sulfonamide Allergy Intermediate Rash Verified 04/16/20 13:32 Antibiotics) house dust Allergy Unknown Itchy Verified 04/16/20 13:32 Eye(s) Consultations 04/16/20 13:29 ED Decision to Admit Stat 04/16/20 19:14 Consult Case Management - Discharge Planning Routine Ordered Studies 04/17/20 00:25 CT abd pelvis wo con Urgent Hospital Course (1) Hypotension: Kirt Collins is a 70-year-old male with complex past medical history significant for multiple myeloma in remission, retroperitoneal bleed, CKD, PAF; who was admitted for nausea, vomiting, decreased oral intake, weakness over the last several weeks. Hospital stay significant for acute retroperitoneal hemorrhage causing hypotension. Nausea/vomiting: - Mostly controlled with scheduled Compazine 5 mg Q8 scheduled. Some breakthrough nausea and emesis in the AM without specific trigger. Discussed adding Phenergan 12.5 mg QHS to decrease AM nausea. - History of torsades de pointes after multiple QT prolonging agents, therefore avoiding and limiting use of such medications. - Pantoprazole 40 mg BID and Sucralfate QID for improvement of any gastric irritation. - Can consider outpatient EGD if nausea does not improve. - Remeron 15 mg QHS initiated to increase appetite Retroperitoneal Bleed - History of bleed in March 2020 - Acutely decompensated overnight requiring 2 units [address]BC transfusion with CT scan showing retroperitoneal bleed near same size as previously. Most likely improved in the interim and then acutely bled again. - Hemoglobin stable at 9.1 at discharge. - Consider follow up CBC in 1 week to monitor Hg levels. CHLOÉ on CKD due to dehydration - Gabapentin dose decreased from 300 to 200 mg TID - responded well to fluid resuscitation - discharge creatinine 2.5 - Consider repeat BMP in 1 week to monitor creatinine. Patient discharged back to [facility] for previously established need for acute rehab. (2) Nausea: (3) Weakness: (4) Acute dehydration: (5) Retroperitoneal bleed: Total Time Total Time Spent Total Time Spent (In Minutes): see attending attestation Discharge Plan Discharge Items Patient Disposition: Transfer Half-Way Fac Reason For Visit: PNEUMONIA Discharge Diagnosis: Retroperitoneal Hemorrhage, Nausea Activity: Resume your previous activity Non-emergency contact: Primary Care Provider Call non-emergency contact if: you have any medication questions and your symptoms worsen Follow-up/Referrals: Cleveland Kennedy, [Primary Care Provider] - Diet: Regular and Other - See Diet Comment Diet Comment: Goal of 2050 calories per day, however you get there! Addtl Attending Provider Instructions: (1) Hypotension: Kirt Collins is a 70-year-old male with complex past medical history significant for multiple myeloma in remission and retroperitoneal hemorrhage; who presents for nausea, vomiting, decreased oral intake, weakness over the last several weeks. Hospital stay significant for acute retroperitoneal hemorrhage causing hypotension. Nausea/vomiting: - continuing emesis this morning - prochlorperazine scheduled, PRN zofran helped. WIll d/c on Phenergan 12.5 mg at bedtime to avoid repeat episode of torsades with QT prolongation. - likely aspect of gastric ulceration/gastritis/mucosal irritation causing nausea. Already on Pantoprazole 40 mg BID, added sucralfate QID for additional coverage. - may need outpatient GI evaluation for Acute hypotension: resolved - s/p 2 u PRBC transfusion for hg 6.8 - CT A/P showing retroperitoneal hematoma similar to march - H/H stable, asymptomatic anemia with Hg/Hct 9/27 - consented for blood in situation of re-bleed Weakness: -Weakness was present prior to acute blood loss,improved at this time -Given patient's recent retroperitoneal bleed, likely secondary to anemia + dehydration Decreased oral intake: -patient with reduced appetite and decreased oral intake for several weeks -trial Remeron 15mg QHS for appetite stimulation DVT ppx: chemical contraindicated in setting of retroperitoneal bleed. SCDs FEN/GI: oral intake, PPI + sucralfate Code Status: FUll Code DIspo: return to [facility] (2) Nausea: (3) Weakness: (4) Acute dehydration: (5) Retroperitoneal bleed: Pending Studies at Discharge: No Stand-Alone Forms: My [facility] Skilled Items Patient informed of condition?: Yes DNR: No Discharge Level of Care: Acute rehab Communicable Disease: No Discharge Prognosis: Stable Lines: None Urinary Catheter: No Medications and DC Order Prescriptions: New promethazine 6.25 mg/5 mL Syrup 12.5 mg PO HS Qty: 473 RF: 0 mirtazapine 15 mg Tablet 15 mg PO HS Qty: 30 RF: 0 prochlorperazine maleate 5 mg Tablet 5 mg PO Q8 Qty: 30 RF: 0 pantoprazole 40 mg Tablet,Delayed Release (Dr/Ec) 40 mg PO BID 30 Days Qty: 60 RF: 0 sucralfate 100 mg/mL suspension 1 g PO QID 30 Days Qty: 1200 RF: 0 Continued doxepin 100 mg capsule 100 mg PO HS Qty: 90 RF: 1 ascorbic acid (vitamin C) 500 mg capsule 500 mg PO QAM RF: 0 cyanocobalamin (vitamin B-12) [Vitamin B-12] 1,000 mcg Tablet 1,000 mcg PO QAM RF: 0 acyclovir 400 mg Tablet 400 mg PO BID RF: 0 metoprolol tartrate 50 mg Tablet 50 mg PO TID RF: 0 gabapentin 300 mg Capsule 300 mg PO TID RF: 0 Calcium 600 + D(3) 600 mg calcium- 200 unit Capsule 1 cap PO QAM RF: 0 omega 3-cqz-[id number]-fish oil [Fish Oil] 1,000 mg (120 mg-180 mg) Capsule 2 cap PO QAM RF: 0 guaifenesin [Mucinex] 600 mg Tablet Extended Release 12hr 600 mg PO Q12H PRN (Reason: Congestion) RF: 0 aspirin 81 mg Tablet,Delayed Release (Dr/Ec) 81 mg PO QAM RF: 0 potassium chloride 20 mEq Tablet Extended Release 20 meq PO QAM RF: 0 fluticasone propionate 50 mcg/actuation [place],Suspension 2 spray INTRANASAL DAILY RF: 0 acetaminophen [Tylenol Extra Strength] 500 mg Tablet 500 mg PO Q6H PRN (Reason: Headache) RF: 0 docusate sodium [Colace] 100 mg Capsule 100 mg PO DAILY PRN (Reason: Constipation) RF: 0 cetirizine 10 mg Tablet 10 mg PO BID PRN (Reason: Allergy Symptoms) RF: 0 multivitamin Tablet 1 tab PO QAM RF: 0 amiodarone 200 mg Tablet 200 mg PO DAILY RF: 0 pantoprazole 20 mg tablet,delayed release (DR/EC) 20 mg PO BID RF: 0 doxycycline hyclate 100 mg Recon Soln 100 mg IV Q12H RF: 0 miconazole nitrate 2 % Ointment 1 applic TOPICAL BID RF: 0 lisinopril 5 mg Tablet 5 mg PO DAILY RF: 0 loteprednol etabonate [Lotemax] 0.5 % Drops,Suspension 1 drp OPB DAILY RF: 0 polyethylene glycol 3350 [Miralax] 17 gram/dose Powder 17 g PO DAILY PRN (Reason: Constipation) RF: 0 simethicone 80 mg Tablet,Chewable 80 mg PO QID PRN (Reason: abdominal bloating/ gas pain) RF: 0 oxycodone 5 mg Tablet 2.5 mg PO Q4H PRN (Reason: Moderate Pain (Scale Score 5-6)) RF: 0 albuterol sulfate 2.5 mg/0.5 mL Solution For Nebulization 2.5 mg INHALATION Q4H PRN (Reason: Wheezing) RF: 0 Artificial Tears (cmc) 1 % Drops 1 drp OPB BID RF: 0 Discontinued lidocaine 5 % Adhesive Patch,Medicated 1 patch TOPICAL DAILY RF: 0 heparin (porcine) 5,000 unit/mL Solution 5,000 unit SUBCUT Q8H RF: 0 Discharge Orders: Discharge Order (Routine); Ordered 04/20/20 Ordered By: Ginny Rhodes Admission Data Admit Date/Time: 04/17/20 18:45 Attending Provider: Trav Marroquin Admit Provider: Trav Marroquin Primary Care Provider: Cleveland Kennedy Other Providers: Alfonso Burk ; Ginny Rhodes ; Jeanne Ellis [facility] Other Interventions: Discharge Summary Assessment (RN) Last Done: 04/20/20 14:53 Supervising Physician Co-Signing Physician Notes I personally examined the patient and verified all [place] points of history and exam, discussed case, and agree with decision making with Dr Rhodes. nausea again this AM but otherwise feeling better/eating more than he has in quite a while. vitals noted nad heent nc at mmm breathing unlabored no accessory muscles good effort skin no rashes no pallor or icterus. cn 2-12 grossly intact and shows no focal neuro deficits. intractable nausea/vomiting/dehydration and subsequent ARF - improving. ongoing med management - if fails to show ongoing improvement then can consider GI for EGD - but has shown good progress w aggressive med management. goal appears to be calories about 2049 a day - outlined extensively, and pt expresses good understanding. BMP approx biweekly for now tempx1 - no other s/s infection. stable for return to snf so that he can hopefully have ongoing rehab type care. likely inflammatory changes from resolving retroperitoneal bleed questionable pneumonia - no sx, no hypoxia, off abx and doing well (see above) hypernatremia and hypokalemia - appears mostly to have been related to initial IV fluids being NSS -- that, plus his acute frailty, seems to have led to him "equilibrating to IV fluids" to a degree --> this has been changed and i suspect that now that his PO intake is better, his electrolytes will improve. again as above - approx biweekly BMP at would be appropriate acute hypotension / acute blood loss anemia - suspect recurrent retroperitoneal bleed (appears c/w hemorrhagic shock but without overt GI bleeding or other site of bleeding) - CT fairly stable but given time frame in between ??was it smaller and then current CT shows being bigger again. follow closely but appears more stable now. needed 2 units PRBC, appearing stable now. if it is rebleed into same space would expect tamponade at a lower loss than before. FOBT negative, and no s/s of GI bleeding. follow CBC, since rebleed - probably repeat CT for stability over time, but appearing overall stable. see above otherwise otherwise as above, no pharmacologic dvt proph given retroperitoneal bleed. stable for return to snf Resident Activity Tracking Resident Involvement: Resident Care Provided Care Provided: Adult Hospital Medicine
--- NOTE | 2020-04-20 18:42 | Billing Data ---
Date of Service April 20, 2020 Coding Level of Care Code D/C Day Management <30 mins
[2020-04-20] MEDS ORDERED: PROMETHAZINE HCL 12.5 MG/10 ML UDP PO SCH (21:00)
--- NOTE | 2020-04-23 11:30 | Coding Letter ---
To promote full compliance with coding requirements relating to patient care, provider participation is requested in all cases of senior c developer uncertainty. Please assist us with the question(s) below: Coding Question(s): The diagnosis below was documented in the 04/18/[address] Napier/Dr. Marroquin then subsequently fell off all further documentation. Please indicate if it is still a possible diagnosis or ruled out. Physician's Response(s): METABOLIC ENCEPHALOPATHY ( ) Diagnosed and POA ( ) Diagnosed and not POA ( ) Ruled out ( ) Other (please specify) MTDD
--- NOTE | 2020-04-24 06:22 | Coding Query ---
To promote full compliance with coding requirements relating to patient care, provider participation is requested in all cases of legal document specialist uncertainty. Please assist us with the question(s) below: Coding Question(s): The diagnosis below was documented in the 04/18/[address] Napier/Dr. Marroquin then subsequently fell off all further documentation. Please indicate if it is still a possible diagnosis or ruled out. Physician's Response(s): METABOLIC ENCEPHALOPATHY ( x ) Diagnosed and POA (and resolved as hospital stay progressed) ( ) Diagnosed and not POA ( ) Ruled out ( ) Other (please specify) MTDD
== END 2020-04-20 15:39 ==
LOC: ED 11:06 → 2N 11:06

== ENCOUNTER 2020-05-15 18:30 | Inpatient (IN) ==
[2020-05-15] MEDS ORDERED: CALCIUM GLUCONATE 10% 1,000 MG in SODIUM CHLORIDE 0.9% 50 ML IV ONE (18:42)
[2020-05-15] MEDS ORDERED: SODIUM CHLORIDE 0.9% 1000ML 1,000 ML IV ONE (18:46)
[2020-05-15] MEDS ORDERED: SODIUM BICARB 8.4% INJ 50 MEQ/50 ML SYR IV STA (18:46)
[2020-05-15] MEDS ORDERED: ONDANSETRON INJ 2 MG/ML 2 ML VIAL IV STA (18:56)
--- NOTE | 2020-05-15 18:56 | Emergency Department Note ---
Impression & Plan CHLOÉ (acute kidney injury) ED Provider Note Provider: Dylan Hicks MD DATE OF SERVICE:05/15/2020 CHIEF COMPLAINT: Lab abnormality, decreased intake, nausea HISTORY OF PRESENT ILLNESS: Patient is a 65-year-old gentleman with a complex medical history and last several months evidently had a Legionella pneumonia and sepsis with multiple myeloma history then suffered a cardiac arrest and a large retroperitoneal bleed treated initially at [facility]. Has had stem cell transplant twice in the past as well as atrial fibrillation maintained on amiodarone but no anticoagulation currently. Patient states over the last several days has been feeling a bit more weak and having more nausea and some upper abdominal discomfort. States he has been eating or drinking a bit less. Blood work from [facility] where he is currently residing indicate that the patient's renal function around noon on May showed a creatinine of 5 and a potassium of 5.5. This worsened today and he was referred here due to repeat laboratory testing today with collection at 6 AM this morning showed creatinine worsening of 5.5 and a potassium of 6.7 was sent here for further evaluation. Patient's AST and ALT were unremarkable but alkaline phosphatase was 205. This was stable compared to alkaline phosphatase of 209 yesterday. BUN yesterday was 25 and today is 29. Patient denies fevers. Patient states he did recover from Covid that he had at the beginning of April. Denies significant chest pain or respiratory symptoms. Patient does note generalized weakness. REVIEW OF SYSTEMS: A total of 10 review of systems was obtained and negative except as stated above in the HPI. PAST MEDICAL HISTORY: As noted above MEDICATIONS: Reviewed medications with the facility SOCIAL HISTORY: Currently resides at [facility], non-smoker PHYSICAL EXAM: GENERAL: alert and oriented in no acute distress on stretcher Head: normocephalic and atraumatic EYES: No injection, discharge or icterus. NECK: Trachea midline. LUNGS: Airway patent. No retractions. Breath sounds clear HEART: Regular rate and rhythm. No chest wall tenderness ABDOMEN: Soft with some slight upper abdominal tenderness. Not peritoneal. No guarding. SKIN: Acyanotic, warm, dry, without rashes EXTREMITIES: Without swelling, tenderness or deformity NEUROLOGICAL: No focal deficits. No aphasia. No facial droop or slurred speech. Patient does have some slight fogginess of recent events. EK bpm normal sinus rhythm without PVC or PAC. Low voltage and some baseline artifact is present. No clear ST segment elevation. Normal QRS duration. Normal QTC noted.Compared to April 172019, QTC has shortened more and less T wave inversions laterally. CONTINUOUS CARDIAC MONITORING: was ordered and showed a heart rate of 91 bpm in normal sinus rhythm Patient's laboratory studies and imaging reviewed. Differential includes Infection, dehydration, metabolic abnormality, gastrointestinal, hypo/hyperglycemia, electrolyte disturbance, anemia, hypoxia, cardiac sources, intracerebral event, toxicologic, neurologic, as well as other pathologies. IMPRESSION/MEDICAL DECISION MAKING: Patient has had a complex past several months related to multiple medical conditions including sepsis, cardiac arrest, retroperitoneal bleed, Covid pneumonia presenting referred from facility due to worsening renal function and electrolytes on laboratory studies. Patient has some upper abdominal discomfort and nausea appears from records he has had some nausea for some time. Now with decreased intake although BUNs not secondly elevated on the presenting labs. Repeats were sent here. Given some bicarb and calcium initially but likely the initial EKG does not show significant QRS widening or peaked T waves. Given some IV fluid hydration here. CT scan the abdomen pelvis without contrast was completed given his abdominal pain and evaluate for possible obstructive pathology entering his renal function. Patient denies recent infectious symptoms otherwise and lower suspicion at this point for sepsis. IV team had to establish IV access was some difficulty and delay in obtaining this some blood. Laboratory studies show mild hyperkalemia 5.7 with a creatinine here 5.2 and a BUN of 30. Again the patient has already received some calcium and bicarb here. Do not feel he needs other aggressive hyperkalemic treatment at this time and do not see an emergent need for dialysis tonight. Patient will need further optimization of his renal status and nephrology consultation going forward. No troponin elevation or transaminitis. CT scan of the abdomen pelvis as below without significant findings. Hospitalist was alerted. Patient was agreeable for Friedman for bladder decompression if there is a postobstructive component to his renal dysfunction. Not having significant respiratory dysfunction and will defer any antibiotics questioning the pneumonia finding on the CT to the inpatient team. DIAGNOSIS: Acute kidney injury DISPOSITION: Hospitalist will evaluate Patient was agreeable with this plan. Preliminary Findings Only See Final Report For Complete Findings CT ABDOMEN & PELVIS Without Contrast: Subtle reticular nodular opacity in the posterior left lower lobe could represent pneumonia. Recommend clinical correlation. Previously seen hematoma in the right upper abdomen adjacent to the ascending colon and right pararenal fascia has decreased in size with a small residual amount remaining measuring approximately 10 mm. Cholelithiasis without cholecystitis. No biliary dilatation. Numerous lytic lesions throughout the visualized bones compatible with history of multiple myeloma. Old compression deformity at T11. Normal appendix. No bowel wall thickening or obstruction. Hepatic steatosis. Radiologist: Francy Farooq MD Study ready at 22:43 and initial results transmitted at 22:56 Past Med/Surg History Medical History Acute confusion Acute dehydration Acute kidney injury CKD (chronic kidney disease) Constipation Fever HTN (hypertension) Hypomagnesemia Multiple myeloma Multiple myeloma Neuropathy BL FOOT; 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 CANCER TREATMENT Pancytopenia Paroxysmal atrial fibrillation Retroperitoneal bleed Rhabdomyolysis Seasonal allergies Severe sepsis Surgical History History of bone marrow biopsy History of cataract surgery BL History of colonoscopy History of incision and drainage CYST - RT GROIN History of stem cell transplant History of surgery CYST REMOVED FROM COCCYX 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; 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 Family History Family/Other Family history of diabetes mellitus Social History Smoking Status: Never smoker Second Hand Exposure: No; Hx Alcohol Use: Yes Alcohol type: wine and hard liquor Hx Substance Use: No Preferred Language: Maltese Communication Ability: Effective Stereo Compiler Required: No Beliefs That Will Affect Care: None marital status: Single Current Living Situation: Alone and Rehab Current Living Situation Comment: [facility] Other Information That Helps Us Care for You: No Feels Safe at Home: Yes Safety Concerns: Feels Safe At This Time Assistive Devices: None Allergies Allergies Allergy/AdvReac Type Severity Reaction Status Date / Time epinephrine Allergy Intermediate STATES Verified 05/15/20 20:40 GETS A "WARNER" levofloxacin Allergy Intermediate RASH Verified 05/15/20 20:40 Sulfa (Sulfonamide Allergy Intermediate Rash Verified 05/15/20 20:40 Antibiotics) house dust Allergy Unknown Itchy Verified 05/15/20 20:40 Eye(s) Home Meds Home Medications Medication Instructions Recorded Confirmed Cetrizine 10 mg PO DAILY PRN 05/15/20 05/15/20 Tylenol Supp 650 mg SC Q6 PRN 05/15/20 05/15/20 acetaminophen [Tylenol] 650 mg PO Q4 PRN 05/15/20 05/15/20 acyclovir 400 mg PO BID 05/15/20 05/15/20 albuterol sulfate [Proventil HFA] 2 puff INHALATION Q6H PRN 05/15/20 05/15/20 amiodarone 200 mg PO DAILY 05/15/20 05/15/20 artifi.tears(hypromellose)(PF) 1 drp OPHTHALMIC (EYE) BID 05/15/20 05/15/20 [GenTeal (PF)] ascorbic acid (vitamin C) [Vitamin 500 mg PO DAILY 05/15/20 05/15/20 C] aspirin [Aspir-Low] 81 mg PO DAILY 05/15/20 05/15/20 calcium carbonate-vitamin D3 1 tab PO DAILY 05/15/20 05/15/20 [Calcium 600 + D(3)] cefuroxime axetil 250 mg PO BID 05/15/20 05/15/20 cyanocobalamin (vitamin B-12) 1,000 mcg PO DAILY 05/15/20 05/15/20 [Vitamin B-12] docusate sodium 100 mg PO DAILY PRN 05/15/20 05/15/20 doxepin 100 mg PO HS 05/15/20 05/15/20 famotidine 20 mg PO DAILY 05/15/20 05/15/20 fluticasone propionate [Flonase 2 spray INTRANASAL DAILY 05/15/20 05/15/20 Allergy Relief] gabapentin 300 mg PO TID 05/15/20 05/15/20 guaifenesin [Mucinex] 600 mg PO BID 05/15/20 05/15/20 ipratropium-albuterol 3 ml INHALATION Q4H PRN 05/15/20 05/15/20 loteprednol etabonate [Lotemax] 1 drp OPHTHALMIC (EYE) DAILY 05/15/20 05/15/20 melatonin 5 mg PO HS 05/15/20 05/15/20 metoprolol tartrate 50 mg PO TID 05/15/20 05/15/20 miconazole nitrate 1 applic TOPICAL BID 05/15/20 05/15/20 mirtazapine 15 mg PO HS 05/15/20 05/15/20 multivitamin 1 tab PO DAILY 05/15/20 05/15/20 omega-3 fatty acids [Fish Oil] 2,000 mg PO DAILY 05/15/20 05/15/20 pantoprazole 40 mg PO BID 05/15/20 05/15/20 polyethylene glycol 3350 [Miralax] 17 g PO DAILY PRN 05/15/20 05/15/20 prochlorperazine maleate 5 mg PO Q8 PRN 05/15/20 05/15/20 promethazine [Phenergan] 25 mg SC Q6H PRN 05/15/20 05/15/20 simethicone 80 mg PO Q6 PRN 05/15/20 05/15/20 sodium chloride 0.9 % 0 ml IV UD 05/15/20 05/15/20 sucralfate [Carafate] 1 g PO ACHS 05/15/20 05/15/20 zinc sulfate 220 mg PO HS 05/15/20 05/15/20 Results & Data (ED) Vital Signs Vital Signs - 24 hr 05/15/20 18:42 05/15/20 20:25 05/15/20 20:26 Temperature 36.6 C Temperature Source Oral Pulse Rate 79 85 Pulse Rate [Right Finger] Pulse Rate from SpO2 Sensor 85 Respiratory Rate 16 Respiratory Effort / Characteristics Non-Labored Respiratory Depth Normal Blood Pressure 96/62 L 103/42 L Blood Pressure [Right Arm] Blood Pressure Mean 73 46 Blood Pressure Mean [Right Arm] Blood Pressure Position [Right Arm] Pulse Oximetry 96 95 95 Oxygen Delivery Method Room Air Room Air Room Air Sepsis Recent Fever Within 48 Hours No Sepsis New/Unexplained Change in Mental Status No Sepsis Action Taken by Nursing No Action Required 05/15/20 20:30 05/15/20 21:14 05/15/20 22:00 Temperature Temperature Source Pulse Rate 87 90 Pulse Rate [Right Finger] 88 86 Pulse Rate from SpO2 Sensor 88 Respiratory Rate 16 16 19 Respiratory Effort / Characteristics Respiratory Depth Normal Normal Blood Pressure 104/48 L 104/54 L Blood Pressure [Right Arm] 104/48 L 104/56 L Blood Pressure Mean 69 73 Blood Pressure Mean [Right Arm] 66 72 Blood Pressure Position [Right Arm] Lying Lying Pulse Oximetry 98 97 98 Oxygen Delivery Method Room Air Room Air Room Air Sepsis Recent Fever Within 48 Hours Sepsis New/Unexplained Change in Mental Status Sepsis Action Taken by Nursing 05/15/20 22:01 Temperature Temperature Source Pulse Rate 91 H Pulse Rate [Right Finger] Pulse Rate from SpO2 Sensor Respiratory Rate 28 H Respiratory Effort / Characteristics Respiratory Depth Blood Pressure Blood Pressure [Right Arm] Blood Pressure Mean Blood Pressure Mean [Right Arm] Blood Pressure Position [Right Arm] Pulse Oximetry Oxygen Delivery Method Sepsis Recent Fever Within 48 Hours Sepsis New/Unexplained Change in Mental Status Sepsis Action Taken by Nursing Laboratory Data Result diagrams: 05/15/20 21:47 05/15/20 20:07 Lab Results 05/15/20 05/15/20 05/15/20 Range/Units 20:07 20:07 20:07 WBC Cancelled RBC Cancelled Hgb Cancelled Hct Cancelled MCV Cancelled MCH Cancelled MCHC Cancelled RDW Std Deviation Cancelled RDW Coeff of Elvira Cancelled Plt Count Cancelled MPV Cancelled Immature Gran % (Auto) Cancelled Neut % (Auto) Cancelled Lymph % (Auto) Cancelled [place] % (Auto) Cancelled Eos % (Auto) Cancelled Baso % (Auto) Cancelled Neut # (Auto) Cancelled Lymph # (Auto) Cancelled [place] # (Auto) Cancelled Eos # (Auto) Cancelled Baso # (Auto) Cancelled Immature Gran # (Auto) Cancelled Absolute Nucleated RBC Cancelled Nucleated RBC % (auto) Cancelled Neutrophils % (Manual) Cancelled Band Neutrophils % Cancelled Lymphocytes % (Manual) Cancelled Prolymphocyte % Cancelled Reactive Lymphs % (Man) Cancelled Monocytes % (Manual) Cancelled Eosinophils % (Manual) Cancelled Basophils % (Manual) Cancelled Metamyelocytes % (Man) Cancelled Myelocytes % (Man) Cancelled Promyelocytes % (Man) Cancelled Blast Cells % (Manual) Cancelled Plasma Cell % (Manual) Cancelled Other Cells % Cancelled Nucleated RBC % Cancelled Neutrophils # (Manual) Cancelled Band Neutrophils # Cancelled Total Absolute Neuts Cancelled Lymphocytes # (Manual) Cancelled Prolymphocyte # Cancelled Reactive Lymphs # Cancelled Total Abs Lymphocytes Cancelled Monocytes # (Manual) Cancelled Eosinophils # (Manual) Cancelled Basophils # (Manual) Cancelled Metamyelocytes # (Man) Cancelled Myelocytes # (Manual) Cancelled Promyelocytes # (Man) Cancelled Blast Cells # (Man) Cancelled Plasma Cell # (Manual) Cancelled Other Cells # Cancelled Nucleated RBCs # (Man) Cancelled Hypersegmented Neuts Cancelled Hyposegmented Neuts Cancelled Hypogranular Neuts Cancelled Large Granular Lymphs Cancelled # Lrg Granular Lymphs Cancelled Hairy Cells Cancelled Smudge Cells Cancelled Toxic Granulation Cancelled Toxic Vacuolation Cancelled Dohle Bodies Cancelled Jefferson Rods Cancelled Platelet Estimate Cancelled Hypogranular Platelets Cancelled Clumped Platelets Cancelled Giant Platelets Cancelled Platelet Satelliting Cancelled RBC Morphology Cancelled Polychromasia Cancelled Hypochromasia Cancelled Poikilocytosis Cancelled Basophilic Stippling Cancelled Anisocytosis Cancelled Microcytosis Cancelled Macrocytosis Cancelled Spherocytes Cancelled Pappenheimer Bodies Cancelled Sickle Cells Cancelled Target Cells Cancelled Tear Drop Cells Cancelled Ovalocytes Cancelled Stomatocytes Cancelled Weaver-Bendena Bodies Cancelled Echinocytes Cancelled Acanthocytes (Spur) Cancelled Rouleaux Cancelled RBC Agglutinates Cancelled Schistocytes Cancelled RBC Morph Comment Cancelled Sezary Cell Cancelled PT Cancelled INR Cancelled APTT (21.0-31.0) Seconds PTT Ratio Sodium 139 (136-145) mmol/L Potassium 5.7 H (3.5-5.1) mmol/L Chloride 116 H (98-107) mmol/L Carbon Dioxide 18 L (21-32) mmol/L Anion Gap 5.0 (3-11) BUN 30 H (7-18) mg/dl Creatinine 5.20 H* (0.6-1.4) mg/dl Est Cr Clr Drug Dosing 14.5 ml/min Est GFR ( Amer) 12.6 Est GFR (Non-Af Amer) 10.9 BUN/Creatinine Ratio 5.8 L (10-20) Glucose 94 (70-99) mg/dl Calcium 9.4 (8.5-10.1) mg/dl Phosphorus 3.6 (2.5-4.9) mg/dl Magnesium 1.9 (1.8-2.4) mg/dl Total Bilirubin 0.5 (0.2-1) mg/dl AST 28 (15-37) U/L ALT 17 (12-78) U/L Alkaline Phosphatase 209 H (45-117) U/L Troponin I < 0.015 (0-0.045) ng/ml Total Protein 6.9 (6.4-8.2) gm/dl Albumin 2.1 L (3.4-5.0) gm/dl Globulin 4.8 H (2.5-4.0) gm/dl Albumin/Globulin Ratio 0.4 L (0.9-2) Lipase (73-393) U/L TSH 4.730 H (0.300-4.500) uIu/ml Free T4 1.03 (0.8-1.6) ng/dl Urine Color Urine Appearance (Clear) Urine pH (4.5-7.5) Ur Specific [place] (1.000-1.030) Urine Protein (Negative) Urine Glucose (UA) (Negative) Urine Ketones (Negative) Urine Blood (Negative) Urine Nitrite (Negative) Urine Bilirubin (Negative) Urine Urobilinogen (Negative) Ur Leukocyte Esterase (Negative) Urine WBC (Auto) (0-5) /hpf Urine RBC (Auto) (0-4) /hpf U Hyaline Cast (Auto) (0-5) /lpf U Epithel Cells (Auto) (0-5) /lpf Urine Bacteria (Auto) (Negative) 05/15/20 05/15/20 05/15/20 Range/Units 20:07 21:47 21:47 WBC 4.76 L RBC 2.62 L Hgb 8.3 L Hct 25.4 L MCV 96.9 MCH 31.7 MCHC 32.7 RDW Std Deviation 67.5 H RDW Coeff of Elvira 19.6 H Plt Count 79 L MPV 10.1 Immature Gran % (Auto) 0.8 Neut % (Auto) 58.2 Lymph % (Auto) 29.2 [place] % (Auto) 10.5 Eos % (Auto) 1.3 Baso % (Auto) 0.0 Neut # (Auto) 2.77 Lymph # (Auto) 1.39 [place] # (Auto) 0.50 Eos # (Auto) 0.06 Baso # (Auto) 0.00 Immature Gran # (Auto) 0.04 H Absolute Nucleated RBC Nucleated RBC % (auto) Neutrophils % (Manual) Band Neutrophils % Lymphocytes % (Manual) Prolymphocyte % Reactive Lymphs % (Man) Monocytes % (Manual) Eosinophils % (Manual) Basophils % (Manual) Metamyelocytes % (Man) Myelocytes % (Man) Promyelocytes % (Man) Blast Cells % (Manual) Plasma Cell % (Manual) Other Cells % Nucleated RBC % Neutrophils # (Manual) Band Neutrophils # Total Absolute Neuts Lymphocytes # (Manual) Prolymphocyte # Reactive Lymphs # Total Abs Lymphocytes Monocytes # (Manual) Eosinophils # (Manual) Basophils # (Manual) Metamyelocytes # (Man) Myelocytes # (Manual) Promyelocytes # (Man) Blast Cells # (Man) Plasma Cell # (Manual) Other Cells # Nucleated RBCs # (Man) Hypersegmented Neuts Hyposegmented Neuts Hypogranular Neuts Large Granular Lymphs # Lrg Granular Lymphs Hairy Cells Smudge Cells Toxic Granulation Toxic Vacuolation Dohle Bodies Jefferson Rods Platelet Estimate Hypogranular Platelets Clumped Platelets Giant Platelets Platelet Satelliting RBC Morphology Polychromasia Hypochromasia Poikilocytosis Basophilic Stippling Anisocytosis Microcytosis Macrocytosis Spherocytes Pappenheimer Bodies Sickle Cells Target Cells Tear Drop Cells Ovalocytes Stomatocytes Weaver-Bendena Bodies Echinocytes Acanthocytes (Spur) Rouleaux RBC Agglutinates Schistocytes RBC Morph Comment Sezary Cell PT 12.6 H INR 1.2 H APTT 21.7 (21.0-31.0) Seconds PTT Ratio 0.8 Sodium (136-145) mmol/L Potassium (3.5-5.1) mmol/L Chloride (98-107) mmol/L Carbon Dioxide (21-32) mmol/L Anion Gap (3-11) BUN (7-18) mg/dl Creatinine (0.6-1.4) mg/dl Est Cr Clr Drug Dosing ml/min Est GFR ( Amer) Est GFR (Non-Af Amer) BUN/Creatinine Ratio (10-20) Glucose (70-99) mg/dl Calcium (8.5-10.1) mg/dl Phosphorus (2.5-4.9) mg/dl Magnesium (1.8-2.4) mg/dl Total Bilirubin (0.2-1) mg/dl AST (15-37) U/L ALT (12-78) U/L Alkaline Phosphatase (45-117) U/L Troponin I (0-0.045) ng/ml Total Protein (6.4-8.2) gm/dl Albumin (3.4-5.0) gm/dl Globulin (2.5-4.0) gm/dl Albumin/Globulin Ratio (0.9-2) Lipase 242 (73-393) U/L TSH (0.300-4.500) uIu/ml Free T4 (0.8-1.6) ng/dl Urine Color Urine Appearance (Clear) Urine pH (4.5-7.5) Ur Specific [place] (1.000-1.030) Urine Protein (Negative) Urine Glucose (UA) (Negative) Urine Ketones (Negative) Urine Blood (Negative) Urine Nitrite (Negative) Urine Bilirubin (Negative) Urine Urobilinogen (Negative) Ur Leukocyte Esterase (Negative) Urine WBC (Auto) (0-5) /hpf Urine RBC (Auto) (0-4) /hpf U Hyaline Cast (Auto) (0-5) /lpf U Epithel Cells (Auto) (0-5) /lpf Urine Bacteria (Auto) (Negative) 05/15/20 Range/Units 22:35 WBC RBC Hgb Hct MCV MCH MCHC RDW Std Deviation RDW Coeff of Elvira Plt Count MPV Immature Gran % (Auto) Neut % (Auto) Lymph % (Auto) [place] % (Auto) Eos % (Auto) Baso % (Auto) Neut # (Auto) Lymph # (Auto) [place] # (Auto) Eos # (Auto) Baso # (Auto) Immature Gran # (Auto) Absolute Nucleated RBC Nucleated RBC % (auto) Neutrophils % (Manual) Band Neutrophils % Lymphocytes % (Manual) Prolymphocyte % Reactive Lymphs % (Man) Monocytes % (Manual) Eosinophils % (Manual) Basophils % (Manual) Metamyelocytes % (Man) Myelocytes % (Man) Promyelocytes % (Man) Blast Cells % (Manual) Plasma Cell % (Manual) Other Cells % Nucleated RBC % Neutrophils # (Manual) Band Neutrophils # Total Absolute Neuts Lymphocytes # (Manual) Prolymphocyte # Reactive Lymphs # Total Abs Lymphocytes Monocytes # (Manual) Eosinophils # (Manual) Basophils # (Manual) Metamyelocytes # (Man) Myelocytes # (Manual) Promyelocytes # (Man) Blast Cells # (Man) Plasma Cell # (Manual) Other Cells # Nucleated RBCs # (Man) Hypersegmented Neuts Hyposegmented Neuts Hypogranular Neuts Large Granular Lymphs # Lrg Granular Lymphs Hairy Cells Smudge Cells Toxic Granulation Toxic Vacuolation Dohle Bodies Jefferson Rods Platelet Estimate Hypogranular Platelets Clumped Platelets Giant Platelets Platelet Satelliting RBC Morphology Polychromasia Hypochromasia Poikilocytosis Basophilic Stippling Anisocytosis Microcytosis Macrocytosis Spherocytes Pappenheimer Bodies Sickle Cells Target Cells Tear Drop Cells Ovalocytes Stomatocytes Weaver-Bendena Bodies Echinocytes Acanthocytes (Spur) Rouleaux RBC Agglutinates Schistocytes RBC Morph Comment Sezary Cell PT INR APTT (21.0-31.0) Seconds PTT Ratio Sodium (136-145) mmol/L Potassium (3.5-5.1) mmol/L Chloride (98-107) mmol/L Carbon Dioxide (21-32) mmol/L Anion Gap (3-11) BUN (7-18) mg/dl Creatinine (0.6-1.4) mg/dl Est Cr Clr Drug Dosing ml/min Est GFR ( Amer) Est GFR (Non-Af Amer) BUN/Creatinine Ratio (10-20) Glucose (70-99) mg/dl Calcium (8.5-10.1) mg/dl Phosphorus (2.5-4.9) mg/dl Magnesium (1.8-2.4) mg/dl Total Bilirubin (0.2-1) mg/dl AST (15-37) U/L ALT (12-78) U/L Alkaline Phosphatase (45-117) U/L Troponin I (0-0.045) ng/ml Total Protein (6.4-8.2) gm/dl Albumin (3.4-5.0) gm/dl Globulin (2.5-4.0) gm/dl Albumin/Globulin Ratio (0.9-2) Lipase (73-393) U/L TSH (0.300-4.500) uIu/ml Free T4 (0.8-1.6) ng/dl Urine Color Yellow Urine Appearance Clear (Clear) Urine pH 5.0 (4.5-7.5) Ur Specific [place] 1.016 (1.000-1.030) Urine Protein 1+ H (Negative) Urine Glucose (UA) Negative (Negative) Urine Ketones Negative (Negative) Urine Blood Negative (Negative) Urine Nitrite Negative (Negative) Urine Bilirubin Negative (Negative) Urine Urobilinogen Negative (Negative) Ur Leukocyte Esterase Trace H (Negative) Urine WBC (Auto) 1-5 (0-5) /hpf Urine RBC (Auto) 0-4 (0-4) /hpf U Hyaline Cast (Auto) 5-10 H (0-5) /lpf U Epithel Cells (Auto) 5-10 H (0-5) /lpf Urine Bacteria (Auto) Negative (Negative) Administered Medications Discontinued Medications Calcium Gluconate (Calcium Gluconate 1000 Mg/60 Ml Nss) Confirm Administered Dose 1,000 mg IV .STK-MED ONE Stop: 05/15/20 20:21 Last Admin: 05/15/20 20:28 Dose: Not Given Documented by: [id number] Calcium Gluconate 1,000 mg/ (Sodium Chloride) 60 mls @ 240 mls/hr IV NOW ONE Stop: 05/15/20 18:56 Last Infusion: 05/15/20 20:42 Dose: 0 mls/hr Documented by: [id number] Admin: 05/15/20 20:27 Dose: 240 mls/hr Documented by: [id number] Sodium Chloride (Nss 1000ml) 1,000 mls @ 999 mls/hr IV .Q1H1M ONE Stop: 05/15/20 19:46 Last Infusion: 05/15/20 21:28 Dose: 0 mls/hr Documented by: [id number] Admin: 05/15/20 20:27 Dose: 999 mls/hr Documented by: [id number] Ceftriaxone Sodium (Rocephin) 1,000 mg in 50 mls @ 100 mls/hr IV NOW STA Stop: 05/15/20 23:21 Last Infusion: 05/15/20 23:40 Dose: 0 mls/hr Documented by: [id number] Admin: 05/15/20 23:10 Dose: 100 mls/hr Documented by: [id number] Ondansetron HCl (Ondansetron Inj 2 Mg/Ml 2 Ml Vial) 4 mg IV NOW STA Stop: 05/15/20 18:57 Last Admin: 05/15/20 20:27 Dose: 4 mg Documented by: [id number] Sodium Bicarbonate (Sodium Bicarb 8.4% Inj 50 Meq/50 Ml Syr) 50 meq IV NOW STA Stop: 05/15/20 18:47 Last Admin: 05/15/20 20:27 Dose: 50 meq Documented by: [id number] Discharge Plan Visit Data Chief Complaint: Abnormal Labs/Diagnostic Testing Stated Complaint: ABNORMAL LABS ED Provider: Dylan Hicks Discharge Problem: CHLOÉ (acute kidney injury) Patient Disposition: Admitted As Inpatient Discharge Instructions Interventions: ED Discharge Assessment Last Done: 05/15/20 23:55
--- NOTE | 2020-05-15 20:14 | XRay Report ---
SINGLE VIEW CHEST CLINICAL HISTORY: Generalized weakness. FINDINGS: An AP, portable, semierect chest radiograph is compared to study dated 04/20/2020 and corre lated with chest CT dated 03/12/2020. The examination is degraded by portable technique and patient ro tation. The heart is top normal for projection. The pulmonary vasculature is noncongested. Chronic in terstitial thickening is similar to previous. There is bibasilar scarring/atelectasis. No airspace co nsolidation or large pleural effusion is identified. No pneumothorax is seen. The skeletal structures are osteopenic. There are healed bilateral rib fractures. IMPRESSION: No acute cardiopulmonary abnormality. ACT 112: Negative or not required by law. Electronically signed by: Jair Song M.D. 05/15/2020 8:12 PM
[2020-05-15] MEDS ORDERED: CALCIUM GLUCONATE 1000 MG/60 ML NSS IV ONE (20:20)
[2020-05-15 20:50] LABS: Alanine Aminotransferase 17 U/L (12-78); Albumin Globulin Ratio 0.4 (0.9-2); Albumin Level 2.1 gm/dl (3.4-5.0); Alkaline Phosphatase 209 U/L (45-117); Aspartate Aminotransferase 28 U/L (15-37); BUN Creatinine Ratio 5.8 (10-20); Bilirubin,Total 0.5 mg/dl (0.2-1); Blood Urea Nitrogen 30 mg/dl (7-18); Calcium 9.4 mg/dl (8.5-10.1); Carbon Dioxide 18 mmol/L (21-32); Chloride 116 mmol/L (98-107); Creatinine Clr Calc Pharmacy 14.5 ml/min; Est GFR (African American) 12.6; Est GFR (Non-African American) 10.9; Globulin 4.8 gm/dl (2.5-4.0); Glucose 94 mg/dl (70-99); Magnesium 1.9 mg/dl (1.8-2.4); Phosphorus 3.6 mg/dl (2.5-4.9); Potassium 5.7 mmol/L (3.5-5.1); Sodium 139 mmol/L (136-145); Total Protein 6.9 gm/dl (6.4-8.2); Troponin I < 0.015 ng/ml (0-0.045)
[2020-05-15 21:06] LABS: T4 Free Thyroxine 1.03 ng/dl (0.8-1.6)
[2020-05-15 21:54] LABS: Hematocrit (blood only) 25.4 % (42-52); Hemoglobin 8.3 g/dL (14.0-18.0); Mean Corpuscular Hemoglobin 31.7 pg (25-34); Mean Corpuscular Hgb Conc 32.7 g/dL (32-36); Mean Corpuscular Volume 96.9 fL (80-100); RDW Coefficient of Variation 19.6 % (11.5-14.5); RDW Standard Deviation 67.5 fL (36.4-46.3); Red Blood Count 2.62 M/uL (4.7-6.1); White Blood Count 4.76 K/uL (4.8-10.8)
[2020-05-15 21:56] LABS: Mean Platelet Volume 10.1 fL (7.4-10.4); Platelet Count 79 K/uL (130-400)
[2020-05-15 22:05] LABS: INR 1.2 (0.9-1.1); Partial Thromboplastin Ratio 0.8; Partial Thromboplastin Time 21.7 Seconds (21.0-31.0); Prothrombin Time 12.6 Seconds (9.0-12.0)
--- NOTE | 2020-05-15 22:20 | History & Physical Report ---
Date of Service May 15, 2020 Assessment & Plan (1) Acute kidney injury superimposed on CKD: Patient is a 65 year old medically complex male with PMHx CKD, HTN, Multiple Myeloma, Paroxysmal Atrial Fibrillation, Retroperitoneal bleed, Legionella pneumonia, GA that presented due to one day history of fatigue, fever, chills, and found to have hyperkalemia and CHLOÉ on admission. CHLOÉ on CKD -Baseline creatinine ~2-2.5 -Creatinine 5.2 on admission -Suspect pre-renal etiology, though cannot rule out post-renal as patient notes he has only been urinating 1-2 times daily for 1 month and had retained ~800ml in ED -Will order for Urine sodium and Creatine for FeNA calculation, pending. -UA with trace leuk est, though will await cultures. -Friedman catheter placed for strict I/O -NSS 100ml/hr ?Pneumonia -Cefuroxime started 1 day ago for supposed PNA, though patient stating he felt well and was having no difficulties breathing. -Will hold Cefuroxime as patient is on empiric Ceftriaxone as above -CTA noting a possible pneumonia in the LLL, though clear on lung exam. Constipation -Will schedule for daily Miralax 2 packets -Significant amount of stool noted on CT scan Hyperkalemia -Patient with presenting K 5.7 -Given 50meq Bicarb and 1g Calcium Gluconate -Will hold on giving Patiromer at this time and monitor with fluid resuscitation -No peaked T waves noted on initial EKG Paroxysmal A fib -Does not appear to currently be in A fib -Continue home Amiodarone -Continue home Metoprolol -Not on anticoagulation at this time, likely due to hx and presence of retroperitoneal hematoma Retroperitoneal Hematoma -Noted to have decreased in size on CT to roughly 10mm Neuropathy -Continue home gabapentin GERD -Continue home Pantoprazole Anxiety -continue home Mirtazapine -Continue home Doxepin Allergic Rhinitis -Continue home Flonase -Continue home Zyrtec Multiple Myeloma -Will continue home Acyclovir for prophylaxis Dispo: Med/Surg Telemetry FEN: Low K diet, NSS 100ml/hr DVT: SCD Code: Full (2) Paroxysmal atrial fibrillation: (3) Essential hypertension: (4) Multiple myeloma: (5) Neuropathy: (6) Retroperitoneal bleed: History of Present Illness Chief Complaint: Fatigue, fever, chills Primary Care Provider: Rhonda Angel [facility] Patient is a 65 year old medically complex male with PMHx CKD, HTN, Multiple Myeloma, Paroxysmal Atrial Fibrillation, Retroperitoneal bleed, Legionella pneumonia, GA that presented due to one day history of fatigue, fever, chills, and found to have hyperkalemia and CHLOÉ on admission. Patient notes that throughout the day he had been sleeping more than usual and having on and off fever and chills. He notes that overnight he had a fever and was given tylenol. He states that while he has not had any pain with urination, he only urinates 1- 2 times at most a daily. He also states that his bowel movements have been primarily diarrhea since February. He notes poor PO intake and only has roughly 20oz of fluid daily. Lab work completed at [facility] showed that he had a worsening CHLOÉ and potassium level and he was sent to the ED for evaluation. Currently patient notes that his only discomfort involves his knee joints where they feel sore. He otherwise states he is no longer feeling fever, chills, SOB, chest pain, abdominal pain. Med Hx: Multiple Myeloma, CKD, HTN, Afib, Retroperitoneal hematoma, Cardiac Arrest Surg Hx: Cataract surgery, RUE repair with hardware (pt unsure what exactly) Fam Hx: Grandfather and Grandmother DM2, Father DM2, Sister DM2 Social Hx: Denies tobacco or drug use. Notes 1 alcoholic beverage weekly Allergies Allergy/AdvReac Type Severity Reaction Status Date / Time epinephrine Allergy Intermediate STATES Verified 05/15/20 20:40 GETS A "WARNER" levofloxacin Allergy Intermediate RASH Verified 05/15/20 20:40 Sulfa (Sulfonamide Allergy Intermediate Rash Verified 05/15/20 20:40 Antibiotics) house dust Allergy Unknown Itchy Verified 05/15/20 20:40 Eye(s) Home Medications Medication Instructions Recorded Confirmed Type Cetrizine 10 mg PO DAILY PRN 05/15/20 05/15/20 History Tylenol Supp 650 mg WA Q6 PRN 05/15/20 05/15/20 History acetaminophen [Tylenol] 650 mg PO Q4 PRN 05/15/20 05/15/20 History acyclovir 400 mg PO BID 05/15/20 05/15/20 History albuterol sulfate [Proventil HFA] 2 puff INHALATION Q6H PRN 05/15/20 05/15/20 History amiodarone 200 mg PO DAILY 05/15/20 05/15/20 History artifi.tears(hypromellose)(PF) 1 drp OPHTHALMIC (EYE) BID 05/15/20 05/15/20 History [GenTeal (PF)] ascorbic acid (vitamin C) [Vitamin 500 mg PO DAILY 05/15/20 05/15/20 History C] aspirin [Aspir-Low] 81 mg PO DAILY 05/15/20 05/15/20 History calcium carbonate-vitamin D3 1 tab PO DAILY 05/15/20 05/15/20 History [Calcium 600 + D(3)] cefuroxime axetil 250 mg PO BID 05/15/20 05/15/20 History cyanocobalamin (vitamin B-12) 1,000 mcg PO DAILY 05/15/20 05/15/20 History [Vitamin B-12] docusate sodium 100 mg PO DAILY PRN 05/15/20 05/15/20 History doxepin 100 mg PO HS 05/15/20 05/15/20 History famotidine 20 mg PO DAILY 05/15/20 05/15/20 History fluticasone propionate [Flonase 2 spray INTRANASAL DAILY 05/15/20 05/15/20 History Allergy Relief] gabapentin 300 mg PO TID 05/15/20 05/15/20 History guaifenesin [Mucinex] 600 mg PO BID 05/15/20 05/15/20 History ipratropium-albuterol 3 ml INHALATION Q4H PRN 05/15/20 05/15/20 History loteprednol etabonate [Lotemax] 1 drp OPHTHALMIC (EYE) DAILY 05/15/20 05/15/20 History melatonin 5 mg PO HS 05/15/20 05/15/20 History metoprolol tartrate 50 mg PO TID 05/15/20 05/15/20 History miconazole nitrate 1 applic TOPICAL BID 05/15/20 05/15/20 History mirtazapine 15 mg PO HS 05/15/20 05/15/20 History multivitamin 1 tab PO DAILY 05/15/20 05/15/20 History omega-3 fatty acids [Fish Oil] 2,000 mg PO DAILY 05/15/20 05/15/20 History pantoprazole 40 mg PO BID 05/15/20 05/15/20 History polyethylene glycol 3350 [Miralax] 17 g PO DAILY PRN 05/15/20 05/15/20 History prochlorperazine maleate 5 mg PO Q8 PRN 05/15/20 05/15/20 History promethazine [Phenergan] 25 mg WA Q6H PRN 05/15/20 05/15/20 History simethicone 80 mg PO Q6 PRN 05/15/20 05/15/20 History sodium chloride 0.9 % 0 ml IV UD 05/15/20 05/15/20 History sucralfate [Carafate] 1 g PO ACHS 05/15/20 05/15/20 History zinc sulfate 220 mg PO HS 05/15/20 05/15/20 History Past Med/Surg History Medical History Acute confusion Acute dehydration Acute kidney injury CKD (chronic kidney disease) Constipation Fever HTN (hypertension) Hypomagnesemia Multiple myeloma Multiple myeloma Neuropathy BL FOOT; 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 CANCER TREATMENT Pancytopenia Paroxysmal atrial fibrillation Retroperitoneal bleed Rhabdomyolysis Seasonal allergies Severe sepsis Surgical History History of bone marrow biopsy History of cataract surgery BL History of colonoscopy History of incision and drainage CYST - RT GROIN History of stem cell transplant History of surgery CYST REMOVED FROM COCCYX 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; 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 Family History Family/Other Family history of diabetes mellitus Social History Smoking Status: Never smoker Second Hand Exposure: No; Hx Alcohol Use: Yes Alcohol type: wine and hard liquor Hx Substance Use: No Preferred Language: Egyptian Communication Ability: Effective Leather Leveler Required: No Beliefs That Will Affect Care: None marital status: Single Current Living Situation: Alone and Rehab Current Living Situation Comment: [facility] Other Information That Helps Us Care for You: No Feels Safe at Home: Yes Safety Concerns: Feels Safe At This Time Assistive Devices: None Review of Systems Review of Systems: All systems reviewed & are unremarkable except as noted in Subjective Physical Exam Constitutional: well developed, well nourished and cooperative; no acute distress and not combative Eyes: PERRL, conjunctivae normal, anicteric sclerae ENMT: external ear and nose normal, oropharynx normal Neck: trachea midline, no thyromegaly Respiratory: normal respiratory effort, lungs clear to auscultation Cardiovascular: Rate/Rhythm: regular rate and regular rhythm Gastrointestinal (Abdomen): normal bowel sounds, soft, nontender, no hepatosplenomegaly Musculoskeletal: Head/Neck/Chest: normocephalic and head atraumatic Results & Data Results & Data ([facility]) Vital Signs (Past 12 Hours) Vital Signs Temp Pulse Resp BP Pulse Ox 05/15/20 20:26 95 05/15/20 20:25 85 103/42 L 95 05/15/20 18:42 36.6 C 79 16 96/62 L 96 Supervising Physician Co-Signing Physician Notes Attending addendum: I have physically seen this patient, have supervised the medical residents activities, and agree with the H&P unless as otherwise noted. Assessment and Plan: Acute kidney injury on chronic kidney disease/hyperkalemia- Creatinine 5.2 upon admission, with baseline range 2-2.5. Likely a function of prerenal and postobstructive uropathy Urine sodium and creatinine pending Continue Friedman catheter NSS 100 mils per hour continue IV fluid resuscitation and recheck laboratories in a.m. Paroxysmal atrial fibrillation- Continue amiodarone and metoprolol. No anticoagulation due to history of retroperitoneal hematoma Remaining orders and notations as noted Resident Activity Tracking Resident Involvement: Resident Care Provided Care Provided: Adult [facility] Medicine
[2020-05-15 22:33] LABS: Eosinophils # (auto) 0.06 K/uL (0-0.5); Eosinophils % (auto) 1.3 %; Immature Granulocytes # (auto) 0.04 K/uL (0.00-0.02); Immature Granulocytes % (auto) 0.8 %; Lymphocytes # (auto) 1.39 K/uL (1.2-3.4); Lymphocytes % (auto) 29.2 %; Monocytes % (auto) 10.5 %; Neutrophils # (auto) 2.77 K/uL (1.4-6.5); Neutrophils % (auto) 58.2 %
[2020-05-15 22:51] LABS: Appearance Urine Clear (Clear); Bacteria Urine Automated Negative (Negative); Bilirubin Urine Negative (Negative); Blood Urine Negative (Negative); Color Urine Yellow; Glucose Urine UA Negative (Negative); Ketones Urine Negative (Negative); Leukocyte Esterase Urine Trace (Negative); Nitrite Urine Negative (Negative); Protein Urine 1+ (Negative); RBC Urine Automated 0-4 /hpf (0-4); Specific Gravity Urine 1.016 (1.000-1.030); Urobilinogen Urine Negative (Negative)
[2020-05-15] MEDS ORDERED: cefTRIAXone SODIUM 1,000 MG/50 ML BAG IV STA (22:52)
[2020-05-16] MEDS ORDERED: ONDANSETRON INJ 2 MG/ML 2 ML VIAL IV PRN (00:18)
[2020-05-16] MEDS ORDERED: ALBUTEROL HFA 8 GM INHALER INH PRN (00:18)
[2020-05-16] MEDS ORDERED: ALBUT/IPRATROP 3MG/0.5MG NEB 3 ML VIAL INH PRN (00:18)
[2020-05-16] MEDS ORDERED: ACETAMINOPHEN 325 MG TAB PO PRN (00:18)
[2020-05-16] MEDS ORDERED: CETIRIZINE HCL 10 MG TABLET PO PRN (00:26)
[2020-05-16] MEDS ORDERED: MELATONIN 3 MG TAB PO PRN (00:36)
[2020-05-16] MEDS: SODIUM CHLORIDE 0.9% 1000ML 1,000 ML IV SCH ×2 (00:55→11:43)
[2020-05-16] MEDS: ACYCLOVIR 400 MG TAB PO SCH ×3 (00:56→21:25)
[2020-05-16] MEDS: cefTRIAXone SODIUM 2,000 MG in DEXTROSE 5% 50 ML IV SCH (01:00)
[2020-05-16 02:41] LABS: Creatinine Urine Random 76.6 mg/dl
[2020-05-16 06:25] LABS: Hematocrit (blood only) 24.4 % (42-52); Hemoglobin 8.1 g/dL (14.0-18.0); Mean Corpuscular Hemoglobin 32.3 pg (25-34); Mean Corpuscular Hgb Conc 33.2 g/dL (32-36); Mean Corpuscular Volume 97.2 fL (80-100); Mean Platelet Volume 9.8 fL (7.4-10.4); Platelet Count 74 K/uL (130-400); RDW Coefficient of Variation 19.5 % (11.5-14.5); RDW Standard Deviation 67.5 fL (36.4-46.3); Red Blood Count 2.51 M/uL (4.7-6.1); White Blood Count 3.88 K/uL (4.8-10.8)
[2020-05-16 07:02] LABS: Eosinophils # (auto) 0.05 K/uL (0-0.5); Eosinophils % (auto) 1.3 %; Immature Granulocytes # (auto) 0.03 K/uL (0.00-0.02); Immature Granulocytes % (auto) 0.8 %; Lymphocytes # (auto) 1.41 K/uL (1.2-3.4); Lymphocytes % (auto) 36.3 %; Monocytes # (auto) 0.44 K/uL (0.11-0.59); Monocytes % (auto) 11.3 %; Neutrophils # (auto) 1.95 K/uL (1.4-6.5); Neutrophils % (auto) 50.3 %
[2020-05-16 07:19] LABS: BUN Creatinine Ratio 5.5 (10-20); Calcium 9.4 mg/dl (8.5-10.1); Creatinine Clr Calc Pharmacy 16.5 ml/min; Est GFR (African American) 14.7; Est GFR (Non-African American) 12.7
[2020-05-16] MEDS: SUCRALFATE 1 GM TAB PO SCH ×4 (08:08→21:24)
[2020-05-16] MEDS: AMIODARONE 200 MG TAB PO SCH (08:08)
[2020-05-16] MEDS: FLUTICASONE PROPIONATE NA SPR 16 GM BTL SCH (08:16)
[2020-05-16] MEDS: FAMOTIDINE 20 MG TAB PO SCH (08:16)
[2020-05-16] MEDS: ASPIRIN 81 MG ECTAB PO SCH (08:16)
[2020-05-16] MEDS: METOPROLOL TARTRATE 50 MG TAB PO SCH ×3 (08:16→21:25)
[2020-05-16] MEDS: GABAPENTIN 300 MG CAP PO SCH ×3 (08:16→21:25)
[2020-05-16] MEDS: PANTOprazole 40 MG TAB PO SCH ×2 (08:16→21:25)
[2020-05-16] MEDS: POLYETHYLENE (MIRALAX) 17 GM PACK PO SCH (08:17)
--- NOTE | 2020-05-16 08:40 | CT Scan Report ---
ABDOMEN AND PELVIS CT WITHOUT CONTRAST CT DOSE: 600.90 mGy.cm HISTORY: Follow up study in a patient with retroperitoneal hematoma. Acute 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. Acute upper abdominal pain. upperabdpain, worsening renal fxn, hx retrobleed TECHNIQUE: Multiaxial CT images of the abdomen and pelvis were performed without contrast. A dose lo wering technique was utilized adhering to the principles of ALARA. COMPARISON STUDY: CT abdomen and pelvis 04/17/2020 FINDINGS: Mild patchy nodular consolidative opacities throughout the left greater then right lung bas es. Indeterminate unchanged 1.3 x 0.6 cm subpleural nodule adjacent to the right lung base on image 7 7 series 3. The imaged inferior cardiac chambers are unremarkable. There is no pneumatosis or pneumop eritoneum. The unenhanced spleen, moderately atrophic pancreas, and adrenal glands are unremarkable. Cholelithia sis. Partially contracted gallbladder. Equivocal pericholecystic stranding is likely secondary to mot ion artifact. Unenhanced liver is unremarkable. Probable cyst of the left hepatic lobe, 4 mm. Mild nonspecific bilateral perinephric stranding. No renal or ureteral calculi or obstructive uropath y. Probable cyst of the interpolar right kidney, 10 mm. Mild urinary bladder distention. Unremarkable prostate. Mild calcified plaque of the abdominal aorta. No adenopathy. Decreased size of the small r etroperitoneal hematoma, previously measuring up to approximately 3.6 cm in greatest dimension now me asuring up to 9 mm. There is no bowel obstruction or bowel wall thickening. Noninflamed appendix. Small fat filled perium bilical hernia. Numerous lytic lesions are again noted throughout the imaged osseous structures. Ther e are numerous chronic and subacute appearing likely pathologic bilateral rib fractures which are non displaced. T11 compression deformity, unchanged. IMPRESSION: 1. Decreased size of the tiny right-sided subacute retroperitoneal hematoma. 2. Minimal bibasilar opacities are suggestive of an infectious or inflammatory pneumonitis. 3. No bowel obstruction or bowel wall thickening. 4. Cholelithiasis. 5. No renal or ureteral calculi or obstructive uropathy. 6. Numerous lytic skeletal lesions redemonstrated compatible with patient's diagnosis of multiple mye kade. There are numerous nondisplaced subacute and chronic appearing bilateral rib fractures. ACT 112: Negative or not required by law. The above report was generated using voice recognition software. It may contain grammatical, syntax o r spelling errors. Electronically signed by: Mike Cullen M.D. 05/16/2020 8:38 AM
--- NOTE | 2020-05-16 11:02 | Nephrology Consultation ---
Date of Consultation May 16, 2020 Assessment & Plan (1) Acute kidney injury superimposed on CKD: * Baseline creatinine in April 2.3 mg/dL following hospitalization * CHLOÉ consistent with prerenal physiology and possible ATN * UA +1 protein, microscopy acellular, +hyaline casts * CT demonstrated kidneys to be unobstructed * Tolerating IVF, NSS switched to normosol * Goal would be to encourage positive fluid balance ~1 L in next 24 hours * Document strict I/O's * Oral HCO3 replacement provided * Hyperkalemia improving * Oral KCl supplement and lisinopril have been held * Repeat metabolic profile tomorrow AM * Medications are currently appropriately dosed for kidney dysfunction (2) CHLOÉ (acute kidney injury): (3) Retroperitoneal bleed: * Resolving per imaging, CT reviewed (4) Multiple myeloma: History of Present Illness Reason for Consultation: CHLOÉ/CKD Requesting Physician: Ilan Azevedo Attending Physician: Ilan Azevedo History of Present Illness Mr. Kirt Collins is a 65-year-old male with CKD, MM s/p autologous stem cell transplant x 2 (16), hypertension, atrial fibrillation, and neuropathy. He presented to the ER at [facility] from [facility] @ [facility] yesterday with hypotension and weakness. Mr. Collins has been diagnosed with suspected pneumonia and was found to be volume depleted. Mr. Collins has been started on treatment with NSS and ceftriaxone. Lisinopril has been held. Mr. Collins is non-oliguric. Creatinine elevated 5.2 mg/dL has improved to 4.6 mg/dL this AM. Electrolytes notable for hyperkalemia on admission. This has improved with supportive care. Metabolic acidosis associated with renal dysfunction. UA demonstrated +1 protein. Microscopy was acellular with several hyaline casts. CT of the abdomen and pelvis demonstrated the kidneys to be unobstructed. Multiple lytic skeletal lesions appreciated similar to prior imaging. Mr. Collins was lethargic but arousable this AM. He reported some confusion overnight but was oriented this morning. He denied any fevers or chills. He reported progressive weakness and poor appetite. He denied any pain. He denied any GI symptoms. He states that he has had a persistent non-productive cough but denies dyspnea. He denies chest pain. Medical history includes admission to [facility] from February 28-March 13. Mr. Collins was then transferred to [facility] s/p PEA arrest with a retroperitoneal bleed. He stabilized at [facility] with PRBC transfusion support. He was extubated on March 14 and eventually discharged to [facility] on March 22. He had initially presented to [facility] in February after being found down at home. He had fallen and developed rhabdomyolysis. Mr. Collins was diagnosed with coagulase negative staph bacteremia. Mediport was removed. He was also found to have Legionella pneumonia and acute kidney injury. Hospital course complicated by atrial fibrillation and re troperitoneal bleed as well as PEA. Baseline creatinine most recently was 2.3 mg/dL in April. Allergies Allergy/AdvReac Type Severity Reaction Status Date / Time epinephrine Allergy Intermediate STATES Verified 05/15/20 20:40 GETS A "WARNER" levofloxacin Allergy Intermediate RASH Verified 05/15/20 20:40 Sulfa (Sulfonamide Allergy Intermediate Rash Verified 05/15/20 20:40 Antibiotics) house dust Allergy Unknown Itchy Verified 05/15/20 20:40 Eye(s) Home Medications Medication Instructions Recorded Confirmed Type Cetrizine 10 mg PO DAILY PRN 05/15/20 05/15/20 History Tylenol Supp [address] Q6 PRN 05/15/20 05/15/20 History acetaminophen [Tylenol] 650 mg PO Q4 PRN 05/15/20 05/15/20 History acyclovir 400 mg PO BID 05/15/20 05/15/20 History albuterol sulfate [Proventil HFA] 2 puff INHALATION Q6H PRN 05/15/20 05/15/20 H istory amiodarone 200 mg PO DAILY 05/15/20 05/15/20 History artifi.tears(hypromellose)(PF) 1 drp OPHTHALMIC (EYE) BID 05/15/20 05/15/20 History [GenTeal (PF)] ascorbic acid (vitamin C) [Vitamin 500 mg PO DAILY 05/15/20 05/15/20 History C] aspirin [Aspir-Low] 81 mg PO DAILY 05/15/20 05/15/20 History calcium carbonate-vitamin D3 1 tab PO DAILY 05/15/20 05/15/20 History [Calcium 600 + D(3)] cefuroxime axetil 250 mg PO BID 05/15/20 05/15/20 History cyanocobalamin (vitamin B-12) 1,000 mcg PO DAILY 05/15/20 05/15/20 History [Vitamin B-12] docusate sodium 100 mg PO DAILY PRN 05/15/20 05/15/20 History doxepin 100 mg PO HS 05/15/20 05/15/20 History famotidine 20 mg PO DAILY 05/15/20 05/15/20 History fluticasone propionate [Flonase 2 spray INTRANASAL DAILY 05/15/20 05/15/20 History Allergy Relief] gabapentin 300 mg PO TID 05/15/20 05/15/20 History guaifenesin [Mucinex] 600 mg PO BID 05/15/20 05/15/20 History ipratropium-albuterol 3 ml INHALATION Q4H PRN 05/15/20 05/15/20 History loteprednol etabonate [Lotemax] 1 drp OPHTHALMIC (EYE) DAILY 05/15/20 05/15/20 History melatonin 5 mg PO HS 05/15/20 05/15/20 History metoprolol tartrate 50 mg PO TID 05/15/20 05/15/20 History miconazole nitrate 1 applic TOPICAL BID 05/15/20 05/15/20 History mirtazapine 15 mg PO HS 05/15/20 05/15/20 History multivitamin 1 tab PO DAILY 05/15/20 05/15/20 History omega-3 fatty acids [Fish Oil] 2,000 mg PO DAILY 05/15/20 05/15/20 History pantoprazole 40 mg PO BID 05/15/20 05/15/20 History polyethylene glycol 3350 [Miralax] 17 g PO DAILY PRN 05/15/20 05/15/20 History prochlorperazine maleate 5 mg PO Q8 PRN 05/15/20 05/15/20 History promethazine [Phenergan] [address] Q6H PRN 05/15/20 05/15/20 History simethicone 80 mg PO Q6 PRN 05/15/20 05/15/20 History sodium chloride 0.9 % 0 ml IV UD 05/15/20 05/15/20 History sucralfate [Carafate] 1 g PO ACHS 05/15/20 05/15/20 History zinc sulfate 220 mg PO HS 05/15/20 05/15/20 History Patient History Medical History Acute confusion Acute dehydration Acute kidney injury CKD (chronic kidney disease) Constipation Fever HTN (hypertension) Hypomagnesemia Multiple myeloma Multiple myeloma Neuropathy BL FOOT; 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 CANCER TREATMENT Pancytopenia Paroxysmal atrial fibrillation Retroperitoneal bleed Rhabdomyolysis Seasonal allergies Severe sepsis Surgical History History of bone marrow biopsy History of cataract surgery BL History of colonoscopy History of incision and drainage CYST - RT GROIN History of stem cell transplant History of surgery CYST REMOVED FROM COCCYX 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; 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 Family History Family/Other Family history of diabetes mellitus Social History Smoking Status: Never smoker Second Hand Exposure: No; Hx Alcohol Use: Yes Alcohol type: wine and hard liquor Hx Substance Use: No Preferred Language: Bahamian Communication Ability: Effective [employer]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: No Beliefs That Will Affect Care: None marital status: Single Current Living Situation: Alone and Rehab Current Living Situation Comment: [facility] Other Information That Helps Us Care for You: No Feels Safe at Home: Yes Safety Concerns: Feels Safe At This Time Assistive Devices: Glasses Review of Systems Review of Systems: All systems reviewed & are unremarkable except as noted in HPI & below Physical Exam Constitutional: well developed; no acute distress Eyes: no scleral abnormality and no corneal abnormality ENMT: Mouth: no oral mucosal abnormality and oral mucous membranes not dry Neck: normal visual inspection and trachea midline Respiratory: normal respiratory effort Auscultation: lungs clear to auscultation bilaterally Cardiovascular: Rate/Rhythm: regular rate Heart Sounds: normal S1 and normal S2 Extremities: no edema Musculoskeletal: Extremities: no cyanosis and no clubbing Skin: normal turgor; no rashes Neurologic: Motor/Sensory: no tremor and no asterixis Psychiatric: Orientation: alert and oriented x 3 Results & Data ([facility]) Vital Signs (Past 12 Hours) Vital Signs Temp Pulse Pulse Resp BP BP Pulse Ox 05/16/20 07:51 36.8 C 100 H 18 119/69 97 05/16/20 07:21 93 H 05/16/20 04:28 37 C 97 H 18 87/50 L 94 05/16/20 00:20 37.0 C 94 H 16 110/63 99 05/16/20 00:00 92 H 05/15/20 23:47 95 H 22 93/46 L 97 05/15/20 23:00 92 H 20 98/51 L 96 Laboratory Results Laboratory Results - last 24 hr 05/15/20 05/15/20 05/15/20 20:07 20:07 20:07 WBC Cancelled RBC Cancelled Hgb Cancelled Hct Cancelled MCV Cancelled MCH Cancelled MCHC Cancelled RDW Std Deviation Cancelled RDW Coeff of Elvira Cancelled Plt Count Cancelled MPV Cancelled Immature Gran % (Auto) Cancelled Neut % (Auto) Cancelled Lymph % (Auto) Cancelled [place] % (Auto) Cancelled Eos % (Auto) Cancelled Baso % (Auto) Cancelled Neut # (Auto) Cancelled Lymph # (Auto) Cancelled [place] # (Auto) Cancelled Eos # (Auto) Cancelled Baso # (Auto) Cancelled Immature Gran # (Auto) Cancelled Absolute Nucleated RBC Cancelled Nucleated RBC % (auto) Cancelled Neutrophils % (Manual) Cancelled Band Neutrophils % Cancelled Lymphocytes % (Manual) Cancelled Prolymphocyte % Cancelled Reactive Lymphs % (Man) Cancelled Monocytes % (Manual) Cancelled Eosinophils % (Manual) Cancelled Basophils % (Manual) Cancelled Metamyelocytes % (Man) Cancelled Myelocytes % (Man) Cancelled Promyelocytes % (Man) Cancelled Blast Cells % (Manual) Cancelled Plasma Cell % (Manual) Cancelled Other Cells % Cancelled Nucleated RBC % Cancelled Neutrophils # (Manual) Cancelled Band Neutrophils # Cancelled Total Absolute Neuts Cancelled Lymphocytes # (Manual) Cancelled Prolymphocyte # Cancelled Reactive Lymphs # Cancelled Total Abs Lymphocytes Cancelled Monocytes # (Manual) Cancelled Eosinophils # (Manual) Cancelled Basophils # (Manual) Cancelled Metamyelocytes # (Man) Cancelled Myelocytes # (Manual) Cancelled Promyelocytes # (Man) Cancelled Blast Cells # (Man) Cancelled Plasma Cell # (Manual) Cancelled Other Cells # Cancelled Nucleated RBCs # (Man) Cancelled Hypersegmented Neuts Cancelled Hyposegmented Neuts Cancelled Hypogranular Neuts Cancelled Large Granular Lymphs Cancelled # Lrg Granular Lymphs Cancelled Hairy Cells Cancelled Smudge Cells Cancelled Toxic Granulation Cancelled Toxic Vacuolation Cancelled Dohle Bodies Cancelled Jefferson Rods Cancelled Platelet Estimate Cancelled Hypogranular Platelets Cancelled Clumped Platelets Cancelled Giant Platelets Cancelled Platelet Satelliting Cancelled RBC Morphology Cancelled Polychromasia Cancelled Hypochromasia Cancelled Poikilocytosis Cancelled Basophilic Stippling Cancelled Anisocytosis Cancelled Microcytosis Cancelled Macrocytosis Cancelled Spherocytes Cancelled Pappenheimer Bodies Cancelled Sickle Cells Cancelled Target Cells Cancelled Tear Drop Cells Cancelled Ovalocytes Cancelled Stomatocytes Cancelled [place] Bodies Cancelled Echinocytes Cancelled Acanthocytes (Spur) Cancelled Rouleaux Cancelled RBC Agglutinates Cancelled Schistocytes Cancelled RBC Morph Comment Cancelled Sezary Cell Cancelled PT Cancelled INR Cancelled APTT PTT Ratio Sodium 139 Potassium 5.7 H Chloride 116 H Carbon Dioxide 18 L Anion Gap 5.0 BUN 30 H Creatinine 5.20 H* Est Cr Clr Drug Dosing 14.5 Est GFR ( Amer) 12.6 Est GFR (Non-Af Amer) 10.9 BUN/Creatinine Ratio 5.8 L Glucose 94 Calcium 9.4 Phosphorus 3.6 Magnesium 1.9 Total Bilirubin 0.5 AST 28 ALT 17 Alkaline Phosphatase 209 H Troponin I < 0.015 Total Protein 6.9 Albumin 2.1 L Globulin 4.8 H Albumin/Globulin Ratio 0.4 L Lipase TSH 4.730 H Free T4 1.03 Urine Color Urine Appearance Urine pH Ur Specific St[place]augh Urine Protein Urine Glucose (UA) Urine Ketones Urine Blood Urine Nitrite Urine Bilirubin Urine Urobilinogen Ur Leukocyte Esterase Urine WBC (Auto) Urine RBC (Auto) U Hyaline Cast (Auto) U Epithel Cells (Auto) Urine Bacteria (Auto) Ur Random Creatinine Ur Random Sodium Nasal Screen MRSA (PCR) SARS-CoV-2 Ag (Rapid) 05/15/20 05/15/20 05/15/20 20:07 21:47 21:47 WBC 4.76 L RBC 2.62 L Hgb 8.3 L Hct 25.4 L MCV 96.9 MCH 31.7 MCHC 32.7 RDW Std Deviation 67.5 H RDW Coeff of Elvira 19.6 H Plt Count 79 L MPV 10.1 Immature Gran % (Auto) 0.8 Neut % (Auto) 58.2 Lymph % (Auto) 29.2 [place] % (Auto) 10.5 Eos % (Auto) 1.3 Baso % (Auto) 0.0 Neut # (Auto) 2.77 Lymph # (Auto) 1.39 [place] # (Auto) 0.50 Eos # (Auto) 0.06 Baso # (Auto) 0.00 Immature Gran # (Auto) 0.04 H Absolute Nucleated RBC Nucleated RBC % (auto) Neutrophils % (Manual) Band Neutrophils % Lymphocytes % (Manual) Prolymphocyte % Reactive Lymphs % (Man) Monocytes % (Manual) Eosinophils % (Manual) Basophils % (Manual) Metamyelocytes % (Man) Myelocytes % (Man) Promyelocytes % (Man) Blast Cells % (Manual) Plasma Cell % (Manual) Other Cells % Nucleated RBC % Neutrophils # (Manual) Band Neutrophils # Total Absolute Neuts Lymphocytes # (Manual) Prolymphocyte # Reactive Lymphs # Total Abs Lymphocytes Monocytes # (Manual) Eosinophils # (Manual) Basophils # (Manual) Metamyelocytes # (Man) Myelocytes # (Manual) Promyelocytes # (Man) Blast Cells # (Man) Plasma Cell # (Manual) Other Cells # Nucleated RBCs # (Man) Hypersegmented Neuts Hyposegmented Neuts Hypogranular Neuts Large Granular Lymphs # Lrg Granular Lymphs Hairy Cells Smudge Cells Toxic Granulation Toxic Vacuolation Dohle Bodies Jefferson Rods Platelet Estimate Hypogranular Platelets Clumped Platelets Giant Platelets Platelet Satelliting RBC Morphology Polychromasia Hypochromasia Poikilocytosis Basophilic Stippling Anisocytosis Microcytosis Macrocytosis Spherocytes Pappenheimer Bodies Sickle Cells Target Cells Tear Drop Cells Ovalocytes Stomatocytes [place] Bodies Echinocytes Acanthocytes (Spur) Rouleaux RBC Agglutinates Schistocytes RBC Morph Comment Sezary Cell PT 12.6 H INR 1.2 H APTT 21.7 PTT Ratio 0.8 Sodium Potassium Chloride Carbon Dioxide Anion Gap BUN Creatinine Est Cr Clr Drug Dosing Est GFR ( Amer) Est GFR (Non-Af Amer) BUN/Creatinine Ratio Glucose Calcium Phosphorus Magnesium Total Bilirubin AST ALT Alkaline Phosphatase Troponin I Total Protein Albumin Globulin Albumin/Globulin Ratio Lipase 242 TSH Free T4 Urine Color Urine Appearance Urine pH Ur Specific [place]augh Urine Protein Urine Glucose (UA) Urine Ketones Urine Blood Urine Nitrite Urine Bilirubin Urine Urobilinogen Ur Leukocyte Esterase Urine WBC (Auto) Urine RBC (Auto) U Hyaline Cast (Auto) U Epithel Cells (Auto) Urine Bacteria (Auto) Ur Random Creatinine Ur Random Sodium Nasal Screen MRSA (PCR) SARS-CoV-2 Ag (Rapid) 05/15/20 05/15/20 05/15/20 22:35 22:35 Unknown WBC RBC Hgb Hct MCV MCH MCHC RDW Std Deviation RDW Coeff of Elvira Plt Count MPV Immature Gran % (Auto) Neut % (Auto) Lymph % (Auto) [place] % (Auto) Eos % (Auto) Baso % (Auto) Neut # (Auto) Lymph # (Auto) [place] # (Auto) Eos # (Auto) Baso # (Auto) Immature Gran # (Auto) Absolute Nucleated RBC Nucleated RBC % (auto) Neutrophils % (Manual) Band Neutrophils % Lymphocytes % (Manual) Prolymphocyte % Reactive Lymphs % (Man) Monocytes % (Manual) Eosinophils % (Manual) Basophils % (Manual) Metamyelocytes % (Man) Myelocytes % (Man) Promyelocytes % (Man) Blast Cells % (Manual) Plasma Cell % (Manual) Other Cells % Nucleated RBC % Neutrophils # (Manual) Band Neutrophils # Total Absolute Neuts Lymphocytes # (Manual) Prolymphocyte # Reactive Lymphs # Total Abs Lymphocytes Monocytes # (Manual) Eosinophils # (Manual) Basophils # (Manual) Metamyelocytes # (Man) Myelocytes # (Manual) Promyelocytes # (Man) Blast Cells # (Man) Plasma Cell # (Manual) Other Cells # Nucleated RBCs # (Man) Hypersegmented Neuts Hyposegmented Neuts Hypogranular Neuts Large Granular Lymphs # Lrg Granular Lymphs Hairy Cells Smudge Cells Toxic Granulation Toxic Vacuolation Dohle Bodies Jefferson Rods Platelet Estimate Hypogranular Platelets Clumped Platelets Giant Platelets Platelet Satelliting RBC Morphology Polychromasia Hypochromasia Poikilocytosis Basophilic Stippling Anisocytosis Microcytosis Macrocytosis Spherocytes Pappenheimer Bodies Sickle Cells Target Cells Tear Drop Cells Ovalocytes Stomatocytes [place] Bodies Echinocytes Acanthocytes (Spur) Rouleaux RBC Agglutinates Schistocytes RBC Morph Comment Sezary Cell PT INR APTT PTT Ratio Sodium Potassium Chloride Carbon Dioxide Anion Gap BUN Creatinine Est Cr Clr Drug Dosing Est GFR ( Amer) Est GFR (Non-Af Amer) BUN/Creatinine Ratio Glucose Calcium Phosphorus Magnesium Total Bilirubin AST ALT Alkaline Phosphatase Troponin I Total Protein Albumin Globulin Albumin/Globulin Ratio Lipase TSH Free T4 Urine Color Yellow Urine Appearance Clear Urine pH 5.0 Ur Specific [place]augh 1.016 Urine Protein 1+ H Urine Glucose (UA) Negative Urine Ketones Negative Urine Blood Negative Urine Nitrite Negative Urine Bilirubin Negative Urine Urobilinogen Negative Ur Leukocyte Esterase Trace H Urine WBC (Auto) 1-5 Urine RBC (Auto) 0-4 U Hyaline Cast (Auto) 5-10 H U Epithel Cells (Auto) 5-10 H Urine Bacteria (Auto) Negative Ur Random Creatinine 76.6 Ur Random Sodium 97 Nasal Screen MRSA (PCR) SARS-CoV-2 Ag (Rapid) Negative 05/16/20 05/16/20 05/16/20 06:08 06:08 Unknown WBC 3.88 L RBC 2.51 L Hgb 8.1 L Hct 24.4 L MCV 97.2 MCH 32.3 MCHC 33.2 RDW Std Deviation 67.5 H RDW Coeff of Elvira 19.5 H Plt Count 74 L MPV 9.8 Immature Gran % (Auto) 0.8 Neut % (Auto) 50.3 Lymph % (Auto) 36.3 [place] % (Auto) 11.3 Eos % (Auto) 1.3 Baso % (Auto) 0.0 Neut # (Auto) 1.95 Lymph # (Auto) 1.41 [place] # (Auto) 0.44 Eos # (Auto) 0.05 Baso # (Auto) 0.00 Immature Gran # (Auto) 0.03 H Absolute Nucleated RBC Nucleated RBC % (auto) Neutrophils % (Manual) Band Neutrophils % Lymphocytes % (Manual) Prolymphocyte % Reactive Lymphs % (Man) Monocytes % (Manual) Eosinophils % (Manual) Basophils % (Manual) Metamyelocytes % (Man) Myelocytes % (Man) Promyelocytes % (Man) Blast Cells % (Manual) Plasma Cell % (Manual) Other Cells % Nucleated RBC % Neutrophils # (Manual) Band Neutrophils # Total Absolute Neuts Lymphocytes # (Manual) Prolymphocyte # Reactive Lymphs # Total Abs Lymphocytes Monocytes # (Manual) Eosinophils # (Manual) Basophils # (Manual) Metamyelocytes # (Man) Myelocytes # (Manual) Promyelocytes # (Man) Blast Cells # (Man) Plasma Cell # (Manual) Other Cells # Nucleated RBCs # (Man) Hypersegmented Neuts Hyposegmented Neuts Hypogranular Neuts Large Granular Lymphs # Lrg Granular Lymphs Hairy Cells Smudge Cells Toxic Granulation Toxic Vacuolation Dohle Bodies Jefferson Rods Platelet Estimate Hypogranular Platelets Clumped Platelets Giant Platelets Platelet Satelliting RBC Morphology Polychromasia Hypochromasia Poikilocytosis Basophilic Stippling Anisocytosis Microcytosis Macrocytosis Spherocytes Pappenheimer Bodies Sickle Cells Target Cells Tear Drop Cells Ovalocytes Stomatocytes [place] Bodies Echinocytes Acanthocytes (Spur) Rouleaux RBC Agglutinates Schistocytes RBC Morph Comment Sezary Cell PT INR APTT PTT Ratio Sodium 144 Potassium 5.0 Chloride 118 H Carbon Dioxide 18 L Anion Gap 8.0 BUN 25 H Creatinine 4.57 H* D Est Cr Clr Drug Dosing 16.5 Est GFR ( Amer) 14.7 Est GFR (Non-Af Amer) 12.7 BUN/Creatinine Ratio 5.5 L Glucose 86 Calcium 9.4 Phosphorus Magnesium Total Bilirubin AST ALT Alkaline Phosphatase Troponin I Total Protein Albumin Globulin Albumin/Globulin Ratio Lipase TSH Free T4 Urine Color Urine Appearance Urine pH Ur Specific Stambaugh Urine Protein Urine Glucose (UA) Urine Ketones Urine Blood Urine Nitrite Urine Bilirubin Urine Urobilinogen Ur Leukocyte Esterase Urine WBC (Auto) Urine RBC (Auto) U Hyaline Cast (Auto) U Epithel Cells (Auto) Urine Bacteria (Auto) Ur Random Creatinine Ur Random Sodium Nasal Screen MRSA (PCR) Negative SARS-CoV-2 Ag (Rapid) PG Care Time/CCT Total # of Minutes Spent Total Time Spent with Patient: Total time spent is greater than 50% in coordination of care (as documented) at patient's floor/unit and/or counseling patient: Coding Level of Care Code 21474 Inpt Consult Level 4 Diagnoses Acute kidney injury superimposed on CKD N17.9; N18.9 CHLOÉ (acute kidney injury) N17.9 Retroperitoneal bleed R58 Multiple myeloma C90.00
[2020-05-16] MEDS ORDERED: NORMOSOL-R 1,000 ML IV ONE (11:04)
--- NOTE | 2020-05-16 11:57 | Electrocardiogram Report ---
Test Reason : Blood Pressure : / mmHG Vent. Rate : 078 BPM Atrial Rate : 078 BPM P-R Int : 172 ms QRS Dur : 078 ms QT Int : 348 ms P-R-T Axes : 033 030 015 degrees QTc Int : 396 ms Poor data quality, interpretation may be adversely affected Normal sinus rhythm Low voltage QRS Nonspecific ST abnormality Abnormal ECG When compared with ECG of 17-APR-2020 06:31, QT has shortened Confirmed by Haja Gaona ([id number]) on 05/16/2020 11:57:19 AM Referred By: Jeanne hernandez [facility] Confirmed By:Haja Gaona
[2020-05-16] MEDS: SODIUM BICARBONATE 650 MG TAB PO SCH ×2 (16:09→21:25)
[2020-05-16] MEDS: DOXEPIN HCL 50 MG CAPSULE PO SCH (21:25)
[2020-05-16] MEDS: MIRTAZAPINE TAB 15 MG TAB PO SCH (21:25)
--- NOTE | 2020-05-16 22:37 | Hospitalist Progress Note ---
Date of Service May 16, 2020 Assessment & Plan (1) Acute kidney injury superimposed on CKD: Patient is a 65 year old medically complex male with PMHx CKD, HTN, Multiple Myeloma, Paroxysmal Atrial Fibrillation, Retroperitoneal bleed, Legionella pneumonia, [place] that presented due to one day history of fatigue, fever, chills, and found to have hyperkalemia and CHLOÉ on admission. CHLOÉ on CKD -Baseline creatinine ~2-2.5 -Creatinine 5.2 on admission- improved to 4. will continue IVF. -appreciate input from nephro -Friedman catheter placed for strict I/O \ ?Pneumonia -Cefuroxime started 1 day ago for supposed PNA, though patient stating he felt well and was having no difficulties breathing. -Will hold Cefuroxime as patient is on empiric Ceftriaxone as above -CTA noting a possible pneumonia in the LLL, though clear on lung exam. Constipation -Will schedule for daily Miralax 2 packets -Significant amount of stool noted on CT scan Hyperkalemia -Patient with presenting K 5.7 -improved to 5 Neuropathy -Continue home gabapentin GERD -Continue home Pantoprazole Anxiety -continue home Mirtazapine -Continue home Doxepin Allergic Rhinitis -Continue home Flonase -Continue home Zyrtec (2) Paroxysmal atrial fibrillation: -Does not appear to currently be in A fib -Continue home Amiodarone -Continue home Metoprolol -Not on anticoagulation at this time, likely due to hx and presence of retroperitoneal hematoma (3) Essential hypertension: (4) Multiple myeloma: -Will continue home Acyclovir for prophylaxis Dispo: Med/Surg Telemetry FEN: Low K diet, NSS 100ml/hr DVT: SCD Code: Full (5) Neuropathy: (6) Retroperitoneal bleed: -Noted to have decreased in size on CT to roughly 10mm Admission and Anticipated Discharge Date Admission Date: May 15, 2020 Subjective Patient was somewhat confused this morning, though he has no complaints. Review of Systems Review of Systems: All systems reviewed & are unremarkable except as noted in HPI & below Physical Exam Physical Exam: Constitutional: well developed, well nourished and cooperative; no acute distress and not combative Eyes: PERRL, conjunctivae normal, anicteric sclerae ENMT: external ear and nose normal, oropharynx normal Neck: trachea midline, no thyromegaly Respiratory: normal respiratory effort, lungs clear to auscultation Cardiovascular: Rate/Rhythm: regular rate and regular rhythm Gastrointestinal (Abdomen): normal bowel sounds, soft, nontender, no hepatosplenomegaly Musculoskeletal: Head/Neck/Chest: normocephalic and head atraumatic Results & Data Results & Data ([facility]) Vital Signs (Past 12 Hours) Vital Signs Temp Pulse Pulse Pulse Resp BP Pulse Ox 05/16/20 21:21 80 117/60 05/16/20 19:00 36.8 C 79 8 L 99/61 L 96 05/16/20 16:00 82 05/16/20 15:44 36.8 C 81 18 97/60 L 97 05/16/20 11:38 36.8 C 81 18 102/68 99 PG Care Time/CCT Total # of Minutes Spent Total Time Spent with Patient: Total time spent is greater than 50% in coordination of care (as documented) at patient's floor/unit and/or counseling patient: Coding Level of Care Code 60957 Subseq Hosp Care Lvl 3 Diagnoses Acute kidney injury superimposed on CKD N17.9; N18.9 Paroxysmal atrial fibrillation I48.0 Essential hypertension I10 Multiple myeloma C90.00 Neuropathy G62.9 Retroperitoneal bleed R58 Time Spent (min) 35
[2020-05-17] MEDS: cefTRIAXone SODIUM 2,000 MG in DEXTROSE 5% 50 ML IV SCH (01:10)
--- NOTE | 2020-05-17 06:34 | Billing Data ---
Date of Service May 17, 2020 Coding Level of Care Code 62248 Initial Inpt Care Lvl 3
[2020-05-17] MEDS: METOPROLOL TARTRATE 50 MG TAB PO SCH ×3 (07:55→20:29)
[2020-05-17] MEDS: ACYCLOVIR 400 MG TAB PO SCH ×2 (07:55→20:28)
[2020-05-17] MEDS: PANTOprazole 40 MG TAB PO SCH ×2 (07:55→20:29)
[2020-05-17] MEDS: SUCRALFATE 1 GM TAB PO SCH ×4 (07:56→20:30)
[2020-05-17] MEDS: FAMOTIDINE 20 MG TAB PO SCH (07:56)
[2020-05-17] MEDS: GABAPENTIN 300 MG CAP PO SCH ×3 (07:56→20:29)
[2020-05-17] MEDS: AMIODARONE 200 MG TAB PO SCH (07:56)
[2020-05-17] MEDS: SODIUM BICARBONATE 650 MG TAB PO SCH (07:57)
[2020-05-17] MEDS: FLUTICASONE PROPIONATE NA SPR 16 GM BTL SCH (07:57)
[2020-05-17] MEDS: ASPIRIN 81 MG ECTAB PO SCH (07:57)
[2020-05-17] MEDS: POLYETHYLENE (MIRALAX) 17 GM PACK PO SCH (07:59)
[2020-05-17 08:32] LABS: Hematocrit (blood only) 26.7 % (42-52); Hemoglobin 8.8 g/dL (14.0-18.0); Mean Corpuscular Volume 97.1 fL (80-100); RDW Coefficient of Variation 19.4 % (11.5-14.5); RDW Standard Deviation 66.6 fL (36.4-46.3); Red Blood Count 2.75 M/uL (4.7-6.1); White Blood Count 3.56 K/uL (4.8-10.8)
[2020-05-17 08:35] LABS: Mean Platelet Volume 10.6 fL (7.4-10.4); Platelet Count 91 K/uL (130-400)
[2020-05-17 09:03] LABS: Eosinophils # (auto) 0.04 K/uL (0-0.5); Eosinophils % (auto) 1.1 %; Immature Granulocytes # (auto) 0.02 K/uL (0.00-0.02); Immature Granulocytes % (auto) 0.6 %; Lymphocytes # (auto) 1.36 K/uL (1.2-3.4); Lymphocytes % (auto) 38.2 %; Monocytes # (auto) 0.29 K/uL (0.11-0.59); Monocytes % (auto) 8.1 %; Neutrophils # (auto) 1.85 K/uL (1.4-6.5)
[2020-05-17 09:06] LABS: BUN Creatinine Ratio 4.8 (10-20); Calcium 9.4 mg/dl (8.5-10.1); Creatinine Clr Calc Pharmacy 19.1 ml/min; Est GFR (African American) 17.5; Est GFR (Non-African American) 15.1; Potassium 4.5 mmol/L (3.5-5.1)
--- NOTE | 2020-05-17 09:26 | Nephrology Progress Note ---
Date of Service May 17, 2020 Assessment & Plan (1) Acute kidney injury superimposed on CKD: * CHLOÉ consistent with prerenal physiology and possible ATN * UA +1 protein, microscopy acellular, +hyaline casts * CT demonstrated kidneys to be unobstructed * Continue gentle hydration * Continue to hold JAVON inhibitor (2) Chronic kidney disease: * Baseline Cr 2.0 (3) Hyperkalemia: * Resolved * Continue low K diet (4) Metabolic acidosis: * Corrected. Will stop NaHCO3 and monitor (5) Retroperitoneal bleed: * Resolving per imaging, CT reviewed (6) Multiple myeloma: * s/p ABMT x2 Admission and Anticipated Discharge Date Admission Date: May 15, 2020 Subjective Mr. Collins was seen & examined in his hospital room this morning. He had one episode of emesis this morning. He reports that he is tolerating IV hydration without dyspnea or progressive edema. Friedman catheter remains in place draining clear yellow urine Review of Systems Constitutional: no fever Eyes: no problem reported Ear, Nose, Mouth, Throat: no problem reported Respiratory: no dyspnea Cardiovascular: no chest pain, no palpitations and no edema Gastrointestinal: + nausea and + vomiting; no abdominal pain and no diarrhea/loose stools Musculoskeletal: no back pain Integumentary: no rash Neurologic: no dizziness and no confusion Physical Exam Constitutional: no acute distress Eyes: PERRL, conjunctivae normal, anicteric sclerae ENMT: external ear and nose normal, oropharynx normal Neck: trachea midline, no thyromegaly Respiratory: normal respiratory effort, lungs clear to auscultation Cardiovascular: RRR, no murmur, no edema Gastrointestinal (Abdomen): normal bowel sounds, soft, nontender, no hepatosplenomegaly Musculoskeletal: Extremities: no cyanosis Skin: no rashes, warm and dry Neurologic: awake; not confused Results & Data ([facility]) Vital Signs (Past 12 Hours) Vital Signs Temp Pulse Pulse Pulse Resp BP Pulse Ox 05/17/20 09:16 36.7 C 84 13 93/58 L 98 05/17/20 08:52 81 05/17/20 08:06 36.8 C 76 13 119/64 76 L 05/17/20 08:05 84 20 101/68 05/17/20 03:11 78 05/17/20 03:00 36.2 C L 79 12 97/58 L 05/16/20 23:00 36.5 C 77 10 L 80/45 L 95 Laboratory Tests 05/15/20 05/15/20 05/16/20 20:07 20:07 06:08 WBC 3.88 L Hgb 8.1 L Hct 24.4 L Plt Count 74 L Sodium Potassium Chloride Carbon Dioxide BUN Creatinine Glucose AST 28 ALT 17 Alkaline Phosphatase 209 H Albumin 2.1 L Lipase 242 05/16/20 06:08 WBC Hgb Hct Plt Count Sodium 144 Potassium 5.0 Chloride 118 H Carbon Dioxide 18 L BUN 25 H Creatinine 4.57 H* D Glucose 86 AST ALT Alkaline Phosphatase Albumin Lipase Laboratory Tests 05/15/20 05/15/20 22:35 22:35 Urine Color Yellow Urine Appearance Clear Urine pH 5.0 Ur Specific [place] 1.016 Urine Protein 1+ H Urine Glucose (UA) Negative Urine Ketones Negative Urine Blood Negative Urine Nitrite Negative Urine Bilirubin Negative Urine WBC (Auto) 1-5 Urine RBC (Auto) 0-4 U Hyaline Cast (Auto) 5-10 H U Epithel Cells (Auto) 5-10 H Urine Bacteria (Auto) Negative Ur Random Creatinine 76.6 Ur Random Sodium 97 PG Care Time/CCT Total # of Minutes Spent Total Time Spent with Patient: Total time spent is greater than 50% in coordination of care (as documented) at patient's floor/unit and/or counseling patient: Coding Level of Care Code 51154 Subseq Hosp Care Lvl 3 Diagnoses Acute kidney injury superimposed on CKD N17.9; N18.9 Chronic kidney disease N18.9 Hyperkalemia E87.5 Metabolic acidosis E87.2 Retroperitoneal bleed R58 Multiple myeloma C90.00
[2020-05-17] MEDS: NORMOSOL-R 1,000 ML IV SCH ×2 (09:52→22:28)
[2020-05-17 10:10] LABS: Appearance Urine Cloudy (Clear); Bilirubin Urine Negative (Negative); Blood Urine 2+ (Negative); Color Urine Yellow; Epithelial Cell Urine Auto >30 /lpf (0-5); Glucose Urine UA Negative (Negative); Ketones Urine Negative (Negative); Leukocyte Esterase Urine 1+ (Negative); Nitrite Urine Negative (Negative); Protein Urine 1+ (Negative); Specific Gravity Urine 1.018 (1.000-1.030); Urobilinogen Urine Negative (Negative)
[2020-05-17 10:47] LABS: Bacteria Urine Automated 1+ (Negative)
[2020-05-17] MEDS: DOXEPIN HCL 50 MG CAPSULE PO SCH (20:28)
[2020-05-17] MEDS: MIRTAZAPINE TAB 15 MG TAB PO SCH (20:29)
--- NOTE | 2020-05-17 23:01 | Hospitalist Progress Note ---
Date of Service May 17, 2020 Assessment & Plan (1) Acute kidney injury superimposed on CKD: Patient is a 65 year old medically complex male with PMHx CKD, HTN, Multiple Myeloma, Paroxysmal Atrial Fibrillation, Retroperitoneal bleed, Legionella pneumonia, [place] that presented due to one day history of fatigue, fever, chills, and found to have hyperkalemia and CHLOÉ on admission. CHLOÉ on CKD -Baseline creatinine ~2-2.5 -Creatinine 5.2 on admission- improved to 3.9 from 4.5 t will continue IVF. -appreciate input from nephro -Friedman catheter placed for strict I/O ?Pneumonia -Cefuroxime started 1 day ago for supposed PNA, though patient stating he felt well and was having no difficulties breathing. -Will hold Cefuroxime as patient is on empiric Ceftriaxone as above -CTA noting a possible pneumonia in the LLL, though clear on lung exam. Constipation -Will schedule for daily Miralax 2 packets -Significant amount of stool noted on CT scan Hyperkalemia -Patient with presenting K 5.7 -improved to 4.5 Neuropathy -Continue home gabapentin GERD -Continue home Pantoprazole Anxiety -continue home Mirtazapine -Continue home Doxepin Allergic Rhinitis -Continue home Flonase -Continue home Zyrtec (2) Paroxysmal atrial fibrillation: -Does not appear to currently be in A fib -Continue home Amiodarone -Continue home Metoprolol -Not on anticoagulation at this time, likely due to hx and presence of retroperitoneal hematoma (3) Essential hypertension: (4) Multiple myeloma: -Will continue home Acyclovir for prophylaxis Dispo: Med/Surg Telemetry FEN: Low K diet, NSS 100ml/hr DVT: SCD Code: Full (5) Neuropathy: (6) Retroperitoneal bleed: -Noted to have decreased in size on CT to roughly 10mm Admission and Anticipated Discharge Date Admission Date: May 15, 2020 Subjective Patient denies any new symptoms. Review of Systems Review of Systems: All systems reviewed & are unremarkable except as noted in HPI & below Physical Exam Physical Exam: Constitutional: well developed, well nourished and cooperative; no acute distress and not combative Eyes: PERRL, conjunctivae normal, anicteric sclerae ENMT: external ear and nose normal, oropharynx normal Neck: trachea midline, no thyromegaly Respiratory: normal respiratory effort, lungs clear to auscultation Cardiovascular: Rate/Rhythm: regular rate and regular rhythm Gastrointestinal (Abdomen): normal bowel sounds, soft, nontender, no hepatosplenomegaly Musculoskeletal: Head/Neck/Chest: normocephalic and head atraumatic Results & Data Results & Data ([facility]) Vital Signs (Past 12 Hours) Vital Signs Temp Pulse Pulse Resp BP Pulse Ox 05/17/20 20:05 37.2 C 82 18 103/64 99 05/17/20 19:51 37.2 C 05/17/20 14:55 79 05/17/20 14:47 36.4 C L 77 16 93/58 L 99 05/17/20 12:08 36.5 C 80 18 122/75 95 PG Care Time/CCT Total # of Minutes Spent Total Time Spent with Patient: Total time spent is greater than 50% in coordination of care (as documented) at patient's floor/unit and/or counseling patient: Coding Level of Care Code 09562 Subseq Hosp Care Lvl 2 Diagnoses Acute kidney injury superimposed on CKD N17.9; N18.9 Paroxysmal atrial fibrillation I48.0 Essential hypertension I10 Multiple myeloma C90.00 Neuropathy G62.9 Retroperitoneal bleed R58 Time Spent (min) 25
[2020-05-18] MEDS: METOPROLOL TARTRATE 50 MG TAB PO SCH ×3 (07:59→20:16)
[2020-05-18] MEDS: POLYETHYLENE (MIRALAX) 17 GM PACK PO SCH (07:59)
[2020-05-18] MEDS: SUCRALFATE 1 GM TAB PO SCH ×4 (07:59→20:17)
[2020-05-18] MEDS: ASPIRIN 81 MG ECTAB PO SCH (07:59)
[2020-05-18] MEDS: AMIODARONE 200 MG TAB PO SCH (07:59)
[2020-05-18] MEDS: GABAPENTIN 300 MG CAP PO SCH ×3 (08:00→20:16)
[2020-05-18] MEDS: FLUTICASONE PROPIONATE NA SPR 16 GM BTL SCH (08:00)
[2020-05-18] MEDS: FAMOTIDINE 20 MG TAB PO SCH (08:00)
[2020-05-18] MEDS: PANTOprazole 40 MG TAB PO SCH ×2 (08:00→20:18)
[2020-05-18] MEDS: ACYCLOVIR 400 MG TAB PO SCH ×2 (08:00→20:17)
[2020-05-18 08:04] LABS: Hematocrit (blood only) 23.5 % (42-52); Hemoglobin 7.9 g/dL (14.0-18.0); Mean Corpuscular Hemoglobin 32.5 pg (25-34); Mean Corpuscular Hgb Conc 33.6 g/dL (32-36); Mean Corpuscular Volume 96.7 fL (80-100); RDW Coefficient of Variation 19.2 % (11.5-14.5); RDW Standard Deviation 66.8 fL (36.4-46.3); Red Blood Count 2.43 M/uL (4.7-6.1); White Blood Count 2.92 K/uL (4.8-10.8)
[2020-05-18 08:26] LABS: Mean Platelet Volume 10.7 fL (7.4-10.4); Platelet Count 85 K/uL (130-400); Platelet Estimate Decreased (Normal)
[2020-05-18 08:29] LABS: BUN Creatinine Ratio 4.7 (10-20); Calcium 8.8 mg/dl (8.5-10.1); Creatinine Clr Calc Pharmacy 24.2 ml/min; Est GFR (African American) 20.3; Est GFR (Non-African American) 17.5; Potassium 4.3 mmol/L (3.5-5.1)
--- NOTE | 2020-05-18 10:36 | Nephrology Progress Note ---
Date of Service May 18, 2020 Assessment & Plan (1) Acute kidney injury superimposed on CKD: * CHLOÉ due to dehydration in the setting of JAVON inhibitor therapy. Patient is now in the recovery phase. He is nonoliguric and creatinine is trending down * UA +1 protein, microscopy acellular, +hyaline casts * CT demonstrated kidneys to be unobstructed * Continue to hold JAVON inhibitor * Continue IV hydration * Will remove azar catheter (2) Chronic kidney disease: * Baseline Cr 2.0 (3) Retroperitoneal bleed: * Resolving per imaging, CT reviewed (4) Multiple myeloma: * s/p ABMT x2 Admission and Anticipated Discharge Date Admission Date: May 15, 2020 Subjective Mr. Collins was seen & examined in his hospital room this morning. He reports that he is tolerating IV hydration without dyspnea or progressive edema. He complains of discomfort related to his azar catheter. He believes that he can use a bedside urinal. Review of Systems Constitutional: + weakness; no fever Eyes: no problem reported Ear, Nose, Mouth, Throat: no problem reported Respiratory: no cough and no dyspnea Cardiovascular: no chest pain, no palpitations and no edema Gastrointestinal: no abdominal pain and no diarrhea/loose stools Musculoskeletal: no back pain Integumentary: no rash Neurologic: no dizziness Physical Exam Constitutional: no acute distress Eyes: PERRL, conjunctivae normal, anicteric sclerae ENMT: external ear and nose normal, oropharynx normal Neck: trachea midline, no thyromegaly Respiratory: normal respiratory effort, lungs clear to auscultation Cardiovascular: RRR, no murmur, no edema Gastrointestinal (Abdomen): normal bowel sounds, soft, nontender, no hepatosplenomegaly Musculoskeletal: Extremities: no cyanosis Skin: no rashes, warm and dry Neurologic: awake; not confused Results & Data ([facility]) Vital Signs (Past 12 Hours) Vital Signs Temp Pulse Pulse Resp BP BP Pulse Ox 05/18/20 07:37 86 05/18/20 07:12 36.9 C 79 16 100/60 93 05/18/20 03:05 36.8 C 75 17 91/60 L 95 05/18/20 00:35 77 05/17/20 23:38 37.0 C 75 17 91/58 L 95 Laboratory Tests 05/18/20 05/18/20 07:22 07:22 WBC 2.92 L Hgb 7.9 L Hct 23.5 L Plt Count 85 L Sodium 143 Potassium 4.3 Chloride 112 H Carbon Dioxide 26 BUN 16 Creatinine 3.50 H D Glucose 85 Calcium 8.8 PG Care Time/CCT Total # of Minutes Spent Total Time Spent with Patient: Total time spent is greater than 50% in coordination of care (as documented) at patient's floor/unit and/or counseling patient: Coding Level of Care Code 76000 Subseq Hosp Care Lvl 3 Diagnoses Acute kidney injury superimposed on CKD N17.9; N18.9 Chronic kidney disease N18.9 Retroperitoneal bleed R58 Multiple myeloma C90.00
[2020-05-18] MEDS: MIRTAZAPINE TAB 15 MG TAB PO SCH (20:18)
[2020-05-18] MEDS: DOXEPIN HCL 50 MG CAPSULE PO SCH (20:19)
--- NOTE | 2020-05-18 21:51 | Hospitalist Progress Note ---
Date of Service May 18, 2020 Assessment & Plan (1) Acute kidney injury superimposed on CKD: Patient is a 65 year old medically complex male with PMHx CKD, HTN, Multiple Myeloma, Paroxysmal Atrial Fibrillation, Retroperitoneal bleed, Legionella pneumonia, [place] that presented due to one day history of fatigue, fever, chills, and found to have hyperkalemia and CHLOÉ on admission. CHLOÉ on CKD -Baseline creatinine ~2-2.5 -Creatinine 5.2 on admission- improved to 3.5 from 3.9. will continue IVF. -appreciate input from nephro -Friedman catheter placed for strict I/O ?Pneumonia -Cefuroxime started 1 day ago for supposed PNA, though patient stating he felt well and was having no difficulties breathing. -Will hold Cefuroxime as patient is on empiric Ceftriaxone as above -CTA noting a possible pneumonia in the LLL, though clear on lung exam. Constipation -Will schedule for daily Miralax 2 packets -Significant amount of stool noted on CT scan Hyperkalemia -Patient with presenting K 5.7 -resolved Neuropathy -Continue home gabapentin GERD -Continue home Pantoprazole Anxiety -continue home Mirtazapine -Continue home Doxepin Allergic Rhinitis -Continue home Flonase -Continue home Zyrtec (2) Paroxysmal atrial fibrillation: -Does not appear to currently be in A fib -Continue home Amiodarone -Continue home Metoprolol -Not on anticoagulation at this time, likely due to hx and presence of retroperitoneal hematoma (3) Essential hypertension: BP is at goal. (4) Multiple myeloma: -Will continue home Acyclovir for prophylaxis Dispo: Med/Surg Telemetry FEN: Low K diet, NSS 100ml/hr DVT: SCD Code: Full Plan is to discharge if labs continue to improve. (5) Neuropathy: (6) Retroperitoneal bleed: -Noted to have decreased in size on CT to roughly 10mm Admission and Anticipated Discharge Date Admission Date: May 15, 2020 Subjective 65 yo male reports feeling well. He has no new complaints. Review of Systems Review of Systems: All systems reviewed & are unremarkable except as noted in HPI & below Physical Exam Physical Exam: Constitutional: well developed, well nourished and cooperative; no acute distress and not combative Eyes: PERRL, conjunctivae normal, anicteric sclerae ENMT: external ear and nose normal, oropharynx normal Neck: trachea midline, no thyromegaly Respiratory: normal respiratory effort, lungs clear to auscultation Cardiovascular: Rate/Rhythm: regular rate and regular rhythm Gastrointestinal (Abdomen): normal bowel sounds, soft, nontender, no hepatosplenomegaly Musculoskeletal: Head/Neck/Chest: normocephalic and head atraumatic Results & Data Results & Data ([facility]) Vital Signs (Past 12 Hours) Vital Signs Temp Pulse Pulse Pulse Resp BP Pulse Ox 05/18/20 19:13 37 C 85 18 98/62 L 95 05/18/20 15:21 82 05/18/20 15:03 36.7 C 80 16 93/59 L 100 05/18/20 11:02 36.8 C 84 16 101/64 99 PG Care Time/CCT Total # of Minutes Spent Total Time Spent with Patient: Total time spent is greater than 50% in coordination of care (as documented) at patient's floor/unit and/or counseling patient: Coding Level of Care Code 66357 Subseq Hosp Care Lvl 2 Diagnoses Acute kidney injury superimposed on CKD N17.9; N18.9 Paroxysmal atrial fibrillation I48.0 Essential hypertension I10 Multiple myeloma C90.00 Neuropathy G62.9 Retroperitoneal bleed R58 Time Spent (min) 25
[2020-05-19 06:26] LABS: Hematocrit (blood only) 21.4 % (42-52); Hemoglobin 7.2 g/dL (14.0-18.0); Mean Corpuscular Hemoglobin 32.3 pg (25-34); Mean Corpuscular Hgb Conc 33.6 g/dL (32-36); RDW Coefficient of Variation 19.1 % (11.5-14.5); RDW Standard Deviation 65.3 fL (36.4-46.3); Red Blood Count 2.23 M/uL (4.7-6.1); White Blood Count 2.92 K/uL (4.8-10.8)
[2020-05-19 06:29] LABS: Mean Platelet Volume 9.2 fL (7.4-10.4); Platelet Count 85 K/uL (130-400)
[2020-05-19 07:02] LABS: Platelet Estimate Decreased (Normal)
[2020-05-19 07:10] LABS: BUN Creatinine Ratio 3.9 (10-20); Calcium 8.4 mg/dl (8.5-10.1); Creatinine Clr Calc Pharmacy 27.3 ml/min; Est GFR (African American) 23.6; Est GFR (Non-African American) 20.4; Potassium 3.8 mmol/L (3.5-5.1)
[2020-05-19] MEDS: FAMOTIDINE 20 MG TAB PO SCH (07:26)
[2020-05-19] MEDS: METOPROLOL TARTRATE 50 MG TAB PO SCH ×3 (07:26→21:00)
[2020-05-19] MEDS: SUCRALFATE 1 GM TAB PO SCH ×4 (07:26→21:04)
[2020-05-19] MEDS: GABAPENTIN 300 MG CAP PO SCH ×3 (07:27→21:01)
[2020-05-19] MEDS: ASPIRIN 81 MG ECTAB PO SCH (07:27)
[2020-05-19] MEDS: FLUTICASONE PROPIONATE NA SPR 16 GM BTL SCH (07:27)
[2020-05-19] MEDS: AMIODARONE 200 MG TAB PO SCH (07:27)
[2020-05-19] MEDS: PANTOprazole 40 MG TAB PO SCH ×2 (07:28→21:01)
[2020-05-19] MEDS: POLYETHYLENE (MIRALAX) 17 GM PACK PO SCH (07:28)
[2020-05-19] MEDS: ACYCLOVIR 400 MG TAB PO SCH ×2 (08:33→21:03)
--- NOTE | 2020-05-19 09:30 | Hospitalist Progress Note ---
Date of Service May 19, 2020 Assessment & Plan (1) Acute kidney injury superimposed on CKD: Patient is a 65 year old medically complex male with PMHx CKD, HTN, Multiple Myeloma, Paroxysmal Atrial Fibrillation, Retroperitoneal bleed, Legionella pneumonia, [place] that presented due to one day history of fatigue, fever, chills, and found to have hyperkalemia and CHLOÉ on admission. CHLOÉ on CKD -Baseline creatinine ~2-2.5 -Creatinine 5.2 on admission- improved to 3 from 3.5. -appreciate input from nephro -Friedman catheter placed for strict I/O; will remove. ?Pneumonia -Cefuroxime started 1 day ago for supposed PNA, though patient stating he felt well and was having no difficulties breathing. -Will hold Cefuroxime as patient is on empiric Ceftriaxone as above -completed 5 days of antibiotics. stopped. -CTA noting a possible pneumonia in the LLL, though clear on lung exam. Constipation -Will schedule for daily Miralax 2 packets -Significant amount of stool noted on CT scan Hyperkalemia -Patient with presenting K 5.7 -resolved Neuropathy -Continue home gabapentin GERD -Continue home Pantoprazole Anxiety -continue home Mirtazapine -Continue home Doxepin Allergic Rhinitis -Continue home Flonase -Continue home Zyrtec (2) Paroxysmal atrial fibrillation: -Does not appear to currently be in A fib -Continue home Amiodarone -Continue home Metoprolol -Not on anticoagulation at this time, likely due to hx and presence of retroperitoneal hematoma (3) Essential hypertension: BP is at goal. (4) Neuropathy: (5) Pancytopenia: repeated CT scan on 05/19 No signs of bleeding. iron studies rule out iron def. anemia will continue to monitor and transfuse if below 7. (6) Retroperitoneal bleed: -Noted to have decreased in size on CT to roughly 10mm (7) Multiple myeloma: -Will continue home Acyclovir for prophylaxis Dispo: Med/Surg Telemetry FEN: Low K diet, NSS 100ml/hr DVT: SCD Code: Full Plan is to discharge if labs continue to improve. Admission and Anticipated Discharge Date Admission Date: May 15, 2020 Subjective Patient reports feeling well. No melena or blood in stool. Review of Systems Review of Systems: All systems reviewed & are unremarkable except as noted in HPI & below Physical Exam Physical Exam: Constitutional: well developed, well nourished and cooperative; no acute distress and not combative Eyes: PERRL, conjunctivae normal, anicteric sclerae ENMT: external ear and nose normal, oropharynx normal Neck: trachea midline, no thyromegaly Respiratory: normal respiratory effort, lungs clear to auscultation Cardiovascular: Rate/Rhythm: regular rate and regular rhythm Gastrointestinal (Abdomen): normal bowel sounds, soft, nontender, no hepatosplenomegaly Musculoskeletal: Head/Neck/Chest: normocephalic and head atraumatic Results & Data Results & Data ([facility]) Vital Signs (Past 12 Hours) Vital Signs Temp Pulse Pulse Pulse Resp BP Pulse Ox 05/19/20 07:00 36.8 C 91 H 18 104/66 96 05/19/20 02:48 37.1 C 76 16 103/64 93 05/18/20 23:20 36.6 C 93 H 16 101/64 92 05/18/20 22:49 92 H PG Care Time/CCT Total # of Minutes Spent Total Time Spent with Patient: Total time spent is greater than 50% in coordination of care (as documented) at patient's floor/unit and/or counseling patient: Coding Level of Care Code 56449 Subseq Hosp Care Lvl 3 Diagnoses Acute kidney injury superimposed on CKD N17.9; N18.9 Paroxysmal atrial fibrillation I48.0 Essential hypertension I10 Neuropathy G62.9 Pancytopenia D61.818 Retroperitoneal bleed R58 Multiple myeloma C90.00 Time Spent (min) 35
--- NOTE | 2020-05-19 10:26 | Nephrology Progress Note ---
Date of Service May 19, 2020 Assessment & Plan (1) Acute kidney injury superimposed on CKD: * CHLOÉ due to dehydration in the setting of JAVON inhibitor therapy. Patient is now in the recovery phase. He is nonoliguric and creatinine is trending down * UA +1 protein, microscopy acellular, +hyaline casts * CT demonstrated kidneys to be unobstructed * Continue to hold JAVON inhibitor * Stop IVF. Encourage oral hydration * Monitor PRP (2) Chronic kidney disease: * Baseline Cr 2.0 (3) Anemia: * Hgb trending down * Will order iron studies (4) Retroperitoneal bleed: * Resolving per imaging, CT reviewed (5) Multiple myeloma: * s/p ABMT x2 Admission and Anticipated Discharge Date Admission Date: May 15, 2020 Subjective Mr. Collins was seen & examined in his hospital room this morning. He reports f atigue and nausea. Friedman catheter was removed yesterday. Mr. Collins is voiding without difficulty Review of Systems Constitutional: + weakness; no fever Eyes: no problem reported Ear, Nose, Mouth, Throat: no problem reported Respiratory: no cough and no dyspnea Cardiovascular: no chest pain, no palpitations and no edema Gastrointestinal: no abdominal pain and no diarrhea/loose stools Musculoskeletal: no back pain Integumentary: no rash Neurologic: no dizziness Physical Exam Constitutional: no acute distress Eyes: PERRL, conjunctivae normal, anicteric sclerae ENMT: external ear and nose normal, oropharynx normal Neck: trachea midline, no thyromegaly Respiratory: normal respiratory effort, lungs clear to auscultation Cardiovascular: RRR, no murmur, no edema Gastrointestinal (Abdomen): normal bowel sounds, soft, nontender, no hepatosplenomegaly Musculoskeletal: Extremities: no cyanosis Skin: no rashes, warm and dry Neurologic: awake; not confused Results & Data ([facility]) Vital Signs (Past 12 Hours) Vital Signs Temp Pulse Pulse Pulse Resp BP Pulse Ox 05/19/20 07:00 36.8 C 91 H 18 104/66 96 05/19/20 02:48 37.1 C 76 16 103/64 93 05/18/20 23:20 36.6 C 93 H 16 101/64 92 05/18/20 22:49 92 H Laboratory Tests 05/19/20 05/19/20 06:05 06:05 WBC 2.92 L Hgb 7.2 L Hct 21.4 L Plt Count 85 L Sodium 141 Potassium 3.8 Chloride 110 H Carbon Dioxide 27 BUN 12 Creatinine 3.09 H D Glucose 87 PG Care Time/CCT Total # of Minutes Spent Total Time Spent with Patient: Total time spent is greater than 50% in coordination of care (as documented) at patient's floor/unit and/or counseling patient: Coding Level of Care Code 54150 Subseq Hosp Care Lvl 3 Diagnoses Acute kidney injury superimposed on CKD N17.9; N18.9 Chronic kidney disease N18.9 Anemia D64.9 Retroperitoneal bleed R58 Multiple myeloma C90.00
[2020-05-19 11:05] LABS: Ferritin 1118.7 ng/ml (8-388)
--- NOTE | 2020-05-19 11:38 | CT Scan Report ---
ABDOMEN AND PELVIS CT WITHOUT CONTRAST CT DOSE: 523.74 mGy.cm HISTORY: Follow-up study in a patient with resolving retroperitoneal hematoma, retroperitoneal bleed/ worse hemoglobin TECHNIQUE: Multiaxial CT images of the abdomen and pelvis were performed without contrast. A dose lo wering technique was utilized adhering to the principles of ALARA. COMPARISON STUDY: CT abdomen and pelvis 05/15/2020. FINDINGS: Interval development of small right greater than left pleural effusions. Mild patchy subple ural bibasilar groundglass opacities are redemonstrated. Indeterminate unchanged 1.3 x 0.6 cm subpleu ral nodule adjacent to the right lung base on image 47 series 3. The imaged inferior cardiac chambers are unremarkable. There is no pneumatosis or pneumoperitoneum. The unenhanced spleen, moderately atrophic pancreas, and adrenal glands are unremarkable. Cholelithia sis. Partially contracted gallbladder. Unenhanced liver is unremarkable. Probable cyst of the left he patic lobe, 4 mm. Mild nonspecific bilateral perinephric stranding. No renal or ureteral calculi or obstructive uropath y. Probable cyst of the interpolar right kidney, 10 mm. Mild urinary bladder distention. Unremarkable prostate. Mild calcified plaque of the abdominal aorta. No adenopathy. Stable to slightly decreased size of the small right-sided retroperitoneal hematoma, with largest component measuring up to approx imately 7 mm in AP dimension. Trace hemorrhage is again noted within the perinephric space tracking a long the right paracolic gutter. There is no bowel obstruction or bowel wall thickening. Noninflamed appendix. Small fat-filled perium bilical hernia. Numerous lytic lesions are again noted throughout the imaged osseous structures. Ther e are numerous chronic and subacute appearing likely pathologic bilateral rib fractures which are non displaced. T11 compression deformity, unchanged. IMPRESSION: 1. Stable to slightly decreased size of the tiny right-sided subacute retroperitoneal hematoma. 2. Interval development of small right greater than left pleural effusions. Persistent subpleural pat bhartai groundglass opacities are suspicious for an infectious or inflammatory pneumonitis. 3. No bowel obstruction or bowel wall thickening. 4. Cholelithiasis. 5. Numerous lytic skeletal lesions redemonstrated compatible with patient's clinical diagnosis of mul tiple myeloma again with numerous nondisplaced subacute to chronic appearing bilateral rib fractures. ACT 112: Negative or not required by law. The above report was generated using voice recognition software. It may contain grammatical, syntax o r spelling errors. Dictated: 05/19/2020 10:38 AM Transcribed: 05/19/2020 11:04 AM Denise [id number] [email or web address] Electronically signed by: Mike Cullen M.D. 05/19/2020 11:37 AM
[2020-05-19] MEDS: MIRTAZAPINE TAB 15 MG TAB PO SCH (21:01)
[2020-05-19] MEDS: DOXEPIN HCL 50 MG CAPSULE PO SCH (21:02)
[2020-05-20 06:06] LABS: Hematocrit (blood only) 23.1 % (42-52); Mean Corpuscular Hemoglobin 33.2 pg (25-34); Mean Corpuscular Hgb Conc 34.6 g/dL (32-36); Mean Corpuscular Volume 95.9 fL (80-100); RDW Coefficient of Variation 18.7 % (11.5-14.5); RDW Standard Deviation 64.1 fL (36.4-46.3); Red Blood Count 2.41 M/uL (4.7-6.1); White Blood Count 2.65 K/uL (4.8-10.8)
[2020-05-20 06:14] LABS: Mean Platelet Volume 9.2 fL (7.4-10.4); Platelet Count 75 K/uL (130-400)
[2020-05-20 06:36] LABS: BUN Creatinine Ratio 3.1 (10-20); Calcium 8.3 mg/dl (8.5-10.1); Est GFR (African American) 26.7; Est GFR (Non-African American) 23.1; Potassium 3.6 mmol/L (3.5-5.1)
[2020-05-20 06:55] LABS: Folate (Folic Acid) 9.6 ng/ml (>5.38)
[2020-05-20] MEDS: SUCRALFATE 1 GM TAB PO SCH ×4 (07:55→21:14)
[2020-05-20] MEDS: ASPIRIN 81 MG ECTAB PO SCH (07:56)
[2020-05-20] MEDS: AMIODARONE 200 MG TAB PO SCH (07:56)
[2020-05-20] MEDS: GABAPENTIN 300 MG CAP PO SCH ×3 (07:56→21:15)
[2020-05-20] MEDS: FAMOTIDINE 20 MG TAB PO SCH (07:56)
[2020-05-20] MEDS: ACYCLOVIR 400 MG TAB PO SCH ×2 (07:56→21:15)
[2020-05-20] MEDS: PANTOprazole 40 MG TAB PO SCH ×2 (07:56→21:14)
[2020-05-20] MEDS: FLUTICASONE PROPIONATE NA SPR 16 GM BTL SCH (07:57)
[2020-05-20] MEDS: POLYETHYLENE (MIRALAX) 17 GM PACK PO SCH (07:57)
[2020-05-20] MEDS: METOPROLOL TARTRATE 50 MG TAB PO SCH ×3 (07:57→21:14)
--- NOTE | 2020-05-20 10:53 | Nephrology Progress Note ---
Date of Service May 20, 2020 Assessment & Plan (1) Acute kidney injury superimposed on CKD: * CHLOÉ due to dehydration in the setting of JAVON inhibitor therapy. Patient is now in the recovery phase. He is nonoliguric and creatinine is trending down (Cr 5.2 --> 2.79) * UA +1 protein, microscopy acellular, +hyaline casts * CT demonstrated kidneys to be unobstructed * Continue to hold JAVON inhibitor. BP remains relatively low. Consider resuming low dose JAVON inhibitor for sustained increase in SBP to > 140 mmHg * Encourage oral hydration * Monitor PRP * No further Nephrology evaluation indicated at this time. Will sign off. Please call if further assistance is needed (2) Chronic kidney disease: * Baseline Cr 2.0 (3) Anemia: * Hgb 8.0 today * Iron saturation 48%. No indication for IV iron (4) Retroperitoneal bleed: * Resolving per imaging, CT reviewed (5) Multiple myeloma: * s/p ABMT x2 Admission and Anticipated Discharge Date Admission Date: May 15, 2020 Subjective Mr. Collins was seen & examined in his hospital room this morning. He is voiding without difficulty. His only complaint is nausea and emesis 30 min after breakfast for the last two days Review of Systems Constitutional: + weakness; no fever Eyes: no problem reported Ear, Nose, Mouth, Throat: no problem reported Respiratory: no cough and no dyspnea Cardiovascular: no chest pain, no palpitations and no edema Gastrointestinal: no abdominal pain and no diarrhea/loose stools Musculoskeletal: no back pain Integumentary: no rash Neurologic: no dizziness Physical Exam Constitutional: no acute distress Eyes: PERRL, conjunctivae normal, anicteric sclerae ENMT: external ear and nose normal, oropharynx normal Neck: trachea midline, no thyromegaly Respiratory: normal respiratory effort, lungs clear to auscultation Cardiovascular: RRR, no murmur, no edema Gastrointestinal (Abdomen): normal bowel sounds, soft, nontender, no hepatosplenomegaly Musculoskeletal: Extremities: no cyanosis Skin: no rashes, warm and dry Neurologic: awake; not confused Results & Data ([facility]) Vital Signs (Past 12 Hours) Vital Signs Temp Pulse Resp BP Pulse Ox 05/20/20 06:59 36.5 C 74 19 95/57 L 95 05/20/20 03:23 36.3 C L 79 20 96/60 L 96 01/11/21 23:21 36.6 C 76 18 98/62 L 96 Laboratory Tests 05/20/20 05/20/20 05:36 05:36 WBC 2.65 L Hgb 8.0 L Hct 23.1 L Plt Count 75 L Sodium 141 Potassium 3.6 Chloride 109 H Carbon Dioxide 29 BUN 9 Creatinine 2.79 H D Glucose 86 PG Care Time/CCT Total # of Minutes Spent Total Time Spent with Patient: Total time spent is greater than 50% in coordination of care (as documented) at patient's floor/unit and/or counseling patient: Coding Level of Care Code 24203 Subseq Hosp Care Lvl 3 Diagnoses Acute kidney injury superimposed on CKD N17.9; N18.9 Chronic kidney disease N18.9 Anemia D64.9 Retroperitoneal bleed R58 Multiple myeloma C90.00
--- NOTE | 2020-05-20 16:58 | Hospitalist Progress Note ---
Date of Service May 20, 2020 Assessment & Plan (1) Acute kidney injury superimposed on CKD: Baseline creatinine ~2-2.5. - Creatinine was 5.2 on admission. Likely from ACEi and dehydration. - Cr now 2.8. - Monitor (2) Paroxysmal atrial fibrillation: Does not appear to currently be in A fib. - Continue home amiodarone - Continue home metoprolol - Not on anticoagulation at this time, likely due to hx and presence of retroperitoneal hematoma (3) Essential hypertension: BP is at goal today: 110/70. - Continue metoprolol (4) Pancytopenia: Repeated CT scan on 05/19. No signs of bleeding. Iron studies rule out iron def. anemia. - Likely due to MM (5) Retroperitoneal bleed: Noted to have decreased in size on CT a/p on 05/19 to roughly 10mm. - Monitor (6) Multiple myeloma: - Continue home gabapentin - Continue home acyclovir for prophylaxis (7) Anxiety: - Continue home Mirtazapine - Continue home Doxepin Admission and Anticipated Discharge Date Admission Date: May 15, 2020 Subjective Doing well today. Wants to go back to [facility]. Reports no fevers/chills, chest pain, shortness of breath, abdominal pain, nausea, or vomiting. Physical Exam Constitutional: WD/WN, vitals as above Eyes: EOM intact bilaterally; no conjunctival abnormality ENMT: external ear and nose normal, oropharynx normal Neck: trachea midline, no thyromegaly normal visual inspection Respiratory: normal respiratory effort, lungs clear to auscultation no respiratory distress Cardiovascular: RRR, no murmur, no edema Gastrointestinal (Abdomen): Inspection/Auscultation: abdomen normal to inspection; abdomen not distended Musculoskeletal: no cyanosis or clubbing, extremities motor strength 5/5 Skin: no rashes, warm and dry Neurologic: moves all extremities and awake Psychiatric: Orientation: alert, oriented to person and cooperative Results & Data Results & Data ([facility]) Vital Signs (Past 12 Hours) Vital Signs Temp Pulse Pulse Pulse Resp BP BP 05/20/20 16:00 90 05/20/20 15:21 36.9 C 97 H 20 110/71 05/20/20 11:32 36.6 C 83 16 99/60 L 05/20/20 06:59 36.5 C 74 19 95/57 L Pulse Ox 05/20/20 16:00 05/20/20 15:21 98 05/20/20 11:32 100 05/20/20 06:59 95 PG Care Time/CCT Total # of Minutes Spent Total Time Spent with Patient: Total time spent is greater than 50% in coordination of care (as documented) at patient's floor/unit and/or counseling patient: Coding Level of Care Code 10789 Subseq Hosp Care Lvl 2 Diagnoses Acute kidney injury superimposed on CKD N17.9; N18.9 Paroxysmal atrial fibrillation I48.0 Essential hypertension I10 Pancytopenia D61.818 Retroperitoneal bleed R58 Multiple myeloma C90.00 Anxiety F41.9
[2020-05-20] MEDS: MIRTAZAPINE TAB 15 MG TAB PO SCH (21:15)
[2020-05-20] MEDS: DOXEPIN HCL 50 MG CAPSULE PO SCH (21:16)
[2020-05-21] MEDS: GABAPENTIN 300 MG CAP PO SCH ×2 (07:50→12:49)
[2020-05-21] MEDS: AMIODARONE 200 MG TAB PO SCH (07:50)
[2020-05-21] MEDS: ASPIRIN 81 MG ECTAB PO SCH (07:50)
[2020-05-21] MEDS: PANTOprazole 40 MG TAB PO SCH (07:50)
[2020-05-21] MEDS: FLUTICASONE PROPIONATE NA SPR 16 GM BTL SCH (07:50)
[2020-05-21] MEDS: METOPROLOL TARTRATE 50 MG TAB PO SCH ×2 (07:50→12:48)
[2020-05-21] MEDS: ACYCLOVIR 400 MG TAB PO SCH (07:50)
[2020-05-21] MEDS: SUCRALFATE 1 GM TAB PO SCH ×2 (07:50→12:48)
[2020-05-21] MEDS: FAMOTIDINE 20 MG TAB PO SCH (07:51)
[2020-05-21 08:05] LABS: Hematocrit (blood only) 23.2 % (42-52); Hemoglobin 7.9 g/dL (14.0-18.0); Mean Corpuscular Hemoglobin 32.5 pg (25-34); Mean Corpuscular Hgb Conc 34.1 g/dL (32-36); Mean Corpuscular Volume 95.5 fL (80-100); RDW Coefficient of Variation 18.5 % (11.5-14.5); RDW Standard Deviation 63.7 fL (36.4-46.3); Red Blood Count 2.43 M/uL (4.7-6.1); White Blood Count 2.75 K/uL (4.8-10.8)
[2020-05-21 08:09] LABS: Mean Platelet Volume 9.1 fL (7.4-10.4); Platelet Count 88 K/uL (130-400)
[2020-05-21 08:33] LABS: BUN Creatinine Ratio 2.9 (10-20); Calcium 9.1 mg/dl (8.5-10.1); Creatinine Clr Calc Pharmacy 29.8 ml/min; Est GFR (African American) 26.6; Potassium 3.7 mmol/L (3.5-5.1)
--- NOTE | 2020-05-21 17:55 | Discharge Summary ---
Date of Service May 21, 2020 Admission HPI Per Admitting Provider Patient is a 65 year old medically complex male with PMHx CKD, HTN, Multiple Myeloma, Paroxysmal Atrial Fibrillation, Retroperitoneal bleed, Legionella pneumonia, CT that presented due to one day history of fatigue, fever, chills, and found to have hyperkalemia and CHLOÉ on admission. Patient notes that throughout the day he had been sleeping more than usual and having on and off fever and chills. He notes that overnight he had a fever and was given tylenol. He states that while he has not had any pain with urination, he only urinates 1- 2 times at most a daily. He also states that his bowel movements have been p rimarily diarrhea since February. He notes poor PO intake and only has roughly 20oz of fluid daily. Lab work completed at [facility] showed that he had a worsening CHLOÉ and potassium level and he was sent to the ED for evaluation. Currently patient notes that his only discomfort involves his knee joints where they feel sore. He otherwise states he is no longer feeling fever, chills, SOB, chest pain, abdominal pain. Med Hx: Multiple Myeloma, CKD, HTN, Afib, Retroperitoneal hematoma, Cardiac Arrest Surg Hx: Cataract surgery, RUE repair with hardware (pt unsure what exactly) Fam Hx: Grandfather and Grandmother DM2, Father DM2, Sister DM2 Social Hx: Denies tobacco or drug use. Notes 1 alcoholic beverage weekly Principal Diagnosis CHLOÉ from dehydration Discharge Exam Constitutional WD/WN, vitals as above Eyes EOM intact bilaterally; no conjunctival abnormality ENMT external ear and nose normal, oropharynx normal Neck trachea midline, no thyromegaly normal visual inspection Respiratory normal respiratory effort, lungs clear to auscultation no respiratory distress Cardiovascular RRR, no murmur, no edema Gastrointestinal (Abdomen) Inspection/Auscultation: abdomen normal to inspection; abdomen not distended Musculoskeletal no cyanosis or clubbing, extremities motor strength 5/5 Skin no rashes, warm and dry Neurologic moves all extremities and awake Psychiatric Orientation: alert, oriented to person and cooperative Discharge Data Allergies Allergy/AdvReac Type Severity Reaction Status Date / Time epinephrine Allergy Intermediate STATES Verified 05/15/20 20:40 GETS A "WARNER" levofloxacin Allergy Intermediate RASH Verified 05/15/20 20:40 Sulfa (Sulfonamide Allergy Intermediate Rash Verified 05/15/20 20:40 Antibiotics) house dust Allergy Unknown Itchy Verified 05/15/20 20:40 Eye(s) Consultations 05/15/20 21:37 ED Decision to Admit Stat Ordered Studies 05/15/20 18:47 CT abd pelvis wo con Stat 05/19/20 09:31 CT abd pelvis wo con Routine Hospital Course (1) Acute kidney injury superimposed on CKD: Baseline creatinine ~2-2.5. - Creatinine was 5.2 on admission. Likely from ACEi and dehydration. - Cr now 2.8. - Follow up with nephrology in 1-2 weeks. Hold ACEi on discharge if he is on one (though I don't see it in his MAR.) (2) Paroxysmal atrial fibrillation: Does not appear to currently be in A fib. - Continue home amiodarone - Continue home metoprolol - Not on anticoagulation at this time, likely due to hx and presence of retroperitoneal hematoma (3) Essential hypertension: BP is at goal today: 110/70. - Continue metoprolol (4) Pancytopenia: Repeated CT scan on 05/19. No signs of bleeding. Iron studies rule out iron def. anemia. - Likely due to MM (5) Retroperitoneal bleed: Noted to have decreased in size on CT a/p on 05/19 to roughly 10mm. - Monitor (6) Multiple myeloma: - Continue home gabapentin - Continue home acyclovir for prophylaxis (7) Anxiety: - Continue home Mirtazapine - Continue home Doxepin Total Time Total Time Spent Total Time Spent (In Minutes): 35 Discharge Plan Discharge Items Patient Disposition: Transfer Residential Fac Reason For Visit: CHLOÉ Discharge Diagnosis: Kidney injury Dehydration Activity: Resume your previous activity Non-emergency contact: Primary Care Provider and Poultry Packer Call non-emergency contact if: your symptoms worsen Follow-up/Referrals: Elvis Henderson DO [Physician] - (Please see Dr. Henderson or Dr. Koch in 1-2 weeks to see how you are doing.) Jeanne Ellis Decorah [Primary Care Provider] - Diet: Dialysis Renal and Heart Healthy Add Attending Provider Instructions: Mr. Collins, You were admitted to the hospital for kidney injury that we feel was due to dehydration. With some fluids and holding medications, you are doing better. Your kidney function is not quite at baseline, but nearly there. With the improvement in your kidneys, you reported having a bit more energy and feeling better. Hopefully this will continue as you continue to recover. Please follow up with Dr. Henderson, Dr. Koch, or your regular kidney doctor to be sure you are doing well in 1-2 weeks. Pending Studies at Discharge: No Stand-Alone Forms: My [facility] Skilled Items Patient informed of condition?: Yes DNR: No Discharge Level of Care: Skilled Communicable Disease: No Discharge Prognosis: Improving Lines: None Urinary Catheter: No Medications and DC Order Prescriptions: Continued multivitamin Tablet 1 tab PO DAILY RF: 0 acetaminophen [Tylenol] 325 mg Tablet 650 mg PO Q4 PRN (Reason: pain/fever) RF: 0 ipratropium-albuterol 0.5 mg-3 mg(2.5 mg base)/3 mL Solution For Nebulization 3 ml INHALATION Q4H PRN (Reason: Shortness Of Breath Or Wheezing) RF: 0 miconazole nitrate 2 % Cream 1 applic TOPICAL BID RF: 0 amiodarone 200 mg Tablet 200 mg PO DAILY RF: 0 promethazine 25 mg Suppository 25 mg WI Q6H PRN (Reason: Nausea) RF: 0 prochlorperazine maleate 5 mg tablet 5 mg PO Q8 PRN (Reason: Nausea) RF: 0 sucralfate [Carafate] 1 gram Tablet 1 g PO ACHS RF: 0 cyanocobalamin (vitamin B-12) [Vitamin B-12] 1,000 mcg Tablet 1,000 mcg PO DAILY RF: 0 acyclovir 400 mg tablet 400 mg PO BID RF: 0 aspirin 81 mg Tablet,Delayed Release (Dr/Ec) 81 mg PO DAILY RF: 0 famotidine 20 mg Tablet 20 mg PO DAILY RF: 0 sodium chloride 0.9 % Solution 0 ml IV UD RF: 0 ascorbic acid (vitamin C) [Vitamin C] 500 mg Tablet 500 mg PO DAILY RF: 0 doxepin 100 mg capsule 100 mg PO HS RF: 0 pantoprazole 40 mg tablet,delayed release (DR/EC) 40 mg PO BID RF: 0 metoprolol tartrate 50 mg tablet 50 mg PO TID RF: 0 docusate sodium 100 mg Capsule 100 mg PO DAILY PRN (Reason: Constipation) RF: 0 gabapentin 300 mg capsule 300 mg PO TID RF: 0 mirtazapine 15 mg tablet 15 mg PO HS RF: 0 loteprednol etabonate [Lotemax] 0.5 % Drops,Suspension 1 drp OPHTHALMIC (EYE) DAILY RF: 0 polyethylene glycol 3350 [Miralax] 17 gram/dose Powder 17 g PO DAILY PRN (Reason: Constipation) RF: 0 albuterol sulfate [Proventil HFA] 90 mcg/actuation Hfa Aerosol Inhaler 2 puff INHALATION Q6H PRN (Reason: Shortness Of Breath Or Wheezing) RF: 0 zinc sulfate 220 mg Capsule 220 mg PO HS RF: 0 fluticasone propionate [Flonase Allergy Relief] 50 mcg/actuation [place],Suspension 2 spray INTRANASAL DAILY RF: 0 omega-3 fatty acids Capsule 2,000 mg PO DAILY RF: 0 calcium carbonate-vitamin D3 [Calcium 600 + D(3)] 600 mg(1,500mg) -400 unit Tablet 1 tab PO DAILY RF: 0 artifi.tears(hypromellose)(PF) 0.3 % Drops 1 drp OPHTHALMIC (EYE) BID RF: 0 melatonin 5 mg Tablet 5 mg PO HS RF: 0 simethicone 80 mg Tablet 80 mg PO Q6 PRN (Reason: Nausea) RF: 0 guaifenesin [Mucinex] 600 mg Tablet Extended Release 12hr 600 mg PO BID RF: 0 Cetrizine 10 mg PO DAILY PRN (Reason: allergies) RF: 0 Tylenol Supp 650 mg WI Q6 PRN (Reason: Fever) RF: 0 Discontinued cefuroxime axetil 250 mg Tablet 250 mg PO BID RF: 0 Discharge Orders: Discharge Order (Routine); Ordered 05/21/20 Ordered By: Deacon Kevin Admission Data Admit Date/Time: 05/15/20 22:51 Attending Provider: Deacon Kevin Admit Provider: Nikolay Oneill Primary Care Provider: Jeanne Ellis Decorah Other Providers: Deacon Kevin Other Interventions: Discharge Summary Assessment (RN) Last Done: 05/21/20 13:13 Coding Level of Care Code D/C Day Management >30 mins Diagnoses Acute kidney injury superimposed on CKD N17.9; N18.9 Paroxysmal atrial fibrillation I48.0 Essential hypertension I10 Pancytopenia D61.818 Retroperitoneal bleed R58 Multiple myeloma C90.00 Anxiety F41.9
--- NOTE | 2020-05-29 16:44 | Coding Query ---
CHRONIC KIDNEY DISEASE To promote full compliance with coding requirements relating to patient care, physician participation is requested in all cases of engine builder uncertainty. Please assist us with the question(s) below: Coding Question(s): The record reflects the following clinical findings: CHRONIC KIDNEY DISEASE, STAGE UNSPECIFIED Please specify the known or suspected type by placing an "X" within the parenthesis (x). If other, please document type. Please document Staging if known: ( ) Stage I >90 Kidney damage with normal or elevated GFR. ( ) Stage II 60-89 Kidney damage with mildly decreased kidney function ( ) Stage III 30-59 Moderately decreased kidney function ( x ) Stage IV 15-29 Severely decreased kidney function ( ) Stage V <15 Renal failure (or dialysis) ( ) End Stage ( ) Unknown Thank you Yajaira JACOBS
== END 2020-05-21 14:25 | DRG 682 ==
LOC: ED 18:30 → SUATTDRO 22:51 → 2N 22:51

== ENCOUNTER 2020-06-11 16:12 | Inpatient (IN) ==
--- NOTE | 2020-06-11 16:35 | Emergency Department Note ---
History of Present Illness General Chief complaint: Abnormal Labs/Diagnostic Testing Stated complaint: ABNORMAL LABS Time Seen by Provider: 06/11/20 16:15 Source: patient Mode of arrival: EMS Limitations: no limitations History of Present Illness This patient is sent over by ambulance from Dr. Veloz's office after having a low hemoglobin and elevated creatinine. He does have a history of multiple myeloma with bone marrow transplant. He has not received any treatment for this since January when he had an antibody/biologic infusion. His hemoglobin was 7.9 on May 21 and today it was 6.4. His creatinine was 2.8 on May 21 today was 3.3. He feels mildly diffusely weak and he is currently at [facility] for rehab. Besides this he is asymptomatic. He has had no blood or melena stool. No abdominal pain or back pain. Normal urinary output no dysuria or hematuria. No Covid-like symptoms. No fever or chills. No chest pain or shortness of breath or cough. The patient says "I feel decent". Home Medications Medication Instructions Recorded Confirmed Type acetaminophen [Tylenol] 650 mg PO Q4 PRN MDD 3G 05/15/20 06/11/20 History acyclovir 400 mg PO BID 05/15/20 06/11/20 History albuterol sulfate [Proventil HFA] 2 puff INHALATION Q6H 05/15/20 06/11/20 History amiodarone 200 mg PO DAILY 05/15/20 06/11/20 History ascorbic acid (vitamin C) [Vitamin 500 mg PO DAILY 05/15/20 06/11/20 History C] aspirin 81 mg PO DAILY 05/15/20 06/11/20 History calcium carbonate-vitamin D3 1 tab PO DAILY 05/15/20 06/11/20 History [Calcium 600 + D(3)] cyanocobalamin (vitamin B-12) 1,000 mcg PO DAILY 05/15/20 06/11/20 History [Vitamin B-12] docusate sodium 100 mg PO DAILY PRN 05/15/20 06/11/20 History fluticasone propionate [Flonase 2 spray INTRANASAL DAILY 05/15/20 06/11/20 History Allergy Relief] guaifenesin [Mucinex] 600 mg PO BID 05/15/20 06/11/20 History ipratropium-albuterol 3 ml INHALATION Q4H PRN 05/15/20 06/11/20 History metoprolol tartrate 50 mg PO TID 05/15/20 06/11/20 History mirtazapine 15 mg PO HS 05/15/20 06/11/20 History multivitamin 1 tab PO DAILY 05/15/20 06/11/20 History pantoprazole 40 mg PO BID 05/15/20 06/11/20 History polyethylene glycol 3350 [Miralax] 17 g PO DAILY PRN 05/15/20 06/11/20 History prochlorperazine maleate 5 mg PO Q8 PRN 05/15/20 06/11/20 History promethazine 25 mg LA Q6H PRN 05/15/20 06/11/20 History simethicone 80 mg PO Q6 PRN 05/15/20 06/11/20 History sucralfate [Carafate] 1 g PO ACHS 05/15/20 06/11/20 History bisacodyl 10 mg rectal suppository 10 mg LA DAILY PRN 06/06/20 06/11/20 History cetirizine 5 mg tablet 5 mg PO DAILY PRN 06/06/20 06/11/20 History acetaminophen 650 mg LA Q6H PRN MDD 3G 06/11/20 06/11/20 History doxepin 100 mg capsule 25 mg PO HS cap 06/11/20 06/11/20 History gabapentin 100 mg PO TID 06/11/20 06/11/20 History omega 3-dcb-cwh-fish oil [Fish Oil 1 cap PO DAILY 06/11/20 06/11/20 History High Potency] Allergies Allergy/AdvReac Type Severity Reaction Status Date / Time epinephrine Allergy Intermediate STATES Verified 06/11/20 20:01 GETS A "WARNER" levofloxacin Allergy Intermediate RASH Verified 06/11/20 20:01 Sulfa (Sulfonamide Allergy Intermediate Rash Verified 06/11/20 20:02 Antibiotics) house dust Allergy Unknown Itchy Verified 06/11/20 20:02 Eye(s) Past Med/Surg History Medical History Acute confusion Acute dehydration Acute hypotension Acute kidney injury CKD (chronic kidney disease) HTN (hypertension) Hypomagnesemia Multiple myeloma Neuropathy BL FOOT; 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 CANCER TREATMENT Pancytopenia Paroxysmal atrial fibrillation Pneumonia Retroperitoneal bleed Rhabdomyolysis Severe sepsis Surgical History History of bone marrow biopsy History of cataract surgery BL History of colonoscopy History of incision and drainage CYST - RT GROIN History of stem cell transplant History of surgery CYST REMOVED FROM COCCYX 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; 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 Family History Family/Other Family history of diabetes mellitus Social History Smoking Status: Former smoker Second Hand Exposure: No; Do You Dip or Chew Tobacco: No; Hx Alcohol Use: No Hx Substance Use: No Preferred Language: Malaysian Communication Ability: Effective 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 Beliefs That Will Affect Care: None marital status: Single Current Living Situation: Shelter and Rehab Current Living Situation Comment: [facility] Feels Safe at Home: Yes Assistive Devices: Walker Review of Systems A total of 10 systems reviewed and were otherwise negative Physical Exam Vital Signs Vital Signs - 24 hr 06/11/20 16:23 06/11/20 16:30 06/11/20 16:53 Temperature 36.7 C Temperature Source Oral Pulse Rate 80 79 81 Pulse Rate [Apical] 80 Pulse Rate from SpO2 Sensor 79 81 Respiratory Rate 20 20 22 Respiratory Effort / Characteristics Non-Labored Spontaneous Respiratory Depth Normal Respiratory Pattern Regular Blood Pressure 112/62 101/61 Blood Pressure [Right Arm] 112/62 Blood Pressure Mean 78 74 Blood Pressure Mean [Right Arm] 78 Pulse Oximetry 100 100 100 Oxygen Delivery Method Room Air Sepsis Recent Fever Within 48 Hours No Sepsis New/Unexplained Change in Mental Status No Sepsis Action Taken by Nursing No Action Required 06/11/20 17:00 06/11/20 17:30 06/11/20 17:31 Temperature Temperature Source Pulse Rate 79 77 78 Pulse Rate [Apical] Pulse Rate from SpO2 Sensor 79 78 Respiratory Rate 17 19 20 Respiratory Effort / Characteristics Respiratory Depth Respiratory Pattern Blood Pressure 97/53 L 98/53 L Blood Pressure [Right Arm] Blood Pressure Mean 67 68 Blood Pressure Mean [Right Arm] Pulse Oximetry 98 100 100 Oxygen Delivery Method Room Air Sepsis Recent Fever Within 48 Hours Sepsis New/Unexplained Change in Mental Status Sepsis Action Taken by Nursing 06/11/20 18:00 06/11/20 18:30 06/11/20 18:31 Temperature Temperature Source Pulse Rate 75 75 78 Pulse Rate [Apical] Pulse Rate from SpO2 Sensor Respiratory Rate 20 22 21 Respiratory Effort / Characteristics Respiratory Depth Respiratory Pattern Blood Pressure 103/56 L Blood Pressure [Right Arm] Blood Pressure Mean 71 Blood Pressure Mean [Right Arm] Pulse Oximetry 99 Oxygen Delivery Method Room Air Sepsis Recent Fever Within 48 Hours Sepsis New/Unexplained Change in Mental Status Sepsis Action Taken by Nursing 06/11/20 19:00 Temperature Temperature Source Pulse Rate 78 Pulse Rate [Apical] Pulse Rate from SpO2 Sensor Respiratory Rate 22 Respiratory Effort / Characteristics Respiratory Depth Respiratory Pattern Blood Pressure 121/62 Blood Pressure [Right Arm] Blood Pressure Mean 81 Blood Pressure Mean [Right Arm] Pulse Oximetry 99 Oxygen Delivery Method Room Air Sepsis Recent Fever Within 48 Hours Sepsis New/Unexplained Change in Mental Status Sepsis Action Taken by Nursing General: Well developed well nourished not ill-appearing middle-age male who appears in no acute distress, breathing comfortably on room air. Normal speech HEENT: Normal cephalic atraumatic. Pupils are equal round and reactive to light. Extraocular movements are intact. Oropharynx is pink with moist mucous membranes. No swelling of the mouth lips or tongue. Neck: Supple with a midline trachea. No meningeal signs or stiffness, no JVD or bruits. No Stridor. Chest: Clear to auscultation bilaterally. No wheezes or rhonchi. No increased work of breathing. Heart: Regular rate and rhythm without murmurs or gallops. Abdomen: Soft nontender, nondistended without rebound guarding or rigidity. Extremities: No cyanosis clubbing or edema. No calf tenderness or assymetry Spine/Back. Non tender to palpation. No CVA tenderness Skin: Good turgor without rashes. Neurologic exam: Cranial nerves two through 12 are intact. Motor and sensation are intact and symmetrical throughout. Course Administered Medications Discontinued Medications Sodium Chloride (Nss 1000ml) 500 mls @ 999 mls/hr IV .Q31M ONE Stop: 06/11/20 18:56 Last Infusion: 06/11/20 19:11 Dose: 0 mls/hr Documented by: [id number] Admin: 06/11/20 18:33 Dose: 999 mls/hr Documented by: [id number] Medical Decision Making Differential Diagnosis Anemia, multiple myeloma recurrence, GI bleed, infection, electrolyte or metabolic abnormality, Covid Medical Records Attestation: I reviewed the patient's medical records. Home Medications Current Medication List: was personally reviewed by me Laboratory Data Attestation: I reviewed the patient's lab results. Result diagrams: 06/11/20 17:46 06/11/20 17:46 Lab Results 06/11/20 06/11/20 06/11/20 Range/Units 17:27 17:27 17:46 WBC 3.11 L (4.8-10.8) K/uL RBC 2.20 L (4.7-6.1) M/uL Hgb 7.5 L (14.0-18.0) g/dL Hct 21.6 L (42-52) % MCV 98.2 (80-100) fL MCH 34.1 H (25-34) pg MCHC 34.7 (32-36) g/dL RDW Std Deviation 71.6 H (36.4-46.3) fL RDW Coeff of Elvira 20.0 H (11.5-14.5) % Plt Count 100 L (130-400) K/uL MPV 9.1 (7.4-10.4) fL Immature Gran % (Auto) 0.3 % Neut % (Auto) 49.9 % Lymph % (Auto) 39.2 % [place] % (Auto) 7.7 % Eos % (Auto) 2.6 % Baso % (Auto) 0.3 % Neut # (Auto) 1.55 (1.4-6.5) K/uL Lymph # (Auto) 1.22 (1.2-3.4) K/uL [place] # (Auto) 0.24 (0.11-0.59) K/uL Eos # (Auto) 0.08 (0-0.5) K/uL Baso # (Auto) 0.01 (0-0.2) K/uL Immature Gran # (Auto) 0.01 (0.00-0.02) K/uL Anisocytosis Present Sodium (136-145) mmol/L Potassium (3.5-5.1) mmol/L Chloride (98-107) mmol/L Carbon Dioxide (21-32) mmol/L Anion Gap (3-11) BUN (7-18) mg/dl Creatinine (0.6-1.4) mg/dl Est Cr Clr Drug Dosing ml/min Est GFR ( Amer) Est GFR (Non-Af Amer) BUN/Creatinine Ratio (10-20) Glucose (70-99) mg/dl Calcium (8.5-10.1) mg/dl Total Bilirubin (0.2-1) mg/dl AST (15-37) U/L ALT (12-78) U/L Alkaline Phosphatase (45-117) U/L Total Protein (6.4-8.2) gm/dl Albumin (3.4-5.0) gm/dl Globulin (2.5-4.0) gm/dl Albumin/Globulin Ratio (0.9-2) TSH (0.300-4.500) uIu/ml Free T4 (0.8-1.6) ng/dl Urine Color Urine Appearance (Clear) Urine pH (4.5-7.5) Ur Specific [place] (1.000-1.030) Urine Protein (Negative) Urine Glucose (UA) (Negative) Urine Ketones (Negative) Urine Blood (Negative) Urine Nitrite (Negative) Urine Bilirubin (Negative) Urine Urobilinogen (Negative) Ur Leukocyte Esterase (Negative) Urine WBC (Auto) (0-5) /hpf Urine RBC (Auto) (0-4) /hpf U Hyaline Cast (Auto) (0-5) /lpf U Epithel Cells (Auto) (0-5) /lpf Urine Bacteria (Auto) (Negative) Ur Renal Epithelial Cell Granular Casts (0) /lpf COVID-19 Eval Order [facility] SARS-CoV-2, RNA, NAAT NEGATIVE (NEGATIVE) Blood Type Antibody Screen Crossmatch 06/11/20 06/11/20 06/11/20 Range/Units 17:46 18:18 18:30 WBC (4.8-10.8) K/uL RBC (4.7-6.1) M/uL Hgb (14.0-18.0) g/dL Hct (42-52) % MCV (80-100) fL MCH (25-34) pg MCHC (32-36) g/dL RDW Std Deviation (36.4-46.3) fL RDW Coeff of Elvira (11.5-14.5) % Plt Count (130-400) K/uL MPV (7.4-10.4) fL Immature Gran % (Auto) % Neut % (Auto) % Lymph % (Auto) % [place] % (Auto) % Eos % (Auto) % Baso % (Auto) % Neut # (Auto) (1.4-6.5) K/uL Lymph # (Auto) (1.2-3.4) K/uL [place] # (Auto) (0.11-0.59) K/uL Eos # (Auto) (0-0.5) K/uL Baso # (Auto) (0-0.2) K/uL Immature Gran # (Auto) (0.00-0.02) K/uL Anisocytosis Sodium 139 (136-145) mmol/L Potassium 3.7 (3.5-5.1) mmol/L Chloride 107 (98-107) mmol/L Carbon Dioxide 24 (21-32) mmol/L Anion Gap 8.0 (3-11) BUN 16 (7-18) mg/dl Creatinine 3.56 H (0.6-1.4) mg/dl Est Cr Clr Drug Dosing 23.2 ml/min Est GFR ( Amer) 19.9 Est GFR (Non-Af Amer) 17.2 BUN/Creatinine Ratio 4.5 L (10-20) Glucose 95 (70-99) mg/dl Calcium 9.4 (8.5-10.1) mg/dl Total Bilirubin 0.5 (0.2-1) mg/dl AST 25 (15-37) U/L ALT 20 (12-78) U/L Alkaline Phosphatase 126 H (45-117) U/L Total Protein 7.5 (6.4-8.2) gm/dl Albumin 2.4 L (3.4-5.0) gm/dl Globulin 5.1 H (2.5-4.0) gm/dl Albumin/Globulin Ratio 0.5 L (0.9-2) TSH 5.430 H (0.300-4.500) uIu/ml Free T4 0.99 (0.8-1.6) ng/dl Urine Color Dark Yellow Urine Appearance Cloudy A (Clear) Urine pH 6.0 (4.5-7.5) Ur Specific [place] 1.022 (1.000-1.030) Urine Protein 2+ H (Negative) Urine Glucose (UA) Negative (Negative) Urine Ketones Trace H (Negative) Urine Blood Negative (Negative) Urine Nitrite Negative (Negative) Urine Bilirubin Negative (Negative) Urine Urobilinogen Negative (Negative) Ur Leukocyte Esterase 1+ H (Negative) Urine WBC (Auto) 5-10 H (0-5) /hpf Urine RBC (Auto) 0-4 (0-4) /hpf U Hyaline Cast (Auto) 1-5 (0-5) /lpf U Epithel Cells (Auto) >30 H (0-5) /lpf Urine Bacteria (Auto) Negative (Negative) Ur Renal Epithelial Cell Not Reportable Granular Casts 1-5 H (0) /lpf COVID-19 Eval Order SARS-CoV-2, RNA, NAAT (NEGATIVE) Blood Type O Positive Antibody Screen NEGATIVE Crossmatch See Detail Imaging Data Attestation: I personally reviewed and interpreted this imaging study as follows: My Impression: Chest x-ray upon my interpretationno acute infiltrate, failure, pneumothorax seen. There is a small amount of atelectasis in the base mostly on the right Radiologist's Impression: XR chest 1V portable CLINICAL HISTORY: weakness COMPARISON STUDY: Chest radiograph May 15, 2020. Chest CT March 12, 2020. FINDINGS: There is no pneumothorax. Small left pleural effusion is noted. There are bibasilar opacities. Numerous skeletal lytic lesions are better depicted on prior chest CT. Old bilateral rib fractures are noted. IMPRESSION: 1. Small left pleural effusion. 2. Bibasilar opacities which may reflect consolidation or atelectasis. 3. Numerous skeletal lytic lesions consistent with known diagnosis of multiple myeloma. ECG Data Attestation: I personally reviewed and interpreted this ECG as follows: Indication: + weakness Rate (beats per minute): 76 Rhythm: + normal sinus ECG Intervals/blocks: + Normal QRS, + Normal QT and + Normal LA ECG [place]: + Normal ECG ST segments: + Normal ST segments ECG Findings: + Other (Nonspecific T waves) Comparison ECG Date: from (05/15/20) Change: no significant change MDM Narrative This patient comes in as described above. He was placed in room B9 on a school lunch monitor. He is here for treatment and evaluation and admission for a low hemoglobin and concern for recurrence of multiple myeloma versus GI blood loss. IV access was established and blood work was obtained he was typed and crossed for blood. Chest x-ray and EKG were obtained. He was reassessed frequently. His hemoglobin here came back in the mid 7 range which is more consistent with his baseline but still low. His creatinine is elevating here at 3.56. He is receiving IV fluid bolus he looks well but I do think he needs to be admitted for further evaluation. Both his oncologist and consultant intern do want him to be admitted for likely bone marrow biopsy and evaluation of his worsening anemia and worsening renal function. I have consulted with Dr. Burk, who saw him in the ER for these measures. Continuous cardiac monitoring: Order was placed in the EMR for continuous cardiac monitoring. He was noted to be in normal sinus rhythm with a rate of 79. Impression & Plan Anemia, Multiple myeloma in remission, Weakness, Renal failure Discharge Plan Visit Data Chief Complaint: Abnormal Labs/Diagnostic Testing Stated Complaint: ABNORMAL LABS ED Provider: Christopher Ji Discharge Problem: Anemia, Multiple myeloma in remission, Weakness, Renal failure Patient Disposition: Admitted As Inpatient Discharge Instructions Interventions: ED Discharge Assessment Last Done: 06/11/20 19:39 Discharge Problem: Anemia Qualifiers: Anemia type: unspecified type Qualified Code(s): D64.9 - Anemia, unspecified Renal failure Qualifiers: Renal failure chronicity: acute on chronic Acute 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 type: unspecified Chronic kidney disease stage: unspecified stage Qualified Code(s): N17.9 - Acute kidney failure, unspecified
[2020-06-11] MEDS ORDERED: SODIUM CHLORIDE 0.9% 250 ML IV PRN (16:54)
--- NOTE | 2020-06-11 17:23 | XRay Report ---
XR chest 1V portable CLINICAL HISTORY: weakness COMPARISON STUDY: Chest radiograph May 15, 2020. Chest CT March 12, 2020. FINDINGS: There is no pneumothorax. Small left pleural effusion is noted. There are bibasilar opaciti es. Numerous skeletal lytic lesions are better depicted on prior chest CT. Old bilateral rib fracture s are noted. IMPRESSION: 1. Small left pleural effusion. 2. Bibasilar opacities which may reflect consolidation or atelectasis. 3. Numerous skeletal lytic lesions consistent with known diagnosis of multiple myeloma. ACT 112: Negative or not required by law. Electronically signed by: Zack Turcios M.D. 06/11/2020 5:22 PM
[2020-06-11 17:55] LABS: Basophils # (auto) 0.01 K/uL (0-0.2); Basophils % (auto) 0.3 %; Eosinophils # (auto) 0.08 K/uL (0-0.5); Eosinophils % (auto) 2.6 %; Hematocrit (blood only) 21.6 % (42-52); Hemoglobin 7.5 g/dL (14.0-18.0); Immature Granulocytes # (auto) 0.01 K/uL (0.00-0.02); Immature Granulocytes % (auto) 0.3 %; Lymphocytes # (auto) 1.22 K/uL (1.2-3.4); Lymphocytes % (auto) 39.2 %; Mean Corpuscular Hemoglobin 34.1 pg (25-34); Mean Corpuscular Hgb Conc 34.7 g/dL (32-36); Mean Corpuscular Volume 98.2 fL (80-100); Mean Platelet Volume 9.1 fL (7.4-10.4); Monocytes # (auto) 0.24 K/uL (0.11-0.59); Monocytes % (auto) 7.7 %; Neutrophils # (auto) 1.55 K/uL (1.4-6.5); Neutrophils % (auto) 49.9 %; Platelet Count 100 K/uL (130-400); RDW Standard Deviation 71.6 fL (36.4-46.3); White Blood Count 3.11 K/uL (4.8-10.8)
[2020-06-11 18:18] LABS: Anisocytosis Present
[2020-06-11 18:21] LABS: Albumin Level 2.4 gm/dl (3.4-5.0); BUN Creatinine Ratio 4.5 (10-20); Calcium 9.4 mg/dl (8.5-10.1); Creatinine Clr Calc Pharmacy 23.2 ml/min; Est GFR (African American) 19.9; Est GFR (Non-African American) 17.2; Potassium 3.7 mmol/L (3.5-5.1)
[2020-06-11] MEDS ORDERED: SODIUM CHLORIDE 0.9% 1000ML 500 ML IV ONE (18:26)
[2020-06-11 18:32] LABS: Albumin Globulin Ratio 0.5 (0.9-2); Bilirubin,Total 0.5 mg/dl (0.2-1); Globulin 5.1 gm/dl (2.5-4.0); Thyroid Stimulating Hormone 5.43 uIu/ml (0.300-4.500); Total Protein 7.5 gm/dl (6.4-8.2)
[2020-06-11 18:44] LABS: Appearance Urine Cloudy (Clear); Bacteria Urine Automated Negative (Negative); Bilirubin Urine Negative (Negative); Blood Urine Negative (Negative); Color Urine Dark Yellow; Epithelial Cell Urine Auto >30 /lpf (0-5); Glucose Urine UA Negative (Negative); Ketones Urine Trace (Negative); Leukocyte Esterase Urine 1+ (Negative); Nitrite Urine Negative (Negative); Protein Urine 2+ (Negative); RBC Urine Automated 0-4 /hpf (0-4); Specific Gravity Urine 1.022 (1.000-1.030); Urobilinogen Urine Negative (Negative)
[2020-06-11 18:44] LABS: T4 Free Thyroxine 0.99 ng/dl (0.8-1.6)
--- NOTE | 2020-06-11 19:08 | History & Physical Report ---
Date of Service June 11, 2020 Assessment & Plan (1) Anemia: Currently patient is hemodynamically stable and asymptomatic therefore no urgent need for blood transfusion overnight -this will also allow his personal coach to perform any additional test prior to a blood transfusion. We will get basic work-up with B12, folate, iron levels, reticulocyte count, peripheral smear with labs in a.m. Discussed with the blood bank and there are units on hold in case of an emergency overnight. Hemoglobin 7.5 placed to his previous hemoglobin of 7.9 in May however with rehydration the true value may be below 7 - since it is close to his prior however will defer repeating his CT A/P for worsening retroperitoneal bleed on admission. FOB negative in Apr 18, therefore no need for GI consult at the current time pending repeat FOB. Consult hematology for possible need of bone biopsy (2) CHLOÉ (acute kidney injury): Acute on chronic. 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 Gentle IV hydration overnight although appears relatively euvolemic on exam. Consult nephrology (3) Multiple myeloma in remission: S/p autologous stem cell transplant x2 Consult hematology (4) Paroxysmal atrial fibrillation: On no anticoagulation due to retroperitoneal bleed causing PEA cardiac arrest. Continue amiodarone 200 mg p.o. daily -recommend confirming with his char conveyor tender cellar Dr. Baig whether this should have been decreased to 100 mg as previously documented on H&P in April. We will also discontinue aspirin as I am unclear whether he is supposed to be still on this per previous documentation and in the setting of current anemia. (5) Pancytopenia: Suspect secondary to myeloma. Consult hematology as above. (6) Retroperitoneal bleed: Not acute. History of such. Mostly resolved on most recent CT in May. Repeat scan deferred as above. (7) Neuropathy: Continue gabapentin 100 mg p.o. 3 times daily (8) Shoulder weakness: Suspected rotator cuff tear. PT. (9) DVT prophylaxis: SCDs. Chemical prophylaxis contraindicated. Admission and Anticipated Discharge Date Admission Date: June 11, 2020 History of Present Illness Primary Care Provider: Rhonda Angel at [facility] Kirt Collins is a 65-year-old medically complex male with multiple myeloma, history of retroperitoneal bleed, history of C. 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 Patient denies any chest pain, shortness of breath, dizziness. He has complex medical history. He was hospitalized in 2018 while on treatments for multiple myeloma for sepsis with C. difficile and right lower lobe pneumonia with atrial fibrillation requiring ICU admission. He was hospitalized here in February-Mar, 2020 after a fall caused rhabdomyolysis. That hospitalization had multiple complications with subsequent ICU admission with coag negative staph bacteremia/sepsis (suspected left lobar pneumonia versus medical), Legionella pneumonia, CHLOÉ and atrial fibrillation with RVR. While sitting on the toilet and having a bowel movement on 03/11/20 the patient had a PEA arrest with subsequent drop in hemoglobin 9.1-6.1 and diagnosed with retroperitoneal bleed on CT A/P (not present earlier in the admission). He was subsequently transferred to [facility] but did well without any surgical intervention and was extubated on 03/14 and discharged to [facility] rehabilitation on 03/22/2020. He was subsequently admitted from April 16-2019 due to generalized weakness and was initially treated for pneumonia. During this hospitalization he had acute decompensation with hypotension requiring 2 units of blood overnight. CT showed similar size retroperitoneal bleed and was suspected to have rebled at that time although also noted to have nausea and vomiting however GI consult not pursued as was stable following this. He notably had no pain with this recurrent retroperitoneal bleed. He was discharged to [facility] where he now resides. He was again readmitted on May 15-2019 due to acute 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 suspected secondary to dehydration and JAVON inhibitor. Creatinine improved from 5.2 to 2.8 with IV hydration. He was followed up in nephrology clinic today. In this clinic note it was reported his hemoglobin dropped to 6.4 and creatinine risen to 3.3 on outpatient labs on 06/10/2020. His case was discussed with Dr. Potts his oncologist and recommended inpatient admission. In the ER surprisingly his hemoglobin is now 7.5 however creatinine has further increased to 3.56. UA similar to previous with granular casts present, 2+ protein, protein/creatinine ratio pending. The patient was referred to medicine for admission and ongoing management of CHLOÉ and anemia. Allergies Allergy/AdvReac Type Severity Reaction Status Date / Time epinephrine Allergy Intermediate STATES Verified 06/11/20 20:01 GETS A "WARNER" levofloxacin Allergy Intermediate RASH Verified 06/11/20 20:01 Sulfa (Sulfonamide Allergy Intermediate Rash Verified 06/11/20 20:02 Antibiotics) house dust Allergy Unknown Itchy Verified 06/11/20 20:02 Eye(s) Home Medications Medication Instructions Recorded Confirmed Type acetaminophen [Tylenol] 650 mg PO Q4 PRN MDD 3G 05/15/20 06/11/20 History acyclovir 400 mg PO BID 05/15/20 06/11/20 History albuterol sulfate [Proventil HFA] 2 puff INHALATION Q6H 05/15/20 06/11/20 Hi story amiodarone 200 mg PO DAILY 05/15/20 06/11/20 History ascorbic acid (vitamin C) [Vitamin 500 mg PO DAILY 05/15/20 06/11/20 History C] aspirin 81 mg PO DAILY 05/15/20 06/11/20 History calcium carbonate-vitamin D3 1 tab PO DAILY 05/15/20 06/11/20 History [Calcium 600 + D(3)] cyanocobalamin (vitamin B-12) 1,000 mcg PO DAILY 05/15/20 06/11/20 History [Vitamin B-12] docusate sodium 100 mg PO DAILY PRN 05/15/20 06/11/20 History fluticasone propionate [Flonase 2 spray INTRANASAL DAILY 05/15/20 06/11/20 History Allergy Relief] guaifenesin [Mucinex] 600 mg PO BID 05/15/20 06/11/20 History ipratropium-albuterol 3 ml INHALATION Q4H PRN 05/15/20 06/11/20 History metoprolol tartrate 50 mg PO TID 05/15/20 06/11/20 History mirtazapine 15 mg PO HS 05/15/20 06/11/20 History multivitamin 1 tab PO DAILY 05/15/20 06/11/20 History pantoprazole 40 mg PO BID 05/15/20 06/11/20 History polyethylene glycol 3350 [Miralax] 17 g PO DAILY PRN 05/15/20 06/11/20 History prochlorperazine maleate 5 mg PO Q8 PRN 05/15/20 06/11/20 History promethazine 25 mg CA Q6H PRN 05/15/20 06/11/20 History simethicone 80 mg PO Q6 PRN 05/15/20 06/11/20 History sucralfate [Carafate] 1 g PO ACHS 05/15/20 06/11/20 History bisacodyl 10 mg rectal suppository 10 mg CA DAILY PRN 06/06/20 06/11/20 History cetirizine 5 mg tablet 5 mg PO DAILY PRN 06/06/20 06/11/20 History acetaminophen 650 mg CA Q6H PRN MDD 3G 06/11/20 06/11/20 History doxepin 100 mg capsule 25 mg PO HS cap 06/11/20 06/11/20 History gabapentin 100 mg PO TID 06/11/20 06/11/20 History omega 9-oup-rhk-fish oil [Fish Oil 1 cap PO DAILY 06/11/20 06/11/20 History High Potency] Past Med/Surg History Medical History Acute confusion Acute dehydration Acute hypotension Acute kidney injury CKD (chronic kidney disease) HTN (hypertension) Hypomagnesemia Multiple myeloma Neuropathy BL FOOT; 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 CANCER TREATMENT Pancytopenia Paroxysmal atrial fibrillation Pneumonia Retroperitoneal bleed Rhabdomyolysis Severe sepsis Surgical History History of bone marrow biopsy History of cataract surgery BL History of colonoscopy History of incision and drainage CYST - RT GROIN History of stem cell transplant History of surgery CYST REMOVED FROM COCCYX 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; 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 Family History Family/Other Family history of diabetes mellitus Social History Smoking Status: Former smoker Second Hand Exposure: No; Do You Dip or Chew Tobacco: No; Hx Alcohol Use: No Hx Substance Use: No Preferred Language: Mozambican Communication Ability: Effective Tubing Machine Operator Required: No Beliefs That Will Affect Care: None marital status: Single Current Living Situation[facility] Current Living Situation Comment: Rhonda Angel Feels Safe at Home: Yes Assistive Devices: Walker Review of Systems Review of Systems: All systems reviewed & are unremarkable except as noted in HPI & below Musculoskeletal: Left shoulder pain Neurologic: + generalized weakness Physical Exam Constitutional: well developed and well nourished; no acute distress Eyes: + anicteric sclerae; normal pupil size ENMT: external ear and nose normal, oropharynx normal Neck: trachea midline Respiratory: normal respiratory effort, lungs clear to auscultation Cardiovascular: RRR, no murmur, no edema Gastrointestinal (Abdomen): normal bowel sounds, soft, nontender, no hepatosplenomegaly Skin: no rashes, warm and dry Neurologic: moves all extremities and awake; not confused Psychiatric: A+Ox3, euthymic affect Results & Data Results & Data ([facility]) Vital Signs (Past 12 Hours) Vital Signs Temp Pulse Pulse Resp BP BP Pulse Ox 06/11/20 19:00 78 22 121/62 99 06/11/20 18:31 78 21 103/56 L 99 06/11/20 18:30 75 22 06/11/20 18:00 75 20 06/11/20 17:31 78 20 100 06/11/20 17:30 77 19 98/53 L 100 06/11/20 17:00 79 17 97/53 L 98 06/11/20 16:53 81 22 100 06/11/20 16:30 79 20 101/61 100 06/11/20 16:23 36.7 C 80 80 20 112/62 112/62 100 Diagnostic Findings XR chest 1V portable IMPRESSION: 1. Small left pleural effusion. 2. Bibasilar opacities which may reflect consolidation or atelectasis. 3. Numerous skeletal lytic lesions consistent with known diagnosis of multiple myeloma. Medications Administered ER medications given: NSS 500 mL bolus ECG Rate (beats per minute): 76 Rhythm: normal sinus Findings: no acute ischemic change Comparison ECG Date: from (May 15, 2020) Change: no significant change Code Status & VTE Plan Code Status Full Chari Killian - Sister, decision maker in the event patient is unable to make decisions [phone] VTE Prophylaxis Plan VTE Prophylaxis will be ordered: Yes PG Care Time/CCT Total # of Minutes Spent Total Time Spent with Patient: Total time spent is greater than 50% in coordination of care (as documented) at patient's floor/unit and/or counseling patient: Coding Level of Care Code 73436 Initial Inpt Care Lvl 3 Diagnoses Anemia D64.9 CHLOÉ (acute kidney injury) N17.9 Multiple myeloma in remission C90.01 Paroxysmal atrial fibrillation I48.0 Pancytopenia D61.818 Retroperitoneal bleed R58 Neuropathy G62.9 Shoulder weakness R29.898 DVT prophylaxis Z29.9
[2020-06-11] MEDS ORDERED: ONDANSETRON INJ 2 MG/ML 2 ML VIAL IV PRN (20:20)
[2020-06-11] MEDS ORDERED: ACETAMINOPHEN 325 MG TAB PO PRN (20:20)
[2020-06-11] MEDS ORDERED: PROMETHAZINE HCL 25 MG SUPP PR PRN (22:23)
[2020-06-11] MEDS ORDERED: ALBUT/IPRATROP 3MG/0.5MG NEB 3 ML VIAL INH PRN (22:23)
[2020-06-11] MEDS ORDERED: PROCHLORPERAZINE MALEATE 5 MG TAB PO PRN (22:23)
[2020-06-11] MEDS ORDERED: POLYETHYLENE (MIRALAX) 17 GM PACK PO PRN (22:23)
[2020-06-11] MEDS ORDERED: ALBUTEROL HFA 8 GM INHALER INH PRN (22:23)
[2020-06-11] MEDS ORDERED: SIMETHICONE 80 MG CHEW PO PRN (22:28)
[2020-06-11] MEDS: ACYCLOVIR 400 MG TAB PO SCH (23:28)
[2020-06-11] MEDS: PANTOprazole 40 MG TAB PO SCH (23:28)
[2020-06-11] MEDS: SODIUM CHLORIDE 0.9% 1000ML 1,000 ML IV SCH (23:29)
[2020-06-12 02:08] LABS: Protein Creatinine Ratio Urine 1.7 (0-0.2); Total Protein Urine Random 236.5 mg/dl (0-11.9)
[2020-06-12] MEDS: SUCRALFATE 1 GM TAB PO SCH ×4 (06:42→20:55)
[2020-06-12 07:11] LABS: Anisocytosis Present; Eosinophils # (auto) 0.07 K/uL (0-0.5); Eosinophils % (auto) 2.7 %; Hematocrit (blood only) 19.3 % (42-52); Hemoglobin 6.7 g/dL (14.0-18.0); Immature Granulocytes # (auto) 0.02 K/uL (0.00-0.02); Immature Granulocytes % (auto) 0.8 %; Lymphocytes # (auto) 1.12 K/uL (1.2-3.4); Lymphocytes % (auto) 42.9 %; Mean Corpuscular Hemoglobin 34.2 pg (25-34); Mean Corpuscular Hgb Conc 34.7 g/dL (32-36); Mean Corpuscular Volume 98.5 fL (80-100); Mean Platelet Volume 9.8 fL (7.4-10.4); Monocytes # (auto) 0.22 K/uL (0.11-0.59); Monocytes % (auto) 8.4 %; Neutrophils # (auto) 1.18 K/uL (1.4-6.5); Neutrophils % (auto) 45.2 %; Platelet Count 94 K/uL (130-400); Platelet Estimate Decreased (Normal); RDW Coefficient of Variation 19.9 % (11.5-14.5); RDW Standard Deviation 70.8 fL (36.4-46.3); Red Blood Count 1.96 M/uL (4.7-6.1); Reticulocyte % 2.3 % (0.5-2.0); Reticulocytes # 0.04 10^6/uL (0.02-0.10); White Blood Count 2.61 K/uL (4.8-10.8)
[2020-06-12] MEDS: guaiFENesin 600 MG TABCR PO SCH ×2 (07:43→20:55)
[2020-06-12] MEDS: MULTIVITAMIN TAB PO SCH (07:43)
[2020-06-12] MEDS: PANTOprazole 40 MG TAB PO SCH ×2 (07:43→20:55)
[2020-06-12] MEDS: AMIODARONE 200 MG TAB PO SCH (07:44)
[2020-06-12] MEDS: OMEGA-3 (PURIFIED FISH OIL) 1 GM CAP PO SCH (07:44)
[2020-06-12] MEDS: METOPROLOL TARTRATE 50 MG TAB PO SCH ×3 (07:45→20:55)
[2020-06-12] MEDS: FLUTICASONE PROPIONATE NA SPR 16 GM BTL NAE SCH (07:45)
[2020-06-12] MEDS: ACYCLOVIR 400 MG TAB PO SCH ×2 (07:46→20:55)
[2020-06-12] MEDS: SODIUM CHLORIDE 0.9% 1000ML 1,000 ML IV SCH (07:46)
[2020-06-12] MEDS: GABAPENTIN 100 MG CAP PO SCH ×3 (07:46→20:55)
[2020-06-12 07:54] LABS: Folate (Folic Acid) 17.2 ng/ml (>5.38)
[2020-06-12 07:57] LABS: Creatine Kinase 21 U/L (39-308); Ferritin 1118.3 ng/ml (8-388); Immunoglobulin M < 5.3 mg/dl (40-230); Iron 102 mcg/dl (35-175); Transferrin 139 mg/dl (200-360); Transferrin Percent Saturation 52 % (20-50)
[2020-06-12] MEDS ORDERED: ASPIRIN 81 MG ECTAB PO SCH (09:00)
[2020-06-12] MEDS ORDERED: SODIUM CHLORIDE 0.9% 250 ML IV PRN (09:36)
--- NOTE | 2020-06-12 09:50 | Consultation Report ---
DATE OF CONSULTATION: 06/12/2020 HEMATOLOGY CONSULTATION REASON FOR CONSULTATION: Severe anemia, probable relapsed multiple myeloma. HISTORY OF PRESENT ILLNESS: Mr. Collins is a very pleasant 65-year-old gentleman well known to [facility], currently under my care with IgG kappa multiple myeloma by history. This gentleman has been hospitalized multiple times over the past several months with recent history of rhabdomyolysis, cardiac arrest and a prolonged hospitalization and rehabilitation. This gentleman was in to see Dr. Koch yesterday and was noted to have an elevated creatinine and worsening anemia. He was hospitalized to [facility] in February through March 2020 status post fall resulting in rhabdomyolysis and 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. The hospitalization was complicated with subsequent ICU admission, coag-negative Staphylococcus bacteremia/sepsis and left lobar pneumonia, Legionella pneumonia to be specific. While going to the bathroom on 03/11 had a PEA arrest, subsequent drop in hemoglobin, diagnosed with retroperitoneal bleed seen on CAT scan of the abdomen and pelvis. He was subsequently transferred to [place] and did not require surgical intervention, was subsequently extubated on 03/14 and discharged to [facility] on 03/22. He was subsequently readmitted to [facility] on 04/16 through 04/20 due to generalized weakness and treated for pneumonia. During that particular hospitalization, he had decompensated suffering a bout of hypotension and required transfusional support. CT showed a similar size retroperitoneal bleed and was suspected to have a rebleed at that time. He was subsequently readmitted on 05/15 through 05/21 because of acute 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, dehydration and such. This gentleman was diagnosed with IgG kappa multiple myeloma in 2009. He has been heavily pretreated initially with Revlimid, Velcade and dexamethasone, subsequently last treated with daratumumab. His last dose of daratumumab was administered on 01/31/2020, which in essence was the last outpatient visit with me leading up to his fall and the aforementioned problems described above. He is once again hospitalized. I suspect he is either actively bleeding or more likely multiple myeloma has relapsed. PAST MEDICAL HISTORY: Includes IgG kappa multiple myeloma, rhabdomyolysis, acute renal injury, pancytopenia, paroxysmal atrial fibrillation, retroperitoneal bleed, sepsis and lobar pneumonia, electrolyte dysfunction. PAST SURGICAL HISTORY: Includes pilonidal cyst removed from coccyx, status post autologous stem cell transplant, incision and drainage of a cyst in the right groin, colonoscopy, cataract surgery, bone marrow biopsy and aspiration. MEDICATIONS: Prior to admission include acyclovir 400 mg p.o. b.i.d., albuterol sulfate 2 puffs inhaled q.6 hours, amiodarone 200 mg p.o. daily, ascorbic acid 500 mg p.o. daily, aspirin 81 mg p.o. daily, calcium carbonate 1 tablet p.o. daily, vitamin B12 1000 mcg p.o. daily, docusate sodium 100 mg p.o. daily p.r.n., Flonase 2 sprays intranasally daily, Mucinex 600 mg p.o. b.i.d., ipratropium 3 mL inhaled q.4 hours p.r.n., metoprolol tartrate 50 mg p.o. t.i.d., mirtazapine 15 mg p.o. at bedtime, multivitamin 1 tablet p.o. daily, Protonix 40 mg p.o. b.i.d., MiraLax 17 grams p.o. p.r.n., Compazine 5 mg p.o. q.8 hours p.r.n., promethazine 25 mg MI q.6 hours p.r.n., simethicone 80 mg p.o. q.6 hours p.r.n., Carafate 1 gram p.o. a.c. and at bedtime, bisacodyl 10 mg per rectum daily p.r.n., cetirizine 5 mg p.o. daily p.r.n., doxepin 25 mg p.o. at bedtime, gabapentin 100 mg p.o. t.i.d., omega-3 fish oil 1 capsule p.o. daily. ALLERGIES: HOUSE DUST, SULFA, LEVOFLOXACIN, AND EPINEPHRINE. FAMILY HISTORY: Positive for diabetes mellitus. SOCIAL HISTORY: The patient is single. He is presently in an assisted living facility. He is a nonsmoker, nondrinker, non-illicit drug user. REVIEW OF SYSTEMS: GENERAL: Negative for fevers, chills or sweats. He is not anorexic or losing weight. SKIN: No rashes or lesions. No history of dermatoses. HEENT: Negative for headaches, lightheadedness or dizziness. No dysphagia or sore throat. LYMPHATICS: No history of lymphoproliferative disease. CARDIAC: Positive history of cardiac arrest. No current angina or palpitations. PULMONARY: Negative for COPD. He is not short of breath, dyspneic or orthopneic. No cough or hemoptysis. GASTROINTESTINAL: Negative for abdominal pain, nausea, vomiting, diarrhea or constipation. GENITOURINARY: No hematuria, dysuria, or urinary incontinence. PSYCHIATRIC: Positive for depression. ENDOCRINE: Negative for diabetes or thyroid disease. NEUROLOGIC: Negative for seizure, stroke, or migraine headache. HEMATOLOGIC: Positive for anemia. PHYSICAL EXAMINATION: GENERAL: Very pleasant 65-year-old gentleman, awake, alert and appropriate, in no acute distress. VITAL SIGNS: Temperature 37.2, pulse 83, respiratory rate 18, blood pressure 104/65. SKIN: Warm, dry, noncyanotic without petechia, rash or ecchymosis. HEENT: Head is atraumatic, normocephalic. Eyes: PERRLA, EOMI. Sclerae nonicteric. No conjunctival injection. Nares are patent without rhinorrhea or discharge. Throat clear. Tongue midline. Mucous membranes are moist. NECK: Supple without JVD or thyromegaly. LYMPHATICS: No cervical, supraclavicular, axillary or inguinal palpable nodes. HEART: Regular rate and rhythm. No clicks, rubs, murmurs or gallops. LUNGS: Clear to auscultation bilaterally. ABDOMEN: Soft, nontender, nondistended, without palpable hepatosplenomegaly. EXTREMITIES: No calf tenderness or swelling. No clubbing, cyanosis or edema. NEUROLOGICAL: Awake, alert and oriented x3. Cranial nerves grossly intact. LABORATORY DATA: WBC count 3110, hemoglobin 7.5, platelet count 100. Sodium 139, potassium 3.7, chloride 107, carbon dioxide 24, creatinine 3.56, BUN 16, alkaline phosphatase 126. Globulin fraction 5.1, albumin 2.4. TSH 5.430. RADIOGRAPHIC DATA: Chest x-ray; small left pleural effusion, bibasilar opacities, which may reflect consolidation and/or atelectasis. Numerous skeletal lytic lesions attributable to multiple myeloma. IMPRESSION: 1. [id number] 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. 2. Paroxysmal atrial fibrillation. 3. IgG kappa multiple myeloma. 4. Pancytopenia. 5. History of retroperitoneal bleed. 6. Severe anemia. PLAN: Mr. Collins is a pleasant, somewhat unfortunate 65-year-old gentleman with decade longstanding history of IgG kappa multiple myeloma. This gentleman was previously under Dr. Lopez's care and also visits with consultants at the [facility]. Late last summer, I took over his care while he was receiving daratumumab and was doing reasonably well up until 01/30 when he received his final dose. Shortly thereafter, suffered a fall, rhabdomyolysis, which led to the clinical events described in the HPI. This gentleman's course has been complicated by sepsis, pneumonia, retroperitoneal bleed and kidney failure. He now re-presents with worsening creatinine and anemia. There is no external evidence of ongoing bleeding. However, it would be reasonable to obtain a CT scan of the abdomen to reassess the retroperitoneum. His globulin fraction is increased, which leads me to believe there is probably a component of relapse. Proceed with serum and urine protein electrophoresis with immunofixation, quantitative immunoglobulins perhaps kappa/lambda light chain analysis moving forward. Provide transfusional support and if iron studies are stable, perhaps incorporate erythropoietin supplementation for Kirt. At some point, we need to decide where we go therapeutically once he is medically stable. He is not having any pain or discomfort at this time. We will plan on following Kirt intermittently during his hospital stay and more likely to see him in the outpatient arena perhaps for bone marrow biopsy and aspiration. Agree with medical management otherwise. Thank you very much for allowing me to participate in his care.
--- NOTE | 2020-06-12 10:18 | Nephrology Consultation ---
Date of Consultation June 12, 2020 Assessment & Plan (1) CHLOÉ (acute kidney injury): * CHLOÉ due to relative hypotension and relative intravascular volume contraction * Recommend d/c IVF and transfuse 2U PRBC * Monitor PRP (2) Chronic kidney disease: * Baseline Cr 2.5 (3) Anemia: * No overt blood loss * Anticoagulant stopped 04/27 * Noted to have pancytopenia (4) Bone marrow replaced by transplant: * h/o multiple myeloma s/p autologous stem cell transplant x2 * Await Oncology evaluation. May require bone marrow biopsy History of Present Illness Reason for Consultation: CHLOÉ/CKD Attending Physician: Deacon Kevin MD History of Present Illness Mr. Collins is a 65 year old white male who is seen at the request of Dr. Kevin for evaluation of CHLOÉ/CKD. Medical records in the EMR were reviewed this am and are summarized as follows: Mr. Collins has a complex medical history including multiple myeloma s/p autologous stem cell transplant x2 (Oncologist - Dr. Potts), anemia, HTN, atrial fibrillation, and peripheral neuropathy. He was hospitalized 02/25 due to staph bacteremia associated w/ mediport, rhabdomyolysis, PEA arrest and retroperitoneal bleed. Anticoagulation has since been held. Mr. Collins was again hospitalized 05/29 due to dehydration and CHLOÉ (Cr peaked at 5.2, recovered to 2.8 at time of discharge, baseline 2.5). Mr. Collins presented to [facility] office yesterday for hospital follow up evaluation. Laboratory studies revealed Hgb had dropped to 6.4 and Cr increased to 3.3. Telephone consultation was obtained w/ Dr. Potts. Admission was advised for blood transfus ion and Oncology evaluation. Bone marrow biopsy may be needed to establish cause of recurrent anemia. Allergies Allergy/AdvReac Type Severity Reaction Status Date / Time epinephrine Allergy Intermediate STATES Verified 06/11/20 20:01 GETS A "WARNER" levofloxacin Allergy Intermediate RASH Verified 06/11/20 20:01 Sulfa (Sulfonamide Allergy Intermediate Rash Verified 06/11/20 20:02 Antibiotics) house dust Allergy Unknown Itchy Verified 06/11/20 20:02 Eye(s) Home Medications Medication Instructions Recorded Confirmed Type acetaminophen [Tylenol] 650 mg PO Q4 PRN MDD 3G 05/15/20 06/11/20 History acyclovir 400 mg PO BID 05/15/20 06/11/20 History albuterol sulfate [Proventil HFA] 2 puff INHALATION Q6H 05/15/20 06/11/20 History amiodarone 200 mg PO DAILY 05/15/20 06/11/20 History ascorbic acid (vitamin C) [Vitamin 500 mg PO DAILY 05/15/20 06/11/20 History C] aspirin 81 mg PO DAILY 05/15/20 06/11/20 History calcium carbonate-vitamin D3 1 tab PO DAILY 05/15/20 06/11/20 History [Calcium 600 + D(3)] cyanocobalamin (vitamin B-12) 1,000 mcg PO DAILY 05/15/20 06/11/20 History [Vitamin B-12] docusate sodium 100 mg PO DAILY PRN 05/15/20 06/11/20 History fluticasone propionate [Flonase 2 spray INTRANASAL DAILY 05/15/20 06/11/20 History Allergy Relief] guaifenesin [Mucinex] 600 mg PO BID 05/15/20 06/11/20 History ipratropium-albuterol 3 ml INHALATION Q4H PRN 05/15/20 06/11/20 History metoprolol tartrate 50 mg PO TID 05/15/20 06/11/20 History mirtazapine 15 mg PO HS 05/15/20 06/11/20 History multivitamin 1 tab PO DAILY 05/15/20 06/11/20 History pantoprazole 40 mg PO BID 05/15/20 06/11/20 History polyethylene glycol 3350 [Miralax] 17 g PO DAILY PRN 05/15/20 06/11/20 History prochlorperazine maleate 5 mg PO Q8 PRN 05/15/20 06/11/20 History promethazine 25 mg RI Q6H PRN 05/15/20 06/11/20 History simethicone 80 mg PO Q6 PRN 05/15/20 06/11/20 History sucralfate [Carafate] 1 g PO ACHS 05/15/20 06/11/20 History bisacodyl 10 mg rectal suppository 10 mg RI DAILY PRN 06/06/20 06/11/20 History cetirizine 5 mg tablet 5 mg PO DAILY PRN 06/06/20 06/11/20 History acetaminophen 650 mg RI Q6H PRN MDD 3G 06/11/20 06/11/20 History doxepin 100 mg capsule 25 mg PO HS cap 06/11/20 06/11/20 History gabapentin 100 mg PO TID 06/11/20 06/11/20 History omega 0-fio-ewv-fish oil [Fish Oil 1 cap PO DAILY 06/11/20 06/11/20 History High Potency] Patient History Medical History Acute confusion Acute dehydration Acute hypotension Acute kidney injury CKD (chronic kidney disease) HTN (hypertension) Hypomagnesemia Multiple myeloma Neuropathy BL FOOT; 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 CANCER TREATMENT Pancytopenia Paroxysmal atrial fibrillation Pneumonia Retroperitoneal bleed Rhabdomyolysis Severe sepsis Surgical History History of bone marrow biopsy History of cataract surgery BL History of colonoscopy History of incision and drainage CYST - RT GROIN History of stem cell transplant History of surgery CYST REMOVED FROM COCCYX 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; 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 Family History Family/Other Family history of diabetes mellitus Social History Smoking Status: Former smoker Second Hand Exposure: No; Do You Dip or Chew Tobacco: No; Hx Alcohol Use: No Hx Substance Use: No Preferred Language: Citizen Of [place] Communication Ability: Effective Licensed Mental Health Professional Required: No Beliefs That Will Affect Care: None marital status: Single Current Living Situation: [facility] Current Living Situation Comment: [facility] Feels Safe at Home: Yes Assistive Devices: Walker Review of Systems Constitutional: + weakness; no fever Eyes: no problem reported Ear, Nose, Mouth, Throat: no problem reported Respiratory: no cough and no dyspnea Cardiovascular: no chest pain, no palpitations and no edema Gastrointestinal: no abdominal pain and no diarrhea/loose stools Musculoskeletal: no back pain Integumentary: no rash Neurologic: no dizziness Physical Exam Constitutional: not in distress Eyes: PERRL, conjunctivae normal, anicteric sclerae ENMT: external ear and nose normal, oropharynx normal Neck: trachea midline, no thyromegaly Respiratory: normal respiratory effort, lungs clear to auscultation Cardiovascular: RRR, no murmur, no edema Gastrointestinal (Abdomen): normal bowel sounds, soft, nontender, no hepatosplenomegaly Musculoskeletal: Extremities: no cyanosis Skin: no rashes, warm and dry Neurologic: awake; not confused Results & Data ([facility]) Vital Signs (Past 12 Hours) Vital Signs Temp Pulse Pulse Resp BP Pulse Ox 06/12/20 07:30 36.3 C L 75 20 95/59 L 99 06/12/20 03:38 37.2 C 83 18 104/65 98 06/11/20 23:46 86 06/11/20 23:00 37.2 C 77 17 106/66 99 Laboratory Tests 05/21/20 06/11/20 06/12/20 07:40 17:46 06:23 WBC 2.61 L Hgb 6.7 L* Hct 19.3 L* Plt Count 94 L Sodium 139 Potassium 3.7 Chloride 107 Carbon Dioxide 24 BUN 16 Creatinine 2.80 H 3.56 H Glucose 95 Transferrin % Sat Ferritin Albumin 2.4 L 06/12/20 06:23 WBC Hgb Hct Plt Count Sodium Potassium Chloride Carbon Dioxide BUN Creatinine Glucose Transferrin % Sat 52 H Ferritin 1118.3 H Albumin PG Care Time/CCT Total # of Minutes Spent Total Time Spent with Patient: Total time spent is greater than 50% in coordination of care (as documented) at patient's floor/unit and/or counseling patient: Coding Level of Care Code 60353 Inpt Consult Level 5 Diagnoses CHLOÉ (acute kidney injury) N17.9 Chronic kidney disease N18.9 Anemia D64.9 Bone marrow replaced by transplant Z94.81
--- NOTE | 2020-06-12 15:18 | Hospitalist Progress Note ---
Date of Service June 12, 2020 Assessment & Plan (1) Anemia: Likely due to myelosuppression from multiple myeloma. Anemia labs indicate anemia of chronic disease with high ferritin, high iron sat, and normal B12/folate. - Transfuse 2 units PRBCs on 06/12. - Hematology consulted - Ordered some testing; will follow up in clinic with results and plan. (2) CHLOÉ (acute kidney injury): Acute on chronic. Baseline Cr ~2.8 - 3.0. Admitted with Cr of 3.5. - Appreciate nephrology consult - Will give blood and stop IVFs (3) Multiple myeloma in remission: IgG kappa multiple myeloma. Follows with Dr. Potts. S/p autologous stem cell transplant x2. - As above (4) Paroxysmal atrial fibrillation: On no anticoagulation due to retroperitoneal bleed causing PEA cardiac ar rest. - Continue amiodarone 200 mg p.o. daily - Hold aspirin for now. (5) Retroperitoneal bleed: Not acute. History of such. Mostly resolved on most recent CT in May. - Repeat scan as requested by Dr. Potts. (6) Pancytopenia: Suspect secondary to myeloma. - As above (7) Neuropathy: Partly due to Velcade previously and then due to lying on his arm at rehab. - Continue gabapentin 100 mg p.o. 3 times daily (8) Shoulder weakness: Suspected rotator cuff tear. - PT/OT (9) DVT prophylaxis: SCDs - Will defer chemical prophylaxis until after CT a/p. Admission and Anticipated Discharge Date Admission Date: June 11, 2020 Subjective Feels fairly well today overall. No major concerns. Not that tired despite anemia. Reports no fevers/chills, chest pain, shortness of breath, abdominal pain, nausea, or vomiting. Physical Exam Constitutional: WD/WN, vitals as above Eyes: EOM intact bilaterally; no conjunctival abnormality ENMT: external ear and nose normal, oropharynx normal Neck: trachea midline, no thyromegaly normal visual inspection Respiratory: normal respiratory effort, lungs clear to auscultation no respiratory distress Cardiovascular: RRR, no murmur, no edema Gastrointestinal (Abdomen): Inspection/Auscultation: abdomen normal to inspection; abdomen not distended Musculoskeletal: no cyanosis or clubbing, extremities motor strength 5/5 Skin: no rashes, warm and dry Neurologic: moves all extremities and awake Psychiatric: Orientation: alert, oriented to person and cooperative Results & Data Results & Data ([facility]) Vital Signs (Past 12 Hours) Vital Signs Temp Pulse Pulse Pulse Resp BP Pulse Ox 06/12/20 13:47 56 L 101/66 06/12/20 07:30 36.3 C L 76 75 20 95/59 L 99 06/12/20 03:38 37.2 C 83 18 104/65 98 PG Care Time/CCT Total # of Minutes Spent Total Time Spent with Patient: Total time spent is greater than 50% in coordination of care (as documented) at patient's floor/unit and/or counseling patient: Coding Level of Care Code 34360 Subseq Hosp Care Lvl 2 Diagnoses Anemia D64.9 CHLOÉ (acute kidney injury) N17.9 Multiple myeloma in remission C90.01 Paroxysmal atrial fibrillation I48.0 Retroperitoneal bleed R58 Pancytopenia D61.818 Neuropathy G62.9 Shoulder weakness R29.898 DVT prophylaxis Z29.9
--- NOTE | 2020-06-12 16:13 | CT Scan Report ---
CT OF THE ABDOMEN AND PELVIS WITHOUT CONTRAST CLINICAL HISTORY: Monitor retroperitoneal bleed. COMPARISON STUDY: CT of the abdomen and pelvis May 19, 2020. TECHNIQUE: Axial images of the abdomen and pelvis were obtained without IV contrast. Images were revi ewed in the axial, sagittal, and coronal planes. Automated exposure control was utilized for the lisbeth dy. A dose lowering technique was utilized adhering to the principles of ALARA. FINDINGS: Bilateral pleural effusions have nearly completely resolved since CT of May 19, 2010. N o pneumatosis, free air or portal venous gas is present. Evaluation of the abdomen and pelvis is subo ptimal on this unenhanced exam. Unenhanced images of the liver, spleen, adrenal glands, kidneys and p ancreas are unremarkable. There are gallstones within the gallbladder. The gallbladder is not distend ed. The appearance of the gallbladder is unchanged. Minimal adjacent infiltration is unchanged. There is no hydronephrosis. There is no evidence for a bowel obstruction. A moderate amount stool is noted within the colon. The appendix is normal. Note is made of bladder wall thickening. No lymphadenopath y is present. There are no urinary calculi. The previously described right retroperitoneal hemorrhage has nearly completely resolved. This is decreased since prior exam. No new sites of hemorrhage are p resent. Numerous lytic skeletal lesions are again noted. These are similar to prior exam. IMPRESSION: 1. Near complete resolution of the previously described right retroperitoneal hemorrhage. 2. No acute process within the abdomen or pelvis on unenhanced exam. 3. Cholelithiasis. 4. Redemonstration of lytic skeletal lesions consistent with multiple myeloma. 5. Bladder wall thickening. This is probably chronic however could be correlated with urinalysis. ACT 112: Negative or not required by law. Electronically signed by: Zack Turcios M.D. 06/12/2020 4:12 PM
[2020-06-12] MEDS ORDERED: MIRTAZAPINE TAB 15 MG TAB PO SCH (21:00)
[2020-06-12] MEDS ORDERED: DOXEPIN HCL 25 MG CAPSULE PO SCH (21:00)
--- NOTE | 2020-06-12 21:22 | Electrocardiogram Report ---
Test Reason : Blood Pressure : / mmHG Vent. Rate : 076 BPM Atrial Rate : 076 BPM P-R Int : 170 ms QRS Dur : 090 ms QT Int : 402 ms P-R-T Axes : 038 019 045 degrees QTc Int : 452 ms Normal sinus rhythm Low voltage QRS Nonspecific T wave abnormality Abnormal ECG When compared with ECG of 15-MAY-2020 18:43, Nonspecific T wave abnormality, worse in Anterolateral leads QT has lengthened Confirmed by Tam Munoz ([id number]) on 06/12/2020 9:22:31 PM Referred By: Mathieu Koch Confirmed By:Tam Munoz
[2020-06-13 06:36] LABS: Hematocrit (blood only) 26.3 % (42-52); Hemoglobin 9.2 g/dL (14.0-18.0); Mean Corpuscular Hemoglobin 31.8 pg (25-34); Mean Platelet Volume 9.1 fL (7.4-10.4); Nucleated RBC # (auto) 0.02 K/uL (0-0); Nucleated RBC % (auto) 0.6 %; Platelet Count 88 K/uL (130-400); RDW Coefficient of Variation 21.9 % (11.5-14.5); RDW Standard Deviation 68.8 fL (36.4-46.3); Red Blood Count 2.89 M/uL (4.7-6.1); White Blood Count 3.51 K/uL (4.8-10.8)
[2020-06-13 07:06] LABS: BUN Creatinine Ratio 4.5 (10-20); Calcium 8.7 mg/dl (8.5-10.1); Creatinine Clr Calc Pharmacy 27.7 ml/min; Est GFR (African American) 24.5; Est GFR (Non-African American) 21.1; Potassium 3.5 mmol/L (3.5-5.1)
[2020-06-13] MEDS: SUCRALFATE 1 GM TAB PO SCH ×2 (09:01→11:55)
[2020-06-13] MEDS: PANTOprazole 40 MG TAB PO SCH (09:01)
[2020-06-13] MEDS: GABAPENTIN 100 MG CAP PO SCH ×2 (09:01→14:51)
[2020-06-13] MEDS: ACYCLOVIR 400 MG TAB PO SCH (09:01)
[2020-06-13] MEDS: guaiFENesin 600 MG TABCR PO SCH (09:02)
[2020-06-13] MEDS: OMEGA-3 (PURIFIED FISH OIL) 1 GM CAP PO SCH (09:02)
[2020-06-13] MEDS: AMIODARONE 200 MG TAB PO SCH (09:02)
[2020-06-13] MEDS: MULTIVITAMIN TAB PO SCH (09:02)
[2020-06-13] MEDS: METOPROLOL TARTRATE 50 MG TAB PO SCH ×2 (09:02→14:51)
[2020-06-13] MEDS: FLUTICASONE PROPIONATE NA SPR 16 GM BTL NAE SCH (09:03)
--- NOTE | 2020-06-13 10:18 | Nephrology Progress Note ---
Date of Service June 13, 2020 Assessment & Plan (1) CHLOÉ (acute kidney injury): * CHLOÉ due to relative hypotension and relative intravascular volume contraction * Creatinine improved from 3.5 --> 3.0 following 2U PRBC * Electrolyte balance is acceptable. No acute indication for HD * Monitor PRP * No further Nephrology evaluation indicated. Will sign off. Please call if further assistance is needed. * Please schedule Nephrology follow up 10 - 14 days following hospital discharge ([phone]). Patient will need blood and urine studies completed at least 2 days prior to visit. I have placed orders in EMR (2) Chronic kidney disease: * Baseline Cr 2.5 (3) Anemia: * No overt blood loss * Anticoagulant stopped 04/27 * Noted to have pancytopenia (4) Bone marrow replaced by transplant: * h/o multiple myeloma s/p autologous stem cell transplant x2 * Await Oncology evaluation. SIEP pending. Patient may require bone marrow biopsy Admission and Anticipated Discharge Date Admission Date: June 11, 2020 Subjective Mr. Collins was seen & examined in his hospital room this morning. He was transfused 2 U PRBC. He currently denies angina or dyspnea. He is anxious to return to [facility]. Review of Systems Constitutional: + weakness; no fever Eyes: no problem reported Ear, Nose, Mouth, Throat: no problem reported Respiratory: no cough and no dyspnea Cardiovascular: no chest pain, no palpitations and no edema Gastrointestinal: no abdominal pain and no diarrhea/loose stools Musculoskeletal: no back pain Integumentary: no rash Neurologic: no dizziness Physical Exam Constitutional: not in distress Eyes: EOM intact bilaterally; no conjunctival abnormality ENMT: external ear and nose normal, oropharynx normal Neck: trachea midline, no thyromegaly normal visual inspection Respiratory: normal respiratory effort, lungs clear to auscultation no respiratory distress Cardiovascular: RRR, no murmur, no edema Gastrointestinal (Abdomen): Inspection/Auscultation: abdomen normal to inspection; abdomen not distended Musculoskeletal: Extremities: no cyanosis Skin: no rashes, warm and dry Neurologic: moves all extremities and awake Psychiatric: Orientation: alert, oriented to person and cooperative Results & Data ([facility]) Vital Signs (Past 12 Hours) Vital Signs Temp Pulse Pulse Resp BP Pulse Ox 06/13/20 08:57 36.7 C 77 17 118/72 99 06/13/20 07:36 74 02/05/21 05:08 80 06/13/20 03:38 37 C 82 16 104/64 95 Laboratory Tests 06/12/20 06/13/20 06/13/20 06:23 05:58 05:58 WBC 3.51 L Hgb 9.2 L Hct 26.3 L Plt Count 88 L Sodium 141 Potassium 3.5 Chloride 112 H Carbon Dioxide 23 BUN 14 Creatinine 3.00 H D Glucose 88 Transferrin % Sat 52 H Ferritin 1118.3 H PG Care Time/CCT Total # of Minutes Spent Total Time Spent with Patient: Total time spent is greater than 50% in coordination of care (as documented) at patient's floor/unit and/or counseling patient: Coding Level of Care Code 62986 Subseq Hosp Care Lvl 3 Diagnoses CHLOÉ (acute kidney injury) N17.9 Chronic kidney disease N18.9 Anemia D64.9 Bone marrow replaced by transplant Z94.81
--- NOTE | 2020-06-13 16:59 | Discharge Summary ---
Date of Service June 13, 2020 Admission HPI Per Admitting Provider Kirt Collins is a 65-year-old medically complex male with multiple myeloma, history of retroperitoneal bleed, history of C. 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 Patient denies any chest pain, shortness of breath, dizziness. He has complex medical history. He was hospitalized in 2018 while on treatments for multiple myeloma for sepsis with C. difficile and right lower lobe pneumonia with atrial fibrillation requiring ICU admission. He was hospitalized here in February-Mar, 2020 after a fall caused rhabdomyolysis. That hospitalization had multiple complications with subsequent ICU admission with coag negative staph bacteremia/sepsis (suspected left lobar pneumonia versus medical), Legionella pneumonia, CHLOÉ and atrial fibrillation with RVR. While sitting on the toilet and having a bowel movement on 03/11/20 the patient had a PEA arrest with subsequent drop in hemoglobin 9.1-6.1 and diagnosed with retroperitoneal bleed on CT A/P (not present earlier in the admission). He was subsequently transferred [facility] but did well without any surgical intervention and was extubated on 03/14 and [facility]. He was subsequently admitted from April 16-2019 due to generalized weakness and was initially treated for pneumonia. During this hospitalization he had acute decompensation with hypotension requiring 2 units of blood overnight. CT showed similar size retroperitoneal bleed and was suspected to have rebled at that time although also noted to have nausea and vomiting however GI consult not pursued as was stable following this. He notably had no pain with this recurrent retroperitoneal bleed. He was discharged to [facility] where he now resides. He was again readmitted on May 152019 due to acute 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 suspected secondary to dehydration and JAVON inhibitor. Creatinine improved from 5.2 to 2.8 with IV hydration. He was followed up in nephrology clinic today. In this clinic note it was reported his hemoglobin dropped to 6.4 and creatinine risen to 3.3 on outpatient labs on 06/10/2020. His case was discussed with Dr. Potts his oncologist and recommended inpatient admission. In the ER surprisingly his hemoglobin is now 7.5 however creatinine has further increased to 3.56. UA similar to previous with granular casts present, 2+ protein, protein/creatinine ratio pending. The patient was referred to medicine for admission and ongoing management of CHLOÉ and anemia. Principal Diagnosis Anemia CHLOÉ Concern for progressing multiple myeloma Discharge Exam Constitutional WD/WN, vitals as above Eyes EOM intact bilaterally; no conjunctival abnormality ENMT external ear and nose normal, oropharynx normal Neck trachea midline, no thyromegaly normal visual inspection Respiratory normal respiratory effort, lungs clear to auscultation no respiratory distress Cardiovascular RRR, no murmur, no edema Gastrointestinal (Abdomen) Inspection/Auscultation: abdomen normal to inspection; abdomen not distended Musculoskeletal no cyanosis or clubbing, extremities motor strength 5/5 Skin no rashes, warm and dry Neurologic moves all extremities and awake Psychiatric Orientation: alert, oriented to person and cooperative Discharge Data Allergies Allergy/AdvReac Type Severity Reaction Status Date / Time epinephrine Allergy Intermediate STATES Verified 06/11/20 20:01 GETS A "WARNER" levofloxacin Allergy Intermediate RASH Verified 06/11/20 20:01 Sulfa (Sulfonamide Allergy Intermediate Rash Verified 06/11/20 20:02 Antibiotics) house dust Allergy Unknown Itchy Verified 06/11/20 20:02 Eye(s) Consultations 06/11/20 20:20 Consult Hematology Routine Ordered Studies 06/12/20 15:18 CT abd pelvis wo con Routine Hospital Course (1) Anemia: Likely due to myelosuppression from multiple myeloma. Anemia labs indicate anemia of chronic disease with high ferritin, high iron sat, and normal B12/folate. - Transfused 2 units PRBCs on 06/12. - Hematology consulted - Ordered some testing; will follow up in clinic with results and plan. - On discharge, hgb was stable at 9.2. (2) CHLOÉ (acute kidney injury): Acute on chronic. Baseline Cr ~2.8 - 3.0. Admitted with Cr of 3.5. - Appreciate nephrology consult - On discharge, Cr was back to 3.0 which is his baseline. (3) Multiple myeloma in remission: IgG kappa multiple myeloma. Follows with Dr. Potts. S/p autologous stem cell transplant x2. - As above (4) Paroxysmal atrial fibrillation: On no anticoagulation due to retroperitoneal bleed causing PEA cardiac arrest. - Continue amiodarone 200 mg p.o. daily (5) Retroperitoneal bleed: Not acute. History of such. Mostly resolved on most recent CT in May. - Repeat scan as requested by Dr. Potts. (6) Pancytopenia: Suspect secondary to myeloma. - As above (7) Neuropathy: Partly due to Velcade previously and then due to lying on his arm at rehab. - Continue gabapentin 100 mg p.o. 3 times daily (8) Shoulder weakness: Suspected rotator cuff tear. - PT/OT (9) DVT prophylaxis: SCDs - Will defer chemical prophylaxis until after CT a/p. Total Time Total Time Spent Total Time Spent (In Minutes): 35 Discharge Plan Discharge Items Patient Disposition: Transfer Halfway Fac Reason For Visit: CHLOÉ,ANEMIA Discharge Diagnosis: Anemia and kidney injury Activity: Resume your previous activity Non-emergency contact: Primary Care Provider, Galley Cook and Oncologist Call non-emergency contact if: your symptoms worsen Follow-up/Referrals: Jeanne Ellis [place] [Primary Care Provider] - Diet: Heart Healthy Addtl Attending Provider Instructions: Mr. Collins, You were admitted to the hospital with anemia. We are worried that this may be related to your multiple myeloma. We did some 24-hour testing and the results are pending at this time. We would like you to follow up with Dr. Potts to discuss the pending results of your tests and what the treatment options may need to be. Please also follow up with Dr. Koch or your regular kidney doctor in order to track your kidney function. Pending Studies at Discharge: Yes Studies:: Multiple myeloma testing Stand-Alone Forms: My [facility] Skilled Items Patient informed of condition?: No DNR: No Discharge Level of Care: Acute rehab Communicable Disease: No Discharge Prognosis: Stable Lines: None Urinary Catheter: No Medications and DC Order Prescriptions: Continued cetirizine 5 mg tablet 5 mg PO DAILY PRN (Reason: Allergy Symptoms) RF: 0 bisacodyl 10 mg suppository 10 mg MT DAILY PRN (Reason: Constipation) RF: 0 multivitamin Tablet 1 tab PO DAILY RF: 0 acetaminophen [Tylenol] 325 mg Tablet 650 mg PO Q4 MDD 3G PRN (Reason: pain/fever) RF: 0 ipratropium-albuterol 0.5 mg-3 mg(2.5 mg base)/3 mL Solution For Nebulization 3 ml INHALATION Q4H PRN (Reason: Shortness Of Breath Or Wheezing) RF: 0 amiodarone 200 mg Tablet 200 mg PO DAILY RF: 0 promethazine 25 mg Suppository 25 mg MT Q6H PRN (Reason: Nausea) RF: 0 prochlorperazine maleate 5 mg tablet 5 mg PO Q8 PRN (Reason: Nausea) RF: 0 sucralfate [Carafate] 1 gram Tablet 1 g PO ACHS RF: 0 cyanocobalamin (vitamin B-12) [Vitamin B-12] 1,000 mcg Tablet 1,000 mcg PO DAILY RF: 0 acyclovir 400 mg tablet 400 mg PO BID RF: 0 aspirin 81 mg Tablet,Delayed Release (Dr/Ec) 81 mg PO DAILY RF: 0 ascorbic acid (vitamin C) [Vitamin C] 500 mg Tablet 500 mg PO DAILY RF: 0 pantoprazole 40 mg tablet,delayed release (DR/EC) 40 mg PO BID RF: 0 metoprolol tartrate 50 mg tablet 50 mg PO TID RF: 0 docusate sodium 100 mg Capsule 100 mg PO DAILY PRN (Reason: Constipation) RF: 0 mirtazapine 15 mg tablet 15 mg PO HS RF: 0 polyethylene glycol 3350 [Miralax] 17 gram/dose Powder 17 g PO DAILY PRN (Reason: Constipation) RF: 0 albuterol sulfate [Proventil HFA] 90 mcg/actuation Hfa Aerosol Inhaler 2 puff INHALATION Q6H RF: 0 fluticasone propionate [Flonase Allergy Relief] 50 mcg/actuation [place],Suspension 2 spray INTRANASAL DAILY RF: 0 calcium carbonate-vitamin D3 [Calcium 600 + D(3)] 600 mg(1,500mg) -400 unit Tablet 1 tab PO DAILY RF: 0 simethicone 80 mg Tablet 80 mg PO Q6 PRN (Reason: Gi Upset) RF: 0 guaifenesin [Mucinex] 600 mg Tablet Extended Release 12hr 600 mg PO BID RF: 0 doxepin 100 mg capsule 25 mg PO HS RF: 0 acetaminophen 650 mg Suppository 650 mg MT Q6H MDD 3G PRN (Reason: Fever) RF: 0 omega 5-nhv-xkc-fish oil 500-1,000 mg Capsule 1 cap PO DAILY RF: 0 gabapentin 100 mg Capsule 100 mg PO TID RF: 0 Discharge Orders: Discharge Order (Routine); Ordered 06/13/20 Ordered By: Deacon Kevin Admission Data Admit Date/Time: 06/11/20 19:07 Attending Provider: Deacon Kevin Admit Provider: Alfonso Burk Primary Care Provider: Jeanne Ellis [facility] Other Providers: Devin Potts V. ; Jeanne Ellis [facility] Other Interventions: Discharge Summary Assessment (RN) Last Done: 06/13/20 11:43 Coding Level of Care Code D/C Day Management >30 mins Diagnoses Anemia D64.9 CHLOÉ (acute kidney injury) N17.9 Multiple myeloma in remission C90.01 Paroxysmal atrial fibrillation I48.0 Retroperitoneal bleed R58 Pancytopenia D61.818 Neuropathy G62.9 Shoulder weakness R29.898 DVT prophylaxis Z29.9
[2020-06-16 10:42] LABS: Albumin 2.5 g/dL (3.8-4.8); Alpha 1 Globulin 0.3 g/dL (0.2-0.3); Alpha 2 Globulin 0.8 g/dL (0.5-0.9); Beta-1-Globulin 0.2 g/dL (0.4-0.6); Beta-2-Globulin 0.3 g/dL (0.2-0.5); Gamma Globulin 1.5 g/dL (0.8-1.7); Haptoglobin 228 mg/dL (43-212); Monoclonal Protein Band 1 1.4 g/dL (NONE DETECTED); Monoclonal Protein Band 2 DNR g/dL (NONE DETECTED); Monoclonal Protein Band 3 DNR g/dL (NONE DETECTED); Total Protein 5.5 g/dL (6.1-8.1)
[2020-06-18 10:37] LABS: Abnormal Protein Band 1 997 mg/24 h (NONE DETECTED); Abnormal Protein Band 2 34 mg/24 h (NONE DETECTED); Abnormal Protein Band 3 19 mg/24 h (NONE DETECTED); Creatinine, 24 hr Urine 0.94 g/24 h (0.50-2.15); Protein, Urine 24 Hour 1895 mg/24 h (<150); Ur Protein/Creatinine Rat mg/g 2015 mg/g creat (< OR = 114); Urine Protein/Creatinine Ratio 2.015 (< OR = 0.114)
--- NOTE | 2020-06-25 16:36 | Coding Query ---
CHRONIC KIDNEY DISEASE To promote full compliance with coding requirements relating to patient care, physician participation is requested in all cases of cannoneer uncertainty. Please assist us with the question(s) below: Coding Question(s): The record reflects the following clinical findings: CKD Please specify the known or suspected type by placing an "X" within the parenthesis (x). If other, please document type. Please document Staging if known: ( ) Stage I >90 Kidney damage with normal or elevated GFR. ( ) Stage II 60-89 Kidney damage with mildly decreased kidney function ( ) Stage III 30-59 Moderately decreased kidney function ( x ) Stage IV 15-29 Severely decreased kidney function ( ) Stage V <15 Renal failure (or dialysis) ( ) End Stage ( ) Unknown Thank you Yajaira JACOBS
== END 2020-06-13 16:00 | DRG 841 ==
LOC: ED 16:12 → SUATTDRO 19:07 → 2N 19:07

== ENCOUNTER 2020-09-02 14:01 | Inpatient (IN) ==
[2020-09-02] MEDS ORDERED: SODIUM CHLORIDE 0.9% 1000ML 1,000 ML IV ONE (14:25)
[2020-09-02] MEDS ORDERED: MAGNESIUM SULFATE / D5W 1 GM/100 ML BAG IV STA (14:27)
[2020-09-02 14:42] LABS: iSTAT Creatinine 2.9 mg/dl (0.6-1.3); iSTAT Hemoglobin 12.9 g/dl (14.0-18.0); iSTAT Ionized Calcium 1.04 mmol/l (1.12-1.32); iSTAT Potassium 3.5 mmol/L (3.3-5.0)
--- NOTE | 2020-09-02 14:45 | XRay Report ---
XR chest 1V portable CLINICAL HISTORY: SEPSIS COMPARISON STUDY: 06/11/2020 FINDINGS: The cardiac and mediastinal contours remain stable. There is no failure. There is no lobar consolidation. Bilateral nodular opacities likely related to old rib fractures.[The patient's known l ytic skeletal disease is difficult to visualized on this portable chest x-ray. IMPRESSION: No active disease in the chest. ACT 112: Negative or not required by law. Electronically signed by: Joselo Koch M.D. 09/02/2020 2:43 PM
[2020-09-02] MEDS: MAGNESIUM SULFATE / D5W 1 GM/100 ML BAG IV SCH ×4 (15:07→16:56)
[2020-09-02] MEDS: METOPROLOL TARTRATE 1 MG/ML VIAL IV PRN ×2 (15:12→15:44)
--- NOTE | 2020-09-02 15:38 | Emergency Department Note ---
Impression & Plan Fall, Anemia, Atrial fibrillation with rapid ventricular response ED Provider Note NAME: PATRIC MAYER AGE: 65 SEX: M : 1955 ARRIVES VIA: Ambulance INFORMANT: Patient, ED PROVIDER(S): Elvis Martinez MD CHIEF COMPLAINT: fall HPI: This 65-year-old male who presents to the emergency department after being found on the floor at his house. The patient has a complicated medical history including bone marrow transplant and paroxysmal A. fib. He also has a history of multiple myeloma. He follows up with the cancer center. The patient is complaining of right hip pain after the fall. The patient does not recall falling. He woke up on the floor and then had to pull himself to a phone. He describes the pain as an ache with no radiation. He has not taken anything for the pain prior to arrival. He reports laying still makes the pain worse however movement makes it better. ROS: See above HPI for pertinent positives & negatives. A total of 10 systems reviewed and were otherwise negative. PAST MEDICAL HISTORY: See Below PAST SURGICAL HISTORY: See Below FAMILY HISTORY: See Below SOCIAL HISTORY: See Below HOME MEDICATIONS: See Below ALLERGIES: See Below VITALS: See Below PHYSICAL EXAMINATION: VITAL SIGNS - Vital signs and nursing notes were reviewed. GENERAL - 65-year-old male appearing stated age who is in no acute distress. Communicates well with provider and answers questions appropriately. SKIN - Without rashes. HEAD - NC/AT. EYES - PERRL with EOMI bilaterally. Sclera anicteric. Palpebral conjunctiva pink and moist with no injection noted. EARS - No deformities of external structures noted on gross examination bilaterally. NOSE - Midline and without cyanosis. No epistaxis or purulent drainage noted. Septum midline without deviation or septal hematoma noted. MOUTH/OROPHARYNX - Without perioral cyanosis. Buccal mucosa pink and moist and without leukoplakia. Tongue midline with equal elevation of palate bilaterally. No tonsillar hypertrophy, erythema, or exudates noted. NECK - Neck with FROM. Supple to palpation. No nuchal rigidity. LUNGS - Chest wall symmetric without accessory muscle use, intercostals retractions, or central cyanosis. Normal vesicular breath sounds CTA B/L. No wheezes, rales, or rhonchi appreciated. CARDIAC - RRR with S1/S2. No murmur, rubs, or gallops appreciated. ABDOMEN - Abdominal contour without pulsations or visible masses. BS normoactive all four quadrants. No tenderness, palpable masses, hepatosple nomegaly, or ascites noted. EXTREMITIES - No clubbing or peripheral cyanosis. No pretibial edema present. +3/5 radial, posterior tibial, and dorsalis pedis pulses palpated throughout. +5/5 strength noted in UE/LE bilaterally. NEUROLOGIC - Cranial nerves II through XII grossly intact. Sensory intact to light touch throughout. Patellar reflexes +2/4. PSYCH - A&Ox3 and cooperates fully with examiner. Pt is very pleasant and interacts well with examiner. MEDICAL DECISION MAKING: Patient was seen and evaluated as above in room C3. Review was performed of nursing notes and vital signs. I did review pertinent previous visits and patient history. After obtaining a thorough history and physical examination the above work up was performed. This 65-year-old male who presents emergency department complaining of fall at home. Using shared medical decision making laboratory work was initiated. The patient does have a history of atrial fibrillation he was given 4 g of magnesium here in the emergency department and given multiple boluses of Lopressor. Repeat examination revealed improvement the patient's symptoms. The patient was found to be anemic and therefore was typed and screened and crossed for 1 unit of packed red blood cells. Due to the complex nature of the patient I did d iscuss his case with both oncology as well as medicine service who did agree to meet the patient. Patient was also started on broad-spectrum antibiotics including cefepime and vancomycin. While in the department, I personally reevaluated the patient several times and each time the patient was found to be resting comfortably. The patient was educated upon management, educated upon todays findings/results, educated upon importance of follow up from today's visit, educated upon symptoms in which to return, had questions answered prior to discharge, verbalized understanding, and was discharged home in good condition. An order was placed for continuous cardiac monitoring. The monitor shows a rate of 128 with afib rhythm. The patient was evaluated during a period of high volume and high acuity during the global COVID-19 pandemic, and that diagnosis was suspected/considered upon their initial presentation. Their evaluation, treatment and testing was consistent with current guidelines for patients who present with complaints or symptoms that may be related to COVID-19. Patient was seen while provider was wearing PPE. Triage Nursing notes reviewed. Prior medical records reviewed Vital Signs: reviewed and remarkable for no significant abnormalities Differential diagnosis: Infection, dehydration, metabolic abnormality, hypo/hyperglycemia, electrolyte disturbance, anemia, hypoxia, cardiac sources, intracerebral event, toxicologic, neurologic, as well as other pathologies. ER treatment provided: See below Diagnostics interpreted by me: ECG: EKG shows A. fib with RVR no ST elevation or depression QTC is 387 ventricular rate is 144 EKG is changed from previous 07/17/2020There is new onset A. fib Laboratory studies: As stated above and show below. Imaging studies: See below Consultation(s): Oncology Internal Medicine Critical Care: I have personally spent greater than 30 minutes of critical care time in the direct management of this patient. This includes bedside care, interpretation of diagnostic studies, and testing, discussion with consultants, patient, and family members, and other required patient management activities. This 30 minutes is in excess of all separately billable procedures. Past Med/Surg History Medical History Acute confusion Acute dehydration Acute hypotension Anxiety CKD (chronic kidney disease) Coagulase negative Staphylococcus bacteremia HTN (hypertension) Hypogammaglobulinemia (~05/2011) Hypomagnesemia Multiple myeloma Neuropathy BL FOOT; 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 CANCER TREATMENT Pancytopenia Paroxysmal atrial fibrillation PEA (Pulseless electrical activity) Pneumonia Prediabetes Retroperitoneal bleed Rhabdomyolysis Surgical History Bone marrow replaced by transplant History of bone marrow biopsy History of cataract surgery BL History of colonoscopy History of incision and drainage CYST - RT GROIN History of stem cell transplant History of surgery CYST REMOVED FROM COCCYX 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; 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 Family History Family/Other Family history of diabetes mellitus Social History Smoking Status: Never smoker Second Hand Exposure: No; Hx Alcohol Use: Yes Alcohol type: wine and hard liquor Hx Substance Use: No Preferred Language: Wallisian Communication Ability: Effective Victim Advocate Required: No Beliefs That Will Affect Care: None marital status: Single Current Living Situation: Alone [facility] Feels Safe at Home: Yes Safety Concerns: Feels Safe At This Time Assistive Devices: Walker Allergies Allergies Allergy/AdvReac Type Severity Reaction Status Date / Time epinephrine Allergy Intermediate STATES Verified 09/02/20 14:56 GETS A "WARNER" levofloxacin Allergy Intermediate RASH Verified 09/02/20 14:56 Sulfa (Sulfonamide Allergy Intermediate Rash Verified 09/02/20 14:56 Antibiotics) house dust Allergy Unknown Itchy Verified 09/02/20 14:56 Eye(s) Home Meds Home Medications Medication Instructions Recorded Confirmed acyclovir 400 mg PO BID 05/15/20 09/02/20 albuterol sulfate [Proventil HFA] 2 puff INHALATION Q6H PRN 05/15/20 09/02/20 amiodarone 200 mg PO DAILY 05/15/20 09/02/20 ascorbic acid (vitamin C) [Vitamin 500 mg PO DAILY 05/15/20 09/02/20 C] aspirin 81 mg PO DAILY 05/15/20 09/02/20 calcium carbonate-vitamin D3 1 tab PO DAILY 05/15/20 09/02/20 [Calcium 600 + D(3)] cyanocobalamin (vitamin B-12) 1,000 mcg PO DAILY 05/15/20 09/02/20 [Vitamin B-12] docusate sodium 100 mg PO DAILY PRN 05/15/20 09/02/20 fluticasone propionate [Flonase 1 spray INTRANASAL DAILY 05/15/20 09/02/20 Allergy Relief] guaifenesin [Mucinex] 600 mg PO BID 05/15/20 09/02/20 metoprolol tartrate 50 mg PO BID 05/15/20 09/02/20 mirtazapine 15 mg PO HS 05/15/20 09/02/20 multivitamin 1 tab PO DAILY 05/15/20 09/02/20 prochlorperazine maleate 5 mg PO Q8 PRN 05/15/20 09/02/[address] Q6H PRN 05/15/20 09/02/20 sucralfate [Carafate] 1 g PO ACHS 05/15/20 09/02/20 cetirizine 5 mg tablet 5 mg PO DAILY PRN 06/06/20 09/02/20 gabapentin 100 mg PO TID 06/11/20 09/02/20 omega [id number] oil 2 cap PO DAILY 06/11/20 09/02/20 doxepin 25 mg PO HS 07/17/20 09/02/20 pantoprazole 20 mg PO BID 07/17/20 09/02/20 dexamethasone 4 mg PO UD 09/02/20 09/02/20 lenalidomide [Revlimid] 25 mg PO UD 09/02/20 09/02/20 ondansetron HCl 8 mg PO UD 09/02/20 09/02/20 potassium chloride 20 meq PO DAILY 09/02/20 09/02/20 Results & Data (ED) Vital Signs Vital Signs - 24 hr 09/02/20 14:10 09/02/20 14:24 09/02/20 14:30 Temperature 36.8 C Temperature Source Oral Pulse Rate 151 H 153 H Pulse Rate from SpO2 Sensor 117 H Pulse Rhythm Irregular Respiratory Rate 15 21 Respiratory Effort / Characteristics Non-Labored Spontaneous Respiratory Depth Normal Respiratory Pattern Regular Blood Pressure 127/70 Blood Pressure Mean 89 Blood Pressure Position Lying Pulse Oximetry 99 98 100 Oxygen Delivery Method Room Air Room Air Sepsis Recent Fever Within 48 Hours No Sepsis New/Unexplained Change in Mental Status N/A Sepsis Action Taken by Nursing No Action Required 09/02/20 14:31 09/02/20 15:00 09/02/20 15:10 Temperature Temperature Source Pulse Rate 149 H 135 H 142 H Pulse Rate from SpO2 Sensor 125 H 116 H 131 H Pulse Rhythm Respiratory Rate 19 20 18 Respiratory Effort / Characteristics Respiratory Depth Respiratory Pattern Blood Pressure 139/82 116/84 Blood Pressure Mean 101 94 Blood Pressure Position Pulse Oximetry 94 100 97 Oxygen Delivery Method Sepsis Recent Fever Within 48 Hours Sepsis New/Unexplained Change in Mental Status Sepsis Action Taken by Nursing 09/02/20 15:12 09/02/20 15:44 Temperature Temperature Source Pulse Rate 141 H 128 H Pulse Rate from SpO2 Sensor Pulse Rhythm Respiratory Rate Respiratory Effort / Characteristics Respiratory Depth Respiratory Pattern Blood Pressure 116/84 117/66 Blood Pressure Mean Blood Pressure Position Pulse Oximetry Oxygen Delivery Method Sepsis Recent Fever Within 48 Hours Sepsis New/Unexplained Change in Mental Status Sepsis Action Taken by [facility] Medications Current Medication List: was personally reviewed by me Laboratory Data Attestation: I reviewed the patient's lab results. Result diagrams: 09/05/20 07:28 09/05/20 07:29 Lab Results 0409/02/20 09/02/20 Range/Units 14:24 14:24 14:24 WBC Cancelled RBC Cancelled Hgb Cancelled POC Hgb (14.0-18.0) g/dl Hct Cancelled POC Hct (42-52) % MCV Cancelled MCH Cancelled MCHC Cancelled RDW Std Deviation Cancelled RDW Coeff of Elvira Cancelled Plt Count Cancelled MPV Cancelled Immature Gran % (Auto) Cancelled Neut % (Auto) Cancelled Lymph % (Auto) Cancelled [place] % (Auto) Cancelled Eos % (Auto) Cancelled Baso % (Auto) Cancelled Neut # (Auto) Cancelled Lymph # (Auto) Cancelled [place] # (Auto) Cancelled Eos # (Auto) Cancelled Baso # (Auto) Cancelled Immature Gran # (Auto) Cancelled Absolute Nucleated RBC Cancelled Nucleated RBC % (auto) Cancelled Neutrophils % (Manual) Cancelled Band Neutrophils % Cancelled Lymphocytes % (Manual) Cancelled Prolymphocyte % Cancelled Reactive Lymphs % (Man) Cancelled Monocytes % (Manual) Cancelled Eosinophils % (Manual) Cancelled Basophils % (Manual) Cancelled Metamyelocytes % (Man) Cancelled Myelocytes % (Man) Cancelled Promyelocytes % (Man) Cancelled Blast Cells % (Manual) Cancelled Plasma Cell % (Manual) Cancelled Other Cells % Cancelled Nucleated RBC % Cancelled Neutrophils # (Manual) Cancelled Band Neutrophils # Cancelled Total Absolute Neuts Cancelled Lymphocytes # (Manual) Cancelled Prolymphocyte # Cancelled Reactive Lymphs # Cancelled Total Abs Lymphocytes Cancelled Monocytes # (Manual) Cancelled Eosinophils # (Manual) Cancelled Basophils # (Manual) Cancelled Metamyelocytes # (Man) Cancelled Myelocytes # (Manual) Cancelled Promyelocytes # (Man) Cancelled Blast Cells # (Man) Cancelled Plasma Cell # (Manual) Cancelled Other Cells # Cancelled Nucleated RBCs # (Man) Cancelled Hypersegmented Neuts Cancelled Hyposegmented Neuts Cancelled Hypogranular Neuts Cancelled Large Granular Lymphs Cancelled # Lrg Granular Lymphs Cancelled Hairy Cells Cancelled Smudge Cells Cancelled Toxic Granulation Cancelled Toxic Vacuolation Cancelled Dohle Bodies Cancelled Jefferson Rods Cancelled Platelet Estimate Cancelled Hypogranular Platelets Cancelled Clumped Platelets Cancelled Giant Platelets Cancelled Platelet Satelliting Cancelled RBC Morphology Cancelled Polychromasia Cancelled Hypochromasia Cancelled Poikilocytosis Cancelled Basophilic Stippling Cancelled Anisocytosis Cancelled Microcytosis Cancelled Macrocytosis Cancelled Spherocytes Cancelled Pappenheimer Bodies Cancelled Sickle Cells Cancelled Target Cells Cancelled Tear Drop Cells Cancelled Ovalocytes Cancelled Stomatocytes Cancelled Weaver-[place] Bodies Cancelled Echinocytes Cancelled Acanthocytes (Spur) Cancelled Rouleaux Cancelled RBC Agglutinates Cancelled Schistocytes Cancelled RBC Morph Comment Cancelled ESR Cancelled Sezary Cell Cancelled PT (9.0-12.0) Seconds INR (0.9-1.1) APTT (21.0-31.0) Seconds PTT Ratio POC Sodium (135-144) mmol/L Sodium (136-145) mmol/L POC Potassium (3.3-5.0) mmol/L Potassium (3.5-5.1) mmol/L POC Chloride (101-112) mmol/L Chloride (98-107) mmol/L Carbon Dioxide (21-32) mmol/L POC Total CO2 (24-31) mmol/L Anion Gap (3-11) POC Anion Gap (16-25) mmol/L POC BUN (7-18) mg/dl BUN (7-18) mg/dl Creatinine (0.6-1.4) mg/dl POC Creatinine (0.6-1.3) mg/dl Est Cr Clr Drug Dosing ml/min Est GFR ( Amer) Est GFR (Non-Af Amer) BUN/Creatinine Ratio (10-20) Glucose (70-99) mg/dl POC Glucose (other) (70-99) mg/dl Lactate (0.4-2.0) mmol/L Calcium (8.5-10.1) mg/dl POC Ioniz Calcium Terrell (1.12-1.32) mmol/l Magnesium (1.8-2.4) mg/dl Total Bilirubin (0.2-1) mg/dl AST (15-37) U/L ALT (12-78) U/L Alkaline Phosphatase (45-117) U/L Lactate Dehydrogenase (87-241) U/L Total Creatine Kinase (39-308) U/L CK-MB (CK-2) (0.5-3.6) ng/ml CK/CKMB % Calc (0-3.0) Troponin I (0-0.045) ng/ml C-Reactive Protein (0-0.29) mg/dl Total Protein (6.4-8.2) gm/dl Albumin (3.4-5.0) gm/dl Globulin (2.5-4.0) gm/dl Albumin/Globulin Ratio (0.9-2) Procalcitonin (0-0.5) ng/ml Urine Color Urine Appearance (Clear) Urine pH (4.5-7.5) Ur Specific [place] (1.000-1.030) Urine Protein (Negative) Urine Glucose (UA) (Negative) Urine Ketones (Negative) Urine Blood (Negative) Urine Nitrite (Negative) Urine Bilirubin (Negative) Urine Urobilinogen (Negative) Ur Leukocyte Esterase (Negative) Urine WBC (Auto) (0-5) /hpf Urine RBC (Auto) (0-4) /hpf U Hyaline Cast (Auto) (0-5) /lpf U Epithel Cells (Auto) (0-5) /lpf Urine Bacteria (Auto) (Negative) Granular Casts (0) /lpf Urine Yeast COVID-19 Eval Order SARS-CoV-2 (PCR) (Negative) Influenza Type A (PCR) (Neg) Influenza Type B (PCR) (Neg) RSV (RT-PCR) (Neg) Blood Type O Positive Antibody Screen NEGATIVE Crossmatch See Detail 09/02/20 09/02/20 09/02/20 Range/Units 14:24 14:24 14:24 WBC RBC Hgb POC Hgb (14.0-18.0) g/dl Hct POC Hct (42-52) % MCV MCH MCHC RDW Std Deviation RDW Coeff of Elvira Plt Count MPV Immature Gran % (Auto) Neut % (Auto) Lymph % (Auto) [place] % (Auto) Eos % (Auto) Baso % (Auto) Neut # (Auto) Lymph # (Auto) [place] # (Auto) Eos # (Auto) Baso # (Auto) Immature Gran # (Auto) Absolute Nucleated RBC Nucleated RBC % (auto) Neutrophils % (Manual) Band Neutrophils % Lymphocytes % (Manual) Prolymphocyte % Reactive Lymphs % (Man) Monocytes % (Manual) Eosinophils % (Manual) Basophils % (Manual) Metamyelocytes % (Man) Myelocytes % (Man) Promyelocytes % (Man) Blast Cells % (Manual) Plasma Cell % (Manual) Other Cells % Nucleated RBC % Neutrophils # (Manual) Band Neutrophils # Total Absolute Neuts Lymphocytes # (Manual) Prolymphocyte # Reactive Lymphs # Total Abs Lymphocytes Monocytes # (Manual) Eosinophils # (Manual) Basophils # (Manual) Metamyelocytes # (Man) Myelocytes # (Manual) Promyelocytes # (Man) Blast Cells # (Man) Plasma Cell # (Manual) Other Cells # Nucleated RBCs # (Man) Hypersegmented Neuts Hyposegmented Neuts Hypogranular Neuts Large Granular Lymphs # Lrg Granular Lymphs Hairy Cells Smudge Cells Toxic Granulation Toxic Vacuolation Dohle Bodies Jefferson Rods Platelet Estimate Hypogranular Platelets Clumped Platelets Giant Platelets Platelet Satelliting RBC Morphology Polychromasia Hypochromasia Poikilocytosis Basophilic Stippling Anisocytosis Microcytosis Macrocytosis Spherocytes Pappenheimer Bodies Sickle Cells Target Cells Tear Drop Cells Ovalocytes Stomatocytes Weaver-[place]em[place] Bodies Echinocytes Acanthocytes (Spur) Rouleaux RBC Agglutinates Schistocytes RBC Morph Comment ESR Sezary Cell PT (9.0-12.0) Seconds INR (0.9-1.1) APTT (21.0-31.0) Seconds PTT Ratio POC Sodium (135-144) mmol/L Sodium (136-145) mmol/L POC Potassium (3.3-5.0) mmol/L Potassium (3.5-5.1) mmol/L POC Chloride (101-112) mmol/L Chloride (98-107) mmol/L Carbon Dioxide (21-32) mmol/L POC Total CO2 (24-31) mmol/L Anion Gap (3-11) POC Anion Gap (16-25) mmol/L POC BUN (7-18) mg/dl BUN (7-18) mg/dl Creatinine (0.6-1.4) mg/dl POC Creatinine (0.6-1.3) mg/dl Est Cr Clr Drug Dosing ml/min Est GFR ( Amer) Est GFR (Non-Af Amer) BUN/Creatinine Ratio (10-20) Glucose (70-99) mg/dl POC Glucose (other) (70-99) mg/dl Lactate (0.4-2.0) mmol/L Calcium (8.5-10.1) mg/dl POC Ioniz Calcium Terrell (1.12-1.32) mmol/l Magnesium (1.8-2.4) mg/dl Total Bilirubin (0.2-1) mg/dl AST (15-37) U/L ALT (12-78) U/L Alkaline Phosphatase (45-117) U/L Lactate Dehydrogenase (87-241) U/L Total Creatine Kinase (39-308) U/L CK-MB (CK-2) (0.5-3.6) ng/ml CK/CKMB % Calc (0-3.0) Troponin I (0-0.045) ng/ml C-Reactive Protein (0-0.29) mg/dl Total Protein (6.4-8.2) gm/dl Albumin (3.4-5.0) gm/dl Globulin (2.5-4.0) gm/dl Albumin/Globulin Ratio (0.9-2) Procalcitonin (0-0.5) ng/ml Urine Color Urine Appearance (Clear) Urine pH (4.5-7.5) Ur Specific [place] (1.000-1.030) Urine Protein (Negative) Urine Glucose (UA) (Negative) Urine Ketones (Negative) Urine Blood (Negative) Urine Nitrite (Negative) Urine Bilirubin (Negative) Urine Urobilinogen (Negative) Ur Leukocyte Esterase (Negative) Urine WBC (Auto) (0-5) /hpf Urine RBC (Auto) (0-4) /hpf U Hyaline Cast (Auto) (0-5) /lpf U Epithel Cells (Auto) (0-5) /lpf Urine Bacteria (Auto) (Negative) Granular Casts (0) /lpf Urine Yeast COVID-19 Eval Order SARS-CoV-2 (PCR) (Negative) Influenza Type A (PCR) (Neg) Influenza Type B (PCR) (Neg) RSV (RT-PCR) (Neg) Blood Type Antibody Screen Crossmatch 09/02/20 09/02/20 09/02/20 Range/Units 14:30 15:13 15:41 WBC RBC Hgb POC Hgb 12.9 L (14.0-18.0) g/dl Hct POC Hct 38 L (42-52) % MCV MCH MCHC RDW Std Deviation RDW Coeff of Elvira Plt Count MPV Immature Gran % (Auto) Neut % (Auto) Lymph % (Auto) [place] % (Auto) Eos % (Auto) Baso % (Auto) Neut # (Auto) Lymph # (Auto) [place] # (Auto) Eos # (Auto) Baso # (Auto) Immature Gran # (Auto) Absolute Nucleated RBC Nucleated RBC % (auto) Neutrophils % (Manual) Band Neutrophils % Lymphocytes % (Manual) Prolymphocyte % Reactive Lymphs % (Man) Monocytes % (Manual) Eosinophils % (Manual) Basophils % (Manual) Metamyelocytes % (Man) Myelocytes % (Man) Promyelocytes % (Man) Blast Cells % (Manual) Plasma Cell % (Manual) Other Cells % Nucleated RBC % Neutrophils # (Manual) Band Neutrophils # Total Absolute Neuts Lymphocytes # (Manual) Prolymphocyte # Reactive Lymphs # Total Abs Lymphocytes Monocytes # (Manual) Eosinophils # (Manual) Basophils # (Manual) Metamyelocytes # (Man) Myelocytes # (Manual) Promyelocytes # (Man) Blast Cells # (Man) Plasma Cell # (Manual) Other Cells # Nucleated RBCs # (Man) Hypersegmented Neuts Hyposegmented Neuts Hypogranular Neuts Large Granular Lymphs # Lrg Granular Lymphs Hairy Cells Smudge Cells Toxic Granulation Toxic Vacuolation Dohle Bodies Jefferson Rods Platelet Estimate Hypogranular Platelets Clumped Platelets Giant Platelets Platelet Satelliting RBC Morphology Polychromasia Hypochromasia Poikilocytosis Basophilic Stippling Anisocytosis Microcytosis Macrocytosis Spherocytes Pappenheimer Bodies Sickle Cells Target Cells Tear Drop Cells Ovalocytes Stomatocytes Weaver-[place] Bodies Echinocytes Acanthocytes (Spur) Rouleaux RBC Agglutinates Schistocytes RBC Morph Comment ESR Sezary Cell PT (9.0-12.0) Seconds INR (0.9-1.1) APTT (21.0-31.0) Seconds PTT Ratio POC Sodium 138 (135-144) mmol/L Sodium (136-145) mmol/L POC Potassium 3.5 (3.3-5.0) mmol/L Potassium (3.5-5.1) mmol/L POC Chloride 106 (101-112) mmol/L Chloride (98-107) mmol/L Carbon Dioxide (21-32) mmol/L POC Total CO2 18 L (24-31) mmol/L Anion Gap (3-11) POC Anion Gap 18.0 (16-25) mmol/L POC BUN 25 H (7-18) mg/dl BUN (7-18) mg/dl Creatinine (0.6-1.4) mg/dl POC Creatinine 2.9 H (0.6-1.3) mg/dl Est Cr Clr Drug Dosing ml/min Est GFR ( Amer) Est GFR (Non-Af Amer) BUN/Creatinine Ratio (10-20) Glucose (70-99) mg/dl POC Glucose (other) 89 (70-99) mg/dl Lactate 2.2 H* (0.4-2.0) mmol/L Calcium (8.5-10.1) mg/dl POC Ioniz Calcium Terrell 1.04 L (1.12-1.32) mmol/l Magnesium (1.8-2.4) mg/dl Total Bilirubin (0.2-1) mg/dl AST (15-37) U/L ALT (12-78) U/L Alkaline Phosphatase (45-117) U/L Lactate Dehydrogenase 321 H (87-241) U/L Total Creatine Kinase (39-308) U/L CK-MB (CK-2) (0.5-3.6) ng/ml CK/CKMB % Calc (0-3.0) Troponin I (0-0.045) ng/ml C-Reactive Protein (0-0.29) mg/dl Total Protein (6.4-8.2) gm/dl Albumin (3.4-5.0) gm/dl Globulin (2.5-4.0) gm/dl Albumin/Globulin Ratio (0.9-2) Procalcitonin (0-0.5) ng/ml Urine Color Urine Appearance (Clear) Urine pH (4.5-7.5) Ur Specific [place] (1.000-1.030) Urine Protein (Negative) Urine Glucose (UA) (Negative) Urine Ketones (Negative) Urine Blood (Negative) Urine Nitrite (Negative) Urine Bilirubin (Negative) Urine Urobilinogen (Negative) Ur Leukocyte Esterase (Negative) Urine WBC (Auto) (0-5) /hpf Urine RBC (Auto) (0-4) /hpf U Hyaline Cast (Auto) (0-5) /lpf U Epithel Cells (Auto) (0-5) /lpf Urine Bacteria (Auto) (Negative) Granular Casts (0) /lpf Urine Yeast COVID-19 Eval Order SARS-CoV-2 (PCR) (Negative) Influenza Type A (PCR) (Neg) Influenza Type B (PCR) (Neg) RSV (RT-PCR) (Neg) Blood Type Antibody Screen Crossmatch 09/02/20 09/02/20 09/02/20 Range/Units 15:41 15:41 15:41 WBC 1.08 L RBC 2.11 L Hgb 7.5 L POC Hgb (14.0-18.0) g/dl Hct 21.0 L POC Hct (42-52) % MCV 99.5 MCH 35.5 H MCHC 35.7 RDW Std Deviation 73.0 H RDW Coeff of Elvira 19.7 H Plt Count 31 L MPV Immature Gran % (Auto) 2.8 Neut % (Auto) 59.2 Lymph % (Auto) 28.7 [place] % (Auto) 9.3 Eos % (Auto) 0.0 Baso % (Auto) 0.0 Neut # (Auto) 0.64 L* Lymph # (Auto) 0.31 L [place] # (Auto) 0.10 L Eos # (Auto) 0.00 Baso # (Auto) 0.00 Immature Gran # (Auto) 0.03 H Absolute Nucleated RBC Nucleated RBC % (auto) Neutrophils % (Manual) Band Neutrophils % Lymphocytes % (Manual) Prolymphocyte % Reactive Lymphs % (Man) Monocytes % (Manual) Eosinophils % (Manual) Basophils % (Manual) Metamyelocytes % (Man) Myelocytes % (Man) Promyelocytes % (Man) Blast Cells % (Manual) Plasma Cell % (Manual) Other Cells % Nucleated RBC % Neutrophils # (Manual) Band Neutrophils # Total Absolute Neuts Lymphocytes # (Manual) Prolymphocyte # Reactive Lymphs # Total Abs Lymphocytes Monocytes # (Manual) Eosinophils # (Manual) Basophils # (Manual) Metamyelocytes # (Man) Myelocytes # (Manual) Promyelocytes # (Man) Blast Cells # (Man) Plasma Cell # (Manual) Other Cells # Nucleated RBCs # (Man) Hypersegmented Neuts Hyposegmented Neuts Hypogranular Neuts Large Granular Lymphs # Lrg Granular Lymphs Hairy Cells Smudge Cells Toxic Granulation Toxic Vacuolation Dohle Bodies Jefferson Rods Platelet Estimate Decreased L Hypogranular Platelets Clumped Platelets Giant Platelets Platelet Satelliting RBC Morphology Polychromasia Hypochromasia Poikilocytosis Basophilic Stippling Anisocytosis Present Microcytosis Macrocytosis Spherocytes Pappenheimer Bodies Sickle Cells Target Cells Tear Drop Cells Ovalocytes Stomatocytes Weaver-Nemacolin Bodies Echinocytes Acanthocytes (Spur) Rouleaux RBC Agglutinates Schistocytes RBC Morph Comment ESR 13 Sezary Cell PT 10.9 (9.0-12.0) Seconds INR 1.1 (0.9-1.1) APTT 26.4 (21.0-31.0) Seconds PTT Ratio 1.0 POC Sodium (135-144) mmol/L Sodium (136-145) mmol/L POC Potassium (3.3-5.0) mmol/L Potassium (3.5-5.1) mmol/L POC Chloride (101-112) mmol/L Chloride (98-107) mmol/L Carbon Dioxide (21-32) mmol/L POC Total CO2 (24-31) mmol/L Anion Gap (3-11) POC Anion Gap (16-25) mmol/L POC BUN (7-18) mg/dl BUN (7-18) mg/dl Creatinine (0.6-1.4) mg/dl POC Creatinine (0.6-1.3) mg/dl Est Cr Clr Drug Dosing ml/min Est GFR ( Amer) Est GFR (Non-Af Amer) BUN/Creatinine Ratio (10-20) Glucose (70-99) mg/dl POC Glucose (other) (70-99) mg/dl Lactate (0.4-2.0) mmol/L Calcium (8.5-10.1) mg/dl POC Ioniz Calcium Terrell (1.12-1.32) mmol/l Magnesium (1.8-2.4) mg/dl Total Bilirubin (0.2-1) mg/dl AST (15-37) U/L ALT (12-78) U/L Alkaline Phosphatase (45-117) U/L Lactate Dehydrogenase (87-241) U/L Total Creatine Kinase (39-308) U/L CK-MB (CK-2) (0.5-3.6) ng/ml CK/CKMB % Calc (0-3.0) Troponin I (0-0.045) ng/ml C-Reactive Protein (0-0.29) mg/dl Total Protein (6.4-8.2) gm/dl Albumin (3.4-5.0) gm/dl Globulin (2.5-4.0) gm/dl Albumin/Globulin Ratio (0.9-2) Procalcitonin (0-0.5) ng/ml Urine Color Urine Appearance (Clear) Urine pH (4.5-7.5) Ur Specific [place] (1.000-1.030) Urine Protein (Negative) Urine Glucose (UA) (Negative) Urine Ketones (Negative) Urine Blood (Negative) Urine Nitrite (Negative) Urine Bilirubin (Negative) Urine Urobilinogen (Negative) Ur Leukocyte Esterase (Negative) Urine WBC (Auto) (0-5) /hpf Urine RBC (Auto) (0-4) /hpf U Hyaline Cast (Auto) (0-5) /lpf U Epithel Cells (Auto) (0-5) /lpf Urine Bacteria (Auto) (Negative) Granular Casts (0) /lpf Urine Yeast COVID-19 Eval Order SARS-CoV-2 (PCR) (Negative) Influenza Type A (PCR) (Neg) Influenza Type B (PCR) (Neg) RSV (RT-PCR) (Neg) Blood Type Antibody Screen Crossmatch 09/02/20 09/02/20 09/02/20 Range/Units 15:41 15:41 15:48 WBC RBC Hgb POC Hgb (14.0-18.0) g/dl Hct POC Hct (42-52) % MCV MCH MCHC RDW Std Deviation RDW Coeff of Elvira Plt Count MPV Immature Gran % (Auto) Neut % (Auto) Lymph % (Auto) [place] % (Auto) Eos % (Auto) Baso % (Auto) Neut # (Auto) Lymph # (Auto) [place] # (Auto) Eos # (Auto) Baso # (Auto) Immature Gran # (Auto) Absolute Nucleated RBC Nucleated RBC % (auto) Neutrophils % (Manual) Band Neutrophils % Lymphocytes % (Manual) Prolymphocyte % Reactive Lymphs % (Man) Monocytes % (Manual) Eosinophils % (Manual) Basophils % (Manual) Metamyelocytes % (Man) Myelocytes % (Man) Promyelocytes % (Man) Blast Cells % (Manual) Plasma Cell % (Manual) Other Cells % Nucleated RBC % Neutrophils # (Manual) Band Neutrophils # Total Absolute Neuts Lymphocytes # (Manual) Prolymphocyte # Reactive Lymphs # Total Abs Lymphocytes Monocytes # (Manual) Eosinophils # (Manual) Basophils # (Manual) Metamyelocytes # (Man) Myelocytes # (Manual) Promyelocytes # (Man) Blast Cells # (Man) Plasma Cell # (Manual) Other Cells # Nucleated RBCs # (Man) Hypersegmented Neuts Hyposegmented Neuts Hypogranular Neuts Large Granular Lymphs # Lrg Granular Lymphs Hairy Cells Smudge Cells Toxic Granulation Toxic Vacuolation Dohle Bodies Jefferson Rods Platelet Estimate Hypogranular Platelets Clumped Platelets Giant Platelets Platelet Satelliting RBC Morphology Polychromasia Hypochromasia Poikilocytosis Basophilic Stippling Anisocytosis Microcytosis Macrocytosis Spherocytes Pappenheimer Bodies Sickle Cells Target Cells Tear Drop Cells Ovalocytes Stomatocytes Weaver-Nem[place]olin Bodies Echinocytes Acanthocytes (Spur) Rouleaux RBC Agglutinates Schistocytes RBC Morph Comment ESR Sezary Cell PT (9.0-12.0) Seconds INR (0.9-1.1) APTT (21.0-31.0) Seconds PTT Ratio POC Sodium (135-144) mmol/L Sodium 140 (136-145) mmol/L POC Potassium (3.3-5.0) mmol/L Potassium 3.4 L (3.5-5.1) mmol/L POC Chloride (101-112) mmol/L Chloride 111 H (98-107) mmol/L Carbon Dioxide 21 (21-32) mmol/L POC Total CO2 (24-31) mmol/L Anion Gap 8.0 (3-11) POC Anion Gap (16-25) mmol/L POC BUN (7-18) mg/dl BUN 26 H (7-18) mg/dl Creatinine 2.50 H (0.6-1.4) mg/dl POC Creatinine (0.6-1.3) mg/dl Est Cr Clr Drug Dosing 33.2 ml/min Est GFR ( Amer) 30.5 Est GFR (Non-Af Amer) 26.3 BUN/Creatinine Ratio 10.4 (10-20) Glucose 90 (70-99) mg/dl POC Glucose (other) (70-99) mg/dl Lactate (0.4-2.0) mmol/L Calcium 7.1 L D (8.5-10.1) mg/dl POC Ioniz Calcium Terrell (1.12-1.32) mmol/l Magnesium 2.0 (1.8-2.4) mg/dl Total Bilirubin 0.8 (0.2-1) mg/dl AST 104 H (15-37) U/L ALT 62 (12-78) U/L Alkaline Phosphatase 80 (45-117) U/L Lactate Dehydrogenase (87-241) U/L Total Creatine Kinase 2078 H (39-308) U/L CK-MB (CK-2) 13.3 H (0.5-3.6) ng/ml CK/CKMB % Calc 0.6 (0-3.0) Troponin I 0.345 H* (0-0.045) ng/ml C-Reactive Protein 8.04 H (0-0.29) mg/dl Total Protein 6.0 L (6.4-8.2) gm/dl Albumin 2.2 L (3.4-5.0) gm/dl Globulin 3.8 (2.5-4.0) gm/dl Albumin/Globulin Ratio 0.6 L (0.9-2) Procalcitonin 0.27 (0-0.5) ng/ml Urine Color Urine Appearance (Clear) Urine pH (4.5-7.5) Ur Specific [place] (1.000-1.030) Urine Protein (Negative) Urine Glucose (UA) (Negative) Urine Ketones (Negative) Urine Blood (Negative) Urine Nitrite (Negative) Urine Bilirubin (Negative) Urine Urobilinogen (Negative) Ur Leukocyte Esterase (Negative) Urine WBC (Auto) (0-5) /hpf Urine RBC (Auto) (0-4) /hpf U Hyaline Cast (Auto) (0-5) /lpf U Epithel Cells (Auto) (0-5) /lpf Urine Bacteria (Auto) (Negative) Granular Casts (0) /lpf Urine Yeast COVID-19 Eval Order [facility]FluRsv at [facility] SARS-CoV-2 (PCR) (Negative) Influenza Type A (PCR) (Neg) Influenza Type B (PCR) (Neg) RSV (RT-PCR) (Neg) Blood Type Antibody Screen Crossmatch 09/02/20 09/02/20 09/02/20 Range/Units 15:48 17:00 18:02 WBC RBC Hgb POC Hgb (14.0-18.0) g/dl Hct POC Hct (42-52) % MCV MCH MCHC RDW Std Deviation RDW Coeff of Elvira Plt Count MPV Immature Gran % (Auto) Neut % (Auto) Lymph % (Auto) [place] % (Auto) Eos % (Auto) Baso % (Auto) Neut # (Auto) Lymph # (Auto) [place] # (Auto) Eos # (Auto) Baso # (Auto) Immature Gran # (Auto) Absolute Nucleated RBC Nucleated RBC % (auto) Neutrophils % (Manual) Band Neutrophils % Lymphocytes % (Manual) Prolymphocyte % Reactive Lymphs % (Man) Monocytes % (Manual) Eosinophils % (Manual) Basophils % (Manual) Metamyelocytes % (Man) Myelocytes % (Man) Promyelocytes % (Man) Blast Cells % (Manual) Plasma Cell % (Manual) Other Cells % Nucleated RBC % Neutrophils # (Manual) Band Neutrophils # Total Absolute Neuts Lymphocytes # (Manual) Prolymphocyte # Reactive Lymphs # Total Abs Lymphocytes Monocytes # (Manual) Eosinophils # (Manual) Basophils # (Manual) Metamyelocytes # (Man) Myelocytes # (Manual) Promyelocytes # (Man) Blast Cells # (Man) Plasma Cell # (Manual) Other Cells # Nucleated RBCs # (Man) Hypersegmented Neuts Hyposegmented Neuts Hypogranular Neuts Large Granular Lymphs # Lrg Granular Lymphs Hairy Cells Smudge Cells Toxic Granulation Toxic Vacuolation Dohle Bodies Jefferson Rods Platelet Estimate Hypogranular Platelets Clumped Platelets Giant Platelets Platelet Satelliting RBC Morphology Polychromasia Hypochromasia Poikilocytosis Basophilic Stippling Anisocytosis Microcytosis Macrocytosis Spherocytes Pappenheimer Bodies Sickle Cells Target Cells Tear Drop Cells Ovalocytes Stomatocytes Weaver-Nemacolin Bodies Echinocytes Acanthocytes (Spur) Rouleaux RBC Agglutinates Schistocytes RBC Morph Comment ESR Sezary Cell PT (9.0-12.0) Seconds INR (0.9-1.1) APTT (21.0-31.0) Seconds PTT Ratio POC Sodium (135-144) mmol/L Sodium (136-145) mmol/L POC Potassium (3.3-5.0) mmol/L Potassium (3.5-5.1) mmol/L POC Chloride (101-112) mmol/L Chloride (98-107) mmol/L Carbon Dioxide (21-32) mmol/L POC Total CO2 (24-31) mmol/L Anion Gap (3-11) POC Anion Gap (16-25) mmol/L POC BUN (7-18) mg/dl BUN (7-18) mg/dl Creatinine (0.6-1.4) mg/dl POC Creatinine (0.6-1.3) mg/dl Est Cr Clr Drug Dosing ml/min Est GFR ( Amer) Est GFR (Non-Af Amer) BUN/Creatinine Ratio (10-20) Glucose (70-99) mg/dl POC Glucose (other) (70-99) mg/dl Lactate 1.6 (0.4-2.0) mmol/L Calcium (8.5-10.1) mg/dl POC Ioniz Calcium Terrell (1.12-1.32) mmol/l Magnesium (1.8-2.4) mg/dl Total Bilirubin (0.2-1) mg/dl AST (15-37) U/L ALT (12-78) U/L Alkaline Phosphatase (45-117) U/L Lactate Dehydrogenase (87-241) U/L Total Creatine Kinase (39-308) U/L CK-MB (CK-2) (0.5-3.6) ng/ml CK/CKMB % Calc (0-3.0) Troponin I (0-0.045) ng/ml C-Reactive Protein (0-0.29) mg/dl Total Protein (6.4-8.2) gm/dl Albumin (3.4-5.0) gm/dl Globulin (2.5-4.0) gm/dl Albumin/Globulin Ratio (0.9-2) Procalcitonin (0-0.5) ng/ml Urine Color Yellow Urine Appearance Clear (Clear) Urine pH 6.0 (4.5-7.5) Ur Specific [place] 1.016 (1.000-1.030) Urine Protein 2+ H (Negative) Urine Glucose (UA) Trace H (Negative) Urine Ketones Negative (Negative) Urine Blood 3+ H (Negative) Urine Nitrite Negative (Negative) Urine Bilirubin Negative (Negative) Urine Urobilinogen Negative (Negative) Ur Leukocyte Esterase Negative (Negative) Urine WBC (Auto) 1-5 (0-5) /hpf Urine RBC (Auto) 0-4 (0-4) /hpf U Hyaline Cast (Auto) 10-30 H (0-5) /lpf U Epithel Cells (Auto) 20-30 H (0-5) /lpf Urine Bacteria (Auto) Negative (Negative) Granular Casts 10-20 H (0) /lpf Urine Yeast Not Reportable COVID-19 Eval Order SARS-CoV-2 (PCR) NEGATIVE (Negative) Influenza Type A (PCR) Negative (Neg) Influenza Type B (PCR) Negative (Neg) RSV (RT-PCR) Negative (Neg) Blood Type Antibody Screen Crossmatch Administered Medications Acyclovir (Acyclovir 400 Mg Tab) 400 mg PO BID MIRLANDE Stop: 10/02/20 20:59 Last Admin: 09/05/20 08:11 Dose: 400 mg Documented by: [id number] Admin: 09/04/20 20:42 Dose: 400 mg Documented by: [id number] Admin: 09/04/20 07:51 Dose: 400 mg Documented by: [id number] Admin: 09/03/20 20:54 Dose: 400 mg Documented by: [id number] Admin: 09/03/20 07:55 Dose: 400 mg Documented by: [id number] Admin: 09/02/20 22:41 Dose: 400 mg Documented by: [id number] Amiodarone HCl (Amiodarone 200 Mg Tab) 200 mg PO DAILY MIRLANDE Stop: 10/02/20 20:51 Last Admin: 09/02/20 23:18 Dose: Not Given Documented by: [id number] Doxepin HCl (Doxepin Hcl 25 Mg Capsule) 25 mg PO HS MIRLANDE Stop: 10/02/20 20:59 Last Admin: 09/04/20 20:42 Dose: 25 mg Documented by: [id number] Admin: 09/03/20 20:54 Dose: 25 mg Documented by: [id number] Admin: 09/02/20 22:41 Dose: 25 mg Documented by: [id number] Fluticasone Propionate (Fluticasone Propionate Na Spr 16 Gm Btl) 1 sprays NA DAILY MIRLANDE Stop: 10/03/20 08:59 Last Admin: 09/05/20 08:11 Dose: 1 sprays Documented by: [id number] Admin: 09/04/20 07:51 Dose: 1 sprays Documented by: [id number] Admin: 09/03/20 07:55 Dose: 1 sprays Documented by: [id number] Gabapentin (Gabapentin 100 Mg Cap) 100 mg PO TID MIRLANDE Stop: 10/02/20 20:59 Last Admin: 09/05/20 08:11 Dose: 100 mg Documented by: [id number] Admin: 09/04/20 20:42 Dose: 100 mg Documented by: [id number] Admin: 09/04/20 13:59 Dose: 100 mg Documented by: [id number] Admin: 09/04/20 07:51 Dose: 100 mg Documented by: [id number] Admin: 09/03/20 20:54 Dose: 100 mg Documented by: [id number] Admin: 09/03/20 14:19 Dose: 100 mg Documented by: [id number] Admin: 09/03/20 09:09 Dose: 100 mg Documented by: [id number] Admin: 09/02/20 22:41 Dose: 100 mg Documented by: [id number] Guaifenesin (Guaifenesin 600 Mg Tabcr) 600 mg PO BID MIRLANDE Stop: 10/02/20 20:59 Last Admin: 09/05/20 08:11 Dose: 600 mg Documented by: [id number] Admin: 09/04/20 20:43 Dose: 600 mg Documented by: [id number] Admin: 09/04/20 07:52 Dose: 600 mg Documented by: [id number] Admin: 09/03/20 20:55 Dose: 600 mg Documented by: [id number] Admin: 09/03/20 07:55 Dose: 600 mg Documented by: [id number] Admin: 09/02/20 22:44 Dose: 600 mg Documented by: [id number] Metoprolol Tartrate (Metoprolol Tartrate 50 Mg Tab) 50 mg PO BID MIRLANDE Stop: 10/02/20 20:59 Last Admin: 09/02/20 22:44 Dose: 50 mg Documented by: [id number] Metoprolol Tartrate (Metoprolol Tartrate 25 Mg Tab) 25 mg PO QAM MIRLANDE Stop: 10/04/20 08:59 Last Admin: 09/05/20 08:11 Dose: 25 mg Documented by: [id number] Admin: 09/04/20 07:55 Dose: 25 mg Documented by: [id number] Mirtazapine (Mirtazapine Tab 15 Mg Tab) 15 mg PO HS MIRLANDE Stop: 10/02/20 20:59 Last Admin: 09/04/20 20:41 Dose: Not Given Documented by: [id number] Admin: 09/03/20 20:55 Dose: Not Given Documented by: [id number] Admin: 09/02/20 22:54 Dose: Not Given Documented by: [id number] Pantoprazole Sodium (Pantoprazole 40 Mg Tab) 40 mg PO BID MIRLANDE Stop: 10/04/20 20:59 Last Admin: 09/05/20 08:11 Dose: 40 mg Documented by: [id number] Admin: 09/04/20 20:43 Dose: 40 mg Documented by: [id number] Potassium Chloride (Potassium Chloride Crtab 20 Meq Tabcr) 20 meq PO DAILY MIRLANDE Stop: 10/03/20 08:59 Last Admin: 09/05/20 08:11 Dose: 20 meq Documented by: [id number] Admin: 09/04/20 07:51 Dose: 20 meq Documented by: [id number] Admin: 09/03/20 07:55 Dose: 20 meq Documented by: [id number] Sucralfate (Sucralfate 1 Gm Tab) 1 gm PO ACHS MIRLANDE Stop: 10/02/20 20:59 Last Admin: 09/05/20 12:28 Dose: 1 gm Documented by: [id number] Admin: 09/05/20 08:11 Dose: 1 gm Documented by: [id number] Admin: 09/04/20 20:43 Dose: 1 gm Documented by: [id number] Admin: 09/04/20 17:05 Dose: 1 gm Documented by: [id number] Admin: 09/04/20 11:52 Dose: 1 gm Documented by: [id number] Admin: 09/04/20 07:50 Dose: 1 gm Documented by: [id number] Admin: 09/03/20 20:55 Dose: 1 gm Documented by: [id number] Admin: 09/03/20 16:56 Dose: 1 gm Documented by: [id number] Admin: 09/03/20 11:49 Dose: 1 gm Documented by: [id number] Admin: 09/03/20 07:54 Dose: 1 gm Documented by: [id number] Admin: 09/02/20 22:45 Dose: 1 gm Documented by: [id number] Discontinued Medications Sodium Chloride (Nss 1000ml) 1,000 mls @ 999 mls/hr IV .Q1H1M ONE Stop: 09/02/20 15:25 Last Infusion: 09/02/20 17:30 Dose: 0 mls/hr Documented by: [id number] Admin: 09/02/20 15:06 Dose: 999 mls/hr Documented by: [id number] Magnesium Sulfate/Dextrose (Magnesium Sulfate / D5w) 1 gm in 100 mls @ 200 mls/hr IV Q30M MIRLANDE Stop: 09/02/20 15:25 Last Infusion: 09/02/20 16:41 Dose: 0 mls/hr Documented by: [id number] Admin: 09/02/20 15:40 Dose: 200 mls/hr Documented by: [id number] Infusion: 09/02/20 15:37 Dose: 200 mls/hr Documented by: [id number] Admin: 09/02/20 15:07 Dose: 200 mls/hr Documented by: [id number] Magnesium Sulfate/Dextrose (Magnesium Sulfate / D5w) 1 gm in 100 mls @ 100 mls/hr IV NOW STA Stop: 09/02/20 15:26 Last Admin: 09/02/20 15:47 Dose: Not Given Documented by: [id number] Magnesium Sulfate/Dextrose (Magnesium Sulfate / D5w) 1 gm in 100 mls @ 200 mls/hr IV Q30M MIRLANDE Stop: 09/02/20 15:26 Last Infusion: 09/02/20 17:30 Dose: 0 mls/hr Documented by: [id number] Admin: 09/02/20 16:56 Dose: 200 mls/hr Documented by: [id number] Infusion: 09/02/20 16:56 Dose: 200 mls/hr Documented by: [id number] Admin: 09/02/20 16:30 Dose: 200 mls/hr Documented by: [id number] Cefepime HCl (Maxipime) 2,000 mg in 20 mls @ 5 mls/min IV NOW STA Stop: 09/02/20 17:25 Last Admin: 09/02/20 17:47 Dose: 5 mls/min Documented by: [id number] Vancomycin HCl 1,750 mg/ (Sodium Chloride) 535 mls @ 200 mls/hr IV ONE STA Stop: 09/02/20 20:20 Last Infusion: 09/02/20 21:24 Dose: 0 mls/hr Documented by: [id number] Admin: 09/02/20 18:02 Dose: 200 mls/hr Documented by: [id number] Sodium Chloride (1/2 Nss) 1,000 mls @ 125 mls/hr IV .Q8H MIRLANDE Stop: 09/03/20 12:51 Last Infusion: 09/03/20 17:01 Dose: 0 mls/hr Documented by: [id number] Admin: 09/03/20 08:59 Dose: 125 mls/hr Documented by: [id number] Infusion: 09/03/20 08:06 Dose: 125 mls/hr Documented by: [id number] Infusion: 09/03/20 05:41 Dose: 125 mls/hr Documented by: [id number] Infusion: 09/03/20 03:18 Dose: 50 mls/hr Documented by: [id number] Admin: 09/02/20 22:40 Dose: 125 mls/hr Documented by: [id number] Cefepime HCl 2,000 mg/ Syringe 20 mls @ 5 mls/min IV Q12H MIRLANDE; Protocol Stop: 09/04/20 23:59 Last Admin: 09/04/20 05:58 Dose: 5 mls/min Documented by: [id number] Admin: 09/03/20 18:20 Dose: 5 mls/min Documented by: [id number] Admin: 09/03/20 06:05 Dose: 5 mls/min Documented by: [id number] Vancomycin HCl 1,250 mg/ (Sodium Chloride) 275 mls @ 200 mls/hr IV Q24H MIRLANDE Stop: 09/04/20 23:59 Last Infusion: 09/03/20 18:13 Dose: 0 mls/hr Documented by: [id number] Admin: 09/03/20 16:49 Dose: 200 mls/hr Documented by: [id number] Metoprolol Tartrate (Metoprolol Tartrate 1 Mg/Ml Vial) 5 mg IV Q5M PRN PRN Reason: Tachycardia Stop: 10/02/20 14:49 Last Admin: 09/02/20 15:44 Dose: 5 mg Documented by: [id number] Admin: 09/02/20 15:12 Dose: 5 mg Documented by: [id number] Pantoprazole Sodium (Pantoprazole 40 Mg Tab) 20 mg PO BID MIRLANDE Stop: 10/02/20 20:59 Last Admin: 09/04/20 07:50 Dose: 20 mg Documented by: [id number] Admin: 09/03/20 20:55 Dose: 20 mg Documented by: [id number] Admin: 09/03/20 07:54 Dose: 20 mg Documented by: [id number] Admin: 09/02/20 22:44 Dose: 20 mg Documented by: [id number] Potassium Chloride (Potassium Chloride Crtab 20 Meq Tabcr) 40 meq PO NOW STA Stop: 09/02/20 15:51 Last Admin: 09/02/20 16:06 Dose: 40 meq Documented by: [id number] Imaging Data Attestation: I personally reviewed and interpreted this imaging study as follows: Radiologist's Impression: Chest X-Ray 09/02/20 14:24 XR chest 1V portable CLINICAL HISTORY: SEPSIS COMPARISON STUDY: 06/11/2020 FINDINGS: The cardiac and mediastinal contours remain stable. There is no failure. There is no lobar consolidation. Bilateral nodular opacities likely related to old rib fractures.[The patient's known lytic skeletal disease is difficult to visualized on this portable chest x-ray. IMPRESSION: No active disease in the chest. ACT 112: Negative or not required by law. Electronically signed by: Joselo Koch M.D. 09/02/2020 2:[address] 09/02/20 15:[address] DOSE: 614.27 mGy.cm HISTORY: Pt syncopal episode TECHNIQUE: Multiaxial CT images of the head were performed without the use of intravenous contrast. Automated exposure control was utilized for this study. A dose lowering technique was utilized adhering to the principles of ALARA. Comparison: Head CT 02/29/2020. Findings: The paranasal sinuses and mastoid air cells are clear. The calvarium and skull base are intact. There is no mass, hematoma, midline shift, acute infarct. White matter hypodensity is nonspecific but suggestive of microvascular ischemic change. The ventricles and sulci demonstrate mild age-related involutional changes. Impression: No acute intracranial abnormality. ACT 112: Negative or not required by law. Electronically signed by: Keyshawn Gtz M.D. 09/02/2020 3:42 PM Discharge Plan Visit Data Chief Complaint: Fall ED Provider: Elvis Martinez Discharge Problem: Fall, Anemia, Atrial fibrillation with rapid ventricular response Patient Disposition: Admitted As Inpatient Discharge Instructions Interventions: ED Discharge Assessment Last Done: 09/02/20 20:26 Discharge Problem: Fall Qualifiers: Encounter type: initial encounter Qualified Code(s): W19.XXXA - Unspecified fall, initial encounter Anemia Qualifiers: Anemia type: unspecified type Qualified Code(s): D64.9 - Anemia, unspecified
--- NOTE | 2020-09-02 15:43 | CT Scan Report ---
HEAD CT NONCONTRAST CT DOSE: 614.27 mGy.cm HISTORY: Pt syncopal episode TECHNIQUE: Multiaxial CT images of the head were performed without the use of intravenous contrast. A utomated exposure control was utilized for this study. A dose lowering technique was utilized adheri ng to the principles of ALARA. Comparison: Head CT 02/29/2020. Findings: The paranasal sinuses and mastoid air cells are clear. The calvarium and skull base are int act. There is no mass, hematoma, midline shift, acute infarct. White matter hypodensity is nonspecifi c but suggestive of microvascular ischemic change. The ventricles and sulci demonstrate mild age-rela bubba involutional changes. Impression: No acute intracranial abnormality. ACT 112: Negative or not required by law. Electronically signed by: Keyshawn Gtz M.D. 09/02/2020 3:42 PM
[2020-09-02] MEDS ORDERED: POTASSIUM CHLORIDE CRTAB 20 MEQ TABCR PO STA (15:50)
--- NOTE | 2020-09-02 16:11 | XRay Report ---
XR pelvis 1-2V routine, XR femur RT 2V routine CLINICAL HISTORY: Pt c/o Rt hip pain COMPARISON STUDY: Skeletal survey 07/02/2020. FINDINGS: No fracture or dislocation within the pelvis, hips, right femur. Multiple small lytic lesio ns are again noted throughout the pelvis, hips, and proximal right femur consistent with the patient' s known history of multiple myeloma. There is progressive sclerosis within the pelvis and hips which could be technical or due to treated metastatic disease. Soft tissues are unremarkable. The sacrum is intact. IMPRESSION: 1. No fractures identified within the pelvis, hips, or right femur. 2. No change in the multiple small lytic lesions seen throughout the pelvis, hips, proximal right fem ur consistent the patient's known history of multiple myeloma. 3. Suggestion of progressive sclerosis within the pelvis and hips which could be technical or due to treated metastatic disease. ACT 112: Negative or not required by law. Electronically signed by: Keyshawn Gtz M.D. 09/02/2020 4:10 PM
[2020-09-02 16:26] LABS: INR 1.1 (0.9-1.1); Partial Thromboplastin Time 26.4 Seconds (21.0-31.0); Prothrombin Time 10.9 Seconds (9.0-12.0)
[2020-09-02 16:28] LABS: Albumin Level 2.2 gm/dl (3.4-5.0); BUN Creatinine Ratio 10.4 (10-20); Calcium 7.1 mg/dl (8.5-10.1); Creatinine Clr Calc Pharmacy 33.2 ml/min; Est GFR (African American) 30.5; Est GFR (Non-African American) 26.3; Potassium 3.4 mmol/L (3.5-5.1)
[2020-09-02 16:48] LABS: Hemoglobin 7.5 g/dL (14.0-18.0); Mean Corpuscular Hemoglobin 35.5 pg (25-34); Mean Corpuscular Hgb Conc 35.7 g/dL (32-36); Mean Corpuscular Volume 99.5 fL (80-100); Platelet Count 31 K/uL (130-400); RDW Coefficient of Variation 19.7 % (11.5-14.5); Red Blood Count 2.11 M/uL (4.7-6.1); White Blood Count 1.08 K/uL (4.8-10.8)
[2020-09-02 16:49] LABS: Anisocytosis Present; Immature Granulocytes # (auto) 0.03 K/uL (0.00-0.02); Immature Granulocytes % (auto) 2.8 %; Lymphocytes # (auto) 0.31 K/uL (1.2-3.4); Lymphocytes % (auto) 28.7 %; Monocytes % (auto) 9.3 %; Neutrophils # (auto) 0.64 K/uL (1.4-6.5); Neutrophils % (auto) 59.2 %; Platelet Estimate Decreased (Normal)
[2020-09-02 16:50] LABS: Influenza A virus by PCR Negative (Neg); Influenza B virus by PCR Negative (Neg); RSV by PCR Negative (Neg); SARS CoV2 RNA(COVID-19) InHosp NEGATIVE (Negative)
[2020-09-02 16:54] LABS: Albumin Globulin Ratio 0.6 (0.9-2); Bilirubin,Total 0.8 mg/dl (0.2-1); C Reactive Protein 8.04 mg/dl (0-0.29); Creatine Kinase MB 13.3 ng/ml (0.5-3.6); Globulin 3.8 gm/dl (2.5-4.0); Troponin I 0.345 ng/ml (0-0.045)
[2020-09-02] MEDS ORDERED: SODIUM CHLORIDE 0.9% 250 ML IV PRN (16:57)
[2020-09-02] MEDS ORDERED: CEFEPIME 2,000 MG/20 ML VIAL IV STA (17:22)
[2020-09-02] MEDS ORDERED: VANCOMYCIN HCL 1,000 MG/270 ML BAG IV STA (17:25)
[2020-09-02] MEDS ORDERED: VANCOMYCIN CONSULT ACTIVE PRN (17:25)
[2020-09-02] MEDS ORDERED: VANCOMYCIN HCL 1,750 MG in SODIUM CHLORIDE 0.9% 500 ML IV STA (17:40)
--- NOTE | 2020-09-02 17:55 | History & Physical Report ---
Date of Service September 02, 2020 Assessment & Plan Admission and Anticipated Discharge Date Admission Date: 65 yo M w/ pMHx. of parox. A. fib, multiple myeloma, CKD @ baseline cr. 2.5, anemia, and HTN presents with a fall and found to be anemic and pancytopenia Pancytopenia WBC 1.08, Hgb 7.5, ptl 31 Moderate neutropenia, ANC 669 afebrile - neutropenic precautions - consult Dr. Potts w/ rec. for broad spectrum antibiotic coverage - started Cefepime and Vancomycin in ER - blood cultures ordered Normocytic anemia w/ HGB 7.5 in the setting of MM and CKD prior history of retroperitoneal bleed - transfusion 1U - continue to follow H&H - ordered CT pelvis w/o contrast to evaluate for recurrent retroperitoneal bleed Atrial fibrillation w/ RVR received Metoprolol IV in the ER last home Metoprolol one day prior - monitor on telemetry - continue home Metoprolol Multiple Myeloma initially diagnosed in 2009 CT 07/02/2020 with increased number of lytic lesions from prior CT in 2017 - on RVD (Lenalidomide D1-14 + Bortezomib + Dexamethasone + weekly Q21D) - consulted Dr. Potts Fall with right hip pain - XR hip without fracture or dislocation - ordered CT hip A/P w/o IV contrast Elevated troponin, w/ prior history of PEA in the setting of fall of unclear etiology denies chest pain - recheck AM troponin - monitor on telemetry Elevated CK in the setting of a fall <5,000 - hydration w/ 1.5 MIVF NSS - follow cr. CKD at baseline cr. - continue to follow Code: Conditional CPR but not intubation Diet: regular DVT prophylaxis: SCD's given anemia History of Present Illness Chief Complaint: fall Primary Care Provider: Rhonda [facility] at [facility] is here for a fall. He does not remember the fall but thinks it may have happened at around 1AM last night, he woke up in the bathroom and then attempted to crawl to his bedroom where he was able to get to a phone. The day prior he was feeling weak and was concerned that he might be anemic. He also was concerned that he might have low potassium since he was told that this was low and he would have to increase his potassium dose. He ate last on Tuesday at 4-5 PM. He woke up on his left side but had right sided hip pain that was a dull ache. He took his home medications last on Friday 09/01. Cardiology saw him last during an admission on 03/09/2020 and added Amiodarone at that time, but he has not been taking this at home. Last seen by nephrology on 08/09/20 where they noted that his baseline cr. was 2.5 Last oncology note from 07/28. ED course metoprolol 5mg IV for a fib w/ rvr, KCL 40 oral, magnesium, started cefepime and Vancomycin Allergies Allergy/AdvReac Type Severity Reaction Status Date / Time epinephrine Allergy Intermediate STATES Verified 09/02/20 14:56 GETS A "WARNER" levofloxacin Allergy Intermediate RASH Verified 09/02/20 14:56 Sulfa (Sulfonamide Allergy Intermediate Rash Verified 09/02/20 14:56 Antibiotics) house dust Allergy Unknown Itchy Verified 09/02/20 14:56 Eye(s) Home Medications Medication Instructions Recorded Confirmed Type acyclovir 400 mg PO BID 05/15/20 09/02/20 History albuterol sulfate [Proventil HFA] 2 puff INHALATION Q6H PRN 05/15/20 09/02/20 History amiodarone 200 mg PO DAILY 05/15/20 09/02/20 History ascorbic acid (vitamin C) [Vitamin 500 mg PO DAILY 05/15/20 09/02/20 History C] aspirin 81 mg PO DAILY 05/15/20 09/02/20 History calcium carbonate-vitamin D3 1 tab PO DAILY 05/15/20 09/02/20 History [Calcium 600 + D(3)] cyanocobalamin (vitamin B-12) 1,000 mcg PO DAILY 05/15/20 09/02/20 History [Vitamin B-12] docusate sodium 100 mg PO DAILY PRN 05/15/20 09/02/20 History fluticasone propionate [Flonase 1 spray INTRANASAL DAILY 05/15/20 09/02/20 History Allergy Relief] guaifenesin [Mucinex] 600 mg PO BID 05/15/20 09/02/20 History metoprolol tartrate 50 mg PO BID 05/15/20 09/02/20 History mirtazapine 15 mg PO HS 05/15/20 09/02/20 History multivitamin 1 tab PO DAILY 05/15/20 09/02/20 History prochlorperazine maleate 5 mg PO Q8 PRN 05/15/20 09/02/20 History promethazine 25 mg [place] Q6H PRN 05/15/20 09/02/20 History sucralfate [Carafate] 1 g PO ACHS 05/15/20 09/02/20 History cetirizine 5 mg tablet 5 mg PO DAILY PRN 06/06/20 09/02/20 History gabapentin 100 mg PO TID 06/11/20 09/02/20 History omega 9-[id number]-kkz-fish oil 2 cap PO DAILY 06/11/20 09/02/20 History doxepin 25 mg PO HS 07/17/20 09/02/20 History pantoprazole 20 mg PO BID 07/17/20 09/02/20 History dexamethasone 4 mg PO UD 09/02/20 09/02/20 History lenalidomide [Revlimid] 25 mg PO UD 09/02/20 09/02/20 History ondansetron HCl 8 mg PO UD 09/02/20 09/02/20 History potassium chloride 20 meq PO DAILY 09/02/20 09/02/20 History Past Med/Surg History Medical History Acute confusion Acute dehydration Acute hypotension Anxiety CKD (chronic kidney disease) Coagulase negative Staphylococcus bacteremia HTN (hypertension) Hypogammaglobulinemia (~05/2011) Hypomagnesemia Multiple myeloma Neuropathy BL FOOT; 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 CANCER TREATMENT Pancytopenia Paroxysmal atrial fibrillation PEA (Pulseless electrical activity) Pneumonia Prediabetes Retroperitoneal bleed Rhabdomyolysis Surgical History Bone marrow replaced by transplant History of bone marrow biopsy History of cataract surgery BL History of colonoscopy History of incision and drainage CYST - RT GROIN History of stem cell transplant History of surgery CYST REMOVED FROM COCCYX 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; 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 Family History Family/Other Family history of diabetes mellitus Social History Smoking Status: Never smoker Second Hand Exposure: No; Hx Alcohol Use: Yes Alcohol type: wine and hard liquor Hx Substance Use: No Preferred Language: Maori Communication Ability: Effective Marketing Operations Analyst Required: No Beliefs That Will Affect Care: None marital status: Single Current Living Situation: Alone Current Living Situation Comment: Rhonda Angel Feels Safe at Home: Yes Safety Concerns: Feels Safe At This Time Assistive Devices: Walker Review of Systems Review of Systems: Constitutional: denies fevers, chills, nausea, vomiting, diaphoresis admits weight increased lately head: denies headache, confusion, lightheadedness, vision changes admits LOC Neuro: denies slurring of speech, focal weakness, neck stiffness admits chronic numbness and tingling in feet and left hand ENT: denies rhinorrhea, sneezing, sore throat, bleeding in mouth, epistaxis admits stuffiness (relates to allergies) Cardiac: denies chest pain, palpitations Pulm.: denies cough, shortness of breath, hemoptysis admits sputum production GI: denies indigestion, diarrhea, constipation, blood in stool : denies dysuria, polyuria admits urgency Physical Exam Constitutional: WD/WN, vitals as above Eyes: PERRL, conjunctivae normal, anicteric sclerae ENMT: external ear and nose normal, oropharynx normal Neck: normal visual inspection Respiratory: normal respiratory effort, lungs clear to auscultation Cardiovascular: Rate/Rhythm: + irregularly irregular Extremities: + edema (1+ bilaterally) Gastrointestinal (Abdomen): Inspection/Auscultation: abdomen normal to inspection; abdomen not distended Skin: no rashes, warm and dry Neurologic: no focal motor deficits Psychiatric: Orientation: alert and oriented x 3 Eye Contact: good eye contact Affect: euthymic affect Results & Data Results & Data ([facility]) Vital Signs (Past 12 Hours) Vital Signs Temp Pulse Resp BP Pulse Ox 09/02/20 16:31 109 H 22 106/56 L 99 09/02/20 16:30 108 H 20 98 09/02/20 16:08 125 H 16 110/64 100 09/02/20 16:01 103 H 15 84/57 L 100 09/02/20 16:00 37.5 C 111 H 16 100 09/02/20 15:44 128 H 117/66 09/02/20 15:43 124 H 22 117/66 98 09/02/20 15:36 115 H 21 102/76 99 09/02/20 15:34 130 H 22 09/02/20 15:12 141 H 116/84 09/02/20 15:10 142 H 18 116/84 97 09/02/20 15:00 135 H 20 100 09/02/20 14:31 149 H 19 139/82 94 09/02/20 14:30 153 H 21 100 09/02/20 14:24 98 09/02/20 14:10 36.8 C 151 H 15 127/70 99 CBC Results Results Complete Blood Count Results: RBC 2.92 M/uL (4.7-6.1) L 09/04/20 WBC 1.06 K/uL (4.8-10.8) L 09/04/20 Hgb 9.9 g/dL (14.0-18.0) L 09/04/20 Hct 28.2 % (42-52) L 09/04/20 Plt Count 13 K/uL (130-400) L* 09/04/20 Chemistry (BMP) Results BMP Results: Sodium 139 mmol/L (136-145) 09/04/20 Potassium 4.1 mmol/L (3.5-5.1) 09/04/20 Chloride 115 mmol/L (98-107) H 09/04/20 BUN 23 mg/dl (7-18) H 09/04/20 Creatinine 2.17 mg/dl (0.6-1.4) H 09/04/20 Glucose 82 mg/dl (70-99) 09/04/20 Supervising Physician Co-Signing Physician Notes I personally saw and examined the patient. I verified all sutherland points and agree with resident physician Dr. Fracisco Baxter with the following exceptions and/or additions: 65-year-old male presents to the ER with fall last night. He does not remember falling but woke up on the floor this morning. He reports possibly on his way to the bathroom. Had to pull himself to the phone this morning and has not taken his usual medications this morning. Complaining of right lateral hip pain. O/E alert and orientated pain on palpation over the lateral right hip A/P Fall - monitor on telemetry for arrhythmia however suspect this is secondary to his chemotherapy causing pancytopenia and generalized weakness. Will need PT/OT prior to discharge. Pancytopenia -secondary to chemotherapy. Neutropenic precautions. Broad- spectrum antibiotic coverage requested by his oncologist however no specific source identified. Follow-up blood cultures. Consult oncology. Normocytic anemia -given prior retroperitoneal bleed and current right hip pain advised to repeat CT to assess for retroperitoneal bleed. Rhabdomyolysis - agree with IV fluids as above. Atrial fibrillation with RVR -secondary to not taking his medication this morning. Rates likely to resolve with his usual metoprolol dosing. On no anticoagulation due to prior retroperitoneal bleeds significant enough to cause PEA cardiac arrest. Elevated troponin -suspect supply/demand mismatch secondary to anemia. No chest pain or shortness of breath to suggest ACS. Repeat levels in a.m. previous normal echocardiogram in February 2020. Resident Activity Tracking Resident Involvement: Resident Care Provided Care Provided: Adult Hospital Medicine
[2020-09-02 18:20] LABS: Appearance Urine Clear (Clear); Bacteria Urine Automated Negative (Negative); Bilirubin Urine Negative (Negative); Blood Urine 3+ (Negative); Color Urine Yellow; Epithelial Cell Urine Auto 20-30 /lpf (0-5); Glucose Urine UA Trace (Negative); Ketones Urine Negative (Negative); Leukocyte Esterase Urine Negative (Negative); Nitrite Urine Negative (Negative); Protein Urine 2+ (Negative); RBC Urine Automated 0-4 /hpf (0-4); Specific Gravity Urine 1.016 (1.000-1.030); Urobilinogen Urine Negative (Negative)
[2020-09-02] MEDS ORDERED: ONDANSETRON INJ 2 MG/ML 2 ML VIAL IV PRN (20:52)
[2020-09-02] MEDS ORDERED: PROCHLORPERAZINE MALEATE 5 MG TAB PO PRN (20:52)
[2020-09-02] MEDS ORDERED: DOCUSATE SODIUM 100 MG CAP PO PRN (20:52)
[2020-09-02] MEDS ORDERED: ACETAMINOPHEN 325 MG TAB PO PRN (20:52)
[2020-09-02] MEDS ORDERED: POLYETHYLENE (MIRALAX) 17 GM PACK PO PRN (20:52)
[2020-09-02] MEDS ORDERED: METOPROLOL TARTRATE 50 MG TAB PO SCH (21:00)
[2020-09-02] MEDS: SODIUM CHLORIDE 0.45 % 1,000 ML IV SCH (22:40)
[2020-09-02] MEDS: ACYCLOVIR 400 MG TAB PO SCH (22:41)
[2020-09-02] MEDS: GABAPENTIN 100 MG CAP PO SCH (22:41)
[2020-09-02] MEDS: DOXEPIN HCL 25 MG CAPSULE PO SCH (22:41)
[2020-09-02] MEDS: guaiFENesin 600 MG TABCR PO SCH (22:44)
[2020-09-02] MEDS: PANTOprazole 40 MG TAB PO SCH (22:44)
[2020-09-02] MEDS: SUCRALFATE 1 GM TAB PO SCH (22:45)
[2020-09-02] MEDS: MIRTAZAPINE TAB 15 MG TAB PO SCH (22:54)
[2020-09-02] MEDS ORDERED: CEFEPIME 2,000 MG in SYRINGE 0 ML IV SCH (23:15)
[2020-09-02] MEDS: AMIODARONE 200 MG TAB PO SCH (23:18)
[2020-09-02] MEDS ORDERED: CEFEPIME CONSULT ACTIVE PRN (23:19)
[2020-09-03 01:33] LABS: Hematocrit (blood only) 21.9 % (42-52); Hemoglobin 7.4 g/dL (14.0-18.0)
[2020-09-03] MEDS ORDERED: SODIUM CHLORIDE 0.9% 250 ML IV PRN (01:43)
[2020-09-03] MEDS: CEFEPIME 2,000 MG in SYRINGE 0 ML IV SCH ×2 (06:05→18:20)
--- NOTE | 2020-09-03 07:05 | Hospitalist Progress Note ---
Date of Service September 03, 2020 Assessment & Plan (1) Multiple myeloma: 65 yo M w/ pMHx. of parox. A. fib, multiple myeloma, CKD @ baseline cr. 2.5, anemia, and HTN presents with a fall and found to be anemic and pancytopenia Pancytopenia - WBC 1.08, Hgb 7.5, ptl 31 - Dr. Potts consulted Moderate neutropenia - ANC 669 - afebrile - neutropenic precautions - consult Dr. Potts w/ rec. for broad spectrum antibiotic coverage - started Cefepime and Vancomycin in ER - We will continue antibiotic coverage for total of 48 hours pending blood cultures - Likely that his current symptoms are not caused by sepsis but will continue antibiotics out of an abundance of caution, likely discontinue tomorrow - blood cultures ordered Normocytic anemia in the setting of MM and CKD - HGB 7.5 on admission, 7.4 on recheck after transfusion with 1U -Subsequently transfused with a second unit of PRBCs - Hemoglobin increased to 8.9 after second unit - prior history of retroperitoneal bleed - CT pelvis w/o contrast to evaluate for recurrent retroperitoneal bleed no acute intra-abdominal or intrapelvic abnormality, finding of cholelithiasis, trace pleural effusions, diffuse lytic lesions compatible with multiple myeloma - continue to follow H&H Atrial fibrillation w/ RVR - received Metoprolol IV in the ER - monitor on telemetry - Rate now well controlled at 73 this morning - continue home Metoprolol Multiple Myeloma - initially diagnosed in 2009 - CT with lytic lesions compatible with multiple myeloma - on RVD (Lenalidomide D1-14 + Bortezomib + Dexamethasone + weekly Q21D) - consulted Dr. Potts Fall with right hip pain - XR hip without fracture or dislocation - No significant findings on CT A/P Elevated troponin - prior history of PEA in the setting of fall of unclear etiology - denies chest pain -Troponin on admission 0.345, decreased on recheck this morning to 0.195 - monitor on telemetry Elevated CK <5,000 in the setting of a fall - hydration w/ 1.5 MIVF NSS - follow cr. CKD -Creatinine at baseline - continue to follow BMPs Code: Conditional CPR but not intubation Diet: regular DVT prophylaxis: SCD's given anemia Dispo: Med/Surg with Telemetry (2) Pancytopenia: (3) CKD (chronic kidney disease): (4) Paroxysmal atrial fibrillation: (5) HTN (hypertension): (6) Acute kidney injury superimposed on CKD: Admission and Anticipated Discharge Date Admission Date: September 02, 2020 Supervising Physician Co-Signing Physician Notes I personally examined the patient and verified all sutherland points of history and exam, discussed case, and agree with decision making with Dr Bazan. Feeling weak and tired. Discussed with oncology, also discussed the case with the patient's PCP with whom he has had a very long relationship. Vitals noted, in general he is awake and alert pleasant no distress. HEENT normocephalic atraumatic mucous membranes moist. Breathing unlabored no accessory muscle use good effort. Skin shows no rashes no pallor or icterus. Neuro no focal deficits. PancytopeniaI strongly suspect this is antineoplastic chemotherapy induced, rather than a neutropenic sepsis picture, given that he has no fever, no overt signs or symptoms of infection. Continue empiric antibiotics to follow cultures into tomorrow, but if there is still no signs or symptoms of infection on serial exams or on culture, likely DC. Oncology will discuss further options with patient, although it seems that he may be coming to the end of potential therapeutic measures. CKD 4noted Myocardial demand ischemianoted otherwise as above Subjective Patient seen at bedside this morning. Reports that he is feeling overall the same as when he arrived. He says he mainly just feels tired and is not really having any other symptoms. Denies fever, chills, shortness of breath, chest pain, cough, nausea, vomiting, abdominal pain. Review of Systems Review of Systems: All systems reviewed & are unremarkable except as noted in Subjective Physical Exam Constitutional: WD/WN, vitals as above Eyes: PERRL, conjunctivae normal, anicteric sclerae ENMT: external ear and nose normal, oropharynx normal Neck: normal visual inspection Respiratory: normal respiratory effort, lungs clear to auscultation Cardiovascular: Rate/Rhythm: + irregularly irregular Extremities: + edema (1+ bilaterally) Gastrointestinal (Abdomen): normal bowel sounds, soft, nontender, no hepatosplenomegaly Skin: no rashes, warm and dry Neurologic: no focal motor deficits Psychiatric: Orientation: alert and oriented x 3 Eye Contact: good eye contact Affect: euthymic affect Results & Data Results & Data ([facility]) Vital Signs (Past 12 Hours) Vital Signs Temp Pulse Pulse Resp BP BP Pulse Ox 09/03/20 06:07 103/64 09/03/20 05:37 36.5 C 73 18 89/55 L 98 09/03/20 05:05 36.6 C 70 18 98/61 L 96 09/03/20 03:56 36.5 C 68 18 94/58 L 98 09/03/20 03:30 36.4 C L 68 18 92/49 L 97 09/03/20 03:11 36.7 C 68 16 93/58 L 97 09/03/20 02:52 36.9 C 68 18 95/57 L 97 09/02/20 23:38 82 09/02/20 23:00 37.0 C 84 18 109/68 98 09/02/20 21:50 37 C 81 18 110/66 99 09/02/20 21:34 36.9 C 80 18 99/61 L 100 09/02/20 20:50 36.7 C 83 18 100/55 L 100 09/02/20 20:20 36.5 C 82 18 118/62 99 09/02/20 20:05 36.9 C 82 21 120/59 L 99 09/02/20 20:00 81 20 116/60 99 09/02/20 19:47 84 21 113/58 L 100 09/02/20 19:46 37.7 C H 82 15 113/58 L 99 09/02/20 19:30 83 17 119/61 99 Resident Activity Tracking Resident Involvement: Resident Care Provided Care Provided: Adult Hospital Medicine
--- NOTE | 2020-09-03 07:31 | CT Scan Report ---
ABDOMEN AND PELVIS CT WITHOUT CONTRAST CT DOSE: 679.61 mGy.cm HISTORY: Acute back pain status post fall. History of retroperitoneal bleeding Hx retroperitoneal bl eed, fall, anemia TECHNIQUE: Multiaxial CT images of the abdomen and pelvis were performed without contrast. A dose lo wering technique was utilized adhering to the principles of ALARA. COMPARISON STUDY: 06/12/2020 FINDINGS: Decreased attenuation of the cardiac blood pool compatible with anemia. Trace pleural effusions with mild dependent subsegmental bibasilar atelectasis. No pneumatosis or pneumoperitoneum. The unenhanced spleen, mildly atrophic pancreas, adrenal glands and liver appear unremarkable. Cholelithiasis. Unch anged bilateral perinephric stranding. No hydronephrosis or urolith. Mild urinary bladder distention. Unremarkable prostate. Trace perihepatic ascites. Resolution of the previously described retroperito chao hematoma. No new acute intraperitoneal or retroperitoneal hemorrhage identified. Calcified plaque the abdominal aorta without aneurysm. There is no adenopathy. Air-fluid levels throu ghout the colon. Hyperattenuating material within the proximal appendix suggestive of retained enteri c contrast versus appendicolith. No bowel obstruction or bowel wall thickening. Small fat filled fausto umbilical hernia, diastases 1.6 cm. Mild subcutaneous stranding with minimal subcutaneous emphysema o f the anterior abdominal wall suggestive of additional injection sites. Numerous lytic lesions throug hout the imaged skeletal structures redemonstrated. No acute pathologic fracture. Chronic wedge defor mity at T11 without retropulsion. IMPRESSION: 1. No acute intra-abdominal or intrapelvic abnormality. 2. Cholelithiasis. 3. Trace pleural effusions. 4. Diffuse lytic skeletal lesions compatible with multiple myeloma. 5. Additional findings as above. ACT 112: Negative or not required by law. The above report was generated using voice recognition software. It may contain grammatical, syntax o r spelling errors. Electronically signed by: Mike Cullen M.D. 09/03/2020 7:29 AM
[2020-09-03] MEDS: SUCRALFATE 1 GM TAB PO SCH ×4 (07:54→20:55)
[2020-09-03] MEDS: PANTOprazole 40 MG TAB PO SCH ×2 (07:54→20:55)
[2020-09-03] MEDS: POTASSIUM CHLORIDE CRTAB 20 MEQ TABCR PO SCH (07:55)
[2020-09-03] MEDS: FLUTICASONE PROPIONATE NA SPR 16 GM BTL SCH (07:55)
[2020-09-03] MEDS: guaiFENesin 600 MG TABCR PO SCH ×2 (07:55→20:55)
[2020-09-03] MEDS: ACYCLOVIR 400 MG TAB PO SCH ×2 (07:55→20:54)
[2020-09-03 08:44] LABS: BUN Creatinine Ratio 10.5 (10-20); Calcium 7.1 mg/dl (8.5-10.1); Est GFR (African American) 34.3; Est GFR (Non-African American) 29.6; Potassium 3.9 mmol/L (3.5-5.1)
[2020-09-03 08:57] LABS: Troponin I 0.195 ng/ml (0-0.045)
[2020-09-03 08:58] LABS: Anisocytosis Present; Eosinophils # (auto) 0.02 K/uL (0-0.5); Eosinophils % (auto) 2.1 %; Giant Platelets 1+; Hematocrit (blood only) 25.1 % (42-52); Hemoglobin 8.9 g/dL (14.0-18.0); Lymphocytes % (auto) 31.9 %; Mean Corpuscular Hgb Conc 35.5 g/dL (32-36); Mean Corpuscular Volume 95.8 fL (80-100); Microcytosis Present; Monocytes # (auto) 0.13 K/uL (0.11-0.59); Monocytes % (auto) 13.8 %; Neutrophils % (auto) 52.2 %; Platelet Estimate SIGNIFIC DECREASED (Normal); RDW Coefficient of Variation 20.4 % (11.5-14.5); Red Blood Count 2.62 M/uL (4.7-6.1)
[2020-09-03] MEDS: SODIUM CHLORIDE 0.45 % 1,000 ML IV SCH (08:59)
[2020-09-03] MEDS: GABAPENTIN 100 MG CAP PO SCH ×3 (09:09→20:54)
[2020-09-03 09:20] LABS: Platelet Count 23 K/uL (130-400); White Blood Count 0.94 K/uL (4.8-10.8)
[2020-09-03 09:21] LABS: Neutrophils # (auto) 0.49 K/uL (1.4-6.5)
--- NOTE | 2020-09-03 10:26 | Pharmacy Report ---
Pharmacy Abx Dose Short Note - Date of Service September 03, 2020 - Assessment & Plan Assessment 65 year old male admitted s/p fall, found to be anemic, pancytopenic. PMHx significant for multiple myeloma. Vancomycin and cefepime ordered empirically Cultures are pending. Plan Vancomycin * Received loading dose of vancomycin 1750 mg x 1 last evening (~20 mg/kg/dose) * Will plan on starting vancomycin 1250 (~14 mg/kg) iv q 24 hrs. * Estimated kinetics: t1/2~19 hrs, ke~0.03, CrCl ~37 * Ordered empirically - will order level if plan is to continued >48 hrs Pharmacy will continue to follow and will adjust dose/frequency as necessary. Thank you.
--- NOTE | 2020-09-03 11:34 | Consultation Report ---
DATE OF CONSULTATION: 09/03/2020 HEMATOLOGY CONSULTATION REASON FOR CONSULTATION: Syncopal episode in a 65-year-old gentleman with IgG kappa multiple myeloma. HISTORY OF PRESENT ILLNESS: Mr. Collins is a pleasant 65-year-old gentleman well known to [facility] with a longstanding history of stage IIIA IgG kappa multiple myeloma, recently restarted on Revlimid, Velcade and dexamethasone for relapsed disease. Sourav apparently fell. He thinks the episode happened around 1:00 in the morning. He subsequently woke up in the bathroom and attempted to crawl out to the bedroom where he was able to get to a phone and contacted his friend. Day prior, he had complained of asthenia and was concerned that he might be anemic. Mr. Collins was originally diagnosed with multiple myeloma in 2009. Again, he has been heavily pretreated, which includes a previous autologous peripheral blood stem cell transplant in 2010. The patient was then placed on maintenance Revlimid until he relapsed in 2014. The patient more recently was treated with Darzalex, Pomalyst and dexamethasone, and subsequently single agent Darzalex until 01/2020 when at that time collapsed in his home and was unfortunately not found for several hours. He was subsequently admitted with rhabdomyolysis. He had multiple in-hospital complications including coag-negative Staphylococcus bacteremia and left lobar pneumonia. He suffered a PEA arrest in 03/2020 while defecating. Subsequent drop in hemoglobin, was diagnosed with retroperitoneal bleed. Unfortunately, his disease had once again relapsed. He was recently started on Revlimid, Velcade and dexamethasone as salvage. He was not even through his first cycle before this event leading to hospital admission. Kirt was found to be profoundly pancytopenic and subsequently admitted for a syncopal workup and pancytopenia attributable to treatment. PAST MEDICAL HISTORY: Again, significant for IgG kappa multiple myeloma, rhabdomyolysis, electrolyte dysfunction, paroxysmal atrial fibrillation, PEA, pneumonia, prediabetes, retroperitoneal bleed. PAST SURGICAL HISTORY: Status post autologous peripheral blood stem cell transplant, bone marrow biopsy, cataract surgery, colonoscopy, incision and drainage of a right groin pilonidal cyst. MEDICATIONS: Include acyclovir 400 mg p.o. b.i.d., albuterol 2 puffs inhaled q.6 hours p.r.n., amiodarone 200 mg p.o. daily, vitamin C 500 mg p.o. daily, aspirin 81 mg p.o. daily, calcium carbonate 1 tablet p.o. daily, vitamin B12 1000 mcg p.o. daily, docusate sodium 100 mg p.o. daily p.r.n., Flonase 1 spray intranasally daily, Mucinex 600 mg p.o. b.i.d., metoprolol 50 mg p.o. b.i.d., mirtazapine 15 mg p.o. at bedtime, multivitamin 1 tablet p.o. daily, Compazine 5 mg p.o. q.8 hours p.r.n., promethazine 25 mg per rectum q.6 hours p.r.n., Carafate 1 gram p.o. a.c. and at bedtime, cetirizine 5 mg p.o. daily p.r.n., gabapentin 100 mg p.o. t.i.d., omega-3 fish oil 2 capsules p.o. daily, doxepin 25 mg p.o. at bedtime, Protonix 20 mg p.o. b.i.d., dexamethasone 4 mg UD, Revlimid 25 mg p.o. UD, Zofran 8 mg p.o. q.8 hours p.r.n., potassium chloride 20 mEq p.o. daily. ALLERGIES: INCLUDE HOUSE DUST, SULFA, LEVOFLOXACIN, AND EPINEPHRINE. FAMILY HISTORY: Positive for diabetes mellitus. SOCIAL HISTORY: He currently resides in a [facility] rehabilitation center at [facility]. He is a nonsmoker, nondrinker, non-illicit drug user. REVIEW OF SYSTEMS: GENERAL: Negative for fevers, chills or sweats. Admits to weight gain recently. SKIN: No rashes or lesions. No history of dermatoses. HEENT: Negative for current headaches, lightheadedness or dizziness. No acute visual or hearing deficits. No sinus symptoms, sore throat or dysphagia. LYMPHATICS: No history of lymphadenopathy. CARDIAC: Negative for coronary artery disease. No current angina or palpitations. PULMONARY: Negative for shortness of breath, dyspnea or orthopnea. No cough or hemoptysis. GASTROINTESTINAL: Negative for abdominal pain, nausea, vomiting, diarrhea or constipation, hematochezia or melena stools. GENITOURINARY: No hematuria, dysuria, or urinary incontinence. PSYCHIATRIC: Negative for anxiety, depression, or psychoses. MUSCULOSKELETAL: Positive for generalized weakness. Has been slow to recover and has difficulty with ambulation since admission to hospital with rhabdomyolysis. ENDOCRINE: Negative for diabetes or thyroid disease. NEUROLOGIC: Negative for seizures, stroke, or migraine headache. HEMATOLOGIC: Pancytopenia attributable to chemotherapeutic effect. PHYSICAL EXAMINATION: GENERAL: A very pleasant 65-year-old, awake, alert and appropriate, in no acute distress. VITAL SIGNS: Temperature 36.5, pulse 73, respiratory rate 16, blood pressure 101/57. SKIN: Warm, dry, noncyanotic without petechia, rash, or ecchymosis. HEENT: Head is atraumatic, normocephalic. Eyes: PERRLA, EOMI. Sclerae nonicteric. No conjunctival injection. Nares patent without rhinorrhea or discharge. Throat is clear. Tongue is midline. Mucous membranes are moist. NECK: Supple without JVD or thyromegaly. LYMPHATICS: No cervical or supraclavicular palpable nodes. HEART: Regular rate and rhythm. No clicks, rubs, murmurs, or gallops. LUNGS: Clear to auscultation bilaterally. ABDOMEN: Soft, nontender, nondistended. EXTREMITIES: No clubbing, cyanosis, or edema. NEUROLOGICAL: He is awake, alert, and oriented x3. LABORATORY DATA: WBC count 1080, hemoglobin 7.4, platelet count 31,000. Absolute neutrophil count 640. Coags within normal limits. Sodium 140, potassium 3.4, chloride 111, carbon dioxide 21, BUN 26, creatinine 2.50. AST 104, ALT 62. LDH 321, total creatine kinase 2078, CK-MB 13.3. Troponin 0.345. C-reactive protein 8.04. Albumin 2.2. CT scan of head: No acute intracranial anomaly. CT of the abdomen and pelvis: No acute intraabdominal or intrapelvic anomalies. Cholelithiasis noted with trace pleural effusions. Diffuse lytic skeletal lesions compatible with multiple myeloma. IMPRESSION: 1. Pancytopenia attributable to Revlimid, Velcade and dexamethasone. 2. Neutropenia. 3. Syncopal episode. 4. IgG kappa multiple myeloma in relapse. 5. Status post fall. 6. History of rhabdomyolysis. 7. Hypoalbuminemia. PLAN: In summary, Mr. Collins is a very pleasant and very complex 65-year-old gentleman, currently under my care at [facility] with relapsed multiple myeloma. Sourav has been heavily pretreated including autologous peripheral blood stem cell transplant. Most recently, the patient had been on longstanding Pomalyst, Darzalex and dexamethasone followed by Darzalex single agent, which he continued until 01/2020. That seemed to be the beginning of his clinical downfall overall. The patient was hospitalized for a prolonged period of time complicated by pneumonia and slow recovery. He now lives at home after prolonged stay at an assisted living facility. Unfortunately, not surprising, his disease subsequently relapsed and it was decided to rechallenge him with Revlimid, Velcade and dexamethasone. He was in the midst of receiving his first cycle and not surprisingly is profoundly pancytopenic. This gentleman suffered a fall. He believes it happened around 1:00 a.m. and woke up in his bathroom. He was able to crawl out to his bedroom and get to the phone. He was subsequently transported to [facility] and found to be profoundly pancytopenic. Fortunately, a CT of the head was essentially negative and I believe his syncopal episode is related to severe anemia and poor nutritional status and dehydration. The patient was not febrile, but nonetheless instructed the ER physician to go ahead and cover him for gram negatives with his infectious history. We will obviously suspend current therapy and allow him to recover. I will need to sit down with Sourav and discuss perhaps a modified regimen moving forward. Unfortunately, he is beyond cure and I do not look for him to do very well in the [facility]cc. Agree with current medical management and we will make recommendations as his hospitalization progresses. His nutritional status needs to be addressed and should incorporate physical therapy as well. Thank you very much for allowing me to participate in his care. If you have any questions or concerns, please feel free to contact me at any time. SHELLIED
--- NOTE | 2020-09-03 15:59 | Electrocardiogram Report ---
Test Reason : Blood Pressure : / mmHG Vent. Rate : 144 BPM Atrial Rate : 159 BPM P-R Int : 000 ms QRS Dur : 076 ms QT Int : 250 ms P-R-T Axes : 000 050 243 degrees QTc Int : 387 ms Atrial fibrillation with rapid ventricular response Abnormal ECG When compared with ECG of 17-JUL-2020 11:29, Atrial fibrillation has replaced Sinus rhythm Vent. rate has increased BY [address] now depressed in Anterior leads Inverted T waves have replaced nonspecific T wave abnormality in Anterior leads Confirmed by Haja Gaona ([id number]) on 09/03/2020 3:59:17 PM Referred By: Jeanne hernandez [facility] Confirmed By:Haja Gaona
[2020-09-03] MEDS ORDERED: VANCOMYCIN HCL 1,250 MG in SODIUM CHLORIDE 0.9% 250 ML IV SCH (16:00)
--- NOTE | 2020-09-03 17:21 | Billing Data ---
Date of Service September 03, 2020 Coding Level of Care Code 95680 Subseq Hosp Care Lvl 3
[2020-09-03] MEDS: DOXEPIN HCL 25 MG CAPSULE PO SCH (20:54)
[2020-09-03] MEDS: MIRTAZAPINE TAB 15 MG TAB PO SCH (20:55)
[2020-09-04] MEDS: CEFEPIME 2,000 MG in SYRINGE 0 ML IV SCH (05:58)
[2020-09-04] MEDS: PANTOprazole 40 MG TAB PO SCH ×2 (07:50→20:43)
[2020-09-04] MEDS: SUCRALFATE 1 GM TAB PO SCH ×4 (07:50→20:43)
[2020-09-04] MEDS: ACYCLOVIR 400 MG TAB PO SCH ×2 (07:51→20:42)
[2020-09-04] MEDS: POTASSIUM CHLORIDE CRTAB 20 MEQ TABCR PO SCH (07:51)
[2020-09-04] MEDS: GABAPENTIN 100 MG CAP PO SCH ×3 (07:51→20:42)
[2020-09-04] MEDS: FLUTICASONE PROPIONATE NA SPR 16 GM BTL SCH (07:51)
[2020-09-04] MEDS: guaiFENesin 600 MG TABCR PO SCH ×2 (07:52→20:43)
[2020-09-04] MEDS: METOPROLOL TARTRATE 25 MG TAB PO SCH (07:55)
[2020-09-04 08:34] LABS: Basophils # (auto) 0.01 K/uL (0-0.2); Basophils % (auto) 0.9 %; Eosinophils # (auto) 0.03 K/uL (0-0.5); Eosinophils % (auto) 2.8 %; Hematocrit (blood only) 28.2 % (42-52); Hemoglobin 9.9 g/dL (14.0-18.0); Immature Granulocytes # (auto) 0.02 K/uL (0.00-0.02); Immature Granulocytes % (auto) 1.9 %; Lymphocytes # (auto) 0.37 K/uL (1.2-3.4); Lymphocytes % (auto) 34.9 %; Mean Corpuscular Hemoglobin 33.9 pg (25-34); Mean Corpuscular Hgb Conc 35.1 g/dL (32-36); Mean Corpuscular Volume 96.6 fL (80-100); Monocytes % (auto) 9.4 %; Neutrophils # (auto) 0.53 K/uL (1.4-6.5); Neutrophils % (auto) 50.1 %; Platelet Count 13 K/uL (130-400); RDW Coefficient of Variation 20.2 % (11.5-14.5); RDW Standard Deviation 69.9 fL (36.4-46.3); Red Blood Count 2.92 M/uL (4.7-6.1); White Blood Count 1.06 K/uL (4.8-10.8)
[2020-09-04 08:35] LABS: Anisocytosis Present; BUN Creatinine Ratio 10.5 (10-20); Calcium 7.2 mg/dl (8.5-10.1); Creatinine Clr Calc Pharmacy 38.2 ml/min; Est GFR (African American) 36.2; Est GFR (Non-African American) 31.3; Platelet Estimate SIGNIFIC DECREASED (Normal); Potassium 4.1 mmol/L (3.5-5.1); Tear Drop Cells 1+
--- NOTE | 2020-09-04 09:21 | Hospitalist Progress Note ---
Date of Service September 04, 2020 Assessment & Plan (1) Multiple myeloma: 65 yo M w/ pMHx. of parox. A. fib, multiple myeloma, CKD @ baseline cr. 2.5, anemia, and HTN presents with a fall and found to be anemic and pancytopenia Pancytopenia - WBC 1.06, Hgb 9.9, plt 13 today - Dr. Potts consulted -Likely related to RVD treatment -Will suspend current therapy and allow him to recover -Planning to discuss modified regimen moving forward - Platelet count at 13 today -- platelet transfusion ordered - Check AM CBC Multiple Myeloma - Initially diagnosed in 2009 - CT with lytic lesions compatible with multiple myeloma - on RVD (Lenalidomide D1-14 + Bortezomib + Dexamethasone + weekly Q21D) - consulted Dr. Potts as above - Patient working with PT/OT in the setting of his weakness related to disease and treatment - Will likely require placement after discharge--will follow with case management regarding this Neutropenia - Neutrophils at 0.53 today - Afebrile - neutropenic precautions - Given IV cefepime and vancomycin in ED, continued empirically - Blood cultures negative after 48 hours, discontinued empiric antibiotics Normocytic anemia in the setting of MM and CKD - HGB 7.5 on admission, 7.4 on recheck after transfusion with 1U -Subsequently transfused with a second unit of PRBCs - Hemoglobin stable after second unit - prior history of retroperitoneal bleed - CT pelvis w/o contrast to evaluate for recurrent retroperitoneal bleed no acute intra-abdominal or intrapelvic abnormality, finding of cholelithiasis, trace pleural effusions, diffuse lytic lesions compatible with multiple myeloma - continue to follow H&H Atrial fibrillation w/ RVR - received Metoprolol IV in the ER - monitor on telemetry - Rate now well-controlled - continue home Metoprolol Fall with right hip pain - XR hip without fracture or dislocation - No significant findings on CT A/P Elevated troponin - prior history of PEA in the setting of fall of unclear etiology - denies chest pain -Troponin on admission 0.345, decreased on recheck to 0.195 - monitor on telemetry Elevated CK <5,000 in the setting of a fall - hydration w/ 1.5 MIVF NSS - follow cr. CKD -Creatinine at baseline - continue to follow BMPs Code: Conditional CPR but not intubation Diet: regular DVT prophylaxis: SCD's given anemia Dispo: Med/Surg with Telemetry (2) Pancytopenia: (3) CKD (chronic kidney disease): (4) Paroxysmal atrial fibrillation: (5) HTN (hypertension): (6) Acute kidney injury superimposed on CKD: Admission and Anticipated Discharge Date Admission Date: September 02, 2020 Supervising Physician Co-Signing Physician Notes I personally examined the patient and verified all suther[place] points of history and exam, discussed case, and agree with decision making with Dr Bazan. feeling stronger than he did yesterday, still fairly weak but was able to stand on his own, transfer to bedside commode, etc. d/w phuong potts and beata. Vitals noted, in general he is awake and alert pleasant no distress. HEENT normocephalic atraumatic mucous membranes moist. Breathing unlabored no accessory muscle use good effort. Skin shows no rashes no pallor or icterus. Neuro no focal deficits. PancytopeniaI strongly suspect this is antineoplastic chemotherapy induced, rather than a neutropenic sepsis picture, given that he has no fever, no overt signs or symptoms of infection. stop abx. weakness- PT/OT. he would like to go home - yesterday this seemed implausible, but with his progress to today - possibly can. will follow how he progresses and how he does with therapy CKD 4noted Myocardial demand ischemianoted otherwise as above Subjective Patient was seen at bedside today. Mentions that he is feeling somewhat better than when he initially came in. Still reports that he is feeling very tired and weak, specifically mentions that his goal is to be able to roll to his side in bed and he has not been able to do that. He says that yesterday he attempted to work twice with physical therapy. The first time he felt very lightheaded just sitting at the edge of bed and the second time he felt like he would not tolerate this again so declined to attempt. Does report that he has been eating and hydrating well. Review of Systems Review of Systems: All systems reviewed & are unremarkable except as noted in Subjective Physical Exam Constitutional: WD/WN, vitals as above Eyes: PERRL, conjunctivae normal, anicteric sclerae ENMT: external ear and nose normal, oropharynx normal Neck: normal visual inspection Respiratory: normal respiratory effort, lungs clear to auscultation Cardiovascular: RRR, no murmur, no edema Gastrointestinal (Abdomen): normal bowel sounds, soft, nontender, no hepatosplenomegaly Skin: no rashes, warm and dry Neurologic: no focal motor deficits Psychiatric: Orientation: alert and oriented x 3 Eye Contact: good eye contact Affect: euthymic affect Results & Data Results & Data ([facility]) Vital Signs (Past 12 Hours) Vital Signs Temp Pulse Pulse Resp BP BP Pulse Ox 09/04/20 07:54 36.4 C L 66 16 113/72 98 09/04/20 04:00 36.9 C 74 18 119/73 98 09/04/20 00:47 78 09/03/20 23:25 36.7 C 78 18 103/59 L 97 Resident Activity Tracking Resident Involvement: Resident Care Provided Care Provided: Adult Hospital Medicine
--- NOTE | 2020-09-04 12:13 | Billing Data ---
Date of Service September 02, 2020 Coding Level of Care Code 34998 Initial Inpt Care Lvl 3
--- NOTE | 2020-09-04 13:47 | Progress Notes ---
DATE: 09/04/2020 DIAGNOSIS: Relapsed IgG kappa multiple myeloma. INTERIM HISTORY: The patient was admitted to [facility] yesterday morning after he had been home for approximately 2 weeks, recently started salvage Revlimid, Velcade and dexamethasone at [facility]. This gentleman apparently fell while going to the bathroom. He regained consciousness and was able to crawl to a phone where he contacted his friend and made arrangements to bring him to [facility]. The patient's performance status has declined significantly without completing his initial cycle of combination chemotherapy. He is profoundly pancytopenic and now hospitalized with an inability to ambulate without assistive devices or assistance. His platelet count remains 13,000. The patient, as you know, has battled with the plasma cell dyscrasia for 11 years. He has received pretty much the gamut of viable therapies including autologous peripheral blood stem cell transplant. I anticipated, when offered salvage therapy myelosuppression would most likely be profound and definitely feel an aggressive approach would be risky. That said, proceeding aggressively has resulted in patient's hospitalization. At this juncture, I would like to suspend therapy and discussed this with patient at bedside today. I get a sense patient understands the reality; however, still would like to continue fighting on. 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 Malik who had relationship with early in the disease course. Dr. Malik now works for [facility] and will instruct my staff to make arrangements for him to have a consultation. I briefly discussed the utility of perhaps a significantly modified course of treatment moving forward. However, I do not feel that a modified course would do much in necessarily prolonging his life. I suspect once Dr. Malik's visits with patient, he will see his performance status is suboptimal and can imagine him Dr. Malik recommending an aggressive approach. I briefly discussed the possibility of melphalan and prednisone, which is an old regimen, however, can be quite myelosuppressive in itself. I briefly discussed the possibility of pursuing a palliative avenue where we would provide transfusional support, pain management and other medical therapies outside of mechanical ventilation, intubation and hemodialysis. I reminded the patient that he is already outlived the standard survival as it pertains to multiple myeloma. Briefly discussed patient's disposition with Dr. Marroquin and Dr. Kennedy. We collectively agree, Kitr probably is not safe to go home without further physical therapy. The patient admitted he really does not have 24-hour support at home and thus would be better served to be discharged to an assisted living facility. I have agreed to reconvene with the patient once he speaks to Dr. Malik and has fully recovered to discuss therapeutic options moving forward. I made it very clear to him; however, I would be unwilling to participate in treatment that I know will probably result in more harm than benefit. If there are any further questions or concerns, feel free to contact me by phone. I will continue to see the patient as long as he remains at [facility] and perhaps see him upon discharge in outpatient clinic. REYNALDO
--- NOTE | 2020-09-04 16:38 | Billing Data ---
Date of Service September 04, 2020 Coding Level of Care Code 74217 Subseq Hosp Care Lvl 3
[2020-09-04] MEDS: MIRTAZAPINE TAB 15 MG TAB PO SCH (20:41)
[2020-09-04] MEDS: DOXEPIN HCL 25 MG CAPSULE PO SCH (20:42)
[2020-09-05] MEDS: ACYCLOVIR 400 MG TAB PO SCH ×2 (08:11→20:24)
[2020-09-05] MEDS: POTASSIUM CHLORIDE CRTAB 20 MEQ TABCR PO SCH (08:11)
[2020-09-05] MEDS: FLUTICASONE PROPIONATE NA SPR 16 GM BTL SCH (08:11)
[2020-09-05] MEDS: GABAPENTIN 100 MG CAP PO SCH ×3 (08:11→20:23)
[2020-09-05] MEDS: PANTOprazole 40 MG TAB PO SCH ×2 (08:11→20:23)
[2020-09-05] MEDS: METOPROLOL TARTRATE 25 MG TAB PO SCH (08:11)
[2020-09-05] MEDS: SUCRALFATE 1 GM TAB PO SCH ×4 (08:11→20:21)
[2020-09-05] MEDS: guaiFENesin 600 MG TABCR PO SCH ×2 (08:11→20:24)
[2020-09-05 08:14] LABS: Hematocrit (blood only) 28.5 % (42-52); Hemoglobin 9.9 g/dL (14.0-18.0); Mean Corpuscular Hemoglobin 33.6 pg (25-34); Mean Corpuscular Hgb Conc 34.7 g/dL (32-36); Mean Corpuscular Volume 96.6 fL (80-100); Mean Platelet Volume 12.7 fL (7.4-10.4); Platelet Count 40 K/uL (130-400); RDW Coefficient of Variation 19.5 % (11.5-14.5); RDW Standard Deviation 68.5 fL (36.4-46.3); Red Blood Count 2.95 M/uL (4.7-6.1); White Blood Count 1.04 K/uL (4.8-10.8)
[2020-09-05 08:18] LABS: Creatinine Clr Calc Pharmacy 36.2 ml/min; Est GFR (African American) 34.1; Est GFR (Non-African American) 29.4
[2020-09-05 08:25] LABS: BUN Creatinine Ratio 8.7 (10-20); Calcium 7.2 mg/dl (8.5-10.1); Creatinine Clr Calc Pharmacy 36.2 ml/min; Est GFR (African American) 34.1; Est GFR (Non-African American) 29.4
[2020-09-05 08:34] LABS: Anisocytosis Present; Eosinophils # (auto) 0.07 K/uL (0-0.5); Eosinophils % (auto) 6.7 %; Immature Granulocytes # (auto) 0.02 K/uL (0.00-0.02); Immature Granulocytes % (auto) 1.9 %; Lymphocytes % (auto) 38.5 %; Monocytes # (auto) 0.15 K/uL (0.11-0.59); Monocytes % (auto) 14.4 %; Neutrophils % (auto) 38.5 %; Tear Drop Cells Occasional
--- NOTE | 2020-09-05 09:31 | Hospitalist Progress Note ---
Date of Service September 05, 2020 Assessment & Plan (1) Multiple myeloma: 65 yo M w/ pMHx. of parox. A. fib, multiple myeloma, CKD @ baseline cr. 2.5, anemia, and HTN presents with a fall and found to be anemic and pancytopenia Disposition - Patient working with PT/OT in the setting of his weakness related to disease and treatment - At this point consideration for disposition of whether patient will be able to return home or will need to be placed in assisted living facility - Currently PT recommending SNF placement; however, patient has been improving on his 6 click score and he has a vast preference for returning home - He does have good support that visit daily and his home is a single level so he has a good probability of managing well there - We will allow him to work with PT/OT tomorrow as well and likely discharge him home Pancytopenia - WBC 1.04, Hgb 9.9, plt 40 today - Dr. Potts consulted -Likely related to RVD treatment -Will suspend current therapy and allow him to recover -Planning to discuss modified regimen moving forward - Platelet count increased from 13 to 40 after transfusion - Check AM CBC Multiple Myeloma - Initially diagnosed in 2009 - CT with lytic lesions compatible with multiple myeloma - on RVD (Lenalidomide D1-14 + Bortezomib + Dexamethasone + weekly Q21D) treatment suspended at this point - consulted Dr. Potts as above Neutropenia - Neutrophils at 0.53 today - Afebrile - neutropenic precautions - Given IV cefepime and vancomycin in ED, continued empirically - Blood cultures negative after 48 hours, discontinued empiric antibiotics Normocytic anemia in the setting of MM and CKD - HGB 7.5 on admission, 7.4 on recheck after transfusion with 1U -Subsequently transfused with a second unit of PRBCs - Hemoglobin remains stable - prior history of retroperitoneal bleed - CT pelvis w/o contrast to evaluate for recurrent retroperitoneal bleed no acute intra-abdominal or intrapelvic abnormality, finding of cholelithiasis, trace pleural effusions, diffuse lytic lesions compatible with multiple myeloma - continue to follow H&H Atrial fibrillation w/ RVR - received Metoprolol IV in the ER - monitor on telemetry - Rate now well-controlled - continue home Metoprolol Fall with right hip pain - XR hip without fracture or dislocation - No significant findings on CT A/P Elevated troponin - prior history of PEA in the setting of fall of unclear etiology - denies chest pain -Troponin on admission 0.345, decreased on recheck to 0.195 - monitor on telemetry CKD -Creatinine at baseline - continue to follow BMPs Code: Conditional CPR but not intubation Diet: regular DVT prophylaxis: SCD's given anemia Dispo: Med/Surg with Telemetry (2) CKD (chronic kidney disease): (3) Pancytopenia: (4) Paroxysmal atrial fibrillation: (5) HTN (hypertension): Admission and Anticipated Discharge Date Admission Date: September 02, 2020 Supervising Physician Co-Signing Physician Notes I personally examined the patient and verified all sutherland points of history and exam, discussed case, and agree with decision making with Dr Bazan. Feeling stronger and did fairly well with PT today. Does not quite feel up to being able to be at home, but thinks he is likely going to continue to progress, and hopefully will not need to go to SNF. Vitals noted, in general he is awake and alert pleasant no distress. HEENT normocephalic atraumatic mucous membranes moist. Breathing unlabored no accessory muscle use good effort. Skin shows no rashes no pallor or icterus. Neuro no focal deficits. PancytopeniaI strongly suspect this is antineoplastic chemotherapy induced, rather than a neutropenic sepsis picture, given that he has no fever, no overt signs or symptoms of infection. Antibiotics stopped on 09/04. weakness- PT/OT. he would like to go home rather than SNF, does not feel ready yet, but is showing good progress that this seems realistic. Continue to follow closely. CKD 4noted Myocardial demand ischemianoted otherwise as above Subjective Patient reports feeling somewhat better this morning, but he is still weak. Mentions that he has been able to turn over in bed. Discussed yesterday that he was actually able to stand on his own and take a few steps at bedside, as well as use the bedside commode. At this point patient is hoping to be able to return home from hospital and not need placement. Review of Systems Review of Systems: All systems reviewed & are unremarkable except as noted in Subjective Physical Exam Constitutional: WD/WN, vitals as above Eyes: PERRL, conjunctivae normal, anicteric sclerae ENMT: external ear and nose normal, oropharynx normal Neck: normal visual inspection Respiratory: normal respiratory effort, lungs clear to auscultation Cardiovascular: RRR, no murmur, no edema Gastrointestinal (Abdomen): normal bowel sounds, soft, nontender, no hepatosplenomegaly Skin: no rashes, warm and dry Neurologic: no focal motor deficits Psychiatric: Orientation: alert and oriented x 3 Eye Contact: good eye contact Affect: euthymic affect Results & Data Results & Data ([facility]) Vital Signs (Past 12 Hours) Vital Signs Temp Pulse Pulse Resp BP BP Pulse Ox 09/05/20 08:07 36.5 C 69 18 126/78 98 09/05/20 03:53 36.8 C 74 16 104/67 98 09/04/20 23:41 70 09/04/20 23:00 36.9 C 71 18 117/65 98 Resident Activity Tracking Resident Involvement: Resident Care Provided Care Provided: Adult Hospital Medicine
--- NOTE | 2020-09-05 16:37 | Billing Data ---
Date of Service September 05, 2020 Coding Level of Care Code 79326 Subseq Hosp Care Lvl 2
[2020-09-05] MEDS: MIRTAZAPINE TAB 15 MG TAB PO SCH (20:20)
[2020-09-05] MEDS: DOXEPIN HCL 25 MG CAPSULE PO SCH (20:24)
[2020-09-06 06:34] LABS: BUN Creatinine Ratio 8.1 (10-20); Calcium 7.2 mg/dl (8.5-10.1); Creatinine Clr Calc Pharmacy 35.3 ml/min; Est GFR (African American) 33.2; Est GFR (Non-African American) 28.7; Potassium 3.8 mmol/L (3.5-5.1)
[2020-09-06 06:51] LABS: Eosinophils # (auto) 0.06 K/uL (0-0.5); Eosinophils % (auto) 5.3 %; Hemoglobin 9.5 g/dL (14.0-18.0); Immature Granulocytes # (auto) 0.01 K/uL (0.00-0.02); Immature Granulocytes % (auto) 0.9 %; Lymphocytes # (auto) 0.55 K/uL (1.2-3.4); Lymphocytes % (auto) 48.7 %; Mean Corpuscular Hemoglobin 33.9 pg (25-34); Mean Corpuscular Hgb Conc 35.2 g/dL (32-36); Mean Corpuscular Volume 96.4 fL (80-100); Mean Platelet Volume 9.9 fL (7.4-10.4); Monocytes # (auto) 0.17 K/uL (0.11-0.59); Neutrophils # (auto) 0.34 K/uL (1.4-6.5); Neutrophils % (auto) 30.1 %; Platelet Count 25 K/uL (130-400); Platelet Estimate SIGNIFIC DECREASED (Normal); RDW Coefficient of Variation 18.7 % (11.5-14.5); White Blood Count 1.13 K/uL (4.8-10.8)
[2020-09-06] MEDS: ACYCLOVIR 400 MG TAB PO SCH ×2 (07:51→20:15)
[2020-09-06] MEDS: POTASSIUM CHLORIDE CRTAB 20 MEQ TABCR PO SCH (07:51)
[2020-09-06] MEDS: GABAPENTIN 100 MG CAP PO SCH ×3 (07:51→20:16)
[2020-09-06] MEDS: METOPROLOL TARTRATE 25 MG TAB PO SCH (07:51)
[2020-09-06] MEDS: SUCRALFATE 1 GM TAB PO SCH ×4 (07:51→20:14)
[2020-09-06] MEDS: PANTOprazole 40 MG TAB PO SCH ×2 (07:51→20:16)
[2020-09-06] MEDS: guaiFENesin 600 MG TABCR PO SCH ×2 (07:52→20:15)
[2020-09-06] MEDS: FLUTICASONE PROPIONATE NA SPR 16 GM BTL SCH (07:52)
--- NOTE | 2020-09-06 14:01 | Hospitalist Progress Note ---
Date of Service September 06, 2020 Assessment & Plan (1) Multiple myeloma: 65 yo M w/ pMHx. of parox. A. fib, multiple myeloma, CKD @ baseline cr. 2.5, anemia, and HTN presents with a fall and found to be anemic and pancytopenia Disposition - Patient working with PT/OT in the setting of his weakness related to disease and treatment - At this point consideration for disposition of whether patient will be able to return home or will need to be placed in assisted living facility -Patient scoring 22 points on 6 clicks today, at this point PT recommending return to home at discharge - He does have good support that visit daily and his home is a single level so he has a good probability of managing well there -Patient agreeable with plan to return home, but does prefer a slower approach and feels he would be better served resting an additional night in the hospital being discharged home likely tomorrow Subcutaneous Lump -New onset, per patient -Located at area where he was getting cancer treatment injections, so likely that this is a limited amount of fatty tissue necrosis -Lower on the differential is the possibility of a small hematoma under the skin versus an infection starting -We will reassess tomorrow if lump has grown or gotten worse, consider needle aspiration to evaluate contents lump Pancytopenia - WBC 1.04, Hgb 9.9, plt 40 today - Dr. Potts consulted -Likely related to RVD treatment -Will suspend current therapy and allow him to recover -Planning to discuss modified regimen moving forward versus stopping treatment altogether - Platelet count increased from 13 to 40 after transfusion - Check AM CBC Multiple Myeloma - Initially diagnosed in 2009 - CT with lytic lesions compatible with multiple myeloma - on RVD (Lenalidomide D1-14 + Bortezomib + Dexamethasone + weekly Q21D) treatment suspended at this point - consulted Dr. Potts as above Neutropenia - Neutrophils at 0.53 today - Afebrile - neutropenic precautions - Given IV cefepime and vancomycin in ED, continued empirically - Blood cultures negative after 48 hours, discontinued empiric antibiotics Normocytic anemia in the setting of MM and CKD - HGB 7.5 on admission, 7.4 on recheck after transfusion with 1U -Subsequently transfused with a second unit of PRBCs - Hemoglobin remains stable - prior history of retroperitoneal bleed - CT pelvis w/o contrast to evaluate for recurrent retroperitoneal bleed no acute intra-abdominal or intrapelvic abnormality, finding of cholelithiasis, trace pleural effusions, diffuse lytic lesions compatible with multiple myeloma - continue to follow H&H Atrial fibrillation w/ RVR - resolved - received Metoprolol IV in the ER - monitor on telemetry - Rate now well-controlled - continue home Metoprolol Fall with right hip pain - XR hip without fracture or dislocation - No significant findings on CT A/P Elevated troponin - prior history of PEA in the setting of fall of unclear etiology - denies chest pain -Troponin on admission 0.345, decreased on recheck to 0.195 - monitor on telemetry CKD -Creatinine at baseline - continue to follow BMPs Code: Conditional CPR but not intubation Diet: regular DVT prophylaxis: SCD's given anemia Dispo: Med/Surg with Telemetry (2) CKD (chronic kidney disease): (3) Pancytopenia: (4) Paroxysmal atrial fibrillation: (5) HTN (hypertension): Admission and Anticipated Discharge Date Admission Date: September 02, 2020 Supervising Physician Co-Signing Physician Notes I personally examined the patient and verified all [place] points of history and exam, discussed case, and agree with decision making with Dr Bazan. Did much better with PT today. Feels like he would probably be okay at home. Biggest complaint now is a new fairly sore lump on his right lower abdomen. He notes that is where he had any cancer treatment injection about 2 weeks ago, but just noticed the lump show up over the last day. Vitals noted, in general he is awake and alert pleasant no distress. HEENT normocephalic atraumatic mucous membranes moist. Breathing unlabored no accessory muscle use good effort. Skin shows no rashes no pallor or icterus, but his right lower abdomen does show fairly firm area that is about 2-1/2 cm by about a half a centimeter, discretely palpable, with a dull pink skin discoloration over it, it is quite tender. Neuro no focal deficits. PancytopeniaI strongly suspect this is antineoplastic chemotherapy induced, rather than a neutropenic sepsis picture, given that he has no fever, no overt signs or symptoms of infection. Antibiotics stopped on 09/04. weakness- PT/OThe is showing good improvement. Abdominal wall lesiongiven the timing after injection, hematoma, while most common, seems a little less likely. I do wonder about a focused area of scarring/necrotic tissue from the injection, and we will watch him into tomorrow just for the possibility of infectionparticularly given how immune compromised he is. That said it does not look overtly infectious, and empiric antibiotics do not appear to be warranted given the rest of his clinical presentation, just serial exams. CKD 4noted Myocardial demand ischemianoted otherwise as above Subjective Patient doing overall well this morning. Able to work with PT to a higher capacity today than yesterday. Does report that today he noticed a subcutaneous lump on the right side of his lower belly about 2 inches lateral from his bellybutton. Says it is somewhat tender. He says this is the site where he had been getting some of the injections for his cancer treatment. Remains afebrile, no nausea, no vomiting, no cough, no infectious symptoms. Review of Systems Review of Systems: All systems reviewed & are unremarkable except as noted in Subjective Physical Exam Constitutional: WD/WN, vitals as above Eyes: PERRL, conjunctivae normal, anicteric sclerae ENMT: external ear and nose normal, oropharynx normal Neck: normal visual inspection Respiratory: normal respiratory effort, lungs clear to auscultation Cardiovascular: RRR, no murmur, no edema Gastrointestinal (Abdomen): normal bowel sounds, soft, nontender, no hepatosplenomegaly Skin: no rashes, warm and dry Neurologic: no focal motor deficits Psychiatric: Orientation: alert and oriented x 3 Eye Contact: good eye contact Affect: euthymic affect Results & Data Results & Data ([facility]) Vital Signs (Past 12 Hours) Vital Signs Temp Pulse Pulse Resp BP BP Pulse Ox 09/06/20 11:03 36.9 C 72 19 111/64 98 09/06/20 07:12 68 09/06/20 03:12 36.7 C 75 16 116/66 98 Resident Activity Tracking Resident Involvement: Resident Care Provided Care Provided: Adult Hospital Medicine
--- NOTE | 2020-09-06 14:39 | Billing Data ---
Date of Service September 06, 2020 Coding Level of Care Code 81468 Subseq Hosp Care Lvl 3
[2020-09-06] MEDS: MIRTAZAPINE TAB 15 MG TAB PO SCH (20:14)
[2020-09-06] MEDS: DOXEPIN HCL 25 MG CAPSULE PO SCH (20:17)
[2020-09-07 07:32] LABS: Calcium 7.4 mg/dl (8.5-10.1); Creatinine Clr Calc Pharmacy 35.5 ml/min; Est GFR (African American) 33.4; Est GFR (Non-African American) 28.8; Potassium 4.2 mmol/L (3.5-5.1)
[2020-09-07 08:08] LABS: Hematocrit (blood only) 25.8 % (42-52); Hemoglobin 8.8 g/dL (14.0-18.0); Mean Corpuscular Hemoglobin 32.7 pg (25-34); Mean Corpuscular Hgb Conc 34.1 g/dL (32-36); Mean Corpuscular Volume 95.9 fL (80-100); Platelet Count 36 K/uL (130-400); Red Blood Count 2.69 M/uL (4.7-6.1); White Blood Count 1.56 K/uL (4.8-10.8)
[2020-09-07 08:09] LABS: Eosinophils # (auto) 0.06 K/uL (0-0.5); Eosinophils % (auto) 3.8 %; Lymphocytes # (auto) 0.68 K/uL (1.2-3.4); Lymphocytes % (auto) 43.6 %; Monocytes # (auto) 0.26 K/uL (0.11-0.59); Monocytes % (auto) 16.7 %; Neutrophils % (auto) 35.9 %; Platelet Estimate SIGNIFIC DECREASED (Normal); Tear Drop Cells Occasional
[2020-09-07 08:10] LABS: Neutrophils # (auto) 0.56 K/uL (1.4-6.5)
[2020-09-07] MEDS: SUCRALFATE 1 GM TAB PO SCH ×4 (08:13→21:42)
[2020-09-07] MEDS: GABAPENTIN 100 MG CAP PO SCH ×3 (08:13→21:44)
[2020-09-07] MEDS: ACYCLOVIR 400 MG TAB PO SCH ×2 (08:13→21:43)
[2020-09-07] MEDS: FLUTICASONE PROPIONATE NA SPR 16 GM BTL SCH (08:13)
[2020-09-07] MEDS: METOPROLOL TARTRATE 25 MG TAB PO SCH (08:14)
[2020-09-07] MEDS: POTASSIUM CHLORIDE CRTAB 20 MEQ TABCR PO SCH (08:14)
[2020-09-07] MEDS: guaiFENesin 600 MG TABCR PO SCH ×2 (08:14→21:43)
[2020-09-07] MEDS: PANTOprazole 40 MG TAB PO SCH ×2 (08:14→21:45)
[2020-09-07] MEDS ORDERED: LIDOCAINE 4% CREAM 15 GM TUBE EXT ONE (10:14)
--- NOTE | 2020-09-07 15:18 | Hospitalist Progress Note ---
Date of Service September 07, 2020 Assessment & Plan (1) Multiple myeloma: 65 yo M w/ pMHx. of parox. A. fib, multiple myeloma, CKD @ baseline cr. 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, per patient -Located at area where he was getting cancer treatment injections -Attempted aspiration this PM did not reveal any fluid -Lower on the differential is the possibility of a small hematoma under the skin versus an infection starting -Suspect small pocket of lipodystrophy -- hematoma and abscess seem less likely at this point -If growing/becoming more painful, consider US Pancytopenia - CBC largely unchanged through 09/07 - Hematology/Oncology following: -Likely related to RVD treatment -Will suspend current therapy and allow him to recover -Planning to discuss modified regimen moving forward versus stopping treatment altogether - Platelet count increased from 13 to 40 after transfusion x 1 - CBC qAM Multiple Myeloma - Initially diagnosed in 2009 - CT with lytic lesions compatible with multiple myeloma - on RVD (Lenalidomide D1-14 + Bortezomib + Dexamethasone + weekly Q21D) treatment suspended at this point - Heme/Onc following Neutropenia -- in setting of Pancytopenia - Moderately increasing since admission -- ANC still ~560 K/uL - Afebrile, without signs of illness - ChemoRX/Neutropenia precautions - Given IV cefepime and vancomycin in ED --> BCX NGTD --> d/c ABX - CBC as above Normocytic Anemia -- in the setting of MM and CKD (s/p 1 U pRBC) - HGB 7.5 on admission --> s/p 2U pRBC - Hgb stable around 9-10 since transfusions - Prior history of retroperitoneal bleed -- CT-A/P without evidence of recurrent bleed - Trend H&H Atrial fibrillation w/ RVR - resolved - Intermittently flipping between AF/NSR - Rate now well-controlled - continue home Metoprolol - CCM Fall with right hip pain - XR hip without fracture or dislocation - No significant findings on CT A/P Elevated troponin - prior history of PEA in the setting of fall of unclear etiology - denies chest pain - troponin on admission 0.345, decreased on recheck to 0.195 - monitor symptomatically, CCM CKD - Creatinine at baseline - continue to follow BMPs Code: Conditional CPR but not intubation Diet: regular DVT prophylaxis: SCD's given anemia Dispo: Med/Surg with Telemetry (2) CKD (chronic kidney disease): (3) Pancytopenia: (4) Paroxysmal atrial fibrillation: (5) HTN (hypertension): Admission and Anticipated Discharge Date Admission Date: September 02, 2020 Supervising Physician Co-Signing Physician Notes I personally examined the patient and verified all [place] points of history and exam, discussed case, and agree with decision making with Dr Moses. Overall feeling okay. Would like another day or so for confidence, but would very much like to go home as soon as tomorrow. Spot on abdomen may be a little bit more tender, certainly not less. Would prefer we attempt to aspirate to better determine what it is. Otherwise no new issues. Vitals noted, in general he is awake and alert pleasant no distress. HEENT normocephalic atraumatic mucous membranes moist. Breathing unlabored no accessory muscle use good effort. Skin shows no rashes no pallor or icterus, but his right lower abdomen does show fairly firm area that is about 3-4 cm by about a half a centimeter, discretely palpable,dull pink skin discoloration is less than yesterday, it is quite tender. After informed consent, area cleaned with Betadine, sterile technique utilized, with a 20-gauge needle Dr. Moses attempted aspiration under my supervision with no return. Patient tolerated well. Neuro no focal deficits. PancytopeniaI strongly suspect this is antineoplastic chemotherapy induced, rat her than a neutropenic sepsis picture, given that he has no fever, no overt signs or symptoms of infection. Antibiotics stopped on 09/04. weakness- PT/OThe is showing good improvement, and anticipate he will be stable for home tomorrow.. Abdominal wall lesiongiven the timing after injection, hematoma, while most common, seems a little less likely. I do wonder about a focused area of scarring/necrotic tissue from the injection, with nothing attainable on aspiration, infection seems far less likely, especially given that it is not surrounded by anything consistent with cellulitis. Watchful waiting, ultrasound if it continues to bother him. CKD 4noted Myocardial demand ischemianoted otherwise as above, anticipate discharge home tomorrow Subjective No acute events overnight. At the bedside this morning, patient reports feeling well overall. Denies any fevers, chills, night sweats. Says that the lump in his belly is somewhat tender still, does not feel like it is growing or become more red however. Endorses a good appetite. No other questions this morning. Looking forward to working more with PT/OT Review of Systems Review of Systems: As per HPI Physical Exam Physical Exam: General: Frail appearing 65-year-old gentleman who is alert, oriented, and appears in no acute distress. HEENT: NCAT. Eyes - Sclera are white, anicteric, and without injection. PERRL. EOMs display full ROM bilaterally grossly. Cardiac: Normal rate and irregular rhythm; S1 and S2 present with no murmurs, rubs, or gallops. Pulmonary: Good respiratory effort with symmetric expansion of the chest. No use of accessory muscles. Lungs were clear to auscultation bilaterally with no crackles or wheezes. Abdominal: Normoactive bowel sounds. There is a 2 x 4 cm mildly erythematouspurple patch in the right lower quadrant, deep palpation does reveal a small area of induration. Abdomen was soft, nondistended, and non- tender to palpation otherwise. Psych: Well-developed, well-nourished, appropriately dressed for occasion. Behavior is cooperative and appropriate. Affect is WNL. Insight is appropriate. Results & Data Results & Data ([facility]) Vital Signs (Past 12 Hours) Vital Signs Temp Pulse Pulse Pulse Resp BP Pulse Ox 09/07/20 13:55 136/92 09/07/20 12:51 36.7 C 62 19 142/100 H 100 09/07/20 08:45 64 18 136/98 09/07/20 07:40 65 09/07/20 07:09 36.8 C 72 18 144/73 H 98 09/07/20 03:44 36.6 C 64 18 122/60 96
--- NOTE | 2020-09-07 16:53 | Billing Data ---
Date of Service September 07, 2020 Coding Level of Care Code 87839 Subseq Hosp Care Lvl 3
[2020-09-07] MEDS: DOXEPIN HCL 25 MG CAPSULE PO SCH (21:42)
[2020-09-07] MEDS: MIRTAZAPINE TAB 15 MG TAB PO SCH (21:45)
[2020-09-08 07:55] LABS: Albumin Level 2.2 gm/dl (3.4-5.0); BUN Creatinine Ratio 6.9 (10-20); Calcium 8.5 mg/dl (8.5-10.1); Est GFR (African American) 32.9; Est GFR (Non-African American) 28.4
[2020-09-08 07:58] LABS: Albumin Globulin Ratio 0.6 (0.9-2); Bilirubin,Total 0.6 mg/dl (0.2-1); Globulin 3.9 gm/dl (2.5-4.0); Total Protein 6.1 gm/dl (6.4-8.2)
[2020-09-08 08:09] LABS: Mean Corpuscular Hgb Conc 35.7 g/dL (32-36); Mean Corpuscular Volume 95.2 fL (80-100); Platelet Count 21 K/uL (130-400); RDW Coefficient of Variation 18.1 % (11.5-14.5); RDW Standard Deviation 61.9 fL (36.4-46.3); Red Blood Count 2.94 M/uL (4.7-6.1); White Blood Count 1.66 K/uL (4.8-10.8)
[2020-09-08 08:15] LABS: Eosinophils # (auto) 0.03 K/uL (0-0.5); Eosinophils % (auto) 1.8 %; Immature Granulocytes # (auto) 0.01 K/uL (0.00-0.02); Immature Granulocytes % (auto) 0.6 %; Lymphocytes # (auto) 0.77 K/uL (1.2-3.4); Lymphocytes % (auto) 46.4 %; Monocytes # (auto) 0.38 K/uL (0.11-0.59); Monocytes % (auto) 22.9 %; Neutrophils # (auto) 0.47 K/uL (1.4-6.5); Neutrophils % (auto) 28.3 %; Ovalocytes 1+; Platelet Estimate SIGNIFIC DECREASED (Normal)
[2020-09-08] MEDS: SUCRALFATE 1 GM TAB PO SCH ×2 (08:15→11:35)
[2020-09-08] MEDS: METOPROLOL TARTRATE 25 MG TAB PO SCH (08:15)
[2020-09-08] MEDS: GABAPENTIN 100 MG CAP PO SCH ×2 (08:16→14:19)
[2020-09-08] MEDS: PANTOprazole 40 MG TAB PO SCH (08:16)
[2020-09-08] MEDS: guaiFENesin 600 MG TABCR PO SCH (08:16)
[2020-09-08] MEDS: ACYCLOVIR 400 MG TAB PO SCH (08:16)
[2020-09-08] MEDS: AMIODARONE 200 MG TAB PO SCH (08:17)
[2020-09-08] MEDS: POTASSIUM CHLORIDE CRTAB 20 MEQ TABCR PO SCH (08:17)
[2020-09-08] MEDS: FLUTICASONE PROPIONATE NA SPR 16 GM BTL SCH (08:19)
--- NOTE | 2020-09-08 13:23 | Discharge Summary ---
Date of Service September 08, 2020 Admission HPI Per Admitting Provider Kirt Collins is here for a fall. He does not remember the fall but thinks it may have happened at around 1AM last night, he woke up in the bathroom and then attempted to crawl to his bedroom where he was able to get to a phone. The day prior he was feeling weak and was concerned that he might be anemic. He also was concerned that he might have low potassium since he was told that this was low and he would have to increase his potassium dose. He ate last on Tuesday at 4-5 PM. He woke up on his left side but had right sided hip pain that was a dull ache. He took his home medications last on Friday 09/01. Cardiology saw him last during an admission on 03/09/2020 and added Amiodarone at that time, but he has not been taking this at home. Last seen by nephrology on 08/09/20 where they noted that his baseline cr. was 2.5 Last oncology note from 07/28. ED course metoprolol 5mg IV for a fib w/ rvr, KCL 40 oral, magnesium, started cefepime and Vancomycin Admission Exam Per Admitting Provider Constitutional: WD/WN, vitals as above Eyes: PERRL, conjunctivae normal, anicteric sclerae ENMT: external ear and nose normal, oropharynx normal Neck: normal visual inspection Respiratory: normal respiratory effort, lungs clear to auscultation Cardiovascular: Rate/Rhythm: + irregularly irregular Extremities: + edema (1+ bilaterally) Gastrointestinal (Abdomen): Inspection/Auscultation: abdomen normal to inspection; abdomen not distended Skin: no rashes, warm and dry Neurologic: no focal motor deficits Psychiatric: Orientation: alert and oriented x 3 Eye Contact: good eye contact Affect: euthymic affect Principal Diagnosis Pancytopenia secondary to chemotherapy Discharge Exam General: alert, oriented, and appears in no acute distress. HEENT: NCAT. Eyes - Sclera are white, anicteric, and without injection. PERRL. EOMs display full ROM bilaterally grossly. Cardiac: Normal rate and irregular rhythm; S1 and S2 present with no murmurs, rubs, or gallops. Pulmonary: Good respiratory effort with symmetric expansion of the chest. No use of accessory muscles. Lungs were clear to auscultation bilaterally with no crackles or wheezes. Abdominal: Normoactive bowel sounds. There is a 2 x 4 cm mildly erythematouspurple patch in the right lower quadrant, deep palpation does reveal a small area of induration. Abdomen was soft, nondistended, and non- tender to palpation otherwise. Psych: Behavior is cooperative and appropriate. Euthymic affect. Insight is appropriate. Discharge Data Allergies Allergy/AdvReac Type Severity Reaction Status Date / Time epinephrine Allergy Intermediate STATES Verified 09/02/20 14:56 GETS A "WARNER" levofloxacin Allergy Intermediate RASH Verified 09/02/20 14:56 Sulfa (Sulfonamide Allergy Intermediate Rash Verified 09/02/20 14:56 Antibiotics) house dust Allergy Unknown Itchy Verified 09/02/20 14:56 Eye(s) Consultations 09/02/20 16:08 ED Decision to Admit Stat 09/02/20 20:52 Consult Hematology Routine Ordered Studies 09/02/20 15:00 CT head/brain wo con Stat 09/03/20 01:51 CT abd pelvis wo con Urgent Hospital Course (1) Multiple myeloma: 65 yo M w/ pMHx. of parox. A. fib, multiple myeloma, CKD @ baseline cr. 2.5, anemia, and HTN who presented with a fall and found to be pancytopenic in the setting of chemotherapy for multiple myeloma. Pancytopenia - CBC largely stable through 09/08 (discharge date) - Hematology/Oncology consulted: -Likely related to RVD treatment -Outpatient oncology discussion. * Thrombocytopenia - Received platelet transfusion x1, which did stabilize his platelet count, though at discharge still very diminished - Recommend outpatient monitoring of blood counts * Neutropenia - Afebrile, without signs of illness - Given IV cefepime and vancomycin in ED --> BCX negative after 48h --> d/c ABX * Normocytic Anemia -- in the setting of MM and CKD (s/p 1 U pRBC) - HGB 7.5 on admission --> s/p 2U pRBC - Hgb stable around 9-10 since transfusions - Prior history of retroperitoneal bleed -- CT-A/P without evidence of recurrent bleed Multiple Myeloma - Initially diagnosed in 2009 - CT with lytic lesions compatible with multiple myeloma - Was on RVD (Lenalidomide D1-14 + Bortezomib + Dexamethasone + weekly Q21D) treatment suspended at this point - Heme/Onc consulted and discussed likely cessation of treatment -- consider outpatient f/u if indicated Atrial fibrillation w/ RVR - resolved - Intermittently flipping between AF/NSR - Rate well-controlled at discharge - continued home Metoprolol Fall with right hip pain - XR hip without fracture or dislocation - No significant findings on CT A/P Elevated troponin - denied chest pain throughout admission - troponin on admission 0.345, decreased on recheck to 0.195 Subcutaneous Lump in RLQ - 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 CKD - Creatinine at baseline (2) CKD (chronic kidney disease): (3) Pancytopenia: (4) Paroxysmal atrial fibrillation: (5) HTN (hypertension): Total Time Total Time Spent Total Time Spent (In Minutes): see attending attestation Discharge Plan Discharge Items Patient Disposition: Home - Self-Care Reason For Visit: FALL, PANCYTOPENIA Discharge Diagnosis: Pancytopenia Activity: Per Instructions section Non-emergency contact: Primary Care Provider and Oncologist Call non-emergency contact if: you have any medication questions and your symptoms worsen Follow-up/Referrals: Jeanne Ellis Osburn [Primary Care Provider] - Diet: Regular Addtl Attending Provider Instructions: You were admitted to [facility] due to weakness and an unexplained fall at home. While in the hospital you were found to have severely decreased blood counts including white blood cells, hemoglobin, and platelets. Your hemoglobin remained stable throughout admission. However, your platelets were concerningly low and as such, you were given a platelet transfusion. At this point your platelet count stabilized to acceptable levels. You were seen in the hospital by Dr. Potts with oncology, who recommended holding treatment at this point as this was thought to be the cause of your weakness and blood count abnormalities. We recommend that you follow with Dr. Potts and your primary care provider to discuss your hospitalization and continued management of your condition. We also recommend a repeat CBC at follow-up with your primary care provider. If you have worsening symptoms, any other falls, or any new concerning symptoms please contact your healthcare provider or seek emergency medical care. Thank you for allowing us to participate in your care. Pending Studies at Discharge: No Stand-Alone Forms: My [facility], Smoking Cessation Medications and DC Order Prescriptions: Continued cetirizine 5 mg tablet 5 mg PO DAILY PRN (Reason: Allergy Symptoms) RF: 0 multivitamin Tablet 1 tab PO DAILY RF: 0 amiodarone 200 mg Tablet 200 mg PO DAILY RF: 0 promethazine 25 mg Suppository 25 mg [place] Q6H PRN (Reason: Nausea) RF: 0 prochlorperazine maleate 5 mg tablet 5 mg PO Q8 PRN (Reason: Nausea) RF: 0 sucralfate [Carafate] 1 gram Tablet 1 g PO ACHS RF: 0 cyanocobalamin (vitamin B-12) [Vitamin B-12] 1,000 mcg Tablet 1,000 mcg PO DAILY RF: 0 acyclovir 400 mg tablet 400 mg PO BID RF: 0 aspirin 81 mg Tablet,Delayed Release (Dr/Ec) 81 mg PO DAILY RF: 0 ascorbic acid (vitamin C) [Vitamin C] 500 mg Tablet 500 mg PO DAILY RF: 0 metoprolol tartrate 50 mg tablet 50 mg PO BID RF: 0 docusate sodium 100 mg Capsule 100 mg PO DAILY PRN (Reason: Constipation) RF: 0 mirtazapine 15 mg tablet 15 mg PO HS RF: 0 albuterol sulfate [Proventil HFA] 90 mcg/actuation Hfa Aerosol Inhaler 2 puff INHALATION Q6H PRN (Reason: Shortness Of Breath Or Wheezing) RF: 0 fluticasone propionate [Flonase Allergy Relief] 50 mcg/actuation [place],Suspension 1 spray INTRANASAL DAILY RF: 0 calcium carbonate-vitamin D3 [Calcium 600 + D(3)] 600 mg(1,500mg) -400 unit Tablet 1 tab PO DAILY RF: 0 guaifenesin [Mucinex] 600 mg Tablet Extended Release 12hr 600 mg PO BID RF: 0 omega 2-rqt-grx-fish oil 500-1,000 mg Capsule 2 cap PO DAILY RF: 0 gabapentin 100 mg Capsule 100 mg PO TID RF: 0 ondansetron HCl 8 mg tablet 8 mg PO UD RF: 0 potassium chloride 20 mEq tablet,ER particles/crystals 20 meq PO DAILY RF: 0 doxepin 25 mg Capsule 25 mg PO HS RF: 0 pantoprazole 20 mg Tablet,Delayed Release (Dr/Ec) 20 mg PO BID RF: 0 Discontinued dexamethasone 4 mg tablet 4 mg PO UD RF: 0 Revlimid 25 mg capsule 25 mg PO UD RF: 0 Discharge Orders: Discharge Order (Routine); Ordered 09/08/20 Ordered By: Micah Mcduffie Admission Data Admit Date/Time: 09/02/20 18:51 Attending Provider: Yeimi Pineda Admit Provider: Fracisco Baxter Primary Care Provider: Jeanne Ellis Osburn Other Providers: Alfonso Burk ; Devin Potts V. ; Trav Marroquin Other Interventions: Discharge Summary Assessment (RN) Last Done: 09/08/20 14:00 Supervising Physician Co-Signing Physician Notes Resident Physician Supervision Note: I independently interviewed and examined the patient and verified the [place] history and physical, reviewed labs and image studies, discussed the case with the resident Dr. Bazan and agree with the findings and care plan. Resident Activity Tracking Resident Involvement: Resident Care Provided Care Provided: Adult Hospital Medicine
== END 2020-09-08 15:36 | disposition home or self-care (01) | DRG 809 ==
LOC: ED 14:01 → 2W 18:51 → SUATTDRO 18:51 → 2W 20:26